=== PATIENT | female | born 1955 | race African-American/Black ===

== ENCOUNTER 2016-11-20 19:22 | Emergency (ER) | payer SELFPAY ==
[2016-11-20 19:33] VITALS: BP 135/70
--- NOTE | 2016-11-20 21:10 | ER Document Report ---
HPI - HPI Pain Level: 3 Notes: Patient is a 61-year-old female presents the ED complaining of right superior tooth pain 1 day. Patient states that she has not noticed any purulent discharge. The pain does not radiate. Patient states that she feels a little more swollen on the rt side of the mouth compared to her other side. Patient states that she is still eating and drinking without any difficulties. Patient states that she does have dental insurance but is doing research on dentist to see who will be able to "put her out" for tooth extraction. Denies any drug allergies. Patient does have hypertension and takes medication for that. Denies any other significant past medical history. Patient states that she does smoke but denies any other illicit drugs. Patient requests work note for today, but wants to go back tomorrow. Denies any fever, headache, dizziness, URI, sore throat, dysphagia, chest pain, palpitations, syncope, cough, shortness breath, wheeze, abdominal pain, nausea/vomiting/diarrhea, dysuria, joint pains, or rash. Denies any recent travel, illness, sick contacts. - ROS Notes: REVIEW OF SYSTEMS: CONSTITUTIONAL : Denies fever, chills, or sweats. Denies recent illness. EENT: see hpi CARDIOVASCULAR: Denies chest pain. Denies palpitations or racing or irregular heart beat. Denies ankle edema. RESPIRATORY: Denies cough, cold, or chest congestion. Denies shortness of breath, difficulty breathing, or wheezing. GASTROINTESTINAL: Denies abdominal pain or distention. Denies nausea, vomiting , or diarrhea. Denies blood in vomitus, stools, or per rectum. Denies black, tarry stools. Denies constipation. GENITOURINARY: Denies difficulty urinating, painful urination, burning, frequency, blood in urine, or discharge. MUSCULOSKELETAL: Denies back or neck pain or stiffness. Denies joint pain or swelling. SKIN: Denies rash, lesions or sores. NEUROLOGICAL: Denies confusion or altered mental status. Denies passing out or loss of consciousness. Denies dizziness or lightheadedness. Denies headache. Denies weakness or paralysis or loss of use of either side. Denies problems with gait or speech. Denies sensory loss, numbness, or tingling. ALL OTHER SYSTEMS REVIEWED AND NEGATIVE. Dictation was performed using [employer] voice recognition software - REPRODUCTIVE Reproductive: DENIES: : Past Medical History - Social History Smoking Status: Current Every Day Smoker Family History: Reviewed & Not Pertinent Patient has suicidal ideation: No Patient has homicidal ideation: No - Past Medical History Cardiac Medical History: Reports: Hx Hypertension Renal/ Medical History: Denies: Hx Peritoneal Dialysis Past Surgical History: Reports: Hx Hysterectomy - partial - Immunizations Hx Diphtheria, Pertussis, Tetanus Vaccination: Yes Vertical Provider Document - CONSTITUTIONAL Agree With Documented VS: Yes Notes: PHYSICAL EXAMINATION: GENERAL: Well-appearing, well-nourished and in no acute distress. HEAD: Atraumatic, normocephalic. EYES: Pupils equal round and reactive to light, extraocular movements intact, sclera anicteric, conjunctiva are normal. ENT: EAC clear b/l. TM's intact b/l without erythema, fluid, or perforation. Nares patent and without discharge. oropharynx clear without exudates. No tonsilar hypertrophy or erythema. Moist mucous membranes. No sinus tenderness. No tongue protrusion. [place] midline. No uvular deviation. Mouth: poor dentition, caries throughout, missing teeth. No obvious abscess or discharge noted. No ward's. + tenderness to palp of the #2-3. NECK: Normal range of motion, supple without lymphadenopathy. No rigidity/ meningismus. LUNGS: Breath sounds clear to auscultation bilaterally and equal. No wheezes rales or rhonchi. HEART: Regular rate and rhythm without murmurs, rubs, gallops. Extremities: No cyanosis, clubbing, or edema b/l. Peripheral pulses 2+. Capillary refill less than 3 seconds. NEUROLOGICAL: Cranial nerves grossly intact. Normal speech, normal gait. Normal sensory, motor exams PSYCH: Normal mood, normal affect. SKIN: Warm, Dry, normal turgor, no rashes or lesions noted. - INFECTION CONTROL TRAVEL OUTSIDE OF THE [place]S. IN LAST 30 DAYS: No - RESPIRATORY O2 Sat by Pulse Oximetry: 95 Course - Re-evaluation Re-evalutation: 11/20/16 21:23 Patient is an afebrile, well-hydrated, 61-year-old female presents to the ED with dental pain, ? Infection versus nerve etiology. Vitals are stable. PE otherwise unremarkable. Low suspicion for any oropharyngeal/retropharyngeal abscess, Ward's, sepsis, respiratory compromise, meningitis, or other deep space infection. I will cover her with clindamycin 3 times daily 10 days. Conservative measures otherwise for symptoms as needed. Patient will schedule an appointment with dentist in the next week. Recheck with your PCM in 2-3 days. Return to ED with any worsening/concerning symptoms otherwise as reviewed discharge. Patient is in agreement. - Vital Signs Vital signs: Temp Pulse Resp BP Pulse Ox 98.5 F 97 20 135/70 H 95 11/20/16 19:31 11/20/16 19:31 11/20/16 19:31 11/20/16 19:31 11/20/16 19:31 Discharge - Discharge Clinical Impression: Toothache Instructions: Toothache ([facility]), Clindamycin ([facility]) Additional Instructions: [place] and floss twice daily Tylenol/ibuprofen as needed Salt water gargles Peroxide and mouthwash rinses Maintain adequate fluid intake Schedule an appointment with a dentist this week* Recheck with your PCM in 2-3 days for a recheck Return to the ED with any worsening symptoms and/or development of fever, headache, trouble swallowing, purulent discharge, swelling underneath tongue, chest pain, palpitations, syncope, shortness of breath, trouble breathing, abdominal pain, n/v/d, or other worsening symptoms that are concerning to you. Prescriptions: Clindamycin HCl 300 mg PO TID #30 capsule Forms: Elevated Blood Pressure, Smoking Cessation Education, Return to Work Referrals: [facility] [Provider Group] - Follow up as needed
== END 2016-11-20 21:26 | disposition home or self-care (01) ==
LOC: ER 19:22
DX: K08.9 Disorder of teeth and supporting structures, unspecified (principal); I10 Essential (primary) hypertension; F17.200 Nicotine dependence, unspecified, uncomplicated; Z90.712 Acquired absence of cervix with remaining uterus
CPT/HCPCS: 99282

== ENCOUNTER → 2017-05-13 | Emergency (ER) | payer BC | LOC: ER 16:00 | DX: J32.9 Chronic sinusitis, unspecified (principal); J40 Bronchitis, not specified as acute or chronic; I10 Essential (primary) hypertension; R05 Cough; R09.89 Other specified symptoms and signs involving the circulatory and respiratory systems; Z79.899 Other long term (current) drug therapy; R09.81 Nasal congestion | CPT/HCPCS: 99283 ==

== ENCOUNTER 2017-06-20 16:10 | Emergency (ER) | payer SELFPAY ==
[2017-06-20 16:15] VITALS: BP 159/87
[2017-06-20] MEDS ORDERED: PENICILLIN V POTASSIUM 500 MG TABLET PO ONE (17:43)
[2017-06-20] MEDS ORDERED: LIDOCAINE 2% VISCOUS SOLN 20 ML UDCUP PO ONE (17:43)
--- NOTE | 2017-06-20 17:49 | ER Document Report ---
ED Oral Problem - General Chief Complaint: Toothache Stated Complaint: FACIAL SWELLING Time Seen by Provider: 06/20/17 17:23 Mode of Arrival: Ambulatory Information source: Patient Notes: 61-year-old female presented to ED for complaint of dental pain on the right upper back jaw times a week. She states she also has some swelling to her mouth and face. TRAVEL OUTSIDE OF THE U[place]S. IN LAST 30 DAYS: No - HPI Patient complains to provider of: Swelling of face - Minimal, Swelling of jaw, Toothache Onset: Last week Onset: Gradual Quality of pain: Sharp, Throbbing Severity: Severe Pain Level: 5 Swollen jaw/face: Mild Associated symptoms: Jaw pain, Toothache Worsened by: Cold Relieved by: Nothing Similar symptoms previously: Yes Recently seen / treated by doctor/dentist: No - Related Data Allergies/Adverse Reactions: No Known Allergies Allergy (Unverified 06/20/17 16:11) Past Medical History - General Information source: Patient - Social History Smoking Status: Current Every Day Smoker Cigarette use (# per day): Yes - 10 cigarettes a day Chew tobacco use (# tins/day): No Smoking Education Provided: Yes - 4 minutes Frequency of alcohol use: None Drug Abuse: None Occupation: [employer] Lives with: Family - Adult son Family History: COPD, DM, Hypertension, Malignancy. denies: Arthritis, CAD, CVA , Hyperlipidemia, Thyroid Disfunction Patient has suicidal ideation: No Patient has homicidal ideation: No - Past Medical History Cardiac Medical History: Reports: Hx Hypertension Pulmonary Medical History: Reports: None EENT Medical History: Reports: None Neurological Medical History: Reports: None Endocrine Medical History: Reports: None Renal/ Medical History: Reports: None Malignancy Medical History: Reports: None GI Medical History: Reports: None Musculoskeltal Medical History: Reports None Skin Medical History: Reports None Psychiatric Medical History: Reports: None Traumatic Medical History: Reports: None Infectious Medical History: Reports: None Past Surgical History: Reports: Hx Hysterectomy - Immunizations Hx Diphtheria, Pertussis, Tetanus Vaccination: Yes Review of Systems - Review of Systems Notes: Constitutional: [PRESENT: as per HPI. ABSENT: chills, fever(s), headache(s), weight gain, weight loss] Eyes: [ABSENT: visual disturbances] Ears: [ABSENT: hearing changes] Mouth and throat: Dental pain swelling to the jaw and face Cardiovascular: [ABSENT: chest pain, dyspnea on exertion, edema, orthropnea, palpitations] Respiratory: [ABSENT: cough, hemoptysis] Gastrointestinal: [ABSENT: abdominal pain, constipation, diarrhea, hematemesis, hematochezia, nausea, vomiting] Genitourinary: [ABSENT: dysuria, hematuria] Musculoskeletal: [ABSENT: joint swelling] Integumentary: [ABSENT: rash, wounds] Neurological: [ABSENT: abnormal gait, abnormal speech, confusion, dizziness, focal weakness, syncope] Psychiatric: [ABSENT: anxiety, depression, homicidal ideation, suicidal ideation ] Endocrine: [ABSENT: cold intolerance, heat intolerance, menstrual abnormalities , polydipsia, polyuria] Hematologic/Lymphatic: [ABSENT: easy bleeding, easy bruising, lymphadenopathy] Physical Exam - Vital signs Vitals: Temp Pulse Resp BP Pulse Ox 97.9 F 92 16 159/87 H 93 06/20/17 16:14 06/20/17 16:14 06/20/17 16:14 06/20/17 16:14 06/20/17 16:14 - Notes Notes: PHYSICAL EXAMINATION: GENERAL: Well-appearing, well-nourished and in no acute distress. HEAD: Atraumatic, normocephalic. EYES: Pupils equal round and reactive to light, extraocular movements intact, conjunctiva are normal. ENT: Nares patent, oropharynx clear without exudates. Moist mucous membranes. Tooth #3 inflamed with redness to the gums. Minimal swelling to the face at the area of the upper jaw. NECK: Normal range of motion, supple without lymphadenopathy LUNGS: Breath sounds clear to auscultation bilaterally and equal. No wheezes rales or rhonchi. HEART: Regular rate and rhythm without murmurs ABDOMEN: Soft, nontender, nondistended abdomen. No guarding, no rebound. No masses appreciated. Female : deferred Musculoskeletal: Normal range of motion, no pitting or edema. No cyanosis. NEUROLOGICAL: Cranial nerves grossly intact. Normal speech, normal gait. Normal sensory, motor exams PSYCH: Normal mood, normal affect. SKIN: Warm, Dry, normal turgor, no rashes or lesions noted. Course - Re-evaluation Re-evalutation: 06/20/17 19:03 Patient was treated with Penicillin VK and viscous lidocaine for her dental pain and minimal swelling to her face. Patient was instructed on use of salt and soda solution to rinse her mouth frequently, Tylenol, and ibuprofen for her pain. Patient was instructed that the only real definitive care for this dental pain is to visit the dentist and get treatment for her tooth. - Vital Signs Vital signs: Temp Pulse Resp BP Pulse Ox 97.9 F 92 16 159/87 H 93 06/20/17 16:14 06/20/17 16:14 06/20/17 16:14 06/20/17 16:14 06/20/17 16:14 Discharge - Discharge Clinical Impression: Pain due to dental caries Condition: Stable Disposition: HOME, SELF-CARE Additional Instructions: TOOTHACHE: Your pain is due to dental decay. The tooth must be repaired in order for you to feel better. You will, therefore, be referred to a dentist. We do not have dentists on the staff at [facility]. Severe swelling or drainage around a tooth usually means a dental abscess. This also requires evaluation and treatment by the dentist, but antibiotics may be prescribed while awaiting dental treatment. You should be rechecked immediately if you develop major swelling of the face, increasing pain, a lump in the jaw or gums, headache, difficulty swallowing, or fever. PENICILLIN V K: You have been given a prescription for Penicillin VK. Your physician has determined that this is the best antibiotic for your condition. Pen VK can be taken with meals, however more of the antibiotic gets into the bloodstream if it's taken on an empty stomach. Penicillin usually has no side effects. However, allergy to penicillins is common. If you have had an allergic reaction to any drug of the penicillin family, you should never take any other penicillin. Notify your doctor at once if you develop hives, itching, swelling, faintness, or shortness of breath. You have been provided with some viscous lidocaine which you can apply a small amount to your sore gums every 3-4 hours for your dental pain. Can also gargle with some warm salt and soda solution before applying the viscous lidocaine. Salt and soda solution 1 quart of water 1 tablespoon of salt 1 teaspoon of baking soda Mixed 3 ingredients together and boil for 1 minute Placed in a covered quart jar Use 1/2 ounce of cold solution to gargle 3 times a day FOLLOW-UP CARE: You have been referred for follow-up care to the dentists listed below. Call the dentists office for an appointment as you were instructed or within the next two days. If you experience worsening or a significant change in your symptoms, notify the physician immediately or return to the Emergency Department at any time for re-evaluation. [facility] [address] [place], [place] mornings, by appointment [facility] [address] [place] [address] [facility] [place] [address] [facility] [address] [facility] [address] [facility] [email or web address] [facility] [address] [place] [address] Sunday- 8:00am to 5:00 pm Will see patients from other [facility]. Charges based on income and family size and accepts Medicare, Medicaid, and Insurances Will pull molars [facility] [id number] Hours of Operation 8:00 am - 4:30 pm weekdays The following dental offices accept Medicaid: [facility] Dr. Claudio Dr. Bazan Dr. Carroll Dr. Miranda Amol Bah [place], and Sonya oral surgery Dr. Roldan ([place]) Dr. Vidal ([place]eg[place]) [facility] Drs. Lynne and Edu ([place]) Dr. Cao ([place]) [facility] Dr. Leija ([place]) Drs. Brownlee and ([place]) Medicaid Care Line Prescriptions: Penicillin V Potassium [Penicillin Vk 500 mg Tablet] 500 mg PO BID #20 tablet Forms: Elevated Blood Pressure, Smoking Cessation Education, Return to School Referrals: DANIAL HALL MD [Primary Care Provider] - Follow up as needed
== END 2017-06-20 18:01 | disposition home or self-care (01) ==
LOC: ER 16:10
DX: K08.9 Disorder of teeth and supporting structures, unspecified (principal); K02.9 Dental caries, unspecified; F17.210 Nicotine dependence, cigarettes, uncomplicated
CPT/HCPCS: 99282; J3490

== ENCOUNTER 2017-10-12 19:10 | Emergency (ER) | payer SELFPAY ==
[2017-10-12 19:22] VITALS: BP 168/75
[2017-10-12] MEDS ORDERED: ACETAMINOPHEN 325 MG TABLET PO ONE (19:50)
[2017-10-12] MEDS ORDERED: PENICILLIN V POTASSIUM 500 MG TABLET PO ONE (19:50)
--- NOTE | 2017-10-12 19:54 | ER Document Report ---
HPI - HPI Pain Level: 5 Context: Patient is a 61-year-old female presents emergency room with a chief complaint of right upper toothache since last evening. Patient admits to intermittent toothaches in the past and knows that she has to have this tooth pulled but has not been compliant with following up with the dentist secondary to pain concerns and she does not like needles. Otherwise denies any fever, facial swelling, nausea or vomiting or difficulty tolerating secretions. She denies any allergies. Patient was brought to [facility] secondary to difficulty obtaining a pulse ox in triage. Patient currently satting 98 200% on room air she is in no evidence of visual respiratory distress able to speak in clear sentences and denies any shortness of breath or chest pain - REPRODUCTIVE Reproductive: DENIES: : Past Medical History - Social History Smoking Status: Former Smoker Family History: COPD, DM, Hypertension, Malignancy. denies: Arthritis, CAD, CVA , Hyperlipidemia, Thyroid Disfunction - Past Medical History Cardiac Medical History: Reports: Hx Hypertension Renal/ Medical History: Denies: Hx Peritoneal Dialysis Past Surgical History: Reports: Hx Hysterectomy - Immunizations Hx Diphtheria, Pertussis, Tetanus Vaccination: Yes Vertical Provider Document - CONSTITUTIONAL Agree With Documented VS: No - patient is not hypoxic satting 98% on RA Notes: PHYSICAL EXAM GENERAL: Alert, interacts well. HEENT: NCAT, pale conjunctiva, extraocular movements intact, pupils PERRL. Patient admits to pain of the right upper jaw tooth #2 without any evidence of purulent drainage, gingival inflammation. Airway patent. No evidence of tonsillar enlargement, peritonsillar abscess, retropharyngeal abscess. LUNGS: Clear to auscultation bilaterally, no wheezes, rales, or rhonchi. No respiratory distress. HEART: Regular rate and rhythm. No murmurs, gallops, or rubs. EXTREMITIES: Moves all 4 extremities spontaneously. No edema, radial pulses 2/ 4 bilaterally. No cyanosis. NEUROLOGICAL: Alert and oriented x4. Normal speech. PSYCH: Normal affect, normal mood. SKIN: Warm, dry, normal turgor. No rashes or lesions noted. - INFECTION CONTROL TRAVEL OUTSIDE OF THE [place].S. IN LAST 30 DAYS: No Course - Re-evaluation Re-evalutation: 10/12/17 19:56 Presentation is most consistent with likely an infected tooth. Airway is patent. Vitals within normal limits. Patient is able swallow without any difficulty. There is no significant facial swelling. Patient will be started on antibiotics and a limited number of pain medications. I've instructed to follow-up with dentistry as earliest ability for definitive management. Return precautions and follow-up recommendations have been discussed at length. - Vital Signs Vital signs: Temp Pulse Resp BP Pulse Ox 98.5 F 98 18 168/75 H 84 L 10/12/17 19:21 10/12/17 19:21 10/12/17 19:21 10/12/17 19:21 10/12/17 19:21 Discharge - Discharge Clinical Impression: Toothache Condition: Good Disposition: HOME, SELF-CARE Additional Instructions: TOOTHACHE: Your pain is due to dental decay. The tooth must be repaired in order for you to feel better. You will, therefore, be referred to a dentist. We do not have dentists on the staff at [facility]. Severe swelling or drainage around a tooth usually means a dental abscess. This also requires evaluation and treatment by the dentist, but antibiotics may be prescribed while awaiting dental treatment. You should be rechecked immediately if you develop major swelling of the face, increasing pain, a lump in the jaw or gums, headache, difficulty swallowing, or fever. PENICILLIN V K: You have been given a prescription for Penicillin VK. Your physician has determined that this is the best antibiotic for your condition. Pen VK can be taken with meals, however more of the antibiotic gets into the bloodstream if it's taken on an empty stomach. Penicillin usually has no side effects. However, allergy to penicillins is common. If you have had an allergic reaction to any drug of the penicillin family, you should never take any other penicillin. Notify your doctor at once if you develop hives, itching, swelling, faintness, or shortness of breath. FOLLOW-UP CARE: You have been referred for follow-up care to the dentists listed below. Call the dentists office for an appointment as you were instructed or within the next two days. If you experience worsening or a significant change in your symptoms, notify the physician immediately or return to the Emergency Department at any time for re-evaluation. [facility] [address] Sunday mornings, by appointment [place] [id number] [place] [address] [facility] [address] [facility] [address] [facility] [address] [facility] [email or web address] [facility] [address] [place] [address] Sunday- 8:00am to 5:00 pm Will see patients from other [facility]. Charges based on income and family size and accepts Medicare, Medicaid, and Insurances Will pull molars [facility] Student Clinics [facility] [id number] Hours of Operation 8:00 am - 4:30 pm weekdays The following dental offices accept Medicaid: [facility] Dr. Claudio Dr. Bazan Dr. Carroll Dr. Miranda Amol Bah, Greta, and Sonya oral surgery Dr. Roldan ([place]) Dr. Vidal ([place]) [facility] Drs. Velasco ([place]) Dr. Cao ([place]) [facility] Dr. Leija ([place]) Drs. Brownlee and ([place]) Medicaid Care Line Prescriptions: Lisinopril/Hydrochlorothiazide [Lisinopril-Hctz 20-25 mg Tab] 1 each PO DAILY # 10 tablet Penicillin V Potassium [Penicillin Vk 500 mg Tablet] 500 mg PO TID 7 Days #21 tablet Forms: Elevated Blood Pressure, Return to Work Referrals: DANIAL HALL MD [Primary Care Provider] - Follow up in 3-5 days
== END 2017-10-12 20:00 | disposition home or self-care (01) ==
LOC: ER 19:10
DX: K08.9 Disorder of teeth and supporting structures, unspecified (principal); I10 Essential (primary) hypertension; Z87.891 Personal history of nicotine dependence; Z90.710 Acquired absence of both cervix and uterus
CPT/HCPCS: 99282

== ENCOUNTER 2017-12-18 20:04 | Emergency (ER) | payer OTHER ==
[2017-12-18] MEDS ORDERED: IPRATROPIUM/ALBUTEROL 0.5-2.5 MG/3 ML AMPUL NEB ONE (21:38)
[2017-12-18] MEDS ORDERED: PREDNISONE 20 MG TABLET PO ONE (21:38)
--- NOTE | 2017-12-18 21:41 | ER Document Report ---
ED Medical Screen (RME) - General Chief Complaint: Sore throat, cough Stated Complaint: SHORT OF BREATH Time Seen by Provider: 12/18/17 21:34 Notes: 62-year-old female with productive cough for 1 week, congestion, fever or chills , states she gets short of breath after coughing episodes but otherwise feels okay. No chest pain, vomiting, or other symptoms reported. Past medical history of hypertension, former smoker. TRAVEL OUTSIDE OF THE [place].S. IN LAST 30 DAYS: No - Related Data Allergies/Adverse Reactions: No Known Allergies Allergy (Verified 10/12/17 19:10) Past Medical History - Past Medical History Cardiac Medical History: Reports: Hx Hypertension Renal/ Medical History: Denies: Hx Peritoneal Dialysis Past Surgical History: Reports: Hx Hysterectomy - Immunizations Hx Diphtheria, Pertussis, Tetanus Vaccination: Yes Physical Exam - Vital signs Vitals: Temp Pulse BP Pulse Ox 98.9 F 87 136/65 H 93 12/18/17 20:28 12/18/17 20:28 12/18/17 20:28 12/18/17 20:28 - Respiratory Respiratory status: No: Respiratory distress, Labored Breath sounds: Decreased air movement, Nonproductive cough. No: Wheezing Course - Re-evaluation Re-evalutation: Patient speaking in full sentences, has decreased breath sounds bilaterally, no respiratory distress, borderline hypoxia on initial oxygen saturation. She is refusing "being poked"/labs initially, starting with CXR and medications. - Vital Signs Vital signs: Temp Pulse Resp BP Pulse Ox 98.9 F 87 136/65 H 93 12/18/17 20:28 12/18/17 20:28 12/18/17 20:28 12/18/17 20:28 Doctor's Discharge - Discharge Referrals: DANIAL HALL MD [Primary Care Provider] - Follow up as needed
--- NOTE | 2017-12-18 22:10 | RADIOLOGY REPORT (SQ) ---
EXAM DESCRIPTION: CHEST 2 VIEWS COMPLETED DATE/TIME: 12/18/2017 10:01 pm REASON FOR STUDY: productive cough for 1 week COMPARISON: 06/08/2015 EXAM PARAMETERS: NUMBER OF VIEWS: two views TECHNIQUE: Digital Frontal and Lateral radiographic views of the chest acquired. RADIATION DOSE: NA LIMITATIONS: none FINDINGS: LUNGS AND PLEURA: There appear to be mild chronic interstitial changes in the lung bases. No infiltrate or effusion is seen. MEDIASTINUM AND HILAR STRUCTURES: No masses or contour abnormalities. HEART AND VASCULAR STRUCTURES: Heart normal size. No evidence for failure. BONES: No acute findings. HARDWARE: None in the chest. OTHER: No other significant finding. IMPRESSION: Mild chronic lung changes with no acute cardiopulmonary disease. TECHNICAL DOCUMENTATION: JOB ID: [id number] [employer]- All Rights Reserved Reading location - IP/workstation name: [email or web address]
[2017-12-18] MEDS ORDERED: ALBUTEROL SULFATE HFA (90 MCG/PUFF) 8 GM MDI (1 MDI/ER DISP) IH ONE (22:36)
--- NOTE | 2017-12-18 22:36 | ER Document Report ---
ED General - General Chief Complaint: Sore throat, cough Stated Complaint: SHORT OF BREATH Time Seen by Provider: 12/18/17 21:34 Notes: Patient is a pleasant 62-year-old female presents with complaint of cough and congestion. She said some wheezing. She is a former smoker and quit 3 and half months ago. Denies any fevers. No vomiting. She has had a little bit of a sore throat from coughing. No other complaints at this time. She was seen in triage by her physicians and administrative assistant front desk who ordered a DuoNeb treatment. Patient says she has feels much improved after DuoNeb treatment. TRAVEL OUTSIDE OF THE [place] IN LAST 30 DAYS: No - Related Data Allergies/Adverse Reactions: No Known Allergies Allergy (Verified 10/12/17 19:10) Past Medical History - Social History Smoking Status: Former Smoker Frequency of alcohol use: None Drug Abuse: None Family History: COPD, DM, Hypertension, Malignancy. denies: Arthritis, CAD, CVA , Hyperlipidemia, Thyroid Disfunction Patient has suicidal ideation: No Patient has homicidal ideation: No - Past Medical History Cardiac Medical History: Reports: Hx Hypertension Renal/ Medical History: Denies: Hx Peritoneal Dialysis Past Surgical History: Reports: Hx Hysterectomy - Immunizations Hx Diphtheria, Pertussis, Tetanus Vaccination: Yes Review of Systems - Review of Systems Notes: My Normal Review Basic REVIEW OF SYSTEMS: CONSTITUTIONAL : Denies fever, chills, or sweats. Denies recent illness. EENT: Sore throat. CARDIOVASCULAR: Denies chest pain. RESPIRATORY: Recurrent cough. Some wheezing. GASTROINTESTINAL: Denies abdominal pain. Denies nausea, vomiting, or diarrhea. Denies constipation. Last BM: MUSCULOSKELETAL: Denies neck or back pain or joint pain or swelling. SKIN: Denies rash or skin lesions. NEUROLOGICAL: Denies altered mental status or loss of consciousness. Denies weakness or paralysis or loss of use of either side. Denies problems with gait or speech. Denies sensory or motor loss. ALL OTHER SYSTEMS REVIEWED AND NEGATIVE. Physical Exam - Vital signs Vitals: Temp Pulse BP Pulse Ox 98.9 F 87 136/65 H 93 12/18/17 20:28 12/18/17 20:28 12/18/17 20:28 12/18/17 20:28 - Notes Notes: General Appearance: Well nourished, alert, cooperative, no acute distress, no obvious discomfort. Well appearing. Vitals: reviewed, See vital signs table. Head: no swelling or tenderness to the head Eyes: PERRL, EOMI, Conjuctiva clear Mouth: No decreasd moisture Throat: No tonsillar inflammation, No airway obstruction, No lymphadenopathy Neck: Supple, no neck tenderness, No thyromegaly Lungs: Clear lung sounds bilaterally. No wheezing. No accessory muscle use. No tachypnea. Heart: Normal rate, Regular rythm, No murmur, no rub Skin: warm, dry, appropriate color, no rash Neuro: speech clear, oriented x 3, normal affect, responds appropriately to questions. Course - Re-evaluation Re-evalutation: 12/18/17 22:51 Patient has history of findings consistent with bronchitis. Her lung soto completely cleared with one DuoNeb treatment. Will place on prednisone. She is not a diabetic. We will give an albuterol inhaler to use. Chest x-ray does not show evidence of pneumonia. She has no fever. I do not feel she needs antibiotics at this time. Strongly encouraged her to return to ER immediately if she has recurrent difficulty breathing, any wheezing not responding to inhaler, fevers, or she feels she is worsening in any way. Patient agrees with plan will be discharged home. Dictation of this chart was performed using voice recognition software; therefore, there may be some unintended grammatical errors. - Vital Signs Vital signs: Temp Pulse Resp BP Pulse Ox 98.9 F 87 136/65 H 93 12/18/17 20:28 12/18/17 20:28 12/18/17 20:28 12/18/17 20:28 Discharge - Discharge Clinical Impression: Bronchitis Condition: Good Disposition: HOME, SELF-CARE Additional Instructions: BRONCHITIS WITH BRONCHOSPASM (WHEEZING): You have bronchitis with bronchospasm (wheezing). Sometimes people develop wheezing with a chest cold. This occurs either because of an underlying tendency toward asthma or because the virus itself irritates the bronchial tubes. This irritation causes cough, shortness of breath, and wheezing. Emergency treatment of bronchospasm may include adrenaline shots or bronchodilator aerosol. You may feel lightheaded and have a rapid pulse for an hour or two. Rest and get plenty of fluids. At home, we'll treat you with a bronchodilator inhaler. Corticosteroids may be required for some patients. Until you recover, avoid chemical fumes, dusts, pollens, and exercising in very cold or dry air. If you smoke, stop now! Most cases of bronchitis get better without antibiotics. We prescribe antibiotics when we believe bacteria are damaging your airways, or if there's high risk the bronchitis will worsen into pneumonia. Increase your fluid intake. A cool mist humidifier may make your lungs more comfortable. An expectorant (cough medicine that loosens phlegm) can help. Repeated episodes of bronchitis and bronchospasm may result in lung damage -- for example, chronic bronchitis, recurrent pneumonias, or emphysema. If you develop a fever, increased wheezing, chest pain, or severe shortness of breath, you should contact the doctor immediately. INHALED BRONCHODILATORS: You have received a treatment of and/or prescription for an inhaled bronchodilator -- a medication which stimulates the airways in the lung to dilate. This improves the flow of air in asthma, bronchitis, and emphysema. These medicines have some similarity to adrenaline, and can cause similar side effects: shakiness, racing heart, and a sense of nervousness. These side effects decrease with time. Contact your doctor if these side effects are severe. Do not over-use the medicine. Too-frequent use of the inhaler may make it ineffective. Call your doctor if the inhaler is not controlling your symptoms at the prescribed doses. STEROID MEDICATION: You have been given an injection of or oral medicine of the cortisone/ steroid class. This medication is used to control inflammation or allergy. Sergio t is usually only given for a short period of time, until the acute process subsides. There are usually no side effects from short-term use of cortisone-like medications. Some persons feel an increased sense of well-being and are not sleepy at bedtime. Long-term use of cortisone medications is best avoided, unless required for a severe condition. If your condition does not remit, or relapses after the course of corticosteroid medication, you should consult your physician. FOLLOW-UP CARE: If you have been referred to a physician for follow-up care, call the physician s office for an appointment as you were instructed or within the next two days. If you experience worsening or a significant change in your symptoms, notify the physician immediately or return to the Emergency Department at any time for re-evaluation. Please use the inhaler as 2 puffs as needed not to exceed 2 puffs every 2 hours. Please follow up with a doctor for reevaluation in 2-3 days. please return to the ER if you develop fevers, worsening difficulty breathing, or wheezing not improving with the inhaler. Prescriptions: Prednisone [Deltasone 20 mg Tablet] 3 tab PO DAILY 3 Days tablet Forms: Return to Work Referrals: DANIAL HALL MD [Primary Care Provider] - 12/20/17
[2017-12-18 23:53] VITALS: BP 163/87
== END 2017-12-18 23:36 | disposition home or self-care (01) ==
LOC: ER 20:04
DX: J40 Bronchitis, not specified as acute or chronic (principal); R05 Cough; J02.9 Acute pharyngitis, unspecified; R06.2 Wheezing; I10 Essential (primary) hypertension; Z87.891 Personal history of nicotine dependence; Z82.5 Family history of asthma and other chronic lower respiratory diseases
CPT/HCPCS: 94640; 99285; 71046; J7512; J3490; J7620

== ENCOUNTER 2017-12-23 20:41 | Emergency (ER) | payer OTHER ==
[2017-12-23] MEDS ORDERED: IPRATROPIUM/ALBUTEROL 0.5-2.5 MG/3 ML AMPUL NEB ONE (21:41)
--- NOTE | 2017-12-23 21:44 | ER Document Report ---
ED Respiratory Problem - General Chief Complaint: Breathing Difficulty Stated Complaint: BREATHING PROBLEMS Time Seen by Provider: 12/23/17 21:33 Notes: Patient is a 62-year-old female comes emergency department for chief complaint of difficulty breathing. She states that she was seen 1 week ago for cough and shortness of breath, told she had bronchitis, just completed steroids yesterday , states she does not feel any better. She denies fever, she states that she becomes very easily winded. She denies chest pain, dizziness, passing out. Former smoker. No daily medications other than the recent steroid and albuterol inhaler. TRAVEL OUTSIDE OF THE [place] IN LAST 30 DAYS: No - Related Data Allergies/Adverse Reactions: No Known Allergies Allergy (Verified 10/12/17 19:10) Past Medical History - General Information source: Patient - Social History Smoking Status: Former Smoker Frequency of alcohol use: None Drug Abuse: None Lives with: Alone Family History: COPD, DM, Hypertension, Malignancy. denies: Arthritis, CAD, CVA , Hyperlipidemia, Thyroid Disfunction - Past Medical History Cardiac Medical History: Reports: Hx Hypertension Renal/ Medical History: Denies: Hx Peritoneal Dialysis Past Surgical History: Reports: Hx Hysterectomy - Immunizations Hx Diphtheria, Pertussis, Tetanus Vaccination: Yes Review of Systems - Review of Systems Constitutional: No symptoms reported EENT: No symptoms reported Cardiovascular: No symptoms reported Respiratory: See HPI Gastrointestinal: No symptoms reported Genitourinary: No symptoms reported Female Genitourinary: No symptoms reported Musculoskeletal: No symptoms reported Skin: No symptoms reported Hematologic/Lymphatic: No symptoms reported Neurological/Psychological: No symptoms reported Physical Exam - Vital signs Vitals: Temp Pulse Resp BP Pulse Ox 98.4 F 105 H 22 H 167/90 H 92 12/23/17 20:46 12/23/17 20:46 12/23/17 20:46 12/23/17 20:46 12/23/17 20:46 - Notes Notes: GENERAL: Alert, interacts well. No acute distress. HEAD: Normocephalic, atraumatic. EYES: Pupils equal, round, and reactive to light. Extraocular movements intact. ENT: Oral mucosa moist, tongue midline. Normal oropharyngeal exam NECK: Full range of motion. Supple. Trachea midline. LUNGS: Mild tachypnea with some pursed lip breathing, decreased breath sounds, occasional cough HEART: Regular rate and rhythm. No murmur ABDOMEN: Soft, non-tender. Non-distended. Bowel sounds present in all 4 quadrants. EXTREMITIES: Moves all 4 extremities spontaneously. No edema, normal radial and dorsalis pedis pulses bilaterally. No cyanosis. BACK: no cervical, thoracic, lumbar midline tenderness. No saddle anesthesia, normal distal neurovascular exam. NEUROLOGICAL: Alert and oriented x3. Normal speech. [cranial nerves II through XII grossly intact]. PSYCH: Normal affect, normal mood. SKIN: Warm, dry, normal turgor. No rashes or lesions noted. Course - Re-evaluation Re-evalutation: On my evaluation patient is mildly tachypneic with pursed lips, has decreased breath sounds, otherwise unremarkable physical exam. Borderline tachycardia, no hypoxia. Given breathing treatment, chest x-ray performed and unremarkable, patient refuses labs. On reevaluation discussed with patient. She only took prednisone for 3 days, she definitely appears to need more for her resolving bronchitis. Patient in agreement with this but insists that she needs antibiotics, states that she is certain she is getting pneumonia. She does not have spiking fever, pneumonia on x-ray, or productive cough, however because of ongoing respiratory symptoms I did agree to place patient on doxycycline. Patient declining additional workup but does agree to ambulate with pulse oxygen measurement, she actually did this very well without any difficulty, no respiratory distress, tachycardia , or hypoxia. Patient states she has close follow-up with primary care already. Discussed return precautions. Patient states understanding and agreement. - Vital Signs Vital signs: Temp Pulse Resp BP Pulse Ox 97.9 F 95 18 119/85 96 12/23/17 22:42 12/23/17 22:42 12/23/17 22:42 12/23/17 22:42 12/23/17 22:42 Discharge - Discharge Clinical Impression: Shortness of breath Condition: Stable Disposition: HOME, SELF-CARE Additional Instructions: Your chest x-ray does not show any new or concerning findings. Your evaluation is consistent with not yet resolved bronchitis at this time. This can take time to resolve. We are extending and then slowly lowering your prednisone dosing, take as prescribed. Continue albuterol at home. Rest. Follow-up with your primary care provider. Return if you worsen including spiking fever, passing out, difficulty breathing, chest pain, or any other concerning or worsening symptoms. Prescriptions: Doxycycline Hyclate 100 mg PO BID #14 capsule Lisinopril/Hydrochlorothiazide [Lisinopril-Hctz 20-25 mg Tab] 1 each PO DAILY # 30 tablet Prednisone [Deltasone 10 mg Tablet] 10 mg PO ASDIR PRN #21 tablet PRN Reason: Forms: Return to Work Referrals: DANIAL HALL MD [Primary Care Provider] - Follow up as needed
--- NOTE | 2017-12-23 22:19 | RADIOLOGY REPORT (SQ) ---
EXAM DESCRIPTION: CHEST SINGLE VIEW COMPLETED DATE/TIME: 12/23/2017 10:11 pm REASON FOR STUDY: shortness of breath COMPARISON: 12/18/2017 EXAM PARAMETERS: NUMBER OF VIEWS: One view. TECHNIQUE: Single frontal radiographic view of the chest acquired. RADIATION DOSE: NA LIMITATIONS: None. FINDINGS: LUNGS AND PLEURA: No opacities, masses or pneumothorax. No pleural effusion. MEDIASTINUM AND HILAR STRUCTURES: No masses. Contour normal. HEART AND VASCULAR STRUCTURES: Heart normal in size. Normal vasculature. BONES: No acute findings. HARDWARE: None in the chest. OTHER: No other significant finding. IMPRESSION: NO ACUTE RADIOGRAPHIC FINDING IN THE CHEST. TECHNICAL DOCUMENTATION: JOB ID: [id number] [employer]- All Rights Reserved Reading location - IP/workstation name: [email or web address]
[2017-12-23] MEDS ORDERED: PREDNISONE 20 MG TABLET PO ONE (22:33)
[2017-12-23] MEDS ORDERED: DOXYCYCLINE HYCLATE 100 MG TABLET PO ONE (22:33)
[2017-12-23 22:44] VITALS: BP 119/85
== END 2017-12-23 22:55 | disposition home or self-care (01) ==
LOC: ER 20:41
DX: R06.02 Shortness of breath (principal); R06.00 Dyspnea, unspecified; I10 Essential (primary) hypertension; Z90.710 Acquired absence of both cervix and uterus
CPT/HCPCS: 94640; 99285; 71045; J7512; J7620

== ENCOUNTER 2018-01-08 23:55 | Inpatient (IN) | payer OTHER ==
[2018-01-09] MEDS ORDERED: IPRATROPIUM/ALBUTEROL 0.5-2.5 MG/3 ML AMPUL NEB ONE ×2 (04:07→04:09)
--- NOTE | 2018-01-09 04:41 | ER Document Report ---
ED Medical Screen (RME) - General Chief Complaint: Breathing Difficulty Stated Complaint: SHORTNESS OF BREATH Time Seen by Provider: 01/09/18 04:34 Notes: 62-year-old female with a history of COPD, former smoker stopped 3 months ago, seen by me about 3 weeks ago, and refused additional workup except for chest x- ray and had refused additional treatments except for doxycycline at the time. She admits that she still has difficulty breathing, dyspnea on exertion. Denies fever, passing out. TRAVEL OUTSIDE OF THE [place] IN LAST 30 DAYS: No - Related Data Allergies/Adverse Reactions: No Known Allergies Allergy (Verified 10/12/17 19:10) Past Medical History - Social History Chew tobacco use (# tins/day): No Frequency of alcohol use: None Drug Abuse: None - Past Medical History Cardiac Medical History: Reports: Hx Hypertension Pulmonary Medical History: Reports: Hx Bronchitis Renal/ Medical History: Denies: Hx Peritoneal Dialysis Past Surgical History: Reports: Hx Hysterectomy - Immunizations Hx Diphtheria, Pertussis, Tetanus Vaccination: Yes Physical Exam - Vital signs Vitals: Temp Pulse Resp BP Pulse Ox 97.6 F 109 H 26 H 151/81 H 94 01/09/18 00:01 01/09/18 00:01 01/09/18 00:01 01/09/18 00:01 01/09/18 00:01 - Respiratory Respiratory status: Tachypnea Breath sounds: Decreased air movement, Rales - Left lower lobe. No: Wheezing Course - Re-evaluation Re-evalutation: Patient with tachypnea, states she feels better after treatment she Tho received after initiated protocol before I saw the patient. She has soft rales in the left lower lung. No overt lower extremity swelling. Concerned that patient may have either pulmonary embolism, congestive heart failure, or other underlying abnormality the patient declined workup for previously. She agrees to it today. 01/09/18 04:43 I have greeted and performed a rapid initial assessment of this patient. A comprehensive ED assessment and evaluation of the patient, analysis of test results and completion of the medical decision making process will be conducted by additional ED providers. - Vital Signs Vital signs: Temp Pulse Resp BP Pulse Ox 97.6 F 109 H 29 H 178/102 H 94 01/09/18 00:01 01/09/18 00:01 01/09/18 04:11 01/09/18 04:11 01/09/18 00:01 Doctor's Discharge - Discharge Referrals: DANIAL HALL MD [Primary Care Provider] - Follow up as needed
--- NOTE | 2018-01-09 05:15 | RADIOLOGY REPORT (SQ) ---
EXAM DESCRIPTION: XR CHEST 1 VIEW COMPLETED DATE/TME: 01/09/2018 03:57 CLINICAL HISTORY: sob COMPARISON: 12/23/2017 FINDINGS: Single frontal view of the chest. The cardiomediastinal silhouette has normal size and contour. No consolidation, pneumothorax, or pleural effusion. No displaced rib fractures identified. Upper abdominal soft tissues are unremarkable. IMPRESSION: 1. No acute pulmonary process identified.
[2018-01-09 05:39] LABS: ABSOLUTE EOSINOPHILS # (AUTO) 0.1 10^3/uL (0.0-0.6); ABSOLUTE LYMPHOCYTES (AUTO) 1.2 10^3/uL (0.5-4.7); ABSOLUTE MONOCYTES (AUTO) 0.6 10^3/uL (0.1-1.4); ABSOLUTE NEUT (AUTO) 3.5 10^3/uL (1.7-8.2); BASOPHILS % (AUTO) 0.7 % (0-2); EOSINOPHILS % (AUTO) 2.1 % (0-6); HEMOGLOBIN 13.7 g/dL (12.0-15.5); LYMPHOCYTES % (AUTO) 21.9 % (13-45); MEAN CORPUSCULAR HEMOGLOBIN 33.1 pg (27.0-33.4); MEAN CORPUSCULAR HGB CONC 33.4 g/dL (32.0-36.0); MEAN CORPUSCULAR VOLUME 99 fl (80-97); PLATELET COUNT 213 10^3/uL (150-450); RED BLOOD COUNT 4.14 10^6/uL (3.72-5.28); RED CELL DISTRIBUTION WIDTH 15.6 % (11.5-14.0); SEGMENTED NEUTROPHILS % (AUTO) 64.3 % (42-78); TOTAL CELLS COUNTED % (AUTO) 100 %; WHITE BLOOD COUNT 5.4 10^3/uL (4.0-10.5)
[2018-01-09 05:51] LABS: ALANINE AMINOTRANSFERASE 87 U/L (9-52); ALBUMIN 3.4 g/dL (3.5-5.0); ALKALINE PHOSPHATASE 70 U/L (38-126); ANION GAP 5 (5-19); ASPARTATE AMINO TRANSFERASE 49 U/L (14-36); BILIRUBIN,DIRECT 0.3 mg/dL (0.0-0.4); BILIRUBIN,TOTAL 0.9 mg/dL (0.2-1.3); BLOOD UREA NITROGEN 22 mg/dL (7-20); CALCIUM 9.4 mg/dL (8.4-10.2); CARBON DIOXIDE 33 mmol/L (22-30); CHLORIDE 103 mmol/L (98-107); GLUCOSE 83 mg/dL (75-110); POTASSIUM 4.5 mmol/L (3.6-5.0); TOTAL PROTEIN 6.5 g/dL (6.3-8.2)
[2018-01-09 06:02] LABS: NT PRO BNP 6060 pg/mL (5-900)
[2018-01-09 06:06] LABS: TROPONIN I < 0.012 ng/mL
[2018-01-09] MEDS: ALBUTEROL SULFATE 0.083% NEB 2.5 MG/3 ML AMPUL NEB SCH ×2 (06:09→07:16)
[2018-01-09] MEDS ORDERED: FUROSEMIDE INJ/PF 20 MG/2 ML SDV IV ONE (06:53)
[2018-01-09 07:07] LABS: VENOUS BLOOD BASE EXCESS 6.1 mmol/L; VENOUS BLOOD HCO3 35.7 mmol/L (20-32); VENOUS BLOOD PH 7.28 (7.30-7.42)
--- NOTE | 2018-01-09 07:32 | EKG REPORT ---
SEVERITY:- ABNORMAL ECG - SINUS RHYTHM RIGHT AXIS DEVIATION CONSIDER LEFT VENTRICULAR HYPERTROPHY BORDERLINE T ABNORMALITIES, INFERIOR LEADS : Confirmed by: Neftaly Barrett MD 09-Jan-2018 07:31:34
--- NOTE | 2018-01-09 08:46 | ER Document Report ---
ED Respiratory Problem - General Chief Complaint: Breathing Difficulty Stated Complaint: SHORTNESS OF BREATH Time Seen by Provider: 01/09/18 04:34 Notes: 62-year-old female presents to the ER complaining of shortness of breath and chest discomfort. The patient had stated she has had issues on and off since October but over the last week she has been feeling worse. Patient stated it is worse when she lays flat. She has some chest tightness. She is having trouble breathing. She denies significant calf pain or leg swelling. Denies abdominal pain. Denies fevers chills or sore throat has had a nonproductive cough. TRAVEL OUTSIDE OF THE [place] IN LAST 30 DAYS: No - Related Data Allergies/Adverse Reactions: No Known Allergies Allergy (Verified 10/12/17 19:10) Past Medical History - Social History Smoking Status: Never Smoker Chew tobacco use (# tins/day): No Frequency of alcohol use: None Drug Abuse: None Family History: COPD, DM, Hypertension, Malignancy. denies: Arthritis, CAD, CVA , Hyperlipidemia, Thyroid Disfunction Patient has suicidal ideation: No Patient has homicidal ideation: No - Past Medical History Cardiac Medical History: Reports: Hx Hypertension Pulmonary Medical History: Reports: Hx Bronchitis Renal/ Medical History: Denies: Hx Peritoneal Dialysis Past Surgical History: Reports: Hx Hysterectomy - Immunizations Hx Diphtheria, Pertussis, Tetanus Vaccination: Yes Review of Systems - Review of Systems Constitutional: Diaphoresis. denies: Chills, Fever Cardiovascular: Chest pain, Orthopnea Respiratory: Cough, Short of breath, Wheezing. denies: Hurts to breathe Gastrointestinal: denies: Nausea, Vomiting Genitourinary: denies: Dysuria Neurological/Psychological: denies: Headaches -: Yes All other systems reviewed and negative Physical Exam - Vital signs Vitals: Temp Pulse Resp BP Pulse Ox 97.6 F 109 H 26 H 151/81 H 94 01/09/18 00:01 01/09/18 00:01 01/09/18 00:01 01/09/18 00:01 01/09/18 00:01 - Notes Notes: GENERAL_APPEARANCE: well_nourished, alert, cooperative, for distress VITALS: reviewed, see vital signs table. HEAD: no_swelling\tenderness on the head. EYES: PERRL, EOMI, conjunctiva_clear. NOSE: no_nasal_discharge. MOUTH: (-)decreased moisture. THROAT: no_throat_inflammation, no_airway_obstruction. no_lymphadenopathy NECK: supple, no_neck_tenderness, (-)thyromegaly. BACK: no_back_tenderness. CHEST_WALL: no_chest_tenderness. LUNGS: Scattered_wheezing, basilar_rales, no_rhonchi, mild accessory muscle use , there air exchange bilateral. HEART: normal_rate, normal_rhythm, normal_S1, normal_S2, (-)S3, (-)S4, no_ murmur, no_rub. ABDOMEN: normal_BS, soft, no_abd_tenderness, (-)guarding, (-)rebound, no_ organomegaly, no_abd_masses. EXTREMITIES: strength 5/5 in all_extremities, good pulses in all_extremities, no_swelling\tenderness in the extremities, no_edema. SKIN: warm, dry, good_color, no_rash. MENTAL_STATUS: speech_clear, oriented_X_3, normal_affect, responds_ appropriately to questions. Course - Re-evaluation Re-evalutation: 01/09/18 08:50 8-year-old female with history of COPD presents with diffuse wheezing. She also has some rales on exam. Her BNP is elevated. I gave her a small dose of Lasix she is not on that she has no history of CHF. Patient's PCO2 is elevated but she is likely a retainer with the amount of respiratory distress she had the patient will be admitted to the hospital and observed and continue to have serial aerosol treatments and possibly an echocardiogram a workup for possible new onset CHF. Patient is okay with this plan I spoke with her prior family practice doctor Dr. Hall but she does not see him anymore and I will call the hospitalist service. - Vital Signs Vital signs: Temp Pulse Resp BP Pulse Ox 97.6 F 109 H 23 H 159/97 H 96 01/09/18 00:01 01/09/18 00:01 01/09/18 08:00 01/09/18 07:00 01/09/18 08:00 - Laboratory Result Diagrams: 01/09/18 05:20 01/09/18 05:20 Laboratory results interpreted by me: 01/09/18 01/09/18 01/09/18 05:20 05:20 05:20 MCV 99 H RDW 15.6 H VBG pH VBG pCO2 VBG HCO3 Carbon Dioxide 33 H BUN 22 H Creatinine 1.26 H Est GFR ( Amer) 52 L Est GFR (Non-Af Amer) 43 L AST 49 H ALT 87 H NT-Pro-B Natriuret Pep 6060 H Albumin 3.4 L 01/09/18 06:50 MCV RDW VBG pH 7.28 L VBG pCO2 78.0 H* VBG HCO3 35.7 H Carbon Dioxide BUN Creatinine Est GFR ( Amer) Est GFR (Non-Af Amer) AST ALT NT-Pro-B Natriuret Pep Albumin - Diagnostic Test Radiology reviewed: Image reviewed Radiology results interpreted by me: 01/09/18 08:51 Chest X-Ray 01/09/18 03:57 IMPRESSION: 1. No acute pulmonary process identified. - EKG Interpretation by Me EKG shows normal: Sinus rhythm [place]/QRS: Right axis deviation Voltage: Consistant with LVH When compared to previous EKG there are: No significant change Discharge - Discharge Clinical Impression: COPD exacerbation CHF (congestive heart failure) Qualifiers: Heart failure type: systolic Heart failure chronicity: acute Qualified Code(s) : I50.21 - Acute systolic (congestive) heart failure Disposition: ADMITTED OBSERVATION Admitting Provider: Hospitalist Unit Admitted: Telemetry Referrals: DANIAL HALL MD [Primary Care Provider] - Follow up as needed
[2018-01-09] MEDS ORDERED: ACETAMINOPHEN 325 MG TABLET PO PRN (09:58)
[2018-01-09] MEDS ORDERED: MAGNESIUM HYDROXIDE SUSP 30 ML UDCUP PO PRN (09:58)
[2018-01-09] MEDS: DOCUSATE SODIUM 100 MG CAPSULE PO SCH ×2 (11:57→17:26)
[2018-01-09] MEDS: LANSOPRAZOLE 30 MG TAB.RAP.DR PO SCH (11:59)
[2018-01-09] MEDS: IPRATROPIUM BROMIDE 0.02% NEB 0.5 MG/2.5 ML AMPUL NEB SCH ×3 (12:19→23:48)
[2018-01-09] MEDS: LEVALBUTEROL HCL NEB 1.25 MG/3 ML AMPUL NEB SCH ×3 (12:19→23:48)
[2018-01-09 12:37] LABS: APPEARANCE,URINE CLEAR; BILIRUBIN,URINE NEGATIVE (NEGATIVE); COLOR,URINE STRAW; GLUCOSE, URINE NEGATIVE (NEGATIVE); KETONES,URINE NEGATIVE (NEGATIVE); LEUKOCYTE ESTERASE,URINE NEGATIVE (NEGATIVE); NITRITE,URINE NEGATIVE (NEGATIVE); PROTEIN,URINE NEGATIVE (NEGATIVE); URINE SPECIFIC GRAVITY 1.006; UROBILINOGEN,URINE NEGATIVE mg/dL (<2.0)
[2018-01-09] MEDS: HEPARIN SOD (PORCINE) 5,000 UNIT/ML 1 ML SYRINGE SUBCUT SCH ×2 (15:21→22:25)
[2018-01-09] MEDS: METHYLPREDNISOLONE INJ 40 MG/1 ML SDV IV SCH ×2 (15:22→22:25)
--- NOTE | 2018-01-09 21:19 | PDOC H&P ---
History of Present Illness Admission Date/PCP: 01/09/18 08:52 DANIAL HALL MD Patient complains of: Dyspnea History of Present Illness: CECILE BERRIOS is a 62 year old female who presented to the emergency room with a complaint of progressively worsening dyspnea. She admits that approximately a month or so ago she began having some trouble with dyspnea and was seen in the emergency room here and treated with antibiotic which seemed to help some in her dyspnea did not really get much worse but also did not really improve very much over the course of the next few weeks. Over the last week prior to this admission she has had gradually worsening symptoms to the point where she has developed dyspnea at rest as well as dyspnea with exertion and today she states that her dyspnea is severe. She states that she is not having any wheezing but is having a severely difficult time getting air in, as it feels like her chest is already full and there is no room to get any air inside. She denies cough fever chills episodes of syncope. She has not had prior symptoms this bad but has experienced numerous previous episodes of similar though less severe symptoms. She has not identified any aggravating or ameliorating factors for her dyspnea. She does give a history that she smoked in the past but has not been a smoker for some time and she denies any use of recreational drugs or alcohol. Past Medical History Cardiac Medical History: Reports: Hypertension Pulmonary Medical History: Reports: Bronchitis, Chronic Obstructive Pulmonary Disease (COPD) EENT Medical History: Reports: None Neurological Medical History: Reports: None Renal/ Medical History: Reports: None Malignancy Medical History: Reports: None GI Medical History: Reports: None Musculoskeltal Medical History: Reports: None Skin Medical History: Reports: None Psychiatric Medical History: Reports: None Traumatic Medical History: Reports: None Hematology: Reports: None Infectious Medical History: Reports: None Past Surgical History Past Surgical History: Reports: Hysterectomy Social History Smoking Status: Former Smoker Drugs: None - Advance Directive Resuscitation Status: Full Code Family History Family History: COPD, DM, Hypertension, Malignancy. denies: Arthritis, CAD, CVA , Hyperlipidemia, Thyroid Disfunction Parental Family History Reviewed: Yes Children Family History Reviewed: No Sibling(s) Family History Reviewed.: Yes Medication/Allergy Home Medications: Lisinopril/Hydrochlorothiazide [Lisinopril-Hctz 20-25 mg Tab] 1 each PO DAILY # 30 tablet 12/23/17 Allergies/Adverse Reactions: No Known Allergies Allergy (Verified 10/12/17 19:10) Review of Systems Constitutional: PRESENT: fatigue. ABSENT: chills, fever(s) Eyes: ABSENT: visual disturbances, other - No conjunctival discharge or scleral icterus Ears: ABSENT: hearing changes, other - No vertigo or discharge from the external auditory canals Nose, Mouth, and Throat: ABSENT: headache(s), mouth pain, sore throat Cardiovascular: PRESENT: dyspnea on exertion. ABSENT: chest pain, edema, orthropnea, palpitations Respiratory: PRESENT: dyspnea. ABSENT: cough, hemoptysis Gastrointestinal: ABSENT: abdominal pain, diarrhea, dysphagia, heartburn, melena , nausea, vomiting Genitourinary: ABSENT: dysuria, hematuria Musculoskeletal: ABSENT: deformity, joint swelling Integumentary: ABSENT: diaphoresis, pruritus, rash Neurological: ABSENT: abnormal movements, abnormal speech, confusion, convulsions, memory loss, syncope, tremor(s) Psychiatric: ABSENT: anxiety, depression, hallucinations Endocrine: ABSENT: cold intolerance, heat intolerance, polydipsia, polyphagia, polyuria Hematologic/Lymphatic: ABSENT: easy bleeding, easy bruising Allergic/Immunologic: ABSENT: seasonal rhinorrhea, other - No insect sting allergies Physical Exam Vital Signs: Temp Pulse Resp BP Pulse Ox 99.1 F 99 28 H 177/86 H 92 01/09/18 19:18 01/09/18 19:18 01/09/18 19:18 01/09/18 19:18 01/09/18 19:18 Intake & Output 01/08/18 01/09/18 01/10/18 06:59 06:59 06:59 Output Total 200 Balance -200 Weight 64.098 kg General appearance: PRESENT: cooperative, mild distress, well-developed, well- nourished Head exam: PRESENT: atraumatic, normocephalic Eye exam: PRESENT: conjunctiva pink. ABSENT: nystagmus, scleral icterus Ear exam: PRESENT: normal external ear exam. ABSENT: bleeding, drainage Mouth exam: PRESENT: moist, neck supple, tongue midline Respiratory exam: PRESENT: decreased breath sounds - With poor air movement in all soto, prolonged expiratory phas, symmetrical, wheezes - Very faint end expiratory wheezes Cardiovascular exam: PRESENT: RRR. ABSENT: clicks, diastolic murmur, gallop, rubs, systolic murmur Pulses: PRESENT: normal carotid pulses, normal radial pulses GI/Abdominal exam: PRESENT: normal bowel sounds, soft. ABSENT: distended, tenderness Extremities exam: PRESENT: full ROM. ABSENT: clubbing, joint swelling, pedal edema, tenderness Musculoskeletal exam: PRESENT: full ROM, normal inspection Neurological exam: PRESENT: alert, awake, oriented to person, oriented to place , oriented to time, oriented to situation, CN II-XII grossly intact. ABSENT: motor sensory deficit Psychiatric exam: PRESENT: appropriate affect, normal mood. ABSENT: anxious, depressed Skin exam: ABSENT: jaundice, rash, urticaria Results Laboratory Results: 01/09/18 11:45 Urine Color STRAW Urine Appearance CLEAR Urine pH 5.0 Ur Specific [place] 1.006 Urine Protein NEGATIVE Urine Glucose (UA) NEGATIVE Urine Ketones NEGATIVE Urine Blood NEGATIVE Urine Nitrite NEGATIVE Ur Leukocyte Esterase NEGATIVE Urine WBC (Auto) 0 EKG Comments: Normal sinus rhythm, left ventricular hypertrophy, right axis deviation, nonspecific T-wave changes Impressions: Chest X-Ray 01/09/18 03:57 IMPRESSION: 1. No acute pulmonary process identified. Status: Image reviewed by me Assessment & Plan - Diagnosis (1) Accelerated essential hypertension Is this a current diagnosis for this admission?: Yes Plan: Treat with lisinopril as she was taking at home but add metoprolol and consider using torsemide as a diuretic to control edema of of chf and aid in control of HTN (2) COPD exacerbation Is this a current diagnosis for this admission?: Yes Plan: Treatments and aggressive pulmonary toilet as well as IV steroids and monitor her respiratory improvement very closely. (3) CHF (congestive heart failure) Qualifiers: Heart failure type: diastolic Heart failure chronicity: acute Qualified Code(s): I50.31 - Acute diastolic (congestive) heart failure Is this a current diagnosis for this admission?: Yes Plan: BNP is elevated so will evaluate with a echocardiogram during this hospitalization. No clinical signs of CHF other than dyspnea are present. - Time Time Spent: Greater than 70 Minutes Medications reviewed and adjusted accordingly: Yes Within: within 72 hours
[2018-01-09] MEDS ORDERED: LISINOPRIL 10 MG TABLET PO ONE (22:00)
[2018-01-09] MEDS ORDERED: TORSEMIDE 20 MG TABLET PO ONE (22:00)
[2018-01-09] MEDS: METOPROLOL TARTRATE 25 MG TABLET PO SCH (22:25)
[2018-01-09] MEDS ORDERED: BUDESONIDE NEB 0.5 MG/2 ML AMPUL NEB ONE (22:30)
[2018-01-10] MEDS: IPRATROPIUM BROMIDE 0.02% NEB 0.5 MG/2.5 ML AMPUL NEB SCH ×3 (09:14→23:19)
[2018-01-10] MEDS: BUDESONIDE NEB 0.5 MG/2 ML AMPUL NEB SCH ×2 (09:14→20:57)
[2018-01-10] MEDS: LEVALBUTEROL HCL NEB 1.25 MG/3 ML AMPUL NEB SCH ×3 (09:14→23:19)
[2018-01-10 09:22] LABS: HEMOGLOBIN 14.1 g/dL (12.0-15.5); MEAN CORPUSCULAR HEMOGLOBIN 32.7 pg (27.0-33.4); MEAN CORPUSCULAR HGB CONC 32.8 g/dL (32.0-36.0); MEAN CORPUSCULAR VOLUME 100 fl (80-97); PLATELET COUNT 175 10^3/uL (150-450); RED BLOOD COUNT 4.32 10^6/uL (3.72-5.28); RED CELL DISTRIBUTION WIDTH 15.4 % (11.5-14.0); WHITE BLOOD COUNT 6.1 10^3/uL (4.0-10.5)
[2018-01-10 09:30] LABS: ANION GAP 5 (5-19); BLOOD UREA NITROGEN 30 mg/dL (7-20); CALCIUM 9.5 mg/dL (8.4-10.2); CARBON DIOXIDE 36 mmol/L (22-30); CHLORIDE 99 mmol/L (98-107); CHOLESTEROL 187.06 mg/dL (0-200); DIRECT LDL 98 mg/dL (<100); GLUCOSE 142 mg/dL (75-110); SODIUM 140.1 mmol/L (137-145); TRIGLYCERIDES 59 mg/dL (<150); VLDL CHOLESTEROL 11.8 mg/dL (10-31)
[2018-01-10] MEDS: METHYLPREDNISOLONE INJ 40 MG/1 ML SDV IV SCH ×3 (09:33→22:39)
[2018-01-10] MEDS: HEPARIN SOD (PORCINE) 5,000 UNIT/ML 1 ML SYRINGE SUBCUT SCH ×3 (09:33→22:40)
[2018-01-10] MEDS: LANSOPRAZOLE 30 MG TAB.RAP.DR PO SCH (09:33)
[2018-01-10] MEDS: LISINOPRIL 10 MG TABLET PO SCH (09:39)
[2018-01-10] MEDS: TORSEMIDE 20 MG TABLET PO SCH (09:39)
[2018-01-10] MEDS: DOCUSATE SODIUM 100 MG CAPSULE PO SCH ×2 (09:40→17:05)
[2018-01-10] MEDS: METOPROLOL TARTRATE 25 MG TABLET PO SCH ×2 (09:40→22:40)
--- NOTE | 2018-01-10 19:58 | XCELERA REPORT ---
[address] [address] Transthoracic Echocardiogram Report Name: CECILE BERRIOS Age: 62 yrs Gender: Female : 1955 Patient Status: Inpatient Patient Location: [address] [place] [address] Study Date: 01/10/2018 09:50 AM Procedure: A complete two-dimensional transthoracic echocardiogram was performed (2D, M-mode, spectral and color flow Doppler). The study was technically adequate with some images being suboptimal in quality. Reason For Study: Elevated BNP, severe dyspnea Ordering Physician: LORENA BENITO Performed By: Rossy Saavedra Interpretation Summary The left ventricular ejection fraction is normal. There is mild concentric left ventricular hypertrophy. The left ventricle is grossly normal size. Doppler measurements suggest pseudonormalized left ventricular relaxation, which is associated with grade II/IV or mild to moderate diastolic dysfunction Wall motion cannot be accurately commented on, but no definite regional wall motion abnormalities noted. The right ventricle is moderately dilated. There is moderate right ventricular hypertrophy. The right ventricular systolic function is mild to moderately reduced. Best estimated RVSP is approximately 65 mm/Hg. There is servere pulmonary hypertension by echo The right atrium is moderately dilated. Borderline left atrial enlargement. There is no mitral valve stenosis. There is a trace amount of mitral regurgitation There is no aortic valve stenosis No aortic regurgitation is present. There is a mild amount of tricuspid regurgitation The aortic root is not well visualized but is probably normal size. The inferior vena cava was not well visualized Small pericardial effusion. There are no echocardiographic or Doppler indications for cardiac tamponade MMode/2D Measurements & Calculations RVDd: 4.1 cm LVIDd: 3.9 cm FS: 33.2 % Ao root diam: 2.2 cm IVSd: 1.1 cm LVIDs: 2.6 cm EDV(Teich): 64.5 ml Ao root area: 3.9 cm2 LVPWd: 1.1 cm ESV(Teich): 24.2 ml EF(Teich): 62.5 % Doppler Measurements & Calculations MV E max praveena: MV dec slope: Ao V2 max: LV V1 max P.7 cm/sec 156.1 cm/sec 6.6 mmHg MV A max praveena: 327.9 cm/sec2 Ao max PG: LV V1 max: 84.2 cm/sec MV dec time: 0.19 sec 9.7 mmHg 128.2 cm/sec MV E/A: 0.76 PA V2 max: TR max praveena: 79.5 cm/sec 352.0 cm/sec PA max P.5 mmHgTR max P.6 mmHg Left Ventricle The left ventricle is grossly normal size. There is mild concentric left ventricular hypertrophy. The left ventricular ejection fraction is normal. Doppler measurements suggest pseudonormalized left ventricular relaxation, which is associated with grade II/IV or mild to moderate diastolic dysfunction. Wall motion cannot be accurately commented on, but no definite regional wall motion abnormalities noted. Right Ventricle The right ventricle is moderately dilated. There is moderate right ventricular hypertrophy. The right ventricular systolic function is mild to moderately reduced. Atria The right atrium is moderately dilated. Borderline left atrial enlargement. Interarterial septum not well visualized and not well dopplered. Cannot comment on ASD/PFO presence. Mitral Valve The mitral valve is grossly normal. There is no mitral valve stenosis. There is a trace amount of mitral regurgitation. Aortic Valve The aortic valve is grossly normal. There is no aortic valve stenosis. No aortic regurgitation is present. Tricuspid Valve The tricuspid valve is not well visualized, but is grossly normal. There is no tricuspid stenosis. There is a mild amount of tricuspid regurgitation. There is servere pulmonary hypertension by echo. Best estimated RVSP is approximately 65 mm/Hg. Great Vessels The aortic root is not well visualized but is probably normal size. The inferior vena cava was not well visualized. Effusions Small pericardial effusion. There are no echocardiographic or Doppler indications for cardiac tamponade. : LORENA BENITO > Julieta Baker
--- NOTE | 2018-01-10 20:37 | PDOC PROGRESS REPORT ---
Subjective Progress Note for:: 01/10/18 Subjective:: CECILE BERRIOS is a 62 year old female who presented to the emergency room with a complaint of progressively worsening dyspnea. She admits that approximately a month or so ago she began having some trouble with dyspnea and was seen in the emergency room here and treated with antibiotic which seemed to help some in her dyspnea did not really get much worse but also did not really improve very much over the course of the next few weeks. Over the last week prior to this admission she has had gradually worsening symptoms to the point where she has developed dyspnea at rest as well as dyspnea with exertion and today she states that her dyspnea is severe. She states that she is not having any wheezing but is having a severely difficult time getting air in, as it feels like her chest is already full and there is no room to get any air inside. She denies cough fever chills episodes of syncope. She has not had prior symptoms this bad but has experienced numerous previous episodes of similar though less severe symptoms. She has not identified any aggravating or ameliorating factors for her dyspnea. She does give a history that she smoked in the past but has not been a smoker for some time and she denies any use of recreational drugs or alcohol. 01/10/18: Cecile states that she feels like she is breathing better today is able to tolerate some light activity without significant dyspnea. She has noticed that she is beginning to make some wheezing sounds when she breathes but states that she overall feels much improved. She has not had any significant cough, hemoptysis, chest pain, palpitations or syncope. Reason For Visit: ACUTE EXACERBATION OF CHRONIC OBSTRUCTIVE Physical Exam Vital Signs: Temp Pulse Resp BP Pulse Ox 98.6 F 79 14 116/69 78 L 01/10/18 19:11 01/10/18 19:11 01/10/18 19:11 01/10/18 19:11 01/10/18 19:11 Intake & Output 01/09/18 01/10/18 01/11/18 06:59 06:59 06:59 Intake Total 220 Output Total 1700 Balance -1480 Weight 63.2 kg General appearance: PRESENT: no acute distress, cooperative Head exam: PRESENT: atraumatic, normocephalic Eye exam: PRESENT: conjunctiva pink. ABSENT: nystagmus, scleral icterus Ear exam: PRESENT: normal external ear exam. ABSENT: drainage Mouth exam: PRESENT: neck supple, tongue midline Neck exam: PRESENT: full ROM. ABSENT: thyromegaly, tracheal deviation Respiratory exam: PRESENT: decreased breath sounds, prolonged expiratory phas, symmetrical, wheezes. ABSENT: rales, retraction, rhonchi Cardiovascular exam: PRESENT: RRR. ABSENT: clicks, diastolic murmur, gallop, rubs, systolic murmur Pulses: PRESENT: normal carotid pulses, normal radial pulses, normal dorsalis pedis pul Vascular exam: PRESENT: normal capillary refill. ABSENT: pallor GI/Abdominal exam: PRESENT: normal bowel sounds, soft. ABSENT: distended, tenderness Extremities exam: ABSENT: joint swelling, pedal edema Musculoskeletal exam: PRESENT: full ROM, normal inspection Neurological exam: PRESENT: alert, altered, oriented to person, oriented to place, oriented to time, oriented to situation, CN II-XII grossly intact. ABSENT: motor sensory deficit Psychiatric exam: PRESENT: appropriate affect, normal mood Skin exam: ABSENT: jaundice, rash, urticaria Results Laboratory Results: 01/10/18 05:10 01/10/18 05:10 01/10/18 01/10/18 01/10/18 05:10 05:10 05:10 WBC 6.1 RBC 4.32 Hgb 14.1 Hct 43.0 MCV 100 H MCH 32.7 MCHC 32.8 RDW 15.4 H Plt Count 175 Sodium 140.1 Potassium 5.0 Chloride 99 Carbon Dioxide 36 H Anion Gap 5 BUN 30 H Creatinine 1.38 H Est GFR ( Amer) 47 L Est GFR (Non-Af Amer) 39 L Glucose 142 H Calcium 9.5 Magnesium 1.8 Triglycerides 59 Cholesterol 187.06 LDL Cholesterol Direct 98 VLDL Cholesterol 11.8 HDL Cholesterol 63 TSH 0.29 L Impressions: Chest X-Ray 01/09/18 03:57 IMPRESSION: 1. No acute pulmonary process identified. Assessment & Plan - Diagnosis (1) Accelerated essential hypertension Is this a current diagnosis for this admission?: Yes Plan: Continue lisinopril, metoprolol and torsemide in control of HTN (2) COPD exacerbation Is this a current diagnosis for this admission?: Yes Plan: Continue the aggressive pulmonary toilet as well as IV steroids and monitor her respiratory improvement very closely. (3) CHF (congestive heart failure) Qualifiers: Heart failure type: diastolic Heart failure chronicity: acute Qualified Code(s): I50.31 - Acute diastolic (congestive) heart failure Is this a current diagnosis for this admission?: Yes Plan: Echocardiogram shows mild to moderate diastolic dysfunction. Is on appropriate medications for treatment of this degree of congestive heart failure. Spironolactone will be added today. - Time Time Spent with patient: 35 or more minutes Medications reviewed and adjusted accordingly: Yes Within: within 72 hours
[2018-01-10] MEDS: ALBUTEROL SULFATE 0.083% NEB 2.5 MG/3 ML AMPUL NEB PRN (20:57)
[2018-01-11] MEDS: HEPARIN SOD (PORCINE) 5,000 UNIT/ML 1 ML SYRINGE SUBCUT SCH ×3 (05:31→21:06)
[2018-01-11] MEDS: METHYLPREDNISOLONE INJ 40 MG/1 ML SDV IV SCH ×3 (05:31→21:07)
[2018-01-11] MEDS: LANSOPRAZOLE 30 MG TAB.RAP.DR PO SCH (05:39)
[2018-01-11] MEDS: IPRATROPIUM BROMIDE 0.02% NEB 0.5 MG/2.5 ML AMPUL NEB SCH ×2 (08:46→15:33)
[2018-01-11] MEDS: BUDESONIDE NEB 0.5 MG/2 ML AMPUL NEB SCH ×2 (08:46→19:31)
[2018-01-11] MEDS: LEVALBUTEROL HCL NEB 1.25 MG/3 ML AMPUL NEB SCH ×2 (08:46→15:33)
[2018-01-11] MEDS: DOCUSATE SODIUM 100 MG CAPSULE PO SCH ×3 (09:01→17:44)
[2018-01-11] MEDS: LISINOPRIL 10 MG TABLET PO SCH (09:07)
[2018-01-11] MEDS: METOPROLOL TARTRATE 25 MG TABLET PO SCH ×2 (09:08→21:06)
[2018-01-11] MEDS: TORSEMIDE 20 MG TABLET PO SCH (09:08)
[2018-01-11] MEDS ORDERED: SPIRONOLACTONE 25 MG TABLET PO SCH (10:00)
[2018-01-11] MEDS: ALBUTEROL SULFATE 0.083% NEB 2.5 MG/3 ML AMPUL NEB PRN (19:30)
[2018-01-12] MEDS: LEVALBUTEROL HCL NEB 1.25 MG/3 ML AMPUL NEB SCH ×4 (00:38→23:42)
[2018-01-12] MEDS: IPRATROPIUM BROMIDE 0.02% NEB 0.5 MG/2.5 ML AMPUL NEB SCH ×4 (00:38→23:42)
--- NOTE | 2018-01-12 00:55 | PDOC PROGRESS REPORT ---
Subjective Progress Note for:: 01/11/18 Subjective:: CECILE BERRIOS is a 62 year old female who presented to the emergency room with a complaint of progressively worsening dyspnea. She admits that approximately a month or so ago she began having some trouble with dyspnea and was seen in the emergency room here and treated with antibiotic which seemed to help some in her dyspnea did not really get much worse but also did not really improve very much over the course of the next few weeks. Over the last week prior to this admission she has had gradually worsening symptoms to the point where she has developed dyspnea at rest as well as dyspnea with exertion and today she states that her dyspnea is severe. She states that she is not having any wheezing but is having a severely difficult time getting air in, as it feels like her chest is already full and there is no room to get any air inside. She denies cough fever chills episodes of syncope. She has not had prior symptoms this bad but has experienced numerous previous episodes of similar though less severe symptoms. She has not identified any aggravating or ameliorating factors for her dyspnea. She does give a history that she smoked in the past but has not been a smoker for some time and she denies any use of recreational drugs or alcohol. 01/10/18: Cecile states that she feels like she is breathing better today is able to tolerate some light activity without significant dyspnea. She has noticed that she is beginning to make some wheezing sounds when she breathes but states that she overall feels much improved. She has not had any significant cough, hemoptysis, chest pain, palpitations or syncope. 01/11/18: Cecile is agian breathing very well. She is tolerating significant in room activity well. She speaks in full sentences and appears very comfortable. She denies pain and her wheezing is improved as is her air hunger sensation. Reason For Visit: ACUTE EXACERBATION OF CHRONIC OBSTRUCTIVE Physical Exam Vital Signs: Temp Pulse Resp BP Pulse Ox 98.5 F 82 17 95/68 L 95 01/11/18 23:28 01/11/18 23:28 01/11/18 23:28 01/11/18 23:28 01/11/18 23:28 Intake & Output 01/10/18 01/11/18 01/12/18 06:59 06:59 06:59 Intake Total 384 Output Total 1500 Balance -1116 General appearance: PRESENT: no acute distress, cooperative Head exam: PRESENT: atraumatic, normocephalic Eye exam: PRESENT: conjunctiva pink. ABSENT: scleral icterus Ear exam: PRESENT: normal external ear exam. ABSENT: drainage Mouth exam: PRESENT: neck supple, tongue midline Neck exam: ABSENT: thyromegaly, tracheal deviation Respiratory exam: PRESENT: decreased breath sounds - moving air fairly well, prolonged expiratory phas, symmetrical, unlabored - still fairly shallow breathing noted, wheezes - end expiratory. ABSENT: rales, rhonchi, stridor, tachypnea Cardiovascular exam: PRESENT: RRR. ABSENT: clicks, gallop, rubs Pulses: PRESENT: normal radial pulses, normal dorsalis pedis pul Vascular exam: PRESENT: normal capillary refill. ABSENT: pallor GI/Abdominal exam: PRESENT: normal bowel sounds, soft. ABSENT: tenderness Extremities exam: ABSENT: joint swelling, pedal edema Musculoskeletal exam: PRESENT: full ROM, normal inspection Neurological exam: PRESENT: alert, awake, oriented to person, oriented to place , oriented to time, oriented to situation, CN II-XII grossly intact. ABSENT: motor sensory deficit Psychiatric exam: PRESENT: appropriate affect, normal mood Skin exam: ABSENT: jaundice, rash, urticaria Results Impressions: Chest X-Ray 01/09/18 03:57 IMPRESSION: 1. No acute pulmonary process identified. Assessment & Plan - Diagnosis (1) Accelerated essential hypertension Is this a current diagnosis for this admission?: Yes Plan: Continue lisinopril, metoprolol and torsemide in control of HTN (2) COPD exacerbation Is this a current diagnosis for this admission?: Yes Plan: Continue the aggressive pulmonary toilet as well as IV steroids and monitor her respiratory improvement very closely. Oral steroid tomorrow if continues to improve. (3) CHF (congestive heart failure) Qualifiers: Heart failure type: diastolic Heart failure chronicity: acute Qualified Code(s): I50.31 - Acute diastolic (congestive) heart failure Is this a current diagnosis for this admission?: Yes Plan: Echocardiogram shows mild to moderate diastolic dysfunction. Is on appropriate medications for treatment of this degree of congestive heart failure. Spironolactone will be added today. - Time Time Spent with patient: 25-34 minutes Medications reviewed and adjusted accordingly: Yes Anticipated discharge: Home Within: within 72 hours
[2018-01-12] MEDS: METHYLPREDNISOLONE INJ 40 MG/1 ML SDV IV SCH ×2 (05:23→13:37)
[2018-01-12] MEDS: HEPARIN SOD (PORCINE) 5,000 UNIT/ML 1 ML SYRINGE SUBCUT SCH ×3 (05:23→22:00)
[2018-01-12] MEDS: LANSOPRAZOLE 30 MG TAB.RAP.DR PO SCH (05:24)
[2018-01-12] MEDS: BUDESONIDE NEB 0.5 MG/2 ML AMPUL NEB SCH ×2 (08:10→20:56)
[2018-01-12] MEDS: SPIRONOLACTONE 25 MG TABLET PO SCH (10:36)
[2018-01-12] MEDS: LOSARTAN POTASSIUM 50 MG TABLET PO SCH (10:36)
[2018-01-12] MEDS: DOCUSATE SODIUM 100 MG CAPSULE PO SCH ×2 (10:36→17:15)
[2018-01-12] MEDS: TORSEMIDE 20 MG TABLET PO SCH (10:37)
[2018-01-12] MEDS: METOPROLOL SUCCINATE 50 MG TAB.SR.24H PO SCH (10:37)
[2018-01-12] MEDS ORDERED: PREDNISONE 20 MG TABLET PO ONE (15:22)
--- NOTE | 2018-01-12 15:22 | PDOC PROGRESS REPORT ---
Subjective Progress Note for:: 01/12/18 Subjective:: CECILE BERRIOS is a 62 year old female who presented to the emergency room with a complaint of progressively worsening dyspnea. She admits that approximately a month or so ago she began having some trouble with dyspnea and was seen in the emergency room here and treated with antibiotic which seemed to help some in her dyspnea did not really get much worse but also did not really improve very much over the course of the next few weeks. Over the last week prior to this admission she has had gradually worsening symptoms to the point where she has developed dyspnea at rest as well as dyspnea with exertion and today she states that her dyspnea is severe. She states that she is not having any wheezing but is having a severely difficult time getting air in, as it feels like her chest is already full and there is no room to get any air inside. She denies cough fever chills episodes of syncope. She has not had prior symptoms this bad but has experienced numerous previous episodes of similar though less severe symptoms. She has not identified any aggravating or ameliorating factors for her dyspnea. She does give a history that she smoked in the past but has not been a smoker for some time and she denies any use of recreational drugs or alcohol. 01/10/18: Cecile states that she feels like she is breathing better today is able to tolerate some light activity without significant dyspnea. She has noticed that she is beginning to make some wheezing sounds when she breathes but states that she overall feels much improved. She has not had any significant cough, hemoptysis, chest pain, palpitations or syncope. 01/11/18: Cecile is again breathing very well. She is tolerating significant in room activity well. She speaks in full sentences and appears very comfortable. She denies pain and her wheezing is improved as is her air hunger sensation. 01/12/18: Cecile states she is feeling improved even more today. She is able to be up and active in her room without any dyspnea, she has not been using oxygen with a good tolerance for activity on room air. She feels that her wheezing has improved considerably and she continues to be free of cough, hemoptysis, chest pain, palpitations and syncope. I spoke with her and her sister who joined our conversation on the telephone today at length about Cecile's treatment and her discharge within the next 24-48 hours. Reason For Visit: ACUTE EXACERBATION OF COPD Physical Exam Vital Signs: Temp Pulse Resp BP Pulse Ox 98.4 F 80 20 134/78 H 100 01/12/18 11:25 01/12/18 11:25 01/12/18 11:25 01/12/18 11:25 01/12/18 11:25 Intake & Output 01/11/18 01/12/18 01/13/18 06:59 06:59 06:59 Intake Total 384 Output Total 1500 Balance -1116 Weight 64.1 kg General appearance: PRESENT: no acute distress, cooperative Head exam: PRESENT: atraumatic, normocephalic Eye exam: PRESENT: conjunctiva pink. ABSENT: conjunctival injection Ear exam: PRESENT: normal external ear exam. ABSENT: drainage Mouth exam: PRESENT: moist, neck supple Neck exam: ABSENT: thyromegaly, tracheal deviation Respiratory exam: PRESENT: prolonged expiratory phas, symmetrical, unlabored, wheezes, other - Good air movement in all soto. Minimal end expiratory wheezes are noted. Cardiovascular exam: PRESENT: RRR. ABSENT: clicks, gallop, rubs Vascular exam: PRESENT: normal capillary refill. ABSENT: pallor GI/Abdominal exam: PRESENT: normal bowel sounds, soft Extremities exam: ABSENT: joint swelling, pedal edema, tenderness Musculoskeletal exam: PRESENT: full ROM, normal inspection Neurological exam: PRESENT: alert, awake, oriented to person, oriented to place , oriented to time, oriented to situation, CN II-XII grossly intact. ABSENT: motor sensory deficit Psychiatric exam: PRESENT: appropriate affect, normal mood Skin exam: ABSENT: jaundice, rash, urticaria Results Impressions: Chest X-Ray 01/09/18 03:57 IMPRESSION: 1. No acute pulmonary process identified. Assessment & Plan - Diagnosis (1) Accelerated essential hypertension Is this a current diagnosis for this admission?: Yes Plan: Increase metoprolol XL to 100 mg p.o. daily reduce torsemide to 5 mg p.o. daily reduce Spironolactone to 12.5 mg p.o. daily and discontinue lisinopril. Continue Norvasc 10 mg p.o. daily (2) COPD exacerbation Is this a current diagnosis for this admission?: Yes Plan: Continue pulmonary toilet at a level which she may continue to use at home as and twice daily dosing of Pulmicort and 3 times per day as needed utilization of Xopenex and Atrovent. Discontinue IV steroids and start oral prednisone at 40 mg daily. Plan discharge for tomorrow if her progress continues and she remains stable. (3) CHF (congestive heart failure) Qualifiers: Heart failure type: diastolic Heart failure chronicity: acute Qualified Code(s): I50.31 - Acute diastolic (congestive) heart failure Is this a current diagnosis for this admission?: Yes Plan: Echocardiogram shows mild to moderate diastolic dysfunction. Though she does not have any clinical signs of congestive heart failure, her hypertension needs to be treated and utilizing metoprolol XL as well as Spironolactone in the treatment protocol is certainly warranted. Additionally she is taking Norvasc and torsemide which helped to control her hypertension. - Time Time Spent with patient: 35 or more minutes Medications reviewed and adjusted accordingly: Yes - While he was Anticipated discharge: Home Within: within 24 hours
[2018-01-12 17:19] LABS: HEMATOCRIT 45.1 % (36.0-47.0); HEMOGLOBIN 14.9 g/dL (12.0-15.5); MEAN CORPUSCULAR HEMOGLOBIN 32.9 pg (27.0-33.4); MEAN CORPUSCULAR VOLUME 100 fl (80-97); PLATELET COUNT 256 10^3/uL (150-450); RED BLOOD COUNT 4.53 10^6/uL (3.72-5.28); RED CELL DISTRIBUTION WIDTH 15.5 % (11.5-14.0); WHITE BLOOD COUNT 9.9 10^3/uL (4.0-10.5)
[2018-01-12 17:27] LABS: ANION GAP 6 (5-19); BLOOD UREA NITROGEN 43 mg/dL (7-20); CARBON DIOXIDE 35 mmol/L (22-30); CHLORIDE 98 mmol/L (98-107); GLUCOSE 122 mg/dL (75-110); POTASSIUM 4.1 mmol/L (3.6-5.0); SODIUM 139.1 mmol/L (137-145)
[2018-01-13] MEDS: HEPARIN SOD (PORCINE) 5,000 UNIT/ML 1 ML SYRINGE SUBCUT SCH ×2 (05:09→13:36)
[2018-01-13] MEDS: LANSOPRAZOLE 30 MG TAB.RAP.DR PO SCH (05:10)
[2018-01-13] MEDS: BUDESONIDE NEB 0.5 MG/2 ML AMPUL NEB SCH (07:57)
[2018-01-13] MEDS: IPRATROPIUM BROMIDE 0.02% NEB 0.5 MG/2.5 ML AMPUL NEB SCH ×2 (07:58→15:37)
[2018-01-13] MEDS: LEVALBUTEROL HCL NEB 1.25 MG/3 ML AMPUL NEB SCH ×2 (07:58→15:37)
[2018-01-13] MEDS ORDERED: PREDNISONE 20 MG TABLET PO SCH (08:00)
[2018-01-13] MEDS: SPIRONOLACTONE 25 MG TABLET PO SCH (10:04)
[2018-01-13] MEDS: LOSARTAN POTASSIUM 50 MG TABLET PO SCH (10:04)
[2018-01-13] MEDS: METOPROLOL SUCCINATE 50 MG TAB.SR.24H PO SCH (10:04)
[2018-01-13] MEDS: TORSEMIDE 20 MG TABLET PO SCH (10:04)
[2018-01-13] MEDS: DOCUSATE SODIUM 100 MG CAPSULE PO SCH ×2 (10:04→17:00)
[2018-01-13 11:01] LABS: MEAN CORPUSCULAR HEMOGLOBIN 32.1 pg (27.0-33.4); MEAN CORPUSCULAR HGB CONC 32.6 g/dL (32.0-36.0); MEAN CORPUSCULAR VOLUME 99 fl (80-97); PLATELET COUNT 218 10^3/uL (150-450); RED BLOOD COUNT 4.67 10^6/uL (3.72-5.28); RED CELL DISTRIBUTION WIDTH 15.8 % (11.5-14.0); WHITE BLOOD COUNT 12.2 10^3/uL (4.0-10.5)
[2018-01-13 11:20] LABS: ANION GAP 6 (5-19); BLOOD UREA NITROGEN 45 mg/dL (7-20); CALCIUM 8.9 mg/dL (8.4-10.2); CARBON DIOXIDE 32 mmol/L (22-30); CHLORIDE 100 mmol/L (98-107); GLUCOSE 135 mg/dL (75-110); POTASSIUM 3.9 mmol/L (3.6-5.0); SODIUM 137.6 mmol/L (137-145)
[2018-01-13 11:38] LABS: FREE T3 1.85 pg/mL (2.77-5.27); FREE T4 (FREE THYROXINE) 0.7 ng/dL (0.78-2.19)
--- NOTE | 2018-01-13 16:46 | PDOC DISCHARGE SUMMARY ---
General - Admit/Disc Date/PCP Admission Date/Primary Care Provider: 01/11/18 16:16 Discharge Date: 01/13/18 - Discharge Diagnosis (1) Accelerated essential hypertension Is this a current diagnosis for this admission?: Yes Summary: Her hypertension responded well to treatment with oral agents and has been reasonably well-controlled utilizing metoprolol and losartan. She will be discharged with her hospital antihypertensive regimen. (2) COPD exacerbation Is this a current diagnosis for this admission?: Yes Summary: Her COPD responded very well to aggressive pulmonary toilet and IV steroids. She is going to be discharged home with home oxygen at 2 L/min per nasal cannula while active. She does not require oxygen support when she is at rest. (3) CHF (congestive heart failure) Is this a current diagnosis for this admission?: Yes Summary: Patient is noted to have chronic diastolic congestive heart failure [place] [employer] class II on her echocardiogram and clinical evaluation. Her medications have been selected to treat her hypertension and her congestive heart failure time currently. She was not started on a statin therapy as her serum lipid panel did not indicate the need for statin at this time however one could be added later when she is seen in follow-up with her primary care provider. - Additional Information Resuscitation Status: Full Code Discharge Diet: Cardiac Discharge Activity: Activity As Tolerated, Balance Activity w/Rest, Energy Conservation, Weigh Daily Prescriptions: Ipratropium Ethel [Atrovent 0.02% Neb 0.5 mg/2.5 ml Ampul] 0.5 mg NEB TID 30 Days #90 vial.neb Levalbuterol HCl [Xopenex Neb 1.25 mg/3 ml Ampul] 1.25 mg NEB TID 30 Days #90 vial.neb Losartan Potassium 100 mg PO DAILY 30 Days #30 tablet Metoprolol Succinate 100 mg PO DAILY 30 Days #30 tab.er.24h Spironolactone [Aldactone 25 mg Tablet] 12.5 mg PO DAILY 30 Days #15 tablet Home Medications: Ipratropium Ethel [Atrovent 0.02% Neb 0.5 mg/2.5 ml Ampul] 0.5 mg NEB TID 30 Days #90 vial.neb 01/13/18 Levalbuterol HCl [Xopenex Neb 1.25 mg/3 ml Ampul] 1.25 mg NEB TID 30 Days #90 vial.neb 01/13/18 Losartan Potassium 100 mg PO DAILY 30 Days #30 tablet 01/13/18 Losartan Potassium [Cozaar 50 mg Tablet] 100 mg PO DAILY tablet 01/13/18 Metoprolol Succinate 100 mg PO DAILY 30 Days #30 tab.er.24h 01/13/18 Metoprolol Succinate [Toprol Xl 50 mg Tab.sr] 100 mg PO DAILY tab.sr.24h Spironolactone [Aldactone 25 mg Tablet] 12.5 mg PO DAILY 30 Days #15 tablet 01/22 History of Present Illness Patient complains of: Dyspnea History of Present Illness: CECILE BERRIOS is a 62 year old female who presented to the emergency room with a complaint of progressively worsening dyspnea. She admits that approximately a month or so ago she began having some trouble with dyspnea and was seen in the emergency room here and treated with antibiotic which seemed to help some in her dyspnea did not really get much worse but also did not really improve very much over the course of the next few weeks. Over the last week prior to this admission she has had gradually worsening symptoms to the point where she has developed dyspnea at rest as well as dyspnea with exertion and today she states that her dyspnea is severe. She states that she is not having any wheezing but is having a severely difficult time getting air in, as it feels like her chest is already full and there is no room to get any air inside. She denies cough fever chills episodes of syncope. She has not had prior symptoms this bad but has experienced numerous previous episodes of similar though less severe symptoms. She has not identified any aggravating or ameliorating factors for her dyspnea. She does give a history that she smoked in the past but has not been a smoker for some time and she denies any use of recreational drugs or alcohol. Hospital Course Hospital Course: Cecile was admitted and treated with the usual combination of IV Solu-Medrol and and aggressive pulmonary toilet with nebulizer therapy consisting of the budesonide twice daily levalbuterol 3 times daily and ipratropium 3 times daily. She will nebulizer therapy with albuterol was also employed on an as- needed basis. 01/10/18: Cecile states that she feels like she is breathing better today is able to tolerate some light activity without significant dyspnea. She has noticed that she is beginning to make some wheezing sounds when she breathes but states that she overall feels much improved. She has not had any significant cough, hemoptysis, chest pain, palpitations or syncope. 01/11/18: Cecile is again breathing very well. She is tolerating significant in room activity well. She speaks in full sentences and appears very comfortable. She denies pain and her wheezing is improved as is her air hunger sensation. 01/12/18: Cecile states she is feeling improved even more today. She is able to be up and active in her room without any dyspnea, she has not been using oxygen with a good tolerance for activity on room air. She feels that her wheezing has improved considerably and she continues to be free of cough, hemoptysis, chest pain, palpitations and syncope. I spoke with her and her sister who joined our conversation on the telephone today at length about Cecile's treatment and her discharge within the next 24-48 hours. 01/13/18: Cecile is again doing quite well today she has been up and reasonably active for short distances in her room. When she is walking she becomes somewhat dyspneic and a oxygen trial study was done in which she required a minimum of 2 L of oxygen per nasal cannula on either a continuous or pulse basis in order to contain an oxygen saturation of greater than 92% with normal daily activities. She will be discharged home with home O2 for use when she is being active. Her oxygen saturation is greater than 93% on room air when she is at rest. She denies nausea, vomiting, diarrhea, fever, chills or cough. She is excited about getting back home. Physical Exam Vital Signs: Temp Pulse Resp BP Pulse Ox 98.3 F 74 18 116/51 L 79 L 01/13/18 12:00 01/13/18 15:37 01/13/18 15:37 01/13/18 12:00 01/13/18 15:37 Intake & Output 01/12/18 01/13/18 01/14/18 06:59 06:59 06:59 Intake Total 384 1475 Output Total 1500 Balance -1116 1475 Weight 64.1 kg 64.1 kg General appearance: PRESENT: no acute distress, cooperative Head exam: PRESENT: atraumatic, normocephalic Eye exam: PRESENT: conjunctiva pink. ABSENT: conjunctival injection Ear exam: PRESENT: normal external ear exam. ABSENT: drainage Mouth exam: PRESENT: moist, neck supple Neck exam: ABSENT: thyromegaly, tracheal deviation Respiratory exam: PRESENT: prolonged expiratory phas - Minimally prolonged, symmetrical, unlabored, wheezes - Minimal end expiratory wheezing, other - Good air movement in all soto.. ABSENT: crackles, rales, rhonchi Cardiovascular exam: PRESENT: RRR. ABSENT: clicks, gallop, rubs Vascular exam: PRESENT: normal capillary refill. ABSENT: pallor GI/Abdominal exam: PRESENT: normal bowel sounds, soft - [id number] Extremities exam: ABSENT: joint swelling, pedal edema Musculoskeletal exam: PRESENT: full ROM, normal inspection Neurological exam: PRESENT: alert, awake, oriented to person, oriented to place , oriented to time, oriented to situation, CN II-XII grossly intact. ABSENT: motor sensory deficit Psychiatric exam: PRESENT: appropriate affect, normal mood Skin exam: ABSENT: jaundice, rash, urticaria Results Laboratory Results: 01/13/18 10:49 01/13/18 10:49 01/12/18 01/12/18 01/13/18 17:00 17:00 10:49 WBC 9.9 12.2 H RBC 4.53 4.67 Hgb 14.9 15.0 Hct 45.1 46.0 MCV 100 H 99 H MCH 32.9 32.1 MCHC 33.0 32.6 RDW 15.5 H 15.8 H Plt Count 256 218 Sodium 139.1 Potassium 4.1 Chloride 98 Carbon Dioxide 35 H Anion Gap 6 BUN 43 H Creatinine 1.56 H Est GFR ( Amer) 41 L Est GFR (Non-Af Amer) 34 L Glucose 122 H Calcium 9.0 Magnesium 1.9 Free T4 Free T3 pg/mL 01/13/18 01/13/18 10:49 10:49 WBC RBC Hgb Hct MCV MCH MCHC RDW Plt Count Sodium 137.6 Potassium 3.9 Chloride 100 Carbon Dioxide 32 H Anion Gap 6 BUN 45 H Creatinine 1.52 H Est GFR ( Amer) 42 L Est GFR (Non-Af Amer) 35 L Glucose 135 H Calcium 8.9 Magnesium 1.8 Free T4 0.70 L Free T3 pg/mL 1.85 L EKG Comments: Normal sinus rhythm at 89 with right axis deviation and left ventricular hypertrophy noted. Impressions: Chest X-Ray 01/09/18 03:57 IMPRESSION: 1. No acute pulmonary process identified. Qualifiers - * PATIENT BEING DISCHARGED WITH ANY OF THE FOLLOWING DIAGNOSIS: No Plan Discharge Plan: Discharge to home with home health in improved and stable condition. Time Spent: Greater than 30 Minutes
[2018-01-13 16:54] VITALS: BP 100/66
== END 2018-01-13 17:15 | disposition home health service (06) | DRG 292 ==
LOC: ER 23:55 → EH 01-09 08:52 → 4N 01-09 14:19 → OBSVTOIN 01-11 16:16
PROVIDERS: ADMIT Internal Medicine; ATTEND Internal Medicine
DX: I11.0 Hypertensive heart disease with heart failure (principal); J44.1 Chronic obstructive pulmonary disease with (acute) exacerbation; I50.33 Acute on chronic diastolic (congestive) heart failure; Z90.710 Acquired absence of both cervix and uterus; Z87.891 Personal history of nicotine dependence; Z79.899 Other long term (current) drug therapy; Z83.3 Family history of diabetes mellitus; Z82.49 Family history of ischemic heart disease and other diseases of the circulatory system; Z99.81 Dependence on supplemental oxygen
CPT/HCPCS: 36415; 71045; 80048; 80053; 80061; 81001; 82803; 83036; 83735; 83880; 84439; 84443; 84481; 84484; 85025; 85027; 85379; 93005; 93010; 93306; 94640; 96374; 99285; G0378; J1644; J1940; J2920; J3490; J7512; J7620

== ENCOUNTER 2018-01-18 18:23 | Emergency (ER) | payer OTHER ==
[2018-01-18] MEDS ORDERED: ALBUTEROL SULFATE 0.083% NEB 2.5 MG/3 ML AMPUL NEB ONE (18:40)
[2018-01-18] MEDS ORDERED: ASPIRIN 81 MG TABLET, CHEWABLE PO ONE (18:40)
[2018-01-18] MEDS ORDERED: METHYLPREDNISOLONE INJ 125 MG/2 ML SDV IV ONE (18:40)
--- NOTE | 2018-01-18 18:52 | ER Document Report ---
ED Medical Screen (RME) - General Chief Complaint: Shortness Of Breath Stated Complaint: SHORTNESS OF BREATH Time Seen by Provider: 01/18/18 18:37 Notes: 62-year-old female with history of COPD who states that she missed 2 of her breathing treatments overnight because she was out of power. Presents emergency department complaining of shortness of breath, states she was seen earlier today around 1 PM given a breathing treatment and felt slightly better but now feels worse again. No real fevers, sweats or chills, no real cough, no chest pain. Not currently taking any steroids. TRAVEL OUTSIDE OF THE [place] IN LAST 30 DAYS: No - Related Data Allergies/Adverse Reactions: No Known Allergies Allergy (Verified 01/18/18 18:24) Past Medical History - General Information source: Patient - Social History Chew tobacco use (# tins/day): No Frequency of alcohol use: None Drug Abuse: None - Past Medical History Cardiac Medical History: Reports: Hx Hypertension Pulmonary Medical History: Reports: Hx Bronchitis, Hx COPD Renal/ Medical History: Denies: Hx Peritoneal Dialysis Past Surgical History: Reports: Hx Hysterectomy - Immunizations Hx Diphtheria, Pertussis, Tetanus Vaccination: Yes History of Influenza Vaccine for 02/2017 - 07/2017 Season: Yes Influenza Administration Date for 02/2017 - 07/2017 Season: 02/04/18 Review of Systems - Review of Systems Constitutional: No symptoms reported Cardiovascular: No symptoms reported Respiratory: See HPI, Short of breath Physical Exam - Vital signs Vitals: Temp Pulse Resp BP Pulse Ox 97.5 F 79 20 126/74 H 89 L 01/18/18 18:29 01/18/18 18:29 01/18/18 18:29 01/18/18 18:29 01/18/18 18:29 Interpretation: Hypoxic - Notes Notes: General-appear short of breath, sitting up right, shoulders raised, speaking in 2-3 word sentences. Respiratory-very tight, poor air movement, cannot hear any wheezing as she is breathing poorly. Course - Vital Signs Vital signs: Temp Pulse Resp BP Pulse Ox 97.5 F 79 20 126/74 H 89 L 01/18/18 18:29 01/18/18 18:29 01/18/18 18:29 01/18/18 18:29 01/18/18 18:29
--- NOTE | 2018-01-18 19:04 | RADIOLOGY REPORT (SQ) ---
EXAM DESCRIPTION: CHEST SINGLE VIEW COMPLETED DATE/TIME: 01/18/2018 6:50 pm REASON FOR STUDY: SOB, hypoxia COMPARISON: Chest films 01/09/2018, 12/18/2017 EXAM PARAMETERS: NUMBER OF VIEWS: One view. TECHNIQUE: Single frontal radiographic view of the chest acquired. RADIATION DOSE: NA LIMITATIONS: None. FINDINGS: LUNGS AND PLEURA: Upper lobes are hyperinflated. No opacities, masses or pneumothorax. N o pleural effusion. MEDIASTINUM AND HILAR STRUCTURES: No masses. Contour normal. HEART AND VASCULAR STRUCTURES: Stable moderate cardiomegaly BONES: No acute findings. HARDWARE: None in the chest. OTHER: No other significant finding. IMPRESSION: Stable moderate cardiomegaly. Upper lobes are hyperinflated. No acute infiltrates TECHNICAL DOCUMENTATION: JOB ID: [id number] [employer]- All Rights Reserved Reading location - IP/workstation name: [email or web address]
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
[2018-01-18 19:35] LABS: ABSOLUTE EOSINOPHILS # (AUTO) 0.2 10^3/uL (0.0-0.6); ABSOLUTE LYMPHOCYTES (AUTO) 1.1 10^3/uL (0.5-4.7); BASOPHILS % (AUTO) 0.6 % (0-2); EOSINOPHILS % (AUTO) 2.2 % (0-6); HEMATOCRIT 44.2 % (36.0-47.0); HEMOGLOBIN 14.7 g/dL (12.0-15.5); LYMPHOCYTES % (AUTO) 14.7 % (13-45); MEAN CORPUSCULAR HEMOGLOBIN 33.1 pg (27.0-33.4); MEAN CORPUSCULAR HGB CONC 33.2 g/dL (32.0-36.0); MEAN CORPUSCULAR VOLUME 100 fl (80-97); MONOCYTES % (AUTO) 13.5 % (3-13); PLATELET COUNT 283 10^3/uL (150-450); RED BLOOD COUNT 4.44 10^6/uL (3.72-5.28); RED CELL DISTRIBUTION WIDTH 15.5 % (11.5-14.0); TOTAL CELLS COUNTED % (AUTO) 100 %; WHITE BLOOD COUNT 7.3 10^3/uL (4.0-10.5)
[2018-01-18 19:49] LABS: ALANINE AMINOTRANSFERASE 39 U/L (9-52); ALBUMIN 3.3 g/dL (3.5-5.0); ALKALINE PHOSPHATASE 46 U/L (38-126); ASPARTATE AMINO TRANSFERASE 31 U/L (14-36); BILIRUBIN,DIRECT 0.3 mg/dL (0.0-0.4); BILIRUBIN,TOTAL 1.2 mg/dL (0.2-1.3); BLOOD UREA NITROGEN 24 mg/dL (7-20); CALCIUM 9.2 mg/dL (8.4-10.2); GLUCOSE 87 mg/dL (75-110); TOTAL PROTEIN 6.4 g/dL (6.3-8.2)
[2018-01-18 19:54] LABS: CARBON DIOXIDE 37 mmol/L (22-30); CHLORIDE 102 mmol/L (98-107); SODIUM 140.8 mmol/L (137-145)
[2018-01-18 20:00] LABS: ANION GAP 2 (5-19)
[2018-01-18] MEDS ORDERED: IPRATROPIUM/ALBUTEROL 0.5-2.5 MG/3 ML AMPUL NEB ONE (20:57)
[2018-01-18 22:24] VITALS: BP 114/99
--- NOTE | 2018-01-18 23:52 | EKG REPORT ---
SEVERITY:- ABNORMAL ECG - SINUS RHYTHM LEFT ATRIAL ABNORMALITY CONSIDER RIGHT VENTRICULAR HYPERTROPHY : Confirmed by: Julieta Baker 18-Jan-2018 23:52:18
== END 2018-01-18 22:25 | disposition home or self-care (01) ==
LOC: ER 18:23
DX: J44.1 Chronic obstructive pulmonary disease with (acute) exacerbation (principal); R06.02 Shortness of breath; I10 Essential (primary) hypertension; R53.1 Weakness; R05 Cough; Z87.891 Personal history of nicotine dependence
CPT/HCPCS: 36415; 71045; 80053; 83880; 85025; 93005; 93010; 94640; 96374; 99285

== ENCOUNTER 2018-01-29 00:21 | Emergency (ER) | payer OTHER ==
[2018-01-29 02:55] LABS: ABSOLUTE LYMPHOCYTES (AUTO) 0.7 10^3/uL (0.5-4.7); ABSOLUTE MONOCYTES (AUTO) 0.3 10^3/uL (0.1-1.4); ABSOLUTE NEUT (AUTO) 6.8 10^3/uL (1.7-8.2); BASOPHILS % (AUTO) 0.2 % (0-2); EOSINOPHILS % (AUTO) 0.6 % (0-6); HEMATOCRIT 46.7 % (36.0-47.0); HEMOGLOBIN 15.4 g/dL (12.0-15.5); LYMPHOCYTES % (AUTO) 8.6 % (13-45); MEAN CORPUSCULAR HEMOGLOBIN 32.6 pg (27.0-33.4); MEAN CORPUSCULAR HGB CONC 33.1 g/dL (32.0-36.0); MEAN CORPUSCULAR VOLUME 99 fl (80-97); PLATELET COUNT 252 10^3/uL (150-450); RED BLOOD COUNT 4.74 10^6/uL (3.72-5.28); RED CELL DISTRIBUTION WIDTH 14.6 % (11.5-14.0); SEGMENTED NEUTROPHILS % (AUTO) 86.6 % (42-78); TOTAL CELLS COUNTED % (AUTO) 100 %; WHITE BLOOD COUNT 7.8 10^3/uL (4.0-10.5)
--- NOTE | 2018-01-29 03:06 | RADIOLOGY REPORT (SQ) ---
Chest single view on 01/29/2018 at 2:55 AM CLINICAL INDICATION: Shortness of breath, leg swelling COMPARISON: 01/18/2018 FINDINGS: Mild cardiomegaly is noted. The lungs are clear. Hilar and mediastinal contours are within normal limits. Pulmonary vascularity is within normal limits. IMPRESSION: No acute disease.
[2018-01-29 03:17] LABS: BLOOD UREA NITROGEN 23 mg/dL (7-20); CALCIUM 9.4 mg/dL (8.4-10.2); GLUCOSE 131 mg/dL (75-110); POTASSIUM 5.4 mmol/L (3.6-5.0)
[2018-01-29 03:23] LABS: CARBON DIOXIDE 37 mmol/L (22-30); CHLORIDE 100 mmol/L (98-107); SODIUM 140.6 mmol/L (137-145)
[2018-01-29 03:24] LABS: ANION GAP 4 (5-19)
[2018-01-29] MEDS ORDERED: FUROSEMIDE 40 MG TABLET PO ONE (05:03)
--- NOTE | 2018-01-29 05:09 | ER Document Report ---
ED General - General Chief Complaint: Feet Swelling Stated Complaint: SWOLLEN FEET/DIZZINESS Time Seen by Provider: 01/29/18 02:11 Notes: Patient is a 62-year-old female presents with complaint of lower extremity swelling has been ongoing for several days. She denies previous history of CHF however I do see it mentioned in her previous diagnosis. She denies any chest pain. She says she feels a little bit more short of breath than her usual baseline. She says she has 2 L of oxygen that she wears at home as needed. She denies any recent trauma to her extremities. No history of DVT T. No recent fevers or infections. TRAVEL OUTSIDE OF THE [place] IN LAST 30 DAYS: No - Related Data Allergies/Adverse Reactions: No Known Allergies Allergy (Verified 01/18/18 18:24) Past Medical History - Social History Smoking Status: Unknown if Ever Smoked Frequency of alcohol use: None Drug Abuse: None Family History: COPD, DM, Hypertension, Malignancy. denies: Arthritis, CAD, CVA , Hyperlipidemia, Thyroid Disfunction Patient has suicidal ideation: No Patient has homicidal ideation: No - Past Medical History Cardiac Medical History: Reports: Hx Hypertension Pulmonary Medical History: Reports: Hx Bronchitis, Hx COPD Renal/ Medical History: Denies: Hx Peritoneal Dialysis Past Surgical History: Reports: Hx Hysterectomy - Immunizations Hx Diphtheria, Pertussis, Tetanus Vaccination: Yes Review of Systems - Review of Systems Notes: My Normal Review Basic REVIEW OF SYSTEMS: CONSTITUTIONAL : Denies fever, chills, or sweats. Denies recent illness. EENT: Denies eye, ear, throat, or mouth pain or symptoms. Denies nasal or sinus congestion. CARDIOVASCULAR: Denies chest pain. RESPIRATORY: Denies cough, cold, or chest congestion. Some dyspnea GASTROINTESTINAL: Denies abdominal pain. Denies nausea, vomiting, or diarrhea. MUSCULOSKELETAL: Edema in bilateral lower extremities. SKIN: Denies rash or skin lesions. NEUROLOGICAL: Denies altered mental status or loss of consciousness. Denies headache. Denies weakness or paralysis or loss of use of either side. Denies problems with gait or speech. Denies sensory or motor loss. ALL OTHER SYSTEMS REVIEWED AND NEGATIVE. Physical Exam - Vital signs Vitals: Temp Pulse Resp BP Pulse Ox 98.3 F 73 22 H 167/98 H 99 01/29/18 01:04 01/29/18 01:04 01/29/18 01:04 01/29/18 01:04 01/29/18 01:04 - Notes Notes: General Appearance: Well nourished, alert, cooperative, no acute distress, no obvious discomfort. Vitals: reviewed, See vital signs table. Head: no swelling or tenderness to the head Eyes: PERRL, EOMI, Conjuctiva clear Mouth: No decreasd moisture Neck: Supple, no neck tenderness, No thyromegaly Lungs: No wheezing, No rales, No rhonci, No accessory muscle use, good air exchange bilaterally. Heart: Normal rate, Regular rythm, No murmur, no rub Abdomen: Normal BS, soft, No rigidity, No abdominal tenderness, No guarding, no rebound, no abdominal masses, no organomegaly Extremities: strength 5/5 in all extremities, good pulses in all extremities, no swelling or tenderness in the extremities, bilateral 1+ lower extremity edema. Skin: warm, dry, appropriate color, no rash Neuro: speech clear, oriented x 3, normal affect, responds appropriately to questions. Course - Re-evaluation Re-evalutation: 01/29/18 07:23 His BNP is elevated. Suspect that her edema is related to congestive heart failure. I will place her on Lasix. I will refer her to cardiology. She now mentions that she her doctor was arranging for her to see cardiology because of her similar symptoms. Currently she has no chest pain. Her troponin is negative. I feel she is safe to be discharged home. I encouraged her return to ER if she has recurrent chest pain, difficulty breathing, worsening edema, or she feels unwell. Patient agrees with plan will be discharged home. Dictation of this chart was performed using voice recognition software; therefore, there may be some unintended grammatical errors. 01/29/18 07:24 - Vital Signs Vital signs: Temp Pulse Resp BP Pulse Ox 98.2 F 73 25 H 159/89 H 100 01/29/18 05:44 01/29/18 01:04 01/29/18 05:44 01/29/18 05:44 01/29/18 05:44 - Laboratory Result Diagrams: 01/29/18 02:46 01/29/18 02:46 Laboratory results interpreted by me: 01/29/18 01/29/18 01/29/18 02:46 02:46 02:46 MCV 99 H RDW 14.6 H Seg Neutrophils % 86.6 H Lymphocytes % 8.6 L Potassium 5.4 H Carbon Dioxide 37 H Anion Gap 4 L BUN 23 H Creatinine 1.29 H Est GFR ( Amer) 51 L Est GFR (Non-Af Amer) 42 L Glucose 131 H NT-Pro-B Natriuret Pep 5070 H Discharge - Discharge Clinical Impression: Swelling of lower extremity CHF (congestive heart failure) Qualifiers: Heart failure type: unspecified Heart failure chronicity: unspecified Qualified Code(s): I50.9 - Heart failure, unspecified Condition: Good Disposition: HOME, SELF-CARE Additional Instructions: Your workup today suggests that the fluid in your legs is related to Congestive heart failure. This could be related to your long history of high blood pressure. It is important you call the welfare officer, Dr. Hennessy, to make a close follow up appointment. Please take the water pill (Lasix) as prescribed. Please follow up with your doctor later this week for reevaluation. Please buy compression stockings and wear them to help reduce edema. Please return to the ER immediately if you have chest pain, worsening difficulty breathing, increasing swelling, or feel unwell. Prescriptions: Furosemide [Lasix 40 mg Tablet] 40 mg PO QAM #14 tablet Potassium Chloride 10 meq PO ASDIR #14 capsule.er Referrals: DAVID LARA MD [ACTIVE STAFF] - Follow up in 3-5 days (Call the office this morning to make a close follow up appointment.)
[2018-01-29 05:48] VITALS: BP 159/89
== END 2018-01-29 05:48 | disposition home or self-care (01) ==
LOC: ER 00:21
DX: I11.0 Hypertensive heart disease with heart failure (principal); I50.9 Heart failure, unspecified; J44.9 Chronic obstructive pulmonary disease, unspecified; R60.0 Localized edema; R06.02 Shortness of breath
CPT/HCPCS: 36415; 71045; 80048; 83880; 84484; 85025; 99284

== ENCOUNTER 2018-09-27 12:25 | Emergency (ER) | payer OTHER ==
[2018-09-27] MEDS ORDERED: LIDOCAINE 5% (700 MG) TRANSDERMAL ADH..PATCH TP ONE (14:13)
[2018-09-27] MEDS ORDERED: ACETAMINOPHEN 325 MG TABLET PO ONE (14:13)
--- NOTE | 2018-09-27 14:15 | ER Document Report ---
ED Medical Screen (RME) - General Chief Complaint: Back Pain Stated Complaint: BACK PAIN Time Seen by Provider: 09/27/18 14:11 Primary Care Provider: LUISITO SHEPPARD PA [Primary Care Provider] - Follow up as needed TRAVEL OUTSIDE OF THE [place] IN LAST 30 DAYS: No - HPI Notes: 09/27/18 14:13 Patient is a 62-year-old female with a history of hypertension and oxygen dependent COPD who presents complaining of lower back pain over the past couple days precipitating event. Patient states the pain does not radiate. She is still able to eat and drink without difficulty. She still urinating normally and having normal bowel movements. Denies history of spinal abscess, IV drug abuse, or diabetes. Denies any URI, sore throat, chest pain, palpitations, syncope, new onset shortness of breath, abdominal pain, nausea/vomiting/diarrhea, urinary retention, dysuria, hematuria, loss of control of bowel or bladder, numbness/tingling, saddle anesthesia, muscle paralysis/weakness, or rash. Denies RAWLS, fever, neck pain, URI, CP, SOB, Abd pain, or rash. I have treated and performed a rapid initial assessment of this patient. A comprehensive ED assessment and evaluation of the patient, analysis of test results and completion of medical decision making process will be conducted by additional ED providers. PHYSICAL EXAMINATION: GENERAL: Well-appearing, well-nourished and in no acute distress. A&Ox4. Answers questions appropriately. Back: + tenderness L-spine midline and paraspinal. Pt not able to be eval'd very thoroughly as she is in a wheel chair. - Related Data Allergies/Adverse Reactions: No Known Allergies Allergy (Verified 01/18/18 18:24) Past Medical History - Past Medical History Cardiac Medical History: Reports: Hx Hypertension Pulmonary Medical History: Reports: Hx Bronchitis, Hx COPD Renal/ Medical History: Denies: Hx Peritoneal Dialysis Past Surgical History: Reports: Hx Hysterectomy - Immunizations Hx Diphtheria, Pertussis, Tetanus Vaccination: Yes History of Influenza Vaccine for 02/2017 - 07/2017 Season: Yes Influenza Administration Date for 02/2017 - 07/2017 Season: 02/04/18 Physical Exam - Vital signs Vitals: Temp Pulse Resp BP Pulse Ox 97.6 F 64 18 117/99 H 94 09/27/18 12:46 09/27/18 12:46 09/27/18 12:46 09/27/18 12:46 09/27/18 12:46 Course - Vital Signs Vital signs: Temp Pulse Resp BP Pulse Ox 97.6 F 64 18 117/99 H 94 09/27/18 12:46 09/27/18 12:46 09/27/18 12:46 09/27/18 12:46 09/27/18 12:46 Doctor's Discharge - Discharge Referrals: LUISITO SHEPPARD PA [Primary Care Provider] - Follow up as needed
--- NOTE | 2018-09-27 16:00 | RADIOLOGY REPORT (SQ) ---
EXAM DESCRIPTION: L SPINE WHOLE COMPLETED DATE/TIME: 09/27/2018 3:36 pm REASON FOR STUDY: low back pain COMPARISON: None. NUMBER OF VIEWS: Five views including obliques. TECHNIQUE: AP, lateral, oblique, and sacral radiographic images acquired of the lumbar spine. LIMITATIONS: None. FINDINGS: MINERALIZATION: Normal. SEGMENTATION: Normal. No transitional anatomy. ALIGNMENT: Slight anterolisthesis of L4 on L5. VERTEBRAE: Maintained height. No fracture or worrisome bone lesion. DISCS: Moderate severe disc space narrowing at L5-S1 with small anterior osteophytes. POSTERIOR ELEMENTS: Pedicles and facets are intact. No pars defect or posterior arch defects. HARDWARE: None in the spine. PARASPINAL SOFT TISSUES: Normal. PELVIS: Intact as visualized. No fractures or worrisome bone lesions. SI joints intact. OTHER: Mild atherosclerotic changes involving the abdominal aorta. IMPRESSION: 1. Degenerative disc disease L5-S1. Slight anterolisthesis of L4 on L5. 2. No acute osseous findings. TECHNICAL DOCUMENTATION: JOB ID: [id number] [employer]- All Rights Reserved Reading location - IP/workstation name: [email or web address]
[2018-09-27 16:02] LABS: ABSOLUTE EOSINOPHILS # (AUTO) 0.2 10^3/uL (0.0-0.6); ABSOLUTE LYMPHOCYTES (AUTO) 1.6 10^3/uL (0.5-4.7); ABSOLUTE MONOCYTES (AUTO) 0.8 10^3/uL (0.1-1.4); ABSOLUTE NEUT (AUTO) 6.4 10^3/uL (1.7-8.2); BASOPHILS % (AUTO) 0.3 % (0-2); EOSINOPHILS % (AUTO) 1.9 % (0-6); HEMATOCRIT 35.5 % (36.0-47.0); HEMOGLOBIN 11.9 g/dL (12.0-15.5); LYMPHOCYTES % (AUTO) 17.5 % (13-45); MEAN CORPUSCULAR HEMOGLOBIN 31.8 pg (27.0-33.4); MEAN CORPUSCULAR HGB CONC 33.4 g/dL (32.0-36.0); MEAN CORPUSCULAR VOLUME 95 fl (80-97); MONOCYTES % (AUTO) 8.7 % (3-13); PLATELET COUNT 243 10^3/uL (150-450); RED BLOOD COUNT 3.74 10^6/uL (3.72-5.28); RED CELL DISTRIBUTION WIDTH 12.7 % (11.5-14.0); SEGMENTED NEUTROPHILS % (AUTO) 71.6 % (42-78); TOTAL CELLS COUNTED % (AUTO) 100 %; WHITE BLOOD COUNT 8.9 10^3/uL (4.0-10.5)
[2018-09-27 16:23] LABS: ALANINE AMINOTRANSFERASE 14 U/L (9-52); ALBUMIN 4.3 g/dL (3.5-5.0); ALKALINE PHOSPHATASE 89 U/L (38-126); ANION GAP 9 (5-19); ASPARTATE AMINO TRANSFERASE 23 U/L (14-36); BILIRUBIN,DIRECT 0.2 mg/dL (0.0-0.4); BILIRUBIN,TOTAL 0.8 mg/dL (0.2-1.3); BLOOD UREA NITROGEN 28 mg/dL (7-20); CALCIUM 10.1 mg/dL (8.4-10.2); CARBON DIOXIDE 34 mmol/L (22-30); CHLORIDE 98 mmol/L (98-107); GLUCOSE 86 mg/dL (75-110); POTASSIUM 4.8 mmol/L (3.6-5.0); SODIUM 141.1 mmol/L (137-145); TOTAL PROTEIN 8.2 g/dL (6.3-8.2)
[2018-09-27 18:07] LABS: APPEARANCE,URINE SLIGHTLY-CLOUDY; BILIRUBIN,URINE NEGATIVE (NEGATIVE); COLOR,URINE YELLOW; GLUCOSE, URINE NEGATIVE (NEGATIVE); KETONES,URINE NEGATIVE (NEGATIVE); LEUKOCYTE ESTERASE,URINE NEGATIVE (NEGATIVE); NITRITE,URINE NEGATIVE (NEGATIVE); PROTEIN,URINE NEGATIVE (NEGATIVE); URINE SPECIFIC GRAVITY 1.011; UROBILINOGEN,URINE NEGATIVE mg/dL (<2.0)
--- NOTE | 2018-09-27 18:50 | ER Document Report ---
ED General - General Chief Complaint: Back Pain Stated Complaint: BACK PAIN Time Seen by Provider: 09/27/18 14:11 Primary Care Provider: LUISITO SHEPPARD PA [Primary Care Provider] - Follow up as needed TRAVEL OUTSIDE OF THE [place] IN LAST 30 DAYS: No - HPI Notes: Patient is a 62-year-old female presents to the emergency department for evaluation of lower back pain. Is been ongoing for about a week. She saw her primary care physician, who told her that "it could be her medications affecting her kidneys." She sent her here to the emergency department for evaluation. The pain does not radiate. She denies any bowel or bladder incontinence, no saddle anesthesia, no focal numbness or weakness. She had no fevers. She rates her pain a 10 out of 10. She states, however, that the lidocaine patch she was given here in the emergency department is helped her significantly. She asks for a prescription. - Related Data Allergies/Adverse Reactions: No Known Allergies Allergy (Verified 01/18/18 18:24) Past Medical History - General Information source: Patient - Social History Smoking Status: Current Every Day Smoker Family History: COPD, DM, Hypertension, Malignancy. denies: Arthritis, CAD, C VA, Hyperlipidemia, Thyroid Disfunction Patient has suicidal ideation: No Patient has homicidal ideation: No - Past Medical History Cardiac Medical History: Reports: Hx Hypertension Pulmonary Medical History: Reports: Hx Bronchitis, Hx COPD Renal/ Medical History: Denies: Hx Peritoneal Dialysis Past Surgical History: Reports: Hx Hysterectomy - Immunizations Hx Diphtheria, Pertussis, Tetanus Vaccination: Yes Review of Systems - Review of Systems Constitutional: No symptoms reported EENT: No symptoms reported Cardiovascular: No symptoms reported Respiratory: No symptoms reported Gastrointestinal: No symptoms reported Genitourinary: No symptoms reported Musculoskeletal: See HPI Skin: No symptoms reported Neurological/Psychological: No symptoms reported Physical Exam - Vital signs Vitals: Temp Pulse Resp BP Pulse Ox 97.6 F 64 18 117/99 H 94 09/27/18 12:46 09/27/18 12:46 09/27/18 12:46 09/27/18 12:46 09/27/18 12:46 - Notes Notes: Vital signs reviewed, please refer to chart. Head is normocephalic, atraumatic. Pupils equal round, reactive to light. Neck is supple without meningismus. Heart is regular rate and rhythm. Lungs are clear to auscultation bilaterally. Abdomen is soft, nontender, normoactive bowel sounds throughout. Examination of the spine yields no midline tenderness or step-off. His paraspinal musculature tenderness noted from approximately L3-L5 and into the SI joints bilaterally. Negative straight leg raise bilaterally. Sensation intact. extremities without cyanosis, clubbing. Posterior calves are nontender. Peripheral pulses are equal. Skin is warm and dry. Patient is awake, alert, neurological exam is nonfocal. Course - Re-evaluation Re-evalutation: 09/27/18 18:49 Patient presents to the emergency department for evaluation. Laboratory investigations were obtained, as well as imaging. Her creatinine is mildly elevated, but she has been that high in the past. It certainly is not my suspicion that her pain is from her kidney function. Urinalysis failed to reveal any signs of bladder infection. I will consider him with a prescription for lidocaine patches. She is to follow-up with primary care, return to the emergency department with worsening or new concerning symptoms of any sort. - Vital Signs Vital signs: Temp Pulse Resp BP Pulse Ox 97.9 F 58 L 18 122/74 99 09/27/18 18:59 09/27/18 18:59 09/27/18 18:59 09/27/18 18:59 09/27/18 18:59 - Laboratory Result Diagrams: 09/27/18 15:45 09/27/18 15:45 Laboratory results interpreted by me: 09/27/18 09/27/18 15:45 15:45 Hgb 11.9 L Hct 35.5 L Carbon Dioxide 34 H BUN 28 H Creatinine 1.53 H Est GFR ( Amer) 42 L Est GFR (Non-Af Amer) 35 L Discharge - Discharge Clinical Impression: Low back pain Qualifiers: Chronicity: acute Back pain laterality: bilateral Sciatica presence: without sciatica Qualified Code(s): M54.5 - Low back pain Condition: Stable Disposition: HOME, SELF-CARE Instructions: Low Back Pain ([facility]) Additional Instructions: Lidocaine patches as directed. Follow-up with your primary care physician this week. Return to the emergency department with worsening or new concerning symptoms. Prescriptions: Lidocaine [Lidoderm 5% (700 mg) Transdermal Patch] 1 patch TP DAILY #30 adh..patch Referrals: LUISITO SHEPPARD PA [Primary Care Provider] - Follow up as needed
[2018-09-27 19:00] VITALS: BP 122/74
== END 2018-09-27 19:00 | disposition home or self-care (01) ==
LOC: ER 12:25
DX: M54.5 Low back pain (principal); F17.200 Nicotine dependence, unspecified, uncomplicated; I10 Essential (primary) hypertension; J44.9 Chronic obstructive pulmonary disease, unspecified; Z90.710 Acquired absence of both cervix and uterus
CPT/HCPCS: 36415; 72110; 80053; 81001; 85025; 99283

== ENCOUNTER → 2018-10-04 | Outpatient (CLI) | payer OTHER, MEDICAID ==
--- NOTE | 2018-10-04 11:36 | RADIOLOGY REPORT (SQ) ---
EXAM DESCRIPTION: U/S RETROPERITON (RENAL/AORTA) COMPLETED DATE/TIME: 10/04/2018 9:55 am REASON FOR STUDY: R94.4 ABNORMAL RESULTS OF KIDNEY FUNCTION STUDIES R94.4 ABNORMAL RESULTS OF KIDNE Y FUNCTION STUDIES COMPARISON: None. TECHNIQUE: Dynamic and static grayscale images acquired of the kidneys and bladder and recorded on P ACS. Additional selected color Doppler and spectral images recorded. LIMITATIONS: None. FINDINGS: RIGHT KIDNEY: 6.9 cm. Increased cortical echogenicity. No solid or suspicious masses. Mild hydronephrosis. No calcifications. LEFT KIDNEY: 7.6 cm. Increased cortical echogenicity. No solid or suspicious masses. Mild hydr onephrosis. No calcifications. BLADDER: No masses. OTHER: No other significant finding. IMPRESSION: Chronic medical renal disease. Mild bilateral hydronephrosis. TECHNICAL DOCUMENTATION: JOB ID: [id number] [employer]- All Rights Reserved Reading location - IP/workstation name: [email or web address]
== END ==
LOC: RAD 08:45
PROVIDERS: ATTEND Physician Assistant
DX: N18.9 Chronic kidney disease, unspecified (principal); N13.30 Unspecified hydronephrosis
CPT/HCPCS: 76770

== ENCOUNTER 2019-01-19 01:38 | Emergency (ER) | payer MEDICAID, OTHER ==
[2019-01-19] MEDS ORDERED: IPRATROPIUM/ALBUTEROL 0.5-2.5 MG/3 ML AMPUL NEB ONE (02:06)
[2019-01-19 02:12] LABS: ABSOLUTE EOSINOPHILS # (AUTO) 0.1 10^3/uL (0.0-0.6); ABSOLUTE LYMPHOCYTES (AUTO) 0.7 10^3/uL (0.5-4.7); ABSOLUTE MONOCYTES (AUTO) 0.5 10^3/uL (0.1-1.4); ABSOLUTE NEUT (AUTO) 5.5 10^3/uL (1.7-8.2); BASOPHILS % (AUTO) 0.7 % (0-2); EOSINOPHILS % (AUTO) 0.9 % (0-6); HEMATOCRIT 32.1 % (36.0-47.0); HEMOGLOBIN 10.4 g/dL (12.0-15.5); LYMPHOCYTES % (AUTO) 10.7 % (13-45); MEAN CORPUSCULAR HEMOGLOBIN 31.2 pg (27.0-33.4); MEAN CORPUSCULAR HGB CONC 32.3 g/dL (32.0-36.0); MEAN CORPUSCULAR VOLUME 97 fl (80-97); MONOCYTES % (AUTO) 7.6 % (3-13); PLATELET COUNT 299 10^3/uL (150-450); RED BLOOD COUNT 3.32 10^6/uL (3.72-5.28); SEGMENTED NEUTROPHILS % (AUTO) 80.1 % (42-78); TOTAL CELLS COUNTED % (AUTO) 100 %; WHITE BLOOD COUNT 6.9 10^3/uL (4.0-10.5)
[2019-01-19] MEDS ORDERED: METHYLPREDNISOLONE INJ 125 MG/2 ML SDV IV ONE (02:27)
[2019-01-19 02:34] LABS: ALKALINE PHOSPHATASE 78 U/L (38-126); ANION GAP 9 (5-19); ASPARTATE AMINO TRANSFERASE 22 U/L (14-36); BILIRUBIN,DIRECT 0.1 mg/dL (0.0-0.4); BILIRUBIN,TOTAL 0.9 mg/dL (0.2-1.3); BLOOD UREA NITROGEN 22 mg/dL (7-20); CALCIUM 10.1 mg/dL (8.4-10.2); CARBON DIOXIDE 34 mmol/L (22-30); CHLORIDE 95 mmol/L (98-107); GLUCOSE 156 mg/dL (75-110); TOTAL PROTEIN 7.4 g/dL (6.3-8.2)
[2019-01-19 02:46] LABS: VENOUS BLOOD BASE EXCESS 9.9 mmol/L; VENOUS BLOOD HCO3 39.4 mmol/L (20-32); VENOUS BLOOD PH 7.28 (7.30-7.42)
[2019-01-19 02:52] LABS: VENOUS BLOOD PCO2 86.5 mmHg (35-63)
--- NOTE | 2019-01-19 03:16 | RADIOLOGY REPORT (SQ) ---
EXAM DESCRIPTION: XR CHEST 1 VIEW COMPLETED DATE/TME: 01/19/2019 02:03 CLINICAL HISTORY: 63 years Female, shortness of breath COMPARISON: None. NUMBER OF VIEWS/TECHNIQUE: 1/AP FINDINGS: Mild interstitial and mild bilateral lower patchy opacities. Adequate lung volume, normal cardiac silhouette, and intact bony thorax. IMPRESSION: Mild mixed interstitial and airpace opacities. Differential diagnosis includes pulmonary edema, multifocal pneumonia, and chronic interstitial lung disease.
--- NOTE | 2019-01-19 06:08 | ER Document Report ---
ED Respiratory Problem - General Chief Complaint: Shortness Of Breath Stated Complaint: DIFFICULTY BREATHING Time Seen by Provider: 01/19/19 01:53 Primary Care Provider: LUISITO SHEPPARD PA [Primary Care Provider] - Follow up as needed Mode of Arrival: Medic Information source: Patient Notes: Patient is a 63-year-old female with history of COPD and CHF presenting with chief complaint of shortness of breath. Patient reports she usually wears 2 L of home oxygen and states that she woke up this morning in a panic and felt short of breath. She states she has recently been started on Xanax for her increase in anxiety and is being referred to a psychiatrist. She states that prior to going to sleep she felt fine and did not have any increased work of breathing. Patient does report recent cough but states that this is chronic for her, denies any chest pain or recent fever. TRAVEL OUTSIDE OF THE [place] IN LAST 30 DAYS: No - Related Data Allergies/Adverse Reactions: No Known Allergies Allergy (Verified 01/18/18 18:24) Past Medical History - General Information source: Patient - Social History Smoking Status: Former Smoker Frequency of alcohol use: None Drug Abuse: None Family History: COPD, DM, Hypertension, Malignancy. denies: Arthritis, CAD, CVA, Hyperlipidemia, Thyroid Disfunction Patient has suicidal ideation: No Patient has homicidal ideation: No - Past Medical History Cardiac Medical History: Reports: Hx Hypertension Pulmonary Medical History: Reports: Hx Bronchitis, Hx COPD Renal/ Medical History: Denies: Hx Peritoneal Dialysis Past Surgical History: Reports: Hx Hysterectomy - Immunizations Hx Diphtheria, Pertussis, Tetanus Vaccination: Yes Review of Systems - Review of Systems Constitutional: No symptoms reported EENT: No symptoms reported Cardiovascular: No symptoms reported Respiratory: Short of breath Gastrointestinal: No symptoms reported Genitourinary: No symptoms reported Female Genitourinary: No symptoms reported Musculoskeletal: No symptoms reported Skin: No symptoms reported Hematologic/Lymphatic: No symptoms reported Neurological/Psychological: No symptoms reported Physical Exam - Vital signs Vitals: Temp Pulse Resp BP Pulse Ox 98.1 F 113 H 24 H 149/82 H 86 L 01/19/19 01:43 01/19/19 01:43 01/19/19 01:43 01/19/19 01:43 01/19/19 01:43 - Notes Notes: PHYSICAL EXAMINATION: GENERAL: Well-appearing, well-nourished and in no acute distress. HEAD: Atraumatic, normocephalic. EYES: Pupils equal round and reactive to light, extraocular movements intact, conjunctiva are normal. ENT: Nares patent, oropharynx clear without exudates. Moist mucous membranes. NECK: Normal range of motion, supple without lymphadenopathy LUNGS: Lung sounds clear and equal bilaterally, tachypnea noted. Mildly increased work of breathing. HEART: Regular rate and rhythm without murmurs ABDOMEN: Soft, nontender, nondistended abdomen. No guarding, no rebound. No masses appreciated. Female : deferred Musculoskeletal: Normal range of motion, no pitting or edema. No cyanosis. NEUROLOGICAL: Cranial nerves grossly intact. Normal speech, normal gait. Normal sensory, motor exams PSYCH: Normal mood, normal affect. SKIN: Warm, Dry, normal turgor, no rashes or lesions noted. Course - Re-evaluation Re-evalutation: Patient was initially hypoxic with a pulse ox of 84% however this was not a good Plath and patient was very worked up and anxious. Once patient settled into the room her oxygen saturation came up easily to 88 to 90% which is where her bas mahesh should be considering she has COPD. Patient does report significant significant recent anxiety to the point where her primary care provider has started her on Xanax. She denies any recent fevers. She does report cough with increased sputum production. Work-up today is rather unremarkable. She was given a DuoNeb due to her increased work of breathing however her lung sounds were clear. Lung sounds remain clear, she has passed resting peacefully and has no increased work of breathing on reevaluation. I do think anxiety is a likely component of this. Chest x-ray shows possible small opacity. Given patient's age and comorbidities I do think is reasonable to start her on a short course of antibiotics and steroids. Her vital signs have been stable and she will be discharged home. ED return precautions were discussed. - Vital Signs Vital signs: Temp Pulse Resp BP Pulse Ox 98.1 F 113 H 23 H 143/82 H 95 01/19/19 06:01 01/19/19 01:43 01/19/19 06:01 01/19/19 06:01 01/19/19 06:01 - Laboratory Result Diagrams: 01/19/19 01:55 01/19/19 01:55 Laboratory results interpreted by me: 01/19/19 01/19/19 01/19/19 01:55 01:55 02:42 RBC 3.32 L Hgb 10.4 L Hct 32.1 L Lymph % (Auto) 10.7 L Seg Neutrophils % 80.1 H VBG pH 7.28 L VBG pCO2 86.5 H* VBG HCO3 39.4 H Chloride 95 L Carbon Dioxide 34 H BUN 22 H Creatinine 1.42 H Est GFR ( Amer) 46 L Est GFR (MDRD) Non-Af 38 L Glucose 156 H Discharge - Discharge Clinical Impression: Shortness of breath, Cough Condition: Stable Disposition: HOME, SELF-CARE Additional Instructions: Your work-up here in the emergency department was reassuring. Your chest x-ray showed a very small area that may be an evolving pneumonia. For this reason we will start you on some antibiotics and steroids. Please follow-up with your primary care provider, call them Sunday to schedule a follow-up appointment. Please continue to use your oxygen as your primary care provider has prescribed. Return to the emergency department with any new or worsening symptoms. Prescriptions: Prednisone [Deltasone 20 mg Tablet] 3 tab PO DAILY 5 Days #15 tablet Doxycycline Hyclate 100 mg PO BID #14 capsule Referrals: LUISITO SHEPPARD PA [Primary Care Provider] - Follow up as needed
[2019-01-19 06:10] VITALS: BP 143/82
== END 2019-01-19 07:00 | disposition home or self-care (01) ==
LOC: ER 01:38
DX: R06.02 Shortness of breath (principal); R05 Cough; F41.9 Anxiety disorder, unspecified; J44.9 Chronic obstructive pulmonary disease, unspecified; I11.0 Hypertensive heart disease with heart failure; I50.9 Heart failure, unspecified; Z99.81 Dependence on supplemental oxygen; Z79.899 Other long term (current) drug therapy; Z87.891 Personal history of nicotine dependence
CPT/HCPCS: 36415; 85025; 80053; 82803; 71045; J2930; J7620; 94640; 96374; 99285

== ENCOUNTER 2019-02-12 17:15 | Inpatient (IN) | payer BC ==
[2019-02-12] MEDS ORDERED: IPRATROPIUM/ALBUTEROL 0.5-2.5 MG/3 ML AMPUL NEB ONE ×4 (17:35→18:40)
[2019-02-12] MEDS ORDERED: METHYLPREDNISOLONE INJ 125 MG/2 ML SDV IV ONE (17:37)
--- NOTE | 2019-02-12 17:42 | ER Document Report ---
ED Medical Screen (RME) - General Chief Complaint: Shortness Of Breath Stated Complaint: SHORTNESS OF BREATH Time Seen by Provider: 02/12/19 17:31 Primary Care Provider: LUISITO SHEPPARD PA [Primary Care Provider] - Follow up as needed Notes: Patient is 63-year-old female presents to the emergency department with a chief complaint of shortness of breath. Her shortness of breath started today this morning. Around 1300 give herself a breathing treatment, but continues to have shortness of breath. Patient has a past medical history of CHF, anxiety, COPD, and hypertension. She states that her oxygen saturation is usually in the upper 80s. She is oxygen dependent on 2 L nasal cannula. Patient denies any actual chest pain. Patient is a former smoker. Exam: Diminished breath sounds throughout. I have greeted and performed a rapid initial assessment of this patient. A comprehensive ED assessment and evaluation of the patient, analysis of test results and completion of medical decision making process will be conducted by an additional ED providers. TRAVEL OUTSIDE OF THE [place] IN LAST 30 DAYS: No - Related Data Allergies/Adverse Reactions: No Known Allergies Allergy (Verified 01/18/18 18:24) Past Medical History - Social History Chew tobacco use (# tins/day): No Frequency of alcohol use: None Drug Abuse: None - Past Medical History Cardiac Medical History: Reports: Hx Hypertension Pulmonary Medical History: Reports: Hx Bronchitis, Hx COPD Renal/ Medical History: Denies: Hx Peritoneal Dialysis Past Surgical History: Reports: Hx Hysterectomy - Immunizations Hx Diphtheria, Pertussis, Tetanus Vaccination: Yes Physical Exam - Vital signs Vitals: Temp Pulse Resp BP Pulse Ox 97.6 F 88 30 H 126/98 H 87 L 02/12/19 17:31 02/12/19 17:31 02/12/19 17:31 02/12/19 17:31 02/12/19 17:31 Course - Vital Signs Vital signs: Temp Pulse Resp BP Pulse Ox 97.6 F 88 30 H 126/98 H 87 L 02/12/19 17:31 02/12/19 17:31 02/12/19 17:31 02/12/19 17:31 02/12/19 17:31 Doctor's Discharge - Discharge Referrals: LUISITO SHEPPARD PA [Primary Care Provider] - Follow up as needed
[2019-02-12] MEDS: MAGNESIUM SULFATE/D5W 1 GM/100 ML RTUPB IV SCH ×2 (19:14→20:29)
[2019-02-12 19:26] LABS: ALBUMIN 3.9 g/dL (3.5-5.0); ALKALINE PHOSPHATASE 67 U/L (38-126); ANION GAP 7 (5-19); ASPARTATE AMINO TRANSFERASE 47 U/L (14-36); BILIRUBIN,DIRECT 0.2 mg/dL (0.0-0.4); BILIRUBIN,TOTAL 0.6 mg/dL (0.2-1.3); BLOOD UREA NITROGEN 35 mg/dL (7-20); CALCIUM 9.5 mg/dL (8.4-10.2); CARBON DIOXIDE 34 mmol/L (22-30); CHLORIDE 97 mmol/L (98-107); CREATINE KINASE 64 U/L (30-135); GLUCOSE 127 mg/dL (75-110); POTASSIUM 5.9 mmol/L (3.6-5.0); TOTAL PROTEIN 7.1 g/dL (6.3-8.2)
[2019-02-12 19:41] LABS: CREATINE KINASE MB 2.93 ng/mL (<4.55)
[2019-02-12 19:42] LABS: TROPONIN I < 0.012 ng/mL
[2019-02-12 20:20] LABS: ABSOLUTE EOSINOPHILS # (AUTO) 0.1 10^3/uL (0.0-0.6); ABSOLUTE LYMPHOCYTES (AUTO) 0.6 10^3/uL (0.5-4.7); ABSOLUTE MONOCYTES (AUTO) 0.4 10^3/uL (0.1-1.4); ABSOLUTE NEUT (AUTO) 4.9 10^3/uL (1.7-8.2); BASOPHILS % (AUTO) 0.3 % (0-2); EOSINOPHILS % (AUTO) 1.2 % (0-6); HEMATOCRIT 34.3 % (36.0-47.0); HEMOGLOBIN 10.9 g/dL (12.0-15.5); LYMPHOCYTES % (AUTO) 9.3 % (13-45); MEAN CORPUSCULAR HEMOGLOBIN 32.1 pg (27.0-33.4); MEAN CORPUSCULAR HGB CONC 31.9 g/dL (32.0-36.0); MONOCYTES % (AUTO) 6.1 % (3-13); PLATELET COUNT 257 10^3/uL (150-450); RED CELL DISTRIBUTION WIDTH 16.3 % (11.5-14.0); SEGMENTED NEUTROPHILS % (AUTO) 83.1 % (42-78); TOTAL CELLS COUNTED % (AUTO) 100 %; WHITE BLOOD COUNT 5.9 10^3/uL (4.0-10.5)
--- NOTE | 2019-02-12 20:20 | RADIOLOGY REPORT (SQ) ---
XR CHEST 1 VIEW CLINICAL STATEMENT: SOB COMPARISON: 01/19/2019 FINDINGS: Heart is mildly enlarged. There is no focal lung consolidation or pleural effusion. No evidence of pulmonary edema or pneumothorax. IMPRESSION: No acute cardiopulmonary disease.
[2019-02-12 20:21] LABS: VENOUS BLOOD BASE EXCESS 5.9 mmol/L; VENOUS BLOOD HCO3 38.8 mmol/L (20-32)
[2019-02-12 20:22] LABS: MEAN CORPUSCULAR VOLUME 101 fl (80-97)
[2019-02-12 20:26] LABS: VENOUS BLOOD PCO2 117.5 mmHg (35-63); VENOUS BLOOD PH 7.14 (7.30-7.42)
--- NOTE | 2019-02-12 20:39 | RADIOLOGY REPORT (SQ) ---
US CHEST EXAM DATE: 02/12/2019 5:35 PM CDT HISTORY: Shortness of breath COMPARISON: None. TECHNIQUE: Grayscale and color Doppler images of the chest were obtained. FINDINGS: No pleural effusions are identified in the left and right pleural spaces. IMPRESSION: No pleural effusions.
[2019-02-12] MEDS ORDERED: LEVOFLOXACIN 750 MG/D5W RTU 750 MG/150 ML RTUPB IV ONE (20:54)
--- NOTE | 2019-02-12 21:22 | ER Document Report ---
ED Respiratory Problem - General Chief Complaint: Shortness Of Breath Stated Complaint: SHORTNESS OF BREATH Time Seen by Provider: 02/12/19 17:31 Notes: Patient is a 63-year-old female with a history of COPD and CHF who is come in with worsening shortness of breath over the last 2 days. Patient states she was seen in the emergency department a few weeks ago and treated with antibiotics and steroids. She has not taken those in about a week now. Denies any swelling. No chest pain. TRAVEL OUTSIDE OF THE [place] IN LAST 30 DAYS: No - Related Data Allergies/Adverse Reactions: No Known Allergies Allergy (Verified 01/18/18 18:24) Past Medical History - Social History Smoking Status: Former Smoker Chew tobacco use (# tins/day): No Frequency of alcohol use: None Drug Abuse: None Family History: COPD, DM, Hypertension, Malignancy. denies: Arthritis, CAD, CVA, Hyperlipidemia, Thyroid Disfunction Patient has suicidal ideation: No Patient has homicidal ideation: No - Past Medical History Cardiac Medical History: Reports: Hx Hypertension Pulmonary Medical History: Reports: Hx Bronchitis, Hx COPD Renal/ Medical History: Denies: Hx Peritoneal Dialysis Past Surgical History: Reports: Hx Hysterectomy - Immunizations Hx Diphtheria, Pertussis, Tetanus Vaccination: Yes Review of Systems - Review of Systems Constitutional: No symptoms reported EENT: No symptoms reported Cardiovascular: No symptoms reported Respiratory: See HPI Gastrointestinal: No symptoms reported Genitourinary: No symptoms reported Female Genitourinary: No symptoms reported Musculoskeletal: No symptoms reported Skin: No symptoms reported Hematologic/Lymphatic: No symptoms reported Neurological/Psychological: No symptoms reported Physical Exam - Vital signs Vitals: Pulse BP Pulse Ox 88 126/93 H 55 L 02/12/19 17:25 02/12/19 17:25 02/12/19 17:25 Interpretation: Hypoxic, Tachypneic - General General appearance: Alert In distress: Moderate - HEENT Head: Normocephalic, Atraumatic Eyes: Normal Pupils: PERRL - Respiratory Respiratory status: Respiratory distress Chest status: Nontender Breath sounds: Decreased air movement, Wheezing Chest palpation: Normal - Cardiovascular Rhythm: Regular Heart sounds: Normal auscultation Murmur: No - Abdominal Inspection: Normal Distension: No distension Bowel sounds: Normal Tenderness: Nontender Organomegaly: No organomegaly - Back Back: Normal, Nontender - Extremities General upper extremity: Normal inspection, Nontender, Normal color, Normal ROM, Normal temperature General lower extremity: Normal inspection, Nontender, Normal color, Normal ROM, Normal temperature, Normal weight bearing. No: Luis's sign - Neurological Neuro grossly intact: Yes Cognition: Normal Orientation: AAOx4 [place] Coma Scale Eye Opening: Spontaneous [place] Coma Scale Verbal: Oriented Jaci Coma Scale Motor: Obeys Commands Owings Coma Scale Total: 15 Speech: Normal Motor strength normal: LUE, RUE, LLE, RLE Sensory: Normal - Psychological Associated symptoms: Normal affect, Normal mood - Skin Skin Temperature: Warm Skin Moisture: Dry Skin Color: Normal Course - Re-evaluation Re-evalutation: Patient is a 63-year-old female who with a history of COPD and CHF who comes in with difficulty breathing. Received multiple nebulizer treatments, Solu-Medrol, magnesium. Patient was feeling better. Wears nasal cannula at home. Was hoping to go home; however, blood gas with pH of 7.1 for an elevated PCO2. P atient encouraged to be placed on BiPAP and stay in the hospital. She is willing to do this. Lamonte initiated. Discussed with Dr. Latif who will admit the patient to the IMCU. Stable at the time of admission. Of note, repeat blood gas with decreasing CO2 now that the patient has been on BiPAP. - Vital Signs Vital signs: Temp Pulse Resp BP Pulse Ox 97.5 F 63 20 129/85 H 100 02/13/19 01:30 02/13/19 01:30 02/13/19 01:30 02/13/19 01:30 02/13/19 01:30 - Laboratory Result Diagrams: 02/12/19 20:04 02/12/19 22:17 Laboratory results interpreted by me: 02/12/19 02/12/19 02/12/19 18:46 18:46 20:04 RBC Hgb Hct MCV MCHC RDW Lymph % (Auto) Seg Neutrophils % VBG pH 7.14 L* VBG pCO2 117.5 H* VBG HCO3 38.8 H Potassium 5.9 H Chloride 97 L Carbon Dioxide 34 H BUN 35 H Creatinine 1.84 H Est GFR ( Amer) 34 L Est GFR (MDRD) Non-Af 28 L Glucose 127 H AST 47 H NT-Pro-B Natriuret Pep [id number] H 02/12/19 20:04 RBC 3.40 L Hgb 10.9 L Hct 34.3 L MCV 101 H D MCHC 31.9 L RDW 16.3 H Lymph % (Auto) 9.3 L Seg Neutrophils % 83.1 H VBG pH VBG pCO2 VBG HCO3 Potassium Chloride Carbon Dioxide BUN Creatinine Est GFR ( Amer) Est GFR (MDRD) Non-Af Glucose AST NT-Pro-B Natriuret Pep - Diagnostic Test Radiology reviewed: Reports reviewed Critical Care Note - Critical Care Note Total time excluding time spent on procedures (mins): 35 - Aspiratory distress with multiple re-evaluations and coordination of admission Discharge - Discharge Clinical Impression: COPD exacerbation, Respiratory distress, Hypoxia Condition: Stable Disposition: ADMITTED INPATIENT Admitting Provider: [facility] Admitted: MYA
[2019-02-12] MEDS ORDERED: 1/2 NORMAL SALINE 1,000 ML IV PRN (21:29)
[2019-02-12] MEDS ORDERED: ACETAMINOPHEN 325 MG TABLET PO PRN (21:29)
[2019-02-12 22:24] LABS: VENOUS BLOOD BASE EXCESS 1.1 mmol/L; VENOUS BLOOD HCO3 32.2 mmol/L (20-32)
[2019-02-12 22:29] LABS: VENOUS BLOOD PCO2 95.2 mmHg (35-63); VENOUS BLOOD PH 7.15 (7.30-7.42)
[2019-02-12 22:48] LABS: ANION GAP 5 (5-19); BLOOD UREA NITROGEN 35 mg/dL (7-20); CALCIUM 9.5 mg/dL (8.4-10.2); CARBON DIOXIDE 37 mmol/L (22-30); CHLORIDE 95 mmol/L (98-107); GLUCOSE 130 mg/dL (75-110); POTASSIUM 5.3 mmol/L (3.6-5.0)
[2019-02-12] MEDS: FAMOTIDINE INJ/PF 20 MG/2 ML SDV IV SCH (23:18)
[2019-02-12] MEDS: CEFEPIME 1 GM/D5W RTU 1 GM/50 ML RTUPB IV SCH (23:21)
[2019-02-12] MEDS: HEPARIN SOD (PORCINE) 5,000 UNIT/ML 1 ML VIAL SUBCUT SCH (23:21)
[2019-02-13] MEDS ORDERED: METHYLPREDNISOLONE INJ 125 MG/2 ML SDV IV SCH ×3 (02:00→10:15)
[2019-02-13 04:33] LABS: APPEARANCE,URINE SLIGHTLY-CLOUDY; BILIRUBIN,URINE NEGATIVE (NEGATIVE); COLOR,URINE YELLOW; GLUCOSE, URINE NEGATIVE (NEGATIVE); KETONES,URINE NEGATIVE (NEGATIVE); LEUKOCYTE ESTERASE,URINE NEGATIVE (NEGATIVE); NITRITE,URINE NEGATIVE (NEGATIVE); PROTEIN,URINE 30 mg/dL (NEGATIVE); URINE SPECIFIC GRAVITY 1.011; UROBILINOGEN,URINE NEGATIVE mg/dL (<2.0)
[2019-02-13 04:52] LABS: URINE AMPHETAMINES SCREEN NEGATIVE; URINE BARBITURATES SCREEN NEGATIVE; URINE BENZODIAZEPINES SCREEN NEGATIVE; URINE COCAINE SCREEN NEGATIVE; URINE MARIJUANA (THC) SCREEN NEGATIVE; URINE METHADONE SCREEN NEGATIVE; URINE PHENCYCLIDINE SCREEN NEGATIVE
[2019-02-13] MEDS: HEPARIN SOD (PORCINE) 5,000 UNIT/ML 1 ML VIAL SUBCUT SCH ×3 (05:09→23:00)
[2019-02-13 05:22] LABS: HEMATOCRIT 35.3 % (36.0-47.0); HEMOGLOBIN 11.3 g/dL (12.0-15.5); MEAN CORPUSCULAR HEMOGLOBIN 32.3 pg (27.0-33.4); MEAN CORPUSCULAR HGB CONC 32.1 g/dL (32.0-36.0); MEAN CORPUSCULAR VOLUME 101 fl (80-97); PLATELET COUNT 266 10^3/uL (150-450); RED BLOOD COUNT 3.51 10^6/uL (3.72-5.28); RED CELL DISTRIBUTION WIDTH 16.6 % (11.5-14.0); WHITE BLOOD COUNT 4.6 10^3/uL (4.0-10.5)
[2019-02-13 05:39] LABS: ALBUMIN 3.9 g/dL (3.5-5.0); ALKALINE PHOSPHATASE 58 U/L (38-126); ANION GAP 5 (5-19); ASPARTATE AMINO TRANSFERASE 41 U/L (14-36); BILIRUBIN,DIRECT 0.2 mg/dL (0.0-0.4); BILIRUBIN,TOTAL 0.4 mg/dL (0.2-1.3); BLOOD UREA NITROGEN 31 mg/dL (7-20); CALCIUM 9.5 mg/dL (8.4-10.2); CARBON DIOXIDE 37 mmol/L (22-30); CHLORIDE 97 mmol/L (98-107); CREATINE KINASE 50 U/L (30-135); GLUCOSE 154 mg/dL (75-110); POTASSIUM 5.9 mmol/L (3.6-5.0); TOTAL PROTEIN 7.3 g/dL (6.3-8.2)
[2019-02-13 05:50] LABS: CREATINE KINASE MB 3.58 ng/mL (<4.55); NT PRO BNP 13300 pg/mL (5-900)
[2019-02-13 05:54] LABS: TROPONIN I < 0.012 ng/mL
--- NOTE | 2019-02-13 07:31 | EKG REPORT ---
SEVERITY:- ABNORMAL ECG - SINUS RHYTHM PROBABLE RIGHT VENTRICULAR HYPERTROPHY BORDERLINE T ABNORMALITIES, INFERIOR LEADS : Confirmed by: Neftaly Barrett MD 13-Feb-2019 07:30:18
[2019-02-13] MEDS: BUDESONIDE NEB 0.5 MG/2 ML AMPUL NEB SCH ×2 (08:18→20:31)
[2019-02-13] MEDS: IPRATROPIUM/ALBUTEROL 0.5-2.5 MG/3 ML AMPUL NEB SCH ×4 (08:19→20:31)
[2019-02-13 09:19] LABS: ARTERIAL BLOOD BASE EXCESS 3.1 mmol/L; ARTERIAL BLOOD FIO2 3L; ARTERIAL BLOOD H2CO3 2.98 mmol/L (1.05-1.35); ARTERIAL BLOOD HCO3 34.4 mmol/L (20-24); ARTERIAL BLOOD O2 SATURATION 96.8 % (94-98); ARTERIAL BLOOD PO2 117.6 mmHg (80-100); ARTERIAL BLOOD TOTAL CO2 37.5 mmol/L (21-25)
[2019-02-13 09:22] LABS: ARTERIAL BLOOD PH 7.16 (7.35-7.45)
[2019-02-13] MEDS ORDERED: (PENDING PHARMACY ID) (Buspirone Hcl [Buspar 15 Mg Tablet] 7.5 MG) PO SCH (10:00)
[2019-02-13] MEDS ORDERED: METOPROLOL SUCCINATE 50 MG TAB.SR.24H PO SCH ×2 (10:00)
[2019-02-13] MEDS ORDERED: AZITHROMYCIN INJ 500 MG VIAL IV ONE (10:12)
[2019-02-13] MEDS: CETIRIZINE 10 MG TABLET PO SCH (10:12)
[2019-02-13] MEDS: FAMOTIDINE INJ/PF 20 MG/2 ML SDV IV SCH (10:13)
--- NOTE | 2019-02-13 12:09 | RADIOLOGY REPORT (SQ) ---
EXAM DESCRIPTION: CHEST SINGLE VIEW COMPLETED DATE/TIME: 02/13/2019 11:44 am REASON FOR STUDY: copd/chf COMPARISON: Chest films 02/12/2019, 01/19/2019, 01/18/2019 EXAM PARAMETERS: NUMBER OF VIEWS: One view. TECHNIQUE: Single frontal radiographic view of the chest acquired. RADIATION DOSE: NA LIMITATIONS: None. FINDINGS: LUNGS AND PLEURA: Upper lobes are hyperlucent from obstructive disease. Mild vascular crop farmers wding in the mid and lower lungs without overt pulmonary edema. No pleural effusions or pneumothorax . MEDIASTINUM AND HILAR STRUCTURES: No masses. Contour normal. HEART AND VASCULAR STRUCTURES: Mild cardiomegaly BONES: No acute findings. HARDWARE: None in the chest. OTHER: No other significant finding. IMPRESSION: Cardiomegaly and pulmonary vascular prominence. No pulmonary edema or pleural effusions TECHNICAL DOCUMENTATION: JOB ID: [id number] [employer]- All Rights Reserved Reading location - IP/workstation name: [email or web address]
[2019-02-13] MEDS: METHYLPREDNISOLONE INJ 40 MG/1 ML SDV IV SCH ×2 (13:14→22:06)
[2019-02-13 13:18] LABS: VENOUS BLOOD BASE EXCESS 7.9 mmol/L; VENOUS BLOOD PH 7.3 (7.30-7.42)
[2019-02-13 13:24] LABS: VENOUS BLOOD PCO2 75.6 mmHg (35-63)
[2019-02-13] MEDS ORDERED: CEFTRIAXONE 1 GM/D5W RTU 1 GM/50 ML RTUPB IV SCH (15:00)
[2019-02-13] MEDS ORDERED: WATER FOR INJECTION,STERILE 1,000 ML with SODIUM BICARBONATE 125 MEQ IV PRN ×2 (15:33)
--- NOTE | 2019-02-13 15:36 | PDOC H&P ---
History of Present Illness Admission Date/PCP: 02/12/19 21:53 KAMRON SINGER Patient complains of: Difficulty in breathing respiratory distressed History of Present Illness: CECILE BERRIOS is a 63 year old female Is a 63-year-old female's with a history of the COPD chronic oxygen dependence history of the congestive heart failure's with a diastolic heart failure currently see her Dr. Baker history of the chronic kidney disease recently worsening the kidney functions history of the anxiety disorders and a top of that noncompliance does not follow in office properly present in the emergency department with a respiratory distressed or not feeling well cough congestions Since pH was 7.14 and patient's PCO2 is 117 and according to the ER physicians patient was alert awake and doing good and does not require ICU when I suggest the patient's initially to send to the ICU back to want to continues on a BiPAP and put on the IMCU Patient's I noticed the patient was a couple of times in the ER with the PCO2 was 75 most likely due to the chronic respiratory failure and pH was 7.28 Patient when I saw in the IMCU patient's was a little bit more sleepy and open the eye but not answering the questions properly repeat the ABG the pH was 7.16 and PCO2 was 95 As per discussed with Dr. Moore's already consulted and suggest the patient's probably need to the intensive care unit where patient is refusing the BiPAP At this points discussed with the director call center sales and patient is transferred to the intensive care units for further care Patient with chronic diastolic congestive heart failure already discussed with the Dr. Baker he will order the echocardiogram Patients have recently worsening the kidney functions ultrasound done in the outpatient was stable currently giving some IV fluid and correct the potassiums Past Medical History Cardiac Medical History: Reports: Congestive Heart Failure, Hypertension Pulmonary Medical History: Reports: Bronchitis, Chronic Obstructive Pulmonary Disease (COPD), Respiratory Failure EENT Medical History: Reports: None Neurological Medical History: Reports: None Endocrine Medical History: Reports: None Renal/ Medical History: Reports: Chronic Kidney Disease Malignancy Medical History: Reports: None GI Medical History: Reports: None Musculoskeltal Medical History: Reports: None Skin Medical History: Reports: None Psychiatric Medical History: Reports: Depression, General Anxiety Disorder Hematology: Reports: None Denies: Sickle Cell Disease Infectious Medical History: Reports: None Past Surgical History Past Surgical History: Reports: Hysterectomy Social History Lives with: Family Smoking Status: Former Smoker Cigarettes Packs Per Day: 2 Electronic Cigarette use?: No Number of Years Smokin Last Time Smoked: 1 year ago Frequency of Alcohol Use: None Hx Recreational Drug Use: No Drugs: None Hx Prescription Drug Abuse: No - Advance Directive Resuscitation Status: Full Code Family History Family History: None, COPD, DM, Hypertension, Malignancy. denies: Arthritis, CAD, CVA, Hyperlipidemia, Thyroid Disfunction Parental Family History Reviewed: Yes Children Family History Reviewed: Yes Sibling(s) Family History Reviewed.: Yes Medication/Allergy Home Medications: Alprazolam [Xanax 0.25 mg Tablet] 0.25 mg PO Q12 02/12/19 Buspirone HCl [Buspar 15 mg Tablet] 7.5 mg PO Q12 02/12/19 Cetirizine HCl [Zyrtec 10 mg Tablet] 10 mg PO DAILY 02/12/19 Escitalopram Oxalate [Lexapro 10 mg Tablet] 10 mg PO QHS 02/12/19 Levalbuterol HCl [Levalbuterol Concentrate] 1.25 mg NEB Q8HP PRN 02/12/19 Metoprolol Succinate [Toprol XL 100 mg Tablet] 100 mg PO DAILY 02/12/19 Potassium Chloride [Klor-Con 10 Meq Capsule ER] 10 meq PO Q2D 02/12/19 Spironolactone [Aldactone 25 mg Tablet] 12.5 mg PO DAILY 02/12/19 Allergies/Adverse Reactions: No Known Allergies Allergy (Verified 01/18/18 18:24) Review of Systems ROS unobtainable: Due to mental status All systems: reviewed and no additional remarkable complaints except as stated Physical Exam Vital Signs: Temp Pulse Resp BP Pulse Ox 97.7 F 114 H 20 116/85 97 02/13/19 11:15 02/13/19 12:32 02/13/19 12:32 02/13/19 11:15 02/13/19 12:32 Intake & Output 02/12/19 02/13/19 02/14/19 06:59 06:59 06:59 Intake Total 600 Balance 600 Weight 76 kg General appearance: PRESENT: mild distress, well-developed, well-nourished Head exam: PRESENT: atraumatic, normocephalic Eye exam: PRESENT: conjunctiva pink, EOMI, PERRLA. ABSENT: scleral icterus Ear exam: PRESENT: normal external ear exam Mouth exam: PRESENT: moist, tongue midline Neck exam: PRESENT: full ROM. ABSENT: carotid bruit, JVD, lymphadenopathy, thyromegaly Respiratory exam: PRESENT: decreased breath sounds, wheezes Cardiovascular exam: PRESENT: RRR. ABSENT: diastolic murmur, rubs, systolic murmur Vascular exam: PRESENT: normal capillary refill GI/Abdominal exam: PRESENT: normal bowel sounds, soft. ABSENT: distended, guarding, mass, organolmegaly, rebound, tenderness Rectal exam: PRESENT: deferred Neurological exam: PRESENT: altered. ABSENT: motor sensory deficit Psychiatric exam: PRESENT: appropriate affect, normal mood. ABSENT: homicidal ideation, suicidal ideation Skin exam: PRESENT: dry, intact, warm. ABSENT: cyanosis, rash Results Laboratory Results: 02/13/19 04:11 02/13/19 04:11 02/12/19 02/12/19 02/12/19 18:46 18:46 20:04 WBC Cancelled RBC Cancelled Hgb Cancelled Hct Cancelled MCV Cancelled MCH Cancelled MCHC Cancelled RDW Cancelled Plt Count Cancelled Seg Neutrophils % Cancelled Carbonic Acid HCO3/H2CO3 Ratio ABG pH ABG pCO2 ABG pO2 ABG HCO3 ABG O2 Saturation ABG Base Excess VBG pH 7.14 L* VBG pCO2 117.5 H* VBG HCO3 38.8 H VBG Base Excess 5.9 FiO2 Sodium 137.5 Potassium 5.9 H Chloride 97 L Carbon Dioxide 34 H Anion Gap 7 BUN 35 H Creatinine 1.84 H Est GFR ( Amer) 34 L Glucose 127 H Lactic Acid Calcium 9.5 Magnesium Total Bilirubin 0.6 AST 47 H Alkaline Phosphatase 67 Total Protein 7.1 Albumin 3.9 Urine Color Urine Appearance Urine pH Ur Specific [place] Urine Protein Urine Glucose (UA) Urine Ketones Urine Blood Urine Nitrite Ur Leukocyte Esterase Urine WBC (Auto) Urine RBC (Auto) 02/12/19 02/12/19 02/12/19 20:04 22:17 22:17 WBC 5.9 RBC 3.40 L Hgb 10.9 L Hct 34.3 L MCV 101 H D MCH 32.1 MCHC 31.9 L RDW 16.3 H Plt Count 257 Seg Neutrophils % 83.1 H Carbonic Acid HCO3/H2CO3 Ratio ABG pH ABG pCO2 ABG pO2 ABG HCO3 ABG O2 Saturation ABG Base Excess VBG pH 7.15 L* VBG pCO2 95.2 H* VBG HCO3 32.2 H VBG Base Excess 1.1 FiO2 Sodium 137.4 Potassium 5.3 H Chloride 95 L Carbon Dioxide 37 H Anion Gap 5 BUN 35 H Creatinine 1.86 H Est GFR ( Amer) 33 L Glucose 130 H Lactic Acid Calcium 9.5 Magnesium Total Bilirubin AST Alkaline Phosphatase Total Protein Albumin Urine Color Urine Appearance Urine pH Ur Specific [place] Urine Protein Urine Glucose (UA) Urine Ketones Urine Blood Urine Nitrite Ur Leukocyte Esterase Urine WBC (Auto) Urine RBC (Auto) 02/13/19 02/13/19 02/13/19 04:11 04:11 04:15 WBC 4.6 RBC 3.51 L Hgb 11.3 L Hct 35.3 L MCV 101 H MCH 32.3 MCHC 32.1 RDW 16.6 H Plt Count 266 Seg Neutrophils % Carbonic Acid HCO3/H2CO3 Ratio ABG pH ABG pCO2 ABG pO2 ABG HCO3 ABG O2 Saturation ABG Base Excess VBG pH VBG pCO2 VBG HCO3 VBG Base Excess FiO2 Sodium 139.1 Potassium 5.9 H Chloride 97 L Carbon Dioxide 37 H Anion Gap 5 BUN 31 H Creatinine 1.75 H Est GFR ( Amer) 36 L Glucose 154 H Lactic Acid Calcium 9.5 Magnesium 2.5 H Total Bilirubin 0.4 AST 41 H Alkaline Phosphatase 58 Total Protein 7.3 Albumin 3.9 Urine Color YELLOW Urine Appearance SLIGHTLY-CLOUDY Urine pH 5.0 Ur Specific [place] 1.011 Urine Protein 30 H Urine Glucose (UA) NEGATIVE Urine Ketones NEGATIVE Urine Blood NEGATIVE Urine Nitrite NEGATIVE Ur Leukocyte Esterase NEGATIVE Urine WBC (Auto) 0 Urine RBC (Auto) 1 02/13/19 02/13/19 02/13/19 08:38 08:52 12:51 WBC RBC Hgb Hct MCV MCH MCHC RDW Plt Count Seg Neutrophils % Carbonic Acid 2.98 H HCO3/H2CO3 Ratio 11:1 ABG pH 7.16 L* ABG pCO2 99.0 H* ABG pO2 117.6 H ABG HCO3 34.4 H ABG O2 Saturation 96.8 ABG Base Excess 3.1 VBG pH 7.30 VBG pCO2 75.6 H* VBG HCO3 36.0 H VBG Base Excess 7.9 FiO2 3L Sodium Potassium Chloride Carbon Dioxide Anion Gap BUN Creatinine Est GFR ( Amer) Glucose Lactic Acid 1.0 Calcium Magnesium Total Bilirubin AST Alkaline Phosphatase Total Protein Albumin Urine Color Urine Appearance Urine pH Ur Specific [place] Urine Protein Urine Glucose (UA) Urine Ketones Urine Blood Urine Nitrite Ur Leukocyte Esterase Urine WBC (Auto) Urine RBC (Auto) 02/12/19 02/12/19 02/12/19 18:46 18:46 18:46 Creatine Kinase 64 CK-MB (CK-2) 2.93 Troponin I < 0.012 NT-Pro-B Natriuret Pep [id number] H 02/13/19 02/13/19 04:11 04:11 Creatine Kinase 50 CK-MB (CK-2) 3.58 Troponin I < 0.012 NT-Pro-B Natriuret Pep [id number] H Impressions: Chest Ultrasound 02/12/19 17:35 IMPRESSION: No pleural effusions. Chest X-Ray 02/13/19 00:00 IMPRESSION: Cardiomegaly and pulmonary vascular prominence. No pulmonary edema or pleural effusions Assessment & Plan - Time Time Spent: 50 to 70 Minutes Medications reviewed and adjusted accordingly: Yes Anticipated discharge: Other Within: Other - Inpatient Certification Based on my medical assessment, after consideration of the patient's comorbidities, presenting symptoms, or acuity I expect that the services needed warrant INPATIENT care.: Yes I certify that my determination is in accordance with my understanding of Medicare's requirements for reasonable and necessary INPATIENT services [42 CFR 412.3e].: Yes Medical Necessity: Need Close Monitoring Due to Risk of Patient Decompensation, Need For Continuous Telemetry Monitoring, Need for Nebulizer Therapy and Monitoring of Response, Need for IV Antibiotics Post Hospital Care: D/C Software Applications 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 Baker Discussed with the Dr. Moore
--- NOTE | 2019-02-13 15:37 | CRITICAL CARE ADMISSION REPORT ---
HPI Date:: 02/13/19 Time:: 10:00 Reason for ICU Reason:: Decompensated COPD. Hypercarbic respiratory failure. HPI: Patient is a 63-year-old black female with a history of Oxygen dependent COPD presented to ED with worsening shortness of breath. Time of onset is difficult to ascertain but appears to be over the last 2-4 days. She was also seen in the emergency department a few weeks ago and started on antibiotics and steroids. She has not taken those in about a week now. I was called by the patient's primary care provider who stated that her hypercarbia had not improved despite her BiPAP. He also stated that she had not been consistently keeping the BiPAP on. She is also seen by the pulmonary [facility] consultant service. Her PCO2 was above 110 with a pH that was low. I responded to the IMCU to evaluate the patient. As will be noted and her physical exam she did have a slight tremor of her arms which abated when purposeful movements were carried out. She had difficulty speaking because of the BiPAP and her altered mental state but was able to attempt to speak. Noted that her BiPAP settings were inspiratory pressure of 16 and expiratory pressure of 10 with oxygen saturations that were high and a PO2 that was high. I immediately decrease the PEEP with an improvement in her minute ventilation and tidal volume. Because of the decompensation and the concerned that she may not tolerate BiPAP she was brought to the ICU. The ICU she was placed on different BiPAP settings. They repeat venous blood gas showed an improvement in her pH and her PCO2. She was more attentive and awake and was able to give some history however she is a poor historian. Her family confirmed that there is not been any fever or chills. She did feel warm. She has had no sore throat and only a dry cough. She has not been exposed to anybody with flu-like symptoms. She has not had any recent travel outside the [place] nor has she had any long immobilization. She has no swelling of her extremities especially her lower extremities. Question that she has RV dysfunction and failure with an elevation in proBNP. She denies any nausea,vomiting or diarrhea. There is no been no aspiration events. She has no rashes or skin changes. Fevers chills or night sweats. No joint swelling no leg swelling. History obtained from:: Family, some from patient, medical team - Diagnosis/Plan (1) Acute hypercapnic respiratory failure Is this a current diagnosis for this admission?: Yes Plan: Defer to ICU plan is to change BiPAP settings to help improve ventilatory exchange. Change steroids to 40mg every 12h Screen for DVT Patient appears to have pulmonary hypertension and will change her to Norvasc for her hypertension this calcium channel caryn is also effective for reducing pulmonary pressures Keep oxygen saturation 88 to 90% Do not overcorrect pH or PCO2 Check a d-dimer (2) Acute exacerbation of chronic obstructive pulmonary disease (COPD) Is this a current diagnosis for this admission?: Yes Plan: Change to every 12 hour steroids add azithromycin and Rocephin for 48 hours total; unable to check procalcitonin (3) Acute metabolic encephalopathy Is this a current diagnosis for this admission?: Yes Plan: Repeat examination and follow-up after improvement in PCO2 Screen for other toxic metabolic encephalopathies Check ammonia level (4) Acute kidney failure Qualifiers: Acute renal failure type: unspecified Qualified Code(s): N17.9 - Acute kidney failure, unspecified Is this a current diagnosis for this admission?: Yes Plan: Provide a pH balance solution IVF Ultrasound of kidneys and renal vasculature Screen for and watch for vasculitis and/or pulmonary renal syndromes (5) CKD (chronic kidney disease) stage 2, GFR 60-89 ml/min Is this a current diagnosis for this admission?: Yes (6) Oxygen dependent Is this a current diagnosis for this admission?: Yes Plan: Will need work-up for alpha-1 antitrypsin Do not over oxygenate (7) Hyperkalemia Is this a current diagnosis for this admission?: Yes Plan: Provide IV fluids in the form of a pH balance solution. This will be sterile saline with 125 mEq of sodium bicarbonate. Repeat lab work. (8) Elevated brain natriuretic peptide (BNP) level Is this a current diagnosis for this admission?: Yes Plan: Patient's creatinine is elevated which may explain the elevation in proBNP. Will check DVT screen and d-dimer. This does not appear to be an acute pulmonary embolism event and we are unable to check a CT with contrast to rule out PE. And that this is hypercarbic in nature it is more likely related to this. She does have an elevation in her right ventricular size and we will repeat the echo to determine if this BMP is related to this and her respiratory failure. Follow's and treat supportively Past Medical History Cardiac Medical History: Reports: Hypertension Pulmonary Medical History: Reports: Bronchitis, Chronic Obstructive Pulmonary Disease (COPD), Respiratory Failure EENT Medical History: Reports: None Neurological Medical History: Reports: None Endocrine Medical History: Reports: None Renal/ Medical History: Reports: Chronic Kidney Disease Malignancy Medical History: Reports: None GI Medical History: Reports: None Musculoskeltal Medical History: Reports: None Skin Medical History: Reports: None Psychiatric Medical History: Reports: Depression, General Anxiety Disorder Hematology: Reports: None Denies: Sickle Cell Disease Infectious Medical History: Reports: None Past Surgical History Past Surgical History: Reports: Hysterectomy Social/Family History - Social History Lives with: Family Smoking Status: Former Smoker Cigarettes Packs Per Day: 2 Number of Years Smokin Last Time Smoked: 1 year ago Frequency of Alcohol Use: None Hx Recreational Drug Use: No Drugs: None Hx Prescription Drug Abuse: No - Medication/Allergies Home Medications: Alprazolam [Xanax 0.25 mg Tablet] 0.25 mg PO Q12 02/12/19 Buspirone HCl [Buspar 15 mg Tablet] 7.5 mg PO Q12 02/12/19 Cetirizine HCl [Zyrtec 10 mg Tablet] 10 mg PO DAILY 02/12/19 Escitalopram Oxalate [Lexapro 10 mg Tablet] 10 mg PO QHS 02/12/19 Levalbuterol HCl [Levalbuterol Concentrate] 1.25 mg NEB Q8HP PRN 02/12/19 Metoprolol Succinate [Toprol XL 100 mg Tablet] 100 mg PO DAILY 02/12/19 Potassium Chloride [Klor-Con 10 Meq Capsule ER] 10 meq PO Q2D 02/12/19 Spironolactone [Aldactone 25 mg Tablet] 12.5 mg PO DAILY 02/12/19 Allergies/Adverse Reactions: No Known Allergies Allergy (Verified 01/18/18 18:24) Review of Systems ROS unobtainable: Due to mental status Constitutional: PRESENT: as per HPI Eyes: PRESENT: as per HPI Nose, Mouth, and Throat: PRESENT: as per HPI Cardiovascular: PRESENT: as per HPI Respiratory: PRESENT: as per HPI Musculoskeletal: PRESENT: as per HPI Integumentary: PRESENT: as per HPI Neurological: PRESENT: as per HPI Psychiatric: PRESENT: as per HPI Endocrine: PRESENT: as per HPI Hematologic/Lymphatic: PRESENT: as per HPI Allergic/Immunologic: PRESENT: as per HPI Physical Exam Vital Signs: Temp Pulse Resp BP Pulse Ox 97.7 F 114 H 20 116/85 97 02/13/19 11:15 02/13/19 12:32 02/13/19 12:32 02/13/19 11:15 02/13/19 12:32 Intake & Output 02/12/19 02/13/19 02/14/19 06:59 06:59 06:59 Intake Total 600 Balance 600 Weight 76 kg Weight/Height Weight 76 kg Height 5 ft 3 in General appearance: PRESENT: no acute distress, cooperative Exam: Developed well-nourished 63-year-old black female no active distress on BiPAP unable to speak secondary to the BiPAP and slightly lethargic but improved during multiple repeat examinations Head exam: PRESENT: atraumatic, normocephalic Eye exam: PRESENT: conjunctiva pink, EOMI, PERRLA. ABSENT: conjunctival injection, conjunctiva pale, nystagmus, scleral icterus Ear exam: PRESENT: normal external ear exam Mouth exam: PRESENT: dry mucosa, neck supple, tongue midline Teeth exam: PRESENT: poor dentation Neck exam: PRESENT: full ROM. ABSENT: carotid bruit, JVD, meningismus, tenderness, thyromegaly, tracheal deviation Respiratory exam: PRESENT: clear to auscultation bianca, prolonged expiratory phas, unlabored. ABSENT: accessory muscle use, retraction, stridor, wheezes Cardiovascular exam: PRESENT: RRR, +S1, +S2, systolic murmur Vascular exam: PRESENT: normal capillary refill GI/Abdominal exam: PRESENT: normal bowel sounds, soft. ABSENT: ascites, distended, firm, guarding, mass, Keyes's sign, rebound, rigid, tenderness Rectal exam: PRESENT: deferred Extremities exam: ABSENT: calf tenderness, clubbing, pedal edema, +1 edema, +2 edema Musculoskeletal exam: PRESENT: full ROM, normal inspection. ABSENT: dislocation, tenderness Neurological exam: PRESENT: altered - On first examination. Subsuquent-AA&OX3., CN II-XII grossly intact. ABSENT: motor sensory deficit, aphasic Psychiatric exam: PRESENT: appropriate affect. ABSENT: agitated, anxious Skin exam: PRESENT: abrasion, dry, normal color. ABSENT: cyanosis, erythema, intact, jaundice, mottled, petechiae, urticaria, vesicles Laboratory/Radiographs Laboratory Results: 02/13/19 04:11 02/13/19 04:11 02/12/19 02/12/19 02/12/19 18:46 18:46 20:04 WBC Cancelled RBC Cancelled Hgb Cancelled Hct Cancelled MCV Cancelled MCH Cancelled MCHC Cancelled RDW Cancelled Plt Count Cancelled Seg Neutrophils % Cancelled Carbonic Acid HCO3/H2CO3 Ratio ABG pH ABG pCO2 ABG pO2 ABG HCO3 ABG O2 Saturation ABG Base Excess VBG pH 7.14 L* VBG pCO2 117.5 H* VBG HCO3 38.8 H VBG Base Excess 5.9 FiO2 Sodium 137.5 Potassium 5.9 H Chloride 97 L Carbon Dioxide 34 H Anion Gap 7 BUN 35 H Creatinine 1.84 H Est GFR ( Amer) 34 L Glucose 127 H Lactic Acid Calcium 9.5 Magnesium Total Bilirubin 0.6 AST 47 H Alkaline Phosphatase 67 Total Protein 7.1 Albumin 3.9 Urine Color Urine Appearance Urine pH Ur Specific [place] Urine Protein Urine Glucose (UA) Urine Ketones Urine Blood Urine Nitrite Ur Leukocyte Esterase Urine WBC (Auto) Urine RBC (Auto) 02/12/19 02/12/19 02/12/19 20:04 22:17 22:17 WBC 5.9 RBC 3.40 L Hgb 10.9 L Hct 34.3 L MCV 101 H D MCH 32.1 MCHC 31.9 L RDW 16.3 H Plt Count 257 Seg Neutrophils % 83.1 H Carbonic Acid HCO3/H2CO3 Ratio ABG pH ABG pCO2 ABG pO2 ABG HCO3 ABG O2 Saturation ABG Base Excess VBG pH 7.15 L* VBG pCO2 95.2 H* VBG HCO3 32.2 H VBG Base Excess 1.1 FiO2 Sodium 137.4 Potassium 5.3 H Chloride 95 L Carbon Dioxide 37 H Anion Gap 5 BUN 35 H Creatinine 1.86 H Est GFR ( Amer) 33 L Glucose 130 H Lactic Acid Calcium 9.5 Magnesium Total Bilirubin AST Alkaline Phosphatase Total Protein Albumin Urine Color Urine Appearance Urine pH Ur Specific [place] Urine Protein Urine Glucose (UA) Urine Ketones Urine Blood Urine Nitrite Ur Leukocyte Esterase Urine WBC (Auto) Urine RBC (Auto) 02/13/19 02/13/19 02/13/19 04:11 04:11 04:15 WBC 4.6 RBC 3.51 L Hgb 11.3 L Hct 35.3 L MCV 101 H MCH 32.3 MCHC 32.1 RDW 16.6 H Plt Count 266 Seg Neutrophils % Carbonic Acid HCO3/H2CO3 Ratio ABG pH ABG pCO2 ABG pO2 ABG HCO3 ABG O2 Saturation ABG Base Excess VBG pH VBG pCO2 VBG HCO3 VBG Base Excess FiO2 Sodium 139.1 Potassium 5.9 H Chloride 97 L Carbon Dioxide 37 H Anion Gap 5 BUN 31 H Creatinine 1.75 H Est GFR ( Amer) 36 L Glucose 154 H Lactic Acid Calcium 9.5 Magnesium 2.5 H Total Bilirubin 0.4 AST 41 H Alkaline Phosphatase 58 Total Protein 7.3 Albumin 3.9 Urine Color YELLOW Urine Appearance SLIGHTLY-CLOUDY Urine pH 5.0 Ur Specific [place] 1.011 Urine Protein 30 H Urine Glucose (UA) NEGATIVE Urine Ketones NEGATIVE Urine Blood NEGATIVE Urine Nitrite NEGATIVE Ur Leukocyte Esterase NEGATIVE Urine WBC (Auto) 0 Urine RBC (Auto) 1 02/13/19 02/13/19 02/13/19 08:38 08:52 12:51 WBC RBC Hgb Hct MCV MCH MCHC RDW Plt Count Seg Neutrophils % Carbonic Acid 2.98 H HCO3/H2CO3 Ratio 11:1 ABG pH 7.16 L* ABG pCO2 99.0 H* ABG pO2 117.6 H ABG HCO3 34.4 H ABG O2 Saturation 96.8 ABG Base Excess 3.1 VBG pH 7.30 VBG pCO2 75.6 H* VBG HCO3 36.0 H VBG Base Excess 7.9 FiO2 3L Sodium Potassium Chloride Carbon Dioxide Anion Gap BUN Creatinine Est GFR ( Amer) Glucose Lactic Acid 1.0 Calcium Magnesium Total Bilirubin AST Alkaline Phosphatase Total Protein Albumin Urine Color Urine Appearance Urine pH Ur Specific [place] Urine Protein Urine Glucose (UA) Urine Ketones Urine Blood Urine Nitrite Ur Leukocyte Esterase Urine WBC (Auto) Urine RBC (Auto) 02/12/19 02/12/19 02/12/19 18:46 18:46 18:46 Creatine Kinase 64 CK-MB (CK-2) 2.93 Troponin I < 0.012 NT-Pro-B Natriuret Pep [id number] H 02/13/19 02/13/19 04:11 04:11 Creatine Kinase 50 CK-MB (CK-2) 3.58 Troponin I < 0.012 NT-Pro-B Natriuret Pep [id number] H Impressions: Chest Ultrasound 02/12/19 17:35 IMPRESSION: No pleural effusions. Chest X-Ray 02/13/19 00:00 IMPRESSION: Cardiomegaly and pulmonary vascular prominence. No pulmonary edema or pleural effusions EKG: NSR, RV -Respiratory failure pattern with large S-wave in I. Minimal Q in III with T-wave inversion.No previous to compare. Echocardiogram in 2018 showed right ventricular dilatation Critical Time Critical Time (minutes): 75 -: The care of a critically ill patient is dynamic. This note represents a static moment in the admission process. orders and treatments may be given simulataneously and urgentl, and time is not collections representative of the treatment process. This patient requires Critical Care secondary to life threating organ or limb dysfunction. Without the need for Critical Care services, the patient is at risk for increasid mortality and morbidity.
[2019-02-13 16:12] LABS: ANION GAP 6 (5-19); BLOOD UREA NITROGEN 30 mg/dL (7-20); CALCIUM 9.8 mg/dL (8.4-10.2); CARBON DIOXIDE 38 mmol/L (22-30); CHLORIDE 95 mmol/L (98-107); GLUCOSE 153 mg/dL (75-110); PHOSPHORUS 3.2 mg/dL (2.5-4.5); POTASSIUM 5.7 mmol/L (3.6-5.0)
[2019-02-13] MEDS: CEFEPIME 1 GM/D5W RTU 1 GM/50 ML RTUPB IV SCH (16:26)
--- NOTE | 2019-02-13 17:43 | XCELERA REPORT ---
[address] [address] Transthoracic Echocardiogram Report Name: CECILE BERRIOS Age: 63 yrs Gender: Female : 1955 Patient Status: Inpatient Patient Location: ICU^602^A Study Date: 02/13/2019 04:12 PM Height: 63 in Weight: 167 lb BSA: 1.8 m2 Procedure: A complete two-dimensional transthoracic echocardiogram was performed (2D, M-mode, spectral and color flow Doppler). The study was technically adequate with some images being suboptimal in quality. Reason For Study: CHF Ordering Physician: JULIETA REYNOLDS Performed By: Brad Patel Interpretation Summary The left ventricular ejection fraction is within normal limits. The right ventricle is moderate to severely dilated. The right ventricular systolic function is mildly reduced. The right ventricle appears to be hypertrophied There is servere pulmonary hypertension by echo Best estimated right ventricular systolic pressure is elevated at >60mmHg. Doppler measurements suggest pseudonormalized left ventricular relaxation, which is associated with grade II/IV or mild to moderate diastolic dysfunction There is mild concentric left ventricular hypertrophy. The left ventricle is grossly normal size. Wall motion cannot be accurately commented on, but no definite regional wall motion abnormalities noted. The right atrium is moderate to severely dilated. The left atrial size is normal. There is a trace amount of mitral regurgitation There is no mitral valve stenosis. There is a moderate amount of tricuspid regurgitation There is no aortic valve stenosis No aortic regurgitation is present. There is no pericardial effusion. MMode/2D Measurements & Calculations RVDd: 4.7 cm LVIDd: 3.6 cm FS: 45.8 % Ao root diam: 2.5 cm IVSd: 1.4 cm LVIDs: 1.9 cm EDV(Teich): 53.9 ml Ao root area: 5.1 cm2 LVPWd: 1.4 cm ESV(Teich): 11.8 ml LA dimension: 3.4 cm EF(Teich): 78.1 % Doppler Measurements & Calculations MV E max praveena: MV P1/2t max praveena: Ao V2 max: LV V1 max P.5 cm/sec 80.2 cm/sec 113.4 cm/sec 4.0 mmHg MV A max praveena: MV P1/2t: 71.2 msec Ao max PG: LV V1 max: 109.1 cm/sec MVA(P1/2t): 3.1 cm2 5.1 mmHg 99.7 cm/sec MV E/A: 0.71 MV dec slope: 330.1 cm/sec2 MV dec time: 0.22 sec PA V2 max: PI end-d praveena: TR max praveena: MV P1/2t-pr_phl: 79.0 cm/sec 153.8 cm/sec 432.5 cm/sec 71.2 msec PA max P.5 mmHg TR max P.8 mmHg Left Ventricle The left ventricle is grossly normal size. There is mild concentric left ventricular hypertrophy. The left ventricular ejection fraction is within normal limits. Doppler measurements suggest pseudonormalized left ventricular relaxation, which is associated with grade II/IV or mild to moderate diastolic dysfunction. Wall motion cannot be accurately commented on, but no definite regional wall motion abnormalities noted. Right Ventricle The right ventricle is moderate to severely dilated. The right ventricle appears to be hypertrophied. The right ventricular systolic function is mildly reduced. Atria The right atrium is moderate to severely dilated. The left atrial size is normal. Interarterial septum not well visualized and not well dopplered. Cannot comment on ASD/PFO presence. Mitral Valve The mitral valve is not well visualized. There is no mitral valve stenosis. There is a trace amount of mitral regurgitation. Aortic Valve The aortic valve is not well visualized secondary to technical limitations. There is no aortic valve stenosis. No aortic regurgitation is present. Tricuspid Valve The tricuspid valve is not well visualized, but is grossly normal. There is no tricuspid stenosis. There is a moderate amount of tricuspid regurgitation. There is servere pulmonary hypertension by echo. Best estimated right ventricular systolic pressure is elevated at >60mmHg. Pulmonic Valve The pulmonic valve is not well visualized. Great Vessels The aortic root is not well visualized but is probably normal size. The inferior vena cava appeared normal and decreased < 50% with respiration (RAP 10-15 mmHg). Effusions There is no pericardial effusion. : JULIETA REYNOLDS Shyamal
--- NOTE | 2019-02-13 18:02 | PDOC PROGRESS REPORT ---
Subjective Progress Note for:: 02/13/19 Subjective:: Patient was admitted with shortness of breath. She was noted to have severe CO2 retention and was subsequently transferred to the unit. Patient was noted to have acute on chronic respiratory failure. Patient on questioning denied any chest pain. Reason For Visit: RESPIRATORY DISTRESS,COPD ACUTE,EX Physical Exam Vital Signs: Temp Pulse Resp BP Pulse Ox 97.7 F 109 H 22 H 116/85 94 02/13/19 11:15 02/13/19 16:53 02/13/19 16:53 02/13/19 11:15 02/13/19 16:53 Intake & Output 02/12/19 02/13/19 02/14/19 06:59 06:59 06:59 Intake Total 600 Output Total 250 Balance 600 -250 Weight 76 kg Exam: GENERAL: well-nourished and in no acute distress. Alert and oriented x3. Upper extremity asterixis noted suggestive of CO2 retention. HEAD: Atraumatic, normocephalic. EYES: MICHELLE, sclera anicteric, conjunctiva are normal. ENT: Moist mucous membranes. No oral ulcerations or bleeding gums noted. No obvious ear, nose or throat abnormalities noted. NECK: supple without lymphadenopathy. Trachea is central. No cervical or axillary lymphadenopathy noted. Carotids are 2+, JVD WNL LUNGS: Bibasilar coarse crackles and coarse rhonchi noted. No significant dullness noted on percussion. CHEST: Palpation of the chest wall shows no significant chest wall tenderness. HEART: Lynn SAFETY AIDE, No PSH, 1/6 BJ aortic area, 1/6 guevara systolic murmur mitral area, no rubs, no gallops. ABDOMEN: Soft, no significant tenderness appreciated, normoactive bowel sounds. No guarding, no rebound. No rigidity noted . No masses appreciated. EXTREMITIES: Pedal pulses are 1-2+, no calf tenderness noted. No clubbing or cyanosis. Trace to 1+ pedal edema noted NEUROLOGICAL: Focused neurological exam showed no significant neurologic deficit. Normal speech, no focal weakness appreciated. PSYCH: Normal mood, normal affect. Judgment and insight within normal limits. SKIN: No significant ecchymosis, skin is noted to be warm. MUSCULOSKELETAL EXAM: No significant acute joint swelling noted. Results Laboratory Results: 02/13/19 04:11 02/13/19 15:41 02/12/19 02/12/19 02/12/19 18:46 18:46 20:04 WBC Cancelled RBC Cancelled Hgb Cancelled Hct Cancelled MCV Cancelled MCH Cancelled MCHC Cancelled RDW Cancelled Plt Count Cancelled Seg Neutrophils % Cancelled Carbonic Acid HCO3/H2CO3 Ratio ABG pH ABG pCO2 ABG pO2 ABG HCO3 ABG O2 Saturation ABG Base Excess VBG pH 7.14 L* VBG pCO2 117.5 H* VBG HCO3 38.8 H VBG Base Excess 5.9 FiO2 Sodium 137.5 Potassium 5.9 H Chloride 97 L Carbon Dioxide 34 H Anion Gap 7 BUN 35 H Creatinine 1.84 H Est GFR ( Amer) 34 L Glucose 127 H Lactic Acid Calcium 9.5 Phosphorus Magnesium Total Bilirubin 0.6 AST 47 H Alkaline Phosphatase 67 Total Protein 7.1 Albumin 3.9 Urine Color Urine Appearance Urine pH Ur Specific Gable Urine Protein Urine Glucose (UA) Urine Ketones Urine Blood Urine Nitrite Ur Leukocyte Esterase Urine WBC (Auto) Urine RBC (Auto) 02/12/19 02/12/19 02/12/19 20:04 22:17 22:17 WBC 5.9 RBC 3.40 L Hgb 10.9 L Hct 34.3 L MCV 101 H D MCH 32.1 MCHC 31.9 L RDW 16.3 H Plt Count 257 Seg Neutrophils % 83.1 H Carbonic Acid HCO3/H2CO3 Ratio ABG pH ABG pCO2 ABG pO2 ABG HCO3 ABG O2 Saturation ABG Base Excess VBG pH 7.15 L* VBG pCO2 95.2 H* VBG HCO3 32.2 H VBG Base Excess 1.1 FiO2 Sodium 137.4 Potassium 5.3 H Chloride 95 L Carbon Dioxide 37 H Anion Gap 5 BUN 35 H Creatinine 1.86 H Est GFR ( Amer) 33 L Glucose 130 H Lactic Acid Calcium 9.5 Phosphorus Magnesium Total Bilirubin AST Alkaline Phosphatase Total Protein Albumin Urine Color Urine Appearance Urine pH Ur Specific Gable Urine Protein Urine Glucose (UA) Urine Ketones Urine Blood Urine Nitrite Ur Leukocyte Esterase Urine WBC (Auto) Urine RBC (Auto) 02/13/19 02/13/19 02/13/19 04:11 04:11 04:15 WBC 4.6 RBC 3.51 L Hgb 11.3 L Hct 35.3 L MCV 101 H MCH 32.3 MCHC 32.1 RDW 16.6 H Plt Count 266 Seg Neutrophils % Carbonic Acid HCO3/H2CO3 Ratio ABG pH ABG pCO2 ABG pO2 ABG HCO3 ABG O2 Saturation ABG Base Excess VBG pH VBG pCO2 VBG HCO3 VBG Base Excess FiO2 Sodium 139.1 Potassium 5.9 H Chloride 97 L Carbon Dioxide 37 H Anion Gap 5 BUN 31 H Creatinine 1.75 H Est GFR ( Amer) 36 L Glucose 154 H Lactic Acid Calcium 9.5 Phosphorus Magnesium 2.5 H Total Bilirubin 0.4 AST 41 H Alkaline Phosphatase 58 Total Protein 7.3 Albumin 3.9 Urine Color YELLOW Urine Appearance SLIGHTLY-CLOUDY Urine pH 5.0 Ur Specific G[place] 1.011 Urine Protein 30 H Urine Glucose (UA) NEGATIVE Urine Ketones NEGATIVE Urine Blood NEGATIVE Urine Nitrite NEGATIVE Ur Leukocyte Esterase NEGATIVE Urine WBC (Auto) 0 Urine RBC (Auto) 1 02/13/19 02/13/19 02/13/19 08:38 08:52 12:51 WBC RBC Hgb Hct MCV MCH MCHC RDW Plt Count Seg Neutrophils % Carbonic Acid 2.98 H HCO3/H2CO3 Ratio 11:1 ABG pH 7.16 L* ABG pCO2 99.0 H* ABG pO2 117.6 H ABG HCO3 34.4 H ABG O2 Saturation 96.8 ABG Base Excess 3.1 VBG pH 7.30 VBG pCO2 75.6 H* VBG HCO3 36.0 H VBG Base Excess 7.9 FiO2 3L Sodium Potassium Chloride Carbon Dioxide Anion Gap BUN Creatinine Est GFR ( Amer) Glucose Lactic Acid 1.0 Calcium Phosphorus Magnesium Total Bilirubin AST Alkaline Phosphatase Total Protein Albumin Urine Color Urine Appearance Urine pH Ur Specific Gable Urine Protein Urine Glucose (UA) Urine Ketones Urine Blood Urine Nitrite Ur Leukocyte Esterase Urine WBC (Auto) Urine RBC (Auto) 02/13/19 15:41 WBC RBC Hgb Hct MCV MCH MCHC RDW Plt Count Seg Neutrophils % Carbonic Acid HCO3/H2CO3 Ratio ABG pH ABG pCO2 ABG pO2 ABG HCO3 ABG O2 Saturation ABG Base Excess VBG pH VBG pCO2 VBG HCO3 VBG Base Excess FiO2 Sodium 138.7 Potassium 5.7 H Chloride 95 L Carbon Dioxide 38 H Anion Gap 6 BUN 30 H Creatinine 1.80 H Est GFR ( Amer) 35 L Glucose 153 H Lactic Acid Calcium 9.8 Phosphorus 3.2 Magnesium 2.2 Total Bilirubin AST Alkaline Phosphatase Total Protein Albumin Urine Color Urine Appearance Urine pH Ur Specific Gable Urine Protein Urine Glucose (UA) Urine Ketones Urine Blood Urine Nitrite Ur Leukocyte Esterase Urine WBC (Auto) Urine RBC (Auto) 02/12/19 02/12/19 02/12/19 18:46 18:46 18:46 Creatine Kinase 64 CK-MB (CK-2) 2.93 Troponin I < 0.012 NT-Pro-B Natriuret Pep [id number] H 02/13/19 02/13/19 04:11 04:11 Creatine Kinase 50 CK-MB (CK-2) 3.58 Troponin I < 0.012 NT-Pro-B Natriuret Pep [id number] H EKG Comments: Sinus rhythm, probable RVH, no acute ST-T wave changes are noted Impressions: Chest Ultrasound 02/12/19 17:35 IMPRESSION: No pleural effusions. Chest X-Ray 02/13/19 00:00 IMPRESSION: Cardiomegaly and pulmonary vascular prominence. No pulmonary edema or pleural effusions Assessment & Plan - Diagnosis (1) Acute and chronic respiratory failure Qualifiers: Respiratory failure complication: hypoxia and hypercapnia Qualified Code(s): J96.21 - Acute and chronic respiratory failure with hypoxia; J96.22 - Acute and chronic respiratory failure with hypercapnia Is this a current diagnosis for this admission?: Yes (2) Acute exacerbation of chronic obstructive pulmonary disease (COPD) Is this a current diagnosis for this admission?: Yes (3) COPD exacerbation Is this a current diagnosis for this admission?: Yes (4) CHF (congestive heart failure) Qualifiers: Heart failure type: right-sided Heart failure chronicity: acute on chronic Qualified Code(s): I50.813 - Acute on chronic right heart failure Is this a current diagnosis for this admission?: Yes - Notes Notes: Patient noted to be critically sick with acute on chronic respiratory failure. Patient seems to have right-sided heart failure. Patient has mild JVP elevation and mild pedal edema. Chest x-ray does not suggest significant left heart failure. Patient does have marked elevation of PCO2 and respiratory acidosis. 2D echo showed severely dilated right ventricle along with severe pulmonary hypertension. At this point recommend ruling out pulmonary embolism, aggressive treatment of COPD, continue with noninvasive ventilation. May consider tertiary care transfer if patient deteriorates. Recommend empiric chronic anticoagulation with new oral anticoagulant. Recommend low-dose diuretic therapy as tolerated by blood pressure. Aggressive pulmonary toilet and management of COPD. May consider this sildenafil therapy. Feel that patient mostly has pulmonary related problems. May consider pulmonary evaluation. - Time Time with patient: Greater than 35 minutes Medications reviewed and adjusted accordingly: Yes
--- NOTE | 2019-02-13 19:22 | RADIOLOGY REPORT (SQ) ---
EXAM DESCRIPTION: U/S RETROPERITON (RENAL/AORTA) COMPLETED DATE/TIME: 02/13/2019 7:03 pm REASON FOR STUDY: acute renal failure COMPARISON: 10/04/2018 TECHNIQUE: Dynamic and static grayscale images acquired of the kidneys and bladder and recorded on P ACS. Additional selected color Doppler and spectral images recorded. LIMITATIONS: None. FINDINGS: RIGHT KIDNEY: Normal size, 8.9 cm. Increased echogenicity. No solid or suspicious masses. No hydronephrosis. No calcifications. LEFT KIDNEY: Normal size, 9.5 cm. Increased echogenicity. No solid or suspicious masses. No hydrone phrosis. No calcifications. BLADDER: Bladder was empty and therefore not evaluated. OTHER FINDINGS: No other significant finding. IMPRESSION: There are chronic appearing changes in the kidneys with no acute finding. TECHNICAL DOCUMENTATION: JOB ID: [id number] [employer]- All Rights Reserved Reading location - IP/workstation name: [email or web address]
[2019-02-13] MEDS ORDERED: LEVOFLOXACIN 500 MG/D5W RTU 500 MG/100 ML RTUPB IV SCH (22:00)
[2019-02-13] MEDS: ALPRAZOLAM 0.5 MG TABLET SL PRN (22:06)
[2019-02-13] MEDS: ESCITALOPRAM OXALATE 10 MG TABLET PO SCH (22:06)
[2019-02-13 23:00] LABS: UR PRO/CREAT RATIO RESULT 0.5 mg/mg (0.0-0.2); URINE CREATININE 79.5 mg/dL (15-278); URINE PROTEIN 37.7 mg/dL (<12)
[2019-02-14] MEDS: IPRATROPIUM/ALBUTEROL 0.5-2.5 MG/3 ML AMPUL NEB SCH ×4 (01:56→19:51)
[2019-02-14 04:59] LABS: ALBUMIN 3.5 g/dL (3.5-5.0); ALKALINE PHOSPHATASE 53 U/L (38-126); ASPARTATE AMINO TRANSFERASE 26 U/L (14-36); BILIRUBIN,DIRECT 0.1 mg/dL (0.0-0.4); BILIRUBIN,TOTAL 0.3 mg/dL (0.2-1.3); PHOSPHORUS 3.7 mg/dL (2.5-4.5); TOTAL PROTEIN 6.3 g/dL (6.3-8.2)
[2019-02-14 05:15] LABS: APPEARANCE,URINE SLIGHTLY-CLOUDY; BILIRUBIN,URINE NEGATIVE (NEGATIVE); COLOR,URINE YELLOW; GLUCOSE, URINE NEGATIVE (NEGATIVE); KETONES,URINE NEGATIVE (NEGATIVE); LEUKOCYTE ESTERASE,URINE NEGATIVE (NEGATIVE); NITRITE,URINE NEGATIVE (NEGATIVE); PROTEIN,URINE 30 mg/dL (NEGATIVE); URINE SPECIFIC GRAVITY 1.021; UROBILINOGEN,URINE NEGATIVE mg/dL (<2.0)
[2019-02-14 05:16] LABS: FREE T4 (FREE THYROXINE) 0.86 ng/dL (0.78-2.19)
[2019-02-14 05:30] LABS: THYROID STIMULATING HORMONE 0.22 uIU/mL (0.47-4.68)
[2019-02-14 05:36] LABS: URINE CREATININE 196.8 mg/dL (15-278); URINE PROTEIN 42.3 mg/dL (<12)
[2019-02-14 05:41] LABS: HEMOGLOBIN 10.3 g/dL (12.0-15.5); MEAN CORPUSCULAR HEMOGLOBIN 31.6 pg (27.0-33.4); MEAN CORPUSCULAR HGB CONC 31.2 g/dL (32.0-36.0); MEAN CORPUSCULAR VOLUME 101 fl (80-97); PLATELET COUNT 257 10^3/uL (150-450); RED BLOOD COUNT 3.26 10^6/uL (3.72-5.28); RED CELL DISTRIBUTION WIDTH 16.5 % (11.5-14.0)
[2019-02-14 05:42] LABS: WHITE BLOOD COUNT 10.5 10^3/uL (4.0-10.5)
[2019-02-14] MEDS: HEPARIN SOD (PORCINE) 5,000 UNIT/ML 1 ML VIAL SUBCUT SCH ×3 (06:19→21:42)
[2019-02-14] MEDS: BUDESONIDE NEB 0.5 MG/2 ML AMPUL NEB SCH ×2 (07:50→19:51)
[2019-02-14] MEDS ORDERED: INFLUENZA QUAD (6MOS+) 2019-20 VAC 0.5 ML SYR IM ONE (08:00)
--- NOTE | 2019-02-14 08:33 | XCELERA REPORT ---
[address] [facility] [address] Lower Extremity Venous Evaluation Procedure: Color flow and duplex imaging bilaterally of the veins of the lower extremities as well as the Common Femoral veins. Right Sided Venous Evaluation Normal vessel filling wall to wall, compression and augmentation as well as Colour flow down to the infrageniculate veins. Left Sided Venous Evaluation Normal vessel filling wall to wall, compression and augmentation as well as Colour flow down to the infrageniculate veins. Interpretation Summary No duplex evidence of DVT or obstruction in the bilateral lower extremities. Name: CECILE BERRIOS Age: 63 yrs Gender: Female : 1955 Patient Status: [facility] Study Date: 02/13/2019 03:42 PM Reason For Study: hypoxia Ordering Physician: JENNIFER REGALADO Performed By: Brad Patel : JENNIFER REGALADO > Mukesh Regalado
[2019-02-14] MEDS ORDERED: WATER FOR INJECTION,STERILE 1,000 ML with SODIUM BICARBONATE 125 MEQ IV PRN ×2 (09:41)
[2019-02-14] MEDS: METHYLPREDNISOLONE INJ 40 MG/1 ML SDV IV SCH ×2 (10:22→21:42)
[2019-02-14] MEDS: CETIRIZINE 10 MG TABLET PO SCH (10:22)
[2019-02-14] MEDS: AMLODIPINE BESYLATE 5 MG TABLET PO SCH (10:23)
[2019-02-14 11:48] LABS: VENOUS BLOOD BASE EXCESS 9.6 mmol/L; VENOUS BLOOD HCO3 42.3 mmol/L (20-32)
[2019-02-14 11:50] LABS: VENOUS BLOOD PCO2 118.6 mmHg (35-63); VENOUS BLOOD PH 7.17 (7.30-7.42)
[2019-02-14 12:03] LABS: BLOOD UREA NITROGEN 30 mg/dL (7-20); CALCIUM 9.7 mg/dL (8.4-10.2); CHLORIDE 90 mmol/L (98-107); GLUCOSE 137 mg/dL (75-110); PHOSPHORUS 4.1 mg/dL (2.5-4.5); POTASSIUM 5.6 mmol/L (3.6-5.0)
[2019-02-14 12:14] LABS: ANION GAP 3 (5-19)
[2019-02-14 12:16] LABS: CARBON DIOXIDE 45 mmol/L (22-30)
[2019-02-14] MEDS: ALPRAZOLAM 0.5 MG TABLET SL PRN ×2 (12:42→21:42)
[2019-02-14] MEDS: AZITHROMYCIN 500 MG in DEXTROSE 5%-WATER 250 ML IV SCH (15:05)
[2019-02-14 17:26] LABS: VENOUS BLOOD BASE EXCESS 15.8 mmol/L; VENOUS BLOOD HCO3 44.8 mmol/L (20-32); VENOUS BLOOD PH 7.34 (7.30-7.42)
[2019-02-14 17:28] LABS: VENOUS BLOOD PCO2 85.1 mmHg (35-63)
--- NOTE | 2019-02-14 19:27 | PDOC PROGRESS REPORT ---
Subjective Subjective:: Patient admitted to the ICU from stepdown unit yesterday. She responded well to BiPAP therapy with a reduction in PEEP. She had a echocardiogram done which shows significant right ventricular dilatation right atrial dilatation consistent with severe pulmonary hypertension. Estimated pressures were greater than 60 mmHg. She intermittently refuses BiPAP. Today she required it because of somnolence. BiPAP last night not consistently left on. Had a lengthy discussion with specialist at [facility] regarding her pulmonary hypertension. They are in agreement that we should wait until this acute exacerbation is relieved and have her see them for subspecialty support. I am concerned that her pulmonary pressures are out of proportion to what would be expected with routine COPD and hypoxic related lung disease. Recommendations for these types of patients are for right heart cath to determine if pressures are out of proportion to their lung disease. A VQ scan may also be a viable option to look at functionality. Patient is quite anxious normally at baseline and has been anxious while here. This is not uncharacteristic for her. We are awaiting family to discuss her disease state and options. Reason For Visit: RESPIRATORY DISTRESS,COPD ACUTE,EX Physical Exam Vital Signs: Temp Pulse Resp BP Pulse Ox 97.8 F 81 17 114/63 91 L 02/14/19 12:00 02/14/19 12:00 02/14/19 12:00 02/14/19 12:00 02/14/19 12:00 Intake & Output 02/13/19 02/14/19 02/15/19 06:59 06:59 06:59 Intake Total 600 530 Output Total 500 150 Balance 600 30 -150 Weight 76 kg 63.8 kg General appearance: PRESENT: no acute distress, disheveled, obese Head exam: PRESENT: atraumatic, normocephalic Eye exam: PRESENT: conjunctiva pink, EOMI, PERRLA. ABSENT: conjunctival injection, nystagmus, scleral icterus Mouth exam: PRESENT: dry mucosa, neck supple Teeth exam: PRESENT: poor dentation Neck exam: ABSENT: carotid bruit, JVD, lymphadenopathy, meningismus, tenderness, thyromegaly Respiratory exam: PRESENT: clear to auscultation bianca, decreased breath sounds. ABSENT: accessory muscle use, unlabored Murmur grade: 3 Vascular exam: PRESENT: normal capillary refill GI/Abdominal exam: PRESENT: normal bowel sounds, soft. ABSENT: ascites, distended, firm, guarding, mass, Keyes's sign, rebound, rigid, tenderness Extremities exam: PRESENT: pedal edema. ABSENT: calf tenderness, joint swelling Musculoskeletal exam: ABSENT: deformity, dislocation, tenderness Neurological exam: PRESENT: awake, oriented to person, oriented to place, oriented to time, CN II-XII grossly intact. ABSENT: oriented to situation, motor sensory deficit, aphasic Psychiatric exam: PRESENT: unusual affect. ABSENT: agitated Skin exam: PRESENT: intact. ABSENT: dry, erythema, mottled, petechiae, urticaria, vesicles Results Laboratory Results: 02/14/19 04:24 02/14/19 11:25 02/13/19 02/13/19 02/14/19 12:51 15:41 04:00 WBC RBC Hgb Hct MCV MCH MCHC RDW Plt Count VBG pH 7.30 VBG pCO2 75.6 H* VBG HCO3 36.0 H VBG Base Excess 7.9 Sodium 138.7 Potassium 5.7 H Chloride 95 L Carbon Dioxide 38 H Anion Gap 6 BUN 30 H Creatinine 1.80 H Est GFR ( Amer) 35 L Glucose 153 H Calcium 9.8 Phosphorus 3.2 Magnesium 2.2 Total Bilirubin AST Alkaline Phosphatase Ammonia Total Protein Albumin TSH Free T4 Urine Color YELLOW Urine Appearance SLIGHTLY-CLOUDY Urine pH 5.0 Ur Specific [place] 1.021 Urine Protein 30 H Urine Glucose (UA) NEGATIVE Urine Ketones NEGATIVE Urine Blood NEGATIVE Urine Nitrite NEGATIVE Ur Leukocyte Esterase NEGATIVE Urine WBC (Auto) 2 Urine RBC (Auto) 0 02/14/19 02/14/19 02/14/19 04:24 04:24 04:24 WBC 10.5 D RBC 3.26 L Hgb 10.3 L Hct 33.0 L MCV 101 H MCH 31.6 MCHC 31.2 L RDW 16.5 H Plt Count 257 VBG pH VBG pCO2 VBG HCO3 VBG Base Excess Sodium Potassium Chloride Carbon Dioxide Anion Gap BUN Creatinine Est GFR ( Amer) Glucose Calcium Phosphorus 3.7 Magnesium 2.3 Total Bilirubin 0.3 AST 26 Alkaline Phosphatase 53 Ammonia Total Protein 6.3 Albumin 3.5 TSH 0.22 L Free T4 0.86 Urine Color Urine Appearance Urine pH Ur Specific [place] Urine Protein Urine Glucose (UA) Urine Ketones Urine Blood Urine Nitrite Ur Leukocyte Esterase Urine WBC (Auto) Urine RBC (Auto) 02/14/19 02/14/19 02/14/19 06:45 11:25 11:25 WBC RBC Hgb Hct MCV MCH MCHC RDW Plt Count VBG pH 7.17 L* VBG pCO2 118.6 H* VBG HCO3 42.3 H VBG Base Excess 9.6 Sodium 138.3 Potassium 5.6 H Chloride 90 L Carbon Dioxide 45 H* Anion Gap 3 L BUN 30 H Creatinine 1.70 H Est GFR ( Amer) 37 L Glucose 137 H Calcium 9.7 Phosphorus 4.1 Magnesium 2.2 Total Bilirubin AST Alkaline Phosphatase Ammonia 13.4 Total Protein Albumin TSH Free T4 Urine Color Urine Appearance Urine pH Ur Specific [place] Urine Protein Urine Glucose (UA) Urine Ketones Urine Blood Urine Nitrite Ur Leukocyte Esterase Urine WBC (Auto) Urine RBC (Auto) 02/12/19 02/12/19 02/12/19 18:46 18:46 18:46 Creatine Kinase 64 CK-MB (CK-2) 2.93 Troponin I < 0.012 NT-Pro-B Natriuret Pep [id number] H 02/13/19 02/13/19 04:11 04:11 Creatine Kinase 50 CK-MB (CK-2) 3.58 Troponin I < 0.012 NT-Pro-B Natriuret Pep [id number] H Impressions: Chest Ultrasound 02/12/19 17:35 IMPRESSION: No pleural effusions. Chest X-Ray 02/13/19 00:00 IMPRESSION: Cardiomegaly and pulmonary vascular prominence. No pulmonary edema or pleural effusions Renal Ultrasound 02/13/19 00:00 IMPRESSION: There are chronic appearing changes in the kidneys with no acute finding. Status: Image reviewed by hi - Echocardiogram Assessment & Plan - Diagnosis (1) Acute hypercapnic respiratory failure Is this a current diagnosis for this admission?: Yes (2) Acute exacerbation of chronic obstructive pulmonary disease (COPD) Is this a current diagnosis for this admission?: Yes (3) Acute metabolic encephalopathy Is this a current diagnosis for this admission?: Yes (4) Acute kidney failure Qualifiers: Acute renal failure type: unspecified Qualified Code(s): N17.9 - Acute kidney failure, unspecified Is this a current diagnosis for this admission?: Yes (5) CKD (chronic kidney disease) stage 2, GFR 60-89 ml/min Is this a current diagnosis for this admission?: Yes (6) Oxygen dependent Is this a current diagnosis for this admission?: Yes (7) Hyperkalemia Is this a current diagnosis for this admission?: Yes (8) Elevated brain natriuretic peptide (BNP) level Is this a current diagnosis for this admission?: Yes - Time Time Spent with patient: 35 or more minutes Total Critical Time (Minutes): 45 Smoking Cessation Education: 3 to 10 minutes Medications reviewed and adjusted accordingly: Yes Anticipated discharge: Acute Rehab Within: within 48 hours Disposition: To remain in ICU - Plan Summary Plan Summary: Patient admitted to the ICU from stepdown unit yesterday. She responded well to BiPAP therapy with a reduction in PEEP. She had a echocardiogram done which shows significant right ventricular dilatation right atrial dilatation consistent with severe pulmonary hypertension. She refused BiPAP last night. Had lengthy discussion with her about the need for appropriate therapy. Patient has severe pulmonary hypertension WHO class III. In general there are not many treatments for amelioration. She has significant emphysema and the possibility of alpha-1 antitrypsin disease needs to be considered. Although this can be considered an acute phase reactant she does not appear to be in any acute spasm. The current treatments for who grade 3: Pulmonary Hypertension are adequate oxygenation improvement in overall pulmonary function. I have sent lab work for ANCA, alpha-1 antitrypsin. Concerned that she has persistent renal failure be reflective of poor LV filling with adequate function. Await family to discuss options and plans further. Discontinued Rocephin and continue azithromycin for anti-inflammatory effect. Continue steroids and beta agonist therapy.
[2019-02-14] MEDS: ESCITALOPRAM OXALATE 10 MG TABLET PO SCH (21:42)
[2019-02-15] MEDS: IPRATROPIUM/ALBUTEROL 0.5-2.5 MG/3 ML AMPUL NEB SCH ×4 (01:53→20:03)
[2019-02-15 05:09] LABS: HEMOGLOBIN 9.9 g/dL (12.0-15.5); MEAN CORPUSCULAR HEMOGLOBIN 31.9 pg (27.0-33.4); MEAN CORPUSCULAR VOLUME 100 fl (80-97); PLATELET COUNT 242 10^3/uL (150-450); RED BLOOD COUNT 3.11 10^6/uL (3.72-5.28); RED CELL DISTRIBUTION WIDTH 16.6 % (11.5-14.0); WHITE BLOOD COUNT 9.8 10^3/uL (4.0-10.5)
[2019-02-15] MEDS: HEPARIN SOD (PORCINE) 5,000 UNIT/ML 1 ML VIAL SUBCUT SCH ×3 (05:40→21:31)
[2019-02-15] MEDS: ALPRAZOLAM 0.5 MG TABLET SL PRN ×3 (06:57→22:56)
[2019-02-15] MEDS: BUDESONIDE NEB 0.5 MG/2 ML AMPUL NEB SCH ×2 (08:05→20:03)
[2019-02-15] MEDS: CETIRIZINE 10 MG TABLET PO SCH (11:04)
[2019-02-15] MEDS: AMLODIPINE BESYLATE 5 MG TABLET PO SCH (11:04)
[2019-02-15] MEDS: METHYLPREDNISOLONE INJ 40 MG/1 ML SDV IV SCH ×2 (11:04→21:29)
[2019-02-15] MEDS: AZITHROMYCIN 500 MG in DEXTROSE 5%-WATER 250 ML IV SCH (11:04)
--- NOTE | 2019-02-15 11:51 | PDOC PROGRESS REPORT ---
Subjective Progress Note for:: 02/14/19 Subjective:: Patient was admitted with shortness of breath. She was noted to have severe CO2 retention and was subsequently transferred to the unit. Patient was noted to have acute on chronic respiratory failure. Patient on questioning denied any chest pain. Reason For Visit: RESPIRATORY DISTRESS,COPD ACUTE,EX Physical Exam Vital Signs: Temp Pulse Resp BP Pulse Ox 97.8 F 81 17 114/63 91 L 02/14/19 12:00 02/14/19 12:00 02/14/19 12:00 02/14/19 12:00 02/14/19 12:00 Intake & Output 02/13/19 02/14/19 02/15/19 06:59 06:59 06:59 Intake Total 600 530 Output Total 500 150 Balance 600 30 -150 Weight 76 kg 63.8 kg Exam: GEN: NAD, patient alert oriented x3. Appearance and grooming WNL patient wearing BiPap therapy HEENT : Eyes: MICHELLE, Ears: No significant abnormalities, Nose: No significant a bnormalities. normocephalic atraumatic. Flat midface (-), Receding chin (-) ORAL : Mallampati class IV, narrow arched palate (-) Tonsils: Not enlarged. NECK: no thyromegaly, no masses, trachea is central, JVD is mildly elevated, carotids 2+ with bruit (-) RESP: bibasal affine crackles with few wheezes or rhonchi, nonlabored, accessory muscles of respiration use (-). CV: NL S1 and S2. No significant murmurs noted, no gallop, no extra sounds, no clicks, no rub noted. GI: abd NT to palpation, no masses, bowel sounds present, no guarding or rigidity noted. EXT: no clubbing, (-) cyanosis, edema (-), perpheral pulses diminished (no) MUSC/SKEL: no acute joint swelling noted. Muscle strength is generally intact. NEURO: no significant focal neurological deficits are note, sensation grossly intact, AO x 3 PSYCH: NL mood and affect. judgment and insight noted to be intact. SKIN: (-) rash, (-)Signs of pruritus, (-) other significant abnormality Results Laboratory Results: 02/14/19 04:24 02/14/19 11:25 02/13/19 02/13/19 02/14/19 12:51 15:41 04:00 WBC RBC Hgb Hct MCV MCH MCHC RDW Plt Count VBG pH 7.30 VBG pCO2 75.6 H* VBG HCO3 36.0 H VBG Base Excess 7.9 Sodium 138.7 Potassium 5.7 H Chloride 95 L Carbon Dioxide 38 H Anion Gap 6 BUN 30 H Creatinine 1.80 H Est GFR ( Amer) 35 L Glucose 153 H Calcium 9.8 Phosphorus 3.2 Magnesium 2.2 Total Bilirubin AST Alkaline Phosphatase Ammonia Total Protein Albumin TSH Free T4 Urine Color YELLOW Urine Appearance SLIGHTLY-CLOUDY Urine pH 5.0 Ur Specific [place] 1.021 Urine Protein 30 H Urine Glucose (UA) NEGATIVE Urine Ketones NEGATIVE Urine Blood NEGATIVE Urine Nitrite NEGATIVE Ur Leukocyte Esterase NEGATIVE Urine WBC (Auto) 2 Urine RBC (Auto) 0 02/14/19 02/14/19 02/14/19 04:24 04:24 04:24 WBC 10.5 D RBC 3.26 L Hgb 10.3 L Hct 33.0 L MCV 101 H MCH 31.6 MCHC 31.2 L RDW 16.5 H Plt Count 257 VBG pH VBG pCO2 VBG HCO3 VBG Base Excess Sodium Potassium Chloride Carbon Dioxide Anion Gap BUN Creatinine Est GFR ( Amer) Glucose Calcium Phosphorus 3.7 Magnesium 2.3 Total Bilirubin 0.3 AST 26 Alkaline Phosphatase 53 Ammonia Total Protein 6.3 Albumin 3.5 TSH 0.22 L Free T4 0.86 Urine Color Urine Appearance Urine pH Ur Specific [place] Urine Protein Urine Glucose (UA) Urine Ketones Urine Blood Urine Nitrite Ur Leukocyte Esterase Urine WBC (Auto) Urine RBC (Auto) 02/14/19 02/14/19 02/14/19 06:45 11:25 11:25 WBC RBC Hgb Hct MCV MCH MCHC RDW Plt Count VBG pH 7.17 L* VBG pCO2 118.6 H* VBG HCO3 42.3 H VBG Base Excess 9.6 Sodium 138.3 Potassium 5.6 H Chloride 90 L Carbon Dioxide 45 H* Anion Gap 3 L BUN 30 H Creatinine 1.70 H Est GFR ( Amer) 37 L Glucose 137 H Calcium 9.7 Phosphorus 4.1 Magnesium 2.2 Total Bilirubin AST Alkaline Phosphatase Ammonia 13.4 Total Protein Albumin TSH Free T4 Urine Color Urine Appearance Urine pH Ur Specific [place] Urine Protein Urine Glucose (UA) Urine Ketones Urine Blood Urine Nitrite Ur Leukocyte Esterase Urine WBC (Auto) Urine RBC (Auto) 02/12/19 02/12/19 02/12/19 18:46 18:46 18:46 Creatine Kinase 64 CK-MB (CK-2) 2.93 Troponin I < 0.012 NT-Pro-B Natriuret Pep [id number] H 02/13/19 02/13/19 04:11 04:11 Creatine Kinase 50 CK-MB (CK-2) 3.58 Troponin I < 0.012 NT-Pro-B Natriuret Pep [id number] H EKG Comments: Sinus rhythm, no acute ST-T wave changes are noted. No significant arrhythmias noted Impressions: Chest Ultrasound 02/12/19 17:35 IMPRESSION: No pleural effusions. Chest X-Ray 02/13/19 00:00 IMPRESSION: Cardiomegaly and pulmonary vascular prominence. No pulmonary edema or pleural effusions Renal Ultrasound 02/13/19 00:00 IMPRESSION: There are chronic appearing changes in the kidneys with no acute finding. Assessment & Plan - Diagnosis (1) Acute and chronic respiratory failure Qualifiers: Respiratory failure complication: hypoxia and hypercapnia Qualified Code(s): J96.21 - Acute and chronic respiratory failure with hypoxia; J96.22 - Acute and chronic respiratory failure with hypercapnia Is this a current diagnosis for this admission?: Yes (2) Acute exacerbation of chronic obstructive pulmonary disease (COPD) Is this a current diagnosis for this admission?: Yes (3) COPD exacerbation Is this a current diagnosis for this admission?: Yes (4) CHF (congestive heart failure) Qualifiers: Heart failure type: right-sided Heart failure chronicity: acute on chronic Qualified Code(s): I50.813 - Acute on chronic right heart failure Is this a current diagnosis for this admission?: Yes - Notes Notes: Patients medical condition relatively unchanged. Patient has been noted to remove her BiPAP mask often. This is resulting in marked CO2 retention. Patient has severe pulmonary hypertension. RV is significantly dilated. Continue with e mpiric chronic anticoagulation for severe pulmonary hypertension. I'm told by the intensive is that his considering tertiary care transfer with which I agree. Patient will need to be followed in the pulmonary hypertension clinic. I'm told paper mill superintendent also following the case. All be out of town over the weekend but will be available for phone consultation. - Time Time with patient: Greater than 35 minutes - Case discussed with Dr Latif and condominium property manager. Overall prognosis guarded due to severe pulmonary hypertension which is affecting RV function. Medications reviewed and adjusted accordingly: Yes
[2019-02-15 13:23] LABS: VENOUS BLOOD BASE EXCESS 12.6 mmol/L; VENOUS BLOOD HCO3 42.8 mmol/L (20-32); VENOUS BLOOD PH 7.28 (7.30-7.42)
[2019-02-15 13:24] LABS: VENOUS BLOOD PCO2 93.4 mmHg (35-63)
--- NOTE | 2019-02-15 14:08 | PDOC PROGRESS REPORT ---
Subjective Progress Note for:: 02/15/19 Subjective:: 02.15.19: Patient had uneventful night and tolerated her BiPAP. She is alert and without anxiety this morning on rounds. No hemodynamic instability. She does not have any shortness of breath or chest pain. This afternoon's blood work shows a pH of 7-8 with an elevation PCO2 again. Lengthy discussion about her use of BiPAP while sleeping. She says that she gets anxious and we discussed the fact that her life is dependent on optimal care and her situation will become worse if she is not aware of her situation and compliant. 02.14.19 Patient admitted to the ICU from stepdown unit yesterday. She responded well to BiPAP therapy with a reduction in PEEP. She had a echocardiogram done which shows significant right ventricular dilatation right atrial dilatation consistent with severe pulmonary hypertension. Estimated pressures were greater than 60 mmHg. She intermittently refuses BiPAP. Today she required it because of somnolence. BiPAP last night not consistently left on. Had a lengthy discussion with specialist at [facility] regarding her pulmonary hypertension. They are in agreement that we should wait until this acute exacerbation is relieved and have her see them for subspecialty support. I am concerned that her pulmonary pressures are out of proportion to what would be expected with routine COPD and hypoxic related lung disease. Recommendations for these types of patients are for right heart cath to determine if pressures are out of proportion to their lung disease. A VQ scan may also be a viable option to look at functionality. Patient is quite anxious normally at baseline and has been anxious while here. This is not uncharacteristic for her. We are awaiting family to discuss her disease state and options. Reason For Visit: RESPIRATORY DISTRESS,COPD ACUTE,EX Physical Exam Vital Signs: Temp Pulse Resp BP Pulse Ox 97.6 F 93 20 126/86 H 92 02/15/19 12:00 02/15/19 13:42 02/15/19 13:42 02/15/19 12:00 02/15/19 13:42 Intake & Output 02/14/19 02/15/19 02/16/19 06:59 06:59 06:59 Intake Total 530 745 240 Output Total 500 1200 300 Balance 30 -455 -60 Weight 63.8 kg 77 kg Physical Exam: Tonically ill-appearing 63-year-old black female no active distress awake,alert oriented x3 General appearance: PRESENT: no acute distress, cooperative Eye exam: PRESENT: conjunctiva pink, EOMI, PERRLA. ABSENT: conjunctival injection, nystagmus, scleral icterus Mouth exam: PRESENT: dry mucosa Teeth exam: PRESENT: dental caries, poor dentation Throat exam: ABSENT: post pharyngeal erythema, tonsillar exudate Neck exam: PRESENT: full ROM. ABSENT: carotid bruit, JVD, lymphadenopathy, meni ngismus, tenderness, thyromegaly Respiratory exam: PRESENT: clear to auscultation bianca, unlabored. ABSENT: accessory muscle use, tachypnea Cardiovascular exam: PRESENT: RRR, +S1, +S2 Murmur grade: 3 Pulses: PRESENT: normal carotid pulses, +2 pedal pulses bilateral Vascular exam: PRESENT: normal capillary refill GI/Abdominal exam: PRESENT: normal bowel sounds, soft. ABSENT: ascites, diminished bowel sounds, distended, firm, guarding, mass, Keyes's sign, rebound, rigid, tenderness Extremities exam: PRESENT: pedal edema. ABSENT: joint swelling Neurological exam: PRESENT: alert, awake, oriented to person, oriented to place, oriented to time, oriented to situation, CN II-XII grossly intact. ABSENT: motor sensory deficit Psychiatric exam: PRESENT: appropriate affect. ABSENT: agitated, anxious Skin exam: PRESENT: normal color. ABSENT: cyanosis, erythema, jaundice, mottled, petechiae Additional comments: No clubbing of fingers Results Laboratory Results: 02/15/19 04:39 02/15/19 13:17 02/14/19 02/15/19 02/15/19 17:18 04:39 04:39 WBC 9.8 RBC 3.11 L Hgb 9.9 L Hct 31.0 L MCV 100 H MCH 31.9 MCHC 32.0 RDW 16.6 H Plt Count 242 VBG pH 7.34 VBG pCO2 85.1 H* VBG HCO3 44.8 H VBG Base Excess 15.8 Sodium Potassium Chloride Carbon Dioxide Anion Gap BUN Creatinine Est GFR ( Amer) Est GFR (Non-Af Amer) Glucose Calcium Phosphorus Magnesium 2.2 02/15/19 02/15/19 13:17 13:17 WBC RBC Hgb Hct MCV MCH MCHC RDW Plt Count VBG pH 7.28 L VBG pCO2 93.4 H* VBG HCO3 42.8 H VBG Base Excess 12.6 Sodium Cancelled Potassium Cancelled Chloride Cancelled Carbon Dioxide Cancelled Anion Gap Cancelled BUN Cancelled Creatinine Cancelled Est GFR ( Amer) Cancelled Est GFR (Non-Af Amer) Cancelled Glucose Cancelled Calcium Cancelled Phosphorus Cancelled Magnesium Cancelled 02/12/19 02/12/19 02/12/19 18:46 18:46 18:46 Creatine Kinase 64 CK-MB (CK-2) 2.93 Troponin I < 0.012 NT-Pro-B Natriuret Pep [id number] H 02/13/19 02/13/19 04:11 04:11 Creatine Kinase 50 CK-MB (CK-2) 3.58 Troponin I < 0.012 NT-Pro-B Natriuret Pep 52106 H Impressions: Chest Ultrasound 02/12/19 17:35 IMPRESSION: No pleural effusions. Chest X-Ray 02/13/19 00:00 IMPRESSION: Cardiomegaly and pulmonary vascular prominence. No pulmonary edema or pleural effusions Renal Ultrasound 02/13/19 00:00 IMPRESSION: There are chronic appearing changes in the kidneys with no acute finding. Assessment & Plan - Diagnosis (1) Acute hypercapnic respiratory failure Is this a current diagnosis for this admission?: Yes (2) Acute exacerbation of chronic obstructive pulmonary disease (COPD) Is this a current diagnosis for this admission?: Yes (3) Acute metabolic encephalopathy Is this a current diagnosis for this admission?: Yes (4) Acute kidney failure Qualifiers: Acute renal failure type: unspecified Qualified Code(s): N17.9 - Acute kidney failure, unspecified Is this a current diagnosis for this admission?: Yes (5) CKD (chronic kidney disease) stage 2, GFR 60-89 ml/min Is this a current diagnosis for this admission?: Yes (6) Oxygen dependent Is this a current diagnosis for this admission?: Yes (7) Hyperkalemia Is this a current diagnosis for this admission?: Yes (8) Elevated brain natriuretic peptide (BNP) level Is this a current diagnosis for this admission?: Yes - Time Time Spent with patient: 35 or more minutes Total Critical Time (Minutes): 40 Medications reviewed and adjusted accordingly: Yes - Inpatient Certification Based on my medical assessment, after consideration of the patient's comorbidities, presenting symptoms, or acuity I expect that the services needed warrant INPATIENT care.: Yes I certify that my determination is in accordance with my understanding of Medicare's requirements for reasonable and necessary INPATIENT services [42 CFR 412.3e].: Yes Medical Necessity: Need Close Monitoring Due to Risk of Patient Decompensation, Need For IV Fluids, Need for Neurological Checks - Plan Summary Plan Summary: 02.15.19: She has shown subtle but gradual improvement. She is more agreeable to BiPAP but often requires anxiolytics for this. Her first blood draw had hemolysis and we are awaiting a repeat to follow her potassium and creatinine. We will change to a sodium chloride drip to assure adequate volume. She is not a Diamox candidate at this point. Continue supportive care and BiPAP while sleeping. The patient has chronic anxiety and will try to control this. Continue to encourage compliance with therapy. Recommendations for anticoagulation for who class III are not currently recommended other than routine DVT prophylaxis. Steroids with wean over the next few days. Waiting ANCA and alpha-1 studies. Had hyperkalemia and will continue to follow and monitor. She does have acute kidney injury which we are concerned comes from poor left ventricular cardiac output. Check labs and treat supportively. 02.14.19: Patient admitted to the ICU from stepdown unit yesterday. She responded well to BiPAP therapy with a reduction in PEEP. She had a echocardiogram done which shows significant right ventricular dilatation right atrial dilatation consistent with severe pulmonary hypertension. She refused BiPAP last night. Had lengthy discussion with her about the need for appropriate therapy. Patient has severe pulmonary hypertension WHO class III. In general there are not many treatments for amelioration. She has significant emphysema and the possibility of alpha-1 antitrypsin disease needs to be considered. Although this can be considered an acute phase reactant she does not appear to be in any acute spasm. The current treatments for who grade 3: Pulmonary Hypertension are adequate oxygenation improvement in overall pulmonary function. I have sent lab work for ANCA, alpha-1 antitrypsin. Concerned that she has persistent renal failure be reflective of poor LV filling with adequate function. Await family to discuss options and plans further. Discontinued Rocephin and continue azithromycin for anti-inflammatory effect. Continue steroids and beta agonist therapy.
[2019-02-15 14:41] LABS: BLOOD UREA NITROGEN 27 mg/dL (7-20); CALCIUM 9.3 mg/dL (8.4-10.2); CHLORIDE 88 mmol/L (98-107); GLUCOSE 175 mg/dL (75-110); PHOSPHORUS 3.6 mg/dL (2.5-4.5)
[2019-02-15 14:49] LABS: ANION GAP 5 (5-19)
[2019-02-15 14:50] LABS: CARBON DIOXIDE 44 mmol/L (22-30)
[2019-02-15] MEDS ORDERED: HALOPERIDOL LACTATE INJ 5 MG/1 ML VIAL ONE (20:08)
[2019-02-15] MEDS ORDERED: AMLODIPINE BESYLATE 5 MG TABLET PO ONE (20:45)
[2019-02-15] MEDS: ESCITALOPRAM OXALATE 10 MG TABLET PO SCH (21:29)
[2019-02-15] MEDS: NORMAL SALINE 1000 ML 1,000 ML IV PRN (21:42)
[2019-02-16] MEDS: IPRATROPIUM/ALBUTEROL 0.5-2.5 MG/3 ML AMPUL NEB SCH ×4 (02:09→20:08)
[2019-02-16] MEDS: HALOPERIDOL LACTATE INJ 5 MG/1 ML VIAL IV PRN (02:18)
[2019-02-16 04:39] LABS: VENOUS BLOOD BASE EXCESS 21.2 mmol/L; VENOUS BLOOD HCO3 53.1 mmol/L (20-32); VENOUS BLOOD PH 7.28 (7.30-7.42)
[2019-02-16 04:42] LABS: VENOUS BLOOD PCO2 116.6 mmHg (35-63)
[2019-02-16 04:47] LABS: HEMATOCRIT 33.5 % (36.0-47.0); HEMOGLOBIN 10.8 g/dL (12.0-15.5); MEAN CORPUSCULAR HEMOGLOBIN 32.3 pg (27.0-33.4); MEAN CORPUSCULAR HGB CONC 32.1 g/dL (32.0-36.0); MEAN CORPUSCULAR VOLUME 101 fl (80-97); PLATELET COUNT 237 10^3/uL (150-450); RED BLOOD COUNT 3.33 10^6/uL (3.72-5.28); RED CELL DISTRIBUTION WIDTH 16.8 % (11.5-14.0); WHITE BLOOD COUNT 8.4 10^3/uL (4.0-10.5)
[2019-02-16 05:15] LABS: BLOOD UREA NITROGEN 26 mg/dL (7-20); CALCIUM 9.2 mg/dL (8.4-10.2); CHLORIDE 91 mmol/L (98-107); GLUCOSE 115 mg/dL (75-110); PHOSPHORUS 3.5 mg/dL (2.5-4.5); POTASSIUM 5.4 mmol/L (3.6-5.0)
[2019-02-16 05:27] LABS: CARBON DIOXIDE 45 mmol/L (22-30)
[2019-02-16 05:38] LABS: ANION GAP 3 (5-19)
[2019-02-16] MEDS: HEPARIN SOD (PORCINE) 5,000 UNIT/ML 1 ML VIAL SUBCUT SCH ×3 (05:51→22:43)
[2019-02-16 06:10] LABS: ABSOLUTE LYMPHOCYTES# (MANUAL) 0.2 10^3/uL (0.5-4.7); ABSOLUTE MONOCYTES # (MANUAL) 0.3 10^3/uL (0.1-1.4); BAND NEUTROPHILS % (MANUAL) 4 % (3-5); BASOPHILS % (MANUAL) 0 % (0-2); EOSINOPHILS % (MANUAL) 0 % (0-6); LYMPHOCYTES % (MANUAL) 2 % (13-45); MONOCYTES % (MANUAL) 3 % (3-13); SEGMENTED NEUTROPHILS % (MAN) 91 % (42-78); TOTAL CELLS COUNTED 100
[2019-02-16 06:11] LABS: ANISOCYTOSIS 1+; PLATELET COMMENT ADEQUATE
[2019-02-16] MEDS ORDERED: ETOMIDATE INJ/PF 20 MG/10 ML SDV IV ONE ×2 (07:44→08:01)
[2019-02-16] MEDS ORDERED: MINERAL OIL/PETROLATUM,WHITE OPH OINT 3.5 GM OU PRN (07:47)
[2019-02-16] MEDS ORDERED: ROCURONIUM BROMIDE INJ 50 MG/5 ML VIAL IV ONE (07:49)
[2019-02-16 07:56] LABS: ARTERIAL BLOOD H2CO3 3.77 mmol/L (1.05-1.35); ARTERIAL BLOOD HCO3 50.7 mmol/L (20-24); ARTERIAL BLOOD PH 7.23 (7.35-7.45); ARTERIAL BLOOD PO2 76.7 mmHg (80-100); ARTERIAL BLOOD TOTAL CO2 54.6 mmol/L (21-25)
[2019-02-16 07:57] LABS: ARTERIAL BLOOD FIO2 40%
[2019-02-16 07:58] LABS: ARTERIAL BLOOD PCO2 125.4 mmHg (35-45)
[2019-02-16] MEDS ORDERED: PROPOFOL 1,000 MG/100 ML INFUS..BTL IV ONE (08:03)
[2019-02-16] MEDS ORDERED: FENTANYL CITRATE INJ/PF 100 MCG/2 ML AMPUL ONE (08:15)
[2019-02-16] MEDS: BUDESONIDE NEB 0.5 MG/2 ML AMPUL NEB SCH ×2 (08:33→20:08)
[2019-02-16] MEDS: PROPOFOL 1,000 MG/100 ML INFUS..BTL IV PRN ×4 (08:36→19:55)
[2019-02-16] MEDS ORDERED: FENTANYL CITRATE INJ/PF 100 MCG/2 ML AMPUL IV ONE ×2 (09:00→15:45)
[2019-02-16 09:08] LABS: APPEARANCE,URINE CLEAR; BILIRUBIN,URINE NEGATIVE (NEGATIVE); COLOR,URINE YELLOW; GLUCOSE, URINE NEGATIVE (NEGATIVE); KETONES,URINE NEGATIVE (NEGATIVE); LEUKOCYTE ESTERASE,URINE NEGATIVE (NEGATIVE); NITRITE,URINE NEGATIVE (NEGATIVE); PROTEIN,URINE 30 mg/dL (NEGATIVE); URINE SPECIFIC GRAVITY 1.017; UROBILINOGEN,URINE NEGATIVE mg/dL (<2.0)
[2019-02-16] MEDS ORDERED: AMLODIPINE BESYLATE 5 MG TABLET PO SCH (10:00)
[2019-02-16 11:32] LABS: ARTERIAL BLOOD H2CO3 1.77 mmol/L (1.05-1.35); ARTERIAL BLOOD HCO3 37.3 mmol/L (20-24); ARTERIAL BLOOD O2 SATURATION 65.8 % (94-98); ARTERIAL BLOOD PCO2 58.7 mmHg (35-45); ARTERIAL BLOOD TOTAL CO2 39.1 mmol/L (21-25)
[2019-02-16 11:34] LABS: ARTERIAL BLOOD FIO2 40%; ARTERIAL BLOOD PH 7.42 (7.35-7.45); ARTERIAL BLOOD PO2 34.6 mmHg (80-100)
--- NOTE | 2019-02-16 11:43 | RADIOLOGY REPORT (SQ) ---
EXAM DESCRIPTION: CHEST SINGLE VIEW COMPLETED DATE/TIME: 02/16/2019 11:14 am REASON FOR STUDY: Post Intubation - ET Tube Placement. / Warren-Amanda COMPARISON: 02/13/2019 NUMBER OF VIEWS: One view. TECHNIQUE: Single frontal radiographic image of the chest acquired. LIMITATIONS: None. FINDINGS: LUNGS AND PLEURA: No consolidation or pneumothorax. MEDIASTINUM AND HILAR STRUCTURES: Stable heart size and mediastinal structures. HEART AND VASCULAR STRUCTURES: Stable appearance. SUPPORT DEVICES: Appropriate position of Warren-Amanda catheter, nasogastric and endotracheal tubes. BONES: No acute findings. OTHER: No other significant finding. IMPRESSION: Appropriate position of support apparatus. No pneumothorax. TECHNICAL DOCUMENTATION: JOB ID: [id number] [employer]- All Rights Reserved Reading location - IP/workstation name: [email or web address]
--- NOTE | 2019-02-16 11:43 | RADIOLOGY REPORT (SQ) ---
EXAM DESCRIPTION: KUB/ABDOMEN (SINGLE VIEW) COMPLETED DATE/TIME: 02/16/2019 11:14 am REASON FOR STUDY: NG Tube Placement COMPARISON: None. NUMBER OF VIEWS: One view. TECHNIQUE: Supine radiographic image of the abdomen acquired. LIMITATIONS: None. FINDINGS: BOWEL GAS PATTERN: Normal bowel gas pattern. No dilated loops. CALCIFICATIONS: No suspicious calcifications. SOFT TISSUES: No gross mass or suggestion of organomegaly. HARDWARE: None. BONES: No bone lesions or fracture. OTHER: Nasogastric tube tip overlying gastric antrum. IMPRESSION: Appropriate position of nasogastric tube. Reading location - IP/workstation name: [email or web address]
--- NOTE | 2019-02-16 14:01 | PDOC PROGRESS REPORT ---
Subjective Progress Note for:: 02/16/19 Subjective:: 02.16.19: Patient's condition has worsened this morning. She is confused. We do not hear much air entry on examination of her lungs. Had no fever. Oxygen saturations not been a problem. Her venous blood gas, despite being on BiPAP, have worsened. She was intubated this morning secondary to elevation in PCO2. Addition a PA catheter was placed showing elevated pulmonary artery pressures of 75-80/40. Wedge was 12-14. I had a discussion with the patient's niece who stated that the patient's sister was on sildenafil for pulmonary hypertension related to lupus. Work has been sent on this patient because her PA pressures are out of proportion to her lung disease. He has not smoked for at least 4 years. Arterial catheter was placed which showed change in systemic blood pressure contradistinction to her manual cuff pressures. She does not have significantly elevated peak pressures on her ventilator nor plateau pressures. These have improved since intubation. Physical exam reflects findings prior to intubation. 02.15.19: Patient had uneventful night and tolerated her BiPAP. She is alert and without anxiety this morning on rounds. No hemodynamic instability. She does not have any shortness of breath or chest pain. This afternoon's blood work shows a pH of 7.18 with an elevation PCO2 again. Lengthy discussion about her use of BiPAP while sleeping. She says that she gets anxious and we discussed the fact that her life is dependent on optimal care and her situation will become worse if she is not aware of her situation and compliant. 02.14.19 Patient admitted to the ICU from stepdown unit yesterday. She responded well to BiPAP therapy with a reduction in PEEP. She had a echocardiogram done which shows significant right ventricular dilatation right atrial dilatation consistent with severe pulmonary hypertension. Estimated pressures were greater than 60 mmHg. She intermittently refuses BiPAP. Today she required it because of somnolence. BiPAP last night not consistently left on. Had a lengthy discussion with specialist at [facility] regarding her pulmonary hyper tension. They are in agreement that we should wait until this acute exacerbation is relieved and have her see them for subspecialty support. I am concerned that her pulmonary pressures are out of proportion to what would be expected with routine COPD and hypoxic related lung disease. Recommendations for these types of patients are for right heart cath to determine if pressures are out of proportion to their lung disease. A VQ scan may also be a viable option to look at functionality. Patient is quite anxious normally at baseline and has been anxious while here. This is not uncharacteristic for her. We are awaiting family to discuss her disease state and options. Reason For Visit: RESPIRATORY DISTRESS,COPD ACUTE,EX Physical Exam Vital Signs: Temp Pulse Resp BP Pulse Ox 97.9 F 82 23 H 155/83 H 100 02/16/19 04:00 02/16/19 02:11 02/16/19 06:30 02/16/19 05:39 02/16/19 06:30 Intake & Output 02/15/19 02/16/19 02/17/19 06:59 06:59 06:59 Intake Total 745 540 Output Total 1200 1500 Balance -455 -960 Weight 77 kg 78.9 kg Vital Signs Temp Pulse Resp BP BP Pulse Ox 02/16/19 10:00 96.8 F L 76 18 112/64 100 02/16/19 08:35 80 20 100 02/16/19 08:00 96.5 F L 115 H 14 113/50 L 93 02/16/19 06:30 23 H 100 02/16/19 06:15 22 H 94 02/16/19 06:00 28 H 95 02/16/19 05:45 26 H 92 02/16/19 05:39 26 H 155/83 H 94 02/16/19 05:38 22 H 95 02/16/19 05:30 21 H 96 02/16/19 05:23 96 02/16/19 05:15 20 96 02/16/19 05:00 21 H 95 02/16/19 04:45 21 H 95 02/16/19 04:39 24 H 113/64 95 02/16/19 04:38 21 H 94 02/16/19 04:30 22 H 95 02/16/19 04:22 20 96 02/16/19 04:15 20 97 02/16/19 04:00 97.9 F 20 96 02/16/19 03:45 20 97 02/16/19 03:39 19 106/60 96 02/16/19 03:38 17 97 02/16/19 03:30 19 98 02/16/19 03:15 20 98 02/16/19 03:13 21 H 112/65 98 02/16/19 03:12 16 98 02/16/19 03:00 23 H 100 02/16/19 02:45 19 100 02/16/19 02:41 23 H 71/42 L 100 02/16/19 02:40 23 H 99 02/16/19 02:30 24 H 97 02/16/19 02:15 20 100 02/16/19 02:11 82 20 96 02/16/19 02:00 28 H 94 02/16/19 01:45 24 H 94 02/16/19 01:39 21 H 129/85 H 92 02/16/19 01:38 23 H 92 02/16/19 01:30 26 H 93 02/16/19 01:15 23 H 93 02/16/19 01:00 22 H 93 02/16/19 00:45 24 H 93 Nursing Documentation ICU Nursing Shift Assessment Start: 02/13/19 11:30 Freq: Q2 Status: Active Protocol: Activity Type Activity Date Activity User E-Sign Co-Sign Detail Recorded Client Recorded Date Recorded By Document 02/15/19 12:00 MMA [email or web address] 02/15/19 12:05 MMA Document 02/15/19 14:00 MMA [email or web address] 02/15/19 17:43 MMA Document 02/15/19 16:00 MMA 02/15/19 17:44 MMA Document 02/15/19 18:00 MMA ALLinONE 02/15/19 18:51 MMA Document 02/15/19 19:15 RISHABH [email or web address] 02/15/19 20:32 RISHABH Document 02/15/19 20:00 RISHABH [email or web address] 02/15/19 20:28 RISHABH Document 02/15/19 20:32 RISHABH [email or web address] 02/15/19 20:34 RISHABH Document 02/15/19 22:00 RISHABH [email or web address] 02/15/19 22:25 RISHABH Document 02/16/19 00:00 RISHABH [email or web address] 02/16/19 00:22 RISHABH Document 02/16/19 02:00 RISHABH [email or web address] 02/16/19 03:19 RISHABH Document 02/16/19 04:00 RISHABH [email or web address] 02/16/19 04:36 RISHABH Document 02/16/19 06:00 RISHABH [email or web address] 02/16/19 06:31 RISHABH 02/15/19 02/15/19 02/15/19 12:00 14:00 16:00 Isolation Level Isolation Level(s) Standard Standard Standard Neurological Assessment Neurological changes since this nurse No No No previous assessment Level of Consciousness Orientation Patient Has a Sitter No No No Jaci Coma Scale Eye Opening [place] Coma Scale Motor Jaci Coma Scale Verbal Jaci Coma Scale Total (15 points) Pupil [place] Bilateral -Pupil Reaction -Pupil Size (mm) (mm) Bilateral Lower -Motor response Bilateral Upper -Motor response Communication Tools Psychological Assessment Mood Description Calm,Relaxed Calm,Relaxed Calm,Relaxed Speech Pattern Clear, Clear Clear Appropriate Rational Thinking Intact Intact Intact Anxiety Level Suicidal Ideation Description Feelings of Hopelessness Cardiovascular Assessment Cardiovascular changes since this nurse No No No previous assessment Cardiac Rhythm Heart Tones/Sounds Capillary Refill Bilateral Dorsalis Pedis -Pulse Quality -Pulse Assessment Method Bilateral Radial -Pulse Quality -Pulse Assessment Method Does the patient have SCD's on Does the patient have TEDS on Respiratory Assessment Pulmonary changes since this nurse No No No previous assessment Respiratory pattern Respiratory Effort Respiratory Depth Chest Expansion Respiratory Symptoms Anterior Bilateral Throughout -Lung Sound Respiratory Phase -Breath Sounds Cough Frequency Cough Description Sputum Amount Sputum Production Method Respiratory Support Nasal/Full Face Mask BiPap Delivery Mode Ventilator Does patient have a trach Chest Tube Present Restraints Restraints being used None None None GI Assessment GI changes since this nurse previous No No No assessment Abdomen Description Ostomy present Drain Present Hernia Present All Quadrants -Bowel Sounds GI Symptoms Bowel Pattern Flatus Presence Urinary Assessment changes since this nurse previous No No No assessment Urinary Method Voiding Voiding Voiding Bladder Pattern Urine Appearance Clear Urine Color Yellow Urine Odor Skin Assessment Skin Color Normal Normal Normal Skin Temperature Warm Warm Warm Skin Turgor Skin Moisture Dry Dry Dry Skin Texture Smooth Smooth Smooth Perineum Description Intact Intact Intact Is the patient on a specialty bed Yes Yes Yes Is There IV Access Yes Yes Yes Central Line Present No No No 02/15/19 02/15/19 02/15/19 18:00 19:15 20:00 Isolation Level Isolation Level(s) Standard Standard Standard Neurological Assessment Neurological changes since this nurse No previous assessment Level of Consciousness Awake,Alert, Awake,Alert, Inappropriate, Confused, Confused, Agitated Agitated Orientation Confused Oriented to Person,Oriented to Place, Oriented to Time,Confused Patient Has a Sitter No No No [place] Coma Scale Eye Opening Spontaneous Spontaneous Jaci Coma Scale Motor Obeys Commands Obeys Commands [place] Coma Scale Verbal Confused Confused Jaci Coma Scale Total (15 points) 14 14 Pupil [place] PERRL PERRL Bilateral -Pupil Reaction Brisk Brisk -Pupil Size (mm) (mm) 4 4 Bilateral Lower -Motor response Lifts and holds Lifts and holds for 5 sec for 5 sec Bilateral Upper -Motor response Lifts and holds Lifts and holds for 5 sec for 5 sec Communication Tools Verbal,Facial Verbal,Facial Expression, Expression, Physical Physical Gestures Gestures Psychological Assessment Mood Description Calm,Relaxed Hostile,Anxious Hostile,Anxious Speech Pattern Clear, Inappropriate, Appropriate, Appropriate Slurred Rambling Rational Thinking Intact Disorganized, Disoriented Disoriented Anxiety Level Severe Moderate Suicidal Ideation Description None Feelings of Hopelessness No Cardiovascular Assessment Cardiovascular changes since this nurse No Yes No previous assessment Cardiac Rhythm Sinus Normal Sinus Tachycardia Rhythm (NSR) Heart Tones/Sounds S1 & S2,Regular S1 & S2,Regular Capillary Refill Less than 3 Less than 3 Seconds Seconds Bilateral Dorsalis Pedis -Pulse Quality Thready-1 Thready-1 -Pulse Assessment Method Palpation Palpation Bilateral Radial -Pulse Quality Thready-1 Thready-1 -Pulse Assessment Method Palpation Palpation Does the patient have SCD's on No: refused Does the patient have TEDS on No Respiratory Assessment Pulmonary changes since this nurse No Yes No previous assessment Respiratory pattern Tachypnea Normal Respiratory Effort Labored, Labored, Accessory Accessory Muscle Use Muscle Use Respiratory Depth Deep Deep Chest Expansion Symmetrical Symmetrical Respiratory Symptoms Unable to Lie Unable to Lie Flat,SOB with Flat,SOB with Exertion,SOB at Exertion,SOB at Rest, Rest Difficulty Coughing, Difficulty Clearing Secr. Anterior Bilateral Throughout -Lung Sound Respiratory Phase Inspiratory & Inspiratory & Expiratory Expiratory -Breath Sounds Diminished Wheezes,Fine, Diminished Cough Frequency Intermittent Cough Description Non-productive Sputum Amount None None Sputum Production Method Spontaneous Spontaneous Expectoration Expectoration Respiratory Support BiPAP Nasal/Full Face Mask Full Facial Mask BiPap Delivery Mode Spontaneous Timed/BiPAP Ventilator No No Does patient have a trach No No Chest Tube Present No No Restraints Restraints being used None None None GI Assessment GI changes since this nurse previous No No assessment Abdomen Description Soft,Non-Tender Soft,Non-Tender ,Round ,Round Ostomy present No No Drain Present No No Hernia Present No No All Quadrants -Bowel Sounds Normoactive Normoactive GI Symptoms No Symptoms No Symptoms Bowel Pattern No Bowel No Bowel Movement Movement Flatus Presence Urinary Assessment changes since this nurse previous No assessment Urinary Method Voiding Voiding Voiding Bladder Pattern Due to Void Normal Urine Appearance Clear Urine Color Straw Urine Odor Skin Assessment Skin Color Normal Ashen Ashen Skin Temperature Warm Cool Warm Skin Turgor Rapid Skin Moisture Dry Diaphoretic Moist Skin Texture Smooth Smooth Smooth Perineum Description Intact Normal,Intact Normal,Intact Is the patient on a specialty bed Yes Yes Yes Is There IV Access Yes Yes Yes Central Line Present No No No 02/15/19 02/15/19 02/16/19 20:32 22:00 00:00 Isolation Level Isolation Level(s) Standard Standard Standard Neurological Assessment Neurological changes since this nurse Yes No previous assessment Level of Consciousness Appropriate Awake, Appropriate Appropriate Orientation Oriented to Oriented to Person,Oriented Person,Oriented to Place to Place, Confused Patient Has a Sitter No No No Jaci Coma Scale Eye Opening To Voice Spontaneous To Voice Jaci Coma Scale Motor Obeys Commands Obeys Commands Obeys Commands [place] Coma Scale Verbal Oriented Oriented Oriented [place] Coma Scale Total (15 points) 14 15 14 Pupil [place] PERRL PERRL PERRL Bilateral -Pupil Reaction Brisk Brisk Brisk -Pupil Size (mm) (mm) 3 3 3 Bilateral Lower -Motor response Lifts and holds for 5 sec Bilateral Upper -Motor response Lifts and holds for 5 sec Communication Tools Verbal,Facial Expression, Physical Gestures Psychological Assessment Mood Description Appropriate Anxious, Appropriate Appropriate Speech Pattern Clear, Appropriate Clear, Appropriate Appropriate Rational Thinking Intact Intact Anxiety Level None, At Ease Mild None, At Ease Suicidal Ideation Description None None Feelings of Hopelessness No No Cardiovascular Assessment Cardiovascular changes since this nurse No No No previous assessment Cardiac Rhythm Normal Sinus Normal Sinus Normal Sinus Rhythm (NSR) Rhythm (NSR) Rhythm (NSR) Heart Tones/Sounds S1 & S2,Regular S1 & S2,Regular S1 & S2,Regular Capillary Refill Less than 3 Less than 3 Seconds Seconds Bilateral Dorsalis Pedis -Pulse Quality Thready-1 Thready-1 -Pulse Assessment Method Palpation Palpation Bilateral Radial -Pulse Quality Thready-1 Thready-1 -Pulse Assessment Method Palpation Palpation Does the patient have SCD's on Does the patient have TEDS on Respiratory Assessment Pulmonary changes since this nurse Yes Yes Yes previous assessment Respiratory pattern Normal Tachypnea Normal, Exertional SOB Respiratory Effort Normal,Non- Accessory Normal,Non- Labored Muscle Use Labored Respiratory Depth Normal Deep Normal Chest Expansion Symmetrical Symmetrical Symmetrical Respiratory Symptoms Unable to Lie Unable to Lie Unable to Lie Flat,SOB with Flat,SOB with Flat,SOB with Exertion Exertion Exertion Anterior Bilateral Throughout -Lung Sound Respiratory Phase Inspiratory & Inspiratory & Inspiratory & Expiratory Expiratory Expiratory -Breath Sounds Diminished Coarse Coarse Cough Frequency Cough Description Sputum Amount None None None Sputum Production Method Spontaneous Expectoration Respiratory Support BiPAP BiPAP Nasal/Full Face Mask Full Facial Full Facial Mask Mask BiPap Delivery Mode Spontaneous Spontaneous Timed/BiPAP Timed/BiPAP Ventilator No No No Does patient have a trach No No No Chest Tube Present No No No Restraints Restraints being used None None None GI Assessment GI changes since this nurse previous No No No assessment Abdomen Description Ostomy present Drain Present Hernia Present All Quadrants -Bowel Sounds GI Symptoms No Symptoms Bowel Pattern No Bowel No Bowel Movement Movement Flatus Presence Urinary Assessment changes since this nurse previous No No No assessment Urinary Method Voiding Voiding Voiding Bladder Pattern Due to Void Due to Void Urine Appearance Urine Color Urine Odor Skin Assessment Skin Color Normal Normal Skin Temperature Warm Cool Skin Turgor Rapid Rapid Skin Moisture Moist Dry Skin Texture Smooth Smooth Perineum Description Normal,Intact Is the patient on a specialty bed Yes Yes Is There IV Access Yes Yes Central Line Present No 02/16/19 02/16/19 02/16/19 02:00 04:00 06:00 Isolation Level Isolation Level(s) Standard Standard Standard Neurological Assessment Neurological changes since this nurse No No No previous assessment Level of Consciousness Awake,Alert, Appropriate, Confused Orientation Oriented to Person,Oriented to Place, Oriented to Time,Confused Patient Has a Sitter No No No Jaci Coma Scale Eye Opening Spontaneous Jaci Coma Scale Motor Obeys Commands Jaci Coma Scale Verbal Oriented [place] Coma Scale Total (15 points) 15 Pupil [place] PERRL Bilateral -Pupil Reaction Brisk -Pupil Size (mm) (mm) 4 Bilateral Lower -Motor response Lifts and holds for 5 sec Bilateral Upper -Motor response Lifts and holds for 5 sec Communication Tools Verbal,Facial Expression, Physical Gestures Psychological Assessment Mood Description Appropriate Appropriate Anxious, Appropriate Speech Pattern Appropriate Rational Thinking Intact Anxiety Level None, At Ease None, At Ease Mild Suicidal Ideation Description None Feelings of Hopelessness No Cardiovascular Assessment Cardiovascular changes since this nurse No No No previous assessment Cardiac Rhythm Normal Sinus Rhythm (NSR) Heart Tones/Sounds S1 & S2,Regular Capillary Refill Less than 3 Seconds Bilateral Dorsalis Pedis -Pulse Quality Thready-1 -Pulse Assessment Method Palpation Bilateral Radial -Pulse Quality Thready-1 -Pulse Assessment Method Palpation Does the patient have SCD's on Does the patient have TEDS on Respiratory Assessment Pulmonary changes since this nurse No No No previous assessment Respiratory pattern Tachypnea, Exertional SOB Respiratory Effort Accessory Muscle Use Respiratory Depth Deep Chest Expansion Symmetrical Respiratory Symptoms Unable to Lie Flat,SOB with Exertion,SOB at Rest Anterior Bilateral Throughout -Lung Sound Respiratory Phase Inspiratory & Expiratory -Breath Sounds Diminished Cough Frequency Cough Description Sputum Amount None Sputum Production Method Spontaneous Expectoration Respiratory Support BiPAP Nasal/Full Face Mask Full Facial Mask BiPap Delivery Mode Spontaneous Timed/BiPAP Ventilator No Does patient have a trach No Chest Tube Present No Restraints Restraints being used None None None GI Assessment GI changes since this nurse previous No No assessment Abdomen Description Soft,Non-Tender ,Round Ostomy present No Drain Present No Hernia Present No All Quadrants -Bowel Sounds Normoactive GI Symptoms No Symptoms Bowel Pattern No Bowel Movement Flatus Presence Present Urinary Assessment changes since this nurse previous No No assessment Urinary Method Voiding Voiding Voiding Bladder Pattern Normal Normal Urine Appearance Clear Clear Urine Color Light [place] Yellow Urine Odor Normal Normal Skin Assessment Skin Color Normal Ashen Skin Temperature Warm Warm Skin Turgor Rapid Rapid Skin Moisture Dry Dry Skin Texture Smooth Smooth Perineum Description Normal,Intact Normal,Intact Is the patient on a specialty bed Yes Yes Yes Is There IV Access Yes Yes Yes Central Line Present No No No Physical Exam: 83-year-old black female, confused, distress. General appearance: PRESENT: disheveled, mild distress, obese Eye exam: PRESENT: conjunctival injection, conjunctiva pink, PERRLA. ABSENT: nystagmus, scleral icterus Mouth exam: PRESENT: dry mucosa, neck supple Additional comments: Thyromental distance >3 cm. Mouth opening 2 fingers only. [place]: 3 Teeth exam: PRESENT: dental caries, poor dentation Additional comments: Tooth missing from upper front #1 or 2 Neck exam: PRESENT: full ROM, JVD, thyromegaly. ABSENT: carotid bruit Respiratory exam: PRESENT: decreased breath sounds - Markedly decrease breath sounds. Poor Aeration., tachypnea. ABSENT: accessory muscle use, crackles, rhonchi, wheezes Cardiovascular exam: PRESENT: +S1, +S2, tachycardia. ABSENT: clicks, diastolic murmur, rubs Murmur grade: 3 Pulses: PRESENT: normal carotid pulses, +2 pedal pulses bilateral Vascular exam: PRESENT: normal capillary refill GI/Abdominal exam: PRESENT: hypoactive bowel sounds, soft. ABSENT: ascites, diminished bowel sounds, distended, firm, guarding, mass, Keyes's sign, rebound, rigid, tenderness Gentrourinary exam: ABSENT: erythema, lesions Extremities exam: PRESENT: pedal edema. ABSENT: joint swelling Musculoskeletal exam: PRESENT: normal inspection. ABSENT: tenderness Neurological exam: PRESENT: altered, CN II-XII grossly intact. ABSENT: motor sensory deficit Psychiatric exam: PRESENT: agitated, unusual affect Focused psych exam: PRESENT: psychomotor agitation, restlessness Skin exam: PRESENT: intact. ABSENT: cyanosis, erythema, jaundice, mottled, pallor, petechiae, urticaria, vesicles Results Laboratory Results: 02/16/19 04:21 02/16/19 04:21 02/15/19 02/15/19 02/15/19 13:17 13:17 14:10 WBC RBC Hgb Hct MCV MCH MCHC RDW Plt Count Seg Neutrophils % VBG pH 7.28 L VBG pCO2 93.4 H* VBG HCO3 42.8 H VBG Base Excess 12.6 Sodium Cancelled 136.7 L Potassium Cancelled 5.0 Chloride Cancelled 88 L Carbon Dioxide Cancelled 44 H* Anion Gap Cancelled 5 BUN Cancelled 27 H Creatinine Cancelled 1.52 H Est GFR ( Amer) Cancelled 42 L Est GFR (Non-Af Amer) Cancelled Glucose Cancelled 175 H Calcium Cancelled 9.3 Phosphorus Cancelled 3.6 Magnesium Cancelled 2.1 02/16/19 02/16/19 02/16/19 04:21 04:21 04:21 WBC 8.4 RBC 3.33 L Hgb 10.8 L Hct 33.5 L MCV 101 H MCH 32.3 MCHC 32.1 RDW 16.8 H Plt Count 237 Seg Neutrophils % Not Reportable VBG pH 7.28 L VBG pCO2 116.6 H* VBG HCO3 53.1 H VBG Base Excess 21.2 Sodium 138.5 Potassium 5.4 H Chloride 91 L Carbon Dioxide 45 H* Anion Gap 3 L BUN 26 H Creatinine 1.26 H Est GFR ( Amer) 52 L Est GFR (Non-Af Amer) Glucose 115 H Calcium 9.2 Phosphorus 3.5 Magnesium 2.2 02/13/19 04:15 Clean Catch Midstream Urine Culture - Final Staph Coagulase Negative 02/12/19 02/12/19 02/12/19 18:46 18:46 18:46 Creatine Kinase 64 CK-MB (CK-2) 2.93 Troponin I < 0.012 NT-Pro-B Natriuret Pep [id number] H 02/13/19 02/13/19 04:11 04:11 Creatine Kinase 50 CK-MB (CK-2) 3.58 Troponin I < 0.012 NT-Pro-B Natriuret Pep [id number] H Impressions: Chest Ultrasound 02/12/19 17:35 IMPRESSION: No pleural effusions. Chest X-Ray 02/13/19 00:00 IMPRESSION: Cardiomegaly and pulmonary vascular prominence. No pulmonary edema or pleural effusions Renal Ultrasound 02/13/19 00:00 IMPRESSION: There are chronic appearing changes in the kidneys with no acute finding. Assessment & Plan - Diagnosis (1) Acute hypercapnic respiratory failure Is this a current diagnosis for this admission?: Yes (2) Severe pulmonary arterial systolic hypertension Is this a current diagnosis for this admission?: Yes Plan: Pa Catheter, milrinone, dvt prophylaxis (3) Acute exacerbation of chronic obstructive pulmonary disease (COPD) Is this a current diagnosis for this admission?: Yes (4) Acute metabolic encephalopathy Is this a current diagnosis for this admission?: Yes (5) Acute kidney failure Qualifiers: Acute renal failure type: unspecified Qualified Code(s): N17.9 - Acute kidney failure, unspecified Is this a current diagnosis for this admission?: Yes Plan: Improved (6) CKD (chronic kidney disease) stage 2, GFR 60-89 ml/min Is this a current diagnosis for this admission?: Yes (7) Oxygen dependent Is this a current diagnosis for this admission?: Yes (8) Hyperkalemia Is this a current diagnosis for this admission?: Yes (9) Elevated brain natriuretic peptide (BNP) level Is this a current diagnosis for this admission?: Yes - Time Time Spent with patient: 35 or more minutes Total Critical Time (Minutes): 130 Medications reviewed and adjusted accordingly: Yes Disposition: ICU. - Inpatient Certification Based on my medical assessment, after consideration of the patient's comorbidities, presenting symptoms, or acuity I expect that the services needed warrant INPATIENT care.: Yes I certify that my determination is in accordance with my understanding of Medic are's requirements for reasonable and necessary INPATIENT services [42 CFR 412.3e].: Yes Medical Necessity: Significant Comorbidiites Make Outpatient Treatment Too Risky, Need Close Monitoring Due to Risk of Patient Decompensation, Need For Continuous Telemetry Monitoring, Need for Nebulizer Therapy and Monitoring of Response, Need for Pain Control, Risk of Complication if Not Cared For in Hospital 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 Her breath sounds show poor air entry. When placed on BiPAP she had a poor minute ventilation (less than 6 with low volumes of only 250). I do lengthy discussion with the son and the family about the best course of therapy. My concern is that she has significant space ventilation and she has not improved with conservative therapy. Given the elevation in her PA pressures I am concerned that there is a another reason for her pulmonary hypertension in addition to the hypoxia from her COPD. Given the fact that she has a sister who is on sildena devonte for pulmonary hypertension this appears to be a familial genetic disorder. I have sent labs for vasculitis, lupus, as well as a phospholipid and complement studies. For today we will start milrinone to see if there is any reversibility of her pulmonary hypertension. Follow cardiac index systemic blood pressures. Wedge pressures are 12-14 indicative of no left heart etiology for her pulmonary hypertension. Given her absence of breath sounds we will continue beta agonist therapy and steroids. Have ordered CT scan of chest. Unfortunately, given her recent renal failure and low GFR, unable to do with contrast 02.15.19: She has shown subtle but gradual improvement. She is more agreeable to BiPAP but often requires anxiolytics for this. Her first blood draw had hemolysis and we are awaiting a repeat to follow her potassium and creatinine. We will change to a sodium chloride drip to assure adequate volume. She is not a Diamox candidate at this point. Continue supportive care and BiPAP while sleeping. The patient has chronic anxiety and will try to control this. Continue to encourage compliance with therapy. Recommendations for anticoagulation for who class III are not currently recommended other than routine DVT prophylaxis. Steroids with wean over the next few days. Waiting ANCA and alpha-1 studies. Had hyperkalemia and will continue to follow and monitor. She does have acute kidney injury which we are concerned comes from poor left ventricular cardiac output. Check labs and treat supportively. 02.14.19: Patient admitted to the ICU from stepdown unit yesterday. She responded well to BiPAP therapy with a reduction in PEEP. She had a echocardiogram done which shows significant right ventricular dilatation right atrial dilatation consistent with severe pulmonary hypertension. She refused BiPAP last night. Had lengthy discussion with her about the need for appropriate therapy. Patient has severe pulmonary hypertension WHO class III. In general there are not many treatments for amelioration. She has significant emphysema and the possibility of alpha-1 antitrypsin disease needs to be considered. Although this can be considered an acute phase reactant she does not appear to be in any acute spasm. The current treatments for who grade 3: Pulmonary Hypertension are adequate oxygenation improvement in overall pulmonary function. I have sent lab work for ANCA, alpha-1 antitrypsin. Concerned that she has persistent renal failure be reflective of poor LV filling with adequate function. Await family to discuss options and plans further. Discontinued Rocephin and continue azithromycin for anti-inflammatory effect. Continue steroids and beta agonist therapy.
--- NOTE | 2019-02-16 14:18 | Operative Report ---
Bedside Procedure - History of Present Illness History of Present Illness: Patient is a 63-year-old black female with a history of Oxygen dependent COPD presented to ED with worsening shortness of breath. Time of onset is difficult to ascertain but appears to be over the last 2-4 days. She was also seen in the emergency department a few weeks ago and started on antibiotics and steroids. She has not taken those in about a week now. Found to have significant pulmonary hypertension on Echocardiogram. Worsening respiratory status. Indication for Procedure: Sever pulmonary hypertension on Echo with need for PA catheter Date: 02/16/19 Surgeon: JENNIFER REGALADO - Central Line Right Internal jugular Time completed: 09:00 Consent obtained: Yes Central line pre-insertion: Sterile PPE donned, Chloraprep applied, Sterile drapes applied Central line size (Fr.): 9 Central line lumen type: Cordis/Introducer Anesthetic type: 1% Lidocaine mL's of anesthesia: 3 Ultrasound guided: Yes CM at insertion site: 15 Line secured with sutures: Yes Central line post-insertion: Blood return from lumens, Biopatch applied, Sutured, Sterile dressing applied, Position confirmed w/ CXR, Other - US confirmation. Needle seen in IJ, catheter seen in IJ Number of attempts: 1 Complications: No Notes: 02/16/19 14:05 She was prepped and draped with chlorhexidine and allowed to dry. Full sterile barrier precautions were used and full precautions were used by the this author. Using dynamic sterile ultrasound guidance percent lidocaine was instilled in the prefascial space. At this point a Quinke-Seldinger needle was placed in the right IJ in longitudinal fashion. The needle bevel was seen in intra-luminally. At this point the wire was placed in the needle was removed. Needle was removed a small incision was made in the skin to facilitate placement of the dilator catheter which were placed simultaneously. The dilator was then removed the wire in situ. Under ultrasound catheter was seen in the internal jugular lumen. This blood was aspirated from the outside port. This was then flushed with sterile saline. Catheter was sutured in place. Catheter will be reduced for placement of a PA catheter which will be dictated in a another note. Seizure excludes critical care time
--- NOTE | 2019-02-16 14:26 | Progress Note ---
Provider Note Provider Note: Bedside procedure Procedure: Emergent intubation Consent: Attained from sonAce Pre-Operative diagnosis: Acute respiratory failure with hypercarbia Post-Operative diagnsosis: Same Proceduralist: DO CASSIE Orozco [employer] Faculty: ICU nursing and respiratory staff Anesthetic: Sequence intubation with 100 mics of fentanyl 20 mg of etomidate and 100 mg of rocuronium EBL: None Complications: None. Slightly expected tracheal distance however intubated under a grade 2 view. Done under Ultrasound Guidance?:N/A Biopatch and sterile dressing? : N/A Sutured in Place?: N/A Procedure She was appropriately identified secondary ongoing critical care chart check name dinh. Case was discussed with the family who were in agreement and we proceeded. Adjunctive equipment for difficult airway was present and ready for use. Was placed on 100% oxygen. She was given 100 mcg of fentanyl as a preemptive sedated of analgesia agent. Next 20 mg of etomidate followed by 100 mg of rocuronium was given. Patient had successful absence of respirations by 60 seconds. However during the direct laryngoscopy she was not quite relaxed. Poor view was seen in the glide scope was called for. Meanwhile the patient's musculature was more relaxed and a grade 2 view was able to be seen in the trachea was intubated without difficulty. There were no gastric sounds on first insufflation bilateral breath sounds were heard with the ET tube at 24 cm at the lip. End-tidal CO2 exchange was positive chest x-ray shows ET tube in appropriate mid tracheal position. Patient tolerated procedure well there was no hemodynamic or hypoxic complications. This procedure excludes critical care time
[2019-02-16] MEDS: MILRINONE LACTATE/D5W 20 MG/100 ML RTUINJ IV PRN (14:27)
[2019-02-16] MEDS: METHYLPREDNISOLONE INJ 40 MG/1 ML SDV IV SCH ×2 (14:30→22:43)
[2019-02-16] MEDS: CETIRIZINE 10 MG TABLET PO SCH (14:30)
[2019-02-16] MEDS: FAMOTIDINE 20 MG TABLET PO SCH ×2 (14:31→22:43)
[2019-02-16] MEDS: AZITHROMYCIN 500 MG in DEXTROSE 5%-WATER 250 ML IV SCH (14:31)
[2019-02-16] MEDS: NORMAL SALINE 1000 ML 1,000 ML IV PRN (14:34)
--- NOTE | 2019-02-16 14:34 | Progress Note ---
Provider Note Provider Note: Bedside procedure Procedure: Right radial arterial catheter insertion Consent: Attained from sonAce Pre-Operative diagnosis: Acute respiratory failure with hypercarbia Post-Operative diagnsosis: Same Proceduralist: DO Ernesto [facility] Lead Assistant Manager: ICU nursing and respiratory staff Anesthetic: Sequence intubation with 100 mics of fentanyl 20 mg of etomidate and 100 mg of rocuronium EBL: None Complications: None. Slightly expected tracheal distance however intubated under a grade 2 view. Done under Ultrasound Guidance?:N/A Biopatch and sterile dressing? : N/A Sutured in Place?: N/A Procedure She was appropriately identified secondary ongoing critical care chart check name dinh. Case was discussed with the family who were in agreement and we proceeded. Adjunctive equipment for difficult airway was present and ready for use. Was placed on 100% oxygen. She was given 100 mcg of fentanyl as a preemptive sedated of analgesia agent. Next 20 mg of etomidate followed by 100 mg of rocuronium was given. Patient had successful absence of respirations by 60 seconds. However during the direct laryngoscopy she was not quite relaxed. Poor view was seen in the glide scope was called for. Meanwhile the patient's musculature was more relaxed and a grade 2 view was able to be seen in the trachea was intubated without difficulty. There were no gastric sounds on first insufflation bilateral breath sounds were heard with the ET tube at 24 cm at the lip. End-tidal CO2 exchange was positive chest x-ray shows ET tube in appropriate mid tracheal position. Patient tolerated procedure well there was no hemodynamic or hypoxic complications. This procedure excludes critical care time
--- NOTE | 2019-02-16 14:41 | Progress Note ---
Provider Note Provider Note: Bedside procedure Procedure: Placement of right heart catheter (PA-catheter) Consent: Attained from sonAce Pre-Operative diagnosis: Severe Pulmonary Hypertension Post-Operative diagnsosis: Same Proceduralist: [facility] Contact Representative: ICU nursing and respiratory staff Anesthetic: Conscious sedation EBL: 10 ml Complications: None. Done under Ultrasound Guidance?:N/A Biopatch and sterile dressing? : Yed Sutured in Place?: N/A Procedure Patient was appropriately identified secondary ongoing critical care, chart check, name bracelet. Case was discussed with the family who were in agreement and we proceeded. Adjunctive equipment was present and ready for use. The right wrist was prepped and draped with chlorhexidine and allowed to dry. Regional barrier sterile precautions were used sterile gloves and nonsterile mask were used. The radial artery was palpated and a Seldinger needle was placed. Good pulsatile blood flow was noted and the wire was placed. Despite the wire being placed we were unable to pass a catheter. A more proximal site was chosen and this was successful with a Seldinger needle. Wire was placed in the needle was removed. Next a 20-gauge short cath was placed over wire using typical Seldinger technique. After this the wire was removed and a good pulsatile blood flow was noted and was allowed to occur between 3-4 heartbeats to allow for cleansing of debris up. Catheter was then placed on a syringe sutured in place the syringe was then removed and the catheter was affixed to transducer. Reapplication chlorhexidine occurred and a sterile dressing was applied. Patient tolerated procedure well there were no complications. This procedure excludes critical care time.
[2019-02-16] MEDS: FENTANYL CITRATE/PF 600 MCG/60 ML BAG IV PRN (15:01)
[2019-02-16 15:52] LABS: ARTERIAL BLOOD BASE EXCESS 12.2 mmol/L; ARTERIAL BLOOD HCO3 38.5 mmol/L (20-24); ARTERIAL BLOOD O2 SATURATION 66.3 % (94-98); ARTERIAL BLOOD PCO2 59.9 mmHg (35-45); ARTERIAL BLOOD TOTAL CO2 40.3 mmol/L (21-25)
[2019-02-16 15:53] LABS: ARTERIAL BLOOD FIO2 40%; ARTERIAL BLOOD PH 7.43 (7.35-7.45)
[2019-02-16 15:54] LABS: ARTERIAL BLOOD PO2 34.8 mmHg (80-100)
[2019-02-16] MEDS ORDERED: VASOPRESSIN INJ 20 UNIT/1 ML VIAL ONE (18:15)
--- NOTE | 2019-02-16 18:22 | RADIOLOGY REPORT (SQ) ---
EXAM DESCRIPTION: CT CHEST WITHOUT COMPLETED DATE/TIME: 02/16/2019 5:44 pm REASON FOR STUDY: pulmonary hypertension with respiratory failure COMPARISON: None. TECHNIQUE: CT scan performed of the chest without intravenous contrast. Images reviewed with lung, soft tissue and bone windows. Reconstructed coronal and sagittal MPR images reviewed. All images st ored on PACS. All CT scanners at this facility use dose modulation, iterative reconstruction, and/or weight based d osing when appropriate to reduce radiation dose to as low as reasonably achievable (ALARA). [facility]: Dose Right [facility]: CareDose [facility]: Dose Right [facility]: Teradose 4D [facility]: [employer] RADIATION DOSE: CT Rad equipment meets quality standard of care and radiation dose reduction techniq ues were employed. CTDIvol: 7.4 mGy. DLP: 282 mGy-cm. mGy. LIMITATIONS: No technical limitations. FINDINGS: LUNGS AND PLEURA: Decreased attenuation of the upper lungs. Small right pleural effusion with mild adjacent compressive atelectasis. Mild left basilar atelectasis. HILAR AND MEDIASTINAL STRUCTURES: No identified masses or abnormal nodes. No obvious aneurysm. HEART AND VASCULAR STRUCTURES: Mild enlargement of the main pulmonary artery measuring 3.2 cm. . Sm all pericardial effusion. UPPER ABDOMEN: No significant findings. Limited exam. THYROID AND OTHER SOFT TISSUES: No masses. No adenopathy. BONES: No significant finding. HARDWARE: Endotracheal tube tip terminating 2.1 cm above the patricia. Right internal jugular pulmonar y catheter terminating within the right pulmonary artery. Subdiaphragmatic course of an enteric tube with nonvisualization of the tip. OTHER: No other significant findings. IMPRESSION: Decreased attenuation of the bilateral upper lungs possibly related to underlying emphys ayden. Small right pleural effusion. Mild bibasilar atelectasis. Mild enlargement of the main pulmonary artery, a finding compatible with provided history of pulmonar y arterial hypertension. Small pericardial effusion. TECHNICAL DOCUMENTATION: JOB ID: [id number] Quality ID # [id number]: Final reports with documentation of one or more dose reduction techniques (e.g., Au tomated exposure control, adjustment of the mA and/or kV according to patient size, use of iterative reconstruction technique) 2010 [employer]- All Rights Reserved Reading location - IP/workstation name: [email or web address]
[2019-02-16] MEDS ORDERED: DEXTROSE 5%-WATER 250 ML with VASOPRESSIN 100 UNIT IV PRN ×2 (18:27)
--- NOTE | 2019-02-16 18:35 | Operative Report ---
Bedside Procedure - History of Present Illness History of Present Illness: Patient is a 63-year-old black female with a history of Oxygen dependent COPD presented to ED with worsening shortness of breath. Time of onset is difficult to ascertain but appears to be over the last 2-4 days. She was also seen in the emergency department a few weeks ago and started on antibiotics and steroids. She has not taken those in about a week now. Found to have significant pulmonary hypertension on Echocardiogram. Worsening respiratory status. Indication for Procedure: Severe respiratory failure with ground glass appearance on CT scan Date: 02/16/19 Surgeon: JENNIFER REGALADO - Procedure: Bedside flexible bronchoscopy
--- NOTE | 2019-02-16 18:44 | Progress Note ---
Provider Note Provider Note: Bedside Procedure - History of Present Illness History of Present Illness: Patient is a 63-year-old black female with a history of Oxygen dependent COPD presented to ED with worsening shortness of breath. Time of onset is difficult to ascertain but appears to be over the last 2-4 days. She was also seen in the emergency department a few weeks ago and started on antibiotics and steroids. She has not taken those in about a week now. Found to have significant pulmonary hypertension on Echocardiogram. Worsening respiratory status. Procedure: Bedside Flexible Bronchoscopy, diagnostic Indication for Procedure: Severe respiratory failure with ground glass appearance on CT scan Postprocedure diagnosis: Same; no evidence to support diffuse alveolar hemorrhage Date: 02/16/19 Surgeon: JENNIFER REGALADO - Procedure: Bedside flexible bronchoscopy Environmental Change Analyst: bedside ICU nurses Blood loss: None Complications: None Anesthesia: Conscious sedation with Fentanyl bolus, on Propofol. Continuous hemodynamic monitoring, Previously intubated Was approved identified secured ongoing critical care, chart check, name bracelet. Timeout was called prior to the procedure. She had groundglass appearance on CT scan of the chest with significant interstitial changes. The need for bronchoscopic specimen was essential and this was to also rule out diffuse alveolar hemorrhage. The bronchoscope was entered through an already present #8 ET tube. There is some mild mucus obstruction at the end of the ET tube but not significant. Specifically there was no mucosal inflammation or bleeding. The right lobe was interrogated first. Normal anatomy was noted in the right upper lobe right middle lobe and right lower lobe segments. No significant mucus obstruction, no masses, no foreign bodies were seen. The right middle lobe was chosen a site to determine diffuse alveolar hemorrhage and obtain specimens for BAL. 3 sequential aliquots were used without any increase in red blood cell appearance. Specifically there was no blood noted. The samples, which were aspirated, were sent for studies to the lab. Next the left lung was interrogated. The lingula segment was chosen a site of access for BAL. 3 sequential aliquots were instilled without difficulty. Specifically there was no uptake in red blood cell content or discoloration. Samples were sent for studies to the lab. Of note the appearance of the specimens although not bloody appeared somewhat lipoid in content. Concern for proteinosis to be considered. She tolerated procedure well. She was placed on 100% throughout the procedure. There was no hemodynamic instability no hypoxia. There was no bleeding. This procedure excludes critical care time
[2019-02-16 19:00] LABS: ARTERIAL BLOOD BASE EXCESS 8.5 mmol/L; ARTERIAL BLOOD H2CO3 1.66 mmol/L (1.05-1.35); ARTERIAL BLOOD HCO3 34.5 mmol/L (20-24); ARTERIAL BLOOD O2 SATURATION 96.3 % (94-98); ARTERIAL BLOOD PCO2 55.1 mmHg (35-45); ARTERIAL BLOOD PH 7.41 (7.35-7.45); ARTERIAL BLOOD PO2 84.8 mmHg (80-100); ARTERIAL BLOOD TOTAL CO2 36.1 mmol/L (21-25)
[2019-02-16 19:01] LABS: ARTERIAL BLOOD FIO2 40%
[2019-02-16 19:40] LABS: ARTERIAL BLOOD BASE EXCESS 8.1 mmol/L; ARTERIAL BLOOD H2CO3 1.61 mmol/L (1.05-1.35); ARTERIAL BLOOD HCO3 33.8 mmol/L (20-24); ARTERIAL BLOOD O2 SATURATION 77.5 % (94-98); ARTERIAL BLOOD PCO2 53.4 mmHg (35-45); ARTERIAL BLOOD PH 7.42 (7.35-7.45); ARTERIAL BLOOD TOTAL CO2 35.4 mmol/L (21-25)
[2019-02-16 20:54] LABS: FLUID APPEARANCE SLIGHTLY HAZY; FLUID COLOR COLORLESS; FLUID SOURCE LUNG; FLUID TYPE BRONCHIAL LAVAGE; FLUID VISCOSITY LIQUID
[2019-02-16 21:55] LABS: FLUID APPEARANCE SLIGHTLY HAZY; FLUID COLOR COLORLESS; FLUID SOURCE LUNG; FLUID TYPE BRONCHIAL WASH; FLUID VISCOSITY LIQUID
[2019-02-16] MEDS: ESCITALOPRAM OXALATE 10 MG TABLET PO SCH (22:43)
[2019-02-16 23:50] LABS: ARTERIAL BLOOD BASE EXCESS 10.7 mmol/L; ARTERIAL BLOOD H2CO3 2.08 mmol/L (1.05-1.35); ARTERIAL BLOOD HCO3 38.2 mmol/L (20-24); ARTERIAL BLOOD PH 7.36 (7.35-7.45); ARTERIAL BLOOD PO2 42.3 mmHg (80-100); ARTERIAL BLOOD TOTAL CO2 40.4 mmol/L (21-25)
[2019-02-16 23:51] LABS: ARTERIAL BLOOD FIO2 50%
[2019-02-16 23:52] LABS: ARTERIAL BLOOD PCO2 69.1 mmHg (35-45)
[2019-02-17] MEDS: PROPOFOL 1,000 MG/100 ML INFUS..BTL IV PRN ×5 (00:11→18:57)
[2019-02-17] MEDS: IPRATROPIUM/ALBUTEROL 0.5-2.5 MG/3 ML AMPUL NEB SCH ×4 (02:20→19:26)
[2019-02-17] MEDS: MILRINONE LACTATE/D5W 20 MG/100 ML RTUINJ IV PRN ×2 (02:34→15:03)
[2019-02-17 04:07] LABS: ARTERIAL BLOOD BASE EXCESS 6.4 mmol/L; ARTERIAL BLOOD H2CO3 2.19 mmol/L (1.05-1.35); ARTERIAL BLOOD HCO3 35.6 mmol/L (20-24); ARTERIAL BLOOD PH 7.31 (7.35-7.45); ARTERIAL BLOOD PO2 45.9 mmHg (80-100); ARTERIAL BLOOD TOTAL CO2 37.9 mmol/L (21-25)
[2019-02-17 04:08] LABS: ARTERIAL BLOOD BASE EXCESS 5.7 mmol/L; ARTERIAL BLOOD FIO2 50%; ARTERIAL BLOOD H2CO3 1.82 mmol/L (1.05-1.35); ARTERIAL BLOOD HCO3 32.6 mmol/L (20-24); ARTERIAL BLOOD O2 SATURATION 93.7 % (94-98); ARTERIAL BLOOD PCO2 60.4 mmHg (35-45); ARTERIAL BLOOD PH 7.35 (7.35-7.45); ARTERIAL BLOOD PO2 73.4 mmHg (80-100); ARTERIAL BLOOD TOTAL CO2 34.5 mmol/L (21-25)
[2019-02-17 04:08] LABS: ARTERIAL BLOOD FIO2 50
[2019-02-17 04:09] LABS: ARTERIAL BLOOD PCO2 72.7 mmHg (35-45)
[2019-02-17 04:10] LABS: HEMATOCRIT 28.7 % (36.0-47.0); HEMOGLOBIN 9.3 g/dL (12.0-15.5); MEAN CORPUSCULAR HEMOGLOBIN 32.5 pg (27.0-33.4); MEAN CORPUSCULAR HGB CONC 32.3 g/dL (32.0-36.0); MEAN CORPUSCULAR VOLUME 101 fl (80-97); PLATELET COUNT 205 10^3/uL (150-450); RED BLOOD COUNT 2.85 10^6/uL (3.72-5.28); RED CELL DISTRIBUTION WIDTH 17.1 % (11.5-14.0); WHITE BLOOD COUNT 9.1 10^3/uL (4.0-10.5)
[2019-02-17 04:11] LABS: PROTHROMBIN TIME 14.2 SEC (11.4-15.4)
[2019-02-17 04:12] LABS: PARTIAL THROMBOPLASTIN TIME 26.2 SEC (23.5-35.8)
[2019-02-17 04:24] LABS: A TYPE INFLUENZA AG NEGATIVE (NEGATIVE); B INFLUENZA AG NEGATIVE (NEGATIVE)
[2019-02-17 04:30] LABS: ALBUMIN 2.9 g/dL (3.5-5.0); ALKALINE PHOSPHATASE 41 U/L (38-126); ANION GAP 8 (5-19); ASPARTATE AMINO TRANSFERASE 19 U/L (14-36); BILIRUBIN,DIRECT 0.1 mg/dL (0.0-0.4); BILIRUBIN,TOTAL 0.4 mg/dL (0.2-1.3); BLOOD UREA NITROGEN 19 mg/dL (7-20); CALCIUM 8.9 mg/dL (8.4-10.2); CARBON DIOXIDE 36 mmol/L (22-30); CHLORIDE 92 mmol/L (98-107); GLUCOSE 181 mg/dL (75-110); PHOSPHORUS 2.9 mg/dL (2.5-4.5); POTASSIUM 4.6 mmol/L (3.6-5.0); TOTAL PROTEIN 5.3 g/dL (6.3-8.2)
[2019-02-17 04:58] LABS: ABSOLUTE LYMPHOCYTES# (MANUAL) 0.7 10^3/uL (0.5-4.7); ABSOLUTE MONOCYTES # (MANUAL) 0.2 10^3/uL (0.1-1.4); BAND NEUTROPHILS % (MANUAL) 3 % (3-5); BASOPHILS % (MANUAL) 0 % (0-2); EOSINOPHILS % (MANUAL) 0 % (0-6); LYMPHOCYTES % (MANUAL) 8 % (13-45); MONOCYTES % (MANUAL) 2 % (3-13); SEGMENTED NEUTROPHILS % (MAN) 87 % (42-78); TOTAL CELLS COUNTED 100
[2019-02-17 04:59] LABS: ANISOCYTOSIS 1+
[2019-02-17 05:00] LABS: PLATELET COMMENT ADEQUATE
[2019-02-17] MEDS ORDERED: FUROSEMIDE INJ/PF 100 MG/10 ML SDV ONE (05:01)
[2019-02-17] MEDS: HEPARIN SOD (PORCINE) 5,000 UNIT/ML 1 ML VIAL SUBCUT SCH ×3 (05:06→22:29)
[2019-02-17] MEDS ORDERED: NORMAL SALINE 250 ML with FUROSEMIDE 250 MG IV PRN ×2 (05:06)
--- NOTE | 2019-02-17 06:23 | RADIOLOGY REPORT (SQ) ---
EXAM DESCRIPTION: CHEST SINGLE VIEW COMPLETED DATE/TIME: 02/17/2019 6:10 am REASON FOR STUDY: respiratory failure COMPARISON: 02/16/2019 NUMBER OF VIEWS: One view. TECHNIQUE: Single frontal radiographic image of the chest acquired. LIMITATIONS: None. FINDINGS: LUNGS AND PLEURA: There has been a slight increase in basilar airspace disease possibly ed ayden. MEDIASTINUM AND HILAR STRUCTURES: Stable heart size and mediastinal structures. HEART AND VASCULAR STRUCTURES: Stable appearance. SUPPORT DEVICES: Appropriate location without change. BONES: No acute findings. OTHER: No other significant finding. IMPRESSION: Increase in bibasilar infiltrate as described. Support lines and tubes remain in satisf actory position. TECHNICAL DOCUMENTATION: JOB ID: [id number] [employer]- All Rights Reserved Reading location - IP/workstation name: [email or web address]
[2019-02-17] MEDS: BUDESONIDE NEB 0.5 MG/2 ML AMPUL NEB SCH ×2 (07:38→19:26)
[2019-02-17 08:33] LABS: ARTERIAL BLOOD BASE EXCESS 10.5 mmol/L; ARTERIAL BLOOD H2CO3 2.04 mmol/L (1.05-1.35); ARTERIAL BLOOD HCO3 37.9 mmol/L (20-24); ARTERIAL BLOOD O2 SATURATION 71.7 % (94-98); ARTERIAL BLOOD PCO2 67.7 mmHg (35-45); ARTERIAL BLOOD PH 7.37 (7.35-7.45)
[2019-02-17 08:54] LABS: ARTERIAL BLOOD FIO2 50%; ARTERIAL BLOOD PO2 40.4 mmHg (80-100)
[2019-02-17] MEDS: METHYLPREDNISOLONE INJ 40 MG/1 ML SDV IV SCH ×2 (09:51→22:29)
[2019-02-17] MEDS: FAMOTIDINE 20 MG TABLET PO SCH ×2 (09:51→22:29)
[2019-02-17] MEDS: CETIRIZINE 10 MG TABLET PO SCH (09:51)
[2019-02-17] MEDS: SPIRONOLACTONE 25 MG TABLET PO SCH (09:53)
[2019-02-17] MEDS: AZITHROMYCIN 500 MG in DEXTROSE 5%-WATER 250 ML IV SCH (10:05)
--- NOTE | 2019-02-17 10:27 | PDOC PROGRESS REPORT ---
Subjective Progress Note for:: 02/17/19 Subjective:: Patient is intubated and sedated Reason For Visit: She is intubated for respiratory distress secondary to COPD, plumonary HTN, PNA v aspiration. In addition she is on milrinone and vasopressin. Physical Exam Vital Signs: Temp Pulse Resp BP Pulse Ox 98.4 F 105 H 14 123/56 L 100 02/16/19 17:56 02/17/19 08:00 02/17/19 07:37 02/17/19 08:00 02/17/19 08:00 Intake & Output 02/16/19 02/17/19 02/18/19 06:59 06:59 06:59 Intake Total 540 2813 Output Total 1500 1215 725 Balance -960 1598 -725 Weight 78.9 kg 80.9 kg 80.9 kg General appearance: PRESENT: no acute distress Additional Comments: Sedated Eye exam: PRESENT: PERRLA Additional comments: ETT and OG present Respiratory exam: PRESENT: crackles - Faint, unlabored Cardiovascular exam: PRESENT: RRR Murmur grade: 3 Pulses: PRESENT: normal carotid pulses, normal radial pulses Vascular exam: PRESENT: normal capillary refill GI/Abdominal exam: PRESENT: soft Rectal exam: PRESENT: deferred Gentrourinary exam: PRESENT: indwelling catheter Extremities exam: PRESENT: full ROM Neurological exam: PRESENT: altered Additional comments: Sedated Skin exam: PRESENT: warm Results Laboratory Results: 02/17/19 03:46 02/17/19 03:46 02/16/19 02/16/19 02/16/19 11:15 15:37 18:30 WBC RBC Hgb Hct MCV MCH MCHC RDW Plt Count Seg Neutrophils % Carbonic Acid 1.77 H 1.80 H HCO3/H2CO3 Ratio 21:1 21:1 ABG pH 7.42 7.43 ABG pCO2 58.7 H 59.9 H ABG pO2 34.6 L* 34.8 L* ABG HCO3 37.3 H 38.5 H ABG O2 Saturation 65.8 L 66.3 L ABG Base Excess 11.0 12.2 FiO2 40% 40% Sodium Potassium Chloride Carbon Dioxide Anion Gap BUN Creatinine Est GFR ( Amer) Glucose Lactic Acid Calcium Phosphorus Magnesium Total Bilirubin AST Alkaline Phosphatase Ammonia Total Protein Albumin Fluid Type BRONCHIAL LAVAGE Fluid Source LUNG Fluid Color COLORLESS Fluid Appearance SLIGHTLY HAZY Fluid Viscosity LIQUID Fluid WBC 23 Fluid RBC 34 02/16/19 02/16/19 02/16/19 18:30 18:46 19:28 WBC RBC Hgb Hct MCV MCH MCHC RDW Plt Count Seg Neutrophils % Carbonic Acid 1.66 H 1.61 H HCO3/H2CO3 Ratio 20:1 20:1 ABG pH 7.41 7.42 ABG pCO2 55.1 H 53.4 H ABG pO2 84.8 42.0 L ABG HCO3 34.5 H 33.8 H ABG O2 Saturation 96.3 77.5 L ABG Base Excess 8.5 8.1 FiO2 40% 49% Sodium Potassium Chloride Carbon Dioxide Anion Gap BUN Creatinine Est GFR ( Amer) Glucose Lactic Acid Calcium Phosphorus Magnesium Total Bilirubin AST Alkaline Phosphatase Ammonia Total Protein Albumin Fluid Type BRONCHIAL WASH Fluid Source LUNG Fluid Color COLORLESS Fluid Appearance SLIGHTLY HAZY Fluid Viscosity LIQUID Fluid WBC 1062 Fluid RBC 108 02/16/19 02/17/19 02/17/19 23:30 03:46 03:46 WBC RBC Hgb Hct MCV MCH MCHC RDW Plt Count Seg Neutrophils % Carbonic Acid 2.08 H 1.82 H HCO3/H2CO3 Ratio 18:1 17:1 ABG pH 7.36 7.35 ABG pCO2 69.1 H* 60.4 H ABG pO2 42.3 L 73.4 L ABG HCO3 38.2 H 32.6 H ABG O2 Saturation 74.0 L 93.7 L ABG Base Excess 10.7 5.7 FiO2 50% 50% Sodium Potassium Chloride Carbon Dioxide Anion Gap BUN Creatinine Est GFR ( Amer) Glucose Lactic Acid Calcium Phosphorus Magnesium Total Bilirubin AST Alkaline Phosphatase Ammonia < 8.7 L Total Protein Albumin Fluid Type Fluid Source Fluid Color Fluid Appearance Fluid Viscosity Fluid WBC Fluid RBC 02/17/19 02/17/19 02/17/19 03:46 03:46 03:46 WBC 9.1 RBC 2.85 L Hgb 9.3 L Hct 28.7 L MCV 101 H MCH 32.5 MCHC 32.3 RDW 17.1 H Plt Count 205 Seg Neutrophils % Not Reportable Carbonic Acid HCO3/H2CO3 Ratio ABG pH ABG pCO2 ABG pO2 ABG HCO3 ABG O2 Saturation ABG Base Excess FiO2 Sodium 136.4 L Potassium 4.6 Chloride 92 L Carbon Dioxide 36 H Anion Gap 8 BUN 19 Creatinine 1.22 Est GFR ( Amer) 54 L Glucose 181 H Lactic Acid 5.1 H Calcium 8.9 Phosphorus 2.9 Magnesium 2.2 Total Bilirubin 0.4 AST 19 Alkaline Phosphatase 41 Ammonia Total Protein 5.3 L Albumin 2.9 L Fluid Type Fluid Source Fluid Color Fluid Appearance Fluid Viscosity Fluid WBC Fluid RBC 02/17/19 02/17/19 03:52 08:10 WBC RBC Hgb Hct MCV MCH MCHC RDW Plt Count Seg Neutrophils % Carbonic Acid 2.19 H 2.04 H HCO3/H2CO3 Ratio 16:1 18:1 ABG pH 7.31 L 7.37 ABG pCO2 72.7 H* 67.7 H ABG pO2 45.9 L 40.4 L* ABG HCO3 35.6 H 37.9 H ABG O2 Saturation 76.0 L 71.7 L ABG Base Excess 6.4 10.5 FiO2 50 50% Sodium Potassium Chloride Carbon Dioxide Anion Gap BUN Creatinine Est GFR ( Amer) Glucose Lactic Acid Calcium Phosphorus Magnesium Total Bilirubin AST Alkaline Phosphatase Ammonia Total Protein Albumin Fluid Type Fluid Source Fluid Color Fluid Appearance Fluid Viscosity Fluid WBC Fluid RBC 02/12/19 02/12/19 02/12/19 18:46 18:46 18:46 Creatine Kinase 64 CK-MB (CK-2) 2.93 Troponin I < 0.012 NT-Pro-B Natriuret Pep 41006 H 02/13/19 02/13/19 04:11 04:11 Creatine Kinase 50 CK-MB (CK-2) 3.58 Troponin I < 0.012 NT-Pro-B Natriuret Pep [id number] H Impressions: Chest Ultrasound 02/12/19 17:35 IMPRESSION: No pleural effusions. Renal Ultrasound 02/13/19 00:00 IMPRESSION: There are chronic appearing changes in the kidneys with no acute finding. Chest CT 02/16/19 00:00 IMPRESSION: Decreased attenuation of the bilateral upper lungs possibly related to underlying emphysema. Small right pleural effusion. Mild bibasilar atelectasis. Mild enlargement of the main pulmonary artery, a finding compatible with provided history of pulmonary arterial hypertension. Small pericardial effusion. KUB X-Ray 02/16/19 10:19 IMPRESSION: Appropriate position of nasogastric tube. Chest X-Ray 02/17/19 06:00 IMPRESSION: Increase in bibasilar infiltrate as described. Support lines and tubes remain in satisfactory position. Assessment & Plan - Diagnosis (1) Acute and chronic respiratory failure Qualifiers: Respiratory failure complication: hypoxia and hypercapnia Qualified Code(s): J96.21 - Acute and chronic respiratory failure with hypoxia; J96.22 - Acute and chronic respiratory failure with hypercapnia Is this a current diagnosis for this admission?: Yes Plan: Increasing distress on the floor is the reason for extensive support now. At baseline she is O2 dependant indicating extensive disease. (2) Acute exacerbation of chronic obstructive pulmonary disease (COPD) Is this a current diagnosis for this admission?: Yes Plan: She is on abx, steroids and nebulizers. Will keep her on these until lungs are drying machine back tender to baseline and extubated. (3) Acute hypercapnic respiratory failure Is this a current diagnosis for this admission?: Yes Plan: She seems to have a normalized pCO2 but I suspect she is a bit of a retainer. W ill accept O2 sats 88-94% for extubation. (4) Oxygen dependent Is this a current diagnosis for this admission?: Yes Plan: Hope to get back to baseline but she may need more oxygen when extubated. (5) Severe pulmonary arterial systolic hypertension Is this a current diagnosis for this admission?: Yes Plan: Tends to go up with lowering of sedation as does systemic pressure. Will start sildenifil, wean both vaopressin then milrinone (6) Acute kidney failure Qualifiers: Acute renal failure type: unspecified Qualified Code(s): N17.9 - Acute kidney failure, unspecified Is this a current diagnosis for this admission?: Yes Plan: Patient qualified for [facility] [address] with Cr up to 1.8 from 1.1. Now back down to Cr of 1.2 GFR 54. (7) CKD (chronic kidney disease) stage 2, GFR 60-89 ml/min Is this a current diagnosis for this admission?: Yes Plan: At baseline - Time Time Spent with patient: 35 or more minutes Total Critical Time (Minutes): 45 Medications reviewed and adjusted accordingly: Yes Anticipated discharge: SNF Within: Other Disposition: Several days - Inpatient Certification Medical Necessity: Failure to Improve With Outpatient Therapy, Significant C omorbidiites Make Outpatient Treatment Too Risky, Need Close Monitoring Due to Risk of Patient Decompensation, Need For Continuous Telemetry Monitoring, Need for Nebulizer Therapy and Monitoring of Response, Need for IV Antibiotics, Risk of Complication if Not Cared For in Hospital
[2019-02-17] MEDS: SILDENAFIL CITRATE 20 MG TABLET PO SCH (11:19)
[2019-02-17 11:52] LABS: ARTERIAL BLOOD BASE EXCESS 13.1 mmol/L; ARTERIAL BLOOD H2CO3 2.16 mmol/L (1.05-1.35); ARTERIAL BLOOD HCO3 40.6 mmol/L (20-24); ARTERIAL BLOOD O2 SATURATION 75.4 % (94-98); ARTERIAL BLOOD PO2 43.2 mmHg (80-100); ARTERIAL BLOOD TOTAL CO2 42.8 mmol/L (21-25)
[2019-02-17 11:55] LABS: ARTERIAL BLOOD FIO2 50%
[2019-02-17 11:56] LABS: ARTERIAL BLOOD PCO2 71.6 mmHg (35-45); ARTERIAL BLOOD PH 7.37 (7.35-7.45)
[2019-02-17 12:34] LABS: ARTERIAL BLOOD BASE EXCESS 12.4 mmol/L; ARTERIAL BLOOD HCO3 39.4 mmol/L (20-24); ARTERIAL BLOOD O2 SATURATION 90.5 % (94-98); ARTERIAL BLOOD PCO2 66.3 mmHg (35-45); ARTERIAL BLOOD PH 7.39 (7.35-7.45); ARTERIAL BLOOD PO2 61.5 mmHg (80-100); ARTERIAL BLOOD TOTAL CO2 41.4 mmol/L (21-25)
[2019-02-17 12:35] LABS: ARTERIAL BLOOD FIO2 50%
[2019-02-17 15:36] LABS: HGB A2 1.7 % (1.8-3.2); HGB SOLUBILITY RESULT Negative (Negative)
[2019-02-17] MEDS: FENTANYL CITRATE/PF 600 MCG/60 ML BAG IV PRN (15:43)
[2019-02-17 16:52] LABS: ARTERIAL BLOOD BASE EXCESS 13.6 mmol/L; ARTERIAL BLOOD FIO2 50%; ARTERIAL BLOOD H2CO3 2.16 mmol/L (1.05-1.35); ARTERIAL BLOOD HCO3 41.3 mmol/L (20-24); ARTERIAL BLOOD O2 SATURATION 93.4 % (94-98); ARTERIAL BLOOD PH 7.38 (7.35-7.45); ARTERIAL BLOOD PO2 71.8 mmHg (80-100); ARTERIAL BLOOD TOTAL CO2 43.5 mmol/L (21-25)
[2019-02-17 16:53] LABS: ARTERIAL BLOOD PCO2 71.6 mmHg (35-45)
[2019-02-17] MEDS: DEXMEDETOMIDINE IN NS 400 MCG/100 ML RTUPB IV PRN ×2 (17:20→22:56)
[2019-02-17] MEDS: AMINO AC/PROTEIN HYDR/WHEY PRO 11 GM/45 ML PKT NG SCH (22:29)
[2019-02-17] MEDS: ESCITALOPRAM OXALATE 10 MG TABLET PO SCH (22:29)
[2019-02-17 23:40] LABS: ARTERIAL BLOOD BASE EXCESS 1.5 mmol/L; ARTERIAL BLOOD H2CO3 1.03 mmol/L (1.05-1.35); ARTERIAL BLOOD O2 SATURATION 94.7 % (94-98); ARTERIAL BLOOD PCO2 34.1 mmHg (35-45); ARTERIAL BLOOD PH 7.48 (7.35-7.45); ARTERIAL BLOOD PO2 66.9 mmHg (80-100)
[2019-02-17 23:41] LABS: ARTERIAL BLOOD FIO2 50%
[2019-02-18] MEDS: IPRATROPIUM/ALBUTEROL 0.5-2.5 MG/3 ML AMPUL NEB SCH ×4 (01:53→20:00)
[2019-02-18] MEDS: HALOPERIDOL LACTATE INJ 5 MG/1 ML VIAL IV PRN (02:27)
[2019-02-18] MEDS: DEXMEDETOMIDINE IN NS 400 MCG/100 ML RTUPB IV PRN ×6 (02:48→21:24)
[2019-02-18] MEDS: PROPOFOL 1,000 MG/100 ML INFUS..BTL IV PRN (02:48)
[2019-02-18 04:03] LABS: ARTERIAL BLOOD BASE EXCESS -0.8 mmol/L; ARTERIAL BLOOD H2CO3 0.92 mmol/L (1.05-1.35); ARTERIAL BLOOD HCO3 22.5 mmol/L (20-24); ARTERIAL BLOOD O2 SATURATION 93.4 % (94-98); ARTERIAL BLOOD PCO2 30.5 mmHg (35-45); ARTERIAL BLOOD PH 7.49 (7.35-7.45); ARTERIAL BLOOD PO2 60.9 mmHg (80-100); ARTERIAL BLOOD TOTAL CO2 23.4 mmol/L (21-25)
[2019-02-18 04:06] LABS: ARTERIAL BLOOD FIO2 40%
[2019-02-18] MEDS: HEPARIN SOD (PORCINE) 5,000 UNIT/ML 1 ML VIAL SUBCUT SCH ×3 (05:30→21:12)
[2019-02-18] MEDS: BUDESONIDE NEB 0.5 MG/2 ML AMPUL NEB SCH ×2 (07:46→20:00)
[2019-02-18 08:29] LABS: ARTERIAL BLOOD BASE EXCESS 17.2 mmol/L; ARTERIAL BLOOD H2CO3 1.68 mmol/L (1.05-1.35); ARTERIAL BLOOD HCO3 42.8 mmol/L (20-24); ARTERIAL BLOOD O2 SATURATION 91.2 % (94-98); ARTERIAL BLOOD PCO2 55.8 mmHg (35-45); ARTERIAL BLOOD PO2 56.8 mmHg (80-100); ARTERIAL BLOOD TOTAL CO2 44.5 mmol/L (21-25)
[2019-02-18 08:30] LABS: ARTERIAL BLOOD FIO2 40%
[2019-02-18] MEDS: AZITHROMYCIN 500 MG in DEXTROSE 5%-WATER 250 ML IV SCH (09:45)
[2019-02-18] MEDS: FUROSEMIDE INJ/PF 40 MG/4 ML SDV IV SCH (10:12)
[2019-02-18] MEDS: METHYLPREDNISOLONE INJ 40 MG/1 ML SDV IV SCH ×2 (10:17→21:12)
[2019-02-18] MEDS: AMINO AC/PROTEIN HYDR/WHEY PRO 11 GM/45 ML PKT NG SCH ×4 (10:23→21:12)
[2019-02-18] MEDS: FAMOTIDINE 20 MG TABLET PO SCH ×2 (10:23→21:12)
[2019-02-18] MEDS: CETIRIZINE 10 MG TABLET PO SCH (10:23)
[2019-02-18] MEDS: SPIRONOLACTONE 25 MG TABLET PO SCH (10:23)
[2019-02-18] MEDS: SILDENAFIL CITRATE 20 MG TABLET PO SCH (10:23)
[2019-02-18] MEDS: ALPRAZOLAM 0.5 MG TABLET SL PRN ×2 (10:23→21:12)
--- NOTE | 2019-02-18 11:14 | PDOC PROGRESS REPORT ---
Subjective Progress Note for:: 02/18/19 Subjective:: Sedated but arousable. Sometimes anxious Reason For Visit: RESPIRATORY DISTRESS,COPD ACUTE,EX Physical Exam Vital Signs: Temp Pulse Resp BP Pulse Ox 98.2 F 75 17 180/85 H 93 02/18/19 08:00 02/18/19 10:00 02/18/19 10:40 02/18/19 10:00 02/18/19 10:40 Intake & Output 02/17/19 02/18/19 02/19/19 06:59 06:59 06:59 Intake Total 2813 1438 130 Output Total 1215 4020 1200 Balance 8943 -6974 -5354 Weight 80.9 kg 81.5 kg 81.5 kg General appearance: PRESENT: no acute distress Head exam: PRESENT: atraumatic Additional Comments: HG and ETT present Eye exam: PRESENT: PERRLA Mouth exam: PRESENT: dry mucosa Neck exam: PRESENT: full ROM Respiratory exam: PRESENT: clear to auscultation bianca Cardiovascular exam: PRESENT: RRR Murmur grade: 3 Vascular exam: PRESENT: normal capillary refill GI/Abdominal exam: PRESENT: soft Rectal exam: PRESENT: deferred Gentrourinary exam: PRESENT: indwelling catheter Extremities exam: PRESENT: full ROM Musculoskeletal exam: PRESENT: normal inspection Neurological exam: PRESENT: altered Additional comments: Sedated Psychiatric exam: PRESENT: anxious - Occasionally Skin exam: PRESENT: normal color Results Laboratory Results: 02/17/19 03:46 02/17/19 03:46 02/17/19 02/17/19 02/17/19 11:42 12:20 16:27 Carbonic Acid 2.16 H 2.00 H 2.16 H HCO3/H2CO3 Ratio 18:1 19:1 19:1 ABG pH 7.37 7.39 7.38 ABG pCO2 71.6 H* 66.3 H 71.6 H* ABG pO2 43.2 L 61.5 L 71.8 L ABG HCO3 40.6 H 39.4 H 41.3 H ABG O2 Saturation 75.4 L 90.5 L 93.4 L ABG Base Excess 13.1 12.4 13.6 FiO2 50% 50% 50% Lactic Acid 02/17/19 02/17/19 02/18/19 16:27 23:31 03:47 Carbonic Acid 1.03 L 0.92 L HCO3/H2CO3 Ratio 24:1 24:1 ABG pH 7.48 H 7.49 H ABG pCO2 34.1 L 30.5 L ABG pO2 66.9 L 60.9 L ABG HCO3 25.0 H 22.5 ABG O2 Saturation 94.7 93.4 L ABG Base Excess 1.5 -0.8 FiO2 50% 40% Lactic Acid 2.8 H 02/18/19 08:13 Carbonic Acid 1.68 H HCO3/H2CO3 Ratio 25:1 ABG pH 7.50 H ABG pCO2 55.8 H ABG pO2 56.8 L ABG HCO3 42.8 H ABG O2 Saturation 91.2 L ABG Base Excess 17.2 FiO2 40% Lactic Acid 02/16/19 08:40 Delgado Catheter Urine Culture - Final NO GROWTH 2 DAYS 02/16/19 18:30 Bronchial Washings Gram Stain - Final 02/16/19 18:30 Bronchial Washings Bronchial Washings Culture - Final NO GROWTH 2 DAYS 02/16/19 18:30 Bronchial Washings Gram Stain - Final 02/16/19 18:30 Bronchial Washings Bronchial Washings Culture - Final NO GROWTH 2 DAYS 02/16/19 11:36 Tracheal Aspirate Gram Stain - Final 02/16/19 11:36 Tracheal Aspirate Sputum Culture - Final REDUCED NORMAL VALENTIN 02/12/19 22:17 Blood Blood Culture - Final NO GROWTH IN 5 DAYS 02/12/19 02/12/19 02/12/19 18:46 18:46 18:46 Creatine Kinase 64 CK-MB (CK-2) 2.93 Troponin I < 0.012 NT-Pro-B Natriuret Pep [id number] H 02/13/19 02/13/19 04:11 04:11 Creatine Kinase 50 CK-MB (CK-2) 3.58 Troponin I < 0.012 NT-Pro-B Natriuret Pep [id number] H Impressions: Chest Ultrasound 02/12/19 17:35 IMPRESSION: No pleural effusions. Renal Ultrasound 02/13/19 00:00 IMPRESSION: There are chronic appearing changes in the kidneys with no acute finding. Chest CT 02/16/19 00:00 IMPRESSION: Decreased attenuation of the bilateral upper lungs possibly related to underlying emphysema. Small right pleural effusion. Mild bibasilar atelectasis. Mild enlargement of the main pulmonary artery, a finding compatible with provided history of pulmonary arterial hypertension. Small pericardial effusion. KUB X-Ray 02/16/19 10:19 IMPRESSION: Appropriate position of nasogastric tube. Chest X-Ray 02/17/19 06:00 IMPRESSION: Increase in bibasilar infiltrate as described. Support lines and tubes remain in satisfactory position. Assessment & Plan - Diagnosis (1) Acute and chronic respiratory failure Qualifiers: Respiratory failure complication: hypoxia and hypercapnia Qualified Code(s): J96.21 - Acute and chronic respiratory failure with hypoxia; J96.22 - Acute and chronic respiratory failure with hypercapnia Is this a current diagnosis for this admission?: Yes Plan: Patient is relatively hypocapnic. Neverthrless is tolerateing CPAP. Hope to extubate in a day or so. (2) Acute exacerbation of chronic obstructive pulmonary disease (COPD) Is this a current diagnosis for this admission?: Yes Plan: Continue nebulizers and steroids. (3) Acute hypercapnic respiratory failure Is this a current diagnosis for this admission?: Yes Plan: Compensated pH but pCO2 still high (4) Oxygen dependent Is this a current diagnosis for this admission?: Yes Plan: Hope to keep O2 sats about 90% at extubation (5) Severe pulmonary arterial systolic hypertension Is this a current diagnosis for this admission?: Yes Plan: Off Milrinone and vasopressin ad PA pressures unchanged. (6) Acute kidney failure Qualifiers: Acute renal failure type: unspecified Qualified Code(s): N17.9 - Acute kidney failure, unspecified Is this a current diagnosis for this admission?: Yes Plan: Resolved (7) CKD (chronic kidney disease) stage 2, GFR 60-89 ml/min Is this a current diagnosis for this admission?: Yes Plan: At baseline - Time Time Spent with patient: 35 or more minutes Total Critical Time (Minutes): 35 Medications reviewed and adjusted accordingly: Yes Anticipated discharge: Home Within: within 72 hours - Inpatient Certification Medical Necessity: Failure to Improve With Outpatient Therapy, Significant Comorbidiites Make Outpatient Treatment Too Risky, Need Close Monitoring Due to Risk of Patient Decompensation, Need for Nebulizer Therapy and Monitoring of Response
[2019-02-18 11:37] LABS: DILUTE RUSSELL VIPOR VENOM 30.8 sec (0.0-47.0); PTT-LA 28.6 sec (0.0-51.9); THROMBIN TIME 21.8 sec (0.0-23.0)
[2019-02-18 11:48] LABS: ARTERIAL BLOOD BASE EXCESS 12.7 mmol/L; ARTERIAL BLOOD H2CO3 1.54 mmol/L (1.05-1.35); ARTERIAL BLOOD HCO3 37.9 mmol/L (20-24); ARTERIAL BLOOD PCO2 51.3 mmHg (35-45); ARTERIAL BLOOD PH 7.49 (7.35-7.45); ARTERIAL BLOOD PO2 56.6 mmHg (80-100); ARTERIAL BLOOD TOTAL CO2 39.4 mmol/L (21-25)
[2019-02-18 11:48] LABS: LUPUS PANEL INTERPRETATION Comment: (.)
[2019-02-18 11:55] LABS: ARTERIAL BLOOD FIO2 40%
[2019-02-18 13:37] LABS: ANTINUCLEAR ANTIBODIES Positive (Negative); SJOGREN'S ANTI-SS-B AB <0.2 AI (0.0-0.9); SJOGREN'S SS-A ANTIBODY <0.2 AI (0.0-0.9); SMITH AB ANA <0.2 AI (0.0-0.9)
[2019-02-18 13:40] LABS: DNA DOUBLE STRAND ANTIBODY ANA <1 IU/mL (0-9)
[2019-02-18 15:57] LABS: ARTERIAL BLOOD H2CO3 1.66 mmol/L (1.05-1.35); ARTERIAL BLOOD HCO3 44.5 mmol/L (20-24); ARTERIAL BLOOD O2 SATURATION 90.4 % (94-98); ARTERIAL BLOOD PCO2 55.2 mmHg (35-45); ARTERIAL BLOOD PH 7.52 (7.35-7.45); ARTERIAL BLOOD PO2 53.9 mmHg (80-100); ARTERIAL BLOOD TOTAL CO2 46.2 mmol/L (21-25)
[2019-02-18 15:58] LABS: ARTERIAL BLOOD FIO2 40%
[2019-02-18 16:36] LABS: ANTIMYELOPEROXIDASE (MPO) AB <9.0 U/mL (0.0-9.0); CYTOPLASMIC (C-ANCA) <1:20 titer (Neg:<1:20)
[2019-02-18] MEDS: FENTANYL CITRATE INJ/PF 100 MCG/2 ML AMPUL IV PRN ×2 (17:13→22:51)
[2019-02-18 18:44] LABS: ATYPICAL PANCA <1:20 titer (Neg:<1:20)
[2019-02-18] MEDS: ESCITALOPRAM OXALATE 10 MG TABLET PO SCH (21:12)
--- NOTE | 2019-02-18 21:59 | PDOC PROGRESS REPORT ---
Subjective Progress Note for:: 02/17/19 Subjective:: Patient was admitted with shortness of breath. She was noted to have severe CO2 retention and was subsequently transferred to the unit. Patient was noted to have acute on chronic respiratory failure. Patient on questioning denied any chest pain.Events of the weekends were reviewed. Patient ended up needing a [place] PA catheter, milrinone and vasopressin infusion. She also got intubated for respiratory failure. Patient was noted to have relatively stable vital signs. Lab work were reviewed. CT scan performed reviewed. Chest x-ray reviewed. Reason For Visit: RESPIRATORY DISTRESS,COPD ACUTE,EX Physical Exam Vital Signs: Temp Pulse Resp BP Pulse Ox 98.4 F 105 H 14 119/56 L 94 02/16/19 17:56 02/17/19 21:00 02/17/19 23:10 02/17/19 21:00 02/17/19 23:10 Intake & Output 02/16/19 02/17/19 02/18/19 06:59 06:59 06:59 Intake Total 540 2813 1054 Output Total 1500 1215 2900 Balance -960 1598 -1846 Weight 78.9 kg 80.9 kg 80.9 kg Exam: GEN: Patient intubated but seems comfortable. HEENT : Eyes: MICHELLE, Ears: No significant abnormalities, Nose: No significant abnormalities. normocephalic atraumatic. Flat midface (-), Receding chin (-) ORAL : Mallampati class IV, narrow arched palate (-) Tonsils: Not enlarged. NECK: no thyromegaly, no masses, trachea is central, JVD is borderline elevated, carotids 2+ with bruit (-) RESP: lungs with bilateral rales, wheezes or rhonchi, nonlabored, accessory muscles of respiration use (-). CV: NL S1 and S2. No significant murmurs noted, no gallop, no extra sounds, no clicks, no rub noted. GI: abd NT to palpation, no masses, bowel sounds present, no guarding or rigidity noted. EXT: no clubbing, (-) cyanosis, edema (1+), perpheral pulses diminished (no) MUSC/SKEL: no acute joint swelling noted. Muscle strength is generally intact. NEURO: no significant focal neurological deficits are note, sensation grossly intact, AO x 3 PSYCH: NL mood and affect. judgment and insight noted to be intact. SKIN: (-) rash, (-)Signs of pruritus, (-) other significant abnormality Results Laboratory Results: 02/17/19 03:46 02/17/19 03:46 02/16/19 02/17/19 02/17/19 23:30 03:46 03:46 WBC RBC Hgb Hct MCV MCH MCHC RDW Plt Count Seg Neutrophils % Carbonic Acid 2.08 H 1.82 H HCO3/H2CO3 Ratio 18:1 17:1 ABG pH 7.36 7.35 ABG pCO2 69.1 H* 60.4 H ABG pO2 42.3 L 73.4 L ABG HCO3 38.2 H 32.6 H ABG O2 Saturation 74.0 L 93.7 L ABG Base Excess 10.7 5.7 FiO2 50% 50% Sodium Potassium Chloride Carbon Dioxide Anion Gap BUN Creatinine Est GFR ( Amer) Glucose Lactic Acid Calcium Phosphorus Magnesium Total Bilirubin AST Alkaline Phosphatase Ammonia < 8.7 L Total Protein Albumin 02/17/19 02/17/19 02/17/19 03:46 03:46 03:46 WBC 9.1 RBC 2.85 L Hgb 9.3 L Hct 28.7 L MCV 101 H MCH 32.5 MCHC 32.3 RDW 17.1 H Plt Count 205 Seg Neutrophils % Not Reportable Carbonic Acid HCO3/H2CO3 Ratio ABG pH ABG pCO2 ABG pO2 ABG HCO3 ABG O2 Saturation ABG Base Excess FiO2 Sodium 136.4 L Potassium 4.6 Chloride 92 L Carbon Dioxide 36 H Anion Gap 8 BUN 19 Creatinine 1.22 Est GFR ( Amer) 54 L Glucose 181 H Lactic Acid 5.1 H Calcium 8.9 Phosphorus 2.9 Magnesium 2.2 Total Bilirubin 0.4 AST 19 Alkaline Phosphatase 41 Ammonia Total Protein 5.3 L Albumin 2.9 L 02/17/19 02/17/19 02/17/19 03:52 08:10 11:42 WBC RBC Hgb Hct MCV MCH MCHC RDW Plt Count Seg Neutrophils % Carbonic Acid 2.19 H 2.04 H 2.16 H HCO3/H2CO3 Ratio 16:1 18:1 18:1 ABG pH 7.31 L 7.37 7.37 ABG pCO2 72.7 H* 67.7 H 71.6 H* ABG pO2 45.9 L 40.4 L* 43.2 L ABG HCO3 35.6 H 37.9 H 40.6 H ABG O2 Saturation 76.0 L 71.7 L 75.4 L ABG Base Excess 6.4 10.5 13.1 FiO2 50 50% 50% Sodium Potassium Chloride Carbon Dioxide Anion Gap BUN Creatinine Est GFR ( Amer) Glucose Lactic Acid Calcium Phosphorus Magnesium Total Bilirubin AST Alkaline Phosphatase Ammonia Total Protein Albumin 02/17/19 02/17/19 02/17/19 12:20 16:27 16:27 WBC RBC Hgb Hct MCV MCH MCHC RDW Plt Count Seg Neutrophils % Carbonic Acid 2.00 H 2.16 H HCO3/H2CO3 Ratio 19:1 19:1 ABG pH 7.39 7.38 ABG pCO2 66.3 H 71.6 H* ABG pO2 61.5 L 71.8 L ABG HCO3 39.4 H 41.3 H ABG O2 Saturation 90.5 L 93.4 L ABG Base Excess 12.4 13.6 FiO2 50% 50% Sodium Potassium Chloride Carbon Dioxide Anion Gap BUN Creatinine Est GFR ( Amer) Glucose Lactic Acid 2.8 H Calcium Phosphorus Magnesium Total Bilirubin AST Alkaline Phosphatase Ammonia Total Protein Albumin 02/12/19 22:17 Blood Blood Culture - Final NO GROWTH IN 5 DAYS 02/12/19 02/12/19 02/12/19 18:46 18:46 18:46 Creatine Kinase 64 CK-MB (CK-2) 2.93 Troponin I < 0.012 NT-Pro-B Natriuret Pep [id number] H 02/13/19 02/13/19 04:11 04:11 Creatine Kinase 50 CK-MB (CK-2) 3.58 Troponin I < 0.012 NT-Pro-B Natriuret Pep [id number] H EKG Comments: Telemetry shows sinus rhythm. No sustained tachycardia or bradycardia noted. Impressions: Chest Ultrasound 02/12/19 17:35 IMPRESSION: No pleural effusions. Renal Ultrasound 02/13/19 00:00 IMPRESSION: There are chronic appearing changes in the kidneys with no acute finding. Chest CT 02/16/19 00:00 IMPRESSION: Decreased attenuation of the bilateral upper lungs possibly related to underlying emphysema. Small right pleural effusion. Mild bibasilar atelectasis. Mild enlargement of the main pulmonary artery, a finding compatible with provided history of pulmonary arterial hypertension. Small pericardial effusion. KUB X-Ray 02/16/19 10:19 IMPRESSION: Appropriate position of nasogastric tube. Chest X-Ray 02/17/19 06:00 IMPRESSION: Increase in bibasilar infiltrate as described. Support lines and tubes remain in satisfactory position. Assessment & Plan - Diagnosis (1) Acute and chronic respiratory failure Qualifiers: Respiratory failure complication: hypoxia and hypercapnia Qualified Code(s): J96.21 - Acute and chronic respiratory failure with hypoxia; J96.22 - Acute and chronic respiratory failure with hypercapnia Is this a current diagnosis for this admission?: Yes (2) Acute exacerbation of chronic obstructive pulmonary disease (COPD) Is this a current diagnosis for this admission?: Yes (3) COPD exacerbation Is this a current diagnosis for this admission?: Yes (4) CHF (congestive heart failure) Qualifiers: Heart failure type: right-sided Heart failure chronicity: acute on chronic Qualified Code(s): I50.813 - Acute on chronic right heart failure Is this a current diagnosis for this admission?: Yes - Notes Notes: Patient remains critically ill. Currently on vasopressin and milrinone trip. Also intubated. Maintaining oxygenation. Continue with supportive care. Overall prognosis remains guarded notice significant comorbid problems. Will continue to follow. - Time Time with patient: Greater than 35 minutes Medications reviewed and adjusted accordingly: Yes
[2019-02-19] MEDS: DEXMEDETOMIDINE IN NS 400 MCG/100 ML RTUPB IV PRN ×4 (01:55→12:42)
[2019-02-19] MEDS: IPRATROPIUM/ALBUTEROL 0.5-2.5 MG/3 ML AMPUL NEB SCH ×4 (02:14→20:46)
[2019-02-19 05:44] LABS: HEMATOCRIT 32.9 % (36.0-47.0); HEMOGLOBIN 10.6 g/dL (12.0-15.5); MEAN CORPUSCULAR HEMOGLOBIN 31.4 pg (27.0-33.4); MEAN CORPUSCULAR HGB CONC 32.2 g/dL (32.0-36.0); MEAN CORPUSCULAR VOLUME 98 fl (80-97); PLATELET COUNT 184 10^3/uL (150-450); RED BLOOD COUNT 3.38 10^6/uL (3.72-5.28); WHITE BLOOD COUNT 12.9 10^3/uL (4.0-10.5)
[2019-02-19 05:46] LABS: ARTERIAL BLOOD H2CO3 1.02 mmol/L (1.05-1.35); ARTERIAL BLOOD HCO3 25.2 mmol/L (20-24); ARTERIAL BLOOD O2 SATURATION 94.1 % (94-98); ARTERIAL BLOOD PCO2 33.8 mmHg (35-45); ARTERIAL BLOOD PH 7.49 (7.35-7.45); ARTERIAL BLOOD PO2 63.9 mmHg (80-100); ARTERIAL BLOOD TOTAL CO2 26.3 mmol/L (21-25)
[2019-02-19 05:51] LABS: ARTERIAL BLOOD FIO2 40%
[2019-02-19 05:58] LABS: BLOOD UREA NITROGEN 37 mg/dL (7-20); CALCIUM 9.3 mg/dL (8.4-10.2); CHLORIDE 92 mmol/L (98-107); GLUCOSE 110 mg/dL (75-110); POTASSIUM 4.5 mmol/L (3.6-5.0); TRIGLYCERIDES 77 mg/dL (<150)
[2019-02-19 06:00] LABS: ABSOLUTE LYMPHOCYTES# (MANUAL) 0.9 10^3/uL (0.5-4.7); ABSOLUTE MONOCYTES # (MANUAL) 1.2 10^3/uL (0.1-1.4); ANISOCYTOSIS 1+; BAND NEUTROPHILS % (MANUAL) 3 % (3-5); BASOPHILS % (MANUAL) 0 % (0-2); EOSINOPHILS % (MANUAL) 0 % (0-6); LYMPHOCYTES % (MANUAL) 7 % (13-45); MONOCYTES % (MANUAL) 9 % (3-13); PLATELET COMMENT ADEQUATE; POLYCHROMASIA SLIGHT; SEGMENTED NEUTROPHILS % (MAN) 81 % (42-78); TOTAL CELLS COUNTED 100
[2019-02-19 06:02] LABS: ANION GAP 5 (5-19)
[2019-02-19 06:09] LABS: CARBON DIOXIDE 40 mmol/L (22-30)
[2019-02-19] MEDS: HEPARIN SOD (PORCINE) 5,000 UNIT/ML 1 ML VIAL SUBCUT SCH ×3 (06:18→21:20)
[2019-02-19] MEDS: BUDESONIDE NEB 0.5 MG/2 ML AMPUL NEB SCH ×2 (07:37→20:46)
[2019-02-19] MEDS: SPIRONOLACTONE 25 MG TABLET PO SCH (10:04)
[2019-02-19] MEDS: SILDENAFIL CITRATE 20 MG TABLET PO SCH (10:04)
[2019-02-19] MEDS: CETIRIZINE 10 MG TABLET PO SCH (10:04)
[2019-02-19] MEDS: FAMOTIDINE 20 MG TABLET PO SCH ×2 (10:04→21:19)
[2019-02-19] MEDS: FUROSEMIDE INJ/PF 40 MG/4 ML SDV IV SCH (10:05)
[2019-02-19] MEDS: AZITHROMYCIN 500 MG in DEXTROSE 5%-WATER 250 ML IV SCH (10:05)
[2019-02-19] MEDS: METHYLPREDNISOLONE INJ 40 MG/1 ML SDV IV SCH ×2 (10:05→21:20)
[2019-02-19] MEDS: AMINO AC/PROTEIN HYDR/WHEY PRO 11 GM/45 ML PKT NG SCH ×4 (11:22→22:00)
--- NOTE | 2019-02-19 14:18 | PDOC PROGRESS REPORT ---
Subjective Progress Note for:: 02/19/19 Subjective:: Pt is somewhat delerious because of intubation and sedation. Reason For Visit: RESPIRATORY DISTRESS,COPD ACUTE,EX Physical Exam Vital Signs: Temp Pulse Resp BP Pulse Ox 99.7 F 89 19 96/45 L 92 02/18/19 16:00 02/19/19 10:00 02/19/19 10:35 02/19/19 10:00 02/19/19 10:35 Intake & Output 02/18/19 02/19/19 02/20/19 06:59 06:59 06:59 Intake Total 1438 1285 100 Output Total 4020 5100 1700 Balance -0916 -1443 -6211 Weight 81.5 kg 79.6 kg Physical Exam: Drowsy General appearance: PRESENT: no acute distress, cooperative Additional Comments: Extubated this AM Eye exam: PRESENT: PERRLA Ear exam: PRESENT: normal external ear exam Mouth exam: PRESENT: moist Neck exam: PRESENT: full ROM Respiratory exam: PRESENT: clear to auscultation bianca, decreased breath sounds, unlabored Cardiovascular exam: PRESENT: RRR Murmur grade: 3 Vascular exam: PRESENT: normal capillary refill GI/Abdominal exam: PRESENT: soft Rectal exam: PRESENT: deferred Gentrourinary exam: PRESENT: indwelling catheter Extremities exam: PRESENT: full ROM Musculoskeletal exam: PRESENT: full ROM Neurological exam: PRESENT: alert, altered, awake Skin exam: PRESENT: normal color Results Laboratory Results: 02/19/19 05:28 02/19/19 05:28 02/18/19 02/19/19 02/19/19 15:40 05:28 05:28 WBC RBC Hgb Hct MCV MCH MCHC RDW Plt Count Seg Neutrophils % Carbonic Acid 1.66 H 1.02 L HCO3/H2CO3 Ratio 26:1 24:1 ABG pH 7.52 H 7.49 H ABG pCO2 55.2 H 33.8 L ABG pO2 53.9 L 63.9 L ABG HCO3 44.5 H 25.2 H ABG O2 Saturation 90.4 L 94.1 ABG Base Excess 19.0 2.0 FiO2 40% 40% Sodium 136.9 L Potassium 4.5 Chloride 92 L Carbon Dioxide 40 H* Anion Gap 5 BUN 37 H Creatinine 1.65 H Est GFR ( Amer) 38 L Glucose 110 Calcium 9.3 Triglycerides 77 02/19/19 05:28 WBC 12.9 H RBC 3.38 L Hgb 10.6 L Hct 32.9 L MCV 98 H MCH 31.4 MCHC 32.2 RDW 17.0 H Plt Count 184 Seg Neutrophils % Not Reportable Carbonic Acid HCO3/H2CO3 Ratio ABG pH ABG pCO2 ABG pO2 ABG HCO3 ABG O2 Saturation ABG Base Excess FiO2 Sodium Potassium Chloride Carbon Dioxide Anion Gap BUN Creatinine Est GFR ( Amer) Glucose Calcium Triglycerides 02/16/19 18:30 Bronchial Washings AFB Smear Concentration - Final 02/16/19 18:30 Bronchial Washings Acid Fast Bacilli Smear - Final 02/16/19 18:30 Bronchial Washings AFB Smear Concentration - Final 02/16/19 18:30 Bronchial Washings Acid Fast Bacilli Smear - Final 02/13/19 13:17 Blood Blood Culture - Final NO GROWTH IN 5 DAYS 02/16/19 08:40 Delgado Catheter Urine Culture - Final NO GROWTH 2 DAYS 02/16/19 18:30 Bronchial Washings Gram Stain - Final 02/16/19 18:30 Bronchial Washings Bronchial Washings Culture - Final NO GROWTH 2 DAYS 02/12/19 02/12/19 02/12/19 18:46 18:46 18:46 Creatine Kinase 64 CK-MB (CK-2) 2.93 Troponin I < 0.012 NT-Pro-B Natriuret Pep 87114 H 02/13/19 02/13/19 04:11 04:11 Creatine Kinase 50 CK-MB (CK-2) 3.58 Troponin I < 0.012 NT-Pro-B Natriuret Pep 93425 H Impressions: Chest Ultrasound 02/12/19 17:35 IMPRESSION: No pleural effusions. Renal Ultrasound 02/13/19 00:00 IMPRESSION: There are chronic appearing changes in the kidneys with no acute finding. Chest CT 02/16/19 00:00 IMPRESSION: Decreased attenuation of the bilateral upper lungs possibly related to underlying emphysema. Small right pleural effusion. Mild bibasilar atelectasis. Mild enlargement of the main pulmonary artery, a finding compatible with provided history of pulmonary arterial hypertension. Small pericardial effusion. KUB X-Ray 02/16/19 10:19 IMPRESSION: Appropriate position of nasogastric tube. Chest X-Ray 02/17/19 06:00 IMPRESSION: Increase in bibasilar infiltrate as described. Support lines and tubes remain in satisfactory position. Assessment & Plan - Diagnosis (1) Acute and chronic respiratory failure Qualifiers: Respiratory failure complication: hypoxia and hypercapnia Qualified Code(s): J96.21 - Acute and chronic respiratory failure with hypoxia; J96.22 - Acute and chronic respiratory failure with hypercapnia Is this a current diagnosis for this admission?: Yes Plan: The acute phase is resolved for now with extubation. We hope she will stay extubated. Chronically, she has copd and pulm HTN. (2) Acute exacerbation of chronic obstructive pulmonary disease (COPD) Is this a current diagnosis for this admission?: Yes Plan: Acutely this has resolved (3) Acute hypercapnic respiratory failure Is this a current diagnosis for this admission?: Yes Plan: Resolved for now (4) Oxygen dependent Is this a current diagnosis for this admission?: Yes Plan: She was extubated to bipap. Is doing and will wean as tolerated. (5) Severe pulmonary arterial systolic hypertension Is this a current diagnosis for this admission?: Yes Plan: She is relatively dehydrated to keep lungs dry. She may need more fluid in time. (6) Acute kidney failure Qualifiers: Acute renal failure type: unspecified Qualified Code(s): N17.9 - Acute kidney failure, unspecified Is this a current diagnosis for this admission?: Yes Plan: Resolved (7) CKD (chronic kidney disease) stage 2, GFR 60-89 ml/min Is this a current diagnosis for this admission?: Yes Plan: Slightly higher than baseline. - Time Time Spent with patient: 35 or more minutes Total Critical Time (Minutes): 45 Medications reviewed and adjusted accordingly: Yes Anticipated discharge: Home with Homehealth Within: within 72 hours - Inpatient Certification Medical Necessity: Failure to Improve With Outpatient Therapy, Significant Comorbidiites Make Outpatient Treatment Too Risky, Need Close Monitoring Due to Risk of Patient Decompensation, Need for Nebulizer Therapy and Monitoring of Re sponse
[2019-02-19] MEDS: ALPRAZOLAM 0.5 MG TABLET SL PRN (16:57)
[2019-02-19] MEDS: ESCITALOPRAM OXALATE 10 MG TABLET PO SCH (21:19)
--- NOTE | 2019-02-19 22:55 | EKG REPORT ---
SEVERITY:- ABNORMAL ECG - SINUS RHYTHM NONSPECIFIC T ABNORMALITIES, INFERIOR LEADS : Confirmed by: Julieta Baker 19-Feb-2019 22:55:16
[2019-02-20] MEDS: ALPRAZOLAM 0.5 MG TABLET SL PRN ×2 (01:04→13:25)
[2019-02-20] MEDS: IPRATROPIUM/ALBUTEROL 0.5-2.5 MG/3 ML AMPUL NEB SCH ×4 (02:31→20:23)
[2019-02-20 05:05] LABS: ARTERIAL BLOOD FIO2 21%; ARTERIAL BLOOD H2CO3 1.88 mmol/L (1.05-1.35); ARTERIAL BLOOD HCO3 35.1 mmol/L (20-24); ARTERIAL BLOOD O2 SATURATION 98.5 % (94-98); ARTERIAL BLOOD PCO2 62.3 mmHg (35-45); ARTERIAL BLOOD PH 7.37 (7.35-7.45); ARTERIAL BLOOD PO2 131.2 mmHg (80-100)
[2019-02-20 05:12] LABS: HEMATOCRIT 32.8 % (36.0-47.0); HEMOGLOBIN 10.5 g/dL (12.0-15.5); MEAN CORPUSCULAR HEMOGLOBIN 31.5 pg (27.0-33.4); MEAN CORPUSCULAR VOLUME 99 fl (80-97); PLATELET COUNT 166 10^3/uL (150-450); RED BLOOD COUNT 3.33 10^6/uL (3.72-5.28); RED CELL DISTRIBUTION WIDTH 16.5 % (11.5-14.0); WHITE BLOOD COUNT 15.8 10^3/uL (4.0-10.5)
[2019-02-20 05:31] LABS: BLOOD UREA NITROGEN 35 mg/dL (7-20); CALCIUM 9.4 mg/dL (8.4-10.2); CHLORIDE 93 mmol/L (98-107); GLUCOSE 76 mg/dL (75-110); POTASSIUM 4.5 mmol/L (3.6-5.0)
[2019-02-20 05:32] LABS: ABSOLUTE LYMPHOCYTES# (MANUAL) 0.6 10^3/uL (0.5-4.7); ABSOLUTE MONOCYTES # (MANUAL) 1.3 10^3/uL (0.1-1.4); BASOPHILS % (MANUAL) 0 % (0-2); EOSINOPHILS % (MANUAL) 0 % (0-6); LYMPHOCYTES % (MANUAL) 3 % (13-45); MONOCYTES % (MANUAL) 8 % (3-13); SEGMENTED NEUTROPHILS % (MAN) 88 % (42-78); TOTAL CELLS COUNTED 100
[2019-02-20 05:33] LABS: ANISOCYTOSIS 1+; HYPOCHROMASIA 1+; PLATELET COMMENT ADEQUATE
[2019-02-20] MEDS: HEPARIN SOD (PORCINE) 5,000 UNIT/ML 1 ML VIAL SUBCUT SCH ×3 (05:33→21:25)
[2019-02-20 05:42] LABS: ANION GAP 7 (5-19); CARBON DIOXIDE 37 mmol/L (22-30)
[2019-02-20] MEDS ORDERED: ALPRAZOLAM 0.5 MG TABLET PO ONE (06:00)
--- NOTE | 2019-02-20 08:14 | PDOC PROGRESS REPORT ---
Subjective Progress Note for:: 02/20/19 Subjective:: Feels weak. Better oriented. Reason For Visit: RESPIRATORY DISTRESS,COPD ACUTE,EX Physical Exam Vital Signs: Temp Pulse Resp BP Pulse Ox 99.7 F 102 H 19 122/56 L 96 02/18/19 16:00 02/20/19 02:36 02/20/19 06:15 02/19/19 20:50 02/20/19 06:15 Intake & Output 02/19/19 02/20/19 02/21/19 06:59 06:59 06:59 Intake Total 1285 496 Output Total 5100 8720 Balance -5638 -6095 Weight 79.6 kg 75 kg General appearance: PRESENT: no acute distress, cooperative, thin Eye exam: PRESENT: EOMI, PERRLA Ear exam: PRESENT: normal external ear exam Mouth exam: PRESENT: dry mucosa Respiratory exam: PRESENT: clear to auscultation bianca, decreased breath sounds Cardiovascular exam: PRESENT: tachycardia Murmur grade: 3 Vascular exam: PRESENT: normal capillary refill GI/Abdominal exam: PRESENT: soft Rectal exam: PRESENT: deferred Extremities exam: PRESENT: full ROM, pedal edema Additional comments: Weak Musculoskeletal exam: PRESENT: full ROM, normal inspection Neurological exam: PRESENT: alert, altered, oriented to person, oriented to place Psychiatric exam: PRESENT: anxious Skin exam: PRESENT: dry Results Laboratory Results: 02/20/19 04:49 02/20/19 04:49 02/20/19 02/20/19 02/20/19 04:49 04:49 04:49 WBC 15.8 H RBC 3.33 L Hgb 10.5 L Hct 32.8 L MCV 99 H MCH 31.5 MCHC 32.0 RDW 16.5 H Plt Count 166 Seg Neutrophils % Not Reportable Carbonic Acid 1.88 H HCO3/H2CO3 Ratio 18:1 ABG pH 7.37 ABG pCO2 62.3 H ABG pO2 131.2 H ABG HCO3 35.1 H ABG O2 Saturation 98.5 H ABG Base Excess 8.0 FiO2 21% Sodium 136.8 L Potassium 4.5 Chloride 93 L Carbon Dioxide 37 H Anion Gap 7 BUN 35 H Creatinine 1.48 H Est GFR ( Amer) 43 L Glucose 76 Calcium 9.4 02/16/19 18:30 Bronchial Washings Fungal Smear - Final 02/16/19 18:30 Bronchial Washings Fungal Smear - Final 02/16/19 18:30 Bronchial Washings Fungal Smear - Final 02/16/19 18:30 Bronchial Washings Fungal Smear - Final 02/16/19 18:30 Bronchial Washings AFB Smear Concentration - Final 02/16/19 18:30 Bronchial Washings Acid Fast Bacilli Smear - Final 02/16/19 18:30 Bronchial Washings AFB Smear Concentration - Final 02/16/19 18:30 Bronchial Washings Acid Fast Bacilli Smear - Final 02/12/19 02/12/19 02/12/19 18:46 18:46 18:46 Creatine Kinase 64 CK-MB (CK-2) 2.93 Troponin I < 0.012 NT-Pro-B Natriuret Pep 29693 H 02/13/19 02/13/19 04:11 04:11 Creatine Kinase 50 CK-MB (CK-2) 3.58 Troponin I < 0.012 NT-Pro-B Natriuret Pep 52651 H Impressions: Chest Ultrasound 02/12/19 17:35 IMPRESSION: No pleural effusions. Renal Ultrasound 02/13/19 00:00 IMPRESSION: There are chronic appearing changes in the kidneys with no acute finding. Chest CT 02/16/19 00:00 IMPRESSION: Decreased attenuation of the bilateral upper lungs possibly related to underlying emphysema. Small right pleural effusion. Mild bibasilar atelectasis. Mild enlargement of the main pulmonary artery, a finding compatible with provid ed history of pulmonary arterial hypertension. Small pericardial effusion. KUB X-Ray 02/16/19 10:19 IMPRESSION: Appropriate position of nasogastric tube. Chest X-Ray 02/17/19 06:00 IMPRESSION: Increase in bibasilar infiltrate as described. Support lines and tubes remain in satisfactory position. Assessment & Plan - Diagnosis (1) Acute and chronic respiratory failure Qualifiers: Respiratory failure complication: hypoxia and hypercapnia Qualified Code(s): J96.21 - Acute and chronic respiratory failure with hypoxia; J96.22 - Acute and chronic respiratory failure with hypercapnia Is this a current diagnosis for this admission?: Yes Plan: Acutely she has stayed extubated. She occasionally has panic attacks and her BP and probably her PA pressurs rise. Already on ativan PO 0.5 mg. Will add seraquel. (2) Acute exacerbation of chronic obstructive pulmonary disease (COPD) Is this a current diagnosis for this admission?: Yes Plan: Resolved (3) Acute hypercapnic respiratory failure Is this a current diagnosis for this admission?: Yes Plan: Compensated (4) Oxygen dependent Is this a current diagnosis for this admission?: Yes Plan: She is still requiring bipap. Will try her off bipap again today. Would like to get back to nasal cannulla. (5) Severe pulmonary arterial systolic hypertension Is this a current diagnosis for this admission?: Yes Plan: At baseline. With panic attacks it tends to rise. (6) Acute kidney failure Qualifiers: Acute renal failure type: unspecified Qualified Code(s): N17.9 - Acute kid bill failure, unspecified Is this a current diagnosis for this admission?: Yes Plan: Resolved at baseline (7) CKD (chronic kidney disease) stage 2, GFR 60-89 ml/min Is this a current diagnosis for this admission?: Yes Plan: GFR 49 (8) Physical deconditioning Is this a current diagnosis for this admission?: Yes Plan: PT ordered, expect rehab. - Time Time Spent with patient: 35 or more minutes Total Critical Time (Minutes): 35 Medications reviewed and adjusted accordingly: Yes Anticipated discharge: SNF Within: Other - Inpatient Certification Medical Necessity: Significant Comorbidiites Make Outpatient Treatment Too Risky , Need Close Monitoring Due to Risk of Patient Decompensation, Need For Continuous Telemetry Monitoring
[2019-02-20] MEDS: BUDESONIDE NEB 0.5 MG/2 ML AMPUL NEB SCH ×2 (08:29→20:23)
[2019-02-20] MEDS: SPIRONOLACTONE 25 MG TABLET PO SCH (09:58)
[2019-02-20] MEDS: CETIRIZINE 10 MG TABLET PO SCH (09:58)
[2019-02-20] MEDS: FAMOTIDINE 20 MG TABLET PO SCH ×2 (09:58→21:25)
[2019-02-20] MEDS: AMINO AC/PROTEIN HYDR/WHEY PRO 11 GM/45 ML PKT NG SCH (09:59)
[2019-02-20] MEDS: METHYLPREDNISOLONE INJ 40 MG/1 ML SDV IV SCH (09:59)
[2019-02-20] MEDS: SILDENAFIL CITRATE 20 MG TABLET PO SCH (10:40)
[2019-02-20] MEDS: ESCITALOPRAM OXALATE 10 MG TABLET PO SCH (21:25)
[2019-02-21] MEDS: IPRATROPIUM/ALBUTEROL 0.5-2.5 MG/3 ML AMPUL NEB SCH ×4 (02:35→20:54)
[2019-02-21] MEDS: HEPARIN SOD (PORCINE) 5,000 UNIT/ML 1 ML VIAL SUBCUT SCH ×3 (06:45→22:02)
[2019-02-21] MEDS: BUDESONIDE NEB 0.5 MG/2 ML AMPUL NEB SCH ×2 (09:03→20:54)
--- NOTE | 2019-02-21 10:08 | PDOC PROGRESS REPORT ---
Subjective Progress Note for:: 02/21/19 Subjective:: Patient today seems more oriented. Too weak to get OOB. Breathing easier. Reason For Visit: RESPIRATORY DISTRESS,COPD ACUTE,EX Physical Exam Vital Signs: Temp Pulse Resp BP Pulse Ox 98.2 F 118 H 22 H 131/74 H 90 L 02/21/19 07:43 02/21/19 09:00 02/21/19 09:00 02/21/19 07:43 02/21/19 09:00 Intake & Output 02/20/19 02/21/19 02/22/19 06:59 06:59 06:59 Intake Total 496 1010 Output Total 3800 1155 40 Balance -3304 -145 -40 Weight 75 kg 74.3 kg General appearance: PRESENT: no acute distress, cooperative Head exam: PRESENT: atraumatic Eye exam: PRESENT: conjunctiva pink, EOMI, PERRLA. ABSENT: scleral icterus Ear exam: PRESENT: normal external ear exam Mouth exam: PRESENT: dry mucosa, tongue midline Neck exam: PRESENT: full ROM. ABSENT: carotid bruit, JVD, lymphadenopathy, thyromegaly Respiratory exam: PRESENT: clear to auscultation bianca, unlabored Additional comments: Off bipap x24 hours. Cardiovascular exam: PRESENT: tachycardia Murmur grade: 3 Pulses: PRESENT: normal dorsalis pedis pul, +2 pedal pulses bilateral Vascular exam: PRESENT: normal capillary refill GI/Abdominal exam: PRESENT: soft Rectal exam: PRESENT: deferred Additional comments: Delgado removed this AM Extremities exam: PRESENT: full ROM Musculoskeletal exam: PRESENT: full ROM, normal inspection Additional comments: Very weak Neurological exam: PRESENT: alert, awake Results Laboratory Results: 02/20/19 04:49 02/20/19 04:49 02/12/19 02/12/19 02/12/19 18:46 18:46 18:46 Creatine Kinase 64 CK-MB (CK-2) 2.93 Troponin I < 0.012 NT-Pro-B Natriuret Pep 49760 H 02/13/19 02/13/19 04:11 04:11 Creatine Kinase 50 CK-MB (CK-2) 3.58 Troponin I < 0.012 NT-Pro-B Natriuret Pep 97087 H Impressions: Chest Ultrasound 02/12/19 17:35 IMPRESSION: No pleural effusions. Renal Ultrasound 02/13/19 00:00 IMPRESSION: There are chronic appearing changes in the kidneys with no acute finding. Chest CT 02/16/19 00:00 IMPRESSION: Decreased attenuation of the bilateral upper lungs possibly related to underlying emphysema. Small right pleural effusion. Mild bibasilar atelectasis. Mild enlargement of the main pulmonary artery, a finding compatible with provided history of pulmonary arterial hypertension. Small pericardial effusion. KUB X-Ray 02/16/19 10:19 IMPRESSION: Appropriate position of nasogastric tube. Chest X-Ray 02/17/19 06:00 IMPRESSION: Increase in bibasilar infiltrate as described. Support lines and tubes remain in satisfactory position. Assessment & Plan - Diagnosis (1) Acute and chronic respiratory failure Qualifiers: Respiratory failure complication: hypoxia and hypercapnia Qualified Code(s): J96.21 - Acute and chronic respiratory failure with hypoxia; J96.22 - Acute and chronic respiratory failure with hypercapnia Is this a current diagnosis for this admission?: Yes Plan: The acute phase is resolved. Getting back to baseline. (2) Acute exacerbation of chronic obstructive pulmonary disease (COPD) Is this a current diagnosis for this admission?: Yes Plan: Acute phase resolved now on PO prednisone. (3) Acute hypercapnic respiratory failure Is this a current diagnosis for this admission?: Yes Plan: Resolved (4) Oxygen dependent Is this a current diagnosis for this admission?: Yes Plan: On nasal cannula since yesterday. (5) Severe pulmonary arterial systolic hypertension Is this a current diagnosis for this admission?: Yes (6) Acute kidney failure Qualifiers: Acute renal failure type: unspecified Qualified Code(s): N17.9 - Acute kidney failure, unspecified Is this a current diagnosis for this admission?: Yes Plan: Resolved back to baseline (7) CKD (chronic kidney disease) stage 2, GFR 60-89 ml/min Is this a current diagnosis for this admission?: Yes Plan: Cr. 1.4but GRF 43. (8) Physical deconditioning Is this a current diagnosis for this admission?: Yes Plan: Her main problem now. She is too weak to go home needs rehab. However with no insurance at the moment this will not be possible. 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 She is down graded to the telemetry floor for her tachycardia which can get severe with activity due to deconditioning. - Time Time Spent with patient: 25-34 minutes Medications reviewed and adjusted accordingly: Yes Anticipated discharge: SNF Within: Other - Awaiting insurance coverage. - Inpatient Certification Medical Necessity: Significant Comorbidiites Make Outpatient Treatment Too Risky, Need For Continuous Telemetry Monitoring, Need for Nebulizer Therapy and Monitoring of Response
[2019-02-21] MEDS: PREDNISONE 20 MG TABLET PO SCH (10:34)
[2019-02-21] MEDS: SILDENAFIL CITRATE 20 MG TABLET PO SCH (10:34)
[2019-02-21] MEDS: FAMOTIDINE 20 MG TABLET PO SCH ×2 (10:35→22:02)
[2019-02-21] MEDS: SPIRONOLACTONE 25 MG TABLET PO SCH (10:35)
[2019-02-21] MEDS: CETIRIZINE 10 MG TABLET PO SCH (10:35)
[2019-02-21] MEDS: METHYLPREDNISOLONE INJ 40 MG/1 ML SDV IV SCH (10:39)
[2019-02-21] MEDS: ALPRAZOLAM 0.5 MG TABLET PO PRN (14:24)
[2019-02-21 15:53] LABS: ANION GAP 5 (5-19); BLOOD UREA NITROGEN 39 mg/dL (7-20); CALCIUM 9.9 mg/dL (8.4-10.2); CHLORIDE 95 mmol/L (98-107); GLUCOSE 109 mg/dL (75-110); POTASSIUM 4.5 mmol/L (3.6-5.0)
[2019-02-21 16:07] LABS: CARBON DIOXIDE 40 mmol/L (22-30)
[2019-02-21] MEDS: ALPRAZOLAM 0.25 MG TABLET PO SCH (22:02)
[2019-02-21] MEDS: ESCITALOPRAM OXALATE 10 MG TABLET PO SCH (22:02)
[2019-02-22] MEDS: IPRATROPIUM/ALBUTEROL 0.5-2.5 MG/3 ML AMPUL NEB SCH ×4 (02:17→20:01)
[2019-02-22] MEDS: HEPARIN SOD (PORCINE) 5,000 UNIT/ML 1 ML VIAL SUBCUT SCH ×3 (05:46→22:13)
[2019-02-22 05:50] LABS: HEMATOCRIT 32.4 % (36.0-47.0); HEMOGLOBIN 10.1 g/dL (12.0-15.5); MEAN CORPUSCULAR HEMOGLOBIN 31.5 pg (27.0-33.4); MEAN CORPUSCULAR HGB CONC 31.2 g/dL (32.0-36.0); MEAN CORPUSCULAR VOLUME 101 fl (80-97); PLATELET COUNT 135 10^3/uL (150-450); RED BLOOD COUNT 3.21 10^6/uL (3.72-5.28); RED CELL DISTRIBUTION WIDTH 16.5 % (11.5-14.0); WHITE BLOOD COUNT 15.4 10^3/uL (4.0-10.5)
[2019-02-22 07:11] LABS: ABSOLUTE LYMPHOCYTES# (MANUAL) 2.3 10^3/uL (0.5-4.7); ABSOLUTE MONOCYTES # (MANUAL) 0.6 10^3/uL (0.1-1.4); ANISOCYTOSIS 1+; BAND NEUTROPHILS % (MANUAL) 2 % (3-5); BASOPHILS % (MANUAL) 0 % (0-2); EOSINOPHILS % (MANUAL) 1 % (0-6); LYMPHOCYTES % (MANUAL) 12 % (13-45); MONOCYTES % (MANUAL) 4 % (3-13); SEGMENTED NEUTROPHILS % (MAN) 78 % (42-78); TOTAL CELLS COUNTED 100
[2019-02-22 07:12] LABS: PLATELET COMMENT DECREASED
[2019-02-22] MEDS: BUDESONIDE NEB 0.5 MG/2 ML AMPUL NEB SCH ×2 (08:04→20:01)
--- NOTE | 2019-02-22 11:15 | Progress Note ---
Provider Note Provider Note: Patient seen and examined this in the ICU Discussed with the erp manager Waiting for the telemetry bed
[2019-02-22] MEDS: PREDNISONE 20 MG TABLET PO SCH (11:30)
[2019-02-22] MEDS: METHYLPREDNISOLONE INJ 40 MG/1 ML SDV IV SCH (11:30)
[2019-02-22] MEDS: SPIRONOLACTONE 25 MG TABLET PO SCH (11:31)
[2019-02-22] MEDS: SILDENAFIL CITRATE 20 MG TABLET PO SCH (11:32)
[2019-02-22] MEDS: FAMOTIDINE 20 MG TABLET PO SCH ×2 (11:32→22:12)
[2019-02-22] MEDS: ALPRAZOLAM 0.25 MG TABLET PO SCH ×2 (11:32→22:12)
[2019-02-22] MEDS: CETIRIZINE 10 MG TABLET PO SCH (11:32)
--- NOTE | 2019-02-22 11:41 | PDOC PROGRESS REPORT ---
Subjective Progress Note for:: 02/22/19 Subjective:: Resting comfortably Reason For Visit: RESPIRATORY DISTRESS,COPD ACUTE,EX Physical Exam Vital Signs: Temp Pulse Resp BP Pulse Ox 98.0 F 91 18 131/70 H 99 02/22/19 08:11 02/22/19 08:11 02/22/19 08:35 02/22/19 08:11 02/22/19 08:35 Intake & Output 02/21/19 02/22/19 02/23/19 06:59 06:59 06:59 Intake Total 1010 222 240 Output Total 1155 830 Balance -145 -608 240 Weight 74.3 kg 75.3 kg General appearance: PRESENT: no acute distress, cooperative Head exam: PRESENT: atraumatic, normocephalic Eye exam: PRESENT: conjunctiva pink, EOMI, PERRLA. ABSENT: scleral icterus Ear exam: PRESENT: normal external ear exam Mouth exam: PRESENT: moist, tongue midline Neck exam: PRESENT: full ROM. ABSENT: carotid bruit, JVD, lymphadenopathy, thyromegaly Respiratory exam: PRESENT: clear to auscultation bianca, decreased breath sounds, unlabored Cardiovascular exam: PRESENT: tachycardia Murmur grade: 3 Pulses: PRESENT: normal dorsalis pedis pul, +2 pedal pulses bilateral Vascular exam: PRESENT: normal capillary refill GI/Abdominal exam: PRESENT: normal bowel sounds, soft. ABSENT: distended, guarding, mass, organolmegaly, rebound, tenderness Rectal exam: PRESENT: deferred Extremities exam: PRESENT: pedal edema Musculoskeletal exam: PRESENT: full ROM Additional comments: Very weak Neurological exam: PRESENT: alert, awake, oriented to person, oriented to place, oriented to time, oriented to situation Psychiatric exam: PRESENT: anxious Skin exam: PRESENT: dry, normal color Results Laboratory Results: 02/22/19 04:49 02/21/19 15:18 02/21/19 02/22/19 15:18 04:49 WBC 15.4 H RBC 3.21 L Hgb 10.1 L Hct 32.4 L MCV 101 H MCH 31.5 MCHC 31.2 L RDW 16.5 H Plt Count 135 L Seg Neutrophils % Not Reportable Sodium 140.4 Potassium 4.5 Chloride 95 L Carbon Dioxide 40 H* Anion Gap 5 BUN 39 H Creatinine 1.32 H Est GFR ( Amer) 50 L Glucose 109 Calcium 9.9 02/12/19 02/12/19 02/12/19 18:46 18:46 18:46 Creatine Kinase 64 CK-MB (CK-2) 2.93 Troponin I < 0.012 NT-Pro-B Natriuret Pep [id number] H 02/13/19 02/13/19 04:11 04:11 Creatine Kinase 50 CK-MB (CK-2) 3.58 Troponin I < 0.012 NT-Pro-B Natriuret Pep 09498 H Impressions: Chest Ultrasound 02/12/19 17:35 IMPRESSION: No pleural effusions. Renal Ultrasound 02/13/19 00:00 IMPRESSION: There are chronic appearing changes in the kidneys with no acute finding. Chest CT 02/16/19 00:00 IMPRESSION: Decreased attenuation of the bilateral upper lungs possibly related to underlying emphysema. Small right pleural effusion. Mild bibasilar atelectasis. Mild enlargement of the main pulmonary artery, a finding compatible with p rovided history of pulmonary arterial hypertension. Small pericardial effusion. KUB X-Ray 02/16/19 10:19 IMPRESSION: Appropriate position of nasogastric tube. Chest X-Ray 02/17/19 06:00 IMPRESSION: Increase in bibasilar infiltrate as described. Support lines and tubes remain in satisfactory position. Assessment & Plan - Diagnosis (1) Acute hypercapnic respiratory failure Is this a current diagnosis for this admission?: Yes Plan: Bicarb is up to 40 C/W hypercapnia. Tends to waiver (2) Oxygen dependent Is this a current diagnosis for this admission?: Yes Plan: On nasal cannula as at baseline. (3) Severe pulmonary arterial systolic hypertension Is this a current diagnosis for this admission?: Yes Plan: Stable (4) CKD (chronic kidney disease) stage 2, GFR 60-89 ml/min Is this a current diagnosis for this admission?: Yes Plan: Back at baseline (5) Physical deconditioning Is this a current diagnosis for this admission?: Yes Plan: Too weak to even get out of bed. Needs rehab. HR as expected also increases with activity - Time Time Spent with patient: 15-24 minutes Medications reviewed and adjusted accordingly: Yes Anticipated discharge: SNF Within: within 72 hours - Inpatient Certification Based on my medical assessment, after consideration of the patient's comorbidities, presenting symptoms, or acuity I expect that the services needed warrant INPATIENT care.: Yes I certify that my determination is in accordance with my understanding of Medicare's requirements for reasonable and necessary INPATIENT services [42 CFR 412.3e].: Yes Medical Necessity: Failure to Improve With Outpatient Therapy, Significant Comorbidiites Make Outpatient Treatment Too Risky, Need Close Monitoring Due to Risk of Patient Decompensation
--- NOTE | 2019-02-22 13:38 | PDOC CONSULTATION ---
Consultation Consult Date: 02/22/19 Attending physician:: LETICIA SANCHEZ Provider Consulted: RALPH BERRIOS Consult reason:: Medical Management/Rehab History of Present Illness Admission Date/PCP: 02/12/19 21:53 KAMRON SINGER Patient complains of: None at this time History of Present Illness: CECILE BERRIOS is a 63 year old female Past Medical History Cardiac Medical History: Reports: Congestive Heart Failure, Hypertension Pulmonary Medical History: Reports: Bronchitis, Chronic Obstructive Pulmonary Disease (COPD), Respiratory Failure EENT Medical History: Reports: None Neurological Medical History: Reports: None Endocrine Medical History: Reports: None Renal/ Medical History: Reports: Chronic Kidney Disease Malignancy Medical History: Reports: None GI Medical History: Reports: None Musculoskeltal Medical History: Reports: None Skin Medical History: Reports: None Psychiatric Medical History: Reports: Depression, General Anxiety Disorder Hematology: Reports: None Denies: Sickle Cell Disease Infectious Medical History: Reports: None Past Surgical History Past Surgical History: Reports: Hysterectomy Social History Information Source: Patient Lives with: Family Smoking Status: Former Smoker Cigarettes Packs Per Day: 2 Electronic Cigarette use?: No Number of Years Smokin Last Time Smoked: 1 year ago Frequency of Alcohol Use: None Hx Recreational Drug Use: No Drugs: None Hx Prescription Drug Abuse: No - Advance Directive Resuscitation Status: Full Code Family History Family History: None, COPD, DM, Hypertension, Malignancy. denies: Arthritis, CAD, CVA, Hyperlipidemia, Thyroid Disfunction Parental Family History Reviewed: Yes Children Family History Reviewed: Yes Sibling(s) Family History Reviewed.: Yes Medication/Allergy Home Medications: Alprazolam [Xanax 0.25 mg Tablet] 0.25 mg PO Q12 02/12/19 Buspirone HCl [Buspar 15 mg Tablet] 7.5 mg PO Q12 02/12/19 Cetirizine HCl [Zyrtec 10 mg Tablet] 10 mg PO DAILY 02/12/19 Escitalopram Oxalate [Lexapro 10 mg Tablet] 10 mg PO QHS 02/12/19 Levalbuterol HCl [Levalbuterol Concentrate] 1.25 mg NEB Q8HP PRN 02/12/19 Metoprolol Succinate [Toprol XL 100 mg Tablet] 100 mg PO DAILY 02/12/19 Potassium Chloride [Klor-Con 10 Meq Capsule ER] 10 meq PO Q2D 02/12/19 Spironolactone [Aldactone 25 mg Tablet] 12.5 mg PO DAILY 02/12/19 Allergies/Adverse Reactions: No Known Allergies Allergy (Verified 01/18/18 18:24) Review of Systems Constitutional: PRESENT: weakness. ABSENT: chills, fever(s), headache(s), weight gain, weight loss Eyes: ABSENT: visual disturbances Ears: ABSENT: hearing changes Cardiovascular: ABSENT: chest pain, dyspnea on exertion, edema, orthropnea, palpitations Respiratory: ABSENT: cough, hemoptysis Gastrointestinal: ABSENT: abdominal pain, constipation, diarrhea, hematemesis, hematochezia, nausea, vomiting Genitourinary: ABSENT: dysuria, hematuria Musculoskeletal: ABSENT: joint swelling Integumentary: ABSENT: rash, wounds Neurological: ABSENT: abnormal gait, abnormal speech, confusion, dizziness, focal weakness, syncope Psychiatric: ABSENT: anxiety, depression, homidical ideation, suicidal ideation Endocrine: ABSENT: cold intolerance, heat intolerance, polydipsia, polyuria Hematologic/Lymphatic: ABSENT: easy bleeding, easy bruising Physical Exam Vital Signs: Temp Pulse Resp BP Pulse Ox 98.2 F 99 20 128/62 H 100 02/22/19 12:00 02/22/19 12:00 02/22/19 12:00 02/22/19 12:00 02/22/19 12:00 Intake & Output 02/21/19 02/22/19 02/23/19 06:59 06:59 06:59 Intake Total 1010 222 240 Output Total 1155 830 0 Balance -145 -608 240 Weight 74.3 kg 75.3 kg General appearance: PRESENT: no acute distress, well-developed, well-nourished Neck exam: ABSENT: carotid bruit, JVD, lymphadenopathy, thyromegaly Respiratory exam: PRESENT: clear to auscultation bianca, decreased breath sounds, symmetrical, unlabored. ABSENT: rales, rhonchi, wheezes Cardiovascular exam: PRESENT: RRR. ABSENT: diastolic murmur, rubs, systolic murmur Pulses: PRESENT: +1 pedal pulses bilateral Vascular exam: PRESENT: normal capillary refill GI/Abdominal exam: PRESENT: normal bowel sounds, soft. ABSENT: distended, guarding, mass, organolmegaly, rebound, tenderness Extremities exam: PRESENT: full ROM. ABSENT: calf tenderness, clubbing, pedal edema Neurological exam: PRESENT: alert, awake, oriented to person, oriented to place, oriented to time, oriented to situation, CN II-XII grossly intact. ABSENT: motor sensory deficit Psychiatric exam: PRESENT: appropriate affect, normal mood. ABSENT: homicidal ideation, suicidal ideation Skin exam: PRESENT: dry, intact, warm. ABSENT: cyanosis, rash Results Laboratory Results: 02/22/19 04:49 02/21/19 15:18 02/21/19 02/22/19 15:18 04:49 WBC 15.4 H RBC 3.21 L Hgb 10.1 L Hct 32.4 L MCV 101 H MCH 31.5 MCHC 31.2 L RDW 16.5 H Plt Count 135 L Seg Neutrophils % Not Reportable Sodium 140.4 Potassium 4.5 Chloride 95 L Carbon Dioxide 40 H* Anion Gap 5 BUN 39 H Creatinine 1.32 H Est GFR ( Amer) 50 L Glucose 109 Calcium 9.9 02/12/19 02/12/19 02/12/19 18:46 18:46 18:46 Creatine Kinase 64 CK-MB (CK-2) 2.93 Troponin I < 0.012 NT-Pro-B Natriuret Pep 25622 H 02/13/19 02/13/19 04:11 04:11 Creatine Kinase 50 CK-MB (CK-2) 3.58 Troponin I < 0.012 NT-Pro-B Natriuret Pep 76118 H Impressions: Chest Ultrasound 02/12/19 17:35 IMPRESSION: No pleural effusions. Renal Ultrasound 02/13/19 00:00 IMPRESSION: There are chronic appearing changes in the kidneys with no acute finding. Chest CT 02/16/19 00:00 IMPRESSION: Decreased attenuation of the bilateral upper lungs possibly related to underlying emphysema. Small right pleural effusion. Mild bibasilar atelectasis. Mild enlargement of the main pulmonary artery, a finding compatible with provided history of pulmonary arterial hypertension. Small pericardial effusion. KUB X-Ray 02/16/19 10:19 IMPRESSION: Appropriate position of nasogastric tube. Chest X-Ray 02/17/19 06:00 IMPRESSION: Increase in bibasilar infiltrate as described. Support lines and tubes remain in satisfactory position. Assessment and Plan - Diagnosis (1) Acute hypercapnic respiratory failure Is this a current diagnosis for this admission?: Yes Plan: 2018-improved. Patient on 2 L nasal cannula at this time. Sats are in the mid 90s. Patient did have high pulmonary artery pressures 90s over 60s and has been placed on Viagra. Bicarb tends to wax and wane 40 this morning. Most likely will require BiPAP overnight (2) Oxygen dependent Is this a current diagnosis for this admission?: Yes Plan: 2018-continue supplemental oxygen as needed (3) Severe pulmonary arterial systolic hypertension Is this a current diagnosis for this admission?: Yes Plan: 02/22/2019-patient remains on Viagra 25 mg daily. Can max out at 50 mg daily. We will continue to follow (4) CKD (chronic kidney disease) stage 2, GFR 60-89 ml/min Is this a current diagnosis for this admission?: Yes Plan: 02/22/2019-stable continue to follow with daily BMP (5) Physical deconditioning Is this a current diagnosis for this admission?: Yes Plan: 02/22/2019-physical and Occupational Therapy. We will have nurses work with patient for conditioning as well. - Time Time Spent with patient: 35 or more minutes - Inpatient Certification Based on my medical assessment, after consideration of the patient's comorbidities, presenting symptoms, or acuity I expect that the services needed warrant INPATIENT care.: Yes I certify that my determination is in accordance with my understanding of Medicare's requirements for reasonable and necessary INPATIENT services [42 CFR 412.3e].: Yes Medical Necessity: Significant Comorbidiites Make Outpatient Treatment Too Risky, Need Close Monitoring Due to Risk of Patient Decompensation
[2019-02-22] MEDS: ALPRAZOLAM 0.5 MG TABLET PO PRN (18:31)
[2019-02-22] MEDS: ESCITALOPRAM OXALATE 10 MG TABLET PO SCH (22:12)
[2019-02-23] MEDS: IPRATROPIUM/ALBUTEROL 0.5-2.5 MG/3 ML AMPUL NEB SCH ×4 (02:05→20:10)
[2019-02-23] MEDS: HEPARIN SOD (PORCINE) 5,000 UNIT/ML 1 ML VIAL SUBCUT SCH ×3 (05:16→22:17)
[2019-02-23 07:46] LABS: HEMATOCRIT 33.3 % (36.0-47.0); HEMOGLOBIN 10.6 g/dL (12.0-15.5); MEAN CORPUSCULAR HEMOGLOBIN 31.9 pg (27.0-33.4); MEAN CORPUSCULAR HGB CONC 31.7 g/dL (32.0-36.0); MEAN CORPUSCULAR VOLUME 101 fl (80-97); RED BLOOD COUNT 3.31 10^6/uL (3.72-5.28); RED CELL DISTRIBUTION WIDTH 16.1 % (11.5-14.0)
[2019-02-23 08:01] LABS: BLOOD UREA NITROGEN 28 mg/dL (7-20); CALCIUM 9.5 mg/dL (8.4-10.2); CHLORIDE 98 mmol/L (98-107); GLUCOSE 77 mg/dL (75-110); POTASSIUM 4.9 mmol/L (3.6-5.0)
[2019-02-23 08:07] LABS: PLATELET COUNT 91 10^3/uL (150-450)
[2019-02-23 08:12] LABS: ANION GAP 4 (5-19); CARBON DIOXIDE 39 mmol/L (22-30)
--- NOTE | 2019-02-23 08:31 | PDOC PROGRESS REPORT ---
Subjective Progress Note for:: 02/23/19 Subjective:: 02/23/2019-no complaints this a.m. No events overnight. Reason For Visit: RESPIRATORY DISTRESS,COPD ACUTE,EX Physical Exam Vital Signs: Temp Pulse Resp BP Pulse Ox 98.0 F 89 24 H 146/77 H 93 02/23/19 03:22 02/23/19 03:22 02/23/19 04:36 02/23/19 03:22 02/23/19 04:36 Intake & Output 02/22/19 02/23/19 02/24/19 06:59 06:59 06:59 Intake Total 222 240 Output Total 830 0 Balance -608 240 Weight 75.3 kg 74.6 kg General appearance: PRESENT: no acute distress Neck exam: ABSENT: carotid bruit, JVD, lymphadenopathy, thyromegaly Respiratory exam: PRESENT: decreased breath sounds, symmetrical, unlabored, other - On BiPAP Cardiovascular exam: PRESENT: RRR. ABSENT: diastolic murmur, rubs, systolic murmur Pulses: PRESENT: normal dorsalis pedis pul Vascular exam: PRESENT: normal capillary refill GI/Abdominal exam: PRESENT: normal bowel sounds, soft. ABSENT: distended, guarding, mass, organolmegaly, rebound, tenderness Extremities exam: PRESENT: full ROM. ABSENT: calf tenderness, clubbing, pedal edema Neurological exam: PRESENT: alert, awake, oriented to person, oriented to place, oriented to time, oriented to situation, CN II-XII grossly intact. ABSENT: motor sensory deficit Psychiatric exam: PRESENT: appropriate affect, normal mood. ABSENT: homicidal ideation, suicidal ideation Skin exam: PRESENT: dry, intact, warm. ABSENT: cyanosis, rash Adult Front & Back Image: 1 - [place] site Results Laboratory Results: 02/23/19 06:33 02/23/19 06:33 02/23/19 02/23/19 06:33 06:33 WBC 15.0 H RBC 3.31 L Hgb 10.6 L Hct 33.3 L MCV 101 H MCH 31.9 MCHC 31.7 L RDW 16.1 H Plt Count 91 L Sodium 141.1 Potassium 4.9 Chloride 98 Carbon Dioxide 39 H Anion Gap 4 L BUN 28 H Creatinine 0.92 Est GFR ( Amer) > 60 Glucose 77 Calcium 9.5 02/12/19 02/12/19 02/12/19 18:46 18:46 18:46 Creatine Kinase 64 CK-MB (CK-2) 2.93 Troponin I < 0.012 NT-Pro-B Natriuret Pep [id number] H 02/13/19 02/13/19 04:11 04:11 Creatine Kinase 50 CK-MB (CK-2) 3.58 Troponin I < 0.012 NT-Pro-B Natriuret Pep 31104 H Impressions: Chest Ultrasound 02/12/19 17:35 IMPRESSION: No pleural effusions. Renal Ultrasound 02/13/19 00:00 IMPRESSION: There are chronic appearing changes in the kidneys with no acute finding. Chest CT 02/16/19 00:00 IMPRESSION: Decreased attenuation of the bilateral upper lungs possibly related to underlying emphysema. Small right pleural effusion. Mild bibasilar atelectasis. Mild enlargement of the main pulmonary artery, a finding compatible with prov ided history of pulmonary arterial hypertension. Small pericardial effusion. KUB X-Ray 02/16/19 10:19 IMPRESSION: Appropriate position of nasogastric tube. Chest X-Ray 02/17/19 06:00 IMPRESSION: Increase in bibasilar infiltrate as described. Support lines and tubes remain in satisfactory position. Assessment and Plan - Diagnosis (1) Acute hypercapnic respiratory failure Is this a current diagnosis for this admission?: Yes Plan: 2018-improved. Patient on 2 L nasal cannula at this time. Sats are in the mid 90s. Patient did have high pulmonary artery pressures 90s over 60s and has been placed on Viagra. Bicarb tends to wax and wane 40 this morning. Most likely will require BiPAP overnight 02/23/2019-patient placed on BiPAP overnight. Sats are maintaining well. Patient continues on Viagra. Will follow (2) Oxygen dependent Is this a current diagnosis for this admission?: Yes Plan: 2018-continue supplemental oxygen as needed 02/23/2019-continue submental oxygen (3) Severe pulmonary arterial systolic hypertension Is this a current diagnosis for this admission?: Yes Plan: 02/22/2019-patient remains on Viagra 25 mg daily. Can max out at 50 mg daily. We will continue to follow 02/23/2019-continue Viagra (4) CKD (chronic kidney disease) stage 2, GFR 60-89 ml/min Is this a current diagnosis for this admission?: Yes Plan: 02/22/2019-stable continue to follow with daily BMP 02/23/2019-stable continue to follow (5) Physical deconditioning Is this a current diagnosis for this admission?: Yes Plan: 02/22/2019-physical and Occupational Therapy. We will have nurses work with patient for conditioning as well. 02/23/2019-continue physical and occupational therapy. - Time Time Spent with patient: 15-24 minutes - Inpatient Certification Based on my medical assessment, after consideration of the patient's comorbidities, presenting symptoms, or acuity I expect that the services needed warrant INPATIENT care.: Yes I certify that my determination is in accordance with my understanding of Medicare's requirements for reasonable and necessary INPATIENT services [42 CFR 412.3e].: Yes Medical Necessity: Significant Comorbidiites Make Outpatient Treatment Too Risky - Rehab, Need Close Monitoring Due to Risk of Patient Decompensation
[2019-02-23] MEDS: BUDESONIDE NEB 0.5 MG/2 ML AMPUL NEB SCH ×2 (08:55→20:10)
[2019-02-23] MEDS: PREDNISONE 20 MG TABLET PO SCH (10:39)
[2019-02-23] MEDS: METHYLPREDNISOLONE INJ 40 MG/1 ML SDV IV SCH (10:39)
[2019-02-23] MEDS: ALPRAZOLAM 0.25 MG TABLET PO SCH ×2 (10:40→22:19)
[2019-02-23] MEDS: SPIRONOLACTONE 25 MG TABLET PO SCH (10:40)
[2019-02-23] MEDS: FAMOTIDINE 20 MG TABLET PO SCH ×2 (10:40→22:20)
[2019-02-23] MEDS: CETIRIZINE 10 MG TABLET PO SCH (10:43)
--- NOTE | 2019-02-23 10:43 | PDOC PROGRESS REPORT ---
Subjective Progress Note for:: 02/18/19 Subjective:: Patient was admitted with shortness of breath. She was noted to have severe CO2 retention and was subsequently transferred to the unit. Patient was noted to have acute on chronic respiratory failure. Patient on questioning denied any chest pain.Events of the weekends were reviewed. Patient ended up needing a [place] PA catheter, milrinone and vasopressin infusion. She also got intubated for respiratory failure. Patient was noted to have relatively stable vital signs. Lab work were reviewed. CT scan performed reviewed. Chest x-ray reviewed. 02/18/19 Patient remains intubated, low-grade sedation with Dexmedidine infusion. Currently of milrinone and with vasopressin drip and maintaining vitals well. Reason For Visit: RESPIRATORY DISTRESS,COPD ACUTE,EX Physical Exam Vital Signs: Temp Pulse Resp BP Pulse Ox 99.7 F 80 14 113/92 H 92 02/18/19 16:00 02/18/19 20:00 02/18/19 20:00 02/18/19 18:00 02/18/19 20:00 Intake & Output 02/17/19 02/18/19 02/19/19 06:59 06:59 06:59 Intake Total 2813 1438 915 Output Total 1215 4020 3600 Balance 5728 -2048 -0945 Weight 80.9 kg 81.5 kg 81.5 kg Exam: Patient remains intubated. She is relatively stable otherwise. No other significant change. Agree with exam with the video manager. Discussed with video manager. Results Laboratory Results: 02/17/19 03:46 02/17/19 03:46 02/17/19 02/18/19 02/18/19 23:31 03:47 08:13 Carbonic Acid 1.03 L 0.92 L 1.68 H HCO3/H2CO3 Ratio 24:1 24:1 25:1 ABG pH 7.48 H 7.49 H 7.50 H ABG pCO2 34.1 L 30.5 L 55.8 H ABG pO2 66.9 L 60.9 L 56.8 L ABG HCO3 25.0 H 22.5 42.8 H ABG O2 Saturation 94.7 93.4 L 91.2 L ABG Base Excess 1.5 -0.8 17.2 FiO2 50% 40% 40% 02/18/19 02/18/19 11:37 15:40 Carbonic Acid 1.54 H 1.66 H HCO3/H2CO3 Ratio 24:1 26:1 ABG pH 7.49 H 7.52 H ABG pCO2 51.3 H 55.2 H ABG pO2 56.6 L 53.9 L ABG HCO3 37.9 H 44.5 H ABG O2 Saturation 91.0 L 90.4 L ABG Base Excess 12.7 19.0 FiO2 40% 40% 02/13/19 13:17 Blood Blood Culture - Final NO GROWTH IN 5 DAYS 02/16/19 08:40 [place] Catheter Urine Culture - Final NO GROWTH 2 DAYS 02/16/19 18:30 Bronchial Washings Gram Stain - Final 02/16/19 18:30 Bronchial Washings Bronchial Washings Culture - Final NO GROWTH 2 DAYS 02/16/19 18:30 Bronchial Washings Gram Stain - Final 02/16/19 18:30 Bronchial Washings Bronchial Washings Culture - Final NO GROWTH 2 DAYS 02/16/19 11:36 Tracheal Aspirate Gram Stain - Final 02/16/19 11:36 Tracheal Aspirate Sputum Culture - Final REDUCED NORMAL VALENTIN 02/12/19 22:17 Blood Blood Culture - Final NO GROWTH IN 5 DAYS 02/12/19 02/12/19 02/12/19 18:46 18:46 18:46 Creatine Kinase 64 CK-MB (CK-2) 2.93 Troponin I < 0.012 NT-Pro-B Natriuret Pep [id number] H 02/13/19 02/13/19 04:11 04:11 Creatine Kinase 50 CK-MB (CK-2) 3.58 Troponin I < 0.012 NT-Pro-B Natriuret Pep 63173 H Impressions: Chest Ultrasound 02/12/19 17:35 IMPRESSION: No pleural effusions. Renal Ultrasound 02/13/19 00:00 IMPRESSION: There are chronic appearing changes in the kidneys with no acute finding. Chest CT 02/16/19 00:00 IMPRESSION: Decreased attenuation of the bilateral upper lungs possibly related to underlying emphysema. Small right pleural effusion. Mild bibasilar atelectasis. Mild enlargement of the main pulmonary artery, a finding compatible with provid ed history of pulmonary arterial hypertension. Small pericardial effusion. KUB X-Ray 02/16/19 10:19 IMPRESSION: Appropriate position of nasogastric tube. Chest X-Ray 02/17/19 06:00 IMPRESSION: Increase in bibasilar infiltrate as described. Support lines and tubes remain in satisfactory position. Assessment & Plan - Diagnosis (1) Acute and chronic respiratory failure Qualifiers: Respiratory failure complication: hypoxia and hypercapnia Qualified Code(s): J96.21 - Acute and chronic respiratory failure with hypoxia; J96.22 - Acute and chronic respiratory failure with hypercapnia Is this a current diagnosis for this admission?: Yes (2) Acute exacerbation of chronic obstructive pulmonary disease (COPD) Is this a current diagnosis for this admission?: Yes (3) COPD exacerbation Is this a current diagnosis for this admission?: Yes (4) CHF (congestive heart failure) Qualifiers: Heart failure type: right-sided Heart failure chronicity: acute on chronic Qualified Code(s): I50.813 - Acute on chronic right heart failure Is this a current diagnosis for this admission?: Yes - Notes Notes: Patient remains intubated. She is relatively stable otherwise. No other significant change. Agree with exam with the video manager. Discussed with in tensivist. - Time Time with patient: 15-25 minutes Medications reviewed and adjusted accordingly: Yes
[2019-02-23] MEDS: SILDENAFIL CITRATE 20 MG TABLET PO SCH (10:44)
[2019-02-23] MEDS: ESCITALOPRAM OXALATE 10 MG TABLET PO SCH (22:20)
[2019-02-24] MEDS: IPRATROPIUM/ALBUTEROL 0.5-2.5 MG/3 ML AMPUL NEB SCH ×4 (02:23→21:00)
[2019-02-24] MEDS: HEPARIN SOD (PORCINE) 5,000 UNIT/ML 1 ML VIAL SUBCUT SCH ×3 (05:11→21:22)
[2019-02-24 06:51] LABS: BLOOD UREA NITROGEN 25 mg/dL (7-20); CALCIUM 9.8 mg/dL (8.4-10.2); CHLORIDE 96 mmol/L (98-107); GLUCOSE 71 mg/dL (75-110); POTASSIUM 4.3 mmol/L (3.6-5.0)
[2019-02-24 07:22] LABS: ANION GAP 3 (5-19); CARBON DIOXIDE 41 mmol/L (22-30)
--- NOTE | 2019-02-24 08:02 | PDOC PROGRESS REPORT ---
Subjective Progress Note for:: 02/24/19 Subjective:: 02/23/2019-no complaints this a.m. No events overnight. 02/24/2019-no complaints. No events overnight. Reason For Visit: RESPIRATORY DISTRESS,COPD ACUTE,EX Physical Exam Vital Signs: Temp Pulse Resp BP Pulse Ox 98.0 F 110 H 18 134/68 H 96 02/24/19 00:00 02/24/19 02:25 02/24/19 02:25 02/24/19 00:00 02/24/19 02:25 Intake & Output 02/23/19 02/24/19 02/25/19 06:59 06:59 06:59 Intake Total 240 1040 Output Total 0 1500 Balance 240 -460 Weight 74.6 kg 76.9 kg General appearance: PRESENT: no acute distress, well-developed, well-nourished Neck exam: ABSENT: carotid bruit, JVD, lymphadenopathy, thyromegaly Respiratory exam: PRESENT: clear to auscultation bianca, decreased breath sounds, symmetrical, unlabored. ABSENT: rales, rhonchi, wheezes Cardiovascular exam: PRESENT: RRR. ABSENT: diastolic murmur, rubs, systolic murmur Pulses: PRESENT: +1 pedal pulses bilateral Vascular exam: PRESENT: normal capillary refill GI/Abdominal exam: PRESENT: normal bowel sounds, soft. ABSENT: distended, guarding, mass, organolmegaly, rebound, tenderness Extremities exam: PRESENT: full ROM. ABSENT: calf tenderness, clubbing, pedal edema Neurological exam: PRESENT: alert, awake, oriented to person, oriented to place, oriented to time, oriented to situation, CN II-XII grossly intact. ABSENT: motor sensory deficit Psychiatric exam: PRESENT: appropriate affect, normal mood. ABSENT: homicidal ideation, suicidal ideation Skin exam: PRESENT: dry, intact, warm. ABSENT: cyanosis, rash Results Laboratory Results: 02/24/19 06:16 02/24/19 06:16 02/23/19 02/23/19 02/24/19 06:33 06:33 06:16 WBC 15.0 H Cancelled RBC 3.31 L Cancelled Hgb 10.6 L Cancelled Hct 33.3 L Cancelled MCV 101 H Cancelled MCH 31.9 Cancelled MCHC 31.7 L Cancelled RDW 16.1 H Cancelled Plt Count 91 L Cancelled Sodium 141.1 Potassium 4.9 Chloride 98 Carbon Dioxide 39 H Anion Gap 4 L BUN 28 H Creatinine 0.92 Est GFR ( Amer) > 60 Glucose 77 Calcium 9.5 02/24/19 06:16 WBC RBC Hgb Hct MCV MCH MCHC RDW Plt Count Sodium 139.6 Potassium 4.3 Chloride 96 L Carbon Dioxide 41 H* Anion Gap 3 L BUN 25 H Creatinine 0.87 Est GFR ( Amer) > 60 Glucose 71 L Calcium 9.8 02/12/19 02/12/19 02/12/19 18:46 18:46 18:46 Creatine Kinase 64 CK-MB (CK-2) 2.93 Troponin I < 0.012 NT-Pro-B Natriuret Pep 40067 H 02/13/19 02/13/19 04:11 04:11 Creatine Kinase 50 CK-MB (CK-2) 3.58 Troponin I < 0.012 NT-Pro-B Natriuret Pep 63955 H Impressions: Chest Ultrasound 02/12/19 17:35 IMPRESSION: No pleural effusions. Renal Ultrasound 02/13/19 00:00 IMPRESSION: There are chronic appearing changes in the kidneys with no acute finding. Chest CT 02/16/19 00:00 IMPRESSION: Decreased attenuation of the bilateral upper lungs possibly related to underlying emphysema. Small right pleural effusion. Mild bibasilar atelectasis. Mild enlargement of the main pulmonary artery, a finding compatible with provided history of pulmonary arterial hypertension. Small pericardial effusion. KUB X-Ray 02/16/19 10:19 IMPRESSION: Appropriate position of nasogastric tube. Chest X-Ray 02/17/19 06:00 IMPRESSION: Increase in bibasilar infiltrate as described. Support lines and tubes remain in satisfactory position. Assessment and Plan - Diagnosis (1) Acute hypercapnic respiratory failure Is this a current diagnosis for this admission?: Yes Plan: 2018-improved. Patient on 2 L nasal cannula at this time. Sats are in the mid 90s. Patient did have high pulmonary artery pressures 90s over 60s and has been placed on Viagra. Bicarb tends to wax and wane 40 this morning. Most likely will require BiPAP overnight 02/23/2019-patient placed on BiPAP overnight. Sats are maintaining well. Patient continues on Viagra. Will follow 02/24/2019-continues BiPAP at night. Maintaining sats at this time on 2 L nasal cannula. (2) Oxygen dependent Is this a current diagnosis for this admission?: Yes Plan: 2018-continue supplemental oxygen as needed 02/23/2019-continue submental oxygen 02/24/2019-supplemental oxygen continues (3) Severe pulmonary arterial systolic hypertension Is this a current diagnosis for this admission?: Yes Plan: 02/22/2019-patient remains on Viagra 20 mg daily. Can max out at 50 mg daily. We will continue to follow 02/23/2019-continue Viagra 02/24/2019-continue Viagra (4) CKD (chronic kidney disease) stage 2, GFR 60-89 ml/min Is this a current diagnosis for this admission?: Yes Plan: 02/22/2019-stable continue to follow with daily BMP 02/23/2019-stable continue to follow 02/24/2019-stable (5) Physical deconditioning Is this a current diagnosis for this admission?: Yes Plan: 02/22/2019-physical and Occupational Therapy. We will have nurses work with patient for conditioning as well. 02/23/2019-continue physical and occupational therapy. 02/24/2019-continue physical and occupational therapy - Time Time Spent with patient: 15-24 minutes - Inpatient Certification Based on my medical assessment, after consideration of the patient's comorbidities, presenting symptoms, or acuity I expect that the services needed warrant INPATIENT care.: Yes I certify that my determination is in accordance with my understanding of Medicare's requirements for reasonable and necessary INPATIENT services [42 CFR 412.3e].: Yes Medical Necessity: Significant Comorbidiites Make Outpatient Treatment Too Risky - Rehab, Need Close Monitoring Due to Risk of Patient Decompensation
[2019-02-24] MEDS: BUDESONIDE NEB 0.5 MG/2 ML AMPUL NEB SCH ×2 (08:30→21:00)
[2019-02-24] MEDS: CETIRIZINE 10 MG TABLET PO SCH (09:25)
[2019-02-24] MEDS: SPIRONOLACTONE 25 MG TABLET PO SCH (09:25)
[2019-02-24] MEDS: ALPRAZOLAM 0.25 MG TABLET PO SCH ×2 (09:25→21:25)
[2019-02-24] MEDS: PREDNISONE 20 MG TABLET PO SCH (09:27)
[2019-02-24] MEDS: FAMOTIDINE 20 MG TABLET PO SCH ×2 (09:27→21:25)
[2019-02-24] MEDS: SILDENAFIL CITRATE 20 MG TABLET PO SCH (09:27)
[2019-02-24 10:28] LABS: HEMATOCRIT 28.7 % (36.0-47.0); HEMOGLOBIN 9.2 g/dL (12.0-15.5); MEAN CORPUSCULAR HGB CONC 32.2 g/dL (32.0-36.0); MEAN CORPUSCULAR VOLUME 99 fl (80-97); PLATELET COUNT 146 10^3/uL (150-450); RED BLOOD COUNT 2.89 10^6/uL (3.72-5.28); RED CELL DISTRIBUTION WIDTH 15.7 % (11.5-14.0)
[2019-02-24] MEDS: ALPRAZOLAM 0.5 MG TABLET PO PRN (17:05)
[2019-02-24] MEDS: ESCITALOPRAM OXALATE 10 MG TABLET PO SCH (21:25)
[2019-02-25] MEDS: IPRATROPIUM/ALBUTEROL 0.5-2.5 MG/3 ML AMPUL NEB SCH ×4 (02:32→21:07)
[2019-02-25] MEDS: HEPARIN SOD (PORCINE) 5,000 UNIT/ML 1 ML VIAL SUBCUT SCH ×3 (05:14→22:35)
[2019-02-25 06:45] LABS: BLOOD UREA NITROGEN 24 mg/dL (7-20); CALCIUM 9.8 mg/dL (8.4-10.2); CHLORIDE 94 mmol/L (98-107); POTASSIUM 4.1 mmol/L (3.6-5.0)
[2019-02-25 07:14] LABS: ANION GAP 0 (5-19); CARBON DIOXIDE 45 mmol/L (22-30); GLUCOSE 60 mg/dL (75-110)
[2019-02-25 07:18] LABS: COMPLEMENT C2 1.2 mg/dL (1.6-4.0)
[2019-02-25] MEDS: BUDESONIDE NEB 0.5 MG/2 ML AMPUL NEB SCH ×2 (08:11→21:07)
[2019-02-25] MEDS: SPIRONOLACTONE 25 MG TABLET PO SCH (09:17)
[2019-02-25] MEDS: PREDNISONE 20 MG TABLET PO SCH (09:17)
[2019-02-25] MEDS: CETIRIZINE 10 MG TABLET PO SCH (09:17)
[2019-02-25] MEDS: FAMOTIDINE 20 MG TABLET PO SCH ×2 (09:18→22:26)
[2019-02-25] MEDS: SILDENAFIL CITRATE 20 MG TABLET PO SCH (09:19)
[2019-02-25] MEDS: ALPRAZOLAM 0.25 MG TABLET PO SCH ×2 (09:19→22:26)
[2019-02-25] MEDS: ALPRAZOLAM 0.5 MG TABLET PO PRN ×2 (14:50→20:37)
--- NOTE | 2019-02-25 17:09 | PDOC PROGRESS REPORT ---
Subjective Progress Note for:: 02/25/19 Subjective:: No adverse events overnight. She gets very tachycardic with the slightest exertion. It takes her heart rate several minutes to recover. Her heart rate seems to run between 101-110 whenever she is completely at rest. Reason For Visit: RESPIRATORY DISTRESS,COPD ACUTE,EX Physical Exam Vital Signs: Temp Pulse Resp BP Pulse Ox 97.7 F 109 H 16 129/69 H 94 02/25/19 07:46 02/25/19 14:28 02/25/19 14:28 02/25/19 07:46 02/25/19 14:28 Intake & Output 02/24/19 02/25/19 02/26/19 06:59 06:59 06:59 Intake Total 1040 717 Output Total 1500 Balance -460 717 Weight 76.9 kg 75.3 kg 75.3 kg General appearance: PRESENT: cooperative, disheveled, mild distress, obese Respiratory exam: PRESENT: accessory muscle use, decreased breath sounds, symmetrical, tachypnea. ABSENT: chest wall tenderness, crackles, prolonged expiratory phas, rhonchi, unlabored, wheezes Cardiovascular exam: PRESENT: tachycardia Pulses: PRESENT: normal carotid pulses Vascular exam: PRESENT: normal capillary refill GI/Abdominal exam: PRESENT: normal bowel sounds, soft. ABSENT: distended, guarding, rebound, tenderness Extremities exam: ABSENT: clubbing, pedal edema Musculoskeletal exam: PRESENT: normal inspection. ABSENT: deformity Neurological exam: PRESENT: alert, awake, oriented to person, oriented to place, oriented to situation Psychiatric exam: PRESENT: appropriate affect, normal mood Skin exam: PRESENT: dry, warm Results Laboratory Results: 02/24/19 10:15 02/25/19 05:41 02/25/19 05:41 Sodium 139.4 Potassium 4.1 Chloride 94 L Carbon Dioxide 45 H* Anion Gap 0 L BUN 24 H Creatinine 0.91 Est GFR ( Amer) > 60 Glucose 60 L Calcium 9.8 02/12/19 02/12/19 02/12/19 18:46 18:46 18:46 Creatine Kinase 64 CK-MB (CK-2) 2.93 Troponin I < 0.012 NT-Pro-B Natriuret Pep [id number] H 02/13/19 02/13/19 04:11 04:11 Creatine Kinase 50 CK-MB (CK-2) 3.58 Troponin I < 0.012 NT-Pro-B Natriuret Pep [id number] H Impressions: Chest Ultrasound 02/12/19 17:35 IMPRESSION: No pleural effusions. Renal Ultrasound 02/13/19 00:00 IMPRESSION: There are chronic appearing changes in the kidneys with no acute finding. Chest CT 02/16/19 00:00 IMPRESSION: Decreased attenuation of the bilateral upper lungs possibly related to underlying emphysema. Small right pleural effusion. Mild bibasilar atelectasis. Mild enlargement of the main pulmonary artery, a finding compatible with provided history of pulmonary arterial hypertension. Small pericardial effusion. KUB X-Ray 02/16/19 10:19 IMPRESSION: Appropriate position of nasogastric tube. Chest X-Ray 02/17/19 06:00 IMPRESSION: Increase in bibasilar infiltrate as described. Support lines and tubes remain in satisfactory position. Assessment and Plan - Diagnosis (1) Hypoxia Is this a current diagnosis for this admission?: Yes Plan: Continue oxygen supplementation to maintain SPO2 greater than 90% (2) COPD exacerbation Is this a current diagnosis for this admission?: Yes Plan: She continues prednisone and DuoNeb treatments (3) Physical deconditioning Is this a current diagnosis for this admission?: Yes Plan: This is her chief problem at this point her limiting factor. She initially went to go home with home health but I talked with her today and she acknowledges that she is not doing very well with therapy. She is agreed to go to a long term facility. (4) Severe pulmonary arterial systolic hypertension Is this a current diagnosis for this admission?: Yes Plan: Continue Revatio and supplemental O2 - Time Time Spent with patient: 15-24 minutes
[2019-02-25] MEDS: ACETAMINOPHEN 325 MG TABLET PO PRN (18:58)
[2019-02-25] MEDS: ESCITALOPRAM OXALATE 10 MG TABLET PO SCH (22:25)
[2019-02-26] MEDS: IPRATROPIUM/ALBUTEROL 0.5-2.5 MG/3 ML AMPUL NEB SCH ×4 (01:59→20:33)
[2019-02-26] MEDS: HEPARIN SOD (PORCINE) 5,000 UNIT/ML 1 ML VIAL SUBCUT SCH ×2 (05:44→13:03)
[2019-02-26] MEDS: BUDESONIDE NEB 0.5 MG/2 ML AMPUL NEB SCH ×2 (08:16→20:33)
[2019-02-26] MEDS: PREDNISONE 20 MG TABLET PO SCH (09:04)
[2019-02-26] MEDS: ALPRAZOLAM 0.25 MG TABLET PO SCH (09:04)
[2019-02-26] MEDS: SILDENAFIL CITRATE 20 MG TABLET PO SCH (09:05)
[2019-02-26] MEDS: FAMOTIDINE 20 MG TABLET PO SCH (09:05)
[2019-02-26] MEDS: CETIRIZINE 10 MG TABLET PO SCH (09:05)
[2019-02-26] MEDS: SPIRONOLACTONE 25 MG TABLET PO SCH (09:05)
[2019-02-26] MEDS: ACETAMINOPHEN 325 MG TABLET PO PRN (13:51)
--- NOTE | 2019-02-26 17:42 | PDOC PROGRESS REPORT ---
Subjective Progress Note for:: 02/26/19 Subjective:: No adverse events overnight. No new complaints. She still gets short of breath with exertion. She does not even really look very comfortable when she is at rest, but her saturations are good on the nasal cannula. Reason For Visit: RESPIRATORY DISTRESS,COPD ACUTE,EX Physical Exam Vital Signs: Temp Pulse Resp BP Pulse Ox 97.9 F 92 18 125/53 L 95 02/26/19 12:00 02/26/19 14:09 02/26/19 14:09 02/26/19 12:00 02/26/19 14:09 Intake & Output 02/25/19 02/26/19 02/27/19 06:59 06:59 06:59 Intake Total 717 610 Balance 717 610 Weight 75.3 kg 74.7 kg General appearance: PRESENT: cooperative, disheveled, mild distress, obese Respiratory exam: PRESENT: accessory muscle use, decreased breath sounds, symmetrical, tachypnea. ABSENT: chest wall tenderness, crackles, prolonged expiratory phas, rhonchi, unlabored, wheezes Cardiovascular exam: PRESENT: tachycardia Pulses: PRESENT: normal carotid pulses Vascular exam: PRESENT: normal capillary refill GI/Abdominal exam: PRESENT: normal bowel sounds, soft. ABSENT: distended, guarding, rebound, tenderness Extremities exam: ABSENT: clubbing, pedal edema Musculoskeletal exam: PRESENT: normal inspection. ABSENT: deformity Neurological exam: PRESENT: alert, awake, oriented to person, oriented to place, oriented to situation Psychiatric exam: PRESENT: appropriate affect, normal mood Skin exam: PRESENT: dry, warm Results Laboratory Results: 02/24/19 10:15 02/25/19 05:41 02/16/19 18:30 Bronchial Washings Legionella Culture - Final 02/16/19 18:30 Bronchial Washings Legionella Culture - Final 02/16/19 18:30 Bronchial Washings Legionella Culture - Final 02/16/19 18:30 Bronchial Washings Legionella Culture - Final 02/12/19 02/12/19 02/12/19 18:46 18:46 18:46 Creatine Kinase 64 CK-MB (CK-2) 2.93 Troponin I < 0.012 NT-Pro-B Natriuret Pep 61114 H 02/13/19 02/13/19 04:11 04:11 Creatine Kinase 50 CK-MB (CK-2) 3.58 Troponin I < 0.012 NT-Pro-B Natriuret Pep [id number] H Impressions: Chest Ultrasound 02/12/19 17:35 IMPRESSION: No pleural effusions. Renal Ultrasound 02/13/19 00:00 IMPRESSION: There are chronic appearing changes in the kidneys with no acute finding. Chest CT 02/16/19 00:00 IMPRESSION: Decreased attenuation of the bilateral upper lungs possibly related to underlying emphysema. Small right pleural effusion. Mild bibasilar atelectasis. Mild enlargement of the main pulmonary artery, a finding compatible with provided history of pulmonary arterial hypertension. Small pericardial effusion. KUB X-Ray 02/16/19 10:19 IMPRESSION: Appropriate position of nasogastric tube. Chest X-Ray 02/17/19 06:00 IMPRESSION: Increase in bibasilar infiltrate as described. Support lines and tubes remain in satisfactory position. Assessment and Plan - Diagnosis (1) Hypoxia Is this a current diagnosis for this admission?: Yes Plan: Continue oxygen supplementation to maintain SPO2 greater than 90% (2) COPD exacerbation Is this a current diagnosis for this admission?: Yes Plan: She continues prednisone and DuoNeb treatments (3) Physical deconditioning Is this a current diagnosis for this admission?: Yes Plan: This is her chief problem at this point her limiting factor. She initially went to go home with home health but I talked with her and she acknowledges that she is not doing very well with therapy. She is agreed to go to a assisted facility. (4) Severe pulmonary arterial systolic hypertension Is this a current diagnosis for this admission?: Yes Plan: Continue Revatio and supplemental O2 - Time Time Spent with patient: 15-24 minutes
[2019-02-26] MEDS: ALPRAZOLAM 0.5 MG TABLET PO PRN (20:06)
[2019-02-27] MEDS: HEPARIN SOD (PORCINE) 5,000 UNIT/ML 1 ML VIAL SUBCUT SCH ×4 (00:05→21:32)
[2019-02-27] MEDS: ACETAMINOPHEN 325 MG TABLET PO PRN (00:10)
[2019-02-27] MEDS: ALPRAZOLAM 0.25 MG TABLET PO SCH ×3 (00:12→21:32)
[2019-02-27] MEDS: ESCITALOPRAM OXALATE 10 MG TABLET PO SCH ×2 (00:14→21:32)
[2019-02-27] MEDS: FAMOTIDINE 20 MG TABLET PO SCH ×3 (00:14→21:32)
[2019-02-27] MEDS: IPRATROPIUM/ALBUTEROL 0.5-2.5 MG/3 ML AMPUL NEB SCH ×4 (02:01→21:25)
[2019-02-27] MEDS: BUDESONIDE NEB 0.5 MG/2 ML AMPUL NEB SCH ×2 (08:27→21:25)
[2019-02-27] MEDS: SPIRONOLACTONE 25 MG TABLET PO SCH (09:18)
[2019-02-27] MEDS: PREDNISONE 20 MG TABLET PO SCH (09:18)
[2019-02-27] MEDS: CETIRIZINE 10 MG TABLET PO SCH (09:19)
[2019-02-27] MEDS: SILDENAFIL CITRATE 20 MG TABLET PO SCH (09:19)
[2019-02-27] MEDS: ALPRAZOLAM 0.5 MG TABLET PO PRN (13:45)
--- NOTE | 2019-02-27 18:15 | PDOC PROGRESS REPORT ---
Subjective Progress Note for:: 02/27/19 Subjective:: No adverse events overnight. No new complaints. She still gets short of breath with exertion. She does not even really look very comfortable when she is at rest, but her saturations are good on the nasal cannula. When she exerts herself her respiratory rate picks up and she gets tachycardic. Reason For Visit: RESPIRATORY DISTRESS,COPD ACUTE,EX Physical Exam Vital Signs: Temp Pulse Resp BP Pulse Ox 98.5 F 105 H 18 129/62 H 95 02/27/19 15:59 02/27/19 15:59 02/27/19 15:59 02/27/19 15:59 02/27/19 15:59 Intake & Output 02/26/19 02/27/19 02/28/19 06:59 06:59 06:59 Intake Total 610 260 300 Balance 610 260 300 Weight 74.7 kg 74.9 kg General appearance: PRESENT: cooperative, disheveled, mild distress, obese Respiratory exam: PRESENT: accessory muscle use, decreased breath sounds, symmetrical, tachypnea. ABSENT: chest wall tenderness, crackles, prolonged expiratory phas, rhonchi, unlabored, wheezes Cardiovascular exam: PRESENT: tachycardia Pulses: PRESENT: normal carotid pulses Vascular exam: PRESENT: normal capillary refill GI/Abdominal exam: PRESENT: normal bowel sounds, soft. ABSENT: distended, guarding, rebound, tenderness Extremities exam: ABSENT: clubbing, pedal edema Musculoskeletal exam: PRESENT: normal inspection. ABSENT: deformity Neurological exam: PRESENT: alert, awake, oriented to person, oriented to place, oriented to situation Psychiatric exam: PRESENT: appropriate affect, normal mood Skin exam: PRESENT: dry, warm Results Laboratory Results: 02/24/19 10:15 02/25/19 05:41 02/12/19 02/12/19 02/12/19 18:46 18:46 18:46 Creatine Kinase 64 CK-MB (CK-2) 2.93 Troponin I < 0.012 NT-Pro-B Natriuret Pep [id number] H 02/13/19 02/13/19 04:11 04:11 Creatine Kinase 50 CK-MB (CK-2) 3.58 Troponin I < 0.012 NT-Pro-B Natriuret Pep [id number] H Impressions: Chest Ultrasound 02/12/19 17:35 IMPRESSION: No pleural effusions. Renal Ultrasound 02/13/19 00:00 IMPRESSION: There are chronic appearing changes in the kidneys with no acute finding. Chest CT 02/16/19 00:00 IMPRESSION: Decreased attenuation of the bilateral upper lungs possibly related to underlying emphysema. Small right pleural effusion. Mild bibasilar atelectasis. Mild enlargement of the main pulmonary artery, a finding compatible with provided history of pulmonary arterial hypertension. Small pericardial effusion. KUB X-Ray 02/16/19 10:19 IMPRESSION: Appropriate position of nasogastric tube. Chest X-Ray 02/17/19 06:00 IMPRESSION: Increase in bibasilar infiltrate as described. Support lines and tubes remain in satisfactory position. Assessment and Plan - Diagnosis (1) Hypoxia Is this a current diagnosis for this admission?: Yes Plan: Continue oxygen supplementation to maintain SPO2 greater than 90% (2) COPD exacerbation Is this a current diagnosis for this admission?: Yes Plan: She continues prednisone and DuoNeb treatments. We will plan to discontinue the prednisone after its been on for about 5 days. (3) Physical deconditioning Is this a current diagnosis for this admission?: Yes Plan: This is her chief problem at this point her limiting factor. She initially went to go home with home health but I talked with her and she acknowledges that she is not doing very well with therapy. She is agreed to go to a custodial facility. Referrals are being sent. (4) Severe pulmonary arterial systolic hypertension Is this a current diagnosis for this admission?: Yes Plan: Continue Revatio and supplemental O2 - Time Time Spent with patient: 15-24 minutes
[2019-02-28] MEDS: ALPRAZOLAM 0.5 MG TABLET PO PRN (01:42)
[2019-02-28] MEDS: IPRATROPIUM/ALBUTEROL 0.5-2.5 MG/3 ML AMPUL NEB SCH ×4 (01:59→20:54)
[2019-02-28] MEDS: HEPARIN SOD (PORCINE) 5,000 UNIT/ML 1 ML VIAL SUBCUT SCH ×3 (06:27→21:48)
[2019-02-28] MEDS: ACETAMINOPHEN 325 MG TABLET PO PRN ×2 (06:38→13:59)
[2019-02-28] MEDS: BUDESONIDE NEB 0.5 MG/2 ML AMPUL NEB SCH ×2 (08:22→20:54)
[2019-02-28] MEDS: CETIRIZINE 10 MG TABLET PO SCH (09:10)
[2019-02-28] MEDS: SPIRONOLACTONE 25 MG TABLET PO SCH (09:10)
[2019-02-28] MEDS: ALPRAZOLAM 0.25 MG TABLET PO SCH (09:10)
[2019-02-28] MEDS: PREDNISONE 20 MG TABLET PO SCH (09:10)
[2019-02-28] MEDS: SILDENAFIL CITRATE 20 MG TABLET PO SCH (09:11)
[2019-02-28] MEDS: FAMOTIDINE 20 MG TABLET PO SCH ×2 (09:11→21:48)
--- NOTE | 2019-02-28 16:55 | PDOC PROGRESS REPORT ---
Subjective Progress Note for:: 02/28/19 Subjective:: No adverse events overnight. No new complaints. Her breathing has been what is likely her new baseline. Reason For Visit: RESPIRATORY DISTRESS,COPD ACUTE,EX Physical Exam Vital Signs: Temp Pulse Resp BP Pulse Ox 97.3 F 105 H 20 115/74 99 02/28/19 07:33 02/28/19 14:30 02/28/19 14:30 02/28/19 07:33 02/28/19 14:30 Intake & Output 02/27/19 02/28/19 03/01/19 06:59 06:59 06:59 Intake Total 260 635 240 Balance 260 635 240 Weight 74.9 kg 74.6 kg General appearance: PRESENT: cooperative, disheveled, mild distress, obese Respiratory exam: PRESENT: accessory muscle use, decreased breath sounds, symmetrical, tachypnea. ABSENT: chest wall tenderness, crackles, prolonged expiratory phas, rhonchi, unlabored, wheezes Cardiovascular exam: PRESENT: tachycardia Pulses: PRESENT: normal carotid pulses Vascular exam: PRESENT: normal capillary refill GI/Abdominal exam: PRESENT: normal bowel sounds, soft. ABSENT: distended, guarding, rebound, tenderness Extremities exam: ABSENT: clubbing, pedal edema Musculoskeletal exam: PRESENT: normal inspection. ABSENT: deformity Neurological exam: PRESENT: alert, awake, oriented to person, oriented to place, oriented to situation Psychiatric exam: PRESENT: appropriate affect, normal mood Skin exam: PRESENT: dry, warm Results Laboratory Results: 02/24/19 10:15 02/25/19 05:41 02/12/19 02/12/19 02/12/19 18:46 18:46 18:46 Creatine Kinase 64 CK-MB (CK-2) 2.93 Troponin I < 0.012 NT-Pro-B Natriuret Pep [id number] H 02/13/19 02/13/19 04:11 04:11 Creatine Kinase 50 CK-MB (CK-2) 3.58 Troponin I < 0.012 NT-Pro-B Natriuret Pep [id number] H Impressions: Chest Ultrasound 02/12/19 17:35 IMPRESSION: No pleural effusions. Renal Ultrasound 02/13/19 00:00 IMPRESSION: There are chronic appearing changes in the kidneys with no acute finding. Chest CT 02/16/19 00:00 IMPRESSION: Decreased attenuation of the bilateral upper lungs possibly related to underlying emphysema. Small right pleural effusion. Mild bibasilar atelectasis. Mild enlargement of the main pulmonary artery, a finding compatible with provided history of pulmonary arterial hypertension. Small pericardial effusion. KUB X-Ray 02/16/19 10:19 IMPRESSION: Appropriate position of nasogastric tube. Chest X-Ray 02/17/19 06:00 IMPRESSION: Increase in bibasilar infiltrate as described. Support lines and tubes remain in satisfactory position. Assessment and Plan - Diagnosis (1) Hypoxia Is this a current diagnosis for this admission?: Yes Plan: Continue oxygen supplementation to maintain SPO2 greater than 90% (2) COPD exacerbation Is this a current diagnosis for this admission?: Yes Plan: Resolved, prednisone discontinued. (3) Physical deconditioning Is this a current diagnosis for this admission?: Yes Plan: This is her chief problem at this point her limiting factor. She initially went to go home with home health but I talked with her and she acknowledges that she is not doing very well with therapy. She is agreed to go to a longterm facility. Referrals are being sent. We are awaiting word from [place]. (4) Severe pulmonary arterial systolic hypertension Is this a current diagnosis for this admission?: Yes Plan: Continue Revatio and supplemental O2 - Time Time Spent with patient: 15-24 minutes
[2019-02-28] MEDS: ESCITALOPRAM OXALATE 10 MG TABLET PO SCH (21:48)
[2019-02-28] MEDS ORDERED: ALPRAZOLAM 0.25 MG TABLET PO ONE (22:00)
[2019-03-01] MEDS: IPRATROPIUM/ALBUTEROL 0.5-2.5 MG/3 ML AMPUL NEB SCH ×4 (02:14→19:53)
[2019-03-01] MEDS: HEPARIN SOD (PORCINE) 5,000 UNIT/ML 1 ML VIAL SUBCUT SCH ×3 (05:32→21:12)
[2019-03-01] MEDS: ACETAMINOPHEN 325 MG TABLET PO PRN ×2 (05:44→23:05)
[2019-03-01] MEDS: BUDESONIDE NEB 0.5 MG/2 ML AMPUL NEB SCH ×2 (08:31→19:53)
[2019-03-01] MEDS ORDERED: ALPRAZOLAM 0.5 MG TABLET PO PRN (09:17)
[2019-03-01] MEDS: SILDENAFIL CITRATE 20 MG TABLET PO SCH (09:56)
[2019-03-01] MEDS: SPIRONOLACTONE 25 MG TABLET PO SCH (09:56)
[2019-03-01] MEDS: FAMOTIDINE 20 MG TABLET PO SCH ×2 (09:57→21:16)
[2019-03-01] MEDS: CETIRIZINE 10 MG TABLET PO SCH (09:57)
[2019-03-01] MEDS: ALPRAZOLAM 0.25 MG TABLET PO SCH ×2 (09:57→21:15)
--- NOTE | 2019-03-01 16:31 | PDOC PROGRESS REPORT ---
Subjective Progress Note for:: 03/01/19 Subjective:: No adverse events overnight. No new complaints. Her breathing has been what is likely her new baseline. Even when she is laying in bed at rest she does not look completely comfortable from a breathing standpoint. Reason For Visit: RESPIRATORY DISTRESS,COPD ACUTE,EX Physical Exam Vital Signs: Temp Pulse Resp BP Pulse Ox 98.1 F 102 H 20 121/57 L 96 03/01/19 10:53 03/01/19 13:37 03/01/19 13:37 03/01/19 10:53 03/01/19 13:37 Intake & Output 02/28/19 03/01/19 03/02/19 06:59 06:59 06:59 Intake Total 635 480 480 Balance 635 480 480 Weight 74.6 kg 74.6 kg General appearance: PRESENT: cooperative, disheveled, mild distress, obese Respiratory exam: PRESENT: accessory muscle use, decreased breath sounds, symmetrical, tachypnea. ABSENT: chest wall tenderness, crackles, prolonged exp iratory phas, rhonchi, unlabored, wheezes Cardiovascular exam: PRESENT: tachycardia Pulses: PRESENT: normal carotid pulses Vascular exam: PRESENT: normal capillary refill GI/Abdominal exam: PRESENT: normal bowel sounds, soft. ABSENT: distended, guarding, rebound, tenderness Extremities exam: ABSENT: clubbing, pedal edema Musculoskeletal exam: PRESENT: normal inspection. ABSENT: deformity Neurological exam: PRESENT: alert, awake, oriented to person, oriented to place, oriented to situation Psychiatric exam: PRESENT: appropriate affect, normal mood Skin exam: PRESENT: dry, warm Results Laboratory Results: 02/24/19 10:15 02/25/19 05:41 02/12/19 02/12/19 02/12/19 18:46 18:46 18:46 Creatine Kinase 64 CK-MB (CK-2) 2.93 Troponin I < 0.012 NT-Pro-B Natriuret Pep [id number] H 02/13/19 02/13/19 04:11 04:11 Creatine Kinase 50 CK-MB (CK-2) 3.58 Troponin I < 0.012 NT-Pro-B Natriuret Pep [id number] H Impressions: Chest Ultrasound 02/12/19 17:35 IMPRESSION: No pleural effusions. Renal Ultrasound 02/13/19 00:00 IMPRESSION: There are chronic appearing changes in the kidneys with no acute finding. Chest CT 02/16/19 00:00 IMPRESSION: Decreased attenuation of the bilateral upper lungs possibly related to underlying emphysema. Small right pleural effusion. Mild bibasilar atelectasis. Mild enlargement of the main pulmonary artery, a finding compatible with provided history of pulmonary arterial hypertension. Small pericardial effusion. KUB X-Ray 02/16/19 10:19 IMPRESSION: Appropriate position of nasogastric tube. Chest X-Ray 02/17/19 06:00 IMPRESSION: Increase in bibasilar infiltrate as described. Support lines and tubes remain in satisfactory position. Assessment and Plan - Diagnosis (1) Hypoxia Is this a current diagnosis for this admission?: Yes Plan: Continue oxygen supplementation to maintain SPO2 greater than 90% (2) COPD exacerbation Is this a current diagnosis for this admission?: Yes Plan: Resolved, prednisone discontinued. (3) Physical deconditioning Is this a current diagnosis for this admission?: Yes Plan: This is her chief problem at this point her limiting factor. She initially went to go home with home health but I talked with her and she acknowledges that she is not doing very well with therapy. She is agreed [facility] to a [facility]. Referrals are being sent. We are awaiting word from [place]. (4) Severe pulmonary arterial systolic hypertension Is this a current diagnosis for this admission?: Yes Plan: Continue Revatio and supplemental O2 - Time Time Spent with patient: 15-24 minutes
[2019-03-01] MEDS: ESCITALOPRAM OXALATE 10 MG TABLET PO SCH (21:16)
[2019-03-02] MEDS: IPRATROPIUM/ALBUTEROL 0.5-2.5 MG/3 ML AMPUL NEB SCH ×4 (02:02→20:16)
[2019-03-02] MEDS: HEPARIN SOD (PORCINE) 5,000 UNIT/ML 1 ML VIAL SUBCUT SCH ×3 (05:26→21:00)
[2019-03-02] MEDS: ACETAMINOPHEN 325 MG TABLET PO PRN (07:01)
[2019-03-02] MEDS: BUDESONIDE NEB 0.5 MG/2 ML AMPUL NEB SCH ×2 (08:24→20:16)
[2019-03-02] MEDS: SPIRONOLACTONE 25 MG TABLET PO SCH (09:57)
[2019-03-02] MEDS: ALPRAZOLAM 0.25 MG TABLET PO SCH ×2 (09:57→21:01)
[2019-03-02] MEDS: CETIRIZINE 10 MG TABLET PO SCH (09:57)
[2019-03-02] MEDS: FAMOTIDINE 20 MG TABLET PO SCH ×2 (09:57→21:01)
[2019-03-02] MEDS: SILDENAFIL CITRATE 20 MG TABLET PO SCH (09:58)
--- NOTE | 2019-03-02 15:51 | PDOC PROGRESS REPORT ---
Subjective Progress Note for:: 03/02/19 Subjective:: No adverse events overnight. No new complaints. Her breathing has been what is likely her new baseline. She says she is actually feeling a little bit better today. Reason For Visit: RESPIRATORY DISTRESS,COPD ACUTE,EX Physical Exam Vital Signs: Temp Pulse Resp BP Pulse Ox 98.0 F 109 H 25 H 105/66 95 03/02/19 08:05 03/02/19 14:11 03/02/19 14:11 03/02/19 13:54 03/02/19 14:11 Intake & Output 03/01/19 03/02/19 03/03/19 06:59 06:59 06:59 Intake Total 480 720 Balance 480 720 Weight 75.1 kg General appearance: PRESENT: cooperative, disheveled, mild distress, obese Respiratory exam: PRESENT: accessory muscle use, decreased breath sounds, symmetrical, tachypnea. ABSENT: chest wall tenderness, crackles, prolonged expiratory phas, rhonchi, unlabored, wheezes Cardiovascular exam: PRESENT: tachycardia Pulses: PRESENT: normal carotid pulses Vascular exam: PRESENT: normal capillary refill GI/Abdominal exam: PRESENT: normal bowel sounds, soft. ABSENT: distended, guarding, rebound, tenderness Extremities exam: ABSENT: clubbing, pedal edema Musculoskeletal exam: PRESENT: normal inspection. ABSENT: deformity Neurological exam: PRESENT: alert, awake, oriented to person, oriented to place, oriented to situation Psychiatric exam: PRESENT: appropriate affect, normal mood Skin exam: PRESENT: dry, warm Results Laboratory Results: 02/24/19 10:15 02/25/19 05:41 02/12/19 02/12/19 02/12/19 18:46 18:46 18:46 Creatine Kinase 64 CK-MB (CK-2) 2.93 Troponin I < 0.012 NT-Pro-B Natriuret Pep [id number] H 02/13/19 02/13/19 04:11 04:11 Creatine Kinase 50 CK-MB (CK-2) 3.58 Troponin I < 0.012 NT-Pro-B Natriuret Pep [id number] H Impressions: Chest Ultrasound 02/12/19 17:35 IMPRESSION: No pleural effusions. Renal Ultrasound 02/13/19 00:00 IMPRESSION: There are chronic appearing changes in the kidneys with no acute finding. Chest CT 02/16/19 00:00 IMPRESSION: Decreased attenuation of the bilateral upper lungs possibly related to underlying emphysema. Small right pleural effusion. Mild bibasilar atelectasis. Mild enlargement of the main pulmonary artery, a finding compatible with pro vided history of pulmonary arterial hypertension. Small pericardial effusion. KUB X-Ray 02/16/19 10:19 IMPRESSION: Appropriate position of nasogastric tube. Chest X-Ray 02/17/19 06:00 IMPRESSION: Increase in bibasilar infiltrate as described. Support lines and tubes remain in satisfactory position. Assessment and Plan - Diagnosis (1) Hypoxia Is this a current diagnosis for this admission?: Yes Plan: Continue oxygen supplementation to maintain SPO2 greater than 90% (2) COPD exacerbation Is this a current diagnosis for this admission?: Yes Plan: Resolved, prednisone discontinued. (3) Physical deconditioning Is this a current diagnosis for this admission?: Yes Plan: This is her chief problem at this point her limiting factor. She initially went to go home with home health but I talked with her and she acknowledges that she is not doing very well with therapy. She is agreed to go to a retirement facility. Referrals are being sent. We are awaiting word from [place]. (4) Severe pulmonary arterial systolic hypertension Is this a current diagnosis for this admission?: Yes Plan: Continue Revatio and supplemental O2 - Time Time Spent with patient: 15-24 minutes
[2019-03-02] MEDS: ESCITALOPRAM OXALATE 10 MG TABLET PO SCH (21:01)
[2019-03-03] MEDS: IPRATROPIUM/ALBUTEROL 0.5-2.5 MG/3 ML AMPUL NEB SCH ×4 (02:05→19:28)
[2019-03-03] MEDS: HEPARIN SOD (PORCINE) 5,000 UNIT/ML 1 ML VIAL SUBCUT SCH ×3 (05:12→22:08)
[2019-03-03] MEDS: BUDESONIDE NEB 0.5 MG/2 ML AMPUL NEB SCH ×2 (07:59→19:28)
[2019-03-03] MEDS: FAMOTIDINE 20 MG TABLET PO SCH ×2 (10:20→22:09)
[2019-03-03] MEDS: ALPRAZOLAM 0.25 MG TABLET PO SCH ×2 (10:20→22:09)
[2019-03-03] MEDS: SPIRONOLACTONE 25 MG TABLET PO SCH (10:20)
[2019-03-03] MEDS: SILDENAFIL CITRATE 20 MG TABLET PO SCH (10:20)
[2019-03-03] MEDS: CETIRIZINE 10 MG TABLET PO SCH (10:24)
--- NOTE | 2019-03-03 17:11 | PDOC PROGRESS REPORT ---
Subjective Progress Note for:: 03/03/19 Subjective:: No adverse events overnight. No new complaints. Her breathing has been what is likely her new baseline. She says she is actually feeling a little bit better and has not required BiPAP at bedtime. Reason For Visit: RESPIRATORY DISTRESS,COPD ACUTE,EX Physical Exam Vital Signs: Temp Pulse Resp BP Pulse Ox 98.1 F 109 H 20 138/74 H 92 03/03/19 12:12 03/03/19 14:24 03/03/19 14:24 03/03/19 12:12 03/03/19 15:48 Intake & Output 03/02/19 03/03/19 03/04/19 06:59 06:59 06:59 Intake Total 720 637 320 Output Total 1000 Balance 720 637 -680 Weight 75.1 kg 74.5 kg General appearance: PRESENT: cooperative, disheveled, mild distress, obese Respiratory exam: PRESENT: accessory muscle use, decreased breath sounds, symmetrical, tachypnea. ABSENT: chest wall tenderness, crackles, prolonged expiratory phas, rhonchi, unlabored, wheezes Cardiovascular exam: PRESENT: tachycardia Pulses: PRESENT: normal carotid pulses Vascular exam: PRESENT: normal capillary refill GI/Abdominal exam: PRESENT: normal bowel sounds, soft. ABSENT: distended, guarding, rebound, tenderness Extremities exam: ABSENT: clubbing, pedal edema Musculoskeletal exam: PRESENT: normal inspection. ABSENT: deformity Neurological exam: PRESENT: alert, awake, oriented to person, oriented to place, oriented to situation Psychiatric exam: PRESENT: appropriate affect, normal mood Skin exam: PRESENT: dry, warm Results Laboratory Results: 02/24/19 10:15 02/25/19 05:41 02/12/19 02/12/19 02/12/19 18:46 18:46 18:46 Creatine Kinase 64 CK-MB (CK-2) 2.93 Troponin I < 0.012 NT-Pro-B Natriuret Pep [id number] H 02/13/19 02/13/19 04:11 04:11 Creatine Kinase 50 CK-MB (CK-2) 3.58 Troponin I < 0.012 NT-Pro-B Natriuret Pep 21443 H Impressions: Chest Ultrasound 02/12/19 17:35 IMPRESSION: No pleural effusions. Renal Ultrasound 02/13/19 00:00 IMPRESSION: There are chronic appearing changes in the kidneys with no acute finding. Chest CT 02/16/19 00:00 IMPRESSION: Decreased attenuation of the bilateral upper lungs possibly related to underlying emphysema. Small right pleural effusion. Mild bibasilar atelectasis. Mild enlargement of the main pulmonary artery, a finding compatible with provided history of pulmonary arterial hypertension. Small pericardial effusion. KUB X-Ray 02/16/19 10:19 IMPRESSION: Appropriate position of nasogastric tube. Chest X-Ray 02/17/19 06:00 IMPRESSION: Increase in bibasilar infiltrate as described. Support lines and tubes remain in satisfactory position. Assessment and Plan - Diagnosis (1) Hypoxia Is this a current diagnosis for this admission?: Yes Plan: Continue oxygen supplementation to maintain SPO2 greater than 90% (2) COPD exacerbation Is this a current diagnosis for this admission?: Yes Plan: Resolved, prednisone discontinued. (3) Physical deconditioning Is this a current diagnosis for this admission?: Yes Plan: This is her chief problem at this point her limiting factor. She initially went to go home with home health but I talked with her and she acknowledges that she is not doing very well with therapy. She is [facility] a [facility] facility. [facility]. (4) Severe pulmonary arterial systolic hypertension Is this a current diagnosis for this admission?: Yes Plan: Continue Revatio and supplemental O2 - Time Time Spent with patient: 15-24 minutes
[2019-03-03] MEDS: ESCITALOPRAM OXALATE 10 MG TABLET PO SCH (22:09)
[2019-03-04] MEDS: IPRATROPIUM/ALBUTEROL 0.5-2.5 MG/3 ML AMPUL NEB SCH ×4 (02:09→19:58)
[2019-03-04] MEDS: HEPARIN SOD (PORCINE) 5,000 UNIT/ML 1 ML VIAL SUBCUT SCH ×3 (06:21→21:34)
[2019-03-04] MEDS: BUDESONIDE NEB 0.5 MG/2 ML AMPUL NEB SCH ×2 (07:57→19:58)
[2019-03-04] MEDS: SPIRONOLACTONE 25 MG TABLET PO SCH (09:46)
[2019-03-04] MEDS: SILDENAFIL CITRATE 20 MG TABLET PO SCH (09:46)
[2019-03-04] MEDS: ALPRAZOLAM 0.25 MG TABLET PO SCH ×2 (09:46→21:36)
[2019-03-04] MEDS: FAMOTIDINE 20 MG TABLET PO SCH ×2 (09:46→21:36)
[2019-03-04] MEDS: CETIRIZINE 10 MG TABLET PO SCH (09:47)
--- NOTE | 2019-03-04 10:37 | PDOC PROGRESS REPORT ---
Subjective Progress Note for:: 03/04/19 Subjective:: 03/04/2019. No acute events overnight. Patient comfortably sitting in bed, using this, in no apparent distress, cooperative with physical examination, denies any fever, chills, nausea, vomiting, diarrhea, constipation or any urinary symptoms. Patient is pending transfer to SNF. Reason For Visit: RESPIRATORY DISTRESS,COPD ACUTE,EX Physical Exam Vital Signs: Temp Pulse Resp BP Pulse Ox 98.1 F 104 H 26 H 137/81 H 99 03/04/19 07:51 03/04/19 08:00 03/04/19 08:00 03/04/19 07:51 03/04/19 08:00 Intake & Output 03/03/19 03/04/19 03/05/19 06:59 06:59 06:59 Intake Total 637 320 Output Total 1000 Balance 637 -680 Weight 74.5 kg 74.5 kg General appearance: PRESENT: no acute distress, well-developed, well-nourished Head exam: PRESENT: atraumatic, normocephalic Respiratory exam: PRESENT: clear to auscultation bianca. ABSENT: rales, rhonchi, wheezes Cardiovascular exam: PRESENT: RRR. ABSENT: diastolic murmur, rubs, systolic murmur GI/Abdominal exam: PRESENT: normal bowel sounds, soft. ABSENT: distended, guarding, mass, organolmegaly, rebound, tenderness Extremities exam: PRESENT: full ROM. ABSENT: calf tenderness, clubbing, pedal edema Neurological exam: PRESENT: alert, awake, oriented to person, oriented to place, oriented to time, oriented to situation, CN II-XII grossly intact. ABSENT: motor sensory deficit Results Laboratory Results: 02/24/19 10:15 02/25/19 05:41 02/12/19 02/12/19 02/12/19 18:46 18:46 18:46 Creatine Kinase 64 CK-MB (CK-2) 2.93 Troponin I < 0.012 NT-Pro-B Natriuret Pep [id number] H 02/13/19 02/13/19 04:11 04:11 Creatine Kinase 50 CK-MB (CK-2) 3.58 Troponin I < 0.012 NT-Pro-B Natriuret Pep 27994 H Impressions: Chest Ultrasound 02/12/19 17:35 IMPRESSION: No pleural effusions. Renal Ultrasound 02/13/19 00:00 IMPRESSION: There are chronic appearing changes in the kidneys with no acute finding. Chest CT 02/16/19 00:00 IMPRESSION: Decreased attenuation of the bilateral upper lungs possibly related to underlying emphysema. Small right pleural effusion. Mild bibasilar atelectasis. Mild enlargement of the main pulmonary artery, a finding compatible with provided history of pulmonary arterial hypertension. Small pericardial effusion. KUB X-Ray 02/16/19 10:19 IMPRESSION: Appropriate position of nasogastric tube. Chest X-Ray 02/17/19 06:00 IMPRESSION: Increase in bibasilar infiltrate as described. Support lines and tubes remain in satisfactory position. Assessment and Plan - Diagnosis (1) Acute hypercapnic respiratory failure Is this a current diagnosis for this admission?: Yes Plan: Improving. SPO2 99%, FiO2 36%, OFR 4 L/min, RR 1826. Continue DuoNeb's every 6 hours. Sildenafil 20 mg daily, Pulmicort every 12 hours. Pending transfer to SNF. (2) COPD exacerbation Is this a current diagnosis for this admission?: Yes Plan: No wheezing on chest examination. Resolved, prednisone discontinued. Continue DuoNeb's every 6 hours, Pulmicort every 12 hours. (3) Physical deconditioning Is this a current diagnosis for this admission?: Yes Plan: Pending transfer to SNF pending insurance authorization Continue patient PT OT. (4) Severe pulmonary arterial systolic hypertension Is this a current diagnosis for this admission?: Yes Plan: Continue Revatio and supplemental O2
[2019-03-04] MEDS: ACETAMINOPHEN 325 MG TABLET PO PRN (13:51)
[2019-03-04] MEDS: ESCITALOPRAM OXALATE 10 MG TABLET PO SCH (21:36)
[2019-03-05] MEDS: IPRATROPIUM/ALBUTEROL 0.5-2.5 MG/3 ML AMPUL NEB SCH ×4 (02:13→20:11)
[2019-03-05] MEDS: HEPARIN SOD (PORCINE) 5,000 UNIT/ML 1 ML VIAL SUBCUT SCH ×2 (06:30→14:52)
[2019-03-05] MEDS: BUDESONIDE NEB 0.5 MG/2 ML AMPUL NEB SCH ×2 (08:03→20:11)
[2019-03-05 08:19] LABS: ALBUMIN 3.5 g/dL (3.5-5.0); ALKALINE PHOSPHATASE 57 U/L (38-126); ASPARTATE AMINO TRANSFERASE 31 U/L (14-36); BILIRUBIN,DIRECT 0.2 mg/dL (0.0-0.4); BILIRUBIN,TOTAL 0.7 mg/dL (0.2-1.3); BLOOD UREA NITROGEN 18 mg/dL (7-20); CALCIUM 9.5 mg/dL (8.4-10.2); CHLORIDE 96 mmol/L (98-107); GLUCOSE 91 mg/dL (75-110); POTASSIUM 4.5 mmol/L (3.6-5.0); TOTAL PROTEIN 6.1 g/dL (6.3-8.2)
[2019-03-05 08:20] LABS: ABSOLUTE EOSINOPHILS # (AUTO) 0.1 10^3/uL (0.0-0.6); ABSOLUTE LYMPHOCYTES (AUTO) 0.4 10^3/uL (0.5-4.7); ABSOLUTE MONOCYTES (AUTO) 0.5 10^3/uL (0.1-1.4); ABSOLUTE NEUT (AUTO) 5.2 10^3/uL (1.7-8.2); BASOPHILS % (AUTO) 0.5 % (0-2); EOSINOPHILS % (AUTO) 1.3 % (0-6); HEMATOCRIT 26.9 % (36.0-47.0); HEMOGLOBIN 8.7 g/dL (12.0-15.5); LYMPHOCYTES % (AUTO) 6.8 % (13-45); MEAN CORPUSCULAR HEMOGLOBIN 32.4 pg (27.0-33.4); MEAN CORPUSCULAR HGB CONC 32.4 g/dL (32.0-36.0); MEAN CORPUSCULAR VOLUME 100 fl (80-97); MONOCYTES % (AUTO) 8.5 % (3-13); PLATELET COUNT 137 10^3/uL (150-450); RED BLOOD COUNT 2.69 10^6/uL (3.72-5.28); RED CELL DISTRIBUTION WIDTH 15.7 % (11.5-14.0); SEGMENTED NEUTROPHILS % (AUTO) 82.9 % (42-78); TOTAL CELLS COUNTED % (AUTO) 100 %; WHITE BLOOD COUNT 6.3 10^3/uL (4.0-10.5)
[2019-03-05 08:29] LABS: ANION GAP 5 (5-19)
[2019-03-05 08:30] LABS: CARBON DIOXIDE 41 mmol/L (22-30)
--- NOTE | 2019-03-05 08:46 | PDOC TRANSFER SUMMARY ---
General Admission Date/PCP: 02/12/19 21:53 KAMRON SINGER Resuscitation Status: Full Code - Transfer Diagnosis (1) Acute hypercapnic respiratory failure Is this a current diagnosis for this admission?: Yes (2) COPD exacerbation Is this a current diagnosis for this admission?: Yes (3) Physical deconditioning Is this a current diagnosis for this admission?: Yes (4) Severe pulmonary arterial systolic hypertension Is this a current diagnosis for this admission?: Yes - Transfer Medications Home Medications: Alprazolam [Xanax 0.25 mg Tablet] 0.25 mg PO Q12 02/12/19 Buspirone HCl [Buspar 15 mg Tablet] 7.5 mg PO Q12 02/12/19 Cetirizine HCl [Zyrtec 10 mg Tablet] 10 mg PO DAILY 02/12/19 Escitalopram Oxalate [Lexapro 10 mg Tablet] 10 mg PO QHS 02/12/19 Levalbuterol HCl [Levalbuterol Concentrate] 1.25 mg NEB Q8HP PRN 02/12/19 Metoprolol Succinate [Toprol XL 100 mg Tablet] 100 mg PO DAILY 02/12/19 Potassium Chloride [Klor-Con 10 Meq Capsule ER] 10 meq PO Q2D 02/12/19 Spironolactone [Aldactone 25 mg Tablet] 12.5 mg PO DAILY 02/12/19 Transfer Medications: Current Medications Acetaminophen (Tylenol 325 Mg Tablet) 650 mg PO Q4HP PRN PRN Reason: PAIN Stop: 03/27/19 18:08 Last Admin: 03/04/19 13:51 Dose: 650 mg Documented by: Albuterol/Ipratropium (Duoneb 3 Ml Ampul) 3 ml NEB RTQ6 KENNY Stop: 03/15/19 19:59 Last Admin: 03/05/19 08:03 Dose: 3 ml Documented by: Alprazolam (Xanax 0.25 Mg Tablet) 0.25 mg PO Q12 KENNY Stop: 03/08/19 09:59 Last Admin: 03/04/19 21:36 Dose: 0.25 mg Documented by: Alprazolam (Xanax 0.5 Mg Tablet) 0.5 mg PO Q8HP PRN PRN Reason: ANXIETY Stop: 03/08/19 09:16 Budesonide (Pulmicort Neb 0.5 Mg/2 Ml Ampul) 0.5 mg NEB RTQ12 [facility] Stop: 03/15/19 07:59 Last Admin: 03/05/19 08:03 Dose: 0.5 mg Documented by: Cetirizine HCl (Zyrtec 10 Mg Tablet) 10 mg PO DAILY KENNY Stop: 03/15/19 09:59 Last Admin: 03/04/19 09:47 Dose: 10 mg Documented by: Escitalopram Oxalate (Lexapro 10 Mg Tablet) 10 mg PO QHS KENNY Stop: 03/15/19 21:59 Last Admin: 03/04/19 21:36 Dose: 10 mg Documented by: Famotidine (Pepcid 20 Mg Tablet) 20 mg PO Q12 KENNY Stop: 03/18/19 09:59 Last Admin: 03/04/19 21:36 Dose: 20 mg Documented by: Heparin Sodium (Porcine) (Heparin Inj 5,000 Units/Ml 1 Ml Vial) 5,000 unit SUBCUT Q8 KENNY Stop: 03/14/19 21:59 Last Admin: 03/05/19 06:30 Dose: Not Given Documented by: Metoprolol Succinate (Toprol Xl 50 Mg Tab.Sr) 50 mg PO DAILY [facility] Stop: 04/04/19 09:59 Multi-Ingredient Cream (Lacri-Lube S.O.P. Ointment 3.5 Gm) 1 applic OU Q6HP PRN PRN Reason: DRY EYE(S) Stop: 03/18/19 07:46 Last Admin: 02/18/19 17:46 Dose: 1 applic Documented by: Sildenafil Citrate (Revatio 20 Mg Tablet) 20 mg PO DAILY [facility] Stop: 03/19/19 11:59 Last Admin: 03/04/19 09:46 Dose: 20 mg Documented by: Spironolactone (Aldactone 25 Mg Tablet) 12.5 mg PO DAILY [facility] Stop: 03/19/19 09:59 Last Admin: 03/04/19 09:46 Dose: 12.5 mg Documented by: - Allergies Allergies/Adverse Reactions: No Known Allergies Allergy (Verified 01/18/18 18:24) - Diet/Activity Discharge Diet: Cardiac Hospital Course Hospital Course: 63-year-old female past medical history of CHF, GARY, hypertension, pulmonary hypertension, CKD, who was admitted on 618 was admitted on 02/13/2019 acute hypoxic and hypercapnic respiratory failure, COPD exacerbation, CHF exacer bation, acute renal failure. Patient was initially admitted to IMCU and subsequently transferred to ICU where he reports she was intubated. While in ICU cardiology was consulted and recommendation was aggressive primary toileting COPD management and starting patient on sildenafil for severe pulmonary hypertension. She also had her immunologic tests done including rheumatoid factor, REYNALDO, c-ANCA, p-ANCA, myeloperoxidase, SSA/Ro, SSB/LA, SHE[employer]OCK T[employer]ER HELPER antibody, double-stranded DNA antibody, and complement levels. All test negative except for positive antinuclear antibody and low C2 and C3 levels. As per admitting physicians note case was discussed with Dr. Moore manual training teacher but unfortunately he was not consulted. Patient had improvement of her symptoms and downgraded on 02/22/2019 to telemetry. Still dependent on supplemental oxygen with profound physical deconditioning due to the fact patient was deemed appropriate for transfer to the temporal rehab for her physical deconditioning. (1) Acute hypercapnic respiratory failure Improving, still having significant hypercarbia. Patient likely a chronic CO2 retainer due to underlying GARY/obesity hypoventilation syndrome. SPO2 99%, FiO2 36%, OFR 4 L/min, RR 1826. Continue DuoNeb's every 6 hours, Pulmicort every 12 hours. Patient has a home CPAP which she can use nocturnally. She also needs to follow-up with pulmonology/passenger rate clerk for management and work-up for her underlying severe hypercarbic respiratory failure/GARY/obesity hypoventilation syndrome and positive test result for antinuclear antibodies. (2) COPD exacerbation No wheezing on chest examination. Resolved, prednisone discontinued. Continue DuoNeb's every 6 hours, Pulmicort every 12 hours. (3) Physical deconditioning Mostly due to severe underlying multiple comorbidities and recent acute illness. See PT OT while inpatient, active rehab recommended. Continue patient PT OT. (4) Severe pulmonary arterial systolic hypertension Continue Revatio and supplemental O2. Please follow-up with manual training teacher as outpatient. Physical Exam Vital Signs: Temp Pulse Resp BP Pulse Ox 97.6 F 112 H 20 114/56 L 97 03/05/19 00:00 03/05/19 08:03 03/05/19 08:03 03/05/19 00:00 03/05/19 08:03 Intake & Output 1003/05/19 03/06/19 06:59 06:59 06:59 Intake Total 320 932 Output Total 1000 Balance -680 932 Weight 74.5 kg 76.4 kg General appearance: PRESENT: mild distress Head exam: PRESENT: atraumatic, normocephalic Respiratory exam: PRESENT: clear to auscultation bianca, decreased breath sounds. ABSENT: rales, rhonchi, wheezes GI/Abdominal exam: PRESENT: normal bowel sounds, soft. ABSENT: distended, guarding, mass, organolmegaly, rebound, tenderness Neurological exam: PRESENT: alert, awake, oriented to person, oriented to place, oriented to time, oriented to situation, CN II-XII grossly intact. ABSENT: motor sensory deficit Results Laboratory Results: 03/05/19 06:45 03/05/19 06:45 03/05/19 03/05/19 06:45 06:45 WBC 6.3 RBC 2.69 L Hgb 8.7 L Hct 26.9 L MCV 100 H MCH 32.4 MCHC 32.4 RDW 15.7 H Plt Count 137 L Seg Neutrophils % 82.9 H Sodium 141.9 Potassium 4.5 Chloride 96 L Carbon Dioxide 41 H* Anion Gap 5 BUN 18 Creatinine 0.77 Est GFR ( Amer) > 60 Glucose 91 Calcium 9.5 Magnesium 2.0 Total Bilirubin 0.7 AST 31 Alkaline Phosphatase 57 Total Protein 6.1 L Albumin 3.5 02/12/19 02/12/19 02/12/19 18:46 18:46 18:46 Creatine Kinase 64 CK-MB (CK-2) 2.93 Troponin I < 0.012 NT-Pro-B Natriuret Pep 44878 H 02/13/19 02/13/19 04:11 04:11 Creatine Kinase 50 CK-MB (CK-2) 3.58 Troponin I < 0.012 NT-Pro-B Natriuret Pep 29522 H Impressions: Chest Ultrasound 02/12/19 17:35 IMPRESSION: No pleural effusions. Renal Ultrasound 02/13/19 00:00 IMPRESSION: There are chronic appearing changes in the kidneys with no acute finding. Chest CT 02/16/19 00:00 IMPRESSION: Decreased attenuation of the bilateral upper lungs possibly related to underlying emphysema. Small right pleural effusion. Mild bibasilar atelectasis. Mild enlargement of the main pulmonary artery, a finding compatible with provided history of pulmonary arterial hypertension. Small pericardial effusion. KUB X-Ray 02/16/19 10:19 IMPRESSION: Appropriate position of nasogastric tube. Chest X-Ray 02/17/19 06:00 IMPRESSION: Increase in bibasilar infiltrate as described. Support lines and tubes remain in satisfactory position.
[2019-03-05] MEDS ORDERED: METOPROLOL SUCCINATE 50 MG TAB.SR.24H PO SCH (10:00)
[2019-03-05] MEDS: CETIRIZINE 10 MG TABLET PO SCH (12:06)
[2019-03-05] MEDS: ALPRAZOLAM 0.25 MG TABLET PO SCH (12:06)
[2019-03-05] MEDS: FAMOTIDINE 20 MG TABLET PO SCH (12:06)
[2019-03-05] MEDS: SPIRONOLACTONE 25 MG TABLET PO SCH (12:07)
[2019-03-05] MEDS: SILDENAFIL CITRATE 20 MG TABLET PO SCH (12:08)
[2019-03-05 16:16] VITALS: BP 110/61
[2019-03-05] MEDS ORDERED: INFLUENZA QUAD (6MOS+) 2019-20 VAC 0.5 ML SYR IM ONE (17:51)
[2019-03-06] MEDS ORDERED: FUROSEMIDE 20 MG TABLET PO SCH (10:00)
== END 2019-03-05 20:11 | DRG 208 ==
LOC: ER 17:15 → EH 21:53 → 3N 02-13 01:12 → ICU 02-13 11:14 → 4S 02-22 15:42
PROVIDERS: ADMIT Internal Medicine Critical Care Medicine; ATTEND Internal Medicine Critical Care Medicine
PROC: 5A09357 Assistance with Respiratory Ventilation, Less than 24 Consecutive Hours, Continuous Positive Airway Pressure (ICD-10-PCS; 2019-02-12)
PROC: 5A1945Z Respiratory Ventilation, 24-96 Consecutive Hours (ICD-10-PCS; principal; 2019-02-16)
PROC: 0BH17EZ Insertion of Endotracheal Airway into Trachea, Via Natural or Artificial Opening (ICD-10-PCS; 2019-02-16)
PROC: 0B9D7ZX Drainage of Right Middle Lung Lobe, Via Natural or Artificial Opening, Diagnostic (ICD-10-PCS; 2019-02-16)
PROC: 03HY32Z Insertion of Monitoring Device into Upper Artery, Percutaneous Approach (ICD-10-PCS; 2019-02-16)
PROC: 3E02340 Introduction of Influenza Vaccine into Muscle, Percutaneous Approach (ICD-10-PCS; 2019-03-05)
DX: J96.22 Acute and chronic respiratory failure with hypercapnia (principal); G93.41 Metabolic encephalopathy; J44.1 Chronic obstructive pulmonary disease with (acute) exacerbation; N17.9 Acute kidney failure, unspecified; I13.0 Hypertensive heart and chronic kidney disease with heart failure and stage 1 through stage 4 chronic kidney disease, or unspecified chronic kidney disease; I50.32 Chronic diastolic (congestive) heart failure; I27.23 Pulmonary hypertension due to lung diseases and hypoxia; I50.813 Acute on chronic right heart failure; Z99.81 Dependence on supplemental oxygen; J96.21 Acute and chronic respiratory failure with hypoxia; G47.33 Obstructive sleep apnea (adult) (pediatric); E66.9 Obesity, unspecified; F32.9 Major depressive disorder, single episode, unspecified; F41.1 Generalized anxiety disorder; N18.2 Chronic kidney disease, stage 2 (mild); E87.5 Hyperkalemia; Z23 Encounter for immunization; Z87.891 Personal history of nicotine dependence; Z83.6 Family history of other diseases of the respiratory system; Z82.49 Family history of ischemic heart disease and other diseases of the circulatory system; Z91.19 Patient's noncompliance with other medical treatment and regimen
CPT/HCPCS: 36415; 36600; 71045; 71250; 74018; 76604; 76770; 80048; 80053; 80076; 80307; 81001; 81332; 82140; 82550; 82553; 82570; 82803; 82962; 83020; 83036; 83516; 83520; 83605; 83735; 83880; 84100; 84133; 84156; 84300; 84439; 84443; 84478; 84484; 85025; 85027; 85379; 85597; 85598; 85610; 85613; 85652; 85730; 85732; 86038; 86141; 86146; 86147; 86148; 86160; 86162; 86225; 86235; 86256; 86331; 86430; 86602; 86606; 86671; 86849; 87015; 87040; 87070; 87086; 87101; 87116; 87205; 87206; 87486; 87804; 89050; 90686; 93005; 93010; 93306; 93970; 94002; 94003; 94150; 94640; 94660; 96365; 96366; 96372; 99291; A4649; B4155; C1887; C1894; J0456; J0692; J0696; J1630; J1644; J1940; J1956; J2260; J2704; J2920; J2930; J3010; J3475; J3490; J7030; J7050; J7060; J7512; J7620; S0028

== ENCOUNTER 2019-03-09 18:13 | Inpatient (IN) | payer BC ==
[2019-03-09] MEDS ORDERED: PROPOFOL 1,000 MG/100 ML INFUS..BTL IV PRN (18:48)
[2019-03-09] MEDS ORDERED: IPRATROPIUM/ALBUTEROL 0.5-2.5 MG/3 ML AMPUL NEB ONE (18:59)
[2019-03-09] MEDS ORDERED: CEFEPIME 2 GM/D5W RTU 2 GM/50 ML RTUPB IV ONE (19:00)
[2019-03-09] MEDS ORDERED: METHYLPREDNISOLONE INJ 125 MG/2 ML SDV IV ONE (19:16)
--- NOTE | 2019-03-09 19:30 | ER Document Report ---
ED Respiratory Problem - General Stated Complaint: ANXIETY Time Seen by Provider: 03/09/19 18:32 Notes: Patient is a 63-year-old female with a history of COPD who presents the emergency department with shortness of breath. Patient stated that she was short of breath when I initially assessed her. Patient is a resident at [place] and according to her son who is at bedside, the patient was not quite acting herself yesterday. Today the skilled nursing sent her in for an evaluation of anxiety. When I entered the room, the patient appeared as though she was having respiratory distress. She was in the psychiatric area of the emergency department and was immediately brought over to the main side of the emergency department. At that time, the patient was becoming lethargic and when she was connected to the monitor, I noticed her heart rate in the 40s. She was i mmediately bagged by the Ambu bag and her heart rate went up. Patient was recently discharged from the hospital. She was intubated at that time. She was also on BiPAP. TRAVEL OUTSIDE OF THE [place] IN LAST 30 DAYS: No - Related Data Allergies/Adverse Reactions: No Known Allergies Allergy (Verified 01/18/18 18:24) Past Medical History - General Information source: Patient, Relative - Social History Smoking Status: Unknown if Ever Smoked Family History: None, COPD, DM, Hypertension, Malignancy. denies: Arthritis, CAD, CVA, Hyperlipidemia, Thyroid Disfunction - Past Medical History Cardiac Medical History: Reports: Hx Congestive Heart Failure, Hx Hypertension Pulmonary Medical History: Reports: Hx Bronchitis, Hx COPD, Hx Respiratory Failure Renal/ Medical History: Denies: Hx Peritoneal Dialysis Psychiatric Medical History: Reports: Hx Depression Past Surgical History: Reports: Hx Hysterectomy - Immunizations Hx Diphtheria, Pertussis, Tetanus Vaccination: Yes Review of Systems - Review of Systems -: Yes ROS unobtainable due to patient's medical condition Physical Exam - Vital signs Vitals: Resp Pulse Ox 28 H 71 L 03/09/19 18:43 03/09/19 18:43 - Notes Notes: PHYSICAL EXAMINATION: GENERAL: Appears in acute distress. HEAD: Normocephalic, atraumatic. EYES: PERRL, conjunctiva normal, all extraocular movements intact, sclera nonicteric ENT: Dry mucous membranes. NECK: Supple, no noticeable swelling, redness, rash. Normal range of motion. LUNGS: Diminished breath sounds throughout. Clear respiratory distress. CARDIOVASCULAR: S1-S2, regular rate, regular rhythm. Radial pulses 2+, normal. ABDOMEN: Normoactive bowel sounds. Soft, nontender, no guarding, no rebound tenderness, and no masses palpated. EXTREMITIES: Normal strength and range of motion, no pitting or edema. No cyanosis. NEUROLOGICAL: Moves all extremities upon command. Strength 5/5 in all extremities. PSYCH: Normal mood, normal affect. SKIN: Warm, dry. No rash, lesions, ulcerations noted. Normal skin turgor. Course - Re-evaluation Re-evalutation: 03/09/19 18:45 My initial assessment of the patient was in the mental health portion of the emergency department. Patient was sitting up in clear respiratory distress. I asked her if she was him having a hard time breathing and she shook her head yes. She was making multiple attempts to get up, but the nurse, myself, and the patient's son had convinced her to get back in bed. We lifted her and placed her back in the bed. I subsequently spoke with the charge nurse and the patient was immediately brought over to the main side of the emergency department. When I then again assessed her, the patient was connected to the monitor and the patient's respiratory rate had decreased and her mental status had also decreased. I saw her heart rate dropped to the 40s and oxygen saturation in the 60s to 70s. I called for an Ambu bag. The patient was then given respirations via bag valve mask. Both Dr. Garrison and Dr. Kerr came to bedside. Dr. Kerr intubated the patient. Respiratory was at bedside and the patient was placed on the ventilator. Her oxygen saturation was better. Orders were placed in the chart by myself. I consulted with Dr. Garrison in regards to the patient's ventilator settings. 03/09/19 20:16 Patient's ABG shows hypercapnic she is hypercapnic. I suspect that her CO2 must have been higher before she was intubated. Chemistries show an acute kidney injury. Her potassium is 5.7 and she received DuoNeb treatments which will hopefully bring this down. Urinalysis is unremarkable. Awaiting CBC results, chest x-ray, CT of the head. 03/09/19 20:24 Patient is biting the tube and she needs to go to CT. She will receive 10 mg of vecuronium IV at this time. 03/09/19 21:28 CBC shows that the patient is anemic with a hemoglobin of 8.5 and hematocrit of 26.8. She does not meet transfusion threshold. White blood cell count is within normal range. She does have a left shift with her neutrophils although the patient does not have a leukocytosis, she does have a left shift. CT of the head is negative. Chest x-ray shows pneumonia. I spoke with the ICU in tensivist and the patient will be admitted to the ICU. - Vital Signs Vital signs: Temp Pulse Resp BP Pulse Ox 16 113/68 100 03/09/19 22:21 03/09/19 22:21 03/10/19 00:13 - Laboratory Result Diagrams: 03/09/19 20:00 03/09/19 18:56 Laboratory results interpreted by me: 03/09/19 03/09/19 03/09/19 18:56 18:56 19:13 RBC Hgb Hct MCV MCH MCHC RDW Seg Neuts % (Manual) Lymphocytes % (Manual) Carbonic Acid ABG pCO2 ABG pO2 ABG HCO3 ABG Total CO2 ABG O2 Saturation Sodium 147.7 H Potassium 5.7 H Carbon Dioxide 31 H BUN 42 H Creatinine 1.59 H Est GFR ( Amer) 40 L Est GFR (MDRD) Non-Af 33 L Glucose 113 H AST 67 H CK-MB (CK-2) 5.90 H NT-Pro-B Natriuret Pep [id number] H Urine Protein 100 H 03/09/19 03/09/19 19:57 20:00 RBC 2.53 L Hgb 8.5 L Hct 26.8 L MCV 106 H D MCH 33.5 H MCHC 31.6 L RDW 17.0 H Seg Neuts % (Manual) 85 H Lymphocytes % (Manual) 6 L Carbonic Acid 1.94 H ABG pCO2 64.3 H ABG pO2 58.1 L ABG HCO3 37.0 H ABG Total CO2 39.0 H ABG O2 Saturation 88.7 L Sodium Potassium Carbon Dioxide BUN Creatinine Est GFR ( Amer) Est GFR (MDRD) Non-Af Glucose AST CK-MB (CK-2) NT-Pro-B Natriuret Pep Urine Protein Critical Care Note - Critical Care Note Comments: Critical care time spent obtaining history from patient or surrogate, discussions with consultants, development of treatment plan with patient or surrogate, evaluation of patient's response to treatment, examination of patient, ordering and performing treatments and interventions, ordering and review of laboratory studies, re-evaluation of patient's condition, ordering and review of radiographic studies and review of old charts Discharge - Discharge Clinical Impression: COPD exacerbation, Acute metabolic encephalopathy, Respiratory distress CHF (congestive heart failure) Qualifiers: Heart failure type: unspecified Heart failure chronicity: unspecified Qualified Code(s): I50.9 - Heart failure, unspecified Pneumonia Qualifiers: Pneumonia type: due to unspecified organism Laterality: unspecified laterality Lung location: unspecified part of lung Qualified Code(s): J18.9 - Pneumonia, unspecified organism Condition: Critical Disposition: ADMITTED INPATIENT Admitting Provider: Dr. Gross Unit Admitted: ICU
[2019-03-09] MEDS ORDERED: FENTANYL CITRATE INJ/PF 100 MCG/2 ML AMPUL ONE (19:36)
[2019-03-09] MEDS ORDERED: FENTANYL CITRATE INJ/PF 100 MCG/2 ML AMPUL IV ONE (19:40)
[2019-03-09 19:41] LABS: ALBUMIN 4.1 g/dL (3.5-5.0); ALKALINE PHOSPHATASE 67 U/L (38-126); ANION GAP 17 (5-19); ASPARTATE AMINO TRANSFERASE 67 U/L (14-36); BILIRUBIN,DIRECT 0.4 mg/dL (0.0-0.4); BILIRUBIN,TOTAL 0.8 mg/dL (0.2-1.3); BLOOD UREA NITROGEN 42 mg/dL (7-20); CALCIUM 9.9 mg/dL (8.4-10.2); CARBON DIOXIDE 31 mmol/L (22-30); CHLORIDE 100 mmol/L (98-107); CREATINE KINASE 52 U/L (30-135); GLUCOSE 113 mg/dL (75-110); POTASSIUM 5.7 mmol/L (3.6-5.0); TOTAL PROTEIN 6.9 g/dL (6.3-8.2)
[2019-03-09] MEDS ORDERED: ETOMIDATE INJ/PF 20 MG/10 ML SDV IV ONE (19:44)
[2019-03-09] MEDS ORDERED: ROCURONIUM BROMIDE INJ 50 MG/5 ML VIAL IV ONE (19:45)
[2019-03-09] MEDS ORDERED: MIDAZOLAM 2 MG/2 ML INJ IV ONE (19:53)
[2019-03-09 20:00] LABS: APPEARANCE,URINE CLOUDY; BILIRUBIN,URINE NEGATIVE (NEGATIVE); COLOR,URINE YELLOW; GLUCOSE, URINE NEGATIVE (NEGATIVE); KETONES,URINE NEGATIVE (NEGATIVE); PROTEIN,URINE 100 mg/dL (NEGATIVE); URINE SPECIFIC GRAVITY 1.017; UROBILINOGEN,URINE NEGATIVE mg/dL (<2.0)
[2019-03-09 20:06] LABS: URINE AMPHETAMINES SCREEN NEGATIVE; URINE BARBITURATES SCREEN NEGATIVE; URINE BENZODIAZEPINES SCREEN UNCONFIRMED POSITIVE; URINE COCAINE SCREEN NEGATIVE; URINE MARIJUANA (THC) SCREEN NEGATIVE; URINE METHADONE SCREEN NEGATIVE; URINE PHENCYCLIDINE SCREEN NEGATIVE
[2019-03-09 20:07] LABS: ARTERIAL BLOOD BASE EXCESS 10.3 mmol/L; ARTERIAL BLOOD H2CO3 1.94 mmol/L (1.05-1.35); ARTERIAL BLOOD O2 SATURATION 88.7 % (94-98); ARTERIAL BLOOD PCO2 64.3 mmHg (35-45); ARTERIAL BLOOD PH 7.38 (7.35-7.45); ARTERIAL BLOOD PO2 58.1 mmHg (80-100)
[2019-03-09 20:08] LABS: ARTERIAL BLOOD FIO2 40%
[2019-03-09 20:10] LABS: NT PRO BNP 17500 pg/mL (<125); TROPONIN I < 0.012 ng/mL
[2019-03-09 20:21] LABS: HEMATOCRIT 26.8 % (36.0-47.0); HEMOGLOBIN 8.5 g/dL (12.0-15.5); MEAN CORPUSCULAR HEMOGLOBIN 33.5 pg (27.0-33.4); MEAN CORPUSCULAR HGB CONC 31.6 g/dL (32.0-36.0); PLATELET COUNT 184 10^3/uL (150-450); RED BLOOD COUNT 2.53 10^6/uL (3.72-5.28); WHITE BLOOD COUNT 8.2 10^3/uL (4.0-10.5)
[2019-03-09] MEDS ORDERED: VECURONIUM BROMIDE INJ 10 MG VIAL IV ONE ×2 (20:23→20:24)
[2019-03-09 20:24] LABS: MEAN CORPUSCULAR VOLUME 106 fl (80-97)
--- NOTE | 2019-03-09 20:31 | RADIOLOGY REPORT (SQ) ---
EXAM DESCRIPTION: XR CHEST 1 VIEW COMPLETED DATE/TME: 03/09/2019 18:56 CLINICAL HISTORY: difficulty breathing COMPARISON: February 17, 2019 FINDINGS: Cardiac silhouette is within normal limits. There is an endotracheal tube with the tip ending approximately 4 cm above the level of the patricia. There is a NG tube which courses subdiaphragmatically. EKG leads project over the chest. There is no confluent airspace disease. There is no acute osseous process visualized. Tubular opacities at the right lower lung could be secondary to bronchial wall thickening of unknown age. IMPRESSION: Tubular opacities at the right lower lung could be secondary to bronchial wall thickening of unknown age.
[2019-03-09 21:00] LABS: ABSOLUTE LYMPHOCYTES# (MANUAL) 0.5 10^3/uL (0.5-4.7); ABSOLUTE MONOCYTES # (MANUAL) 0.4 10^3/uL (0.1-1.4); ANISOCYTOSIS 1+; BAND NEUTROPHILS % (MANUAL) 4 % (3-5); BASOPHILS % (MANUAL) 0 % (0-2); EOSINOPHILS % (MANUAL) 0 % (0-6); LYMPHOCYTES % (MANUAL) 6 % (13-45); MONOCYTES % (MANUAL) 5 % (3-13); NUCLEATED RED BLOOD CELLS 2 /100 WBC (0); POLYCHROMASIA 1+; SEGMENTED NEUTROPHILS % (MAN) 85 % (42-78); TOTAL CELLS COUNTED 100
[2019-03-09 21:01] LABS: PLATELET COMMENT ADEQUATE
--- NOTE | 2019-03-09 21:20 | RADIOLOGY REPORT (SQ) ---
EXAM DESCRIPTION: CT HEAD WITHOUT IV CONTRAST COMPLETED DATE/TME: 03/09/2019 19:17 CLINICAL HISTORY: AMS COMPARISON: None Available. TECHNIQUE: Contiguous axial images of the brain were obtained without the administration of intravenous contrast.This exam was performed according to our departmental dose-optimization program, which includes automated exposure control, adjustment of the mA and/or kV according to patient size and/or use of iterative reconstruction technique. FINDINGS: There is no acute intracranial hemorrhage or mass effect. Areas of low attenuation in the periventricular and subcortical white matter are nonspecific but suggestive of small vessel disease. Ventricular system is within normal limits. There is adequate biswas-white matter differentiation. There is no skull fracture. The visualized paranasal sinuses and mastoid air cells are within normal limits. IMPRESSION: No acute intracranial abnormalities.
[2019-03-09] MEDS ORDERED: VANCOMYCIN HCL INJ 1000 MG VIAL IV ONE (21:28)
--- NOTE | 2019-03-09 21:36 | EKG REPORT ---
SEVERITY:- ABNORMAL ECG - SINUS RHYTHM LEFT ATRIAL ABNORMALITY RIGHT AXIS DEVIATION BORDERLINE T ABNORMALITIES, INFERIOR LEADS : Confirmed by: Neftaly Barrett MD 09-Mar-2019 21:36:05
[2019-03-09] MEDS ORDERED: DEXTROSE 50%-WATER 25 GM/50 ML DISP.SYRIN IV PRN ×2 (23:04)
[2019-03-09] MEDS ORDERED: ONDANSETRON HCL INJ/PF 4 MG/2 ML SDV IV PRN (23:04)
[2019-03-09] MEDS ORDERED: DEXTROSE 40% GEL 15 GM TUBE PO PRN ×2 (23:04)
[2019-03-09] MEDS ORDERED: LEVALBUTEROL HCL NEB 0.63 MG/3 ML AMPUL NEB ONE (23:04)
[2019-03-09] MEDS ORDERED: GLUCAGON,HUMAN RECOMB 1 MG INJ SUBCUT PRN (23:04)
[2019-03-09] MEDS ORDERED: LABETALOL HCL INJ 20 MG/4 ML DISP.SYRIN IV PRN (23:12)
[2019-03-09] MEDS ORDERED: HYDRALAZINE HCL INJ/PF 20 MG/1 ML SDV IV PRN (23:12)
[2019-03-09] MEDS ORDERED: ACETAMINOPHEN 650 MG SUPP.RECT PR PRN (23:12)
[2019-03-09] MEDS ORDERED: VANCOMYCIN HCL INJ 1000 MG VIAL IV SCH (23:15)
[2019-03-09] MEDS: IPRATROPIUM BROMIDE 0.02% NEB 0.5 MG/2.5 ML AMPUL NEB SCH (23:28)
[2019-03-09] MEDS: LEVALBUTEROL HCL NEB 1.25 MG/3 ML AMPUL NEB SCH (23:29)
[2019-03-09] MEDS: MIDAZOLAM HCL 50 MG/100 ML RTUINJ IV PRN (23:38)
--- NOTE | 2019-03-10 00:55 | PDOC H&P ---
History of Present Illness Admission Date/PCP: 03/09/19 22:26 MAN ESPINOZA MD Patient complains of: Dyspnea History of Present Illness: CECILE VICK is a 63 year old female who presented to the emergency room with a 1 day history of dyspnea. Her increased dyspnea began yesterday and gradually worsened to become severe today. She admitted her dyspnea was worsened by activity or exertion and had been accompanied by orthopnea. She denied other associated or accompanying signs and symptoms. She acknowledged numerous prior similar episodes and was recently hospitalized for dyspnea. She had not identified any additional aggravating or ameliorating factors for her dyspnea. In the emergency room she was found to be severely dyspneic and was treated aggressively with BiPAP and then subsequently she required endotracheal intubation to obtain adequate oxygenation and to relieve her extreme work of breathing. She was subsequently admitted to the ICU for further evaluation and treatment. Past Medical History Cardiac Medical History: Reports: Congestive Heart Failure, Hypertension Denies: Atrial Fibrillation, Coronary Artery Disease, DVT, Myocardial Infarction, Pulmonary Embolism Pulmonary Medical History: Reports: Bronchitis, Chronic Obstructive Pulmonary Disease (COPD), Respiratory Failure, Other EENT Medical History: Denies: Cataracts, Ears Neurological Medical History: Denies: Hemorrhagic CVA, Ischemic CVA, Seizures Endocrine Medical History: Denies: Diabetes Mellitus Type 1, Diabetes Mellitus Type 2, Hyperthyroidism, Hypothyroidism, Obesity Renal/ Medical History: Denies: Chronic Kidney Disease, Nephrolithiasis Malignancy Medical History: Reports: None GI Medical History: Denies: Cirrhosis, Crohn's Disease, Hepatitis, Ulcerative Colitis Musculoskeltal Medical History: Denies: Arthritis, Fibromyalgia, Gout Skin Medical History: Denies: Eczema, Psoriasis Psychiatric Medical History: Reports: Depression Denies: Alcohol Dependency, Substance Abuse, Tobacco Dependency Traumatic Medical History: Reports: None Hematology: Denies: Anemia, Sickle Cell Disease, Bleeding Tendencies Infectious Medical History: Reports: None Past Surgical History Past Surgical History: Reports: Hysterectomy Social History Information Source: [facility] Records Lives with: Alf - Premier Smoking Status: Former Smoker Electronic Cigarette use?: No Frequency of Alcohol Use: None Hx Recreational Drug Use: No Drugs: None Hx Prescription Drug Abuse: No - Advance Directive Resuscitation Status: Full Code Surrogate healthcare decision maker:: Ritesh Vick Family History Family History: COPD, DM, Hypertension, Malignancy. denies: Arthritis, CAD, CVA, Hyperlipidemia, Thyroid Disfunction Parental Family History Reviewed: Yes Children Family History Reviewed: No Sibling(s) Family History Reviewed.: Yes Medication/Allergy Home Medications: Alprazolam [Xanax 0.25 mg Tablet] 0.25 mg PO Q12 02/12/19 Buspirone HCl [Buspar 15 mg Tablet] 7.5 mg PO Q12 02/12/19 Cetirizine HCl [Zyrtec 10 mg Tablet] 10 mg PO DAILY 02/12/19 Escitalopram Oxalate [Lexapro 10 mg Tablet] 10 mg PO QHS 02/12/19 Levalbuterol HCl [Levalbuterol Concentrate] 1.25 mg NEB Q8HP PRN 02/12/19 Metoprolol Succinate [Toprol XL 100 mg Tablet] 100 mg PO DAILY 02/12/19 Potassium Chloride [Klor-Con 10 Meq Capsule ER] 10 meq PO Q2D 02/12/19 Spironolactone [Aldactone 25 mg Tablet] 12.5 mg PO DAILY 02/12/19 Alprazolam [Xanax 0.5 mg Tablet] 0.5 mg PO Q8HP PRN 2 Days #6 tablet 03/05/19 Sildenafil Citrate [Revatio 20 mg Tablet] 20 mg PO DAILY tablet 03/05/19 Allergies/Adverse Reactions: No Known Allergies Allergy (Verified 01/18/18 18:24) Review of Systems ROS unobtainable: Due to endotracheal tube Physical Exam Vital Signs: Temp Pulse Resp BP Pulse Ox 16 113/68 100 03/09/19 22:21 03/09/19 22:21 03/09/19 19:28 Intake & Output 03/07/19 03/08/19 03/09/19 23:59 23:59 22:59 Intake Total 70 Balance 70 Weight 76.4 kg General appearance: PRESENT: no acute distress, well-developed, other - Patient is endotracheally intubated and on a ventilator at the time of my evaluation Eye exam: PRESENT: conjunctiva pink. ABSENT: conjunctival injection, scleral icterus Ear exam: PRESENT: normal external ear exam. ABSENT: bleeding, drainage Mouth exam: PRESENT: dry mucosa, neck supple Neck exam: PRESENT: JVD. ABSENT: thyromegaly, tracheal deviation Respiratory exam: PRESENT: prolonged expiratory phas - Minimally prolonged expiratory phase, rales - Fine bibasilar rales, symmetrical, other - Endotracheally intubated and ventilated at the time of my evaluation. ABSENT: wheezes Pulses: PRESENT: normal carotid pulses, normal radial pulses Vascular exam: PRESENT: normal capillary refill. ABSENT: pallor GI/Abdominal exam: PRESENT: normal bowel sounds, soft Rectal exam: PRESENT: deferred Extremities exam: PRESENT: pedal edema, +2 edema - 2+ bilateral pretibial pitting edema Musculoskeletal exam: ABSENT: deformity, dislocation Neurological exam: PRESENT: altered - Sedated for intubation, other - Endotracheally intubated and on a ventilator at the time of my evaluation Psychiatric exam: PRESENT: other - Endotracheally intubated and mechanically ventilated at the time of my evaluation Skin exam: PRESENT: dry, intact, warm. ABSENT: jaundice, rash, urticaria Results Laboratory Results: 03/09/19 20:00 03/09/19 18:56 03/09/19 03/09/19 03/09/19 18:56 18:56 19:13 WBC Cancelled RBC Cancelled Hgb Cancelled Hct Cancelled MCV Cancelled MCH Cancelled MCHC Cancelled RDW Cancelled Plt Count Cancelled Seg Neutrophils % Cancelled Carbonic Acid HCO3/H2CO3 Ratio ABG pH ABG pCO2 ABG pO2 ABG HCO3 ABG O2 Saturation ABG Base Excess FiO2 Sodium 147.7 H Potassium 5.7 H Chloride 100 Carbon Dioxide 31 H Anion Gap 17 BUN 42 H Creatinine 1.59 H Est GFR ( Amer) 40 L Glucose 113 H Calcium 9.9 Total Bilirubin 0.8 AST 67 H Alkaline Phosphatase 67 Total Protein 6.9 Albumin 4.1 Urine Color YELLOW Urine Appearance CLOUDY Urine pH 5.0 Ur Specific [place] 1.017 Urine Protein 100 H Urine Glucose (UA) NEGATIVE Urine Ketones NEGATIVE Urine Blood NEGATIVE 03/09/19 03/09/19 19:57 20:00 WBC 8.2 RBC 2.53 L Hgb 8.5 L Hct 26.8 L MCV 106 H D MCH 33.5 H MCHC 31.6 L RDW 17.0 H Plt Count 184 Seg Neutrophils % Not Reportable Carbonic Acid 1.94 H HCO3/H2CO3 Ratio 19:1 ABG pH 7.38 ABG pCO2 64.3 H ABG pO2 58.1 L ABG HCO3 37.0 H ABG O2 Saturation 88.7 L ABG Base Excess 10.3 FiO2 40% Sodium Potassium Chloride Carbon Dioxide Anion Gap BUN Creatinine Est GFR ( Amer) Glucose Calcium Total Bilirubin AST Alkaline Phosphatase Total Protein Albumin Urine Color Urine Appearance Urine pH Ur Specific [place] Urine Protein Urine Glucose (UA) Urine Ketones Urine Blood 03/09/19 03/09/19 18:56 18:56 Creatine Kinase 52 CK-MB (CK-2) 5.90 H Troponin I < 0.012 NT-Pro-B Natriuret Pep 52468 H Impressions: Chest X-Ray 03/09/19 18:56 IMPRESSION: Tubular opacities at the right lower lung could be secondary to bronchial wall thickening of unknown age. Head CT 03/09/19 19:17 IMPRESSION: No acute intracranial abnormalities. Assessment and Plan - Diagnosis (1) Acute on chronic congestive heart failure Qualifiers: Heart failure type: right-sided Qualified Code(s): I50.813 - Acute on chronic right heart failure Is this a current diagnosis for this admission?: Yes (2) Acute respiratory failure with hypoxia and hypercapnia Is this a current diagnosis for this admission?: Yes (3) COPD (chronic obstructive pulmonary disease) Qualifiers: COPD type: unspecified COPD Qualified Code(s): J44.9 - Chronic obstructive pulmonary disease, unspecified Is this a current diagnosis for this admission?: Yes (4) Chronic kidney disease, stage 3 (moderate) Is this a current diagnosis for this admission?: Yes (5) Elevated brain natriuretic peptide (BNP) level Is this a current diagnosis for this admission?: Yes - Plan Summary Summary: Patient is admitted to the ICU and will be continued on endotracheal intubation with mechanical ventilation. I have adjusted her respiratory settings to increase her inspiratory volume to 550 mL, increase her respiratory rate 18, increase her PEEP to 8 and I have decreased her FiO2 which I will continue to w char throughout the evening to maintain an O2 sat of 90 to 94%. She will be continued on medazepam IV as an infusion for comfort while being intubated and mechanically ventilated. She may also be treated with propofol as required for the same medication. Her heart failure will be treated with Bumex 1 mg IV every 6 hours initially and further treatment will be administered as determined by the radiographer mammographer when they take over care of the morning. A CBC, comprehensive metabolic profile, magnesium level and ABG are ordered for the morning. A chest x-ray is also ordered for the morning. The patient was started on antibiotic therapy for a healthcare acquired pneumonia in the emergency room. This was continued after admission pending blood culture results. - Time Time Spent with patient: 25-34 minutes Medications reviewed and adjusted accordingly: No - Unable to take oral medicines due to endotracheal intubation - Inpatient Certification Based on my medical assessment, after consideration of the patient's comorbidities, presenting symptoms, or acuity I expect that the services needed warrant INPATIENT care.: Yes I certify that my determination is in accordance with my understanding of Medicare's requirements for reasonable and necessary INPATIENT services [42 CFR 412.3e].: Yes Medical Necessity: Significant Comorbidiites Make Outpatient Treatment Too Risky, Need Close Monitoring Due to Risk of Patient Decompensation, Need For IV Fluids, Need For Continuous Telemetry Monitoring, Risk of Complication if Not Cared For in Hospital, Risk of Diagnosis Which Will Require Inpatient Eval/Care/Monitoring
[2019-03-10 01:22] LABS: ARTERIAL BLOOD BASE EXCESS 8.5 mmol/L; ARTERIAL BLOOD H2CO3 0.94 mmol/L (1.05-1.35); ARTERIAL BLOOD HCO3 30.3 mmol/L (20-24); ARTERIAL BLOOD O2 SATURATION 91.9 % (94-98); ARTERIAL BLOOD PCO2 31.1 mmHg (35-45); ARTERIAL BLOOD PO2 50.9 mmHg (80-100); ARTERIAL BLOOD TOTAL CO2 31.2 mmol/L (21-25)
[2019-03-10 01:24] LABS: ARTERIAL BLOOD FIO2 25%; ARTERIAL BLOOD PH 7.61 (7.35-7.45)
[2019-03-10] MEDS: PROPOFOL 1,000 MG/100 ML INFUS..BTL IV PRN ×3 (01:57→22:29)
[2019-03-10 02:01] LABS: CREATINE KINASE MB 3.46 ng/mL (<4.55)
[2019-03-10 02:12] LABS: TROPONIN I < 0.012 ng/mL
[2019-03-10] MEDS: BUMETANIDE INJ/PF 1 MG/4 ML SDV IV SCH ×4 (02:25→20:01)
[2019-03-10] MEDS: HEPARIN SOD (PORCINE) 5,000 UNIT/ML 1 ML VIAL SUBCUT SCH ×3 (05:27→21:19)
[2019-03-10] MEDS ORDERED: CEFEPIME 2 GM/D5W RTU 2 GM/50 ML RTUPB IV ONE (05:39)
[2019-03-10] MEDS: CEFEPIME 2 GM/D5W RTU 2 GM/50 ML RTUPB IV SCH ×2 (06:05→18:00)
[2019-03-10] MEDS: RINGERS SOLUTION,LACTATED 1,000 ML IV PRN ×2 (06:06→16:22)
[2019-03-10 06:40] LABS: ARTERIAL BLOOD BASE EXCESS 15.4 mmol/L; ARTERIAL BLOOD H2CO3 1.24 mmol/L (1.05-1.35); ARTERIAL BLOOD HCO3 38.6 mmol/L (20-24); ARTERIAL BLOOD O2 SATURATION 89.6 % (94-98); ARTERIAL BLOOD PCO2 41.2 mmHg (35-45); ARTERIAL BLOOD PH 7.59 (7.35-7.45); ARTERIAL BLOOD PO2 48.3 mmHg (80-100); ARTERIAL BLOOD TOTAL CO2 39.8 mmol/L (21-25)
[2019-03-10 06:41] LABS: ARTERIAL BLOOD FIO2 25%
[2019-03-10] MEDS ORDERED: ACETAMINOPHEN 650 MG SUPP.RECT PR PRN (07:35)
[2019-03-10 07:52] LABS: HEMOGLOBIN 9.1 g/dL (12.0-15.5); MEAN CORPUSCULAR HEMOGLOBIN 32.7 pg (27.0-33.4); MEAN CORPUSCULAR HGB CONC 31.5 g/dL (32.0-36.0); MEAN CORPUSCULAR VOLUME 104 fl (80-97); PLATELET COUNT 251 10^3/uL (150-450); RED BLOOD COUNT 2.79 10^6/uL (3.72-5.28); RED CELL DISTRIBUTION WIDTH 16.8 % (11.5-14.0); WHITE BLOOD COUNT 9.2 10^3/uL (4.0-10.5)
[2019-03-10] MEDS ORDERED: ONDANSETRON HCL INJ/PF 4 MG/2 ML SDV IV PRN (08:00)
[2019-03-10 08:12] LABS: ALBUMIN 4.1 g/dL (3.5-5.0); ALKALINE PHOSPHATASE 83 U/L (38-126); ASPARTATE AMINO TRANSFERASE 44 U/L (14-36); BILIRUBIN,DIRECT 0.3 mg/dL (0.0-0.4); BILIRUBIN,TOTAL 1.2 mg/dL (0.2-1.3); BLOOD UREA NITROGEN 38 mg/dL (7-20); CALCIUM 10.3 mg/dL (8.4-10.2); CHLORIDE 93 mmol/L (98-107); CREATINE KINASE 33 U/L (30-135); GLUCOSE 117 mg/dL (75-110); TOTAL PROTEIN 6.9 g/dL (6.3-8.2)
[2019-03-10] MEDS: BUDESONIDE NEB 0.5 MG/2 ML AMPUL NEB SCH ×2 (08:14→20:31)
[2019-03-10] MEDS: LEVALBUTEROL HCL NEB 1.25 MG/3 ML AMPUL NEB SCH ×2 (08:14→16:19)
[2019-03-10] MEDS: IPRATROPIUM BROMIDE 0.02% NEB 0.5 MG/2.5 ML AMPUL NEB SCH ×2 (08:14→16:19)
[2019-03-10 08:20] LABS: ANION GAP 11 (5-19); CARBON DIOXIDE 38 mmol/L (22-30)
[2019-03-10 08:30] LABS: CREATINE KINASE MB 2.5 ng/mL (<4.55); TROPONIN I 0.013 ng/mL
[2019-03-10 08:32] LABS: POTASSIUM 4.2 mmol/L (3.6-5.0)
--- NOTE | 2019-03-10 08:46 | PDOC PROGRESS REPORT ---
Subjective Subjective:: Sedated Reason For Visit: ACUTE RESPIRATORY FAILURE WITH HYPOXIA AND Physical Exam Vital Signs: Temp Pulse Resp BP Pulse Ox 99.5 F 92 12 126/64 H 99 03/10/19 08:00 03/10/19 08:16 03/10/19 08:16 03/10/19 08:00 03/10/19 08:16 Intake & Output 03/09/19 03/10/19 03/11/19 06:59 06:59 06:59 Intake Total 237 Output Total 1060 350 Balance -823 -350 Weight 77.4 kg General appearance: PRESENT: no acute distress Additional Comments: Sedated on ventilator Eye exam: PRESENT: PERRLA Additional comments: Eyes slightly disconjugate. Ear exam: PRESENT: normal external ear exam Mouth exam: PRESENT: moist, tongue midline Additional comments: NG and ETT present Additional comments: No obvious JVD. Respiratory exam: PRESENT: decreased breath sounds Additional comments: Coarse Cardiovascular exam: PRESENT: RRR. ABSENT: diastolic murmur, rubs, systolic murmur Pulses: PRESENT: normal dorsalis pedis pul, +2 pedal pulses bilateral GI/Abdominal exam: PRESENT: normal bowel sounds, soft. ABSENT: distended, guarding, mass, organolmegaly, rebound, tenderness Rectal exam: PRESENT: deferred Extremities exam: PRESENT: full ROM Musculoskeletal exam: PRESENT: normal inspection Additional comments: Sedated Results Laboratory Results: 03/10/19 07:30 03/10/19 07:30 03/09/19 03/09/19 03/09/19 18:56 18:56 19:13 WBC Cancelled RBC Cancelled Hgb Cancelled Hct Cancelled MCV Cancelled MCH Cancelled MCHC Cancelled RDW Cancelled Plt Count Cancelled Seg Neutrophils % Cancelled Carbonic Acid HCO3/H2CO3 Ratio ABG pH ABG pCO2 ABG pO2 ABG HCO3 ABG O2 Saturation ABG Base Excess FiO2 Sodium 147.7 H Potassium 5.7 H Chloride 100 Carbon Dioxide 31 H Anion Gap 17 BUN 42 H Creatinine 1.59 H Est GFR ( Amer) 40 L Glucose 113 H Calcium 9.9 Magnesium Total Bilirubin 0.8 AST 67 H Alkaline Phosphatase 67 Total Protein 6.9 Albumin 4.1 Urine Color YELLOW Urine Appearance CLOUDY Urine pH 5.0 Ur Specific [place] 1.017 Urine Protein 100 H Urine Glucose (UA) NEGATIVE Urine Ketones NEGATIVE Urine Blood NEGATIVE 11/03/19 11/03/19 11/04/19 19:57 20:00 01:05 WBC 8.2 RBC 2.53 L Hgb 8.5 L Hct 26.8 L MCV 106 H D MCH 33.5 H MCHC 31.6 L RDW 17.0 H Plt Count 184 Seg Neutrophils % Not Reportable Carbonic Acid 1.94 H 0.94 L HCO3/H2CO3 Ratio 19:1 32:1 ABG pH 7.38 7.61 H* ABG pCO2 64.3 H 31.1 L ABG pO2 58.1 L 50.9 L ABG HCO3 37.0 H 30.3 H ABG O2 Saturation 88.7 L 91.9 L ABG Base Excess 10.3 8.5 FiO2 40% 25% Sodium Potassium Chloride Carbon Dioxide Anion Gap BUN Creatinine Est GFR ( Amer) Glucose Calcium Magnesium Total Bilirubin AST Alkaline Phosphatase Total Protein Albumin Urine Color Urine Appearance Urine pH Ur Specific [place] Urine Protein Urine Glucose (UA) Urine Ketones Urine Blood 03/10/19 03/10/19 03/10/19 06:20 07:30 07:30 WBC 9.2 RBC 2.79 L Hgb 9.1 L Hct 29.0 L MCV 104 H MCH 32.7 MCHC 31.5 L RDW 16.8 H Plt Count 251 Seg Neutrophils % Carbonic Acid 1.24 HCO3/H2CO3 Ratio 31:1 ABG pH 7.59 H ABG pCO2 41.2 ABG pO2 48.3 L ABG HCO3 38.6 H ABG O2 Saturation 89.6 L ABG Base Excess 15.4 FiO2 25% Sodium 141.6 Potassium 4.2 D Chloride 93 L Carbon Dioxide 38 H Anion Gap 11 BUN 38 H Creatinine 1.67 H Est GFR ( Amer) 38 L Glucose 117 H Calcium 10.3 H Magnesium 1.7 Total Bilirubin 1.2 AST 44 H Alkaline Phosphatase 83 Total Protein 6.9 Albumin 4.1 Urine Color Urine Appearance Urine pH Ur Specific [place] Urine Protein Urine Glucose (UA) Urine Ketones Urine Blood 03/09/19 03/09/19 03/10/19 18:56 18:56 01:08 Creatine Kinase 52 34 CK-MB (CK-2) 5.90 H Troponin I < 0.012 NT-Pro-B Natriuret Pep 69701 H 1103/10/19 03/10/19 01:08 07:30 07:30 Creatine Kinase 33 CK-MB (CK-2) 3.46 2.50 Troponin I < 0.012 0.013 NT-Pro-B Natriuret Pep Impressions: Head CT 03/09/19 19:17 IMPRESSION: No acute intracranial abnormalities. Assessment & Plan - Diagnosis (1) Acute on chronic congestive heart failure Qualifiers: Heart failure type: right-sided Qualified Code(s): I50.813 - Acute on chronic right heart failure Is this a current diagnosis for this admission?: Yes Plan: She has severe pulmonary artery hypertension and her CXR can look deceptively clear despite being in chronic failure. Continue bumex and add sildenifil. (2) Acute respiratory failure with hypoxia and hypercapnia Is this a current diagnosis for this admission?: Yes Plan: For now she will need ventilator support. Hope to start weaning tomorrow. (3) COPD (chronic obstructive pulmonary disease) Qualifiers: COPD type: unspecified COPD Qualified Code(s): J44.9 - Chronic obstructive pulmonary disease, unspecified Is this a current diagnosis for this admission?: Yes Plan: No wheezing but is likely playing a role. (4) Chronic kidney disease, stage 3 (moderate) Is this a current diagnosis for this admission?: Yes Plan: Cr 1.67 and GFR 31. May worsen - Time Time Spent with patient: 35 or more minutes Total Critical Time (Minutes): 35 Level of Care: ICU Medications reviewed and adjusted accordingly: Yes Anticipated discharge: SNF Within: Other - Inpatient Certification Based on my medical assessment, after consideration of the patient's comorbidities, presenting symptoms, or acuity I expect that the services needed warrant INPATIENT care.: Yes I certify that my determination is in accordance with my understanding of Medicare's requirements for reasonable and necessary INPATIENT services [42 CFR 412.3e].: Yes Medical Necessity: Failure to Improve With Outpatient Therapy, Significant Comorbidiites Make Outpatient Treatment Too Risky, Need Close Monitoring Due to Risk of Patient Decompensation, Need For Continuous Telemetry Monitoring, Need for Nebulizer Therapy and Monitoring of Response, Risk of Complication if Not Cared For in Hospital
[2019-03-10] MEDS ORDERED: PANTOPRAZOLE SODIUM 40 MG VIAL IV SCH (10:00)
[2019-03-10] MEDS ORDERED: VANCOMYCIN HCL 1,000 MG in DEXTROSE 5%-WATER 250 ML IV SCH (10:00)
[2019-03-10] MEDS: PANTOPRAZOLE SODIUM 40 MG VIAL IV SCH (10:32)
--- NOTE | 2019-03-10 10:57 | RADIOLOGY REPORT (SQ) ---
EXAM DESCRIPTION: CHEST SINGLE VIEW COMPLETED DATE/TIME: 03/10/2019 6:54 am REASON FOR STUDY: Endotracheally intubated COMPARISON: 03/09/2019 NUMBER OF VIEWS: One view. TECHNIQUE: Single frontal radiographic image of the chest acquired. LIMITATIONS: None. FINDINGS: LUNGS AND PLEURA: Stable appearance. MEDIASTINUM AND HILAR STRUCTURES: Stable heart size and mediastinal structures. HEART AND VASCULAR STRUCTURES: Stable appearance. SUPPORT DEVICES: Appropriate location without change. BONES: No acute findings. OTHER: No other significant finding. IMPRESSION: STABLE APPEARANCE OF THE CHEST. SUPPORT DEVICES UNCHANGED. TECHNICAL DOCUMENTATION: JOB ID: [id number] [employer]- All Rights Reserved Reading location - IP/workstation name: [email or web address]
[2019-03-10 14:58] LABS: CREATINE KINASE MB 1.43 ng/mL (<4.55); TROPONIN I 0.017 ng/mL
[2019-03-10] MEDS: MIDAZOLAM HCL 50 MG/100 ML RTUINJ IV PRN (15:33)
[2019-03-10 17:58] LABS: A TYPE INFLUENZA AG NEGATIVE (NEGATIVE); B INFLUENZA AG NEGATIVE (NEGATIVE)
[2019-03-11] MEDS: IPRATROPIUM BROMIDE 0.02% NEB 0.5 MG/2.5 ML AMPUL NEB SCH ×3 (00:40→16:27)
[2019-03-11] MEDS: LEVALBUTEROL HCL NEB 1.25 MG/3 ML AMPUL NEB SCH ×3 (00:40→16:27)
[2019-03-11] MEDS: RINGERS SOLUTION,LACTATED 1,000 ML IV PRN ×2 (01:50→13:35)
[2019-03-11] MEDS: BUMETANIDE INJ/PF 1 MG/4 ML SDV IV SCH (02:12)
[2019-03-11 04:31] LABS: HEMATOCRIT 29.1 % (36.0-47.0); HEMOGLOBIN 9.4 g/dL (12.0-15.5); MEAN CORPUSCULAR HEMOGLOBIN 32.1 pg (27.0-33.4); MEAN CORPUSCULAR HGB CONC 32.2 g/dL (32.0-36.0); PLATELET COUNT 268 10^3/uL (150-450); RED BLOOD COUNT 2.92 10^6/uL (3.72-5.28); RED CELL DISTRIBUTION WIDTH 17.7 % (11.5-14.0); WHITE BLOOD COUNT 11.8 10^3/uL (4.0-10.5)
[2019-03-11 04:32] LABS: MEAN CORPUSCULAR VOLUME 99 fl (80-97)
[2019-03-11 05:33] LABS: ALKALINE PHOSPHATASE 71 U/L (38-126); ASPARTATE AMINO TRANSFERASE 36 U/L (14-36); BILIRUBIN,DIRECT 0.3 mg/dL (0.0-0.4); BILIRUBIN,TOTAL 1.1 mg/dL (0.2-1.3); BLOOD UREA NITROGEN 34 mg/dL (7-20); CALCIUM 10.2 mg/dL (8.4-10.2); CHLORIDE 90 mmol/L (98-107); GLUCOSE 94 mg/dL (75-110); POTASSIUM 4.1 mmol/L (3.6-5.0)
[2019-03-11] MEDS: CEFEPIME 2 GM/D5W RTU 2 GM/50 ML RTUPB IV SCH (05:42)
[2019-03-11] MEDS: HEPARIN SOD (PORCINE) 5,000 UNIT/ML 1 ML VIAL SUBCUT SCH ×3 (05:43→21:07)
[2019-03-11 06:00] LABS: ANION GAP 9 (5-19)
[2019-03-11 06:02] LABS: CARBON DIOXIDE 42 mmol/L (22-30)
[2019-03-11] MEDS: PROPOFOL 1,000 MG/100 ML INFUS..BTL IV PRN ×3 (06:14→19:20)
--- NOTE | 2019-03-11 08:27 | PDOC PROGRESS REPORT ---
Subjective Progress Note for:: 03/11/19 Subjective:: Sedated. Reason For Visit: ACUTE RESPIRATORY FAILURE WITH HYPOXIA AND Physical Exam Vital Signs: Temp Pulse Resp BP Pulse Ox 98.4 F 90 12 98/64 L 97 03/11/19 06:00 03/11/19 07:35 03/11/19 06:00 03/11/19 05:12 03/11/19 03:33 Intake & Output 03/10/19 03/11/19 03/12/19 06:59 06:59 06:59 Intake Total 287 2672 29 Output Total 1060 5010 Balance -783 -2617 29 Weight 77.4 kg 73.9 kg General appearance: PRESENT: no acute distress Head exam: PRESENT: atraumatic, normocephalic Eye exam: PRESENT: PERRLA Ear exam: PRESENT: normal external ear exam Mouth exam: PRESENT: moist, tongue midline Neck exam: PRESENT: full ROM. ABSENT: carotid bruit, JVD, lymphadenopathy, thyromegaly Additional comments: No JVD. Respiratory exam: PRESENT: clear to auscultation bianca, decreased breath sounds, unlabored Cardiovascular exam: PRESENT: RRR. ABSENT: diastolic murmur, rubs, systolic murmur Vascular exam: PRESENT: normal capillary refill GI/Abdominal exam: PRESENT: normal bowel sounds, soft. ABSENT: distended, guarding, mass, organolmegaly, rebound, tenderness Rectal exam: PRESENT: deferred Gentrourinary exam: PRESENT: indwelling catheter Extremities exam: PRESENT: full ROM Musculoskeletal exam: PRESENT: normal inspection Additional comments: Sedated with diprivan on ventilator. Skin exam: PRESENT: dry, intact, warm. ABSENT: cyanosis, rash Results Laboratory Results: 03/11/19 03:50 03/11/19 03:50 03/10/19 03/10/19 03/11/19 07:30 07:30 03:50 WBC 11.8 H RBC 2.92 L Hgb 9.4 L Hct 29.1 L MCV 99 H D MCH 32.1 MCHC 32.2 RDW 17.7 H Plt Count 268 Sodium 141.6 Potassium 4.2 D Chloride 93 L Carbon Dioxide 38 H Anion Gap 11 BUN 38 H Creatinine 1.67 H Est GFR ( Amer) 38 L Glucose 117 H Calcium 10.3 H Magnesium 1.7 Total Bilirubin 1.2 AST 44 H Alkaline Phosphatase 83 Total Protein 6.9 Albumin 4.1 Triglycerides 149 03/11/19 03:50 WBC RBC Hgb Hct MCV MCH MCHC RDW Plt Count Sodium 141.3 Potassium 4.1 Chloride 90 L Carbon Dioxide 42 H* Anion Gap 9 BUN 34 H Creatinine 2.16 H Est GFR ( Amer) 28 L Glucose 94 Calcium 10.2 Magnesium 1.6 Total Bilirubin 1.1 AST 36 Alkaline Phosphatase 71 Total Protein 7.0 Albumin 4.0 Triglycerides 03/09/19 03/09/19 03/10/19 18:56 18:56 01:08 Creatine Kinase 52 34 CK-MB (CK-2) 5.90 H Troponin I < 0.012 NT-Pro-B Natriuret Pep 94772 H 03/10/19 03/10/19 03/10/19 01:08 07:30 07:30 Creatine Kinase 33 CK-MB (CK-2) 3.46 2.50 Troponin I < 0.012 0.013 NT-Pro-B Natriuret Pep 03/10/19 03/10/19 14:13 14:13 Creatine Kinase 39 CK-MB (CK-2) 1.43 Troponin I 0.017 NT-Pro-B Natriuret Pep Impressions: Head CT 03/09/19 19:17 IMPRESSION: No acute intracranial abnormalities. Chest X-Ray 03/10/19 01:00 IMPRESSION: STABLE APPEARANCE OF THE CHEST. SUPPORT DEVICES UNCHANGED. Assessment & Plan - Diagnosis (1) Acute on chronic congestive heart failure Qualifiers: Heart failure type: right-sided Qualified Code(s): I50.813 - Acute on chronic right heart failure Is this a current diagnosis for this admission?: Yes Plan: No clinical evidence, no JVD. However it is mostly R sided with high PA pressures. (2) Acute respiratory failure with hypoxia and hypercapnia Is this a current diagnosis for this admission?: Yes Plan: She is 100% saturated on 30% FIO2. Start weaning process. (3) COPD (chronic obstructive pulmonary disease) Qualifiers: COPD type: unspecified COPD Qualified Code(s): J44.9 - Chronic obstructive pulmonary disease, unspecified Is this a current diagnosis for this admission?: Yes Plan: No wheezing. Not active. (4) Chronic kidney disease, stage 3 (moderate) Is this a current diagnosis for this admission?: Yes Plan: Cr up to 2.16. Back off on diuretics. - Time Time Spent with patient: 35 or more minutes Total Critical Time (Minutes): 35 Level of Care: ICU Medications reviewed and adjusted accordingly: Yes Anticipated discharge: SNF Within: Other - Inpatient Certification Based on my medical assessment, after consideration of the patient's comorbidities, presenting symptoms, or acuity I expect that the services needed warrant INPATIENT care.: Yes I certify that my determination is in accordance with my understanding of Medicare's requirements for reasonable and necessary INPATIENT services [42 CFR 412.3e].: Yes Medical Necessity: Failure to Improve With Outpatient Therapy, Significant Comorbidiites Make Outpatient Treatment Too Risky, Need Close Monitoring Due to Risk of Patient Decompensation, Need For Continuous Telemetry Monitoring, Need for Nebulizer Therapy and Monitoring of Response, Risk of Complication if Not Cared For in Hospital
[2019-03-11] MEDS: BUDESONIDE NEB 0.5 MG/2 ML AMPUL NEB SCH ×2 (08:52→20:14)
[2019-03-11] MEDS: FUROSEMIDE INJ/PF 20 MG/2 ML SDV IV SCH (09:18)
[2019-03-11] MEDS: PANTOPRAZOLE SODIUM 40 MG VIAL IV SCH (09:18)
[2019-03-11] MEDS ORDERED: VANCOMYCIN HCL 750 MG in DEXTROSE 5%-WATER 250 ML IV SCH (10:00)
[2019-03-12] MEDS: PROPOFOL 1,000 MG/100 ML INFUS..BTL IV PRN ×5 (00:14→22:54)
[2019-03-12] MEDS: LEVALBUTEROL HCL NEB 1.25 MG/3 ML AMPUL NEB SCH ×3 (00:16→16:06)
[2019-03-12] MEDS: IPRATROPIUM BROMIDE 0.02% NEB 0.5 MG/2.5 ML AMPUL NEB SCH ×3 (00:16→16:06)
[2019-03-12] MEDS: RINGERS SOLUTION,LACTATED 1,000 ML IV PRN ×2 (03:29→16:22)
[2019-03-12 04:08] LABS: HEMOGLOBIN 9.1 g/dL (12.0-15.5); MEAN CORPUSCULAR HEMOGLOBIN 32.3 pg (27.0-33.4); MEAN CORPUSCULAR HGB CONC 32.6 g/dL (32.0-36.0); MEAN CORPUSCULAR VOLUME 99 fl (80-97); PLATELET COUNT 255 10^3/uL (150-450); RED BLOOD COUNT 2.82 10^6/uL (3.72-5.28); RED CELL DISTRIBUTION WIDTH 17.9 % (11.5-14.0); WHITE BLOOD COUNT 14.5 10^3/uL (4.0-10.5)
[2019-03-12 04:25] LABS: ALBUMIN 3.4 g/dL (3.5-5.0); ALKALINE PHOSPHATASE 68 U/L (38-126); ANION GAP 9 (5-19); ASPARTATE AMINO TRANSFERASE 31 U/L (14-36); BILIRUBIN,DIRECT 0.5 mg/dL (0.0-0.4); BILIRUBIN,TOTAL 1.2 mg/dL (0.2-1.3); BLOOD UREA NITROGEN 31 mg/dL (7-20); CALCIUM 9.7 mg/dL (8.4-10.2); CARBON DIOXIDE 35 mmol/L (22-30); CHLORIDE 98 mmol/L (98-107); GLUCOSE 95 mg/dL (75-110); POTASSIUM 3.8 mmol/L (3.6-5.0); TRIGLYCERIDES 100 mg/dL (<150)
[2019-03-12] MEDS: HEPARIN SOD (PORCINE) 5,000 UNIT/ML 1 ML VIAL SUBCUT SCH ×3 (05:13→22:55)
[2019-03-12] MEDS: BUDESONIDE NEB 0.5 MG/2 ML AMPUL NEB SCH ×2 (07:34→19:44)
--- NOTE | 2019-03-12 07:48 | PDOC PROGRESS REPORT ---
Subjective Progress Note for:: 03/12/19 Subjective:: Sedated, somewhat arousable. Reason For Visit: ACUTE RESPIRATORY FAILURE WITH HYPOXIA AND hyercarbia. PA hypertension. Physical Exam Vital Signs: Temp Pulse Resp BP Pulse Ox 98.6 F 86 12 110/65 96 03/12/19 06:00 03/12/19 00:15 03/12/19 06:04 03/12/19 06:04 03/12/19 06:04 Intake & Output 03/11/19 03/12/19 03/13/19 06:59 06:59 06:59 Intake Total 2722 3349 Output Total 5016 0170 Balance -1017 -0214 Weight 73.9 kg 71.3 kg General appearance: PRESENT: no acute distress Head exam: PRESENT: atraumatic Additional Comments: Sedated on diprivan Eye exam: PRESENT: PERRLA Ear exam: PRESENT: normal external ear exam Mouth exam: PRESENT: moist, tongue midline Additional comments: ETT present Additional comments: No JVD Respiratory exam: PRESENT: clear to auscultation bianca, decreased breath sounds, u nlabored Cardiovascular exam: PRESENT: RRR. ABSENT: diastolic murmur, rubs, systolic murmur Vascular exam: PRESENT: normal capillary refill GI/Abdominal exam: PRESENT: normal bowel sounds, soft. ABSENT: distended, guarding, mass, organolmegaly, rebound, tenderness Rectal exam: PRESENT: deferred Extremities exam: PRESENT: full ROM Musculoskeletal exam: PRESENT: normal inspection Neurological exam: PRESENT: altered Additional comments: Altered with sedation. Skin exam: PRESENT: normal color Results Laboratory Results: 03/12/19 03:40 03/12/19 03:40 03/12/19 03/12/19 03:40 03:40 WBC 14.5 H RBC 2.82 L Hgb 9.1 L Hct 28.0 L MCV 99 H MCH 32.3 MCHC 32.6 RDW 17.9 H Plt Count 255 Sodium 142.0 Potassium 3.8 Chloride 98 Carbon Dioxide 35 H Anion Gap 9 BUN 31 H Creatinine 1.86 H Est GFR ( Amer) 33 L Glucose 95 Calcium 9.7 Magnesium 1.8 Total Bilirubin 1.2 AST 31 Alkaline Phosphatase 68 Total Protein 6.0 L Albumin 3.4 L Triglycerides 100 03/10/19 16:45 Sputum Gram Stain - Final 03/10/19 16:45 Sputum Sputum Culture - Final NO GROWTH 2 DAYS 03/09/19 03/09/19 03/10/19 18:56 18:56 01:08 Creatine Kinase 52 34 CK-MB (CK-2) 5.90 H Troponin I < 0.012 NT-Pro-B Natriuret Pep 40854 H 03/10/19 03/10/19 03/10/19 01:08 07:30 07:30 Creatine Kinase 33 CK-MB (CK-2) 3.46 2.50 Troponin I < 0.012 0.013 NT-Pro-B Natriuret Pep 03/10/19 03/10/19 14:13 14:13 Creatine Kinase 39 CK-MB (CK-2) 1.43 Troponin I 0.017 NT-Pro-B Natriuret Pep Impressions: Head CT 03/09/19 19:17 IMPRESSION: No acute intracranial abnormalities. Chest X-Ray 03/10/19 01:00 IMPRESSION: STABLE APPEARANCE OF THE CHEST. SUPPORT DEVICES UNCHANGED. Assessment & Plan - Diagnosis (1) Acute on chronic congestive heart failure Qualifiers: Heart failure type: right-sided Qualified Code(s): I50.813 - Acute on chronic right heart failure Is this a current diagnosis for this admission?: Yes Plan: Currently not active (2) Acute respiratory failure with hypoxia and hypercapnia Is this a current diagnosis for this admission?: Yes Plan: Still vent dependant. Attempts to wean yesterday failed within just a few minutes. Will try again today. May need to change to Precedex. (3) COPD (chronic obstructive pulmonary disease) Qualifiers: COPD type: unspecified COPD Qualified Code(s): J44.9 - Chronic obstructive pulmonary disease, unspecified Is this a current diagnosis for this admission?: Yes Plan: Although she has known lung disease, this does not seem to be an active issue. Resiratory muscle weakness and high PA pressures is liely driving this. Continue lasix at lower dose. (4) Chronic kidney disease, stage 3 (moderate) Is this a current diagnosis for this admission?: Yes Plan: GFR and CR slightly improved today. - Time Time Spent with patient: 35 or more minutes Total Critical Time (Minutes): 35 Level of Care: ICU Medications reviewed and adjusted accordingly: Yes Anticipated discharge: SNF Within: Other - Inpatient Certification Based on my medical assessment, after consideration of the patient's com orbidities, presenting symptoms, or acuity I expect that the services needed warrant INPATIENT care.: Yes I certify that my determination is in accordance with my understanding of Medicare's requirements for reasonable and necessary INPATIENT services [42 CFR 412.3e].: Yes Medical Necessity: Failure to Improve With Outpatient Therapy, Significant Comorbidiites Make Outpatient Treatment Too Risky, Need Close Monitoring Due to Risk of Patient Decompensation, Need For IV Fluids, Need For Continuous Telemetry Monitoring, Need for Nebulizer Therapy and Monitoring of Response, Risk of Complication if Not Cared For in Hospital, Risk of Diagnosis Which Will Require Inpatient Eval/Care/Monitoring
[2019-03-12] MEDS ORDERED: DEXMEDETOMIDINE IN 0.9 % NACL 400 MCG/100 ML RTUPB IV ONE (08:26)
[2019-03-12] MEDS: DEXMEDETOMIDINE IN NS 400 MCG/100 ML RTUPB IV PRN ×5 (08:35→23:28)
[2019-03-12] MEDS: PANTOPRAZOLE SODIUM 40 MG VIAL IV SCH (09:29)
[2019-03-12] MEDS: FUROSEMIDE INJ/PF 20 MG/2 ML SDV IV SCH (09:30)
[2019-03-12] MEDS: LORAZEPAM 0.5 MG TABLET PO PRN (17:04)
[2019-03-13] MEDS: LEVALBUTEROL HCL NEB 1.25 MG/3 ML AMPUL NEB SCH ×4 (00:08→23:57)
[2019-03-13] MEDS: IPRATROPIUM BROMIDE 0.02% NEB 0.5 MG/2.5 ML AMPUL NEB SCH ×4 (00:08→23:57)
[2019-03-13] MEDS: DEXMEDETOMIDINE IN NS 400 MCG/100 ML RTUPB IV PRN ×6 (03:16→22:13)
[2019-03-13 04:30] LABS: ANION GAP 9 (5-19); BLOOD UREA NITROGEN 21 mg/dL (7-20); CALCIUM 9.4 mg/dL (8.4-10.2); CARBON DIOXIDE 31 mmol/L (22-30); CHLORIDE 104 mmol/L (98-107); GLUCOSE 116 mg/dL (75-110); POTASSIUM 3.6 mmol/L (3.6-5.0)
[2019-03-13] MEDS: PROPOFOL 1,000 MG/100 ML INFUS..BTL IV PRN ×4 (04:50→21:31)
[2019-03-13] MEDS: RINGERS SOLUTION,LACTATED 1,000 ML IV PRN ×2 (06:50→17:51)
[2019-03-13] MEDS: HEPARIN SOD (PORCINE) 5,000 UNIT/ML 1 ML VIAL SUBCUT SCH ×3 (06:52→21:32)
[2019-03-13] MEDS: BUDESONIDE NEB 0.5 MG/2 ML AMPUL NEB SCH ×2 (07:41→19:42)
[2019-03-13] MEDS: LORAZEPAM 0.5 MG TABLET PO PRN ×3 (08:06→19:51)
[2019-03-13] MEDS ORDERED: BISACODYL 10 MG SUPP.RECT PR ONE (09:07)
[2019-03-13] MEDS: FUROSEMIDE INJ/PF 20 MG/2 ML SDV IV SCH (10:28)
--- NOTE | 2019-03-13 12:11 | RADIOLOGY REPORT (SQ) ---
EXAM DESCRIPTION: KUB/ABDOMEN (SINGLE VIEW) COMPLETED DATE/TIME: 03/13/2019 10:57 am REASON FOR STUDY: Ileus vs. gastric outlet obstruction COMPARISON: 02/16/2019 NUMBER OF VIEWS: One view. TECHNIQUE: Supine radiographic image of the abdomen acquired. LIMITATIONS: None. FINDINGS: BOWEL GAS PATTERN: Normal bowel gas pattern. No dilated loops. CALCIFICATIONS: No suspicious calcifications. SOFT TISSUES: No gross mass or suggestion of organomegaly. HARDWARE: None in the abdomen. BONES: No acute fracture. No worrisome bone lesions. OTHER: Nasogastric tube tip overlying stomach. Delgado catheter. IMPRESSION: NO RADIOGRAPHIC EVIDENCE FOR ACUTE ABDOMINAL DISEASE. TECHNICAL DOCUMENTATION: JOB ID: [id number] [employer]- All Rights Reserved Reading location - IP/workstation name: [email or web address]
[2019-03-14] MEDS: LORAZEPAM 0.5 MG TABLET PO PRN ×3 (01:53→12:09)
[2019-03-14] MEDS: PROPOFOL 1,000 MG/100 ML INFUS..BTL IV PRN ×4 (03:38→22:47)
[2019-03-14] MEDS: DEXMEDETOMIDINE IN NS 400 MCG/100 ML RTUPB IV PRN ×5 (03:39→20:20)
[2019-03-14 04:50] LABS: ANION GAP 6 (5-19); BLOOD UREA NITROGEN 17 mg/dL (7-20); CARBON DIOXIDE 31 mmol/L (22-30); CHLORIDE 102 mmol/L (98-107); GLUCOSE 94 mg/dL (75-110); POTASSIUM 3.9 mmol/L (3.6-5.0)
[2019-03-14] MEDS: HEPARIN SOD (PORCINE) 5,000 UNIT/ML 1 ML VIAL SUBCUT SCH ×3 (05:16→21:32)
[2019-03-14] MEDS: RINGERS SOLUTION,LACTATED 1,000 ML IV PRN ×2 (06:36→19:06)
[2019-03-14] MEDS: LEVALBUTEROL HCL NEB 1.25 MG/3 ML AMPUL NEB SCH ×3 (08:28→23:58)
[2019-03-14] MEDS: IPRATROPIUM BROMIDE 0.02% NEB 0.5 MG/2.5 ML AMPUL NEB SCH ×3 (08:28→23:58)
[2019-03-14] MEDS: BUDESONIDE NEB 0.5 MG/2 ML AMPUL NEB SCH ×2 (08:28→20:12)
--- NOTE | 2019-03-14 09:15 | PDOC PROGRESS REPORT ---
Subjective Progress Note for:: 03/14/19 Subjective:: More awake but still sedated. Anxious. Reason For Visit: ACUTE RESPIRATORY FAILURE WITH HYPOXIA AND Physical Exam Vital Signs: Temp Pulse Resp BP Pulse Ox 98.8 F 66 30 H 102/66 100 03/14/19 08:00 03/14/19 08:43 03/14/19 08:28 03/14/19 08:00 03/14/19 08:28 Intake & Output 03/13/19 03/14/19 03/15/19 06:59 06:59 06:59 Intake Total 2916 2669 76 Output Total 3480 2810 20 Balance -564 -141 56 Weight 71.3 kg 70 kg General appearance: PRESENT: no acute distress Head exam: PRESENT: atraumatic, normocephalic Eye exam: PRESENT: conjunctiva pink, EOMI, PERRLA. ABSENT: scleral icterus Ear exam: PRESENT: normal external ear exam Mouth exam: PRESENT: moist, tongue midline Neck exam: PRESENT: full ROM. ABSENT: carotid bruit, JVD, lymphadenopathy, thyromegaly Respiratory exam: PRESENT: clear to auscultation bianca, decreased breath sounds, unlabored Cardiovascular exam: PRESENT: RRR. ABSENT: diastolic murmur, rubs, systolic murmur Vascular exam: PRESENT: normal capillary refill GI/Abdominal exam: PRESENT: normal bowel sounds, soft. ABSENT: distended, guarding, mass, organolmegaly, rebound, tenderness Rectal exam: PRESENT: deferred Gentrourinary exam: PRESENT: indwelling catheter Extremities exam: PRESENT: full ROM Musculoskeletal exam: PRESENT: normal inspection Neurological exam: PRESENT: altered Skin exam: PRESENT: dry, intact, warm. ABSENT: cyanosis, rash Results Laboratory Results: 03/12/19 03:40 03/14/19 04:06 03/14/19 04:06 Sodium 139.1 Potassium 3.9 Chloride 102 Carbon Dioxide 31 H Anion Gap 6 BUN 17 Creatinine 1.12 Est GFR ( Amer) > 60 Glucose 94 Calcium 9.0 03/09/19 03/09/19 03/10/19 18:56 18:56 01:08 Creatine Kinase 52 34 CK-MB (CK-2) 5.90 H Troponin I < 0.012 NT-Pro-B Natriuret Pep 09918 H 03/10/19 03/10/1919 01:08 07:30 07:30 Creatine Kinase 33 CK-MB (CK-2) 3.46 2.50 Troponin I < 0.012 0.013 NT-Pro-B Natriuret Pep 03/10/19 03/10/19 14:13 14:13 Creatine Kinase 39 CK-MB (CK-2) 1.43 Troponin I 0.017 NT-Pro-B Natriuret Pep Impressions: Head CT 03/09/19 19:17 IMPRESSION: No acute intracranial abnormalities. Chest X-Ray 03/10/19 01:00 IMPRESSION: STABLE APPEARANCE OF THE CHEST. SUPPORT DEVICES UNCHANGED. KUB X-Ray 03/13/19 00:00 IMPRESSION: NO RADIOGRAPHIC EVIDENCE FOR ACUTE ABDOMINAL DISEASE. Assessment & Plan - Diagnosis (1) Acute on chronic congestive heart failure Qualifiers: Heart failure type: right-sided Qualified Code(s): I50.813 - Acute on chronic right heart failure Is this a current diagnosis for this admission?: Yes Plan: Her R sided failure is being treated with lasix. This is stable but is leaving her systemic pressures a bit low. This is needed with her PA pressures as evidenced from her last admission with a PA catheter. (2) Acute respiratory failure with hypoxia and hypercapnia Is this a current diagnosis for this admission?: Yes Plan: Sever COPD (emphysems) and muscle weakness is making it difficult to extubate. On CPAP right now. (3) COPD (chronic obstructive pulmonary disease) Qualifiers: COPD type: unspecified COPD Qualified Code(s): J44.9 - Chronic obstructive pulmonary disease, unspecified Is this a current diagnosis for this admission?: Yes Plan: Same. Not wheezing. (4) Chronic kidney disease, stage 3 (moderate) Is this a current diagnosis for this admission?: Yes Plan: Improved for now with CR 1.2, GFR > 60. - Time Time Spent with patient: 35 or more minutes Total Critical Time (Minutes): 35 Level of Care: ICU Medications reviewed and adjusted accordingly: Yes Anticipated discharge: SNF Within: Other - Inpatient Certification Based on my medical assessment, after consideration of the patient's comorbidities, presenting symptoms, or acuity I expect that the services needed warrant INPATIENT care.: Yes I certify that my determination is in accordance with my understanding of Medicare's requirements for reasonable and necessary INPATIENT services [42 CFR 412.3e].: Yes Medical Necessity: Failure to Improve With Outpatient Therapy, Significant Comorbidiites Make Outpatient Treatment Too Risky, Need Close Monitoring Due to Risk of Patient Decompensation, Need For IV Fluids, Need for Nebulizer Therapy and Monitoring of Response
[2019-03-14] MEDS: FAMOTIDINE 20 MG TABLET PO SCH ×2 (09:57→17:11)
[2019-03-14] MEDS: FUROSEMIDE INJ/PF 20 MG/2 ML SDV IV SCH (09:57)
[2019-03-14] MEDS: METOCLOPRAMIDE HCL INJ/PF 10 MG/2 ML SDV IV SCH (17:11)
[2019-03-14] MEDS ORDERED: BISACODYL 10 MG SUPP.RECT PR ONE (17:30)
[2019-03-15] MEDS: DEXMEDETOMIDINE IN NS 400 MCG/100 ML RTUPB IV PRN ×6 (00:05→22:52)
[2019-03-15] MEDS: PROPOFOL 1,000 MG/100 ML INFUS..BTL IV PRN ×3 (03:49→18:31)
[2019-03-15 04:00] LABS: HEMATOCRIT 29.7 % (36.0-47.0); HEMOGLOBIN 9.6 g/dL (12.0-15.5); MEAN CORPUSCULAR HEMOGLOBIN 31.5 pg (27.0-33.4); MEAN CORPUSCULAR HGB CONC 32.3 g/dL (32.0-36.0); MEAN CORPUSCULAR VOLUME 97 fl (80-97); PLATELET COUNT 349 10^3/uL (150-450); RED BLOOD COUNT 3.05 10^6/uL (3.72-5.28); RED CELL DISTRIBUTION WIDTH 16.8 % (11.5-14.0); WHITE BLOOD COUNT 8.2 10^3/uL (4.0-10.5)
[2019-03-15 04:04] LABS: ANION GAP 8 (5-19); BLOOD UREA NITROGEN 13 mg/dL (7-20); CALCIUM 9.3 mg/dL (8.4-10.2); CARBON DIOXIDE 29 mmol/L (22-30); CHLORIDE 105 mmol/L (98-107); GLUCOSE 110 mg/dL (75-110); POTASSIUM 3.8 mmol/L (3.6-5.0); TRIGLYCERIDES 193 mg/dL (<150)
[2019-03-15 04:05] LABS: ABSOLUTE LYMPHOCYTES# (MANUAL) 0.7 10^3/uL (0.5-4.7); ABSOLUTE MONOCYTES # (MANUAL) 0.2 10^3/uL (0.1-1.4); BASOPHILS % (MANUAL) 1 % (0-2); EOSINOPHILS % (MANUAL) 6 % (0-6); LYMPHOCYTES % (MANUAL) 9 % (13-45); MONOCYTES % (MANUAL) 3 % (3-13); SEGMENTED NEUTROPHILS % (MAN) 81 % (42-78); TOTAL CELLS COUNTED 100; TOXIC GRANULATION SLIGHT
[2019-03-15 04:06] LABS: POLYCHROMASIA SLIGHT
[2019-03-15 04:07] LABS: ANISOCYTOSIS 1+; OVALOCYTES 1+; PLATELET COMMENT ADEQUATE; POIKILOCYTOSIS 1+; TEAR DROP CELLS 1+
[2019-03-15] MEDS: HEPARIN SOD (PORCINE) 5,000 UNIT/ML 1 ML VIAL SUBCUT SCH ×3 (05:37→21:00)
[2019-03-15] MEDS: METOCLOPRAMIDE HCL INJ/PF 10 MG/2 ML SDV IV SCH ×2 (05:37→17:18)
[2019-03-15] MEDS: BUDESONIDE NEB 0.5 MG/2 ML AMPUL NEB SCH ×2 (08:10→20:28)
[2019-03-15] MEDS: IPRATROPIUM BROMIDE 0.02% NEB 0.5 MG/2.5 ML AMPUL NEB SCH ×3 (08:10→23:38)
[2019-03-15] MEDS: LEVALBUTEROL HCL NEB 1.25 MG/3 ML AMPUL NEB SCH ×3 (08:10→23:38)
--- NOTE | 2019-03-15 08:26 | PDOC PROGRESS REPORT ---
Subjective Progress Note for:: 03/15/19 Subjective:: Sedated, somewhat arousable. Occassionall gets quite anxious. Reason For Visit: ACUTE RESPIRATORY FAILURE WITH HYPOXIA AND Physical Exam Vital Signs: Temp Pulse Resp BP Pulse Ox 98.6 F 59 L 10 L 137/77 H 97 03/14/19 14:00 03/15/19 00:00 03/15/19 06:00 03/15/19 05:47 03/15/19 06:00 Intake & Output 03/14/19 03/15/19 03/16/19 06:59 06:59 06:59 Intake Total 2669 2044 133 Output Total 2810 2480 35 Balance -141 -436 98 Weight 70 kg 70.4 kg General appearance: PRESENT: no acute distress Head exam: PRESENT: atraumatic, normocephalic Eye exam: PRESENT: conjunctiva pink, EOMI, PERRLA. ABSENT: scleral icterus Additional comments: Back tooth found loose and intact in mouth this AM. Ear exam: PRESENT: normal external ear exam Additional comments: ETT in place. Additional comments: No JVD Respiratory exam: PRESENT: clear to auscultation bianca, decreased breath sounds, unlabored Cardiovascular exam: PRESENT: tachycardia. ABSENT: diastolic murmur, rubs, systolic murmur Vascular exam: PRESENT: normal capillary refill GI/Abdominal exam: PRESENT: normal bowel sounds, soft. ABSENT: distended, guarding, mass, organolmegaly, rebound, tenderness Rectal exam: PRESENT: deferred Gentrourinary exam: PRESENT: indwelling catheter Extremities exam: PRESENT: full ROM Musculoskeletal exam: PRESENT: full ROM, normal inspection Additional comments: Sedated. Psychiatric exam: PRESENT: agitated Additional comments: At times Skin exam: PRESENT: dry, intact, warm. ABSENT: cyanosis, rash Results Laboratory Results: 03/15/19 03:35 03/15/19 03:35 03/15/19 03/15/19 03:35 03:35 WBC 8.2 RBC 3.05 L Hgb 9.6 L Hct 29.7 L MCV 97 MCH 31.5 MCHC 32.3 RDW 16.8 H Plt Count 349 Seg Neutrophils % Not Reportable Sodium 142.0 Potassium 3.8 Chloride 105 Carbon Dioxide 29 Anion Gap 8 BUN 13 Creatinine 1.11 Est GFR ( Amer) > 60 Glucose 110 Calcium 9.3 Triglycerides 193 H 03/09/19 20:00 Blood Blood Culture - Final NO GROWTH IN 5 DAYS 03/09/19 18:56 Blood Blood Culture - Final NO GROWTH IN 5 DAYS 03/09/19 03/09/19 03/10/19 18:56 18:56 01:08 Creatine Kinase 52 34 CK-MB (CK-2) 5.90 H Troponin I < 0.012 NT-Pro-B Natriuret Pep 29419 H 03/10/19 03/10/19 03/10/19 01:08 07:30 07:30 Creatine Kinase 33 CK-MB (CK-2) 3.46 2.50 Troponin I < 0.012 0.013 NT-Pro-B Natriuret Pep 03/10/19 03/10/19 14:13 14:13 Creatine Kinase 39 CK-MB (CK-2) 1.43 Troponin I 0.017 NT-Pro-B Natriuret Pep Impressions: Head CT 03/09/19 19:17 IMPRESSION: No acute intracranial abnormalities. Chest X-Ray 03/10/19 01:00 IMPRESSION: STABLE APPEARANCE OF THE CHEST. SUPPORT DEVICES UNCHANGED. KUB X-Ray 03/13/19 00:00 IMPRESSION: NO RADIOGRAPHIC EVIDENCE FOR ACUTE ABDOMINAL DISEASE. Assessment & Plan - Diagnosis (1) Acute on chronic congestive heart failure Qualifiers: Heart failure type: right-sided Qualified Code(s): I50.813 - Acute on chronic right heart failure Is this a current diagnosis for this admission?: Yes Plan: R sided failure seems stable at the moment. (2) Acute respiratory failure with hypoxia and hypercapnia Is this a current diagnosis for this admission?: Yes Plan: The main reason for the conitued need for ICU care. We cannot extubate. Yesterday her RSBI was 160, second time 200 and her NIF was 5. We are still exersizing her today. She was seen and evaluated by Wing Horton of [facility]. An LTAC for possible transfer. He will explore with insurance and family seems accepting at the moment. (3) COPD (chronic obstructive pulmonary disease) Qualifiers: COPD type: unspecified COPD Qualified Code(s): J44.9 - Chronic obstructive pulmonary disease, unspecified Is this a current diagnosis for this admission?: Yes Plan: Severe in nature. Although not wheezing likely playing a role in the inability to get her extubated. (4) Chronic kidney disease, stage 3 (moderate) Is this a current diagnosis for this admission?: Yes Plan: Resolved for now with a GFR > 60 and Cr 1.1. - Time Time Spent with patient: 35 or more minutes Total Critical Time (Minutes): 35 Level of Care: ICU Medications reviewed and adjusted accordingly: Yes Anticipated discharge: Tertiary Hospital Within: Other - Inpatient Certification Based on my medical assessment, after consideration of the patient's comorbidities, presenting symptoms, or acuity I expect that the services needed warrant INPATIENT care.: Yes I certify that my determination is in accordance with my understanding of Medicare's requirements for reasonable and necessary INPATIENT services [42 CFR 412.3e].: Yes Medical Necessity: Failure to Improve With Outpatient Therapy, Significant Comorbidiites Make Outpatient Treatment Too Risky, Need Close Monitoring Due to Risk of Patient Decompensation, Risk of Complication if Not Cared For in Hospital
[2019-03-15] MEDS: RINGERS SOLUTION,LACTATED 1,000 ML IV PRN ×2 (08:30→22:00)
[2019-03-15] MEDS: FUROSEMIDE INJ/PF 20 MG/2 ML SDV IV SCH (09:17)
[2019-03-15] MEDS: FAMOTIDINE 20 MG TABLET PO SCH ×2 (09:17→17:19)
[2019-03-15] MEDS: LORAZEPAM 0.5 MG TABLET PO PRN ×3 (09:53→20:57)
[2019-03-16] MEDS: LORAZEPAM 0.5 MG TABLET PO PRN ×4 (00:58→13:41)
[2019-03-16] MEDS: DEXMEDETOMIDINE IN NS 400 MCG/100 ML RTUPB IV PRN ×7 (02:42→23:41)
[2019-03-16] MEDS: PROPOFOL 1,000 MG/100 ML INFUS..BTL IV PRN ×4 (02:43→23:42)
[2019-03-16] MEDS: METOCLOPRAMIDE HCL INJ/PF 10 MG/2 ML SDV IV SCH ×2 (05:11→17:21)
[2019-03-16] MEDS: HEPARIN SOD (PORCINE) 5,000 UNIT/ML 1 ML VIAL SUBCUT SCH ×3 (05:11→22:13)
[2019-03-16 05:18] LABS: ANION GAP 8 (5-19); BLOOD UREA NITROGEN 11 mg/dL (7-20); CARBON DIOXIDE 28 mmol/L (22-30); CHLORIDE 107 mmol/L (98-107); GLUCOSE 95 mg/dL (75-110); POTASSIUM 3.8 mmol/L (3.6-5.0)
[2019-03-16] MEDS: BUDESONIDE NEB 0.5 MG/2 ML AMPUL NEB SCH ×2 (08:00→20:29)
[2019-03-16] MEDS: LEVALBUTEROL HCL NEB 1.25 MG/3 ML AMPUL NEB SCH ×2 (08:00→15:47)
[2019-03-16] MEDS: IPRATROPIUM BROMIDE 0.02% NEB 0.5 MG/2.5 ML AMPUL NEB SCH ×2 (08:00→15:47)
--- NOTE | 2019-03-16 08:20 | PDOC PROGRESS REPORT ---
Subjective Progress Note for:: 03/16/19 Subjective:: She is still sedated Reason For Visit: ACUTE RESPIRATORY FAILURE WITH HYPOXIA AND Physical Exam Vital Signs: Temp Pulse Resp BP Pulse Ox 97.7 F 64 16 119/71 98 03/16/19 05:40 03/15/19 20:25 03/16/19 06:00 03/16/19 05:30 03/16/19 06:00 Intake & Output 03/15/19 03/16/19 03/17/19 06:59 06:59 06:59 Intake Total 2044 1838 Output Total 2480 2250 Balance -436 -412 Weight 70.4 kg 72.2 kg General appearance: PRESENT: no acute distress Head exam: PRESENT: atraumatic, normocephalic Eye exam: PRESENT: conjunctiva pink, EOMI, PERRLA. ABSENT: scleral icterus Ear exam: PRESENT: normal external ear exam Mouth exam: PRESENT: moist, tongue midline, other - ETT Respiratory exam: PRESENT: clear to auscultation bianca, decreased breath sounds, tachypnea Cardiovascular exam: PRESENT: tachycardia Vascular exam: PRESENT: normal capillary refill GI/Abdominal exam: PRESENT: normal bowel sounds, soft. ABSENT: distended, guarding, mass, organolmegaly, rebound, tenderness Rectal exam: PRESENT: deferred Gentrourinary exam: PRESENT: indwelling catheter Extremities exam: PRESENT: full ROM Musculoskeletal exam: PRESENT: normal inspection Neurological exam: PRESENT: altered Psychiatric exam: PRESENT: anxious Skin exam: PRESENT: dry, intact, warm. ABSENT: cyanosis, rash Results Laboratory Results: 03/15/19 03:35 03/16/19 03:54 03/16/19 03:54 Sodium 142.7 Potassium 3.8 Chloride 107 Carbon Dioxide 28 Anion Gap 8 BUN 11 Creatinine 0.93 Est GFR ( Amer) > 60 Glucose 95 Calcium 9.0 03/09/19 03/09/19 03/10/19 18:56 18:56 01:08 Creatine Kinase 52 34 CK-MB (CK-2) 5.90 H Troponin I < 0.012 NT-Pro-B Natriuret Pep 64662 H 03/10/19 03/10/19 03/10/19 01:08 07:30 07:30 Creatine Kinase 33 CK-MB (CK-2) 3.46 2.50 Troponin I < 0.012 0.013 NT-Pro-B Natriuret Pep 03/10/19 03/10/19 14:13 14:13 Creatine Kinase 39 CK-MB (CK-2) 1.43 Troponin I 0.017 NT-Pro-B Natriuret Pep Impressions: Head CT 03/09/19 19:17 IMPRESSION: No acute intracranial abnormalities. Chest X-Ray 03/10/19 01:00 IMPRESSION: STABLE APPEARANCE OF THE CHEST. SUPPORT DEVICES UNCHANGED. KUB X-Ray 03/13/19 00:00 IMPRESSION: NO RADIOGRAPHIC EVIDENCE FOR ACUTE ABDOMINAL DISEASE. Assessment & Plan - Diagnosis (1) Acute on chronic congestive heart failure Qualifiers: Heart failure type: right-sided Qualified Code(s): I50.813 - Acute on chronic right heart failure Is this a current diagnosis for this admission?: Yes Plan: Resolved (2) Acute respiratory failure with hypoxia and hypercapnia Is this a current diagnosis for this admission?: Yes Plan: Attempts to wean have failed. Awaiting word from insurance and LTAC. Continue weaning processs. If declined by [facility] or LTAC will revisit trach and PEG. Discussed with daughter who also brought up hospice. (3) COPD (chronic obstructive pulmonary disease) Qualifiers: COPD type: unspecified COPD Qualified Code(s): J44.9 - Chronic obstructive pulmonary disease, unspecified Is this a current diagnosis for this admission?: Yes Plan: Contributing on continuance on vent (4) Chronic kidney disease, stage 3 (moderate) Is this a current diagnosis for this admission?: Yes Plan: Resolved, Cr .9 GFR > 60. - Time Time Spent with patient: 35 or more minutes Total Critical Time (Minutes): 35 Level of Care: ICU Medications reviewed and adjusted accordingly: Yes Anticipated discharge: Tertiary Hospital Within: within 72 hours - Inpatient Certification Based on my medical assessment, after consideration of the patient's comorbidities, presenting symptoms, or acuity I expect that the services needed warrant INPATIENT care.: Yes I certify that my determination is in accordance with my understanding of Medicare's requirements for reasonable and necessary INPATIENT services [42 CFR 412.3e].: Yes Medical Necessity: Failure to Improve With Outpatient Therapy, Significant Comorbidiites Make Outpatient Treatment Too Risky, Need Close Monitoring Due to Risk of Patient Decompensation, Risk of Complication if Not Cared For in Hospital
[2019-03-16] MEDS: FUROSEMIDE INJ/PF 20 MG/2 ML SDV IV SCH (10:20)
[2019-03-16] MEDS: FAMOTIDINE 20 MG TABLET PO SCH ×2 (10:21→17:21)
[2019-03-16] MEDS: RINGERS SOLUTION,LACTATED 1,000 ML IV PRN (18:28)
[2019-03-17] MEDS: IPRATROPIUM BROMIDE 0.02% NEB 0.5 MG/2.5 ML AMPUL NEB SCH ×3 (00:12→16:14)
[2019-03-17] MEDS: LEVALBUTEROL HCL NEB 1.25 MG/3 ML AMPUL NEB SCH ×3 (00:12→16:14)
[2019-03-17] MEDS: DEXMEDETOMIDINE IN NS 400 MCG/100 ML RTUPB IV PRN ×6 (04:13→23:52)
[2019-03-17] MEDS: PROPOFOL 1,000 MG/100 ML INFUS..BTL IV PRN ×4 (04:14→20:45)
[2019-03-17] MEDS: RINGERS SOLUTION,LACTATED 1,000 ML IV PRN (04:14)
[2019-03-17 04:51] LABS: BLOOD UREA NITROGEN 10 mg/dL (7-20); CALCIUM 8.9 mg/dL (8.4-10.2); CHLORIDE 104 mmol/L (98-107); GLUCOSE 98 mg/dL (75-110); POTASSIUM 3.5 mmol/L (3.6-5.0)
[2019-03-17 04:57] LABS: CARBON DIOXIDE 33 mmol/L (22-30)
[2019-03-17 04:58] LABS: ANION GAP 4 (5-19)
[2019-03-17] MEDS: METOCLOPRAMIDE HCL INJ/PF 10 MG/2 ML SDV IV SCH ×2 (05:14→18:17)
[2019-03-17] MEDS: HEPARIN SOD (PORCINE) 5,000 UNIT/ML 1 ML VIAL SUBCUT SCH ×3 (05:14→21:32)
[2019-03-17] MEDS: BUDESONIDE NEB 0.5 MG/2 ML AMPUL NEB SCH ×2 (07:34→21:29)
[2019-03-17] MEDS: FUROSEMIDE INJ/PF 20 MG/2 ML SDV IV SCH (12:10)
[2019-03-17] MEDS: FAMOTIDINE 20 MG TABLET PO SCH ×2 (12:12→18:17)
--- NOTE | 2019-03-17 14:39 | EKG REPORT ---
SEVERITY:- BORDERLINE ECG - SINUS RHYTHM PROBABLE LEFT ATRIAL ABNORMALITY RIGHT AXIS DEVIATION BORDERLINE T ABNORMALITIES, INFERIOR LEADS : Confirmed by: Yi Grover MD 17-Mar-2019 14:39:17
[2019-03-17] MEDS ORDERED: FENTANYL CITRATE INJ/PF 100 MCG/2 ML AMPUL IV PRN (18:48)
--- NOTE | 2019-03-17 18:56 | PDOC PROGRESS REPORT ---
Subjective Progress Note for:: 03/17/19 Subjective:: Patient remains sedated on ventilator. Did not tolerate ventilator wean yesterday and had high RSBI. Repeat attempt throughout the day was unsuccessful. Only being evaluated for LTAC. Reason For Visit: ACUTE RESPIRATORY FAILURE WITH HYPOXIA AND Pulmonary Hypertension Physical Exam Vital Signs: Temp Pulse Resp BP Pulse Ox 97.9 F 82 22 H 113/64 99 03/17/19 08:00 03/17/19 08:00 03/17/19 08:00 03/17/19 08:00 03/17/19 08:00 Intake & Output 03/16/19 03/17/19 03/18/19 06:59 06:59 06:59 Intake Total 2838 3314 Output Total 2250 2140 125 Balance 588 1174 -125 Weight 72.2 kg 72.5 kg Physical Exam: Intubated, ill, non-toxic, 63 yo black female, NAD General appearance: PRESENT: no acute distress Eye exam: PRESENT: conjunctiva pink, PERRLA. ABSENT: conjunctival injection, nystagmus, scleral icterus Mouth exam: PRESENT: dry mucosa, neck supple Neck exam: PRESENT: JVD. ABSENT: carotid bruit, lymphadenopathy, thyromegaly, tracheal deviation Respiratory exam: PRESENT: clear to auscultation bianca, tachypnea. ABSENT: accessory muscle use, unlabored Additional comments: On SBT at bedside Cardiovascular exam: PRESENT: RRR, +S1, +S2. ABSENT: rubs, systolic murmur Pulses: PRESENT: +1 pedal pulses bilateral Vascular exam: ABSENT: pallor GI/Abdominal exam: PRESENT: normal bowel sounds, soft. ABSENT: ascites, distended, firm, guarding, mass, Keyes's sign, organolmegaly, rebound, rigid, tenderness Rectal exam: PRESENT: deferred Gentrourinary exam: PRESENT: indwelling catheter Extremities exam: PRESENT: pedal edema. ABSENT: joint swelling Musculoskeletal exam: PRESENT: normal inspection. ABSENT: deformity, dislocation Neurological exam: PRESENT: altered Additional comments: Sedated: GCS Skin exam: PRESENT: intact, normal color. ABSENT: erythema, jaundice, petechi ae, urticaria, vesicles Results Laboratory Results: 03/15/19 03:35 03/17/19 03:56 03/17/19 03:56 Sodium 139.6 Potassium 3.5 L Chloride 104 Carbon Dioxide 33 H Anion Gap 4 L BUN 10 Creatinine 0.98 Est GFR ( Amer) > 60 Glucose 98 Calcium 8.9 03/09/19 03/09/19 03/10/19 18:56 18:56 01:08 Creatine Kinase 52 34 CK-MB (CK-2) 5.90 H Troponin I < 0.012 NT-Pro-B Natriuret Pep 50619 H 03/10/19 03/10/19 03/10/19 01:08 07:30 07:30 Creatine Kinase 33 CK-MB (CK-2) 3.46 2.50 Troponin I < 0.012 0.013 NT-Pro-B Natriuret Pep 03/10/19 03/10/19 14:13 14:13 Creatine Kinase 39 CK-MB (CK-2) 1.43 Troponin I 0.017 NT-Pro-B Natriuret Pep Impressions: Head CT 03/09/19 19:17 IMPRESSION: No acute intracranial abnormalities. Chest X-Ray 03/10/19 01:00 IMPRESSION: STABLE APPEARANCE OF THE CHEST. SUPPORT DEVICES UNCHANGED. KUB X-Ray 03/13/19 00:00 IMPRESSION: NO RADIOGRAPHIC EVIDENCE FOR ACUTE ABDOMINAL DISEASE. Status: Image reviewed by me - Agree. Clear lung soto. CT from 02/2019 reviewed. Significant upper lobe predominate emphysema Assessment & Plan - Diagnosis (1) Acute on chronic respiratory failure with hypoxia and hypercapnia Is this a current diagnosis for this admission?: Yes (2) Moderate to severe pulmonary hypertension Is this a current diagnosis for this admission?: Yes Plan: WHO class III (3) Emphysema of lung Qualifiers: Emphysema type: centrilobular Qualified Code(s): J43.2 - Centrilobular emphysema Is this a current diagnosis for this admission?: Yes (4) Anxiety and depression Is this a current diagnosis for this admission?: Yes - Time Time Spent with patient: 35 or more minutes Total Critical Time (Minutes): 50 Level of Care: ICU Medications reviewed and adjusted accordingly: Yes Anticipated discharge: Acute Rehab Within: within 24 hours - Inpatient Certification Based on my medical assessment, after consideration of the patient's comorbidities, presenting symptoms, or acuity I expect that the services needed warrant INPATIENT care.: Yes I certify that my determination is in accordance with my understanding of Medicare's requirements for reasonable and necessary INPATIENT services [42 CFR 412.3e].: Yes Medical Necessity: Significant Comorbidiites Make Outpatient Treatment Too Risky, Need For Continuous Telemetry Monitoring, Need for Neurological Checks, Risk of Complication if Not Cared For in Hospital, Risk of Diagnosis Which Will Require Inpatient Eval/Care/Monitoring - Plan Summary Plan Summary: 03.17.19: Patient has significant pulmonary hypertension that was not ameliorated by the use of milrinone. She had been placed on sildenafil but had a 20 mg daily dose. It is unlikely that this had any attributable treatment effect. Reevaluated the CAT scan done from February. There is significant central lobar emphysema predominantly upper lobe. This is likely congruent with her long- standing smoking history. There is a family history of pulmonary hypertension and there is a question of lupus. Patient's autoimmune work-up is negative. Given her extensive emphysema history I have restarted steroids and will follow her course accordingly. In addition to the above her A1AT is negative Continue supportive care. She is being considered for LTAC. As far as her sedation will start to wean propofol and use Seroquel for vent agitation as well as her depression and anxiety. She also has chronic pain and lying in bed is causing significant discomfort and she endorses this at bedside. The care of the patient is a dynamic an ongoing process throughout the ICU. Events of the day are captured in a one-time note format in an attempt to describe the last 24 hours. Orders done or given are not always reflected by the timing of the placement in the chart. This patient requires critical care secondary to: Acute respiratory failure, pulmonary hypertension and the use of mechanical ventilation. Medical power of case mgr is her son. He was updated at bedside. Have discontinued IV fluids.
[2019-03-17] MEDS ORDERED: METHYLPREDNISOLONE INJ 125 MG/2 ML SDV IV ONE (19:00)
[2019-03-17] MEDS: QUETIAPINE FUMARATE 25 MG TABLET PO SCH (21:32)
[2019-03-18] MEDS: LEVALBUTEROL HCL NEB 1.25 MG/3 ML AMPUL NEB SCH ×3 (00:03→17:07)
[2019-03-18] MEDS: IPRATROPIUM BROMIDE 0.02% NEB 0.5 MG/2.5 ML AMPUL NEB SCH ×3 (00:03→17:08)
[2019-03-18] MEDS: PROPOFOL 1,000 MG/100 ML INFUS..BTL IV PRN ×5 (02:26→23:50)
[2019-03-18] MEDS: DEXMEDETOMIDINE IN NS 400 MCG/100 ML RTUPB IV PRN ×5 (03:52→23:26)
[2019-03-18 04:56] LABS: HEMATOCRIT 30.3 % (36.0-47.0); HEMOGLOBIN 10.1 g/dL (12.0-15.5); MEAN CORPUSCULAR HGB CONC 33.2 g/dL (32.0-36.0); MEAN CORPUSCULAR VOLUME 96 fl (80-97); PLATELET COUNT 459 10^3/uL (150-450); RED BLOOD COUNT 3.15 10^6/uL (3.72-5.28); RED CELL DISTRIBUTION WIDTH 16.6 % (11.5-14.0); WHITE BLOOD COUNT 9.2 10^3/uL (4.0-10.5)
[2019-03-18 05:11] LABS: ALKALINE PHOSPHATASE 74 U/L (38-126); ANION GAP 7 (5-19); ASPARTATE AMINO TRANSFERASE 39 U/L (14-36); BILIRUBIN,DIRECT 0.2 mg/dL (0.0-0.4); BILIRUBIN,TOTAL 0.3 mg/dL (0.2-1.3); BLOOD UREA NITROGEN 12 mg/dL (7-20); CALCIUM 9.4 mg/dL (8.4-10.2); CARBON DIOXIDE 29 mmol/L (22-30); CHLORIDE 107 mmol/L (98-107); GLUCOSE 160 mg/dL (75-110); PHOSPHORUS 4.4 mg/dL (2.5-4.5); POTASSIUM 4.8 mmol/L (3.6-5.0); TOTAL PROTEIN 6.2 g/dL (6.3-8.2); TRIGLYCERIDES 113 mg/dL (<150)
[2019-03-18] MEDS: HEPARIN SOD (PORCINE) 5,000 UNIT/ML 1 ML VIAL SUBCUT SCH ×3 (05:33→22:00)
[2019-03-18] MEDS: METHYLPREDNISOLONE INJ 40 MG/1 ML SDV IV SCH ×2 (05:33→17:35)
[2019-03-18 05:34] LABS: ABSOLUTE LYMPHOCYTES# (MANUAL) 0.9 10^3/uL (0.5-4.7); ABSOLUTE MONOCYTES # (MANUAL) 0.2 10^3/uL (0.1-1.4); BAND NEUTROPHILS % (MANUAL) 4 % (3-5); BASOPHILS % (MANUAL) 0 % (0-2); EOSINOPHILS % (MANUAL) 0 % (0-6); LYMPHOCYTES % (MANUAL) 10 % (13-45); MONOCYTES % (MANUAL) 2 % (3-13); SEGMENTED NEUTROPHILS % (MAN) 84 % (42-78); TOTAL CELLS COUNTED 100
[2019-03-18 05:36] LABS: ANISOCYTOSIS 1+; OVALOCYTES 1+; POIKILOCYTOSIS 1+; TEAR DROP CELLS SLIGHT; TOXIC GRANULATION SLIGHT
[2019-03-18 05:37] LABS: PLATELET COMMENT ADEQUATE
[2019-03-18 05:57] LABS: ARTERIAL BLOOD BASE EXCESS 6.4 mmol/L; ARTERIAL BLOOD H2CO3 1.58 mmol/L (1.05-1.35); ARTERIAL BLOOD HCO3 32.2 mmol/L (20-24); ARTERIAL BLOOD O2 SATURATION 94.4 % (94-98); ARTERIAL BLOOD PCO2 52.6 mmHg (35-45); ARTERIAL BLOOD PH 7.41 (7.35-7.45); ARTERIAL BLOOD PO2 72.4 mmHg (80-100); ARTERIAL BLOOD TOTAL CO2 33.8 mmol/L (21-25)
[2019-03-18 05:58] LABS: ARTERIAL BLOOD FIO2 40%
[2019-03-18] MEDS: BUDESONIDE NEB 0.5 MG/2 ML AMPUL NEB SCH ×2 (08:18→20:47)
[2019-03-18] MEDS: FAMOTIDINE 20 MG TABLET PO SCH ×2 (10:29→17:35)
[2019-03-18] MEDS: FUROSEMIDE INJ/PF 20 MG/2 ML SDV IV SCH (10:29)
[2019-03-18] MEDS: QUETIAPINE FUMARATE 25 MG TABLET PO SCH (10:30)
[2019-03-18 10:32] LABS: ARTERIAL BLOOD H2CO3 1.23 mmol/L (1.05-1.35); ARTERIAL BLOOD O2 SATURATION 94.9 % (94-98); ARTERIAL BLOOD PCO2 40.8 mmHg (35-45); ARTERIAL BLOOD PH 7.47 (7.35-7.45); ARTERIAL BLOOD PO2 69.4 mmHg (80-100); ARTERIAL BLOOD TOTAL CO2 30.3 mmol/L (21-25)
[2019-03-18] MEDS ORDERED: DIGOXIN 0.125 MG TABLET PO ONE (12:46)
[2019-03-18] MEDS ORDERED: DIGOXIN 0.125 MG TABLET PO SCH (13:00)
[2019-03-18] MEDS ORDERED: SILDENAFIL CITRATE 20 MG TABLET PO SCH (14:00)
--- NOTE | 2019-03-18 15:40 | PDOC PROGRESS REPORT ---
Subjective Progress Note for:: 03/18/19 Subjective:: 03.18.19: Patient had uneventful evening. Started on Seroquel for vent agitation and anxiety. I/O shows an negative balance and her IV fluids were discontinued on rounds yesterday. She was started on steroids. It appears that as her steroids are being weaned she has a recrudescence of exacerbation of COPD. She had also been on once daily Sildenafil. 03.17.19: Patient remains sedated on ventilator. Did not tolerate ventilator wean yesterday and had high RSBI. Repeat attempt throughout the day was unsuccessful. Only being evaluated for LTAC. Reason For Visit: ACUTE RESPIRATORY FAILURE WITH HYPOXIA AND Physical Exam Vital Signs: Temp Pulse Resp BP Pulse Ox 97.5 F 73 12 127/71 H 94 03/17/19 22:00 03/18/19 00:03 03/18/19 00:03 03/17/19 22:30 03/18/19 00:03 Intake & Output 03/16/19 03/17/19 03/18/19 06:59 06:59 06:59 Intake Total 2838 3314 898 Output Total 2250 2140 1925 Balance 588 1174 -1027 Weight 72.2 kg 72.5 kg 72.5 kg Physical Exam: Intubated, chronically and critically ill-appearing 63-year-old black female no active disease she awakens to voice and follows commands. General appearance: PRESENT: no acute distress, well-developed Eye exam: PRESENT: conjunctiva pink, PERRLA. ABSENT: conjunctival injection, nystagmus, scleral icterus Mouth exam: PRESENT: dry mucosa, neck supple Neck exam: ABSENT: carotid bruit, JVD, lymphadenopathy, thyromegaly, tracheal deviation Respiratory exam: PRESENT: unlabored. ABSENT: accessory muscle use, clear to auscultation bianca, crackles, rhonchi, tachypnea, wheezes Cardiovascular exam: PRESENT: RRR, +S1, +S2. ABSENT: systolic murmur, tachyc ardia Pulses: PRESENT: normal dorsalis pedis pul, +2 pedal pulses bilateral GI/Abdominal exam: PRESENT: normal bowel sounds, soft. ABSENT: ascites, d iminished bowel sounds, distended, firm, guarding, hyperactive bowel sounds, mass, Keyes's sign, organolmegaly, rebound, rigid, tenderness Rectal exam: PRESENT: deferred Gentrourinary exam: PRESENT: indwelling catheter Extremities exam: PRESENT: pedal edema. ABSENT: joint swelling Musculoskeletal exam: ABSENT: deformity, dislocation Neurological exam: PRESENT: altered - Sedated on ventilator. GCS:3-2t (tries to speak)-6. ABSENT: motor sensory deficit Additional comments: Responsive to voice. Psychiatric exam: ABSENT: agitated, anxious Skin exam: PRESENT: dry, intact, normal color. ABSENT: erythema, mottled, petechiae, urticaria, vesicles Results Laboratory Results: 03/15/19 03:35 03/17/19 03:56 03/17/19 03:56 Sodium 139.6 Potassium 3.5 L Chloride 104 Carbon Dioxide 33 H Anion Gap 4 L BUN 10 Creatinine 0.98 Est GFR ( Amer) > 60 Glucose 98 Calcium 8.9 03/09/19 03/09/19 03/10/19 18:56 18:56 01:08 Creatine Kinase 52 34 CK-MB (CK-2) 5.90 H Troponin I < 0.012 NT-Pro-B Natriuret Pep 18899 H 03/10/19 03/10/19 03/10/19 01:08 07:30 07:30 Creatine Kinase 33 CK-MB (CK-2) 3.46 2.50 Troponin I < 0.012 0.013 NT-Pro-B Natriuret Pep 03/10/19 03/10/19 14:13 14:13 Creatine Kinase 39 CK-MB (CK-2) 1.43 Troponin I 0.017 NT-Pro-B Natriuret Pep Labs- All tests 24 hr 03/17/19 03/17/19 03/17/19 12:34 18:15 23:18 WBC RBC Hgb Hct MCV MCH MCHC RDW Plt Count Lymph % (Auto) [place] % (Auto) Eos % (Auto) Baso % (Auto) Absolute Neuts (auto) Absolute Lymphs (auto) Absolute Monos (auto) Absolute Eos (auto) Absolute Basos (auto) Total Counted Seg Neutrophils % Seg Neuts % (Manual) Band Neutrophils % Lymphocytes % (Manual) Monocytes % (Manual) Eosinophils % (Manual) Basophils % (Manual) Abs Neuts (Manual) Abs Lymphs (Manual) Abs Monocytes (Manual) Absolute Eos (Manual) Abs Basophils (Manual) Toxic Granulation Platelet Comment Poikilocytosis Anisocytosis Tear Drop Cells Ovalocytes Carbonic Acid HCO3/H2CO3 Ratio ABG pH ABG pCO2 ABG pO2 ABG HCO3 ABG Total CO2 ABG O2 Saturation ABG Base Excess FiO2 Sodium Potassium Chloride Carbon Dioxide Anion Gap BUN Creatinine Est GFR ( Amer) Est GFR (MDRD) Non-Af Glucose POC Glucose 102 104 123 H Calcium Phosphorus Magnesium Total Bilirubin Direct Bilirubin Neonat Total Bilirubin Neonat Direct Bilirubin Neonat Indirect Bili AST ALT Alkaline Phosphatase Ammonia Total Protein Albumin Triglycerides 03/18/19 03/18/19 03/18/19 04:08 04:08 04:08 WBC 9.2 RBC 3.15 L Hgb 10.1 L Hct 30.3 L MCV 96 MCH 32.0 MCHC 33.2 RDW 16.6 H Plt Count 459 H Lymph % (Auto) Not Reportable [place] % (Auto) Not Reportable Eos % (Auto) Not Reportable Baso % (Auto) Not Reportable Absolute Neuts (auto) Not Reportable Absolute Lymphs (auto) Not Reportable Absolute Monos (auto) Not Reportable Absolute Eos (auto) Not Reportable Absolute Basos (auto) Not Reportable Total Counted 100 Seg Neutrophils % Not Reportable Seg Neuts % (Manual) 84 H Band Neutrophils % 4 Lymphocytes % (Manual) 10 L Monocytes % (Manual) 2 L Eosinophils % (Manual) 0 Basophils % (Manual) 0 Abs Neuts (Manual) 8.1 Abs Lymphs (Manual) 0.9 Abs Monocytes (Manual) 0.2 Absolute Eos (Manual) 0.0 Abs Basophils (Manual) 0.0 Toxic Granulation SLIGHT Platelet Comment ADEQUATE Poikilocytosis 1+ Anisocytosis 1+ Tear Drop Cells SLIGHT Ovalocytes 1+ Carbonic Acid HCO3/H2CO3 Ratio ABG pH ABG pCO2 ABG pO2 ABG HCO3 ABG Total CO2 ABG O2 Saturation ABG Base Excess FiO2 Sodium 142.8 Potassium 4.8 Chloride 107 Carbon Dioxide 29 Anion Gap 7 BUN 12 Creatinine 0.89 Est GFR ( Amer) > 60 Est GFR (MDRD) Non-Af > 60 Glucose 160 H POC Glucose Calcium 9.4 Phosphorus 4.4 Magnesium 2.0 Total Bilirubin 0.3 Direct Bilirubin 0.2 Neonat Total Bilirubin Not Reportable Neonat Direct Bilirubin Not Reportable Neonat Indirect Bili Not Reportable AST 39 H ALT 37 Alkaline Phosphatase 74 Ammonia 17.0 Total Protein 6.2 L Albumin 3.0 L Triglycerides 113 03/18/19 05:46 WBC RBC Hgb Hct MCV MCH MCHC RDW Plt Count Lymph % (Auto) [place] % (Auto) Eos % (Auto) Baso % (Auto) Absolute Neuts (auto) Absolute Lymphs (auto) Absolute Monos (auto) Absolute Eos (auto) Absolute Basos (auto) Total Counted Seg Neutrophils % Seg Neuts % (Manual) Band Neutrophils % Lymphocytes % (Manual) Monocytes % (Manual) Eosinophils % (Manual) Basophils % (Manual) Abs Neuts (Manual) Abs Lymphs (Manual) Abs Monocytes (Manual) Absolute Eos (Manual) Abs Basophils (Manual) Toxic Granulation Platelet Comment Poikilocytosis Anisocytosis Tear Drop Cells Ovalocytes Carbonic Acid 1.58 H HCO3/H2CO3 Ratio 20:1 ABG pH 7.41 ABG pCO2 52.6 H ABG pO2 72.4 L ABG HCO3 32.2 H ABG Total CO2 33.8 H ABG O2 Saturation 94.4 ABG Base Excess 6.4 FiO2 40% Sodium Potassium Chloride Carbon Dioxide Anion Gap BUN Creatinine Est GFR ( Amer) Est GFR (MDRD) Non-Af Glucose POC Glucose Calcium Phosphorus Magnesium Total Bilirubin Direct Bilirubin Neonat Total Bilirubin Neonat Direct Bilirubin Neonat Indirect Bili AST ALT Alkaline Phosphatase Ammonia Total Protein Albumin Triglycerides Impressions: Head CT 03/09/19 19:17 IMPRESSION: No acute intracranial abnormalities. Chest X-Ray 03/10/19 01:00 IMPRESSION: STABLE APPEARANCE OF THE CHEST. SUPPORT DEVICES UNCHANGED. KUB X-Ray 03/13/19 00:00 IMPRESSION: NO RADIOGRAPHIC EVIDENCE FOR ACUTE ABDOMINAL DISEASE. Status: Image reviewed by me Assessment & Plan - Diagnosis (1) Acute on chronic respiratory failure with hypoxia and hypercapnia Is this a current diagnosis for this admission?: Yes (2) Moderate to severe pulmonary hypertension Is this a current diagnosis for this admission?: Yes (3) Emphysema of lung Qualifiers: Emphysema type: centrilobular Qualified Code(s): J43.2 - Centrilobular emphysema Is this a current diagnosis for this admission?: Yes (4) Anxiety and depression Is this a current diagnosis for this admission?: Yes - Time Time Spent with patient: 35 or more minutes Total Critical Time (Minutes): 68 Level of Care: ICU Medications reviewed and adjusted accordingly: Yes Anticipated discharge: Acute Rehab, Other - LTAC - Inpatient Certification Based on my medical assessment, after consideration of the patient's comorbidities, presenting symptoms, or acuity I expect that the services needed warrant INPATIENT care.: Yes I certify that my determination is in accordance with my understanding of Medicare's requirements for reasonable and necessary INPATIENT services [42 CFR 412.3e].: Yes Medical Necessity: Significant Comorbidiites Make Outpatient Treatment Too Risky, Need Close Monitoring Due to Risk of Patient Decompensation, Need for Nebulizer Therapy and Monitoring of Response, Risk of Complication if Not Cared For in Hospital, Risk of Diagnosis Which Will Require Inpatient Eval/Care/Monitoring - Plan Summary Plan Summary: 03.18.19: Patient is slowly improving. Long-term prognosis is still tenuous. We will at tempt to begin weaning process again today with improvement in her anxiety and sedation. Maintain a negative fluid balance at this point with judicious monitoring to prevent underfilling of the left ventricle. We may be forced to at least apply some phosphodiesterase inhibition to achieve this. At this point her emphysema is pretty significant and end-stage with oxygen dependency chronically. She now has who class III pulmonary hypertension. Treatment for this entity is only supportive and focuses on improvement in pulmonary function. There is a family history of pulmonary hypertension and her sister is on sildenafil. As noted below no evidence to support an autoimmune phenomena for this patient. He currently is being considered for LTAC, however, the LTAC, given her insurance implications, would require tracheostomy prior to transfer. I had a lengthy discussion with the pulmonary hypertension specialist at [facility] who also is a lung transplant specialist. His name is Dr.Jordan Centeno and his cell phone number is [phone]. We did discuss some options given this patient's condition. She initially had minimal response to milrinone on her last admission. I did discuss with her son that there appears to have been some improvement when she was placed on sildenafil however he could not qualify or quantify how much. Given the fact that class III pulmonary hypertension is as noted above related most often to lung disease I queried the specialist regarding the reintroduction of sildenafil and possibly digoxin to offload the right ventricle. He felt that both were an excellent idea and would have recommended this as well. Consideration for He also would like her to be considered for transplant. Attempt to wean today and will meet with the family to discuss our plans. I sincerest concern is that we offer the optimal care. She is currently not a candidate for acute transplant nor ECMO. Plan is to break from the ventilator if possible and have her follow-up as an outpatient with Dr. Centeno at [facility]. Had extensive meeting with extended family today and discussed plan of care and her options. 03.17.19: Patient has significant pulmonary hypertension that was not ameliorated by the use of milrinone. She had been placed on sildenafil but had a 20 mg daily dose. It is unlikely that this had any attributable treatment effect. Reevaluated the CAT scan done from February. There is significant central lobar emphysema predominantly upper lobe. This is likely congruent with her long- standing smoking history. There is a family history of pulmonary hypertension and there is a question of lupus. Patient's autoimmune work-up is negative. Given her extensive emphysema history I have restarted steroids and will follow her course accordingly. In addition to the above her A1AT is negative Continue supportive care. She is being considered for LTAC. As far as her sedation will start to wean propofol and use Seroquel for vent agitation as well as her depression and anxiety. She also has chronic pain and lying in bed is causing significant discomfort and she endorses this at bedside. 03.18.19: The care of the patient is a dynamic an ongoing process throughout the ICU. Events of the day are captured in a one-time note format in an attempt to describe the last 24 hours. Orders done or given are not always reflected by the timing of the placement in the chart. This patient requires critical care secondary to: Acute respiratory failure, pulmonary hypertension and the use of mechanical ventilation. Medical power of drill press operator helper is her son. Will update.
[2019-03-18] MEDS: SILDENAFIL CITRATE 20 MG TABLET PO SCH (17:34)
[2019-03-18] MEDS: DIGOXIN 0.125 MG TABLET PO SCH (17:35)
[2019-03-19] MEDS: LEVALBUTEROL HCL NEB 1.25 MG/3 ML AMPUL NEB SCH ×3 (00:22→16:02)
[2019-03-19] MEDS: IPRATROPIUM BROMIDE 0.02% NEB 0.5 MG/2.5 ML AMPUL NEB SCH ×3 (00:22→16:02)
[2019-03-19] MEDS: DEXMEDETOMIDINE IN NS 400 MCG/100 ML RTUPB IV PRN ×4 (03:16→15:32)
[2019-03-19 04:21] LABS: ANION GAP 6 (5-19)
[2019-03-19 04:22] LABS: HEMATOCRIT 27.9 % (36.0-47.0); HEMOGLOBIN 9.3 g/dL (12.0-15.5); MEAN CORPUSCULAR HGB CONC 33.4 g/dL (32.0-36.0); MEAN CORPUSCULAR VOLUME 96 fl (80-97); PLATELET COUNT 475 10^3/uL (150-450); RED BLOOD COUNT 2.92 10^6/uL (3.72-5.28); RED CELL DISTRIBUTION WIDTH 16.4 % (11.5-14.0); WHITE BLOOD COUNT 10.9 10^3/uL (4.0-10.5)
[2019-03-19] MEDS: HEPARIN SOD (PORCINE) 5,000 UNIT/ML 1 ML VIAL SUBCUT SCH ×3 (05:30→21:04)
[2019-03-19] MEDS: METHYLPREDNISOLONE INJ 40 MG/1 ML SDV IV SCH ×3 (05:30→23:09)
[2019-03-19 07:14] LABS: BLOOD UREA NITROGEN 15 mg/dL (7-20); CALCIUM 9.4 mg/dL (8.4-10.2); CARBON DIOXIDE 31 mmol/L (22-30); CHLORIDE 104 mmol/L (98-107); GLUCOSE 133 mg/dL (75-110); PHOSPHORUS 3.3 mg/dL (2.5-4.5); POTASSIUM 4.2 mmol/L (3.6-5.0)
[2019-03-19] MEDS: PROPOFOL 1,000 MG/100 ML INFUS..BTL IV PRN (07:48)
[2019-03-19] MEDS: BUDESONIDE NEB 0.5 MG/2 ML AMPUL NEB SCH ×2 (07:51→19:55)
[2019-03-19 07:56] LABS: ARTERIAL BLOOD BASE EXCESS 6.5 mmol/L; ARTERIAL BLOOD H2CO3 1.54 mmol/L (1.05-1.35); ARTERIAL BLOOD O2 SATURATION 95.9 % (94-98); ARTERIAL BLOOD PCO2 51.3 mmHg (35-45); ARTERIAL BLOOD PH 7.41 (7.35-7.45); ARTERIAL BLOOD PO2 81.1 mmHg (80-100); ARTERIAL BLOOD TOTAL CO2 33.6 mmol/L (21-25)
[2019-03-19 08:00] LABS: ARTERIAL BLOOD FIO2 40%
[2019-03-19 08:10] LABS: ABSOLUTE LYMPHOCYTES# (MANUAL) 0.8 10^3/uL (0.5-4.7); ANISOCYTOSIS 1+; BAND NEUTROPHILS % (MANUAL) 2 % (3-5); BASOPHILS % (MANUAL) 0 % (0-2); EOSINOPHILS % (MANUAL) 0 % (0-6); LYMPHOCYTES % (MANUAL) 7 % (13-45); MONOCYTES % (MANUAL) 9 % (3-13); OVALOCYTES SLIGHT; POIKILOCYTOSIS SLIGHT; POLYCHROMASIA SLIGHT; SEGMENTED NEUTROPHILS % (MAN) 82 % (42-78); TEAR DROP CELLS SLIGHT; TOTAL CELLS COUNTED 100; TOXIC GRANULATION 1+; TOXIC VACUOLATION PRESENT
--- NOTE | 2019-03-19 08:10 | RADIOLOGY REPORT (SQ) ---
EXAM DESCRIPTION: CHEST SINGLE VIEW COMPLETED DATE/TIME: 03/19/2019 7:37 am REASON FOR STUDY: emphysema COMPARISON: 03/10/2019 NUMBER OF VIEWS: One view. TECHNIQUE: Single frontal radiographic image of the chest acquired. LIMITATIONS: None. FINDINGS: LUNGS AND PLEURA: Stable appearance. MEDIASTINUM AND HILAR STRUCTURES: Stable heart size and mediastinal structures. HEART AND VASCULAR STRUCTURES: Stable appearance. SUPPORT DEVICES: Appropriate location without change. BONES: No acute findings. OTHER: No other significant finding. IMPRESSION: STABLE APPEARANCE OF THE CHEST. SUPPORT DEVICES UNCHANGED. TECHNICAL DOCUMENTATION: JOB ID: [id number] Employee [employer]it [employer]- All Rights Reserved Reading location - IP/workstation name: [email or web address]
[2019-03-19 08:11] LABS: PLATELET COMMENT INCREASED
[2019-03-19] MEDS: FENTANYL CITRATE INJ/PF 100 MCG/2 ML AMPUL IV PRN ×2 (09:18→15:23)
[2019-03-19] MEDS: FUROSEMIDE INJ/PF 20 MG/2 ML SDV IV SCH (10:11)
[2019-03-19] MEDS: SILDENAFIL CITRATE 20 MG TABLET PO SCH ×3 (10:12→17:07)
[2019-03-19] MEDS: FAMOTIDINE 20 MG TABLET PO SCH (10:13)
[2019-03-19] MEDS: DIGOXIN 0.125 MG TABLET PO SCH (10:14)
[2019-03-19] MEDS: ALPRAZOLAM 0.5 MG TABLET PO PRN ×2 (11:08→17:07)
[2019-03-19 16:34] LABS: ARTERIAL BLOOD BASE EXCESS 8.8 mmol/L; ARTERIAL BLOOD FIO2 35%; ARTERIAL BLOOD H2CO3 1.49 mmol/L (1.05-1.35); ARTERIAL BLOOD HCO3 33.9 mmol/L (20-24); ARTERIAL BLOOD O2 SATURATION 92.1 % (94-98); ARTERIAL BLOOD PCO2 49.6 mmHg (35-45); ARTERIAL BLOOD PH 7.45 (7.35-7.45); ARTERIAL BLOOD PO2 60.9 mmHg (80-100); ARTERIAL BLOOD TOTAL CO2 35.5 mmol/L (21-25)
--- NOTE | 2019-03-19 17:58 | PDOC PROGRESS REPORT ---
Subjective Progress Note for:: 03/19/19 Subjective:: 03.19.19: Patient has had an uneventful past 12 hours. He is breathing more comfortably and appears to be tolerating the initiation of sildenafil and digoxin. There has been no hypoxic events and no worsening of her respiratory failure. As noted yesterday a lengthy family meeting was carried out to discuss goals and plans of care. The patient's son feels that she would be reluctant to have a tracheostomy and he has been concerned about her quality. This is juxtaposed to her sisters and other family members opinion that she would want a tracheostomy. Patient met suitability for SBT and sustained adequate ventilation and oxygenation culminating in the ability to liberate from the ventilator this afternoon. He has been resting comfortably but failed her swallowing evaluation. He was extubated to high flow. 03.18.19: Patient had uneventful evening. Started on Seroquel for vent agitation and anxiety. I/O shows an negative balance and her IV fluids were discontinued on rounds yesterday. She was started on steroids. It appears that as her steroids are being weaned she has a recrudescence of exacerbation of COPD. She had also been on once daily Sildenafil. 03.17.19: Patient remains sedated on ventilator. Did not tolerate ventilator wean yesterday and had high RSBI. Repeat attempt throughout the day was unsuccessful. Only being evaluated for LTAC. Reason For Visit: ACUTE RESPIRATORY FAILURE WITH HYPOXIA AND Physical Exam Vital Signs: Temp Pulse Resp BP Pulse Ox 98.2 F 70 12 103/58 L 97 03/18/19 16:00 03/19/19 00:23 03/19/19 03:00 03/19/19 02:31 03/19/19 03:15 Intake & Output 03/18/19 03/19/19 03/20/19 06:59 06:59 06:59 Intake Total 1235 1966 Output Total 2405 750 Balance -1170 1216 Weight 73.5 kg Physical Exam: Evaluated prior to extubation and after extubation. On both examinations no acute distress awake alert and oriented. Able to verbalize after extubation stridor. General appearance: PRESENT: no acute distress, cooperative, well-developed, well-nourished. ABSENT: mild distress, severe distress Eye exam: PRESENT: conjunctiva pink, EOMI, PERRLA. ABSENT: conjunctival injection, nystagmus, scleral icterus Mouth exam: PRESENT: moist, neck supple, tongue midline Neck exam: PRESENT: full ROM. ABSENT: carotid bruit, JVD, lymphadenopathy, tenderness, thyromegaly, tracheal deviation, tracheostomy Respiratory exam: PRESENT: clear to auscultation bianca, unlabored. ABSENT: accessory muscle use, crackles, rales, rhonchi, stridor, tachypnea, wheezes Cardiovascular exam: PRESENT: RRR, +S1, +S2. ABSENT: systolic murmur Pulses: PRESENT: +2 pedal pulses bilateral Vascular exam: PRESENT: normal capillary refill. ABSENT: pallor GI/Abdominal exam: PRESENT: normal bowel sounds, soft. ABSENT: ascites, diminished bowel sounds, distended, firm, guarding, mass, Keyes's sign, organolmegaly, rebound, rigid, tenderness Rectal exam: PRESENT: deferred Gentrourinary exam: PRESENT: indwelling catheter Extremities exam: PRESENT: pedal edema. ABSENT: joint swelling Musculoskeletal exam: PRESENT: normal inspection. ABSENT: deformity, dislocation Neurological exam: PRESENT: alert, awake, oriented to person, oriented to place, oriented to situation, CN II-XII grossly intact. ABSENT: motor sensory deficit Psychiatric exam: PRESENT: appropriate affect. ABSENT: agitated, anxious Focused psych exam: ABSENT: psychomotor agitation, restlessness Skin exam: PRESENT: intact. ABSENT: cyanosis, erythema, jaundice, mottled, pallor, petechiae, urticaria, vesicles Results Laboratory Results: 03/19/19 03:45 03/18/19 03/19/19 10:20 03:45 Carbonic Acid 1.23 HCO3/H2CO3 Ratio 23:1 ABG pH 7.47 H ABG pCO2 40.8 ABG pO2 69.4 L ABG HCO3 29.0 H ABG O2 Saturation 94.9 ABG Base Excess 5.0 FiO2 55% Sodium 140.7 Potassium 4.2 Chloride 104 Carbon Dioxide 31 H Anion Gap 6 BUN 15 Creatinine 0.90 Est GFR ( Amer) > 60 Glucose 133 H Calcium 9.4 Phosphorus 3.3 Magnesium 2.1 03/09/19 03/09/19 03/10/19 18:56 18:56 01:08 Creatine Kinase 52 34 CK-MB (CK-2) 5.90 H Troponin I < 0.012 NT-Pro-B Natriuret Pep 30138 H 11/04/19 11/04/19 11/04/19 01:08 07:30 07:30 Creatine Kinase 33 CK-MB (CK-2) 3.46 2.50 Troponin I < 0.012 0.013 NT-Pro-B Natriuret Pep 03/10/19 03/10/19 14:13 14:13 Creatine Kinase 39 CK-MB (CK-2) 1.43 Troponin I 0.017 NT-Pro-B Natriuret Pep Impressions: Head CT 03/09/19 19:17 IMPRESSION: No acute intracranial abnormalities. KUB X-Ray 03/13/19 00:00 IMPRESSION: NO RADIOGRAPHIC EVIDENCE FOR ACUTE ABDOMINAL DISEASE. Status: Image reviewed by me Assessment & Plan - Diagnosis (1) Acute on chronic respiratory failure with hypoxia and hypercapnia Is this a current diagnosis for this admission?: Yes (2) Moderate to severe pulmonary hypertension Is this a current diagnosis for this admission?: Yes (3) Emphysema of lung Qualifiers: Emphysema type: centrilobular Qualified Code(s): J43.2 - Centrilobular emphysema Is this a current diagnosis for this admission?: Yes (4) Anxiety and depression Is this a current diagnosis for this admission?: Yes - Time Time Spent with patient: 35 or more minutes Total Critical Time (Minutes): 60 Level of Care: ICU Medications reviewed and adjusted accordingly: Yes Anticipated discharge: Acute Rehab Within: within 48 hours - Inpatient Certification Based on my medical assessment, after consideration of the patient's comorbidities, presenting symptoms, or acuity I expect that the services needed warrant INPATIENT care.: Yes I certify that my determination is in accordance with my understanding of Medicare's requirements for reasonable and necessary INPATIENT services [42 CFR 412.3e].: Yes Medical Necessity: Significant Comorbidiites Make Outpatient Treatment Too Risky, Need Close Monitoring Due to Risk of Patient Decompensation, Need For IV Fluids, Need For Continuous Telemetry Monitoring, Risk of Complication if Not Cared For in Hospital, Risk of Diagnosis Which Will Require Inpatient Eval/Care/Monitoring - Plan Summary Plan Summary: 03.19.19: Family meeting to discuss plan of care, tracheostomy and patient's wishes was done. The overall theme was patient life quality. Patient has tolerated weaning and liberation from the ventilator. From a respiratory standpoint we will continue the sildenafil and the digoxin. In the next 24 hours we will increase dosing of sildenafil for titration effect. Check digoxin level in 5 days as well. Maintain normal potassium. Patient obviously has pulmonary and critical care deconditioning and will have physical therapy start working with her. Has significant anxiety and will reintroduce her Xanax. We have not used Seroquel secondary to the EKG effects and I am concerned with this while the patient is on digoxin. Extubated to high flow and will transition to BiPAP settings at night. Physical therapy has been ordered for tomorrow As noted below plans have been started for the patient to be evaluated, once discharged at the [place] [facility]. They have recommended prostacyclin therapy at some point however will need to have her follow-up with them prior to starting this. She also may be a candidate for endothelial receptor therapy however will need to measure the effect of the Seroquel. She also is a potential candidate for transplant. We will start to wean her steroids. Patient had significant renal failure on her last admission but now her creatinine is below 1 which is a beneficial finding. I took the opportunity to try to speak to the patient about long-term goals and transplant. She is somewhat excited about the possibility of further care and feels less nihilistic about her prognosis. Assured her of continued supportive care. Have adjusted her beta agonist therapy as well. Multidisciplinary rounds were carried out at bedside. ABCDEF Guidelines addressed for patient care. Orders done or given are not always reflected by the timing of the placement in the chart. This patient requires critical care secondary to: Acute respiratory failure, pul monary hypertension and the use of mechanical ventilation. Medical power of environmental attorney is her son. Son was updated. 03.18.19: Patient is slowly improving. Long-term prognosis is still tenuous. We will attempt to begin weaning process again today with improvement in her anxiety and sedation. Maintain a negative fluid balance at this point with judicious monitoring to pr event underfilling of the left ventricle. We may be forced to at least apply some phosphodiesterase inhibition to achieve this. At this point her emphysema is pretty significant and end-stage with oxygen dependency chronically. She now has who class III pulmonary hypertension. Treatment for this entity is only supportive and focuses on improvement in pulmonary function. There is a family history of pulmonary hypertension and her sister is on sildenafil. As noted below no evidence to support an autoimmune phenomena for this patient. He currently is being considered for LTAC, however, the LTAC, given her insurance implications, would require tracheostomy prior to transfer. I had a lengthy discussion with the pulmonary hypertension specialist at [facility] who also is a lung transplant specialist. His name is Dr.Jordan Centeno and his cell phone number is [phone]. We did discuss some options given this patient's condition. She initially had minimal response to milrinone on her last admission. I did discuss with her son that there appears to have been some improvement when she was placed on sildenafil however he could not qualify or quantify how much. Given the fact t hat class III pulmonary hypertension is as noted above related most often to lung disease I queried the specialist regarding the reintroduction of sildenafil and possibly digoxin to offload the right ventricle. He felt that both were an excellent idea and would have recommended this as well. Consideration for He also would like her to be considered for transplant. Attempt to wean today and will meet with the family to discuss our plans. I sincerest concern is that we offer the optimal care. She is currently not a candidate for acute transplant nor ECMO. Plan is to liberate from the ventil ator if possible and have her follow-up as an outpatient with Dr. Centeno at [facility]. Had extensive meeting with extended family today and discussed plan of care and her options. 03.17.19: Patient has significant pulmonary hypertension that was not ameliorated by the use of milrinone. She had been placed on sildenafil but had a 20 mg daily dose. It is unlikely that this had any attributable treatment effect. Reevaluated the CAT scan done from February. There is significant central lobar emphysema predominantly upper lobe. This is likely congruent with her long- standing smoking history. There is a family history of pulmonary hypertension and there is a question of lupus. Patient's autoimmune work-up is negative. Given her extensive emphysema history I have restarted steroids and will follow her course accordingly. In addition to the above her A1AT is negative Continue supportive care. She is being considered for LTAC. As far as her sedation will start to wean propofol and use Seroquel for vent agitation as well as her depression and anxiety. She also has chronic pain and lying in bed is causing significant discomfort and she endorses this at bedside. 19: The care of the patient is a dynamic an ongoing process throughout the ICU. Events of the day are captured in a one-time note format in an attempt to describe the last 24 hours.
[2019-03-19 18:46] LABS: ARTERIAL BLOOD BASE EXCESS 8.2 mmol/L; ARTERIAL BLOOD H2CO3 1.75 mmol/L (1.05-1.35); ARTERIAL BLOOD HCO3 34.5 mmol/L (20-24); ARTERIAL BLOOD O2 SATURATION 96.6 % (94-98); ARTERIAL BLOOD PCO2 58.1 mmHg (35-45); ARTERIAL BLOOD PH 7.39 (7.35-7.45); ARTERIAL BLOOD PO2 89.7 mmHg (80-100); ARTERIAL BLOOD TOTAL CO2 36.2 mmol/L (21-25)
[2019-03-19 18:55] LABS: ARTERIAL BLOOD FIO2 15L
[2019-03-19] MEDS: IPRATROPIUM/ALBUTEROL 0.5-2.5 MG/3 ML AMPUL NEB SCH (19:55)
[2019-03-19] MEDS ORDERED: DEXMEDETOMIDINE IN 0.9 % NACL 400 MCG/100 ML RTUPB IV ONE ×2 (19:58→23:55)
[2019-03-20] MEDS: IPRATROPIUM/ALBUTEROL 0.5-2.5 MG/3 ML AMPUL NEB SCH ×4 (00:05→11:56)
[2019-03-20 04:41] LABS: HEMATOCRIT 30.3 % (36.0-47.0); HEMOGLOBIN 10.1 g/dL (12.0-15.5); MEAN CORPUSCULAR HEMOGLOBIN 31.8 pg (27.0-33.4); MEAN CORPUSCULAR HGB CONC 33.3 g/dL (32.0-36.0); MEAN CORPUSCULAR VOLUME 96 fl (80-97); PLATELET COUNT 431 10^3/uL (150-450); RED BLOOD COUNT 3.17 10^6/uL (3.72-5.28); RED CELL DISTRIBUTION WIDTH 16.3 % (11.5-14.0); WHITE BLOOD COUNT 10.9 10^3/uL (4.0-10.5)
[2019-03-20 04:52] LABS: PHOSPHORUS 3.9 mg/dL (2.5-4.5)
[2019-03-20 05:13] LABS: ABSOLUTE LYMPHOCYTES# (MANUAL) 1.2 10^3/uL (0.5-4.7); ABSOLUTE MONOCYTES # (MANUAL) 0.9 10^3/uL (0.1-1.4); BAND NEUTROPHILS % (MANUAL) 2 % (3-5); BASOPHILS % (MANUAL) 0 % (0-2); EOSINOPHILS % (MANUAL) 0 % (0-6); LYMPHOCYTES % (MANUAL) 11 % (13-45); MONOCYTES % (MANUAL) 8 % (3-13); SEGMENTED NEUTROPHILS % (MAN) 79 % (42-78); TOTAL CELLS COUNTED 100
[2019-03-20] MEDS: METHYLPREDNISOLONE INJ 40 MG/1 ML SDV IV SCH ×2 (05:13→17:40)
[2019-03-20] MEDS: HEPARIN SOD (PORCINE) 5,000 UNIT/ML 1 ML VIAL SUBCUT SCH ×3 (05:14→21:54)
[2019-03-20 05:15] LABS: ANISOCYTOSIS SLIGHT; OVALOCYTES SLIGHT; POIKILOCYTOSIS SLIGHT; SCHISTOCYTES SLIGHT; TOXIC GRANULATION SLIGHT; TOXIC VACUOLATION PRESENT
[2019-03-20 05:16] LABS: PLATELET COMMENT ADEQUATE
[2019-03-20] MEDS: BUDESONIDE NEB 0.5 MG/2 ML AMPUL NEB SCH (08:03)
[2019-03-20] MEDS: SILDENAFIL CITRATE 20 MG TABLET PO SCH ×2 (10:53→17:41)
[2019-03-20] MEDS: DIGOXIN 0.125 MG TABLET PO SCH (10:53)
[2019-03-20] MEDS: FUROSEMIDE INJ/PF 20 MG/2 ML SDV IV SCH (10:54)
[2019-03-20 12:19] LABS: ARTERIAL BLOOD BASE EXCESS 7.6 mmol/L; ARTERIAL BLOOD HCO3 35.4 mmol/L (20-24); ARTERIAL BLOOD O2 SATURATION 93.8 % (94-98); ARTERIAL BLOOD PCO2 66.5 mmHg (35-45); ARTERIAL BLOOD PH 7.34 (7.35-7.45); ARTERIAL BLOOD PO2 74.9 mmHg (80-100); ARTERIAL BLOOD TOTAL CO2 37.4 mmol/L (21-25)
[2019-03-20] MEDS ORDERED: SILDENAFIL CITRATE 20 MG TABLET PO SCH (14:00)
[2019-03-20] MEDS: FLUTICASONE/UMECLIDIN/VILANTER 100-62.5-25 MCG/DOSE IH SCH (14:50)
[2019-03-20] MEDS: ALBUTEROL SULFATE 0.042% NEB (1.25 MG/3 ML) AMPUL NEB SCH ×2 (16:09→20:50)
--- NOTE | 2019-03-20 17:48 | PDOC PROGRESS REPORT ---
Subjective Progress Note for:: 03/20/19 Subjective:: 03.20.19: Patient extubated successfully 03.19.19: Patient has had an uneventful past 12 hours. He is breathing more comfortably and appears to be tolerating the initiation of sildenafil and digoxin. There has been no hypoxic events and no worsening of her respiratory failure. As noted yesterday a lengthy family meeting was carried out to discuss goals and plans of care. The patient's son feels that she would be reluctant to have a tracheostomy and he has been concerned about her quality. This is juxtaposed to her sisters and other family members opinion that she would want a tracheostomy. Patient met suitability for SBT and sustained adequate ventilation and oxygenation culminating in the ability to liberate from the ventilator this afternoon. He has been resting comfortably but failed her swallowing evaluation. He was extubated to high flow. 03.18.19: Patient had uneventful evening. Started on Seroquel for vent agitation and anxiety. I/O shows an negative balance and her IV fluids were discontinued on rounds yesterday. She was started on steroids. It appears that as her steroids are being weaned she has a recrudescence of exacerbation of COPD. She had also been on once daily Sildenafil. 03.17.19: Patient remains sedated on ventilator. Did not tolerate ventilator wean yesterday and had high RSBI. Repeat attempt throughout the day was unsuccessful. Only being evaluated for LTAC. Reason For Visit: ACUTE RESPIRATORY FAILURE WITH HYPOXIA AND Physical Exam Vital Signs: Temp Pulse Resp BP Pulse Ox 99.7 F 81 8 L 158/78 H 97 03/19/19 16:00 03/20/19 04:13 03/20/19 06:32 03/20/19 06:32 03/20/19 06:32 Intake & Output 03/19/19 03/20/19 03/21/19 06:59 06:59 06:59 Intake Total 2056 375 Output Total 930 1445 Balance 1126 -1070 Weight 74.1 kg 73.3 kg Results Laboratory Results: 03/20/19 03:56 03/19/19 03:45 03/19/19 03/19/19 03/19/19 03:45 03:45 07:40 WBC 10.9 H RBC 2.92 L Hgb 9.3 L Hct 27.9 L MCV 96 MCH 32.0 MCHC 33.4 RDW 16.4 H Plt Count 475 H Seg Neutrophils % Not Reportable Carbonic Acid 1.54 H HCO3/H2CO3 Ratio 20:1 ABG pH 7.41 ABG pCO2 51.3 H ABG pO2 81.1 ABG HCO3 32.0 H ABG O2 Saturation 95.9 ABG Base Excess 6.5 FiO2 40% Sodium 140.7 Potassium 4.2 Chloride 104 Carbon Dioxide 31 H Anion Gap 6 BUN 15 Creatinine 0.90 Est GFR ( Amer) > 60 Glucose 133 H Calcium 9.4 Phosphorus 3.3 Magnesium 2.1 03/19/19 03/19/19 03/20/19 13:05 18:30 03:56 WBC 10.9 H RBC 3.17 L Hgb 10.1 L Hct 30.3 L MCV 96 MCH 31.8 MCHC 33.3 RDW 16.3 H Plt Count 431 Seg Neutrophils % Not Reportable Carbonic Acid 1.49 H 1.75 H HCO3/H2CO3 Ratio 22:1 19:1 ABG pH 7.45 7.39 ABG pCO2 49.6 H 58.1 H ABG pO2 60.9 L 89.7 ABG HCO3 33.9 H 34.5 H ABG O2 Saturation 92.1 L 96.6 ABG Base Excess 8.8 8.2 FiO2 35% 15L Sodium Potassium Chloride Carbon Dioxide Anion Gap BUN Creatinine Est GFR ( Amer) Glucose Calcium Phosphorus Magnesium 03/20/19 03:56 WBC RBC Hgb Hct MCV MCH MCHC RDW Plt Count Seg Neutrophils % Carbonic Acid HCO3/H2CO3 Ratio ABG pH ABG pCO2 ABG pO2 ABG HCO3 ABG O2 Saturation ABG Base Excess FiO2 Sodium Potassium Chloride Carbon Dioxide Anion Gap BUN Creatinine Est GFR ( Amer) Glucose Calcium Phosphorus 3.9 Magnesium 2.1 03/09/19 03/09/19 03/10/19 18:56 18:56 01:08 Creatine Kinase 52 34 CK-MB (CK-2) 5.90 H Troponin I < 0.012 NT-Pro-B Natriuret Pep 86329 H 03/10/19 03/10/19 03/10/19 01:08 07:30 07:30 Creatine Kinase 33 CK-MB (CK-2) 3.46 2.50 Troponin I < 0.012 0.013 NT-Pro-B Natriuret Pep 03/10/19 03/10/19 14:13 14:13 Creatine Kinase 39 CK-MB (CK-2) 1.43 Troponin I 0.017 NT-Pro-B Natriuret Pep Impressions: Head CT 03/09/19 19:17 IMPRESSION: No acute intracranial abnormalities. KUB X-Ray 03/13/19 00:00 IMPRESSION: NO RADIOGRAPHIC EVIDENCE FOR ACUTE ABDOMINAL DISEASE. Chest X-Ray 03/19/19 06:00 IMPRESSION: STABLE APPEARANCE OF THE CHEST. SUPPORT DEVICES UNCHANGED. Status: Image reviewed by me Assessment & Plan - Diagnosis (1) Acute on chronic respiratory failure with hypoxia and hypercapnia Is this a current diagnosis for this admission?: Yes (2) Moderate to severe pulmonary hypertension Is this a current diagnosis for this admission?: Yes (3) Emphysema of lung Qualifiers: Emphysema type: centrilobular Qualified Code(s): J43.2 - Centrilobular emphysema Is this a current diagnosis for this admission?: Yes (4) Anxiety and depression Is this a current diagnosis for this admission?: Yes - Time Time Spent with patient: 25-34 minutes Total Critical Time (Minutes): 30 - End-of-life and plan discussion Level of Care: ICU Medications reviewed and adjusted accordingly: Yes Anticipated discharge: Acute Rehab Within: within 48 hours - Inpatient Certification Based on my medical assessment, after consideration of the patient's comorbidi ties, presenting symptoms, or acuity I expect that the services needed warrant INPATIENT care.: Yes I certify that my determination is in accordance with my understanding of Nickolas daynamanuel's requirements for reasonable and necessary INPATIENT services [42 CFR 412.3e].: Yes Medical Necessity: Need Close Monitoring Due to Risk of Patient Decompensation, Need For Continuous Telemetry Monitoring, Need for Neurological Checks, Risk of Complication if Not Cared For in Hospital, Risk of Diagnosis Which Will Require Inpatient Eval/Care/Monitoring - Plan Summary Plan Summary: 03.20.19: Patient seen and evaluated by KAMRON Sánchez. I reviewed case and care and agree with plans and findings. Met with patient personally and discussed end-of-life issues. She does state that she would want to be re-intubated if needed. As far as tracheostomy, she is unsure. Discussed the pulmonary hypertension and the willingness of [facility] to consider her for transplant. However, her psychologic profile would need to be evaluated. 03.19.19: Family meeting to discuss plan of care, tracheostomy and patient's wishes was done. The overall theme was patient life quality. Patient has tolerated weaning and liberation from the ventilator. From a respiratory standpoint we will continue the sildenafil and the digoxin. In the next 24 hours we will increase dosing of sildenafil for titration effect. Check digoxin level in 5 days as well. Maintain normal potassium. Patient obviously has pulmonary and critical care deconditioning and will have physical therapy start working with her. Has significant anxiety and will reintroduce her Xanax. We have not used Seroquel secondary to the EKG effects and I am concerned with this while the patient is on digoxin. Extubated to high flow and will transition to BiPAP settings at night. Physical therapy has been ordered for tomorrow As noted below plans have been started for the patient to be evaluated, once discharged at the [place] [facility]. They have recommended prostacyclin therapy at some point however will need to have her follow-up with them prior to starting this. She also may be a candidate for endothelial receptor therapy however will need to measure the effect of the Seroquel. She also is a potential candidate for transplant. We will start to wean her steroids. Patient had significant renal failure on her last admission but now her creatinine is below 1 which is a beneficial finding. I took the opportunity to try to speak to the patient about long-term goals and transplant. She is somewhat excited about the possibility of further care and feels less nihilistic about her prognosis. Assured her of continued supportive care. Have adjusted her beta agonist therapy as well. Multidisciplinary rounds were carried out at bedside. ABCDEF Guidelines addressed for patient care. Orders done or given are not always reflected by the timing of the placement in the chart. This patient requires critical care secondary to: Acute respiratory failure, pulmonary hypertension and the use of mechanical ventilation. Medical power of assistant attorney general is her son. Son was updated. 03.18.19: Patient is slowly improving. Long-term prognosis is still tenuous. We will attempt to begin weaning process again today with improvement in her anxiety and sedation. Maintain a negative fluid balance at this point with judicious monitoring to prevent underfilling of the left ventricle. We may be forced to at least apply some phosphodiesterase inhibition to achieve this. At this point her emphysema is pretty significant and end-stage with oxygen dependency chronically. She now has who class III pulmonary hypertension. Treatment for this entity is only supportive and focuses on improvement in pulmonary function. There is a family history of pulmonary hypertension and her sister is on sildenafil. As noted below no evidence to support an autoimmune phenomena for this patient. He currently is being considered for LTAC, however, the LTAC, given her insurance implications, would require tracheostomy prior to transfer. I had a lengthy discussion with the pulmonary hypertension specialist at [facility] who also is a lung transplant specialist. His name is Dr.Jordan Chapis blanc and his cell phone number is [phone]. We did discuss some options given this patient's condition. She initially had minimal response to milrinone on her last admission. I did discuss with her son that there appears to have been some improvement when she was placed on sildenafil however he could not qualify or quantify how much. Given the fact that class III pulmonary hypertension is as noted above related most often to lung disease I queried the specialist regarding the reintroduction of sildenafil and possibly digoxin to offload the right ventricle. He felt that both were an excellent idea and would have recommended this as well. Consideration for He also would like her to be considered for transplant. Attempt to wean today and will meet with the family to discuss our plans. I sincerest concern is that we offer the optimal care. She is currently not a candidate for acute transplant nor ECMO. Plan is to liberate from the ventilator if possible and have her follow-up as an outpatient with Dr. Centeno at [facility]. Had extensive meeting with extended family today and discussed plan of care and her options. 03.17.19: Patient has significant pulmonary hypertension that was not ameliorated by the use of milrinone. She had been placed on sildenafil but had a 20 mg daily dose. It is unlikely that this had any attributable treatment effect. Reevaluated the CAT scan done from February. There is significant central lobar emphysema predominantly upper lobe. This is likely congruent with her long- standing smoking history. There is a family history of pulmonary hypertension and there is a question of lupus. Patient's autoimmune work-up is negative. Given her extensive emphysema history I have restarted steroids and will follow her course accordingly. In addition to the above her A1AT is negative Continue supportive care. She is being considered for LTAC. As far as her sedation will start to wean propofol and use Seroquel for vent agitation as well as her depression and anxiety. She also has chronic pain and lying in bed is causing significant discomfort and she endorses this at bedside. 11.13.19: The care of the patient is a dynamic an ongoing process throughout the ICU. Events of the day are captured in a one-time note format in an attempt to describe the last 24 hours.
[2019-03-20] MEDS: ALPRAZOLAM 0.5 MG TABLET PO PRN (22:02)
[2019-03-20] MEDS ORDERED: LORAZEPAM INJ 2 MG/1 ML VIAL IV ONE (23:10)
[2019-03-21 05:05] LABS: HEMATOCRIT 32.2 % (36.0-47.0); HEMOGLOBIN 10.1 g/dL (12.0-15.5); MEAN CORPUSCULAR HEMOGLOBIN 30.4 pg (27.0-33.4); MEAN CORPUSCULAR HGB CONC 31.5 g/dL (32.0-36.0); MEAN CORPUSCULAR VOLUME 97 fl (80-97); PLATELET COUNT 474 10^3/uL (150-450); RED BLOOD COUNT 3.33 10^6/uL (3.72-5.28); RED CELL DISTRIBUTION WIDTH 16.2 % (11.5-14.0); WHITE BLOOD COUNT 13.2 10^3/uL (4.0-10.5)
[2019-03-21 05:06] LABS: BLOOD UREA NITROGEN 21 mg/dL (7-20); CALCIUM 10.1 mg/dL (8.4-10.2); GLUCOSE 92 mg/dL (75-110); PHOSPHORUS 2.7 mg/dL (2.5-4.5); POTASSIUM 3.4 mmol/L (3.6-5.0)
[2019-03-21 05:11] LABS: CHLORIDE 101 mmol/L (98-107)
[2019-03-21 05:18] LABS: ABSOLUTE LYMPHOCYTES# (MANUAL) 1.3 10^3/uL (0.5-4.7); ABSOLUTE MONOCYTES # (MANUAL) 1.2 10^3/uL (0.1-1.4); BAND NEUTROPHILS % (MANUAL) 5 % (3-5); BASOPHILS % (MANUAL) 0 % (0-2); EOSINOPHILS % (MANUAL) 0 % (0-6); LYMPHOCYTES % (MANUAL) 10 % (13-45); MONOCYTES % (MANUAL) 9 % (3-13); SEGMENTED NEUTROPHILS % (MAN) 76 % (42-78); TOTAL CELLS COUNTED 100
[2019-03-21 05:20] LABS: ANISOCYTOSIS 1+; OVALOCYTES SLIGHT; PLATELET COMMENT ADEQUATE; POIKILOCYTOSIS SLIGHT; SCHISTOCYTES SLIGHT; TOXIC GRANULATION SLIGHT; TOXIC VACUOLATION PRESENT
[2019-03-21 05:41] LABS: CARBON DIOXIDE 40 mmol/L (22-30)
[2019-03-21 05:42] LABS: ANION GAP 3 (5-19)
[2019-03-21] MEDS: HEPARIN SOD (PORCINE) 5,000 UNIT/ML 1 ML VIAL SUBCUT SCH ×3 (06:35→22:31)
[2019-03-21] MEDS: METHYLPREDNISOLONE INJ 40 MG/1 ML SDV IV SCH ×2 (06:35→18:21)
[2019-03-21] MEDS: ALBUTEROL SULFATE 0.042% NEB (1.25 MG/3 ML) AMPUL NEB SCH ×4 (08:25→19:50)
[2019-03-21] MEDS: SILDENAFIL CITRATE 20 MG TABLET PO SCH ×4 (09:17→22:31)
[2019-03-21] MEDS: FUROSEMIDE INJ/PF 20 MG/2 ML SDV IV SCH (09:17)
[2019-03-21] MEDS: DIGOXIN 0.125 MG TABLET PO SCH (09:17)
[2019-03-21] MEDS ORDERED: POTASSIUM CHLORIDE 10 MEQ CAPSULE.ER PO ONE (10:16)
[2019-03-21] MEDS: FLUTICASONE/UMECLIDIN/VILANTER 100-62.5-25 MCG/DOSE IH SCH (12:18)
--- NOTE | 2019-03-21 21:10 | PDOC CRITICAL CARE PROG REPORT ---
General Date:: 03/21/19 ICU Day:: 12 Ventilator Day:: 0 Hospital Day:: 12 Events in the past 12 to 24 Hours:: Patient has been weaning on high flow oxygen. The intent is to wean pressure and then the FiO2. Currently she is down to 25 L and 40 to 45% FiO2. Evening she was slightly confused and BiPAP was started. So then a fill is only at 10 mg 3 times daily Review of systems relevant to events:: No further urinary retention see above Reason for ICU Addmission:: Acute on chronic respiratory failure with advanced emphysema and pulmonary hypertension - Medications: Medications reviewed and adjusted accordingly: Yes Vasopressors:: None. On Sildenafil Sedation:: None Physical Exam Vital Signs: Temp Pulse Resp BP Pulse Ox 98.9 F 95 18 181/83 H 99 03/21/19 19:28 03/21/19 19:50 03/21/19 19:50 03/21/19 18:00 03/21/19 19:50 Intake & Output 03/20/19 03/21/19 03/22/19 06:59 06:59 06:59 Intake Total 375 650 Output Total 1445 1293 0 Balance -1070 -1293 650 Weight 73.3 kg 72 kg Weight/Height Weight 72 kg Height 5 ft 3 in Exam: Nontoxic ill chronically ill-appearing no acute distress awake alert oriented x3 Head exam: PRESENT: atraumatic, normocephalic Eye exam: PRESENT: conjunctiva pink, EOMI, PERRLA. ABSENT: nystagmus, scleral icterus Mouth exam: PRESENT: moist, neck supple Neck exam: ABSENT: carotid bruit, JVD, lymphadenopathy, thyromegaly Respiratory exam: PRESENT: clear to auscultation bianca, unlabored. ABSENT: accessory muscle use, retraction, tachypnea, wheezes Cardiovascular exam: PRESENT: RRR, +S1, +S2 Pulses: PRESENT: +1 pedal pulses bilateral GI/Abdominal exam: PRESENT: normal bowel sounds, soft. ABSENT: ascites, dimini shed bowel sounds, distended, guarding, mass, organolmegaly, rebound, tenderness Rectal exam: PRESENT: deferred Gentrourinary exam: ABSENT: indwelling catheter Extremities exam: PRESENT: pedal edema. ABSENT: tenderness Musculoskeletal exam: PRESENT: normal inspection. ABSENT: deformity, dislocatio n Neurological exam: PRESENT: alert, awake, oriented to person, oriented to place, oriented to time, oriented to situation, CN II-XII grossly intact. ABSENT: motor sensory deficit Skin exam: PRESENT: intact, normal color, warm. ABSENT: abrasion, cyanosis, dry, erythema, jaundice, mottled, pallor, petechiae, rash, skin tears, urticaria, vesicles, other Tubes/Lines: ABSENT: Endotracheal Tube, Chest Tube, Central Line, Arterial Catheter, Dialysis catheter, Peg Tube, Nasogastic Tube, Other Laboratory/Radiographs Laboratory Results: 03/21/19 03:43 03/21/19 03:43 03/21/19 03/21/19 03:43 03:43 WBC 13.2 H RBC 3.33 L Hgb 10.1 L Hct 32.2 L MCV 97 MCH 30.4 MCHC 31.5 L RDW 16.2 H Plt Count 474 H Seg Neutrophils % Not Reportable Sodium 144.3 Potassium 3.4 L Chloride 101 Carbon Dioxide 40 H* Anion Gap 3 L BUN 21 H Creatinine 1.01 Est GFR ( Amer) > 60 Glucose 92 Calcium 10.1 Phosphorus 2.7 Magnesium 2.1 03/09/19 03/09/19 03/10/19 18:56 18:56 01:08 Creatine Kinase 52 34 CK-MB (CK-2) 5.90 H Troponin I < 0.012 NT-Pro-B Natriuret Pep 13438 H 03/10/19 03/10/19 03/10/19 01:08 07:30 07:30 Creatine Kinase 33 CK-MB (CK-2) 3.46 2.50 Troponin I < 0.012 0.013 NT-Pro-B Natriuret Pep 03/10/19 03/10/19 14:13 14:13 Creatine Kinase 39 CK-MB (CK-2) 1.43 Troponin I 0.017 NT-Pro-B Natriuret Pep Impressions: Head CT 03/09/19 19:17 IMPRESSION: No acute intracranial abnormalities. KUB X-Ray 03/13/19 00:00 IMPRESSION: NO RADIOGRAPHIC EVIDENCE FOR ACUTE ABDOMINAL DISEASE. Chest X-Ray 03/19/19 06:00 IMPRESSION: STABLE APPEARANCE OF THE CHEST. SUPPORT DEVICES UNCHANGED. All labs, radiographs, diagnostic studies and EKGs were personally reviewed: Yes In addition, reports of radiographic and diagnostic studies were read: Yes Assessment and Plan - Diagnosis (1) Acute on chronic respiratory failure with hypoxia and hypercapnia Is this a current diagnosis for this admission?: Yes (2) Moderate to severe pulmonary hypertension Is this a current diagnosis for this admission?: Yes (3) Emphysema of lung Qualifiers: Emphysema type: centrilobular Qualified Code(s): J43.2 - Centrilobular emphysema Is this a current diagnosis for this admission?: Yes (4) Urinary retention Is this a current diagnosis for this admission?: Yes (5) Anxiety and depression Is this a current diagnosis for this admission?: Yes (6) Chronic pain disorder Is this a current diagnosis for this admission?: Yes (7) Anxiety and depression Is this a current diagnosis for this admission?: Yes Plan Summary: 03.21.19: Patient is currently undergoing a sildenafil titration trial. We are also weaning her FiO2. Appears to tire later in the evening and we have instituted BiPAP to prevent hypercarbia. Continue to follow her hemodynamics with the titration. I have increased the sildenafil to 20 mg 3 times daily. We are slowly weaning steroids. This attempt to improve her situation is to palliate her emphysema and resulting pulmonary hypertension. We have discussed this case with the [facility] service who also happens to be the transplant service. They are in agreement with the digoxin and sildenafil together. Continue to control pain and anxiety. Continue current treatment of emphysema. I have asked for digoxin level on Sunday which would give us approximately 4-5 half-lives. Will increase if the levels are low. Currently her FiO2 is at 45% her pressures are of down on the high flow 25 down from 45. Attempt is to try to wean her off high flow completely so that she can be discharged from the ICU on nasal cannula Multidisciplinary rounds were carried out at bedside. ABCDEF Guidelines addressed for patient care. Orders done or given are not always reflected by the timing of the placement in the chart. This patient requires critical care secondary to: Acute respiratory failure, pulmonary hypertension and the use of High Flow Oxygen Delivery device. Medical power of civil litigation attorney is her son. Son has been updated 03.20.19 Discussion this morning and again this afternoon had with patient regarding code status. She is currently interested in remaining full code but is reluctant to undergo tracheostomy if needed. Neuro: Continue Xanax for chronic anxiety. No other neuralgic issues. Pulm: Remains on Sildenafil for pulmonary hypertension. LABA/LAMA/ICS started and Duonebs changed to Albuterol only q4h. Remains on Solu-Medrol 30mg q12 and will be weaned to 20mg tomorrow. She remains on high flow nasal cannula. FiO2: 48%, Flow: 40lpm. Her SpO2 remains in the high 90s to 100%. Plan is to wean flow and then FiO2 as tolerated to maintain SpO2 90-95%. C/V: Mildly hypertensive and tachycardic which is likely her baseline. Continue Hydralazine PRN. Digoxin for right sided cardiac output given Pulm HTN. Will check Digoxin level on 03/24. Renal/: Renal panel within normal limits. Normal Urine output. Delgado discontinued. GI: Swallowing better today and has had diet advanced to mechanical soft. No bowel movement documented. ID: No signs of infection. Afebrile, normal WBC. Historic Blood and sputum cultures were negative. 03.19.19: Family meeting to discuss plan of care, tracheostomy and patient's wishes was done. The overall theme was patient life quality. Patient has tolerated weaning and liberation from the ventilator. From a respiratory standpoint we will continue the sildenafil and the digoxin. In the next 24 hours we will increase dosing of sildenafil for titration effect. Check digoxin level in 5 days as well. Maintain normal potassium. Patient obviously has pulmonary and critical care deconditioning and will have physical therapy start working with her. Has significant anxiety and will reintroduce her Xanax. We have not used Seroquel secondary to the EKG effects and I am concerned with this while the patient is on digoxin. Extubated to high flow and will transition to BiPAP settings at night. Physical therapy has been ordered for tomorrow As noted below plans have been started for the patient to be evaluated, once discharged at the [facility] program. They have recommended prostacyclin therapy at some point however will need to have her follow-up with them prior to starting this. She also may be a candidate for endothelial receptor therapy however will need to measure the effect of the Seroquel. She also is a potential candidate for transplant. We will start to wean her steroids. Patient had significant renal failure on her last admission but now her creatinine is below 1 which is a beneficial finding. I took the opportunity to try to speak to the patient about long-term goals and transplant. She is somewhat excited about the possibility of further care and feels less nihilistic about her prognosis. Assured her of continued supportive care. Have adjusted her beta agonist therapy as well. 03.18.19: Patient is slowly improving. Long-term prognosis is still tenuous. We will attempt to begin weaning process again today with improvement in her anxiety and sedation. Maintain a negative fluid balance at this point with judicious monitoring to prevent underfilling of the left ventricle. We may be forced to at least apply some phosphodiesterase inhibition to achieve this. At this point her emphysema is pretty significant and end-stage with oxygen dependency chronically. She now has who class III pulmonary hypertension. Treatment for this entity is only supportive and focuses on improvement in pulmonary function. There is a family history of pulmonary hypertension and her sister is on sildenafil. As noted below no evidence to support an autoimmune phenomena for this patient. He currently is being considered for LTAC, however, the LTAC, given her insu mariola implications, would require tracheostomy prior to transfer. I had a lengthy discussion with the pulmonary hypertension specialist at [facility] who also is a lung transplant specialist. His name is Dr.Jordan Centeno and his cell phone number is [phone]. We did discuss some options given this patient's condition. She initially had minimal response to milrinone on her last admission. I did discuss with her son that there appears to have been some improvement when she was placed on sildenafil however he could not qualify or quantify how much. Given the fact that class III pulmonary hypertension is as noted above related most often to lung disease I queried the specialist regarding the reintroduction of sildenafil and possibly digoxin to offload the right ventricle. He felt that both were an excellent idea and would have recommended this as well. Consideration for He a lso would like her to be considered for transplant. Attempt to wean today and will meet with the family to discuss our plans. I sincerest concern is that we offer the optimal care. She is currently not a candidate for acute transplant nor ECMO. Plan is to liberate from the ventilator if possible and have her follow-up as an outpatient with Dr. Centeno at [facility]. Had extensive meeting with extended family today and discussed plan of care and her options. 03.17.19: Patient has significant pulmonary hypertension that was not ameliorated by the use of milrinone. She had been placed on sildenafil but had a 20 mg daily dose. It is unlikely that this had any attributable treatment effect. Reevaluated the CAT scan done from February. There is significant central lobar emphysema predominantly upper lobe. This is likely congruent with her long- standing smoking history. There is a family history of pulmonary hypertension and there is a question of lupus. Patient's autoimmune work-up is negative. Given her extensive emphysema history I have restarted steroids and will follow her course accordingly. In addition to the above her A1AT is negative Continue supportive care. She is being considered for LTAC. As far as her sedation will start to wean propofol and use Seroquel for vent agitation as well as her depression and anxiety. She also has chronic pain and lying in bed is causing significant discomfort and she endorses this at bedside. 11.13.19: The care of the patient is a dynamic an ongoing process throughout the ICU. Events of the day are captured in a one-time note format in an attempt to describe the last 24 hours. Critical Time Critical Time (minutes): 38 Level of Care: ICU Anticipated discharge: Acute Rehab Within: within 48 hours -: 1. The care of a critical patient is a dynamic process. This note is a repr esentative synopsis but static in nature. The timeframe for treatments given in order is not necessary the actual time these treatments may have been done. 2. This patient requires critical care secondary to ongoing requirements for therapy not offered or safe outside the critical care environment. Transfer to a lower level of care with altered life or limb morbidity and mortality. 3. Multidisciplinary rounds completed. 4. ABCDE bundle addressed. 5. LAURYN is son
[2019-03-21] MEDS: ALPRAZOLAM 0.5 MG TABLET PO PRN (22:31)
[2019-03-22 05:51] LABS: HEMATOCRIT 31.7 % (36.0-47.0); HEMOGLOBIN 10.1 g/dL (12.0-15.5); MEAN CORPUSCULAR HEMOGLOBIN 30.7 pg (27.0-33.4); MEAN CORPUSCULAR HGB CONC 31.7 g/dL (32.0-36.0); MEAN CORPUSCULAR VOLUME 97 fl (80-97); PLATELET COUNT 532 10^3/uL (150-450); RED BLOOD COUNT 3.28 10^6/uL (3.72-5.28); RED CELL DISTRIBUTION WIDTH 15.8 % (11.5-14.0); WHITE BLOOD COUNT 18.4 10^3/uL (4.0-10.5)
[2019-03-22] MEDS: METHYLPREDNISOLONE INJ 40 MG/1 ML SDV IV SCH ×2 (06:04→19:19)
[2019-03-22] MEDS: HEPARIN SOD (PORCINE) 5,000 UNIT/ML 1 ML VIAL SUBCUT SCH ×3 (06:04→22:05)
[2019-03-22 06:08] LABS: ANION GAP 6 (5-19); BLOOD UREA NITROGEN 18 mg/dL (7-20); CALCIUM 10.5 mg/dL (8.4-10.2); CARBON DIOXIDE 36 mmol/L (22-30); CHLORIDE 103 mmol/L (98-107); GLUCOSE 104 mg/dL (75-110); PHOSPHORUS 2.7 mg/dL (2.5-4.5)
[2019-03-22 06:27] LABS: ABSOLUTE MONOCYTES # (MANUAL) 2.2 10^3/uL (0.1-1.4); ANISOCYTOSIS 1+; BASOPHILS % (MANUAL) 0 % (0-2); EOSINOPHILS % (MANUAL) 0 % (0-6); LYMPHOCYTES % (MANUAL) 11 % (13-45); METAMYELOCYTES % (MANUAL) 1 % (0-1); MONOCYTES % (MANUAL) 12 % (3-13); PLATELET COMMENT INCREASED; SEGMENTED NEUTROPHILS % (MAN) 76 % (42-78); TOTAL CELLS COUNTED 100
--- NOTE | 2019-03-22 08:26 | RADIOLOGY REPORT (SQ) ---
EXAM DESCRIPTION: CHEST SINGLE VIEW COMPLETED DATE/TIME: 03/22/2019 6:02 am REASON FOR STUDY: respiratory failure COMPARISON: Chest film 03/19/2019, 03/10/2019, 03/09/2019 CT chest 02/16/2019 EXAM PARAMETERS: NUMBER OF VIEWS: One view. TECHNIQUE: Single frontal radiographic view of the chest acquired. RADIATION DOSE: NA LIMITATIONS: None. FINDINGS: LUNGS AND PLEURA: Upper lobes are hyperlucent from obstructive disease. Mid and lower juancho gs are free of focal infiltrates. No gross pulmonary edema. No pleural effusion or pneumothorax. MEDIASTINUM AND HILAR STRUCTURES: No masses. Contour normal. HEART AND VASCULAR STRUCTURES: Stable mild cardiomegaly BONES: No acute findings. HARDWARE: No endotracheal or nasogastric tube OTHER: No other significant finding. IMPRESSION: No acute infiltrates. Lucent upper lobes from obstructive disease. Stable mild cardiom egaly TECHNICAL DOCUMENTATION: JOB ID: [id number] [employer]- All Rights Reserved Reading location - IP/workstation name: [email or web address]
[2019-03-22] MEDS: ALBUTEROL SULFATE 0.042% NEB (1.25 MG/3 ML) AMPUL NEB SCH ×4 (08:36→20:21)
[2019-03-22] MEDS: SILDENAFIL CITRATE 20 MG TABLET PO SCH ×3 (08:51→19:19)
[2019-03-22] MEDS: FLUTICASONE/UMECLIDIN/VILANTER 100-62.5-25 MCG/DOSE IH SCH (09:12)
[2019-03-22] MEDS: FUROSEMIDE INJ/PF 20 MG/2 ML SDV IV SCH (09:12)
[2019-03-22] MEDS: DIGOXIN 0.125 MG TABLET PO SCH (09:12)
[2019-03-22] MEDS: ALPRAZOLAM 0.5 MG TABLET PO PRN ×3 (09:13→19:19)
[2019-03-23] MEDS: HEPARIN SOD (PORCINE) 5,000 UNIT/ML 1 ML VIAL SUBCUT SCH ×3 (07:45→22:47)
[2019-03-23] MEDS: METHYLPREDNISOLONE INJ 40 MG/1 ML SDV IV SCH ×2 (07:46→17:58)
[2019-03-23] MEDS: ALBUTEROL SULFATE 0.042% NEB (1.25 MG/3 ML) AMPUL NEB SCH ×4 (08:33→20:29)
[2019-03-23] MEDS: ALPRAZOLAM 0.5 MG TABLET PO PRN ×2 (09:45→22:47)
[2019-03-23] MEDS: DIGOXIN 0.125 MG TABLET PO SCH (09:45)
[2019-03-23] MEDS: SILDENAFIL CITRATE 20 MG TABLET PO SCH ×3 (09:45→18:00)
[2019-03-23] MEDS: FUROSEMIDE INJ/PF 20 MG/2 ML SDV IV SCH (09:45)
[2019-03-23] MEDS: FLUTICASONE/UMECLIDIN/VILANTER 100-62.5-25 MCG/DOSE IH SCH (09:46)
--- NOTE | 2019-03-23 11:02 | PDOC CRITICAL CARE PROG REPORT ---
General Date:: 03/22/19 ICU Day:: 13 Hospital Day:: 13 Events in the past 12 to 24 Hours:: Continued stability of bipap at night high flow during the day. Occassional con fusion. Review of systems relevant to events:: No dyspnea, abd pain constipation. Reason for ICU Addmission:: Acute on chronic respiratory failure with advanced emphysema and pulmonary hypertension - Medications: Medications reviewed and adjusted accordingly: Yes Vasopressors:: No Sedation:: No Physical Exam Vital Signs: Temp Pulse Resp BP Pulse Ox 98.0 F 96 21 H 133/73 H 99 03/23/19 08:00 03/23/19 08:33 03/23/19 10:00 03/23/19 09:40 03/23/19 10:00 Intake & Output 03/22/19 03/23/19 03/24/19 06:59 06:59 06:59 Intake Total 650 1800 Output Total 300 300 0 Balance 350 1500 0 Weight 71 kg 74.8 kg Weight/Height Weight 74.8 kg Height 5 ft 3 in General appearance: PRESENT: no acute distress, well-developed, well-nourished Exam: Confused at times Eye exam: PRESENT: conjunctiva pink, EOMI, PERRLA. ABSENT: scleral icterus Ear exam: PRESENT: normal external ear exam Mouth exam: PRESENT: moist, tongue midline Respiratory exam: PRESENT: clear to auscultation bianca, decreased breath sounds, unlabored Cardiovascular exam: PRESENT: tachycardia Vascular exam: PRESENT: normal capillary refill GI/Abdominal exam: PRESENT: normal bowel sounds, soft. ABSENT: distended, guarding, mass, organolmegaly, rebound, tenderness Rectal exam: PRESENT: deferred Gentrourinary exam: PRESENT: indwelling catheter Extremities exam: PRESENT: full ROM Musculoskeletal exam: PRESENT: full ROM, normal inspection Neurological exam: PRESENT: alert, altered, awake, oriented to person, oriented to place, CN II-XII grossly intact Psychiatric exam: PRESENT: anxious Focused psych exam: PRESENT: delusional Skin exam: PRESENT: dry, intact, warm. ABSENT: cyanosis, rash Laboratory/Radiographs Laboratory Results: 03/22/19 05:35 03/22/19 05:35 03/09/19 03/09/19 03/10/19 18:56 18:56 01:08 Creatine Kinase 52 34 CK-MB (CK-2) 5.90 H Troponin I < 0.012 NT-Pro-B Natriuret Pep 01699 H 03/10/19 03/10/19 03/10/19 01:08 07:30 07:30 Creatine Kinase 33 CK-MB (CK-2) 3.46 2.50 Troponin I < 0.012 0.013 NT-Pro-B Natriuret Pep 03/10/19 03/10/19 14:13 14:13 Creatine Kinase 39 CK-MB (CK-2) 1.43 Troponin I 0.017 NT-Pro-B Natriuret Pep Impressions: Head CT 03/09/19 19:17 IMPRESSION: No acute intracranial abnormalities. KUB X-Ray 03/13/19 00:00 IMPRESSION: NO RADIOGRAPHIC EVIDENCE FOR ACUTE ABDOMINAL DISEASE. Chest X-Ray 03/22/19 06:00 IMPRESSION: No acute infiltrates. Lucent upper lobes from obstructive disease. Stable mild cardiomegaly All labs, radiographs, diagnostic studies and EKGs were personally reviewed: Yes In addition, reports of radiographic and diagnostic studies were read: Yes Assessment and Plan - Diagnosis (1) Acute on chronic congestive heart failure Qualifiers: Heart failure type: right-sided Qualified Code(s): I50.813 - Acute on chronic right heart failure Is this a current diagnosis for this admission?: Yes Plan: She has a chronic element of R heart failure with periodic exacerbations based on lung disease. (2) Acute respiratory failure with hypoxia and hypercapnia Is this a current diagnosis for this admission?: Yes Plan: She seems to have stablized on bipap and high flow. Too weak to get OOB. Continue PT. Not a candidate for acute rehab with confusion. I dont see her doing 3 hours fo rehab/day. Therefore, right jefe, SNF rehab is our option. (3) COPD (chronic obstructive pulmonary disease) Qualifiers: COPD type: unspecified COPD Qualified Code(s): J44.9 - Chronic obstructive pulmonary disease, unspecified Is this a current diagnosis for this admission?: Yes Plan: Stable, no wheezing. (4) Chronic kidney disease, stage 3 (moderate) Is this a current diagnosis for this admission?: Yes Plan: Resolved. GFR > 60. (5) Severe pulmonary arterial systolic hypertension Is this a current diagnosis for this admission?: Yes Plan: Se certainly qualifies for delirium at this point. Her medical condition has stabilized. She has slept well last 2 nights. However she is immoblie, in the same bed in a room without windows and limited access to family or familiar voices. The best treatment is to avoid benzodiazepines and get her re-oriented. Plan Summary: f she remains stable try to transfer from the ICU within the next 24 hours. Critical Time Critical Time (minutes): 35 Level of Care: ICU Anticipated discharge: SNF Within: Other -: 1. The care of a critical patient is a dynamic process. This note is a direct customer service representative synopsis but static in nature. The timeframe for treatments given in order is not necessary the actual time these treatments may have been done. 2. This patient requires critical care secondary to ongoing requirements for therapy not offered or safe outside the critical care environment. Transfer to a lower level of care with altered life or limb morbidity and mortality. 3. Multidisciplinary rounds completed. 4. ABCDE bundle addressed.
--- NOTE | 2019-03-23 11:08 | PDOC CRITICAL CARE PROG REPORT ---
General Date:: 03/23/19 ICU Day:: 14 Hospital Day:: 14 Events in the past 12 to 24 Hours:: No real change. Still delusional. Review of systems relevant to events:: No SOB. No CP. Weak Reason for ICU Addmission:: Acute on chronic respiratory failure with advanced emphysema and pulmonary hypertension - Medications: Medications reviewed and adjusted accordingly: Yes Vasopressors:: None Sedation:: None Physical Exam Vital Signs: Temp Pulse Resp BP Pulse Ox 98.0 F 96 21 H 133/73 H 99 03/23/19 08:00 03/23/19 08:33 03/23/19 10:00 03/23/19 09:40 03/23/19 10:00 Intake & Output 03/22/19 03/23/19 03/24/19 06:59 06:59 06:59 Intake Total 650 1800 Output Total 300 300 0 Balance 350 1500 0 Weight 71 kg 74.8 kg Weight/Height Weight 74.8 kg Height 5 ft 3 in General appearance: PRESENT: no acute distress, cooperative Exam: Occassionally confused Head exam: PRESENT: atraumatic, normocephalic Eye exam: PRESENT: conjunctiva pink, EOMI, PERRLA. ABSENT: scleral icterus Ear exam: PRESENT: normal external ear exam Mouth exam: PRESENT: moist, tongue midline Respiratory exam: PRESENT: clear to auscultation bianca, decreased breath sounds. ABSENT: rales, rhonchi, wheezes Cardiovascular exam: PRESENT: tachycardia Pulses: PRESENT: normal dorsalis pedis pul Vascular exam: PRESENT: normal capillary refill GI/Abdominal exam: PRESENT: normal bowel sounds, soft. ABSENT: distended, guarding, mass, organolmegaly, rebound, tenderness Rectal exam: PRESENT: deferred Gentrourinary exam: PRESENT: indwelling catheter Extremities exam: PRESENT: full ROM. ABSENT: calf tenderness, clubbing, pedal edema Musculoskeletal exam: PRESENT: full ROM, normal inspection Neurological exam: PRESENT: alert, altered, awake, oriented to person, oriented to place Psychiatric exam: PRESENT: anxious Skin exam: PRESENT: abrasion Laboratory/Radiographs Laboratory Results: 03/22/19 05:35 03/22/19 05:35 03/09/19 03/09/19 03/10/19 18:56 18:56 01:08 Creatine Kinase 52 34 CK-MB (CK-2) 5.90 H Troponin I < 0.012 NT-Pro-B Natriuret Pep 66875 H 03/10/19 03/10/19 03/10/19 01:08 07:30 07:30 Creatine Kinase 33 CK-MB (CK-2) 3.46 2.50 Troponin I < 0.012 0.013 NT-Pro-B Natriuret Pep 03/10/19 03/10/19 14:13 14:13 Creatine Kinase 39 CK-MB (CK-2) 1.43 Troponin I 0.017 NT-Pro-B Natriuret Pep Impressions: Head CT 03/09/19 19:17 IMPRESSION: No acute intracranial abnormalities. KUB X-Ray 03/13/19 00:00 IMPRESSION: NO RADIOGRAPHIC EVIDENCE FOR ACUTE ABDOMINAL DISEASE. Chest X-Ray 03/22/19 06:00 IMPRESSION: No acute infiltrates. Lucent upper lobes from obstructive disease. Stable mild cardiomegaly All labs, radiographs, diagnostic studies and EKGs were personally reviewed: Yes In addition, reports of radiographic and diagnostic studies were read: Yes Assessment and Plan - Diagnosis (1) Acute on chronic congestive heart failure Qualifiers: Heart failure type: right-sided Qualified Code(s): I50.813 - Acute on chronic right heart failure Is this a current diagnosis for this admission?: Yes Plan: No change. Stable but chronic (2) Acute respiratory failure with hypoxia and hypercapnia Is this a current diagnosis for this admission?: Yes Plan: Stable on bipap at night and high flow 40% during the day. (3) COPD (chronic obstructive pulmonary disease) Qualifiers: COPD type: unspecified COPD Qualified Code(s): J44.9 - Chronic obstructive pulmonary disease, unspecified Is this a current diagnosis for this admission?: Yes Plan: No wheezing. Stable (4) Chronic kidney disease, stage 3 (moderate) Is this a current diagnosis for this admission?: Yes Plan: Resolved (5) Severe pulmonary arterial systolic hypertension Is this a current diagnosis for this admission?: Yes Plan: Continue treatment Plan Summary: With no change and relative stability will try to find a bed on the [facility] to better mobilize and reorient her. Critical Time Critical Time (minutes): 30 Level of Care: IMCU Anticipated discharge: Other - No specific date. -: 1. The care of a critical patient is a dynamic process. This note is a business representative synopsis but static in nature. The timeframe for treatments given in order is not necessary the actual time these treatments may have been done. 2. This patient requires critical care secondary to ongoing requirements for therapy not offered or safe outside the critical care environment. Transfer to a lower level of care with altered life or limb morbidity and mortality. 3. Multidisciplinary rounds completed. 4. ABCDE bundle addressed.
[2019-03-23] MEDS: DOCUSATE SODIUM 100 MG CAPSULE PO SCH (22:47)
[2019-03-24] MEDS: METHYLPREDNISOLONE INJ 40 MG/1 ML SDV IV SCH ×2 (06:38→17:20)
[2019-03-24] MEDS: HEPARIN SOD (PORCINE) 5,000 UNIT/ML 1 ML VIAL SUBCUT SCH ×3 (06:38→21:28)
[2019-03-24] MEDS: ALBUTEROL SULFATE 0.042% NEB (1.25 MG/3 ML) AMPUL NEB SCH ×4 (08:25→21:47)
[2019-03-24] MEDS: SILDENAFIL CITRATE 20 MG TABLET PO SCH ×3 (08:25→17:20)
[2019-03-24] MEDS: DOCUSATE SODIUM 100 MG CAPSULE PO SCH ×2 (10:03→21:28)
[2019-03-24] MEDS: DIGOXIN 0.25 MG TABLET PO SCH (10:03)
[2019-03-24] MEDS: FUROSEMIDE INJ/PF 20 MG/2 ML SDV IV SCH (10:04)
[2019-03-24] MEDS: FLUTICASONE/UMECLIDIN/VILANTER 100-62.5-25 MCG/DOSE IH SCH (10:07)
[2019-03-24 10:23] LABS: MEAN CORPUSCULAR HEMOGLOBIN 30.7 pg (27.0-33.4); MEAN CORPUSCULAR HGB CONC 31.3 g/dL (32.0-36.0); MEAN CORPUSCULAR VOLUME 98 fl (80-97); PLATELET COUNT 407 10^3/uL (150-450); RED BLOOD COUNT 3.27 10^6/uL (3.72-5.28); RED CELL DISTRIBUTION WIDTH 15.8 % (11.5-14.0); WHITE BLOOD COUNT 15.5 10^3/uL (4.0-10.5)
[2019-03-24 10:43] LABS: ALKALINE PHOSPHATASE 72 U/L (38-126); ASPARTATE AMINO TRANSFERASE 29 U/L (14-36); BILIRUBIN,DIRECT 0.1 mg/dL (0.0-0.4); BILIRUBIN,TOTAL 0.4 mg/dL (0.2-1.3); BLOOD UREA NITROGEN 26 mg/dL (7-20); CALCIUM 10.4 mg/dL (8.4-10.2); CHLORIDE 99 mmol/L (98-107); GLUCOSE 144 mg/dL (75-110); PHOSPHORUS 2.6 mg/dL (2.5-4.5); POTASSIUM 3.4 mmol/L (3.6-5.0); TOTAL PROTEIN 7.7 g/dL (6.3-8.2)
[2019-03-24 10:48] LABS: ABSOLUTE LYMPHOCYTES# (MANUAL) 0.6 10^3/uL (0.5-4.7); ABSOLUTE MONOCYTES # (MANUAL) 0.6 10^3/uL (0.1-1.4); BASOPHILS % (MANUAL) 0 % (0-2); EOSINOPHILS % (MANUAL) 0 % (0-6); LYMPHOCYTES % (MANUAL) 4 % (13-45); MONOCYTES % (MANUAL) 4 % (3-13); SEGMENTED NEUTROPHILS % (MAN) 92 % (42-78); TOTAL CELLS COUNTED 100
[2019-03-24 10:50] LABS: ANISOCYTOSIS SLIGHT; PLATELET COMMENT ADEQUATE
[2019-03-24 11:24] LABS: ANION GAP 4 (5-19)
[2019-03-24 11:25] LABS: CARBON DIOXIDE 40 mmol/L (22-30)
[2019-03-24] MEDS ORDERED: POTASSIUM CHLORIDE 10 MEQ CAPSULE.ER PO ONE (13:16)
--- NOTE | 2019-03-24 15:41 | PDOC CRITICAL CARE PROG REPORT ---
General Date:: 03/24/19 ICU Day:: 15 Ventilator Day:: 0 Hospital Day:: 15 Events in the past 12 to 24 Hours:: The patient is being transitioned to nasal cannula oxygen weaned from high flow. She tolerated her BiPAP last night. With the introduction of a higher dose of sildenafil she appears to be improving. No hemodynamic instability has occurred Reason for ICU Addmission:: Acute on chronic respiratory failure with advanced emphysema and pulmonary hypertension - Medications: Medications reviewed and adjusted accordingly: Yes Vasopressors:: None Sedation:: None Physical Exam Vital Signs: Temp Pulse Resp BP Pulse Ox 97.9 F 95 20 140/68 H 99 03/24/19 07:37 03/24/19 07:37 03/24/19 07:37 03/24/19 07:37 03/24/19 07:37 Intake & Output 03/23/19 03/24/19 03/25/19 06:59 06:59 06:59 Intake Total 1800 490 Output Total 300 500 Balance 1500 -10 Weight 74.8 kg 70 kg Weight/Height Weight 70 kg Height 5 ft 3 in General appearance: PRESENT: no acute distress, cooperative, well-developed, well-nourished Exam: Nontoxic ill appearing 63-year-old black female no acute distress Eye exam: PRESENT: conjunctiva pink, EOMI, PERRLA. ABSENT: conjunctival injection, nystagmus, scleral icterus Mouth exam: PRESENT: dry mucosa, neck supple Neck exam: ABSENT: carotid bruit, JVD, lymphadenopathy, thyromegaly, tracheal deviation Respiratory exam: PRESENT: clear to auscultation bianca, unlabored. ABSENT: accessory muscle use, tachypnea, wheezes Cardiovascular exam: PRESENT: RRR, +S1, +S2. ABSENT: systolic murmur, tachycardia Pulses: PRESENT: +2 pedal pulses bilateral GI/Abdominal exam: PRESENT: normal bowel sounds, soft. ABSENT: ascites, distended, firm, guarding, mass, organolmegaly, rebound, rigid, tenderness Rectal exam: PRESENT: deferred Gentrourinary exam: ABSENT: indwelling catheter Extremities exam: PRESENT: pedal edema Musculoskeletal exam: PRESENT: normal inspection. ABSENT: deformity, dislocation Neurological exam: PRESENT: alert, awake, oriented to person, oriented to place, oriented to time, oriented to situation, CN II-XII grossly intact. ABSENT: motor sensory deficit Psychiatric exam: PRESENT: appropriate affect Focused psych exam: ABSENT: psychomotor agitation, restlessness Skin exam: PRESENT: intact, normal color. ABSENT: cyanosis, erythema, mottled, pallor, petechiae, urticaria Tubes/Lines: ABSENT: Endotracheal Tube, Chest Tube, Central Line, Arterial Catheter, Dialysis catheter, Peg Tube, Nasogastic Tube, Other Laboratory/Radiographs Laboratory Results: 03/22/19 05:35 03/22/19 05:35 03/09/19 03/09/19 03/10/19 18:56 18:56 01:08 Creatine Kinase 52 34 CK-MB (CK-2) 5.90 H Troponin I < 0.012 NT-Pro-B Natriuret Pep [id number] H 03/10/19 03/10/19 03/10/19 01:08 07:30 07:30 Creatine Kinase 33 CK-MB (CK-2) 3.46 2.50 Troponin I < 0.012 0.013 NT-Pro-B Natriuret Pep 03/10/19 03/10/19 14:13 14:13 Creatine Kinase 39 CK-MB (CK-2) 1.43 Troponin I 0.017 NT-Pro-B Natriuret Pep Impressions: Head CT 03/09/19 19:17 IMPRESSION: No acute intracranial abnormalities. KUB X-Ray 03/13/19 00:00 IMPRESSION: NO RADIOGRAPHIC EVIDENCE FOR ACUTE ABDOMINAL DISEASE. Chest X-Ray 03/22/19 06:00 IMPRESSION: No acute infiltrates. Lucent upper lobes from obstructive disease. Stable mild cardiomegaly All labs, radiographs, diagnostic studies and EKGs were personally reviewed: Yes In addition, reports of radiographic and diagnostic studies were read: Yes Assessment and Plan - Diagnosis (1) Acute on chronic respiratory failure with hypoxia and hypercapnia Is this a current diagnosis for this admission?: Yes Plan: Much improved. (2) Moderate to severe pulmonary hypertension Is this a current diagnosis for this admission?: Yes Plan: Acute on chronic. Subjective improvement in symptoms. 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 See below (4) Urinary retention Is this a current diagnosis for this admission?: Yes Plan: Resolved (5) Anxiety and depression Is this a current diagnosis for this admission?: Yes Plan: Improved. Present on admission (6) Chronic pain disorder Is this a current diagnosis for this admission?: Yes Plan: Improved. Present on admission (7) Anxiety and depression Is this a current diagnosis for this admission?: Yes Plan Summary: Patient's hypoxia has improved and we have transitioned her to nasal cannula oxygen. This has been weaning throughout the day and she is now on 2 to 3 L nasal cannula. This demonstrates both an objective and subjective improvement in patient's symptoms while on higher dose sildenafil. She underwent physical therapy and was able to get up and get into the chair. This represents subjective improvement. Her digoxin level was less than 0.4 and have increased her dosing. Plan is to downgrade patient to floor status. As far as her steroid dosing will continue at 20 mg twice a day and wean by 5 to 10 mg slowly. She may have a steroid responsive disease process and will need to be vigilant to follow this. Have transition to p.o. Lasix Patient will need to be maintained on BiPAP at night and appropriate adjudication of her blood gas including PCO2 will need to be evaluated while on sildenafil. Would suggest pulmonary consult while patient on the floor. Will discuss with her physician team when transfer completed. Patient admitted under hospitalists service after discontinuing care provided by Dr. Latif. Critical Time Critical Time (minutes): 40 Level of Care: ICU Anticipated discharge: Home with Homehealth Within: within 48 hours -: 1. The care of a critical patient is a dynamic process. This note is a bank representative synopsis but static in nature. The timeframe for treatments given in order is not necessary the actual time these treatments may have been done. 2. This patient requires critical care secondary to ongoing requirements for therapy not offered or safe outside the critical care environment. Transfer to a lower level of care with altered life or limb morbidity and mortality. 3. Multidisciplinary rounds completed. 4. ABCDE bundle addressed with multidisciplinary rounds. 5. MPOA: Son
[2019-03-24] MEDS: ALPRAZOLAM 0.5 MG TABLET PO PRN (20:03)
[2019-03-24 23:13] LABS: ANION GAP 6 (5-19); BLOOD UREA NITROGEN 27 mg/dL (7-20); CALCIUM 10.3 mg/dL (8.4-10.2); CARBON DIOXIDE 39 mmol/L (22-30); CHLORIDE 98 mmol/L (98-107); GLUCOSE 196 mg/dL (75-110); POTASSIUM 4.2 mmol/L (3.6-5.0)
[2019-03-25 05:49] LABS: HEMATOCRIT 32.9 % (36.0-47.0); HEMOGLOBIN 10.6 g/dL (12.0-15.5); MEAN CORPUSCULAR HEMOGLOBIN 31.3 pg (27.0-33.4); MEAN CORPUSCULAR HGB CONC 32.2 g/dL (32.0-36.0); MEAN CORPUSCULAR VOLUME 97 fl (80-97); PLATELET COUNT 336 10^3/uL (150-450); RED BLOOD COUNT 3.39 10^6/uL (3.72-5.28); RED CELL DISTRIBUTION WIDTH 15.8 % (11.5-14.0); WHITE BLOOD COUNT 14.6 10^3/uL (4.0-10.5)
[2019-03-25 06:08] LABS: ABSOLUTE MONOCYTES # (MANUAL) 0.9 10^3/uL (0.1-1.4); BAND NEUTROPHILS % (MANUAL) 3 % (3-5); BASOPHILS % (MANUAL) 0 % (0-2); EOSINOPHILS % (MANUAL) 0 % (0-6); LYMPHOCYTES % (MANUAL) 7 % (13-45); MONOCYTES % (MANUAL) 6 % (3-13); SEGMENTED NEUTROPHILS % (MAN) 84 % (42-78); TOTAL CELLS COUNTED 100
[2019-03-25 06:09] LABS: ANISOCYTOSIS 1+; PLATELET COMMENT ADEQUATE; POLYCHROMASIA 1+
[2019-03-25 06:11] LABS: ANION GAP 5 (5-19); BLOOD UREA NITROGEN 27 mg/dL (7-20); CALCIUM 9.9 mg/dL (8.4-10.2); CARBON DIOXIDE 39 mmol/L (22-30); CHLORIDE 98 mmol/L (98-107); GLUCOSE 131 mg/dL (75-110); PHOSPHORUS 3.1 mg/dL (2.5-4.5)
[2019-03-25] MEDS: METHYLPREDNISOLONE INJ 40 MG/1 ML SDV IV SCH (06:15)
[2019-03-25] MEDS: HEPARIN SOD (PORCINE) 5,000 UNIT/ML 1 ML VIAL SUBCUT SCH ×3 (06:15→22:26)
[2019-03-25] MEDS: ALBUTEROL SULFATE 0.042% NEB (1.25 MG/3 ML) AMPUL NEB SCH ×4 (07:42→21:25)
[2019-03-25] MEDS: MAGNESIUM SULFATE/D5W 1 GM/100 ML RTUPB IV SCH ×3 (09:29→12:28)
[2019-03-25] MEDS: FLUTICASONE/UMECLIDIN/VILANTER 100-62.5-25 MCG/DOSE IH SCH (09:29)
[2019-03-25] MEDS: FUROSEMIDE 20 MG TABLET PO SCH (09:30)
[2019-03-25] MEDS: DOCUSATE SODIUM 100 MG CAPSULE PO SCH ×2 (09:30→22:26)
[2019-03-25] MEDS: SILDENAFIL CITRATE 20 MG TABLET PO SCH ×3 (09:31→18:05)
[2019-03-25] MEDS: DIGOXIN 0.25 MG TABLET PO SCH (09:31)
[2019-03-25] MEDS: BUSPIRONE HCL 10 MG TABLET PO SCH ×2 (10:58→22:26)
[2019-03-25] MEDS: ESCITALOPRAM OXALATE 10 MG TABLET PO SCH (10:58)
[2019-03-25] MEDS: PREDNISONE 10 MG TABLET PO SCH ×2 (10:58→18:04)
--- NOTE | 2019-03-25 12:15 | PDOC CRITICAL CARE PROG REPORT ---
General Date:: 03/25/19 ICU Day:: 17 Ventilator Day:: 0 Hospital Day:: 17 Events in the past 12 to 24 Hours:: 03.25.19: Patient has had no dyspnea nor chest pain with the increase in sildenafil. Hemodynamics have not been labile and subjectively she feels better. She was not out of bed today nor has physical therapy been by for any objective measurements. 03.24.19: The patient is being transitioned to nasal cannula oxygen weaned from high flow. She tolerated her BiPAP last night. With the introduction of a higher dose of sildenafil she appears to be improving. No hemodynamic instabi lity has occurred Review of systems relevant to events:: She denies fever, chills, no dysuria, no abdominal pain, she has no invasive catheters or Delgado catheters in. Reason for ICU Addmission:: Acute on chronic respiratory failure with advanced e mphysema and pulmonary hypertension - Medications: Medications reviewed and adjusted accordingly: Yes Vasopressors:: None Sedation:: None Physical Exam Vital Signs: Temp Pulse Resp BP Pulse Ox 97.9 F 97 24 H 128/56 H 94 03/25/19 08:00 03/25/19 10:00 03/25/19 10:00 03/25/19 09:42 03/25/19 10:00 Intake & Output 03/24/19 03/25/19 03/26/19 06:59 06:59 06:59 Intake Total 490 100 100 Output Total 500 1330 125 Balance -10 -1230 -25 Weight 70 kg 70.5 kg Weight/Height Weight 70.5 kg Height 5 ft 3 in General appearance: PRESENT: no acute distress, cooperative, well-developed, well-nourished Exam: Pleasant nontoxic 63-year-old black female no acute distress. Afebrile Head exam: PRESENT: atraumatic, normocephalic Eye exam: PRESENT: conjunctiva pink, EOMI, PERRLA. ABSENT: conjunctival injection, nystagmus, scleral icterus Mouth exam: PRESENT: neck supple Neck exam: ABSENT: carotid bruit, JVD, lymphadenopathy, thyromegaly Respiratory exam: PRESENT: clear to auscultation bianca, unlabored. ABSENT: accessory muscle use, crackles, rhonchi, tachypnea, wheezes Cardiovascular exam: PRESENT: RRR, +S1, +S2, tachycardia Pulses: PRESENT: +2 pedal pulses bilateral Vascular exam: PRESENT: normal capillary refill. ABSENT: pallor GI/Abdominal exam: PRESENT: normal bowel sounds, soft. ABSENT: ascites, distended, guarding, mass, organolmegaly, rebound, rigid, tenderness Rectal exam: PRESENT: deferred Extremities exam: ABSENT: pedal edema Musculoskeletal exam: PRESENT: normal inspection. ABSENT: deformity, dislocation Neurological exam: PRESENT: alert, awake, oriented to person, oriented to place, oriented to time, oriented to situation, CN II-XII grossly intact. ABSENT: motor sensory deficit Psychiatric exam: PRESENT: appropriate affect Focused psych exam: ABSENT: psychomotor agitation, restlessness Skin exam: PRESENT: intact, normal color. ABSENT: abrasion, cyanosis, erythema, mottled, pallor, petechiae, urticaria, vesicles Tubes/Lines: ABSENT: Endotracheal Tube, Chest Tube, Central Line, Arterial Catheter, Dialysis catheter, Peg Tube, Nasogastic Tube, Other Laboratory/Radiographs Laboratory Results: 03/25/19 04:34 03/25/19 04:34 03/24/19 03/24/19 03/25/19 21:25 22:41 04:34 WBC 14.6 H RBC 3.39 L Hgb 10.6 L Hct 32.9 L MCV 97 MCH 31.3 MCHC 32.2 RDW 15.8 H Plt Count 336 Seg Neutrophils % Not Reportable Sodium Cancelled 143.0 Potassium Cancelled 4.2 Chloride Cancelled 98 Carbon Dioxide Cancelled 39 H Anion Gap Cancelled 6 BUN Cancelled 27 H Creatinine Cancelled 1.13 Est GFR ( Amer) Cancelled 59 L Est GFR (Non-Af Amer) Cancelled Glucose Cancelled 196 H Calcium Cancelled 10.3 H Phosphorus Magnesium 03/25/19 04:34 WBC RBC Hgb Hct MCV MCH MCHC RDW Plt Count Seg Neutrophils % Sodium 141.9 Potassium 4.0 Chloride 98 Carbon Dioxide 39 H Anion Gap 5 BUN 27 H Creatinine 0.94 Est GFR ( Amer) > 60 Est GFR (Non-Af Amer) Glucose 131 H Calcium 9.9 Phosphorus 3.1 Magnesium 1.6 03/09/19 03/09/19 03/10/19 18:56 18:56 01:08 Creatine Kinase 52 34 CK-MB (CK-2) 5.90 H Troponin I < 0.012 NT-Pro-B Natriuret Pep [id number] H 03/10/19 03/10/19 03/10/19 01:08 07:30 07:30 Creatine Kinase 33 CK-MB (CK-2) 3.46 2.50 Troponin I < 0.012 0.013 NT-Pro-B Natriuret Pep 03/10/19 03/10/19 14:13 14:13 Creatine Kinase 39 CK-MB (CK-2) 1.43 Troponin I 0.017 NT-Pro-B Natriuret Pep Impressions: Head CT 03/09/19 19:17 IMPRESSION: No acute intracranial abnormalities. KUB X-Ray 03/13/19 00:00 IMPRESSION: NO RADIOGRAPHIC EVIDENCE FOR ACUTE ABDOMINAL DISEASE. Chest X-Ray 03/22/19 06:00 IMPRESSION: No acute infiltrates. Lucent upper lobes from obstructive disease. Stable mild cardiomegaly All labs, radiographs, diagnostic studies and EKGs were personally reviewed: Yes In addition, reports of radiographic and diagnostic studies were read: Yes Assessment and Plan - Diagnosis (1) Acute on chronic respiratory failure with hypoxia and hypercapnia Is this a current diagnosis for this admission?: Yes Plan: Much improved. (2) Moderate to severe pulmonary hypertension Is this a current diagnosis for this admission?: Yes Plan: Acute on chronic. Continued subjective improvement in symptoms. Pulmonary hypertension secondary to WHO class III, tobacco related emphysema. Will have PT/OT work with patient for walk test and objective measurement (3) Emphysema of lung Qualifiers: Emphysema type: centrilobular Qualified Code(s): J43.2 - Centrilobular emphysema Is this a current diagnosis for this admission?: Yes Plan: Continue supportive care. See below (4) Urinary retention Is this a current diagnosis for this admission?: Yes Plan: Resolved (5) Anxiety and depression Is this a current diagnosis for this admission?: Yes Plan: Improved. Present on admission. Restarted on medications (6) Chronic pain disorder Is this a current diagnosis for this admission?: Yes Plan: Improved. Present on admission. Improved. No need for narcotics (7) Anxiety and depression Is this a current diagnosis for this admission?: Yes Plan Summary: 03.25.19: Patient continues to convalesce in the ICU. She has been in downgrade status however there are no other beds to facilitate transfer. We are working with physical therapy to provide objective evidence including 6-minute walk test to determine how well she is doing on the increase in sildenafil. Patient's white blood cell count has been elevated presumably related to steroids. We should expect a reduction, which is happening, after 4 days. She is asymptomatic afebrile has no evidence of infection. Unfortunately we do not have procalcitonin is here as a screening tool. Have reduced her dose and started her on oral prednisone. Her digoxin was increased yesterday and will follow levels in 2 to 3 days. To new to monitor electrolytes. We will continue supportive care. Patient will need BiPAP continually at night. She is also on home oxygen. Of interest her need for higher flow oxygen has improved with the increase in sildenafil. 03.24.19: Patient's hypoxia has improved and we have transitioned her to nasal cannula oxygen. This has been weaning throughout the day and she is now on 2 to 3 L nasal cannula. This demonstrates both an objective and subjective improvement in patient's symptoms while on higher dose sildenafil. She underwent physical therapy and was able to get up and get into the chair. This represents subjective improvement. Her digoxin level was less than 0.4 and have increased her dosing. Plan is to downgrade patient to floor status. As far as her steroid dosing will continue at 20 mg twice a day and wean by 5 to 10 mg slowly. She may have a steroid responsive disease process and will need to be vigilant to follow this. Have transition to p.o. Lasix Patient will need to be maintained on BiPAP at night and appropriate adjudication of her blood gas including PCO2 will need to be evaluated while on sildenafil. Would suggest pulmonary consult while patient on the floor. Will discuss with her physician team when transfer completed. Patient admitted under hospitalists service after discontinuing care provided by Dr. Latif. Critical Time Critical Time (minutes): 0 - [id number] Level of Care: IMCU Anticipated discharge: Acute Rehab Within: within 48 hours -: 1. The care of a critical patient is a dynamic process. This note is a sales representative facility services synopsis but static in nature. The timeframe for treatments given in order is not necessary the actual time these treatments may have been done. 2. This patient requires critical care secondary to ongoing requirements for therapy not offered or safe outside the critical care environment. Transfer to a lower level of care with altered life or limb morbidity and mortality. 3. Multidisciplinary rounds completed. 4. ABCDE bundle addressed. 5. MPOA: Son. Will update when he arrives.
[2019-03-25] MEDS: ALPRAZOLAM 0.5 MG TABLET PO PRN (19:38)
[2019-03-26] MEDS: ALPRAZOLAM 0.5 MG TABLET PO PRN (00:58)
[2019-03-26 04:48] LABS: HEMATOCRIT 27.2 % (36.0-47.0); HEMOGLOBIN 8.8 g/dL (12.0-15.5); MEAN CORPUSCULAR HEMOGLOBIN 31.7 pg (27.0-33.4); MEAN CORPUSCULAR HGB CONC 32.5 g/dL (32.0-36.0); MEAN CORPUSCULAR VOLUME 98 fl (80-97); PLATELET COUNT 344 10^3/uL (150-450); RED BLOOD COUNT 2.78 10^6/uL (3.72-5.28); RED CELL DISTRIBUTION WIDTH 15.7 % (11.5-14.0); WHITE BLOOD COUNT 16.5 10^3/uL (4.0-10.5)
[2019-03-26 05:08] LABS: BLOOD UREA NITROGEN 21 mg/dL (7-20); CALCIUM 9.6 mg/dL (8.4-10.2); CHLORIDE 97 mmol/L (98-107); GLUCOSE 121 mg/dL (75-110); PHOSPHORUS 3.2 mg/dL (2.5-4.5); POTASSIUM 3.7 mmol/L (3.6-5.0)
[2019-03-26 05:14] LABS: ANION GAP 3 (5-19); CARBON DIOXIDE 39 mmol/L (22-30)
[2019-03-26 05:20] LABS: ABSOLUTE LYMPHOCYTES# (MANUAL) 1.3 10^3/uL (0.5-4.7); BAND NEUTROPHILS % (MANUAL) 1 % (3-5); BASOPHILS % (MANUAL) 0 % (0-2); EOSINOPHILS % (MANUAL) 1 % (0-6); LYMPHOCYTES % (MANUAL) 8 % (13-45); MONOCYTES % (MANUAL) 6 % (3-13); SEGMENTED NEUTROPHILS % (MAN) 84 % (42-78); TOTAL CELLS COUNTED 100
[2019-03-26 05:22] LABS: ANISOCYTOSIS SLIGHT; OVALOCYTES SLIGHT; PLATELET COMMENT ADEQUATE; POIKILOCYTOSIS SLIGHT; SCHISTOCYTES SLIGHT; TOXIC GRANULATION SLIGHT; TOXIC VACUOLATION PRESENT
[2019-03-26] MEDS: HEPARIN SOD (PORCINE) 5,000 UNIT/ML 1 ML VIAL SUBCUT SCH ×3 (06:42→21:45)
[2019-03-26] MEDS: ALBUTEROL SULFATE 0.042% NEB (1.25 MG/3 ML) AMPUL NEB SCH ×4 (08:29→20:05)
[2019-03-26] MEDS: ESCITALOPRAM OXALATE 10 MG TABLET PO SCH (11:44)
[2019-03-26] MEDS: FUROSEMIDE 20 MG TABLET PO SCH (11:44)
[2019-03-26] MEDS: DOCUSATE SODIUM 100 MG CAPSULE PO SCH ×2 (11:44→21:45)
[2019-03-26] MEDS: PREDNISONE 10 MG TABLET PO SCH ×2 (11:45→17:06)
[2019-03-26] MEDS: DIGOXIN 0.25 MG TABLET PO SCH (11:45)
--- NOTE | 2019-03-26 12:22 | PDOC CRITICAL CARE PROG REPORT ---
General Date:: 03/26/19 ICU Day:: 18 Ventilator Day:: 0 Hospital Day:: 18 Events in the past 12 to 24 Hours:: Noted elevated WBC. Asymptomatic. Reduced steroids and now on PO. Afebrile. Review of systems relevant to events:: Essentially, no complaints. Specifically she denies fever, chills, cough, abdominal pain, joint pain. She has no dysuria, no hematuria, no rashes She has no nausea vomiting or diarrhea. She denies any dyspnea and has had no cough or productive sputum. Reason for ICU Addmission:: Acute on chronic respiratory failure with advanced emphysema and pulmonary hypertension - Medications: Medications reviewed and adjusted accordingly: Yes Vasopressors:: None Sedation:: None Physical Exam Vital Signs: Temp Pulse Resp BP Pulse Ox 97.7 F 111 H 23 H 149/81 H 100 03/26/19 07:38 03/26/19 07:38 03/26/19 07:38 03/26/19 07:38 03/26/19 07:38 Intake & Output 03/25/19 03/26/19 03/27/19 06:59 06:59 06:59 Intake Total 100 600 Output Total 1330 126 Balance -1230 474 Weight 70.5 kg 69.5 kg Weight/Height Weight 69.5 kg Height 5 ft 3 in General appearance: PRESENT: no acute distress, cooperative, well-developed, well-nourished Exam: Pleasant nontoxic [id number] 63-year-old female no active distress she is awake alert and oriented x3 Eye exam: PRESENT: conjunctiva pink, EOMI, PERRLA. ABSENT: conjunctival injection, nystagmus, scleral icterus Mouth exam: PRESENT: moist, neck supple. ABSENT: dry mucosa Teeth exam: PRESENT: dental caries Throat exam: ABSENT: post pharyngeal erythema, tonsillar erythema, tonsillar exudate, tonsillogmegaly Neck exam: ABSENT: carotid bruit, JVD, lymphadenopathy, meningismus, tenderness, thyromegaly Respiratory exam: PRESENT: clear to auscultation bianca, unlabored. ABSENT: accessory muscle use, crackles, rhonchi, tachypnea, wheezes Cardiovascular exam: PRESENT: RRR, +S1, +S2. ABSENT: tachycardia Pulses: PRESENT: +1 pedal pulses bilateral GI/Abdominal exam: PRESENT: normal bowel sounds, soft. ABSENT: ascites, distended, guarding, mass, Keyes's sign, organolmegaly, rebound, rigid, tenderness Rectal exam: PRESENT: deferred Extremities exam: PRESENT: full ROM. ABSENT: calf tenderness, clubbing, pedal edema Musculoskeletal exam: PRESENT: normal inspection. ABSENT: deformity, dislocation, tenderness Neurological exam: PRESENT: alert, awake, oriented to person, oriented to place, oriented to time, oriented to situation, CN II-XII grossly intact, normal gait, other - Walked with PT and walker assistance. Distance 60 feet on 2 L. ABSENT: altered, ataxia, motor sensory deficit Psychiatric exam: PRESENT: appropriate affect Skin exam: PRESENT: dry, intact, normal color, warm. ABSENT: cyanosis, pallor, rash, urticaria, vesicles Tubes/Lines: ABSENT: Endotracheal Tube, Chest Tube, Central Line, Arterial Catheter, Dialysis catheter - No fish, Peg Tube, Nasogastic Tube, Other Laboratory/Radiographs Laboratory Results: 03/26/19 03:51 03/26/19 03:51 03/26/19 03/26/19 03:51 03:51 WBC 16.5 H RBC 2.78 L Hgb 8.8 L Hct 27.2 L MCV 98 H MCH 31.7 MCHC 32.5 RDW 15.7 H Plt Count 344 Seg Neutrophils % Not Reportable Sodium 139.4 Potassium 3.7 Chloride 97 L Carbon Dioxide 39 H Anion Gap 3 L BUN 21 H Creatinine 0.77 Est GFR ( Amer) > 60 Glucose 121 H Calcium 9.6 Phosphorus 3.2 Magnesium 2.3 03/09/19 03/09/19 03/10/19 18:56 18:56 01:08 Creatine Kinase 52 34 CK-MB (CK-2) 5.90 H Troponin I < 0.012 NT-Pro-B Natriuret Pep 66816 H 03/10/19 03/10/19 03/10/19 01:08 07:30 07:30 Creatine Kinase 33 CK-MB (CK-2) 3.46 2.50 Troponin I < 0.012 0.013 NT-Pro-B Natriuret Pep 03/10/19 03/10/19 14:13 14:13 Creatine Kinase 39 CK-MB (CK-2) 1.43 Troponin I 0.017 NT-Pro-B Natriuret Pep Impressions: Head CT 03/09/19 19:17 IMPRESSION: No acute intracranial abnormalities. KUB X-Ray 03/13/19 00:00 IMPRESSION: NO RADIOGRAPHIC EVIDENCE FOR ACUTE ABDOMINAL DISEASE. Chest X-Ray 03/22/19 06:00 IMPRESSION: No acute infiltrates. Lucent upper lobes from obstructive disease. Stable mild cardiomegaly All labs, radiographs, diagnostic studies and EKGs were personally reviewed: Yes In addition, reports of radiographic and diagnostic studies were read: Yes Assessment and Plan - Diagnosis (1) Acute on chronic respiratory failure with hypoxia and hypercapnia Is this a current diagnosis for this admission?: Yes Plan: Much improved. (2) Neutrophilic leukocytosis Is this a current diagnosis for this admission?: Yes Plan: Check ESR/CRP. Unable to obtain procalcitonin (3) Moderate to severe pulmonary hypertension Is this a current diagnosis for this admission?: Yes Plan: Acute on chronic. Continued subjective improvement in symptoms. Pulmonary hypertension secondary to WHO class III, tobacco related emphysema. Patient was able to walk more than 60 feet without the need for increased oxygen therapy today. (4) Emphysema of lung Qualifiers: Emphysema type: centrilobular Qualified Code(s): J43.2 - Centrilobular emphysema Is this a current diagnosis for this admission?: Yes Plan: On Trelegy. Plan for pulmonary rehab and follow [facility]. See below (5) Urinary retention Is this a current diagnosis for this admission?: Yes Plan: Resolved. Will check urine specimen as source for elevation in WBC (6) Anxiety and depression Is this a current diagnosis for this admission?: Yes Plan: Improved. Present on admission. Restarted on medications, no complications. (7) Chronic pain disorder Is this a current diagnosis for this admission?: Yes Plan: Improved. Present on admission. No need for narcotics--follow while in PT (8) Anxiety and depression Is this a current diagnosis for this admission?: Yes Plan Summary: 03.26.19: Patient has been maintained in ICU but is in downgraded status secondary to no bed capacity. She is continuing to improve slowly but surely with the current dosing of sildenafil. We will check a digoxin level in the morning to assure normal levels. Continue at current sildenafil dose for the time being. What is most concerning is the leukocytosis. There is no etiologic source for this however we are under an investigative process to determine whether this is related to something simple such as steroids or an occult infection. She did have urinary retention requiring placement of a Fish to but this was removed without sequelae. There is no pulmonary source for the infection based on clinical examination. To that end, because she has been on steroids, will screen vis--vis blood cultures, urine studies, and attempt to obtain sputum. Have also ordered a chest x-ray. Ultrasounds of her legs would be the next step if no other source is found. We will be vigilant to watch for fever. Currently on no antibiotics. 19: Patient continues to convalesce in the ICU. She has been in downgrade status however there are no other beds to facilitate transfer. We are working with physical therapy to provide objective evidence including 6-minute walk test to determine how well she is doing on the increase in sildenafil. Patient's white blood cell count has been elevated presumably related to steroids. We should expect a reduction, which is happening, after 4 days. She is asymptomatic afebrile has no evidence of infection. Unfortunately we do not have procalcitonin is here as a screening tool. Have reduced her dose and started her on oral prednisone. Her digoxin was increased yesterday and will follow levels in 2 to 3 days. To new to monitor electrolytes. We will continue supportive care. Patient will need BiPAP continually at night. She is also on home oxygen. Of interest her need for higher flow oxygen has improved with the increase in sildenafil. 19: Patient's hypoxia has improved and we have transitioned her to nasal cannula oxygen. This has been weaning throughout the day and she is now on 2 to 3 L nasal cannula. This demonstrates both an objective and subjective improvement in patient's symptoms while on higher dose sildenafil. She underwent physical therapy and was able to get up and get into the chair. This represents subjective improvement. Her digoxin level was less than 0.4 and have increased her dosing. Plan is to downgrade patient to floor status. As far as her steroid dosing will continue at 20 mg twice a day and wean by 5 to 10 mg slowly. She may have a steroid responsive disease process and will need to be vigilant to follow this. Have transition to p.o. Lasix Patient will need to be maintained on BiPAP at night and appropriate adjudication of her blood gas including PCO2 will need to be evaluated while on sildenafil. Would suggest pulmonary consult while patient on the floor. Will discuss with her physician team when transfer completed. Patient admitted under hospitalists service after discontinuing care provided by Dr. Latif. Critical Time Critical Time (minutes): 0 - [id number] Level of Care: MEDICAL Anticipated discharge: Acute Rehab Within: within 48 hours -: 1. The care of a critical patient is a dynamic process. This note is a quality audit representative synopsis but static in nature. The timeframe for treatments given in order is not necessary the actual time these treatments may have been done. 2. This patient requires critical care secondary to ongoing requirements for therapy not offered or safe outside the critical care environment. Transfer to a lower level of care with altered life or limb morbidity and mortality. 3. Multidisciplinary rounds completed. 4. ABCDE bundle addressed. 5. MPOA: Darian Rodriguez
[2019-03-26] MEDS: SILDENAFIL CITRATE 20 MG TABLET PO SCH ×3 (13:16→17:06)
[2019-03-26] MEDS: BUSPIRONE HCL 10 MG TABLET PO SCH ×2 (13:16→21:45)
[2019-03-26] MEDS: FLUTICASONE/UMECLIDIN/VILANTER 100-62.5-25 MCG/DOSE IH SCH (13:17)
--- NOTE | 2019-03-26 13:19 | RADIOLOGY REPORT (SQ) ---
EXAM DESCRIPTION: CHEST SINGLE VIEW COMPLETED DATE/TIME: 03/26/2019 12:49 pm REASON FOR STUDY: Pneumonia COMPARISON: AP view of the chest from 03/22/2019 EXAM PARAMETERS: NUMBER OF VIEWS: One view. TECHNIQUE: Single frontal radiographic view of the chest acquired. RADIATION DOSE: NA LIMITATIONS: None. FINDINGS: LUNGS AND PLEURA: Upper lobe predominant emphysema and lower lobe predominant interstitial prominence. There is no acute consolidation, sizeable pleural effusion or pneumothorax. MEDIASTINUM AND HILAR STRUCTURES: Stable mediastinal and hilar contours. HEART AND VASCULAR STRUCTURES: Stable cardiomegaly. BONES: No acute findings. HARDWARE: None in the chest. OTHER: No other findings. IMPRESSION: No acute cardiopulmonary process. TECHNICAL DOCUMENTATION: JOB ID: [id number] [employer]- All Rights Reserved Reading location - IP/workstation name: [email or web address]
--- NOTE | 2019-03-26 19:07 | Progress Note ---
Provider Note Provider Note: Patient seen and evaluated by me. Patient currently feels comfortable. Denies any shortness of breath or chest pain but states that when she was ambulating earlier she felt short of breath. Denies any dizziness. Patient aware that she will sleep with BiPAP machine. BiPAP nightly Family discussion to follow tomorrow Continue nebs and slow steroid taper for treatment of COPD exacerbation. Continue vasodilators for treatment of pulmonary hypertension. We will transfer the patient for pulmonary rehab and she will need to follow-up with [facility] on discharge
[2019-03-26] MEDS ORDERED: ALPRAZOLAM 0.25 MG TABLET PO ONE (23:30)
[2019-03-27] MEDS: HEPARIN SOD (PORCINE) 5,000 UNIT/ML 1 ML VIAL SUBCUT SCH ×3 (05:13→21:20)
[2019-03-27 06:03] LABS: MEAN CORPUSCULAR HEMOGLOBIN 31.4 pg (27.0-33.4); MEAN CORPUSCULAR HGB CONC 32.2 g/dL (32.0-36.0); MEAN CORPUSCULAR VOLUME 98 fl (80-97); PLATELET COUNT 348 10^3/uL (150-450); RED BLOOD COUNT 2.88 10^6/uL (3.72-5.28); RED CELL DISTRIBUTION WIDTH 16.1 % (11.5-14.0); WHITE BLOOD COUNT 16.7 10^3/uL (4.0-10.5)
[2019-03-27 06:25] LABS: BLOOD UREA NITROGEN 17 mg/dL (7-20); CALCIUM 10.1 mg/dL (8.4-10.2); CHLORIDE 96 mmol/L (98-107); DIGOXIN 0.46 ng/mL (0.8-2.0); GLUCOSE 72 mg/dL (75-110); PHOSPHORUS 2.3 mg/dL (2.5-4.5); POTASSIUM 3.8 mmol/L (3.6-5.0)
[2019-03-27 06:29] LABS: ABSOLUTE LYMPHOCYTES# (MANUAL) 1.3 10^3/uL (0.5-4.7); ABSOLUTE MONOCYTES # (MANUAL) 1.7 10^3/uL (0.1-1.4); BASOPHILS % (MANUAL) 1 % (0-2); EOSINOPHILS % (MANUAL) 2 % (0-6); LYMPHOCYTES % (MANUAL) 8 % (13-45); MONOCYTES % (MANUAL) 10 % (3-13); SEGMENTED NEUTROPHILS % (MAN) 79 % (42-78); TOTAL CELLS COUNTED 100
[2019-03-27 06:30] LABS: ANISOCYTOSIS 1+; PLATELET COMMENT ADEQUATE; POIKILOCYTOSIS 3+; STOMATOCYTES 3+
[2019-03-27 06:36] LABS: ANION GAP 5 (5-19); CARBON DIOXIDE 39 mmol/L (22-30)
[2019-03-27] MEDS: ALBUTEROL SULFATE 0.042% NEB (1.25 MG/3 ML) AMPUL NEB SCH ×2 (08:44→12:23)
[2019-03-27] MEDS: PHOSPHORUS #1 250 MG TABLET PO SCH ×2 (09:24→17:01)
[2019-03-27] MEDS: DIGOXIN 0.25 MG TABLET PO SCH (09:25)
[2019-03-27] MEDS: BUSPIRONE HCL 10 MG TABLET PO SCH ×2 (09:25→21:19)
[2019-03-27] MEDS: PREDNISONE 10 MG TABLET PO SCH (09:25)
[2019-03-27] MEDS: ALPRAZOLAM 0.25 MG TABLET PO SCH ×2 (09:25→23:38)
[2019-03-27] MEDS: DOCUSATE SODIUM 100 MG CAPSULE PO SCH ×2 (09:25→21:19)
[2019-03-27] MEDS: ESCITALOPRAM OXALATE 10 MG TABLET PO SCH (09:25)
[2019-03-27] MEDS: FUROSEMIDE 20 MG TABLET PO SCH (09:25)
[2019-03-27] MEDS: FLUTICASONE/UMECLIDIN/VILANTER 100-62.5-25 MCG/DOSE IH SCH (09:26)
[2019-03-27] MEDS: SILDENAFIL CITRATE 20 MG TABLET PO SCH ×3 (09:26→17:02)
--- NOTE | 2019-03-27 11:10 | EKG REPORT ---
SEVERITY:- ABNORMAL ECG - SINUS TACHYCARDIA PROBABLE LEFT ATRIAL ABNORMALITY RIGHT AXIS DEVIATION BORDERLINE T WAVE ABNORMALITIES LATERAL LEADS. : Confirmed by: Neftaly Barrett MD 27-Mar-2019 11:09:45
--- NOTE | 2019-03-27 12:06 | RADIOLOGY REPORT (SQ) ---
EXAM DESCRIPTION: VENOUS BILATERAL LOWER COMPLETED DATE/TIME: 03/27/2019 11:34 am REASON FOR STUDY: swelling, PE? COMPARISON: None. TECHNIQUE: Dynamic and static biswas scale and color images acquired of both lower extremity venous sy stems. Selected spectral images acquired with additional compression and augmentation maneuvers. Imag es stored on PACS. LIMITATIONS: None. FINDINGS: RIGHT LEG COMMON FEMORAL AND FEMORAL: Normal phasicity, compression and augmentation. No visualized echogenic m aterial on biswas scale. No defects on color images. POPLITEAL: Normal compression and augmentation. No visualized echogenic material on biswas scale. No de fects on color images. CALF VESSELS: Normal compression and augmentation. No visualized echogenic material on biswas scale. No defects on color image. GSV AND SSV: Normal compression. No visualized echogenic material on biswas scale. No defects on color images. ANY DEEP VENOUS INSUFFICIENCY: Not evaluated. ANY EVIDENCE OF POPLITEAL CYST: No. OTHER: No other significant finding. LEFT LEG COMMON FEMORAL AND FEMORAL: Normal phasicity, compression and augmentation. No visualized echogenic m aterial on biswas scale. No defects on color images. POPLITEAL: Normal compression and augmentation. No visualized echogenic material on biswas scale. No de fects on color images. CALF VESSELS: Normal compression and augmentation. No visualized echogenic material on biswas scale. No defects on color images. GSV AND SSV: Normal compression. No visualized echogenic material on biswas scale. No defects on color images. ANY DEEP VENOUS INSUFFICIENCY: Not evaluated. ANY EVIDENCE POPLITEAL CYST: No. OTHER: No other significant finding. IMPRESSION: NO EVIDENCE DVT OR SVT IN EITHER LEG. TECHNICAL DOCUMENTATION: JOB ID: [id number] [email or web address]- All Rights Reserved Reading location - IP/workstation name: [email or web address]-
--- NOTE | 2019-03-27 15:05 | PDOC PROGRESS REPORT ---
Subjective Subjective:: Patient had some increased anxiety yesterday 9. Received a dose of Xanax. Patient states that she has been Xanax 0.25 mg twice a day to help with anxiety but has been getting in the hospital. Patient otherwise states her breathing is a little bit better from yesterday. Denies any chest pain. Still gets dyspneic when trying to ambulate. Reason For Visit: ACUTE RESPIRATORY FAILURE WITH HYPOXIA AND Physical Exam Vital Signs: Temp Pulse Resp BP Pulse Ox 98.5 F 115 H 18 152/61 H 95 03/27/19 07:30 03/27/19 14:00 03/27/19 12:23 03/27/19 07:30 03/27/19 08:44 Intake & Output 03/26/19 03/27/19 03/28/19 06:59 06:59 06:59 Intake Total 600 120 Output Total 126 700 Balance 474 -700 120 Weight 69.5 kg 72.5 kg General appearance: PRESENT: no acute distress, cooperative Neck exam: PRESENT: JVD Respiratory exam: PRESENT: clear to auscultation bianca, symmetrical, unlabored. ABSENT: crackles, tachypnea, wheezes Cardiovascular exam: PRESENT: +S1, +S2, tachycardia. ABSENT: irregular rhythm GI/Abdominal exam: PRESENT: normal bowel sounds, soft. ABSENT: firm, rebound, rigid, tenderness Neurological exam: PRESENT: alert, awake, oriented to person, oriented to place, oriented to time Results Laboratory Results: 03/27/19 05:01 03/27/19 05:01 03/27/19 03/27/19 05:01 05:01 WBC 16.7 H RBC 2.88 L Hgb 9.0 L Hct 28.0 L MCV 98 H MCH 31.4 MCHC 32.2 RDW 16.1 H Plt Count 348 Seg Neutrophils % Not Reportable Sodium 139.5 Potassium 3.8 Chloride 96 L Carbon Dioxide 39 H Anion Gap 5 BUN 17 Creatinine 0.76 Est GFR ( Amer) > 60 Glucose 72 L Calcium 10.1 Phosphorus 2.3 L Magnesium 2.0 03/09/19 03/09/19 03/10/19 18:56 18:56 01:08 Creatine Kinase 52 34 CK-MB (CK-2) 5.90 H Troponin I < 0.012 NT-Pro-B Natriuret Pep 66115 H 03/10/19 03/10/19 03/10/19 01:08 07:30 07:30 Creatine Kinase 33 CK-MB (CK-2) 3.46 2.50 Troponin I < 0.012 0.013 NT-Pro-B Natriuret Pep 03/10/19 03/10/19 14:13 14:13 Creatine Kinase 39 CK-MB (CK-2) 1.43 Troponin I 0.017 NT-Pro-B Natriuret Pep Impressions: Head CT 03/09/19 19:17 IMPRESSION: No acute intracranial abnormalities. KUB X-Ray 03/13/19 00:00 IMPRESSION: NO RADIOGRAPHIC EVIDENCE FOR ACUTE ABDOMINAL DISEASE. Chest X-Ray 03/26/19 00:00 IMPRESSION: No acute cardiopulmonary process. Venous Doppler Study 03/27/19 00:00 IMPRESSION: NO EVIDENCE DVT OR SVT IN EITHER LEG. Assessment and Plan - Diagnosis (1) Acute on chronic respiratory failure with hypoxia and hypercapnia Is this a current diagnosis for this admission?: Yes Plan: Improved. Continue supplemental oxygen via nasal cannula and BiPAP at nighttime (2) Moderate to severe pulmonary hypertension Is this a current diagnosis for this admission?: Yes Plan: Continue with sildenafil 20 mg 3 times daily and digoxin 0.25 mg daily. Digoxin level drawn this morning was 0.46. I will repeat digoxin level at 8 PM today which will be 11 hours from the prior dose to get the more accurate sense of the therapeutic level of his current dosage. Monitor potassium and magnesium levels. Continue with Lasix 20 mg daily We will plan for follow-up outpatient appointment with Dr. Tony Centeno at [facility] pulmonary hypertension clinic Patient would also need pulmonary rehabilitation (3) Emphysema of lung Qualifiers: Emphysema type: centrilobular Qualified Code(s): J43.2 - Centrilobular emphysema Is this a current diagnosis for this admission?: Yes Plan: Currently started on trelegy during this admission. Plan for pulmonary rehabilitation Change albuterol to Xopenex given significant sinus tachycardia still Prednisone taper slowly. Will decrease to 5 mg twice daily today. (4) Neutrophilic leukocytosis Is this a current diagnosis for this admission?: Yes Plan: Chest x-ray was repeated showing no acute pulmonary disease. Urinalysis shows no evidence of infection. Blood cultures negative so far. Lower extremity Dopplers were negative for blood clots. His leukocytosis is still persistent at the same level but may be secondary to prednisone and/or stress response from recent illness. (5) Anxiety and depression Is this a current diagnosis for this admission?: Yes Plan: Continue with buspirone Restarted home dose of Xanax 0.25 mg twice daily. I have increased escitalopram to 15 mg daily to help with anxiety (6) Sinus tachycardia Is this a current diagnosis for this admission?: Yes Plan: I have personally reviewed today's EKG image. Not really sure as to the cause of this. However this could be multifactorial secondary to anxiety, decond itioning, and current hypoxic critical illness. No evidence of infection thus far. We will continue to monitor. Will titrate digoxin if possible. If continues to persist, we will check d-dimer and CTA if needed. - Plan Summary Summary: Patient is admitted to the ICU and will be continued on endotracheal intubation with mechanical ventilation. I have adjusted her respiratory settings to increase her inspiratory volume to 550 mL, increase her respiratory rate 18, increase her PEEP to 8 and I have decreased her FiO2 which I will continue to wean throughout the evening to maintain an O2 sat of 90 to 94%. She will be continued on medazepam IV as an infusion for comfort while being intubated and mechanically ventilated. She may also be treated with propofol as required for the same medication. Her heart failure will be treated with Bumex 1 mg IV every 6 hours initially and further treatment will be administered as determined by the staking engineer when they take over care of the morning. A CBC, comprehensive metabolic profile, magnesium level and ABG are ordered for the morning. A chest x-ray is also ordered for the morning. The patient was started on antibiotic therapy for a healthcare acquired pneumonia in the emergency room. This was continued after admission pending blood culture results. - Time Time Spent with patient: 25-34 minutes - Inpatient Certification Based on my medical assessment, after consideration of the patient's comorbidities, presenting symptoms, or acuity I expect that the services needed warrant INPATIENT care.: Yes Medical Necessity: Significant Comorbidiites Make Outpatient Treatment Too Risky, Need For Continuous Telemetry Monitoring, Risk of Complication if Not Cared For in Hospital
[2019-03-27] MEDS ORDERED: METOPROLOL TARTRATE PF/INJ 5 MG/5 ML SDV IV PRN (15:27)
[2019-03-27] MEDS: LEVALBUTEROL HCL NEB 0.63 MG/3 ML AMPUL NEB SCH (20:22)
[2019-03-27] MEDS: PREDNISONE 5 MG TABLET PO SCH (21:19)
[2019-03-27] MEDS ORDERED: PREDNISONE 10 MG TABLET PO SCH (22:00)
[2019-03-28] MEDS: HEPARIN SOD (PORCINE) 5,000 UNIT/ML 1 ML VIAL SUBCUT SCH ×3 (05:28→21:34)
[2019-03-28 06:02] LABS: HEMATOCRIT 26.7 % (36.0-47.0); HEMOGLOBIN 8.7 g/dL (12.0-15.5); MEAN CORPUSCULAR HEMOGLOBIN 31.8 pg (27.0-33.4); MEAN CORPUSCULAR HGB CONC 32.6 g/dL (32.0-36.0); MEAN CORPUSCULAR VOLUME 98 fl (80-97); PLATELET COUNT 306 10^3/uL (150-450); RED BLOOD COUNT 2.74 10^6/uL (3.72-5.28); RED CELL DISTRIBUTION WIDTH 16.3 % (11.5-14.0); WHITE BLOOD COUNT 13.2 10^3/uL (4.0-10.5)
[2019-03-28 06:19] LABS: ANION GAP 5 (5-19); BLOOD UREA NITROGEN 17 mg/dL (7-20); CALCIUM 10.1 mg/dL (8.4-10.2); CHLORIDE 99 mmol/L (98-107); GLUCOSE 93 mg/dL (75-110); POTASSIUM 3.8 mmol/L (3.6-5.0)
[2019-03-28 06:26] LABS: CARBON DIOXIDE 40 mmol/L (22-30)
[2019-03-28 06:32] LABS: ABSOLUTE LYMPHOCYTES# (MANUAL) 2.1 10^3/uL (0.5-4.7); ABSOLUTE MONOCYTES # (MANUAL) 1.1 10^3/uL (0.1-1.4); BAND NEUTROPHILS % (MANUAL) 1 % (3-5); BASOPHILS % (MANUAL) 0 % (0-2); EOSINOPHILS % (MANUAL) 0 % (0-6); LYMPHOCYTES % (MANUAL) 16 % (13-45); MONOCYTES % (MANUAL) 8 % (3-13); NUCLEATED RED BLOOD CELLS 1 /100 WBC (0); SEGMENTED NEUTROPHILS % (MAN) 75 % (42-78); TOTAL CELLS COUNTED 100
[2019-03-28 06:33] LABS: ANISOCYTOSIS 1+; OVALOCYTES SLIGHT; PLATELET COMMENT ADEQUATE; POIKILOCYTOSIS SLIGHT; SCHISTOCYTES SLIGHT; TOXIC GRANULATION SLIGHT
[2019-03-28] MEDS: LEVALBUTEROL HCL NEB 0.63 MG/3 ML AMPUL NEB SCH ×3 (08:33→20:30)
[2019-03-28] MEDS: DIGOXIN 0.25 MG TABLET PO SCH (10:38)
[2019-03-28] MEDS: DOCUSATE SODIUM 100 MG CAPSULE PO SCH ×2 (10:38→21:34)
[2019-03-28] MEDS: ALPRAZOLAM 0.25 MG TABLET PO SCH (10:38)
[2019-03-28] MEDS: PREDNISONE 5 MG TABLET PO SCH ×2 (10:39→21:35)
[2019-03-28] MEDS: FUROSEMIDE 20 MG TABLET PO SCH (10:39)
[2019-03-28] MEDS: BUSPIRONE HCL 10 MG TABLET PO SCH ×2 (10:39→21:34)
[2019-03-28] MEDS: ESCITALOPRAM OXALATE 10 MG TABLET PO SCH (10:40)
[2019-03-28] MEDS: SILDENAFIL CITRATE 20 MG TABLET PO SCH ×3 (10:41→17:40)
[2019-03-28] MEDS: FLUTICASONE/UMECLIDIN/VILANTER 100-62.5-25 MCG/DOSE IH SCH (10:42)
--- NOTE | 2019-03-28 12:30 | PDOC PROGRESS REPORT ---
Subjective Progress Note for:: 03/28/19 Subjective:: Patient slept well last night with the BiPAP. Today she complains of some shortness of breath still. Otherwise denies any chest pain. No anxiety attacks last night. Reason For Visit: ACUTE RESPIRATORY FAILURE WITH HYPOXIA AND Physical Exam Vital Signs: Temp Pulse Resp BP Pulse Ox 98.0 F 112 H 20 150/123 H 92 03/28/19 03:09 03/28/19 08:33 03/28/19 08:33 03/28/19 03:12 03/28/19 08:33 Intake & Output 03/27/19 03/28/19 03/29/19 06:59 06:59 06:59 Intake Total 655 Output Total 700 400 Balance -700 255 Weight 72.5 kg 73.1 kg General appearance: PRESENT: no acute distress, cooperative Head exam: PRESENT: normocephalic Neck exam: ABSENT: JVD Respiratory exam: PRESENT: clear to auscultation bianca, symmetrical, unlabored, other - Still seems to get a little bit winded when talking. ABSENT: tachypnea, wheezes Cardiovascular exam: PRESENT: +S1, +S2, tachycardia. ABSENT: irregular rhythm, systolic murmur GI/Abdominal exam: PRESENT: normal bowel sounds, soft. ABSENT: rigid, tenderness Neurological exam: PRESENT: alert, awake, oriented to person, oriented to place, oriented to time Results Laboratory Results: 03/28/19 05:42 03/28/19 05:42 03/28/19 03/28/19 05:42 05:42 WBC 13.2 H RBC 2.74 L Hgb 8.7 L Hct 26.7 L MCV 98 H MCH 31.8 MCHC 32.6 RDW 16.3 H Plt Count 306 Seg Neutrophils % Not Reportable Sodium 143.8 Potassium 3.8 Chloride 99 Carbon Dioxide 40 H* Anion Gap 5 BUN 17 Creatinine 0.83 Est GFR ( Amer) > 60 Glucose 93 Calcium 10.1 Magnesium 1.9 03/09/19 03/09/19 03/10/19 18:56 18:56 01:08 Creatine Kinase 52 34 CK-MB (CK-2) 5.90 H Troponin I < 0.012 NT-Pro-B Natriuret Pep 63725 H 03/10/19 03/10/19 03/10/19 01:08 07:30 07:30 Creatine Kinase 33 CK-MB (CK-2) 3.46 2.50 Troponin I < 0.012 0.013 NT-Pro-B Natriuret Pep 03/10/19 03/10/19 14:13 14:13 Creatine Kinase 39 CK-MB (CK-2) 1.43 Troponin I 0.017 NT-Pro-B Natriuret Pep Impressions: Head CT 03/09/19 19:17 IMPRESSION: No acute intracranial abnormalities. KUB X-Ray 03/13/19 00:00 IMPRESSION: NO RADIOGRAPHIC EVIDENCE FOR ACUTE ABDOMINAL DISEASE. Chest X-Ray 03/26/19 00:00 IMPRESSION: No acute cardiopulmonary process. Venous Doppler Study 03/27/19 00:00 IMPRESSION: NO EVIDENCE DVT OR SVT IN EITHER LEG. Assessment and Plan - Diagnosis (1) Acute on chronic respiratory failure with hypoxia and hypercapnia Is this a current diagnosis for this admission?: Yes Plan: Improved. Continue supplemental oxygen via nasal cannula and BiPAP at nighttime (2) Moderate to severe pulmonary hypertension Is this a current diagnosis for this admission?: Yes Plan: Continue with sildenafil 20 mg 3 times daily and digoxin 0.25 mg daily. Monitor digoxin level Monitor potassium and magnesium levels. Continue with Lasix 20 mg daily We will plan for follow-up outpatient appointment with Dr. Tony Centeno at [facility] pulmonary hypertension clinic Patient would also need pulmonary rehabilitation (3) Emphysema of lung Qualifiers: Emphysema type: centrilobular Qualified Code(s): J43.2 - Centrilobular emphysema Is this a current diagnosis for this admission?: Yes Plan: Currently started on trelegy during this admission. Plan for pulmonary rehabilitation Change albuterol to Xopenex given significant sinus tachycardia still Prednisone taper slowly. 5 mg twice daily today. We will decrease in 2 days. (4) Neutrophilic leukocytosis Is this a current diagnosis for this admission?: Yes Plan: Chest x-ray was repeated showing no acute pulmonary disease. Urinalysis shows no evidence of infection. Blood cultures negative so far. Lower extremity Dopplers were negative for blood clots. His leukocytosis is still persistent at the same level but may be secondary to prednisone and/or stress response from recent illness. (5) Anxiety and depression Is this a current diagnosis for this admission?: Yes Plan: Continue with buspirone Restarted home dose of Xanax 0.25 mg twice daily. Continue increased dose of escitalopram 15 mg daily to help with anxiety (6) Sinus tachycardia Is this a current diagnosis for this admission?: Yes Plan: Not really sure as to the cause of this but I do suspect that this may be due to right ventricular dysfunction from pulmonary hypertension with contributory eff ects from anxiety, deconditioning. No evidence of infection thus far. Digoxin should help with tachycardia associated with RV dysfunction from pulmonary hypertension. I will give patient a gentle rapid oral load today with an extra dose of 0.5 mg in 6 hours to see if any improvement and then will continue with the maintenance of 0.25 mg daily. I will also start patient on Coreg which should also help improve her systemic hypertension as well. Check d-dimer as well (7) Hypertension Is this a current diagnosis for this admission?: Yes Plan: He was started on Coreg which will also help with tachycardia. Monitor response. - Plan Summary Summary: Patient will need 30 days or less of inpatient rehab with physical therapy upon discharge. - Time Time Spent with patient: 15-24 minutes
[2019-03-28] MEDS ORDERED: ESCITALOPRAM OXALATE 10 MG TABLET PO ONE (15:30)
[2019-03-28] MEDS: CARVEDILOL 6.25 MG TABLET PO SCH ×2 (15:38→21:35)
[2019-03-28] MEDS ORDERED: DIGOXIN 0.25 MG TABLET PO ONE (16:00)
[2019-03-28] MEDS ORDERED: ALPRAZOLAM 0.5 MG TABLET PO ONE (18:52)
[2019-03-29 02:13] LABS: HEMATOCRIT 27.2 % (36.0-47.0); HEMOGLOBIN 8.8 g/dL (12.0-15.5); MEAN CORPUSCULAR HEMOGLOBIN 31.5 pg (27.0-33.4); MEAN CORPUSCULAR HGB CONC 32.4 g/dL (32.0-36.0); MEAN CORPUSCULAR VOLUME 97 fl (80-97); PLATELET COUNT 292 10^3/uL (150-450); RED CELL DISTRIBUTION WIDTH 16.4 % (11.5-14.0); WHITE BLOOD COUNT 12.5 10^3/uL (4.0-10.5)
[2019-03-29 02:33] LABS: BLOOD UREA NITROGEN 16 mg/dL (7-20); CALCIUM 9.8 mg/dL (8.4-10.2); GLUCOSE 101 mg/dL (75-110); POTASSIUM 3.8 mmol/L (3.6-5.0)
[2019-03-29 03:01] LABS: CHLORIDE 97 mmol/L (98-107)
[2019-03-29 03:11] LABS: CARBON DIOXIDE 43 mmol/L (22-30)
[2019-03-29 03:12] LABS: ANION GAP 0 (5-19)
[2019-03-29] MEDS: ALPRAZOLAM 0.25 MG TABLET PO SCH ×3 (05:29→22:13)
[2019-03-29] MEDS: HEPARIN SOD (PORCINE) 5,000 UNIT/ML 1 ML VIAL SUBCUT SCH ×3 (05:41→22:13)
[2019-03-29] MEDS: LEVALBUTEROL HCL NEB 0.63 MG/3 ML AMPUL NEB SCH ×3 (08:14→20:03)
[2019-03-29 08:53] LABS: VENOUS BLOOD BASE EXCESS 13.7 mmol/L; VENOUS BLOOD HCO3 42.2 mmol/L (20-32); VENOUS BLOOD PH 7.37 (7.30-7.42)
[2019-03-29 08:55] LABS: VENOUS BLOOD PCO2 74.3 mmHg (35-63)
--- NOTE | 2019-03-29 10:24 | PDOC PROGRESS REPORT ---
Subjective Subjective:: Patient feels well today. Still states that she gets very winded whenever she gets up to walk to the bathroom. Required a dose of Xanax yesterday for anxiety. Denies any chest pain. Denies ever noticing any fever or chills yesterday or today. When asked about the elevated temperatures documented yesterday around 3 AM, patient states that she never felt febrile at that time and that every time her temperature has been measured she has asked what it was and the temperature readings have never been high. She was surprised to hear documentation of temperatures of 102F around 3 AM yesterday. She believes it was an error in documentation which I believe as well as I was never informed of such temperatures and all subsequent temperatures and all prior temperatures have all been completely normal. Reason For Visit: ACUTE RESPIRATORY FAILURE WITH HYPOXIA AND Physical Exam Vital Signs: Temp Pulse Resp BP Pulse Ox 98.0 F 113 H 18 147/68 H 93 03/29/19 08:03 03/29/19 08:14 03/29/19 08:14 03/29/19 08:03 03/29/19 08:14 Intake & Output 03/28/19 03/29/19 03/30/19 06:59 06:59 06:59 Intake Total 655 600 Output Total 400 Balance 255 600 Weight 73.1 kg 73.3 kg General appearance: PRESENT: no acute distress, cooperative Neck exam: ABSENT: JVD Respiratory exam: PRESENT: clear to auscultation bianca, symmetrical, unlabored. ABSENT: crackles, rhonchi, tachypnea, wheezes Cardiovascular exam: PRESENT: +S1, +S2, tachycardia. ABSENT: irregular rhythm, systolic murmur GI/Abdominal exam: PRESENT: normal bowel sounds, soft. ABSENT: rebound, rigid, tenderness Neurological exam: PRESENT: alert, awake Psychiatric exam: ABSENT: agitated Results Laboratory Results: 03/29/19 02:02 03/29/19 02:02 03/29/19 03/29/19 03/29/19 02:02 02:02 08:32 WBC 12.5 H RBC 2.80 L Hgb 8.8 L Hct 27.2 L MCV 97 MCH 31.5 MCHC 32.4 RDW 16.4 H Plt Count 292 VBG pH 7.37 VBG pCO2 74.3 H* VBG HCO3 42.2 H VBG Base Excess 13.7 Sodium 139.8 Potassium 3.8 Chloride 97 L Carbon Dioxide 43 H* Anion Gap 0 L BUN 16 Creatinine 0.76 Est GFR ( Amer) > 60 Glucose 101 Calcium 9.8 Magnesium 1.8 03/26/19 12:30 Sputum Gram Stain - Final 03/26/19 12:30 Sputum Sputum Culture - Final NORMAL VALENTIN 03/09/19 03/09/19 03/10/19 18:56 18:56 01:08 Creatine Kinase 52 34 CK-MB (CK-2) 5.90 H Troponin I < 0.012 NT-Pro-B Natriuret Pep 69913 H 03/10/19 03/10/19 03/10/19 01:08 07:30 07:30 Creatine Kinase 33 CK-MB (CK-2) 3.46 2.50 Troponin I < 0.012 0.013 NT-Pro-B Natriuret Pep 03/10/19 03/10/19 14:13 14:13 Creatine Kinase 39 CK-MB (CK-2) 1.43 Troponin I 0.017 NT-Pro-B Natriuret Pep Impressions: Head CT 03/09/19 19:17 IMPRESSION: No acute intracranial abnormalities. KUB X-Ray 03/13/19 00:00 IMPRESSION: NO RADIOGRAPHIC EVIDENCE FOR ACUTE ABDOMINAL DISEASE. Chest X-Ray 03/26/19 00:00 IMPRESSION: No acute cardiopulmonary process. Venous Doppler Study 03/27/19 00:00 IMPRESSION: NO EVIDENCE DVT OR SVT IN EITHER LEG. Assessment and Plan - Diagnosis (1) Acute on chronic respiratory failure with hypoxia and hypercapnia Is this a current diagnosis for this admission?: Yes Plan: Improved. Continue supplemental oxygen via nasal cannula and BiPAP at nighttime I am increasing BiPAP settings today as VBG shows increasing PCO2 though compensated. Increasing IPAP from 12-15 and EPAP from 6-7 Patient will need trilogy upon discharge. Patient has chronic hypercarbic respiratory failure secondary to severe COPD, requiring multiple hospitalizations with intubation. Standard BiPAP therapy at home has proven ineffective to maintain acceptable PCO2 levels. Patient requires NIV with AVAPS-AE to optimize pressures for home use to help prevent further admissions, and maintain PCO2 within acceptable range. (2) Moderate to severe pulmonary hypertension Is this a current diagnosis for this admission?: Yes Plan: Continue with sildenafil 20 mg 3 times daily and digoxin 0.25 mg daily. After digoxin load yesterday, digoxin level is therapeutic this morning. Continue to monitor magnesium and potassium levels. Continue with Lasix 20 mg daily We will plan for follow-up outpatient appointment with Dr. Tony Centeno at [facility] pulmonary hypertension clinic Patient would also need pulmonary rehabilitation Given patient's persistent hypoxia with persistent sinus tachycardia and elevated d-dimer, I will order a VQ scan for evaluation of PE or CTEPH. Chest x-ray is clear. (3) Emphysema of lung Qualifiers: Emphysema type: centrilobular Qualified Code(s): J43.2 - Centrilobular emphysema Is this a current diagnosis for this admission?: Yes Plan: Currently started on trelegy during this admission. Plan for pulmonary rehabilitation Continue Xopenex Prednisone taper slowly. 5 mg twice daily today. We will decrease tomorrow. (4) Neutrophilic leukocytosis Is this a current diagnosis for this admission?: Yes Plan: Chest x-ray was repeated showing no acute pulmonary disease. Urinalysis shows no evidence of infection. Blood cultures negative so far. Lower extremity Dopplers were negative for blood clots. His leukocytosis is still persistent at the same level but may be secondary to prednisone and/or stress response from recent illness. (5) Anxiety and depression Is this a current diagnosis for this admission?: Yes Plan: Continue with buspirone and home dose of Xanax 0.25 mg twice daily. Continue increased dose of escitalopram 15 mg daily to help with anxiety (6) Sinus tachycardia Is this a current diagnosis for this admission?: Yes Plan: Not really sure as to the cause of this but I do suspect that this may be due to right ventricular dysfunction from pulmonary hypertension with contributory effects from anxiety, deconditioning. No evidence of infection thus far. Improved with digoxin load yesterday and starting on Coreg primarily started for systemic hypertension. VQ scan today to rule out pulmonary embolism and evaluation for CTEPH (7) Hypertension Is this a current diagnosis for this admission?: Yes Plan: Started Coreg this admission. Monitor response. - Plan Summary Summary: Patient will need 30 days or less of inpatient rehab with physical therapy upon discharge. Discussed plan with patient and his son who was at bedside. - Time Time Spent with patient: 15-24 minutes
[2019-03-29] MEDS: FUROSEMIDE 20 MG TABLET PO SCH (10:25)
[2019-03-29] MEDS: SILDENAFIL CITRATE 20 MG TABLET PO SCH ×3 (10:25→17:25)
[2019-03-29] MEDS: CARVEDILOL 6.25 MG TABLET PO SCH ×2 (10:25→22:12)
[2019-03-29] MEDS: PREDNISONE 5 MG TABLET PO SCH ×2 (10:26→22:13)
[2019-03-29] MEDS: BUSPIRONE HCL 10 MG TABLET PO SCH ×2 (10:26→22:12)
[2019-03-29] MEDS: DOCUSATE SODIUM 100 MG CAPSULE PO SCH ×2 (10:26→22:12)
[2019-03-29] MEDS: DIGOXIN 0.25 MG TABLET PO SCH (10:27)
[2019-03-29] MEDS: ESCITALOPRAM OXALATE 10 MG TABLET PO SCH (10:27)
[2019-03-29] MEDS: FLUTICASONE/UMECLIDIN/VILANTER 100-62.5-25 MCG/DOSE IH SCH (10:28)
[2019-03-29] MEDS ORDERED: LORAZEPAM INJ 2 MG/1 ML VIAL IV PRN (12:28)
[2019-03-30] MEDS: HEPARIN SOD (PORCINE) 5,000 UNIT/ML 1 ML VIAL SUBCUT SCH ×3 (06:24→22:17)
[2019-03-30 08:18] LABS: VENOUS BLOOD BASE EXCESS 15.8 mmol/L; VENOUS BLOOD HCO3 42.8 mmol/L (20-32); VENOUS BLOOD PH 7.41 (7.30-7.42)
[2019-03-30 08:20] LABS: VENOUS BLOOD PCO2 68.4 mmHg (35-63)
[2019-03-30] MEDS: LEVALBUTEROL HCL NEB 0.63 MG/3 ML AMPUL NEB SCH ×3 (08:31→20:23)
[2019-03-30] MEDS: SILDENAFIL CITRATE 20 MG TABLET PO SCH ×3 (08:58→17:40)
[2019-03-30] MEDS: DOCUSATE SODIUM 100 MG CAPSULE PO SCH ×2 (09:00→22:18)
[2019-03-30] MEDS: ESCITALOPRAM OXALATE 10 MG TABLET PO SCH (09:00)
[2019-03-30] MEDS: PREDNISONE 5 MG TABLET PO SCH ×2 (09:00→22:18)
[2019-03-30] MEDS: ALPRAZOLAM 0.25 MG TABLET PO SCH ×2 (09:00→22:18)
[2019-03-30] MEDS: DIGOXIN 0.25 MG TABLET PO SCH (09:00)
[2019-03-30] MEDS: FUROSEMIDE 20 MG TABLET PO SCH (09:00)
[2019-03-30] MEDS: FLUTICASONE/UMECLIDIN/VILANTER 100-62.5-25 MCG/DOSE IH SCH (09:00)
[2019-03-30] MEDS: CARVEDILOL 6.25 MG TABLET PO SCH ×2 (09:00→22:18)
[2019-03-30] MEDS: BUSPIRONE HCL 10 MG TABLET PO SCH ×2 (09:00→22:18)
--- NOTE | 2019-03-30 11:29 | PDOC PROGRESS REPORT ---
Subjective Progress Note for:: 03/30/19 Reason For Visit: ACUTE RESPIRATORY FAILURE WITH HYPOXIA AND Physical Exam Vital Signs: Temp Pulse Resp BP Pulse Ox 97.8 F 88 16 127/55 H 97 03/30/19 07:33 03/30/19 08:31 03/30/19 08:31 03/30/19 07:33 03/30/19 08:31 Intake & Output 03/29/19 03/30/19 03/31/19 06:59 06:59 06:59 Intake Total 600 240 Output Total 400 Balance 600 -160 Weight 73.3 kg 70.6 kg General appearance: PRESENT: no acute distress, cooperative Neck exam: ABSENT: JVD Respiratory exam: PRESENT: clear to auscultation bianca, tachypnea, unlabored. ABSENT: wheezes Cardiovascular exam: PRESENT: RRR, +S1, +S2. ABSENT: tachycardia GI/Abdominal exam: PRESENT: normal bowel sounds, soft. ABSENT: rigid, tenderness Neurological exam: PRESENT: alert, awake, oriented to person, oriented to place, oriented to time Psychiatric exam: PRESENT: anxious Results Laboratory Results: 03/29/19 02:02 03/29/19 02:02 03/30/19 08:10 VBG pH 7.41 VBG pCO2 68.4 H* VBG HCO3 42.8 H VBG Base Excess 15.8 03/09/19 03/09/19 03/10/19 18:56 18:56 01:08 Creatine Kinase 52 34 CK-MB (CK-2) 5.90 H Troponin I < 0.012 NT-Pro-B Natriuret Pep 64081 H 03/10/19 03/10/19 03/10/19 01:08 07:30 07:30 Creatine Kinase 33 CK-MB (CK-2) 3.46 2.50 Troponin I < 0.012 0.013 NT-Pro-B Natriuret Pep 03/10/19 03/10/19 14:13 14:13 Creatine Kinase 39 CK-MB (CK-2) 1.43 Troponin I 0.017 NT-Pro-B Natriuret Pep Impressions: Head CT 03/09/19 19:17 IMPRESSION: No acute intracranial abnormalities. KUB X-Ray 03/13/19 00:00 IMPRESSION: NO RADIOGRAPHIC EVIDENCE FOR ACUTE ABDOMINAL DISEASE. Chest X-Ray 03/26/19 00:00 IMPRESSION: No acute cardiopulmonary process. Venous Doppler Study 03/27/19 00:00 IMPRESSION: NO EVIDENCE DVT OR SVT IN EITHER LEG. Assessment and Plan - Diagnosis (1) Acute on chronic respiratory failure with hypoxia and hypercapnia Is this a current diagnosis for this admission?: Yes Plan: Improved. Continue supplemental oxygen via nasal cannula and BiPAP at nighttime Blood gas better today after increasing IPAP from 12-15 and EPAP from 6-7 Patient will need trilogy upon discharge. Patient has chronic hypercarbic respiratory failure secondary to severe COPD, requiring multiple hospitalizations with intubation. Standard BiPAP therapy at home has proven ineffective to maintain acceptable PCO2 levels. Patient requires NIV with AVAPS-AE to optimize pressures for home use to help prevent further admissions, and maintain PCO2 within acceptable range. (2) Moderate to severe pulmonary hypertension Is this a current diagnosis for this admission?: Yes Plan: Continue with sildenafil 20 mg 3 times daily and digoxin 0.25 mg daily. Continue to monitor magnesium and potassium levels. Continue with Lasix 20 mg daily We will plan for follow-up outpatient appointment with Dr. Tony Centeno at [facility] pulmonary hypertension clinic Patient would also need pulmonary rehabilitation Given patient's persistent hypoxia with persistent sinus tachycardia and elevate d d-dimer, I will order a VQ scan for evaluation of PE or CTEPH. Chest x-ray is clear. Patient refused VQ scan yesterday because she got anxious when taken downstairs. After offered to give him med ication to help with the anxiety, she had insisted yesterday that she will reattempt today. Today patient is agreeable to do the VQ with treatment of anxiety before the scan. (3) Emphysema of lung Qualifiers: Emphysema type: centrilobular Qualified Code(s): J43.2 - Centrilobular emphysema Is this a current diagnosis for this admission?: Yes Plan: Currently started on trelegy during this admission. Plan for pulmonary rehabilitation Continue Xopenex Prednisone taper slowly. Decrease to 2.5 mg every 12 hours today. (4) Neutrophilic leukocytosis Is this a current diagnosis for this admission?: Yes Plan: Chest x-ray was repeated showing no acute pulmonary disease. Urinalysis shows no evidence of infection. Blood cultures negative so far. Lower extremity Dopplers were negative for blood clots. His leukocytosis is still persistent at the same level but may be secondary to prednisone and/or stress response from recent illness. (5) Anxiety and depression Is this a current diagnosis for this admission?: Yes Plan: Continue with buspirone and home dose of Xanax 0.25 mg twice daily. Continue increased dose of escitalopram 15 mg daily to help with anxiety (6) Sinus tachycardia Is this a current diagnosis for this admission?: Yes Plan: Not really sure as to the cause of this but I do suspect that this may be due to right ventricular dysfunction from pulmonary hypertension with contributory effects from anxiety, deconditioning. No evidence of infection thus far. Improved with digoxin load yesterday and starting on Coreg primarily started for systemic hypertension. VQ scan today to rule out acute pulmonary embolism and evaluation for CTEPH (7) Hypertension Is this a current diagnosis for this admission?: Yes Plan: Started Coreg this admission. Monitor response. - Plan Summary Summary: Patient will need 30 days or less of inpatient rehab with physical therapy upon discharge. Discussed plan with patient and his son who was at bedside. - Time Time Spent with patient: Less than 15 minutes
[2019-03-30] MEDS ORDERED: LORAZEPAM 0.5 MG TABLET PO ONE (21:00)
[2019-03-30] MEDS ORDERED: ALPRAZOLAM 0.25 MG TABLET PO ONE (21:15)
--- NOTE | 2019-03-30 21:34 | RADIOLOGY REPORT (SQ) ---
EXAM DESCRIPTION: NM LUNG VENTILATION PERFUSION COMPLETED DATE/TME: 03/29/2019 00:00 CLINICAL HISTORY: 63 years, Female, persistent hypoxia. pulm htn, COMPARISON: None. RADIONUCLIDE AND DOSE: 32.4 mCi of technetium 99m DTPA and 2.63 mCi of technetium 99m MAA were administered ADDITIONAL DRUGS AND DOSES: TECHNIQUE: RADIATION DOSE: LIMITATIONS: None. FINDINGS: There are multiple small somewhat matching ventilation and perfusion defects throughout the lungs bilaterally, probably due to the patient's emphysema. There are no segmental perfusion defects. IMPRESSION: Low to intermediate probability of pulmonary embolus. copyright 2010 [employer]- All Rights Reserved
[2019-03-31] MEDS: HEPARIN SOD (PORCINE) 5,000 UNIT/ML 1 ML VIAL SUBCUT SCH ×3 (05:58→21:28)
[2019-03-31] MEDS: LEVALBUTEROL HCL NEB 0.63 MG/3 ML AMPUL NEB SCH ×3 (08:51→20:39)
[2019-03-31] MEDS: CARVEDILOL 6.25 MG TABLET PO SCH ×2 (09:04→21:27)
[2019-03-31] MEDS: SILDENAFIL CITRATE 20 MG TABLET PO SCH ×3 (09:04→16:27)
[2019-03-31] MEDS: DOCUSATE SODIUM 100 MG CAPSULE PO SCH ×2 (09:04→21:26)
[2019-03-31] MEDS: ESCITALOPRAM OXALATE 10 MG TABLET PO SCH (09:05)
[2019-03-31] MEDS: BUSPIRONE HCL 10 MG TABLET PO SCH ×2 (09:05→21:27)
[2019-03-31] MEDS: ALPRAZOLAM 0.25 MG TABLET PO SCH (09:05)
[2019-03-31] MEDS: FLUTICASONE/UMECLIDIN/VILANTER 100-62.5-25 MCG/DOSE IH SCH (09:05)
[2019-03-31] MEDS: FUROSEMIDE 20 MG TABLET PO SCH (09:05)
[2019-03-31] MEDS: DIGOXIN 0.25 MG TABLET PO SCH (09:05)
[2019-03-31] MEDS: PREDNISONE 5 MG TABLET PO SCH ×2 (09:05→21:27)
--- NOTE | 2019-03-31 12:08 | PDOC PROGRESS REPORT ---
Subjective Progress Note for:: 03/31/19 Subjective:: Patient states that her breathing is better today. Was able to tolerate some work with physical therapy today. After the patient about progressively trying to increase the amount of steps she can do. She would need aggressive physical therapy and she understands this. Denies chest pain. Reason For Visit: ACUTE RESPIRATORY FAILURE WITH HYPOXIA AND Physical Exam Vital Signs: Temp Pulse Resp BP Pulse Ox 97.8 F 102 H 18 152/75 H 97 03/31/19 06:53 03/31/19 08:51 03/31/19 08:51 03/31/19 06:53 03/31/19 08:51 Intake & Output 03/30/19 03/31/19 04/01/19 06:59 06:59 06:59 Intake Total 240 120 Output Total 400 300 Balance -160 -180 Weight 70.6 kg 71.4 kg General appearance: PRESENT: no acute distress, cooperative Head exam: PRESENT: normocephalic Neck exam: ABSENT: JVD Respiratory exam: PRESENT: clear to auscultation bianca, symmetrical, tachypnea - Is tachypneic when talking, unlabored. ABSENT: rhonchi, wheezes Cardiovascular exam: PRESENT: +S1, +S2. ABSENT: systolic murmur, tachycardia GI/Abdominal exam: PRESENT: normal bowel sounds, soft. ABSENT: rebound, rigid, tenderness Neurological exam: PRESENT: alert, awake, oriented to person, oriented to place, oriented to time Psychiatric exam: PRESENT: anxious Results Laboratory Results: 03/29/19 02:02 03/29/19 02:02 03/26/19 09:50 Blood Blood Culture - Final NO GROWTH IN 5 DAYS 03/26/19 08:41 Blood Blood Culture - Final NO GROWTH IN 5 DAYS 03/09/19 03/09/19 03/10/19 18:56 18:56 01:08 Creatine Kinase 52 34 CK-MB (CK-2) 5.90 H Troponin I < 0.012 NT-Pro-B Natriuret Pep 00097 H 03/10/19 03/10/19 03/10/19 01:08 07:30 07:30 Creatine Kinase 33 CK-MB (CK-2) 3.46 2.50 Troponin I < 0.012 0.013 NT-Pro-B Natriuret Pep 03/10/19 03/10/19 14:13 14:13 Creatine Kinase 39 CK-MB (CK-2) 1.43 Troponin I 0.017 NT-Pro-B Natriuret Pep Impressions: Head CT 03/09/19 19:17 IMPRESSION: No acute intracranial abnormalities. KUB X-Ray 03/13/19 00:00 IMPRESSION: NO RADIOGRAPHIC EVIDENCE FOR ACUTE ABDOMINAL DISEASE. Chest X-Ray 03/26/19 00:00 IMPRESSION: No acute cardiopulmonary process. Venous Doppler Study 03/27/19 00:00 IMPRESSION: NO EVIDENCE DVT OR SVT IN EITHER LEG. Lung Scan-VQ NM 03/29/19 00:00 IMPRESSION: Low to intermediate probability of pulmonary embolus. copyright 2010 [employer]- All Rights Reserved Assessment and Plan - Diagnosis (1) Acute on chronic respiratory failure with hypoxia and hypercapnia Is this a current diagnosis for this admission?: Yes Plan: Improved. Secondary to pulmonary hypertension and COPD. Continue supplemental oxygen via nasal cannula and nocturnal BiPAP 18/11. Patient has been set up for trilogy ventilator to be used at nighttime upon discharge to SNF. (2) Moderate to severe pulmonary hypertension Is this a current diagnosis for this admission?: Yes Plan: RHC done in ICU on last visit 02/17/2019 showed severe pulmonary arterial hypertension with normal wedge pressure. I have reviewed VQ scan from yesterday showing low to intermediate probability of PE. Along with negative lower extremity Dopplers, I believe there is low likelihood of CTEPH/acute PE. Continue with sildenafil 20 mg 3 times daily and digoxin 0.25 mg daily. Monitor magnesium, potassium and digoxin levels weekly. Continue with Lasix 20 mg daily Follow-up outpatient appointment with Dr. Tony Centeno at [facility] pulmonary hypertension clinic. Patient has been set up for pulmonary rehabilitation following rehab at SNF. (3) Emphysema of lung Qualifiers: Emphysema type: centrilobular Qualified Code(s): J43.2 - Centrilobular emphysema Is this a current diagnosis for this admission?: Yes Plan: Started on trelegy during this admission. Plan for pulmonary rehabilitation. Trilogy at nighttime. Continue Xopenex Prednisone taper slowly. Now down to 2.5 mg every 12 hours today and tomorrow then discontinue. (4) Anxiety and depression Is this a current diagnosis for this admission?: Yes Plan: Continue with buspirone and home dose of Xanax 0.25 mg twice daily. Continue increased dose of escitalopram 15 mg daily to help with anxiety (5) Sinus tachycardia Is this a current diagnosis for this admission?: Yes Plan: Due to RV dysfunction from pulmonary hypertension with contributory effects from anxiety, deconditioning. Currently improving No evidence of infection thus far and VQ scan with negative venous Doppler suggesting low likelihood acute pulmonary embolism or CTEPH (6) Hypertension Is this a current diagnosis for this admission?: Yes Plan: Started Coreg this admission which has also helped with tachycardia. - Time Time Spent with patient: 15-24 minutes
[2019-04-01] MEDS: ALPRAZOLAM 0.25 MG TABLET PO SCH ×3 (00:02→22:58)
[2019-04-01] MEDS: HEPARIN SOD (PORCINE) 5,000 UNIT/ML 1 ML VIAL SUBCUT SCH ×3 (06:03→21:37)
[2019-04-01] MEDS: LEVALBUTEROL HCL NEB 0.63 MG/3 ML AMPUL NEB SCH ×3 (08:09→20:10)
[2019-04-01] MEDS: DIGOXIN 0.25 MG TABLET PO SCH (09:09)
[2019-04-01] MEDS: DOCUSATE SODIUM 100 MG CAPSULE PO SCH ×2 (09:09→21:35)
[2019-04-01] MEDS: BUSPIRONE HCL 10 MG TABLET PO SCH ×2 (09:09→21:36)
[2019-04-01] MEDS: SILDENAFIL CITRATE 20 MG TABLET PO SCH ×3 (09:09→19:09)
[2019-04-01] MEDS: PREDNISONE 5 MG TABLET PO SCH ×2 (09:09→21:35)
[2019-04-01] MEDS: CARVEDILOL 6.25 MG TABLET PO SCH ×2 (09:10→21:36)
[2019-04-01] MEDS: ESCITALOPRAM OXALATE 10 MG TABLET PO SCH (09:10)
[2019-04-01] MEDS: FUROSEMIDE 20 MG TABLET PO SCH (09:10)
[2019-04-01] MEDS: FLUTICASONE/UMECLIDIN/VILANTER 100-62.5-25 MCG/DOSE IH SCH (09:11)
--- NOTE | 2019-04-01 15:55 | PDOC PROGRESS REPORT ---
Subjective Progress Note for:: 04/01/19 Subjective:: Breathing appears to be at baseline. She has no new complaints. Reason For Visit: ACUTE RESPIRATORY FAILURE WITH HYPOXIA AND Physical Exam Vital Signs: Temp Pulse Resp BP Pulse Ox 98.1 F 86 18 134/60 H 94 04/01/19 11:02 04/01/19 14:00 04/01/19 13:59 04/01/19 11:02 04/01/19 11:02 Intake & Output 03/31/19 04/01/19 04/02/19 06:59 06:59 06:59 Intake Total 120 480 100 Output Total 300 2 Balance -180 478 100 Weight 71.4 kg 72.3 kg General appearance: PRESENT: no acute distress, cooperative, well-developed Head exam: PRESENT: atraumatic, normocephalic Respiratory exam: PRESENT: decreased breath sounds - Breath sounds are very distant, symmetrical, unlabored. ABSENT: tachypnea, wheezes Cardiovascular exam: PRESENT: RRR, +S1, +S2 GI/Abdominal exam: PRESENT: normal bowel sounds, soft. ABSENT: distended, tenderness Rectal exam: PRESENT: deferred Extremities exam: ABSENT: pedal edema Musculoskeletal exam: PRESENT: ambulatory, normal inspection Neurological exam: PRESENT: alert, awake, oriented to person, oriented to place, oriented to time, oriented to situation, CN II-XII grossly intact. ABSENT: motor sensory deficit Psychiatric exam: PRESENT: flat affect. ABSENT: agitated, anxious Results Laboratory Results: 03/29/19 02:02 03/29/19 02:02 03/09/19 03/09/19 03/10/19 18:56 18:56 01:08 Creatine Kinase 52 34 CK-MB (CK-2) 5.90 H Troponin I < 0.012 NT-Pro-B Natriuret Pep 37299 H 03/10/19 03/10/19 03/10/19 01:08 07:30 07:30 Creatine Kinase 33 CK-MB (CK-2) 3.46 2.50 Troponin I < 0.012 0.013 NT-Pro-B Natriuret Pep 03/10/19 03/10/19 14:13 14:13 Creatine Kinase 39 CK-MB (CK-2) 1.43 Troponin I 0.017 NT-Pro-B Natriuret Pep Impressions: Head CT 03/09/19 19:17 IMPRESSION: No acute intracranial abnormalities. KUB X-Ray 03/13/19 00:00 IMPRESSION: NO RADIOGRAPHIC EVIDENCE FOR ACUTE ABDOMINAL DISEASE. Chest X-Ray 03/26/19 00:00 IMPRESSION: No acute cardiopulmonary process. Venous Doppler Study 03/27/19 00:00 IMPRESSION: NO EVIDENCE DVT OR SVT IN EITHER LEG. Lung Scan-VQ NM 03/29/19 00:00 IMPRESSION: Low to intermediate probability of pulmonary embolus. copyright 2010 [employer]- All Rights Reserved Assessment and Plan - Diagnosis (1) Acute on chronic respiratory failure with hypoxia and hypercapnia Is this a current diagnosis for this admission?: Yes Plan: 04/01/2019-she is on BiPAP at night at 15/7 with oxygen bleed in. She is on oxygen 2 L/min during the day. Her trilogy ventilator has arrived. The patient will be transferring to [facility] tomorrow. She will be on her trilogy for 8 hours at night with a 2 L oxygen bleed in. She is on continuous oxygen 2 L/min during the day. We will continue inhaler therapy. (2) Moderate to severe pulmonary hypertension Is this a current diagnosis for this admission?: Yes Plan: 04/01/2019-the patient is currently on sildenafil 20 mg 3 times a day and digoxin 250 mcg daily. We are monitoring her electrolytes. She is also on furosemide 20 mg daily. Because of the severity of her pulmonary hypertension she has been set up with an outpatient appointment with Dr. Tony Centeno at [facility] pulmonary hypertension clinic. She will [facility]. (3) Emphysema of lung Qualifiers: Emphysema type: centrilobular Qualified Code(s): J43.2 - Centrilobular emphysema Is this a current diagnosis for this admission?: Yes Plan: 04/01/2019-she continues on BiPAP. She developed pulmonary hypertension at the nursing home facility. Continue Xopenex with prednisone taper. (4) Anxiety and depression Is this a current diagnosis for this admission?: Yes Plan: 04/01/2019-continue BuSpar and Xanax. Escitalopram is now 15 mg a day. (5) Sinus tachycardia Is this a current diagnosis for this admission?: Yes Plan: 04/01/2019-suspected to be due to right ventricular dysfunction as result of her severe pulmonary hypertension. Anxiety also contributing. She is on carvedilol which will help with hypertension and tachycardia. V/Q scan was low probability. (6) Hypertension Qualifiers: Hypertension type: essential hypertension Qualified Code(s): I10 - Essential (primary) hypertension Is this a current diagnosis for this admission?: Yes Plan: 04/01/2019-as noted above she is on carvedilol as well as furosemide. Continue to monitor blood pressure. - Time Time Spent with patient: 15-24 minutes Medications reviewed and adjusted accordingly: Yes Anticipated discharge: SNF Within: within 24 hours
[2019-04-02] MEDS: HEPARIN SOD (PORCINE) 5,000 UNIT/ML 1 ML VIAL SUBCUT SCH (06:24)
[2019-04-02] MEDS: LEVALBUTEROL HCL NEB 0.63 MG/3 ML AMPUL NEB SCH (08:14)
[2019-04-02] MEDS: SILDENAFIL CITRATE 20 MG TABLET PO SCH (08:42)
[2019-04-02 09:58] VITALS: BP 137/80
[2019-04-02] MEDS: PREDNISONE 5 MG TABLET PO SCH (10:01)
[2019-04-02] MEDS: FUROSEMIDE 20 MG TABLET PO SCH (10:01)
[2019-04-02] MEDS: DIGOXIN 0.25 MG TABLET PO SCH (10:02)
[2019-04-02] MEDS: ESCITALOPRAM OXALATE 10 MG TABLET PO SCH (10:02)
[2019-04-02] MEDS: DOCUSATE SODIUM 100 MG CAPSULE PO SCH (10:03)
[2019-04-02] MEDS: CARVEDILOL 6.25 MG TABLET PO SCH (10:03)
[2019-04-02] MEDS: BUSPIRONE HCL 10 MG TABLET PO SCH (10:03)
[2019-04-02] MEDS: FLUTICASONE/UMECLIDIN/VILANTER 100-62.5-25 MCG/DOSE IH SCH (10:04)
--- NOTE | 2019-04-02 10:35 | PDOC TRANSFER SUMMARY ---
Impression - Admit/DC Date/PCP Admission Date/Primary Care Provider: 03/09/19 22:26 MAN ESPINOZA MD Discharge Date: 04/02/19 - Discharge Diagnosis (1) Acute on chronic respiratory failure with hypoxia and hypercapnia Is this a current diagnosis for this admission?: Yes (2) Moderate to severe pulmonary hypertension Is this a current diagnosis for this admission?: Yes (3) Emphysema of lung Is this a current diagnosis for this admission?: Yes (4) Anxiety and depression Is this a current diagnosis for this admission?: Yes (5) Sinus tachycardia Is this a current diagnosis for this admission?: Yes (6) Hypertension Is this a current diagnosis for this admission?: Yes - Assessment Summary: The patient was admitted to the intensive care unit for acute on chronic respiratory failure requiring intubation and mechanical ventilation. She was subsequently decannulated and is currently stable on IMCU. It was discovered that she has severe pulmonary hypertension. She has been doing well on BiPAP at night and continuous oxygen during the day. She is transferring to senior care facility ([facility]). This will be for rehab and strengthening as we ll as pulmonary rehab. In addition she has an appointment at [facility] pulmonary hypertension clinic post discharge. She is stable on her current medication regimen. - Additional Information Resuscitation Status: Full Code Discharge Diet: Cardiac Discharge Activity: Activity As Tolerated Referrals: MAN ESPINOZA MD [Primary Care Provider] - Follow up as needed ORALIA NOEL MD [ACTIVE STAFF] - 04/07/19 1:30 pm DANIAL HALL MD [ACTIVE STAFF] - 04/08/19 11:00 am Home Medications: Alprazolam [Xanax 0.25 mg Tablet] 0.25 mg PO Q12 02/12/19 Cetirizine HCl [Zyrtec 10 mg Tablet] 10 mg PO DAILY 02/12/19 Buspirone HCl [Buspar 10 mg Tablet] 5 mg PO Q12 tablet 04/02/19 Carvedilol [Coreg 6.25 mg Tablet] 6.25 mg PO Q12 tablet 04/02/19 Digoxin [Lanoxin 0.25 mg Tablet] 0.25 mg PO DAILY tablet 04/02/19 Docusate Sodium [Colace 100 mg Capsule] 100 mg PO Q12 capsule 04/02/19 Escitalopram Oxalate [Lexapro 10 mg Tablet] 15 mg PO DAILY tablet 04/02/19 Fluticasone/Umeclidin/Vilanter [Trelegy 100-62.5-25 Mcg Ellipta 14 Dose/Dpi] 1 inh IH DAILY inhaler 04/02/19 Furosemide [Lasix 20 mg Tablet] 20 mg PO DAILY tablet 04/02/19 Levalbuterol HCl [Xopenex Neb 0.63 mg/3 ml Ampul] 0.63 mg NEB [id number] vial.neb 04/02/19 Prednisone [Deltasone 5 mg Tablet] 2.5 mg PO Q12 tablet 04/02/19 Sildenafil Citrate [Revatio 20 mg Tablet] 20 mg PO MEALS tablet 04/02/19 History of Present Illiness History of Present Illness: CECILE BERRIOS is a 63 year old female with a complex past medical history. She had experienced several similar episodes of difficulty breathing in the past. Evaluation the emergency department revealed patient was hypercapnic. She was started on BiPAP but soon progressed to intubation with mechanical ventilation. She was admitted to the intensive care unit. Hospital Course Hospital Course: The patient had a complex hospital course. She was initially admitted to the intensive care unit. She required intubation and mechanical ventilation. Slowly she was weaned and successfully extubated. During her ongoing evaluation in the intensive care unit she was found to have moderate to severe pulmonary hypertension. She was continued on sildenafil but digoxin and carvedilol were added. She was found to be in atrial fibrillation. When her breathing improved enough she was transferred to the [facility]. On the IMCU she has been stabilized with BiPAP approximately 8 hours at night with 2 L oxygen bleed in. She remains on 2 L per nasal cannula continuous during the day. She is still quite debilitated and has very limited exercise capacity. Her blood pressure is reasonably controlled. She has an occasional pulse rate greater than 100 but less than 110. She may require increased dosing of her carvedilol. She is transferring to a senior care facility for pulmonary rehab and strengthening. She does have a follow-up appointment with her multiple providers as well as Dr. Centeno at the [facility] pulmonary hypertension clinic. Physical Exam Vital Signs: Temp Pulse Resp BP Pulse Ox 98.3 F 98 19 137/80 H 92 04/02/19 08:07 04/02/19 08:14 04/02/19 08:14 04/02/19 08:07 04/02/19 08:14 Intake & Output 04/01/19 04/02/19 04/03/19 06:59 06:59 06:59 Intake Total 480 400 Output Total 2 Balance 478 400 Weight 72.3 kg 70.1 kg General appearance: PRESENT: no acute distress, cooperative, well-developed Head exam: PRESENT: atraumatic, normocephalic Eye exam: PRESENT: conjunctiva pale. ABSENT: scleral icterus Ear exam: PRESENT: normal external ear exam. ABSENT: bleeding, drainage Mouth exam: PRESENT: moist, tongue midline Respiratory exam: PRESENT: clear to auscultation bianca, symmetrical, unlabored, other - Distant breath sounds. ABSENT: tachypnea, wheezes Cardiovascular exam: PRESENT: RRR, +S1, +S2 GI/Abdominal exam: PRESENT: normal bowel sounds, soft. ABSENT: distended, tenderness Rectal exam: PRESENT: deferred Musculoskeletal exam: PRESENT: ambulatory, normal inspection Neurological exam: PRESENT: alert, awake, oriented to person, oriented to place, oriented to time, oriented to situation, CN II-XII grossly intact Psychiatric exam: PRESENT: appropriate affect. ABSENT: agitated, anxious Focused psych exam: ABSENT: delusional, restlessness Skin exam: PRESENT: dry, normal color, warm. ABSENT: rash Results Laboratory Results: WBC 12.5 10^3/uL (4.0-10.5) H 03/29/19 02:02 RBC 2.80 10^6/uL (3.72-5.28) L 03/29/19 02:02 Hgb 8.8 g/dL (12.0-15.5) L 03/29/19 02:02 Hct 27.2 % (36.0-47.0) L 03/29/19 02:02 MCV 97 fl (80-97) 03/29/19 02:02 MCH 31.5 pg (27.0-33.4) 03/29/19 02:02 MCHC 32.4 g/dL (32.0-36.0) 03/29/19 02:02 RDW 16.4 % (11.5-14.0) H 03/29/19 02:02 Plt Count 292 10^3/uL (150-450) 03/29/19 02:02 Lymph % (Auto) Not Reportable 03/28/19 05:42 [place] % (Auto) Not Reportable 03/28/19 05:42 Eos % (Auto) Not Reportable 03/28/19 05:42 Baso % (Auto) Not Reportable 03/28/19 05:42 Absolute Neuts (auto) Not Reportable 03/28/19 05:42 Absolute Lymphs (auto) Not Reportable 03/28/19 05:42 Absolute Monos (auto) Not Reportable 03/28/19 05:42 Absolute Eos (auto) Not Reportable 03/28/19 05:42 Absolute Basos (auto) Not Reportable 03/28/19 05:42 Total Counted 100 03/28/19 05:42 Seg Neutrophils % Not Reportable 03/28/19 05:42 Seg Neuts % (Manual) 75 % (42-78) 03/28/19 05:42 Band Neutrophils % 1 % (3-5) L 03/28/19 05:42 Lymphocytes % (Manual) 16 % (13-45) 03/28/19 05:42 Monocytes % (Manual) 8 % (3-13) 03/28/19 05:42 Eosinophils % (Manual) 0 % (0-6) 03/28/19 05:42 Basophils % (Manual) 0 % (0-2) 03/28/19 05:42 Metamyelocytes % 1 % (0-1) 03/22/19 05:35 Abs Neuts (Manual) 10.0 10^3/uL (1.7-8.2) H 03/28/19 05:42 Abs Lymphs (Manual) 2.1 10^3/uL (0.5-4.7) 03/28/19 05:42 Abs Monocytes (Manual) 1.1 10^3/uL (0.1-1.4) 03/28/19 05:42 Absolute Eos (Manual) 0.0 10^3/uL (0.0-0.6) 03/28/19 05:42 Abs Basophils (Manual) 0.0 10^3/uL (0.0-0.2) 03/28/19 05:42 Nucleated RBCs 1 /100 WBC (0) 03/28/19 05:42 Toxic Granulation SLIGHT 03/28/19 05:42 Toxic Vacuolation PRESENT 03/26/19 03:51 Platelet Estimate Cancelled 03/09/19 18:56 Platelet Comment ADEQUATE 03/28/19 05:42 Polychromasia 1+ 03/25/19 04:34 Poikilocytosis SLIGHT 03/28/19 05:42 Anisocytosis 1+ 03/28/19 05:42 Macrocytosis SLIGHT 03/24/19 10:16 Tear Drop Cells SLIGHT 03/19/19 03:45 Ovalocytes SLIGHT 03/28/19 05:42 Stomatocytes 3+ 03/27/19 05:01 Schistocytes SLIGHT 03/28/19 05:42 ESR 58 mm/hr (0-30) H 03/26/19 08:41 D-Dimer 1.03 ug/mL (0.00-0.50) H 03/28/19 14:43 Carbonic Acid 2.00 mmol/L (1.05-1.35) H 03/20/19 11:54 HCO3/H2CO3 Ratio 17:1 03/20/19 11:54 ABG pH 7.34 (7.35-7.45) L 03/20/19 11:54 ABG pCO2 66.5 mmHg (35-45) H 03/20/19 11:54 ABG pO2 74.9 mmHg (80-100) L 03/20/19 11:54 ABG HCO3 35.4 mmol/L (20-24) H 03/20/19 11:54 ABG Total CO2 37.4 mmol/L (21-25) H 03/20/19 11:54 ABG O2 Saturation 93.8 % (94-98) L 03/20/19 11:54 ABG Base Excess 7.6 mmol/L 03/20/19 11:54 VBG pH 7.41 (7.30-7.42) 03/30/19 08:10 VBG pCO2 68.4 mmHg (35-63) H* 03/30/19 08:10 VBG HCO3 42.8 mmol/L (20-32) H 03/30/19 08:10 VBG Base Excess 15.8 mmol/L 03/30/19 08:10 FiO2 48% 03/20/19 11:54 Sodium 139.8 mmol/L (137-145) 03/29/19 02:02 Potassium 3.8 mmol/L (3.6-5.0) 03/29/19 02:02 Chloride 97 mmol/L (98-107) L 03/29/19 02:02 Carbon Dioxide 43 mmol/L (22-30) H* 03/29/19 02:02 Anion Gap 0 (5-19) L 03/29/19 02:02 BUN 16 mg/dL (7-20) 03/29/19 02:02 Creatinine 0.76 mg/dL (0.52-1.25) 03/29/19 02:02 Est GFR ( Amer) > 60 (>60) 03/29/19 02:02 Est GFR (Non-Af Amer) Cancelled 03/24/19 21:25 Est GFR (MDRD) Non-Af > 60 (>60) 03/29/19 02:02 Glucose 101 mg/dL (75-110) 03/29/19 02:02 POC Glucose 103 mg/dL (70-110) 03/19/19 16:53 Calcium 9.8 mg/dL (8.4-10.2) 03/29/19 02:02 Phosphorus 2.3 mg/dL (2.5-4.5) L 03/27/19 05:01 Magnesium 1.8 mg/dL (1.6-2.3) 03/29/19 02:02 Total Bilirubin 0.4 mg/dL (0.2-1.3) 03/24/19 10:16 Direct Bilirubin 0.1 mg/dL (0.0-0.4) 03/24/19 10:16 Neonat Total Bilirubin Not Reportable 03/24/19 10:16 Neonat Direct Bilirubin Not Reportable 03/24/19 10:16 Neonat Indirect Bili Not Reportable 03/24/19 10:16 AST 29 U/L (14-36) 03/24/19 10:16 ALT 23 U/L (<35) 03/24/19 10:16 Alkaline Phosphatase 72 U/L (38-126) 03/24/19 10:16 Ammonia 17.0 umol/L (9-33) 03/18/19 04:08 Creatine Kinase 39 U/L (30-135) 03/10/19 14:13 CK-MB (CK-2) 1.43 ng/mL (<4.55) 03/10/19 14:13 Troponin I 0.017 ng/mL 03/10/19 14:13 C-Reactive Protein < 5.0 mg/L (<10.0) 03/26/19 03:51 NT-Pro-B Natriuret Pep 91055 pg/mL (<125) H 03/09/19 18:56 Total Protein 7.7 g/dL (6.3-8.2) 03/24/19 10:16 Albumin 4.0 g/dL (3.5-5.0) 03/24/19 10:16 Triglycerides 113 mg/dL (<150) 03/18/19 04:08 EGFR Cancelled 03/24/19 21:25 Urine Color YELLOW 03/09/19 19:13 Urine Appearance CLOUDY 03/09/19 19:13 Urine pH 5.0 (5.0-9.0) 03/09/19 19:13 Ur Specific [place] 1.017 03/09/19 19:13 Urine Protein 100 mg/dL (NEGATIVE) H 03/09/19 19:13 Urine Glucose (UA) NEGATIVE mg/dL (NEGATIVE) 03/09/19 19:13 Urine Ketones NEGATIVE mg/dL (NEGATIVE) 03/09/19 19:13 Urine Blood NEGATIVE (NEGATIVE) 03/09/19 19:13 Urine Nitrite (Reflex) NEGATIVE (NEGATIVE) 03/09/19 19:13 Urine Bilirubin NEGATIVE (NEGATIVE) 03/09/19 19:13 Urine Urobilinogen NEGATIVE mg/dL (<2.0) 03/09/19 19:13 Leukocyte Esterase Rfl NEGATIVE (NEGATIVE) 03/09/19 19:13 Urine Bacteria (Auto) 3+ /HPF 03/09/19 19:13 Urine WBC (Reflex) 3 /HPF 03/09/19 19:13 Squamous Epi Cells Auto FEW /HPF 03/09/19 19:13 Urine Ascorbic Acid NEGATIVE (NEGATIVE) 03/09/19 19:13 Digoxin 1.37 ng/mL (0.8-2.0) 03/29/19 02:02 Urine Opiates Screen NEGATIVE 03/09/19 19:13 Urine Methadone Screen NEGATIVE 03/09/19 19:13 Ur Barbiturates Screen NEGATIVE 03/09/19 19:13 Ur Phencyclidine Scrn NEGATIVE 03/09/19 19:13 Ur Amphetamines Screen NEGATIVE 03/09/19 19:13 U Benzodiazepines Scrn UNCONFIRMED POSITIVE 03/09/19 19:13 Urine Cocaine Screen NEGATIVE 03/09/19 19:13 U Marijuana (THC) Screen NEGATIVE 03/09/19 19:13 Influenza A (Rapid) NEGATIVE (NEGATIVE) 03/10/19 17:20 Influenza Type A Ab Cancelled 03/10/19 17:20 Influenza B (Rapid) NEGATIVE (NEGATIVE) 03/10/19 17:20 Influenza Type B Ab Cancelled 03/10/19 17:20 Slides for Path Review Cancelled 03/09/19 18:56 03/09/19 03/10/19 03/10/19 18:56 01:08 07:30 CK-MB (CK-2) 5.90 H 3.46 2.50 Troponin I < 0.012 < 0.012 0.013 NT-Pro-B Natriuret Pep 20213 H 03/10/19 14:13 CK-MB (CK-2) 1.43 Troponin I 0.017 NT-Pro-B Natriuret Pep Impressions: Chest X-Ray 03/09/19 18:56 IMPRESSION: Tubular opacities at the right lower lung could be secondary to bronchial wall thickening of unknown age. Head CT 03/09/19 19:17 IMPRESSION: No acute intracranial abnormalities. Chest X-Ray 03/10/19 01:00 IMPRESSION: STABLE APPEARANCE OF THE CHEST. SUPPORT DEVICES UNCHANGED. KUB X-Ray 03/13/19 00:00 IMPRESSION: NO RADIOGRAPHIC EVIDENCE FOR ACUTE ABDOMINAL DISEASE. Chest X-Ray 03/19/19 06:00 IMPRESSION: STABLE APPEARANCE OF THE CHEST. SUPPORT DEVICES UNCHANGED. Chest X-Ray 03/22/19 06:00 IMPRESSION: No acute infiltrates. Lucent upper lobes from obstructive disease. Stable mild cardiomegaly Chest X-Ray 03/26/19 00:00 IMPRESSION: No acute cardiopulmonary process. Venous Doppler Study 03/27/19 00:00 IMPRESSION: NO EVIDENCE DVT OR SVT IN EITHER LEG. Lung Scan-VQ NM 03/29/19 00:00 IMPRESSION: Low to intermediate probability of pulmonary embolus. copyright 2011 [employer]- All Rights Reserved Plan Health Concerns: Pulmonary hypertension Plan of Treatment: Transfer to [facility] for physical therapy and pulmonary rehab. Follow-up at the [facility] pulmonary hypertension clinic. Goals: Increased function and exercise capacity. Time Spent: Greater than 30 Minutes Stroke Is this a Stroke Patient?: No Acute Heart Failure - Is this a Heart Failure Patient?: No
[2019-04-02] MEDS: ALPRAZOLAM 0.25 MG TABLET PO SCH (12:38)
== END 2019-04-02 13:20 | disposition short-term general hospital (02) | DRG 207 ==
LOC: ER 18:13 → EH 22:26 → ICU 03-10 00:04 → 3W 03-26 18:02
PROVIDERS: ADMIT Internal Medicine; ATTEND Internal Medicine
PROC: 5A1955Z Respiratory Ventilation, Greater than 96 Consecutive Hours (ICD-10-PCS; principal; 2019-03-09)
PROC: 0BH17EZ Insertion of Endotracheal Airway into Trachea, Via Natural or Artificial Opening (ICD-10-PCS; 2019-03-09)
PROC: 5A09557 Assistance with Respiratory Ventilation, Greater than 96 Consecutive Hours, Continuous Positive Airway Pressure (ICD-10-PCS; 2019-03-19)
DX: J96.21 Acute and chronic respiratory failure with hypoxia (principal); G93.41 Metabolic encephalopathy; I13.0 Hypertensive heart and chronic kidney disease with heart failure and stage 1 through stage 4 chronic kidney disease, or unspecified chronic kidney disease; N17.9 Acute kidney failure, unspecified; J96.22 Acute and chronic respiratory failure with hypercapnia; F41.9 Anxiety disorder, unspecified; F32.9 Major depressive disorder, single episode, unspecified; R00.0 Tachycardia, unspecified; I50.813 Acute on chronic right heart failure; N18.3 Chronic kidney disease, stage 3 (moderate); J43.2 Centrilobular emphysema; I27.23 Pulmonary hypertension due to lung diseases and hypoxia; R33.9 Retention of urine, unspecified; G89.29 Other chronic pain; Z78.1 Physical restraint status; Z79.899 Other long term (current) drug therapy; Z87.891 Personal history of nicotine dependence
CPT/HCPCS: 36415; 51702; 70450; 71045; 74018; 78582; 80048; 80053; 80162; 80307; 81001; 82140; 82550; 82553; 82803; 82962; 83735; 83880; 84100; 84478; 84484; 85025; 85027; 85379; 85652; 86140; 87040; 87070; 87205; 87804; 93005; 93010; 93970; 94002; 94003; 94150; 94640; 94660; 94799; 96365; 96367; 96375; 99233; 99291; A9540; A9567; C1887; C9113; J0360; J0692; J1644; J1940; J2060; J2250; J2704; J2765; J2920; J2930; J3010; J3370; J3475; J3490; J7060; J7120; J7512; J7614; J7620; Q9969

== ENCOUNTER 2019-05-05 09:56 | Inpatient (IN) | payer BC ==
[2019-05-05 10:43] LABS: ABSOLUTE EOSINOPHILS # (AUTO) 0.2 10^3/uL (0.0-0.6); ABSOLUTE LYMPHOCYTES (AUTO) 0.6 10^3/uL (0.5-4.7); BASOPHILS % (AUTO) 0.4 % (0-2); EOSINOPHILS % (AUTO) 1.6 % (0-6); HEMATOCRIT 31.8 % (36.0-47.0); HEMOGLOBIN 10.7 g/dL (12.0-15.5); LYMPHOCYTES % (AUTO) 5.8 % (13-45); MEAN CORPUSCULAR HEMOGLOBIN 32.1 pg (27.0-33.4); MEAN CORPUSCULAR HGB CONC 33.5 g/dL (32.0-36.0); MEAN CORPUSCULAR VOLUME 96 fl (80-97); MONOCYTES % (AUTO) 9.2 % (3-13); PLATELET COUNT 344 10^3/uL (150-450); RED BLOOD COUNT 3.32 10^6/uL (3.72-5.28); RED CELL DISTRIBUTION WIDTH 13.8 % (11.5-14.0); TOTAL CELLS COUNTED % (AUTO) 100 %; WHITE BLOOD COUNT 10.8 10^3/uL (4.0-10.5)
[2019-05-05 11:00] LABS: ALBUMIN 3.5 g/dL (3.5-5.0); ALKALINE PHOSPHATASE 82 U/L (38-126); ASPARTATE AMINO TRANSFERASE 20 U/L (14-36); BILIRUBIN,DIRECT 0.2 mg/dL (0.0-0.4); BILIRUBIN,TOTAL 0.5 mg/dL (0.2-1.3); BLOOD UREA NITROGEN 15 mg/dL (7-20); CALCIUM 9.6 mg/dL (8.4-10.2); CHLORIDE 95 mmol/L (98-107); GLUCOSE 119 mg/dL (75-110); POTASSIUM 3.9 mmol/L (3.6-5.0)
[2019-05-05 11:06] LABS: ANION GAP 7 (5-19)
[2019-05-05 11:08] LABS: CARBON DIOXIDE 40 mmol/L (22-30)
--- NOTE | 2019-05-05 11:26 | RADIOLOGY REPORT (SQ) ---
EXAM DESCRIPTION: CHEST SINGLE VIEW COMPLETED DATE/TIME: 05/05/2019 11:01 am REASON FOR STUDY: dyspnea COMPARISON: 03/26/2019. EXAM PARAMETERS: NUMBER OF VIEWS: One view. TECHNIQUE: Single frontal radiographic view of the chest acquired. RADIATION DOSE: NA LIMITATIONS: None. FINDINGS: LUNGS AND PLEURA: No opacities, masses or pneumothorax. No pleural effusion. MEDIASTINUM AND HILAR STRUCTURES: No masses. Contour normal. HEART AND VASCULAR STRUCTURES: Heart upper limits of normal in size. Normal vasculature. BONES: No acute findings. HARDWARE: None in the chest. OTHER: No other significant finding. IMPRESSION: NO ACUTE RADIOGRAPHIC FINDING IN THE CHEST. TECHNICAL DOCUMENTATION: JOB ID: [id number]- All Rights Reserved Reading location - IP/workstation name: [email or web address]
--- NOTE | 2019-05-05 12:33 | ER Document Report ---
ED General - General Chief Complaint: Shortness Of Breath Stated Complaint: WEAKNESS Time Seen by Provider: 05/05/19 11:59 Primary Care Provider: MAN ESPINOZA MD [Primary Care Provider] - Follow up as needed TRAVEL OUTSIDE OF THE [place] IN LAST 30 DAYS: No - HPI Notes: Patient presents with 7 days progressive shortness of breath and absence of any cough congestion fevers or chest pain. She states that she has a history of COPD is on 2 L 27/11 has not smoked in many years. She states that she has not taken her Viagra in the last 7 days as well due to cost. She had a follow-up appoint with Dr. Latif today she was found to have oxygen saturation in the 50s was provided oxygen and sent to the emergency department for evaluation. - Related Data Allergies/Adverse Reactions: No Known Allergies Allergy (Verified 01/18/18 18:24) Past Medical History - Social History Smoking Status: Former Smoker Family History: COPD, DM, Hypertension, Malignancy. denies: Arthritis, CAD, CVA, Hyperlipidemia, Thyroid Disfunction Patient has suicidal ideation: No Patient has homicidal ideation: No - Past Medical History Cardiac Medical History: Reports: Hx Congestive Heart Failure, Hx Hypertension Denies: Hx Atrial Fibrillation, Hx Coronary Artery Disease, Hx DVT, Hx Heart Attack, Hx Pulmonary Embolism Pulmonary Medical History: Reports: Hx Bronchitis, Hx COPD, Hx Respiratory Failure Neurological Medical History: Denies: Hx Seizures Endocrine Medical History: Denies: Hx Diabetes Mellitus Type 1, Hx Diabetes Mellitus Type 2, Hx Hyperthyroidism, Hx Hypothyroidism Renal/ Medical History: Denies: Hx Peritoneal Dialysis GI Medical History: Denies: Hx Cirrhosis, Hx Crohn's Disease, Hx Hepatitis, Hx Ulcerative Colitis Musculoskeletal Medical History: Denies Hx Arthritis, Denies Hx Fibromyalgia, Denies Hx Gout Skin Medical History: Denies Hx Eczema, Denies Hx Psoriasis Psychiatric Medical History: Reports: Hx Depression Infectious Medical History: Denies: Hx Hepatitis Past Surgical History: Reports: Hx Hysterectomy - Immunizations Hx Diphtheria, Pertussis, Tetanus Vaccination: Yes Review of Systems - Review of Systems Constitutional: No symptoms reported EENT: No symptoms reported Cardiovascular: No symptoms reported Respiratory: See HPI Gastrointestinal: No symptoms reported Genitourinary: No symptoms reported Female Genitourinary: No symptoms reported Musculoskeletal: No symptoms reported Skin: No symptoms reported Hematologic/Lymphatic: No symptoms reported Neurological/Psychological: No symptoms reported Physical Exam - Vital signs Vitals: Temp Pulse Resp BP Pulse Ox 97.6 F 89 32 H 122/69 100 05/05/19 10:15 05/05/19 10:15 05/05/19 10:15 05/05/19 10:15 05/05/19 10:15 - General General appearance: Appears well, Alert - HEENT Head: Normocephalic, Atraumatic - Respiratory Respiratory status: No respiratory distress Chest status: Nontender Breath sounds: Decreased air movement Chest palpation: Normal - Cardiovascular Rhythm: Regular Heart sounds: Normal auscultation Murmur: No - Abdominal Inspection: Normal Distension: No distension Bowel sounds: Normal Tenderness: Nontender - Back Back: Normal - Neurological Neuro grossly intact: Yes Cognition: Normal Orientation: AAOx4 - Psychological Associated symptoms: Normal affect Course - Re-evaluation Re-evalutation: 05/05/19 13:39 Admit for COPD exacerbation - Vital Signs Vital signs: Temp Pulse Resp BP Pulse Ox 97.6 F 89 26 H 123/72 95 05/05/19 10:15 05/05/19 10:15 05/05/19 13:01 05/05/19 13:01 05/05/19 13:01 - Laboratory Result Diagrams: 05/05/19 10:13 05/05/19 10:13 Laboratory results interpreted by me: 05/05/19 05/05/19 10:13 10:13 WBC 10.8 H RBC 3.32 L Hgb 10.7 L Hct 31.8 L Lymph % (Auto) 5.8 L Absolute Neuts (auto) 9.0 H Seg Neutrophils % 83.0 H Chloride 95 L Carbon Dioxide 40 H* Est GFR (MDRD) Non-Af 54 L Glucose 119 H - EKG Interpretation by Me Additional EKG results interpreted by me: 05/05/19 12:33 Time 10:26 AM Rate of 89, sinus rhythm, normal axis and intervals, nonspecific ST-T wave abnormalities Discharge - Discharge Clinical Impression: COPD exacerbation Condition: Fair Disposition: ADMITTED INPATIENT Admitting Provider: Sneha Unit Admitted: Telemetry
[2019-05-05] MEDS ORDERED: ALBUTEROL SULFATE 0.083% NEB 2.5 MG/3 ML AMPUL NEB ONE (12:36)
[2019-05-05] MEDS ORDERED: IPRATROPIUM BROMIDE 0.02% NEB 0.5 MG/2.5 ML AMPUL NEB ONE (12:36)
[2019-05-05] MEDS ORDERED: PREDNISONE 20 MG TABLET PO ONE (12:37)
[2019-05-05] MEDS ORDERED: DOXYCYCLINE HYCLATE INJ 100 MG VIAL IV ONE (12:37)
--- NOTE | 2019-05-05 13:16 | EKG REPORT ---
SEVERITY:- BORDERLINE ECG - SINUS RHYTHM RIGHT AXIS DEVIATION BORDERLINE T ABNORMALITIES, INFERIOR LEADS : Confirmed by: Neftaly Barrett MD 05-May-2019 13:15:41
[2019-05-05] MEDS ORDERED: DOXYCYCLINE HYCLATE INJ 100 MG VIAL IV PRN (23:00)
[2019-05-05] MEDS ORDERED: METHYLPREDNISOLONE INJ 125 MG/2 ML SDV IV ONE (23:15)
[2019-05-05] MEDS ORDERED: DOXYCYCLINE HYCLATE 100 MG in DEXTROSE 5%-WATER 250 ML IV ONE (23:30)
[2019-05-06] MEDS ORDERED: DOXYCYCLINE HYCLATE INJ 100 MG VIAL ONE (00:48)
[2019-05-06] MEDS: METHYLPREDNISOLONE INJ 125 MG/2 ML SDV IV SCH ×3 (06:10→21:34)
[2019-05-06] MEDS ORDERED: DOXYCYCLINE HYCLATE 100 MG in DEXTROSE 5%-WATER 250 ML IV SCH (10:00)
--- NOTE | 2019-05-06 16:02 | PDOC H&P ---
History of Present Illness Admission Date/PCP: 05/05/19 14:26 DANIAL HALL MD History of Present Illness: CECILE BERRIOS is a 63 year old female patient of Dr Hall who presented to the [facility] via EMS following visit to Dr. Hall's office for persistently low oxygen saturation. Patient narrated to me that she accidentally dislodged her oxygen connection from her portable concentrator while taking a shower. She complete her bath with significant shortness of breath but her son was able to reconnect her supply line to the concentrator. she subsequently developed anxiety due to getting into her vehicle en route to Dr. Hall's office. Her oxygen saturation was significantly low that necessitate activation of EMS. She denied any chest pain or palpitation. No fever, chills, chest, sinus, or nasal congestion, or coughing. Her initial evaluation was significant for slight leukocytosis with left shift, elevated serum CO2 level, and her chest X ray did not suggest any acute event. She was admitted as a case of COPD exacerbation. Her morbidities are as listed below. Past Medical History Cardiac Medical History: Reports: Congestive Heart Failure, Hypertension Denies: Atrial Fibrillation, Coronary Artery Disease, DVT, Myocardial Infarction, Pulmonary Embolism Pulmonary Medical History: Reports: Bronchitis, Chronic Obstructive Pulmonary Disease (COPD), Respiratory Failure Neurological Medical History: Denies: Seizures Endocrine Medical History: Denies: Diabetes Mellitus Type 1, Diabetes Mellitus Type 2, Hyperthyroidism, Hypothyroidism GI Medical History: Denies: Cirrhosis, Crohn's Disease, Hepatitis, Ulcerative Colitis Musculoskeltal Medical History: Denies: Arthritis, Fibromyalgia, Gout Skin Medical History: Denies: Eczema, Psoriasis Psychiatric Medical History: Reports: Depression Hematology: Denies: Anemia, Sickle Cell Disease, Bleeding Tendencies Past Surgical History Past Surgical History: Reports: Hysterectomy Social History Smoking Status: Former Smoker Frequency of Alcohol Use: None Hx Recreational Drug Use: No Drugs: None Hx Prescription Drug Abuse: No - Advance Directive Resuscitation Status: Full Code Family History Family History: COPD, DM, Hypertension, Malignancy. denies: Arthritis, CAD, CVA, Hyperlipidemia, Thyroid Disfunction Parental Family History Reviewed: Yes Children Family History Reviewed: Yes Sibling(s) Family History Reviewed.: Yes Medication/Allergy Home Medications: Alprazolam [Xanax 0.25 mg Tablet] 0.5 mg PO Q12 02/12/19 Buspirone HCl [Buspar 10 mg Tablet] 5 mg PO Q12 tablet 04/02/19 Carvedilol [Coreg 6.25 mg Tablet] 6.25 mg PO Q12 tablet 04/02/19 Digoxin [Lanoxin 0.25 mg Tablet] 0.25 mg PO DAILY tablet 04/02/19 Docusate Sodium [Colace 100 mg Capsule] 100 mg PO Q12 capsule 04/02/19 Fluticasone/Umeclidin/Vilanter [Trelegy 100-62.5-25 Mcg Ellipta 14 Dose/Dpi] 1 inh IH DAILY inhaler 04/02/19 Furosemide [Lasix 20 mg Tablet] 20 mg PO DAILY tablet 04/02/19 Prednisone [Deltasone 5 mg Tablet] 2.5 mg PO Q12 tablet 04/02/19 Sildenafil Citrate [Revatio 20 mg Tablet] 20 mg PO MEALS tablet 04/02/19 Escitalopram Oxalate [Lexapro 10 mg Tablet] 5 mg PO DAILY 05/05/19 Allergies/Adverse Reactions: No Known Allergies Allergy (Verified 01/18/18 18:24) Review of Systems Constitutional: ABSENT: chills, fever(s), headache(s), weight gain, weight loss Eyes: ABSENT: visual disturbances Ears: ABSENT: hearing changes Nose, Mouth, and Throat: ABSENT: headache(s), mouth pain, sore throat, vertigo Cardiovascular: PRESENT: dyspnea on exertion Respiratory: PRESENT: dyspnea Gastrointestinal: ABSENT: abdominal pain, constipation, diarrhea, hematemesis, hematochezia, nausea, vomiting Genitourinary: ABSENT: dysuria, hematuria Musculoskeletal: ABSENT: joint swelling Integumentary: ABSENT: rash, wounds Neurological: ABSENT: abnormal gait, abnormal speech, confusion, dizziness, focal weakness, syncope Psychiatric: ABSENT: anxiety, depression, homidical ideation, suicidal ideation Endocrine: ABSENT: cold intolerance, heat intolerance, polydipsia, polyuria Hematologic/Lymphatic: ABSENT: easy bleeding, easy bruising, lymphadenopathy Allergic/Immunologic: PRESENT: seasonal rhinorrhea Physical Exam Vital Signs: Temp Pulse Resp BP Pulse Ox 97.6 F 89 22 H 127/65 H 100 05/05/19 10:15 05/05/19 10:15 05/05/19 19:01 05/05/19 19:01 05/05/19 19:01 Intake & Output 05/04/19 05/05/19 05/06/19 06:59 06:59 06:59 Weight 66.2 kg General appearance: PRESENT: mild distress - with supplemental oxygen in use. Head exam: PRESENT: atraumatic, normocephalic Eye exam: PRESENT: conjunctiva pink, EOMI, PERRLA. ABSENT: scleral icterus Ear exam: PRESENT: normal external ear exam Mouth exam: PRESENT: moist Respiratory exam: PRESENT: decreased breath sounds - at lung bases, rhonchi - minimal end expiratory phase Cardiovascular exam: PRESENT: RRR. ABSENT: diastolic murmur, rubs, systolic murmur Vascular exam: ABSENT: pallor GI/Abdominal exam: PRESENT: normal bowel sounds, soft. ABSENT: distended, guarding, mass, organolmegaly, rebound, tenderness Rectal exam: PRESENT: deferred Extremities exam: ABSENT: pedal edema Musculoskeletal exam: PRESENT: deformity - related to multiple joints arthritis Neurological exam: PRESENT: alert, awake, oriented to person, oriented to place, oriented to time, oriented to situation, CN II-XII grossly intact. ABSENT: motor sensory deficit Psychiatric exam: PRESENT: appropriate affect, normal mood. ABSENT: homicidal ideation, suicidal ideation Skin exam: PRESENT: dry, warm Results Laboratory Results: 05/05/19 10:13 05/05/19 10:13 05/05/19 05/05/19 10:13 10:13 WBC 10.8 H RBC 3.32 L Hgb 10.7 L Hct 31.8 L MCV 96 MCH 32.1 MCHC 33.5 RDW 13.8 Plt Count 344 Seg Neutrophils % 83.0 H Sodium 142.3 Potassium 3.9 Chloride 95 L Carbon Dioxide 40 H* Anion Gap 7 BUN 15 Creatinine 1.04 Est GFR ( Amer) > 60 Glucose 119 H Calcium 9.6 Total Bilirubin 0.5 AST 20 Alkaline Phosphatase 82 Total Protein 7.0 Albumin 3.5 05/05/19 12:40 Troponin I < 0.012 Impressions: Chest X-Ray 05/05/19 10:23 IMPRESSION: NO ACUTE RADIOGRAPHIC FINDING IN THE CHEST. Assessment & Plan - Diagnosis (1) COPD exacerbation Is this a current diagnosis for this admission?: Yes Plan: See covering attending physician orders for details about care plan. (2) Hypertension Qualifiers: Hypertension type: essential hypertension Qualified Code(s): I10 - Essential (primary) hypertension Is this a current diagnosis for this admission?: Yes Plan: See covering attending physician orders for details about care plan. (3) Heart failure with preserved ejection fraction, NYHA class II Is this a current diagnosis for this admission?: Yes Plan: See covering attending physician orders for details about care plan. (4) Severe pulmonary arterial systolic hypertension Is this a current diagnosis for this admission?: Yes Plan: See covering attending physician orders for details about care plan. - Time Time Spent: 50 to 70 Minutes Medications reviewed and adjusted accordingly: Yes Anticipated discharge: Home with Homehealth Within: Other - Inpatient Certification Based on my medical assessment, after consideration of the patient's comorbidities, presenting symptoms, or acuity I expect that the services needed warrant INPATIENT care.: Yes I certify that my determination is in accordance with my understanding of Medicare's requirements for reasonable and necessary INPATIENT services [42 CFR 412.3e].: Yes Medical Necessity: Significant Comorbidiites Make Outpatient Treatment Too Risky, Need Close Monitoring Due to Risk of Patient Decompensation, Need For IV Fluids, Need For Continuous Telemetry Monitoring, Need for Nebulizer Therapy and Monitoring of Response, Need for IV Antibiotics, Risk of Complication if Not Cared For in Hospital, Risk of Diagnosis Which Will Require Inpatient Eval/Care/Monitoring Post Hospital Care: D/C Vision Mixer Documentation - Plan Summary Plan Summary: See covering attending physician orders for details about care plan.
--- NOTE | 2019-05-06 16:27 | PDOC PROGRESS REPORT ---
Subjective Progress Note for:: 05/06/19 Subjective:: Patient reported feeling much better on the direct oxygen supplementation therapy compared to her portable concentrator. No fever or chills. No chest pain. No nausea, vomiting or abdominal pain. Reason For Visit: COPD EXACERBATION Physical Exam Vital Signs: Temp Pulse Resp BP Pulse Ox 97.9 F 86 21 H 134/70 H 94 05/06/19 11:55 05/06/19 11:55 05/06/19 11:55 05/06/19 11:55 05/06/19 11:55 Intake & Output 05/05/19 05/06/19 05/07/19 06:59 06:59 06:59 Intake Total 360 Balance 360 Weight 66.9 kg General appearance: PRESENT: mild distress - on supplemental oxygen via nasal cannula at 3L/min. Head exam: PRESENT: atraumatic, normocephalic Eye exam: PRESENT: conjunctiva pink. ABSENT: scleral icterus Ear exam: PRESENT: normal external ear exam Mouth exam: PRESENT: moist Respiratory exam: PRESENT: decreased breath sounds, rhonchi - at end expiratory phase Cardiovascular exam: PRESENT: RRR, +S1, +S2. ABSENT: diastolic murmur, rubs, systolic murmur Vascular exam: PRESENT: pallor Extremities exam: ABSENT: pedal edema Neurological exam: PRESENT: alert, awake, oriented to person, oriented to place, oriented to time, oriented to situation, CN II-XII grossly intact. ABSENT: mot or sensory deficit Psychiatric exam: PRESENT: appropriate affect, normal mood. ABSENT: homicidal ideation, suicidal ideation Skin exam: PRESENT: dry, warm Results Laboratory Results: 05/05/19 10:13 05/05/19 10:13 05/05/19 12:40 Troponin I < 0.012 Impressions: Chest X-Ray 05/05/19 10:23 IMPRESSION: NO ACUTE RADIOGRAPHIC FINDING IN THE CHEST. Assessment & Plan - Diagnosis (1) COPD exacerbation Is this a current diagnosis for this admission?: Yes (2) Hypertension Qualifiers: Hypertension type: essential hypertension Qualified Code(s): I10 - Essential (primary) hypertension Is this a current diagnosis for this admission?: Yes (3) Heart failure with preserved ejection fraction, NYHA class II Is this a current diagnosis for this admission?: Yes (4) Severe pulmonary arterial systolic hypertension Is this a current diagnosis for this admission?: Yes - Time Time Spent with patient: 35 or more minutes Level of Care: TELE Medications reviewed and adjusted accordingly: Yes Anticipated discharge: Home with Homehealth Within: Other - Inpatient Certification Based on my medical assessment, after consideration of the patient's marjorie rbidities, presenting symptoms, or acuity I expect that the services needed warrant INPATIENT care.: Yes I certify that my determination is in accordance with my understanding of Medicare's requirements for reasonable and necessary INPATIENT services [42 CFR 412.3e].: Yes Medical Necessity: Significant Comorbidiites Make Outpatient Treatment Too Risky, Need Close Monitoring Due to Risk of Patient Decompensation, Need For IV Fluids, Need For Continuous Telemetry Monitoring, Need for Nebulizer Therapy and Monitoring of Response, Need for IV Antibiotics, Risk of Complication if Not Cared For in Hospital, Risk of Diagnosis Which Will Require Inpatient Eval/Care/Monitoring Post Hospital Care: D/C Mediation Commissioner Documentation - Plan Summary Plan Summary: D/C IV Doxycycline. Decrease IV Solu Medrol to 80 mg q8 hours. Maintain on all other preadmission medication management.
[2019-05-06] MEDS: DIGOXIN 0.25 MG TABLET PO SCH (18:35)
[2019-05-06] MEDS: SILDENAFIL CITRATE 20 MG TABLET PO SCH (18:36)
[2019-05-06] MEDS: DOCUSATE SODIUM 100 MG CAPSULE PO SCH (21:31)
[2019-05-06] MEDS: BUSPIRONE HCL 10 MG TABLET PO SCH (21:31)
[2019-05-06] MEDS: CARVEDILOL 6.25 MG TABLET PO SCH (21:32)
[2019-05-06] MEDS: ALPRAZOLAM 0.25 MG TABLET PO SCH (22:39)
[2019-05-06] MEDS: IPRATROPIUM/ALBUTEROL 0.5-2.5 MG/3 ML AMPUL NEB PRN (23:36)
[2019-05-07] MEDS: METHYLPREDNISOLONE INJ 125 MG/2 ML SDV IV SCH ×3 (05:47→21:45)
[2019-05-07] MEDS: IPRATROPIUM/ALBUTEROL 0.5-2.5 MG/3 ML AMPUL NEB PRN (06:08)
[2019-05-07] MEDS: SILDENAFIL CITRATE 20 MG TABLET PO SCH ×3 (07:49→17:16)
[2019-05-07] MEDS: DIGOXIN 0.25 MG TABLET PO SCH (09:30)
[2019-05-07] MEDS: FUROSEMIDE 20 MG TABLET PO SCH (09:30)
[2019-05-07] MEDS: ESCITALOPRAM OXALATE 10 MG TABLET PO SCH (09:30)
[2019-05-07] MEDS: ALPRAZOLAM 0.25 MG TABLET PO SCH ×3 (09:30→21:45)
[2019-05-07] MEDS: DOCUSATE SODIUM 100 MG CAPSULE PO SCH ×2 (09:31→21:43)
[2019-05-07] MEDS: BUSPIRONE HCL 10 MG TABLET PO SCH ×2 (09:31→21:43)
[2019-05-07] MEDS: CARVEDILOL 6.25 MG TABLET PO SCH ×2 (09:31→21:43)
--- NOTE | 2019-05-07 17:46 | PDOC PROGRESS REPORT ---
Subjective Progress Note for:: 05/07/19 Subjective:: Nursing staff reported significant oxygen desaturation and tachycardia with exertion. Patient remain on supplemental oxygen via nasal cannula. No fever or chills. No chest pain. No nausea, vomiting or abdominal pain. Reason For Visit: COPD EXACERBATION WITH HYPOXEMIA,HTN,PEFHF,PULMONA Physical Exam Vital Signs: Temp Pulse Resp BP Pulse Ox 98.7 F 90 22 H 120/78 98 05/07/19 16:00 05/07/19 16:00 05/07/19 16:00 05/07/19 16:00 05/07/19 16:00 Intake & Output 05/06/19 05/07/19 05/08/19 06:59 06:59 06:59 Intake Total 360 120 Balance 360 120 Weight 66.9 kg 69.9 kg Physical Exam: General appearance: PRESENT: mild distress - on supplemental oxygen via nasal cannula at 3L/min. Head exam: PRESENT: atraumatic, normocephalic Eye exam: PRESENT: conjunctiva pink. ABSENT: pallor, scleral icterus Ear exam: PRESENT: normal external ear exam Mouth exam: PRESENT: moist Respiratory exam: PRESENT: decreased breath sounds, minimal - end expiratory phase rhonchi Cardiovascular exam: PRESENT: RRR, +S1, +S2. ABSENT: diastolic murmur, rubs, systolic murmur Extremities exam: ABSENT: pedal edema Neurological exam: PRESENT: alert, awake, oriented to person, oriented to place, oriented to time, oriented to situation, CN II-XII grossly intact. ABSENT: motor sensory deficit Psychiatric exam: PRESENT: appropriate affect, normal mood. ABSENT: homicidal ideation, suicidal ideation Skin exam: PRESENT: dry, warm Results Laboratory Results: 05/05/19 10:13 05/05/19 10:13 05/05/19 12:40 Troponin I < 0.012 Impressions: Chest X-Ray 05/05/19 10:23 IMPRESSION: NO ACUTE RADIOGRAPHIC FINDING IN THE CHEST. Assessment & Plan - Diagnosis (1) COPD exacerbation Is this a current diagnosis for this admission?: Yes (2) Hypertension Qualifiers: Hypertension type: essential hypertension Qualified Code(s): I10 - Essential (primary) hypertension Is this a current diagnosis for this admission?: Yes (3) Heart failure with preserved ejection fraction, NYHA class II Is this a current diagnosis for this admission?: Yes (4) Severe pulmonary arterial systolic hypertension Is this a current diagnosis for this admission?: Yes - Time Time Spent with patient: 25-34 minutes Level of Care: TELE Medications reviewed and adjusted accordingly: Yes Anticipated discharge: Home with Homehealth Within: Other - Inpatient Certification Based on my medical assessment, after consideration of the patient's comorbidities, presenting symptoms, or acuity I expect that the services needed warrant INPATIENT care.: Yes I certify that my determination is in accordance with my understanding of Medicare's requirements for reasonable and necessary INPATIENT services [42 CFR 412.3e].: Yes Medical Necessity: Significant Comorbidiites Make Outpatient Treatment Too Risky, Need Close Monitoring Due to Risk of Patient Decompensation, Need For IV Fluids, Need For Continuous Telemetry Monitoring, Need for Nebulizer Therapy and Monitoring of Response, Risk of Complication if Not Cared For in Hospital, Risk of Diagnosis Which Will Require Inpatient Eval/Care/Monitoring Post Hospital Care: D/C Title Curator Documentation - Plan Summary Plan Summary: Decrease IV Solu Medrol to 40 mg q 8 hours. Patient will benefit from high flow portable concentrator or home oxygen tank supply for supplementation instead of her current limited flow portable oxygen concentrator. Continue on all other current medication management.
[2019-05-08] MEDS: METHYLPREDNISOLONE INJ 125 MG/2 ML SDV IV SCH (05:20)
[2019-05-08] MEDS: SILDENAFIL CITRATE 20 MG TABLET PO SCH ×3 (08:38→17:12)
[2019-05-08] MEDS: DIGOXIN 0.25 MG TABLET PO SCH (09:23)
[2019-05-08] MEDS: CARVEDILOL 6.25 MG TABLET PO SCH ×2 (09:23→21:14)
[2019-05-08] MEDS: ESCITALOPRAM OXALATE 10 MG TABLET PO SCH (09:23)
[2019-05-08] MEDS: ALPRAZOLAM 0.25 MG TABLET PO SCH ×2 (09:23→21:14)
[2019-05-08] MEDS: BUSPIRONE HCL 10 MG TABLET PO SCH ×2 (09:24→21:13)
[2019-05-08] MEDS: DOCUSATE SODIUM 100 MG CAPSULE PO SCH ×2 (09:24→21:13)
[2019-05-08] MEDS: FUROSEMIDE 20 MG TABLET PO SCH (09:24)
--- NOTE | 2019-05-08 09:30 | PDOC PROGRESS REPORT ---
Subjective Progress Note for:: 05/08/19 Subjective:: Patient is currently doing fair according to the nursing staff patient is resting with no issues required 2 to 3 L nasal cannula oxygen's but patients move around patient's desat and tachycardic Patient have a significant COPD reviewed the patient's last several months report from the ICU report and hospital admissions report pretty much same issues Patient's denied any chest pain no short of breath while laying down Adding to the patient's to use the 2 L nasal cannulae at home Reason For Visit: COPD EXACERBATION WITH HYPOXEMIA,HTN,PEFHF,PULMONA Physical Exam Vital Signs: Temp Pulse Resp BP Pulse Ox 97.4 F 62 17 146/78 H 98 05/08/19 07:25 05/08/19 09:16 05/08/19 09:16 05/08/19 07:25 05/08/19 09:16 Intake & Output 05/07/19 05/08/19 05/09/19 06:59 06:59 06:59 Intake Total 360 820 Balance 360 820 Weight 69.9 kg 70 kg General appearance: PRESENT: no acute distress, well-developed, well-nourished Head exam: PRESENT: atraumatic, normocephalic Eye exam: PRESENT: conjunctiva pink, EOMI, PERRLA. ABSENT: scleral icterus Ear exam: PRESENT: normal external ear exam Mouth exam: PRESENT: moist, tongue midline Neck exam: PRESENT: full ROM. ABSENT: carotid bruit, JVD, lymphadenopathy, thyromegaly Respiratory exam: PRESENT: clear to auscultation bianca Cardiovascular exam: PRESENT: RRR. ABSENT: diastolic murmur, rubs, systolic murmur Pulses: PRESENT: normal dorsalis pedis pul, +2 pedal pulses bilateral Vascular exam: PRESENT: normal capillary refill GI/Abdominal exam: PRESENT: normal bowel sounds, soft. ABSENT: distended, guarding, mass, organolmegaly, rebound, tenderness Rectal exam: PRESENT: deferred Neurological exam: PRESENT: alert, awake, oriented to person, oriented to place, oriented to time, oriented to situation, CN II-XII grossly intact. ABSENT: motor sensory deficit Psychiatric exam: PRESENT: appropriate affect, normal mood. ABSENT: homicidal ideation, suicidal ideation Skin exam: PRESENT: dry, intact, warm. ABSENT: cyanosis, rash Results Laboratory Results: 05/05/19 10:13 05/05/19 10:13 05/05/19 12:40 Troponin I < 0.012 Impressions: Chest X-Ray 05/05/19 10:23 IMPRESSION: NO ACUTE RADIOGRAPHIC FINDING IN THE CHEST. Assessment & Plan - Diagnosis (1) COPD exacerbation Is this a current diagnosis for this admission?: Yes Plan: Continue some nebulizer treatments will reduce the IV steroid (2) Anxiety and depression Is this a current diagnosis for this admission?: Yes Plan: Continues to current medications (3) CHF (congestive heart failure) Qualifiers: Heart failure type: unspecified Heart failure chronicity: unspecified Qualified Code(s): I50.9 - Heart failure, unspecified Is this a current diagnosis for this admission?: Yes Plan: Patient is to follow Dr. Grover as outpatient recently all work-up done with a severe pulmonary hypertension's (4) Hypoxia Is this a current diagnosis for this admission?: Yes Plan: We consult the Dr. Moore's for further evaluate with the recurrent admissions (5) Moderate to severe pulmonary hypertension Is this a current diagnosis for this admission?: Yes Plan: Continues to [employer] patients may be get a benefit to refer to the [place] [facility] hypertension's clinic - Time Time Spent with patient: 15-24 minutes Level of Care: TELE Medications reviewed and adjusted accordingly: Yes Anticipated discharge: Home with Homehealth Within: Other - Plan Summary Plan Summary: Continues to current medications We will get the ABG Consult the pulmonary
[2019-05-08] MEDS: METHYLPREDNISOLONE INJ 40 MG/1 ML SDV IV SCH ×2 (14:25→21:15)
--- NOTE | 2019-05-08 14:45 | PDOC CONSULTATION ---
Consultation Consult Date: 05/08/19 Attending physician:: DANIAL HALL Provider Consulted: ORALIA NOEL Consult reason:: Exacerbation of COPD History of Present Illness Admission Date/PCP: 05/05/19 14:26 MAN ESPINOZA MD History of Present Illness: CECILE BERRIOS is a 63 year old female genitalia to the ED with increasing shortness of breath was found to be hypoxic and was subsequently intubated she has had a diagnosis of COPD for the last 2 years And wears oxygen 2 L at home she denies a productive cough hemoptysis or PPD was negative dates unknown she denies a history of chronic lung disease as a child or adolescent. She admits to exposure large amounts of passive smoke as a child as well as an adult she herself smoked 1-1/2 packs a day for approximately 40 years. 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 she has no pets no recent travel she denies angina-like chest pain sleeps on 3-4 pillows no PND no nocturnal cough no edema she admits to snoring and restless sleep she denies nocturia unrestful sleep or excessive daytime somnolence Past Medical History Cardiac Medical History: Reports: Congestive Heart Failure, Hypertension Denies: Atrial Fibrillation, Coronary Artery Disease, DVT, Myocardial Infarction, Pulmonary Embolism Pulmonary Medical History: Reports: Bronchitis, Chronic Obstructive Pulmonary Disease (COPD), Respiratory Failure Neurological Medical History: Denies: Seizures Endocrine Medical History: Denies: Diabetes Mellitus Type 1, Diabetes Mellitus Type 2, Hyperthyroidism, Hypothyroidism GI Medical History: Denies: Cirrhosis, Crohn's Disease, Hepatitis, Ulcerative Colitis Musculoskeltal Medical History: Denies: Arthritis, Fibromyalgia, Gout Skin Medical History: Denies: Eczema, Psoriasis Psychiatric Medical History: Reports: Depression Traumatic Medical History: Reports: Traumatic Brain Injury Hematology: Denies: Anemia, Sickle Cell Disease, Bleeding Tendencies Infectious Medical History: Denies: Clostridium Difficile Past Surgical History Past Surgical History: Reports: Hysterectomy Social History Information Source: Patient, [facility] Records Smoking Status: Former Smoker Cigarettes Packs Per Day: 1.5 Number of Years Smokin Passive smoke exposure as: Both Frequency of Alcohol Use: None Hx Recreational Drug Use: No Drugs: None Hx Prescription Drug Abuse: No Do you have pets?: No Have you had any respiratory illnesses as a child?: No Have you been exposed to any sick contacts recently?: No Have you had any recent respiratory illnesses?: No Have you travelled outside of [place] in the past 12 months?: No - Advance Directive Resuscitation Status: Full Code Family History Family History: COPD, DM, Hypertension, Malignancy. denies: Arthritis, CAD, CVA, Hyperlipidemia, Thyroid Disfunction Parental Family History Reviewed: Yes Children Family History Reviewed: Yes Sibling(s) Family History Reviewed.: Yes Medication/Allergy Home Medications: Alprazolam [Xanax 0.25 mg Tablet] 0.5 mg PO Q12 02/12/19 Buspirone HCl [Buspar 10 mg Tablet] 5 mg PO Q12 tablet 04/02/19 Carvedilol [Coreg 6.25 mg Tablet] 6.25 mg PO Q12 tablet 04/02/19 Digoxin [Lanoxin 0.25 mg Tablet] 0.25 mg PO DAILY tablet 04/02/19 Docusate Sodium [Colace 100 mg Capsule] 100 mg PO Q12 capsule 04/02/19 Fluticasone/Umeclidin/Vilanter [Trelegy 100-62.5-25 Mcg Ellipta 14 Dose/Dpi] 1 inh IH DAILY inhaler 04/02/19 Furosemide [Lasix 20 mg Tablet] 20 mg PO DAILY tablet 04/02/19 Prednisone [Deltasone 5 mg Tablet] 2.5 mg PO Q12 tablet 04/02/19 Sildenafil Citrate [Revatio 20 mg Tablet] 20 mg PO MEALS tablet 04/02/19 Escitalopram Oxalate [Lexapro 10 mg Tablet] 5 mg PO DAILY 05/05/19 Allergies/Adverse Reactions: No Known Allergies Allergy (Verified 01/18/18 18:24) Review of Systems All systems: reviewed and no additional remarkable complaints except as stated Physical Exam Vital Signs: Temp Pulse Resp BP Pulse Ox 97.4 F 62 17 146/78 H 98 05/08/19 07:25 05/08/19 09:16 05/08/19 09:16 05/08/19 07:25 05/08/19 09:16 Intake & Output 05/07/19 05/08/19 05/09/19 06:59 06:59 06:59 Intake Total 360 820 Balance 360 820 Weight 69.9 kg 70 kg General appearance: PRESENT: no acute distress, cooperative, disheveled, well- developed, well-nourished Head exam: PRESENT: atraumatic, normocephalic Eye exam: PRESENT: conjunctiva pale, EOMI. ABSENT: nystagmus, periorbital swelling, scleral icterus Mouth exam: PRESENT: dry mucosa, neck supple, tongue midline Neck exam: ABSENT: carotid bruit, full ROM, JVD, lymphadenopathy, meningismus, tenderness, thyromegaly, tracheal deviation, tracheostomy, other Respiratory exam: PRESENT: decreased breath sounds, prolonged expiratory phas, rhonchi, symmetrical, unlabored, wheezes. ABSENT: retraction, stridor, tachypnea Cardiovascular exam: PRESENT: RRR, +S1, +S2. ABSENT: tachycardia Pulses: PRESENT: normal radial pulses GI/Abdominal exam: PRESENT: soft. ABSENT: distended, guarding, mass, rebound, tenderness Extremities exam: PRESENT: full ROM. ABSENT: calf tenderness, clubbing, joint swelling, tenderness Musculoskeletal exam: PRESENT: full ROM. ABSENT: deformity, dislocation Neurological exam: PRESENT: alert, awake Psychiatric exam: PRESENT: appropriate affect Skin exam: PRESENT: dry, warm Results Laboratory Results: 05/05/19 10:13 05/05/19 10:13 05/05/19 12:40 Troponin I < 0.012 Impressions: Chest X-Ray 05/05/19 10:23 IMPRESSION: NO ACUTE RADIOGRAPHIC FINDING IN THE CHEST. Assessment & Plan - Diagnosis (1) COPD exacerbation Is this a current diagnosis for this admission?: Yes Plan: Consider addition of inhaled corticosteroid Pulmicort "0.5 hand-held nebulizer (2) Acute on chronic respiratory failure with hypoxia and hypercapnia Is this a current diagnosis for this admission?: Yes Plan: Prior supplemental oxygen at home serum bicarb of 47 I suggest a metabolic compensation for chronic respiratory acidosis (3) Moderate to severe pulmonary hypertension Is this a current diagnosis for this admission?: Yes Plan: Patient is currently taking Revatio; consider a right heart cath after patient has been discharged - Time Time Spent: 50 to 70 Minutes
[2019-05-08] MEDS: IPRATROPIUM/ALBUTEROL 0.5-2.5 MG/3 ML AMPUL NEB PRN (23:17)
[2019-05-09] MEDS: METHYLPREDNISOLONE INJ 40 MG/1 ML SDV IV SCH (05:26)
[2019-05-09 05:41] LABS: HEMATOCRIT 33.1 % (36.0-47.0); MEAN CORPUSCULAR HEMOGLOBIN 32.1 pg (27.0-33.4); MEAN CORPUSCULAR HGB CONC 33.2 g/dL (32.0-36.0); MEAN CORPUSCULAR VOLUME 97 fl (80-97); PLATELET COUNT 323 10^3/uL (150-450); RED BLOOD COUNT 3.43 10^6/uL (3.72-5.28); RED CELL DISTRIBUTION WIDTH 14.2 % (11.5-14.0); WHITE BLOOD COUNT 10.5 10^3/uL (4.0-10.5)
[2019-05-09] MEDS: IPRATROPIUM/ALBUTEROL 0.5-2.5 MG/3 ML AMPUL NEB PRN ×3 (05:49→19:57)
[2019-05-09 05:53] LABS: BLOOD UREA NITROGEN 26 mg/dL (7-20); CALCIUM 9.3 mg/dL (8.4-10.2); CHLORIDE 93 mmol/L (98-107); GLUCOSE 123 mg/dL (75-110); POTASSIUM 4.4 mmol/L (3.6-5.0)
[2019-05-09 06:05] LABS: ANION GAP 5 (5-19)
[2019-05-09 06:06] LABS: CARBON DIOXIDE 42 mmol/L (22-30)
[2019-05-09 06:09] LABS: ABSOLUTE LYMPHOCYTES# (MANUAL) 1.1 10^3/uL (0.5-4.7); ABSOLUTE MONOCYTES # (MANUAL) 0.1 10^3/uL (0.1-1.4); BAND NEUTROPHILS % (MANUAL) 1 % (3-5); BASOPHILS % (MANUAL) 0 % (0-2); EOSINOPHILS % (MANUAL) 0 % (0-6); LYMPHOCYTES % (MANUAL) 10 % (13-45); MONOCYTES % (MANUAL) 1 % (3-13); SEGMENTED NEUTROPHILS % (MAN) 88 % (42-78); TOTAL CELLS COUNTED 100
[2019-05-09 06:11] LABS: ANISOCYTOSIS 1+; OVALOCYTES SLIGHT; PLATELET CLUMPS PRESENT; PLATELET COMMENT ADEQUATE; POIKILOCYTOSIS SLIGHT
[2019-05-09] MEDS: SILDENAFIL CITRATE 20 MG TABLET PO SCH ×3 (07:22→17:09)
[2019-05-09] MEDS: BUDESONIDE NEB 0.5 MG/2 ML AMPUL NEB SCH ×2 (08:33→19:57)
[2019-05-09] MEDS: ALPRAZOLAM 0.25 MG TABLET PO SCH ×2 (09:03→21:37)
[2019-05-09] MEDS: ESCITALOPRAM OXALATE 10 MG TABLET PO SCH (09:03)
[2019-05-09] MEDS: FUROSEMIDE 20 MG TABLET PO SCH (09:03)
[2019-05-09] MEDS: BUSPIRONE HCL 10 MG TABLET PO SCH ×2 (09:03→21:38)
[2019-05-09] MEDS: CARVEDILOL 6.25 MG TABLET PO SCH ×2 (09:03→21:38)
[2019-05-09] MEDS: DIGOXIN 0.25 MG TABLET PO SCH (09:03)
[2019-05-09] MEDS: DOCUSATE SODIUM 100 MG CAPSULE PO SCH ×2 (09:07→21:38)
--- NOTE | 2019-05-09 10:58 | PDOC PROGRESS REPORT ---
Subjective Progress Note for:: 05/09/19 Subjective:: Patient is feeling much better Seen by Dr. Moore and suggest to put the Pulmicort Patient still desaturating when patients move around but other than that when patients lay down patients feel fine Patient is expressed to go home Reason For Visit: ACUTE COPD EXACERBATION Physical Exam Vital Signs: Temp Pulse Resp BP Pulse Ox 97.1 F 85 16 130/71 H 93 05/09/19 00:00 05/09/19 08:33 05/09/19 08:33 05/09/19 07:20 05/09/19 08:33 Pulse Oximeter Continuous Start: 05/09/19 03:29 Freq: RTQ4 Status: Active Protocol: Document 05/09/19 08:33 [facility] (Rec: 05/09/19 08:41 [facility] [id number]) Pulse Oximetry Assessment Oxygen Saturation (92-100) 93 Oxygen Flow Rate (L/min) 2 Oxygen Delivery Method Nasal Cannula Equipment Usage Equipment in Use Continuous SpO2 Machine # 3 Intake & Output 05/08/19 05/09/19 05/10/19 06:59 06:59 06:59 Intake Total 820 804 Balance 820 804 Weight 70 kg 70.4 kg General appearance: PRESENT: no acute distress, well-developed, well-nourished Head exam: PRESENT: atraumatic, normocephalic Eye exam: PRESENT: conjunctiva pink, EOMI, PERRLA. ABSENT: scleral icterus Ear exam: PRESENT: normal external ear exam Mouth exam: PRESENT: moist, tongue midline Neck exam: PRESENT: full ROM. ABSENT: carotid bruit, JVD, lymphadenopathy, thyromegaly Respiratory exam: PRESENT: clear to auscultation bianca Cardiovascular exam: PRESENT: RRR. ABSENT: diastolic murmur, rubs, systolic murmur Pulses: PRESENT: normal dorsalis pedis pul, +2 pedal pulses bilateral Vascular exam: PRESENT: normal capillary refill GI/Abdominal exam: PRESENT: normal bowel sounds, soft. ABSENT: distended, guarding, mass, organolmegaly, rebound, tenderness Rectal exam: PRESENT: deferred Musculoskeletal exam: PRESENT: ambulatory Neurological exam: PRESENT: alert, awake, oriented to person, oriented to place, oriented to time, oriented to situation, CN II-XII grossly intact. ABSENT: motor sensory deficit Psychiatric exam: PRESENT: appropriate affect, normal mood. ABSENT: homicidal ideation, suicidal ideation Skin exam: PRESENT: dry, intact, warm. ABSENT: cyanosis, rash Results Laboratory Results: 05/09/19 03:57 05/09/19 03:57 05/09/19 05/09/19 03:57 03:57 WBC 10.5 RBC 3.43 L Hgb 11.0 L Hct 33.1 L MCV 97 MCH 32.1 MCHC 33.2 RDW 14.2 H Plt Count 323 Seg Neutrophils % Not Reportable Sodium 140.2 Potassium 4.4 Chloride 93 L Carbon Dioxide 42 H* Anion Gap 5 BUN 26 H Creatinine 0.98 Est GFR ( Amer) > 60 Glucose 123 H Calcium 9.3 05/05/19 12:40 Troponin I < 0.012 Impressions: Chest X-Ray 05/05/19 10:23 IMPRESSION: NO ACUTE RADIOGRAPHIC FINDING IN THE CHEST. Assessment & Plan - Diagnosis (1) COPD exacerbation Is this a current diagnosis for this admission?: Yes Plan: Reduce the IV steroids (2) Anxiety and depression Is this a current diagnosis for this admission?: Yes Plan: Continues to current medications (3) CHF (congestive heart failure) Qualifiers: Heart failure type: unspecified Heart failure chronicity: unspecified Qualified Code(s): I50.9 - Heart failure, unspecified Is this a current diagnosis for this admission?: Yes Plan: Patient is to follow Dr. Grover as outpatient recently all work-up done with a severe pulmonary hypertension's (4) Hypoxia Is this a current diagnosis for this admission?: Yes Plan: Patient with chronic respiratory failure adjust the oxygen's follow-up with the pulmonary (5) Moderate to severe pulmonary hypertension Is this a current diagnosis for this admission?: Yes (6) Chronic respiratory failure Qualifiers: Respiratory failure complication: hypoxia Qualified Code(s): J96.11 - Chronic respiratory failure with hypoxia Is this a current diagnosis for this admission?: Yes Plan: Follow-up with the pulmonary - Time Time Spent with patient: 15-24 minutes Level of Care: TELE Medications reviewed and adjusted accordingly: Yes Anticipated discharge: Home with Homehealth Within: Other - Plan Summary Plan Summary: DC the IV Solu-Medrol's Adjust the oxygen
[2019-05-09] MEDS ORDERED: METHYLPREDNISOLONE INJ 40 MG/1 ML SDV IV SCH (14:00)
[2019-05-09] MEDS: PREDNISONE 20 MG TABLET PO SCH (17:09)
[2019-05-10] MEDS: IPRATROPIUM/ALBUTEROL 0.5-2.5 MG/3 ML AMPUL NEB PRN ×3 (02:06→19:20)
[2019-05-10] MEDS: BUDESONIDE NEB 0.5 MG/2 ML AMPUL NEB SCH ×2 (08:21→19:20)
[2019-05-10] MEDS: ALPRAZOLAM 0.25 MG TABLET PO SCH ×2 (09:15→21:35)
[2019-05-10] MEDS: DOCUSATE SODIUM 100 MG CAPSULE PO SCH ×2 (09:15→21:35)
[2019-05-10] MEDS: BUSPIRONE HCL 10 MG TABLET PO SCH ×2 (09:16→21:35)
[2019-05-10] MEDS: CARVEDILOL 6.25 MG TABLET PO SCH ×2 (09:16→21:35)
[2019-05-10] MEDS: ESCITALOPRAM OXALATE 10 MG TABLET PO SCH (09:17)
[2019-05-10] MEDS: FUROSEMIDE 20 MG TABLET PO SCH (09:18)
[2019-05-10] MEDS: PREDNISONE 20 MG TABLET PO SCH ×2 (09:19→19:14)
[2019-05-10] MEDS: SILDENAFIL CITRATE 20 MG TABLET PO SCH ×3 (09:27→19:14)
[2019-05-10] MEDS: DIGOXIN 0.25 MG TABLET PO SCH (09:32)
--- NOTE | 2019-05-10 11:42 | PDOC PROGRESS REPORT ---
Subjective Progress Note for:: 05/10/19 Subjective:: Patient is feeling much better Seen by Dr. Moore and suggest to put the Pulmicort Patient still desaturating when patients move around but other than that when patients lay down patients feel fine Patient is expressed to go home Reason For Visit: ACUTE COPD EXACERBATION Physical Exam Vital Signs: Temp Pulse Resp BP Pulse Ox 99.3 F 84 16 133/51 H 96 05/10/19 07:54 05/10/19 08:21 05/10/19 08:21 05/10/19 07:54 05/10/19 08:21 Pulse Oximeter Continuous Start: 05/09/19 03:29 Freq: RTQ4 Status: Active Protocol: Document 05/10/19 08:00 [facility] (Rec: 05/10/19 09:57 [facility] [id number]) Pulse Oximetry Assessment Equipment Usage Equipment Discontinued Continuous SpO2 Machine # 3 Additional RT Notes Other No order for this equipment. Intake & Output 05/09/19 05/10/19 05/11/19 06:59 06:59 06:59 Intake Total 804 700 Balance 804 700 Weight 70.4 kg 69.8 kg General appearance: PRESENT: no acute distress, well-developed, well-nourished Head exam: PRESENT: atraumatic, normocephalic Eye exam: PRESENT: conjunctiva pink, EOMI, PERRLA. ABSENT: scleral icterus Ear exam: PRESENT: normal external ear exam Mouth exam: PRESENT: moist, tongue midline Neck exam: PRESENT: full ROM. ABSENT: carotid bruit, JVD, lymphadenopathy, thyromegaly Cardiovascular exam: PRESENT: RRR. ABSENT: diastolic murmur, rubs, systolic murmur Pulses: PRESENT: normal dorsalis pedis pul, +2 pedal pulses bilateral Vascular exam: PRESENT: normal capillary refill GI/Abdominal exam: PRESENT: normal bowel sounds, soft. ABSENT: distended, guarding, mass, organolmegaly, rebound, tenderness Rectal exam: PRESENT: deferred Neurological exam: PRESENT: alert, awake, oriented to person, oriented to place, oriented to time, oriented to situation, CN II-XII grossly intact. ABSENT: mot or sensory deficit Psychiatric exam: PRESENT: appropriate affect, normal mood. ABSENT: homicidal ideation, suicidal ideation Skin exam: PRESENT: dry, intact, warm. ABSENT: cyanosis, rash Results Laboratory Results: 05/09/19 03:57 05/09/19 03:57 05/05/19 12:40 Troponin I < 0.012 Impressions: Chest X-Ray 05/05/19 10:23 IMPRESSION: NO ACUTE RADIOGRAPHIC FINDING IN THE CHEST. Assessment & Plan - Diagnosis (1) COPD exacerbation Is this a current diagnosis for this admission?: Yes (2) Anxiety and depression Is this a current diagnosis for this admission?: Yes (3) CHF (congestive heart failure) Qualifiers: Heart failure type: unspecified Heart failure chronicity: unspecified Qualified Code(s): I50.9 - Heart failure, unspecified Is this a current diagnosis for this admission?: Yes (4) Hypoxia Is this a current diagnosis for this admission?: Yes (5) Moderate to severe pulmonary hypertension Is this a current diagnosis for this admission?: Yes (6) Chronic respiratory failure Qualifiers: Respiratory failure complication: hypoxia Qualified Code(s): J96.11 - Chronic respiratory failure with hypoxia Is this a current diagnosis for this admission?: Yes - Time Time Spent with patient: 15-24 minutes Level of Care: IMCU Medications reviewed and adjusted accordingly: Yes Anticipated discharge: Home with Homehealth Within: Other - Plan Summary Plan Summary: Continues to current medications
[2019-05-10] MEDS ORDERED: BUSPIRONE HCL 10 MG TABLET PO ONE (14:15)
[2019-05-11 06:06] LABS: HEMATOCRIT 30.6 % (36.0-47.0); MEAN CORPUSCULAR HEMOGLOBIN 31.4 pg (27.0-33.4); MEAN CORPUSCULAR HGB CONC 32.8 g/dL (32.0-36.0); MEAN CORPUSCULAR VOLUME 96 fl (80-97); PLATELET COUNT 342 10^3/uL (150-450); RED CELL DISTRIBUTION WIDTH 14.1 % (11.5-14.0)
[2019-05-11 06:24] LABS: BLOOD UREA NITROGEN 22 mg/dL (7-20); CALCIUM 9.4 mg/dL (8.4-10.2); GLUCOSE 126 mg/dL (75-110); POTASSIUM 4.6 mmol/L (3.6-5.0)
[2019-05-11 06:48] LABS: ABSOLUTE LYMPHOCYTES# (MANUAL) 1.1 10^3/uL (0.5-4.7); ABSOLUTE MONOCYTES # (MANUAL) 0.8 10^3/uL (0.1-1.4); ANISOCYTOSIS SLIGHT; BAND NEUTROPHILS % (MANUAL) 1 % (3-5); BASOPHILS % (MANUAL) 0 % (0-2); EOSINOPHILS % (MANUAL) 1 % (0-6); LYMPHOCYTES % (MANUAL) 9 % (13-45); MONOCYTES % (MANUAL) 7 % (3-13); PLATELET COMMENT ADEQUATE; SEGMENTED NEUTROPHILS % (MAN) 82 % (42-78); TOTAL CELLS COUNTED 100
[2019-05-11 06:58] LABS: CHLORIDE 92 mmol/L (98-107)
[2019-05-11 07:25] LABS: ANION GAP 6 (5-19)
[2019-05-11 07:27] LABS: CARBON DIOXIDE 40 mmol/L (22-30)
[2019-05-11] MEDS: BUDESONIDE NEB 0.5 MG/2 ML AMPUL NEB SCH ×2 (08:03→19:16)
[2019-05-11] MEDS: IPRATROPIUM/ALBUTEROL 0.5-2.5 MG/3 ML AMPUL NEB PRN (08:03)
[2019-05-11] MEDS: ALPRAZOLAM 0.25 MG TABLET PO SCH ×2 (09:55→21:42)
[2019-05-11] MEDS: ESCITALOPRAM OXALATE 10 MG TABLET PO SCH (09:56)
[2019-05-11] MEDS: SILDENAFIL CITRATE 20 MG TABLET PO SCH ×3 (10:00→18:50)
[2019-05-11] MEDS: CARVEDILOL 6.25 MG TABLET PO SCH ×2 (10:02→21:42)
[2019-05-11] MEDS: FUROSEMIDE 20 MG TABLET PO SCH (10:02)
[2019-05-11] MEDS: BUSPIRONE HCL 10 MG TABLET PO SCH ×3 (10:03→21:42)
[2019-05-11] MEDS: DOCUSATE SODIUM 100 MG CAPSULE PO SCH ×2 (10:03→21:42)
[2019-05-11] MEDS: PREDNISONE 20 MG TABLET PO SCH (10:04)
[2019-05-11] MEDS: DIGOXIN 0.25 MG TABLET PO SCH (10:04)
--- NOTE | 2019-05-11 10:55 | PDOC PROGRESS REPORT ---
Subjective Progress Note for:: 05/11/19 Subjective:: Patient is currently doing fair Patient normally supposed to use the trilogy machine at night but patient is not using according to the discussed with the patient's son Patient's denied any chest pain no short of breath The biggest issue in the challenge with the patient's when she moved patient's O2 sat is dropped Patient seen by Dr. Moore Discussed with the patient's son about compliance of the patient's medications Patient is unable to afford the Viagra which and with the big issues with the patient's compliance for the pulmonary hypertension's Reason For Visit: ACUTE COPD EXACERBATION Physical Exam Vital Signs: Temp Pulse Resp BP Pulse Ox 98.2 F 91 14 148/69 H 94 05/11/19 07:45 05/11/19 08:03 05/11/19 08:03 05/11/19 07:45 05/11/19 08:03 Pulse Oximeter Continuous Start: 05/09/19 03:29 Freq: RTQ4 Status: Complete Protocol: Document 05/10/19 08:00 [facility] (Rec: 05/10/19 09:57 [facility] [id number]) Pulse Oximetry Assessment Equipment Usage Equipment Discontinued Continuous SpO2 Machine # 3 Additional RT Notes Other No order for this equipment. Intake & Output 05/10/19 05/11/19 05/12/19 06:59 06:59 06:59 Intake Total 700 964 Output Total 200 Balance 700 764 Weight 69.8 kg 69.5 kg General appearance: PRESENT: no acute distress, well-developed, well-nourished Head exam: PRESENT: atraumatic, normocephalic Eye exam: PRESENT: conjunctiva pink, EOMI, PERRLA. ABSENT: scleral icterus Ear exam: PRESENT: normal external ear exam Mouth exam: PRESENT: moist, tongue midline Neck exam: PRESENT: full ROM. ABSENT: carotid bruit, JVD, lymphadenopathy, thyromegaly Respiratory exam: PRESENT: clear to auscultation bianca Cardiovascular exam: PRESENT: RRR. ABSENT: diastolic murmur, rubs, systolic murmur Pulses: PRESENT: normal dorsalis pedis pul, +2 pedal pulses bilateral Vascular exam: PRESENT: normal capillary refill GI/Abdominal exam: PRESENT: normal bowel sounds, soft. ABSENT: distended, guarding, mass, organolmegaly, rebound, tenderness Rectal exam: PRESENT: deferred Neurological exam: PRESENT: alert, awake, oriented to person, oriented to place, oriented to time, oriented to situation, CN II-XII grossly intact. ABSENT: motor sensory deficit Psychiatric exam: PRESENT: appropriate affect, normal mood. ABSENT: homicidal ideation, suicidal ideation Skin exam: PRESENT: dry, intact, warm. ABSENT: cyanosis, rash Results Laboratory Results: 05/11/19 05:23 05/11/19 05:23 05/11/19 05/11/19 05:23 05:23 WBC 12.0 H RBC 3.20 L Hgb 10.0 L Hct 30.6 L MCV 96 MCH 31.4 MCHC 32.8 RDW 14.1 H Plt Count 342 Seg Neutrophils % Not Reportable Sodium 137.5 Potassium 4.6 Chloride 92 L Carbon Dioxide 40 H* Anion Gap 6 BUN 22 H Creatinine 0.92 Est GFR ( Amer) > 60 Glucose 126 H Calcium 9.4 05/05/19 13:43 Blood Blood Culture - Final NO GROWTH IN 5 DAYS 05/05/19 12:55 Blood Blood Culture - Final NO GROWTH IN 5 DAYS 05/05/19 12:40 Troponin I < 0.012 Impressions: Chest X-Ray 05/05/19 10:23 IMPRESSION: NO ACUTE RADIOGRAPHIC FINDING IN THE CHEST. Assessment & Plan - Diagnosis (1) COPD exacerbation Is this a current diagnosis for this admission?: Yes (2) Anxiety and depression Is this a current diagnosis for this admission?: Yes (3) CHF (congestive heart failure) Qualifiers: Heart failure type: unspecified Heart failure chronicity: unspecified Qualified Code(s): I50.9 - Heart failure, unspecified Is this a current diagnosis for this admission?: Yes (4) Hypoxia Is this a current diagnosis for this admission?: Yes (5) Moderate to severe pulmonary hypertension Is this a current diagnosis for this admission?: Yes (6) Chronic respiratory failure Qualifiers: Respiratory failure complication: hypoxia Qualified Code(s): J96.11 - Chronic respiratory failure with hypoxia Is this a current diagnosis for this admission?: Yes - Time Time Spent with patient: 15-24 minutes Level of Care: TELE Medications reviewed and adjusted accordingly: Yes Anticipated discharge: Home with Homehealth Within: Other - Plan Summary Plan Summary: We will get the ABG Before the discharge we will see what the patient's normal pH and CO2 level Encourage the patient's to use a trilogy machine at night We will discuss with the Dr. Moore Patients might get a benefit as outpatients to see the pH clinic in [place] We will try to get the generic Viagra
[2019-05-11 11:05] LABS: ARTERIAL BLOOD FIO2 2L; ARTERIAL BLOOD H2CO3 2.05 mmol/L (1.05-1.35); ARTERIAL BLOOD HCO3 43.5 mmol/L (20-24); ARTERIAL BLOOD PH 7.42 (7.35-7.45); ARTERIAL BLOOD TOTAL CO2 45.6 mmol/L (21-25)
[2019-05-12] MEDS: BUSPIRONE HCL 10 MG TABLET PO SCH ×3 (06:15→21:41)
[2019-05-12 06:22] LABS: BLOOD UREA NITROGEN 22 mg/dL (7-20); CALCIUM 9.2 mg/dL (8.4-10.2); CHLORIDE 92 mmol/L (98-107); GLUCOSE 74 mg/dL (75-110); POTASSIUM 3.8 mmol/L (3.6-5.0)
[2019-05-12 06:43] LABS: ANION GAP 3 (5-19)
[2019-05-12 06:44] LABS: CARBON DIOXIDE 43 mmol/L (22-30)
[2019-05-12] MEDS: IPRATROPIUM/ALBUTEROL 0.5-2.5 MG/3 ML AMPUL NEB PRN ×2 (07:50→19:25)
[2019-05-12] MEDS: BUDESONIDE NEB 0.5 MG/2 ML AMPUL NEB SCH ×2 (07:50→19:25)
--- NOTE | 2019-05-12 08:45 | PDOC PROGRESS REPORT ---
Subjective Progress Note for:: 05/12/19 Subjective:: Patient is currently doing fair Patient using the trilogy machine at night Patient denied any chest pain no short of breath Patient is in a lot of anxiety issues Other than that patient still unable to walk yesterday will get the Walk today and see how much oxygen's patient's needed Reason For Visit: ACUTE COPD EXACERBATION Physical Exam Vital Signs: Temp Pulse Resp BP Pulse Ox 97.3 F 86 20 132/61 H 94 05/12/19 00:39 05/12/19 07:50 05/12/19 07:50 05/12/19 00:39 05/12/19 07:50 Pulse Oximeter Continuous Start: 05/09/19 03:29 Freq: RTQ4 Status: Complete Protocol: Document 05/10/19 08:00 [facility] (Rec: 05/10/19 09:57 [facility] [id number]) Pulse Oximetry Assessment Equipment Usage Equipment Discontinued Continuous SpO2 Machine # 3 Additional RT Notes Other No order for this equipment. Intake & Output 05/11/19 05/12/19 05/13/19 06:59 06:59 06:59 Intake Total 964 480 Output Total 200 Balance 764 480 Weight 69.5 kg 69.3 kg General appearance: PRESENT: no acute distress, well-developed, well-nourished Head exam: PRESENT: atraumatic, normocephalic Eye exam: PRESENT: conjunctiva pink, EOMI, PERRLA. ABSENT: scleral icterus Ear exam: PRESENT: normal external ear exam Mouth exam: PRESENT: moist, tongue midline Neck exam: PRESENT: full ROM. ABSENT: carotid bruit, JVD, lymphadenopathy, thyromegaly Respiratory exam: PRESENT: clear to auscultation bianca Cardiovascular exam: PRESENT: RRR. ABSENT: diastolic murmur, rubs, systolic murmur Pulses: PRESENT: normal dorsalis pedis pul, +2 pedal pulses bilateral Vascular exam: PRESENT: normal capillary refill GI/Abdominal exam: PRESENT: normal bowel sounds, soft. ABSENT: distended, guarding, mass, organolmegaly, rebound, tenderness Rectal exam: PRESENT: deferred Neurological exam: PRESENT: alert, awake, oriented to person, oriented to place, oriented to time, oriented to situation, CN II-XII grossly intact. ABSENT: motor sensory deficit Psychiatric exam: PRESENT: appropriate affect, normal mood. ABSENT: homicidal ideation, suicidal ideation Skin exam: PRESENT: dry, intact, warm. ABSENT: cyanosis, rash Results Laboratory Results: 05/11/19 05:23 05/12/19 05:19 05/11/19 05/12/19 10:47 05:19 Carbonic Acid 2.05 H HCO3/H2CO3 Ratio 21:1 ABG pH 7.42 ABG pCO2 68.0 H ABG pO2 47.0 L ABG HCO3 43.5 H ABG O2 Saturation 82.0 L ABG Base Excess 16.0 FiO2 2L Sodium 138.4 Potassium 3.8 Chloride 92 L Carbon Dioxide 43 H* Anion Gap 3 L BUN 22 H Creatinine 0.86 Est GFR ( Amer) > 60 Glucose 74 L Calcium 9.2 05/05/19 12:40 Troponin I < 0.012 Impressions: Chest X-Ray 05/05/19 10:23 IMPRESSION: NO ACUTE RADIOGRAPHIC FINDING IN THE CHEST. Assessment & Plan - Diagnosis (1) COPD exacerbation Is this a current diagnosis for this admission?: Yes (2) Anxiety and depression Is this a current diagnosis for this admission?: Yes (3) CHF (congestive heart failure) Qualifiers: Heart failure type: unspecified Heart failure chronicity: unspecified Qualified Code(s): I50.9 - Heart failure, unspecified Is this a current diagnosis for this admission?: Yes (4) Hypoxia Is this a current diagnosis for this admission?: Yes (5) Moderate to severe pulmonary hypertension Is this a current diagnosis for this admission?: Yes (6) Chronic respiratory failure Qualifiers: Respiratory failure complication: hypoxia Qualified Code(s): J96.11 - Chronic respiratory failure with hypoxia Is this a current diagnosis for this admission?: Yes - Time Time Spent with patient: 15-24 minutes Level of Care: TELE Medications reviewed and adjusted accordingly: Yes Anticipated discharge: Home with Homehealth Within: Other - Plan Summary Plan Summary: We will repeat the ABG patient to use the trilogy machine at night Discussed with the Dr. Moore about the adjustment of the machine Consult the cardiology with ongoing problem with the heart failure with the pulmonary hypertension's needs to do any further evaluation or not Patient seen by Dr. Monique the past 3 extensive discussed with the patient and the son regarding the patient's current conditions is a really challenge for the patient's further discharging because patient and her resting condition is fine but when patients try to move around always desaturated and also top of that patient have a anxiety issue
[2019-05-12] MEDS ORDERED: PREDNISONE 20 MG TABLET PO SCH (10:00)
[2019-05-12] MEDS: ALPRAZOLAM 0.25 MG TABLET PO SCH (10:47)
[2019-05-12] MEDS: SILDENAFIL CITRATE 20 MG TABLET PO SCH ×3 (10:47→18:31)
[2019-05-12] MEDS: DIGOXIN 0.25 MG TABLET PO SCH (10:47)
[2019-05-12] MEDS: FUROSEMIDE 20 MG TABLET PO SCH (10:48)
[2019-05-12] MEDS: CARVEDILOL 6.25 MG TABLET PO SCH ×2 (10:48→21:42)
[2019-05-12] MEDS: ESCITALOPRAM OXALATE 10 MG TABLET PO SCH (10:48)
[2019-05-12] MEDS: DOCUSATE SODIUM 100 MG CAPSULE PO SCH ×2 (10:56→21:42)
[2019-05-12 11:35] LABS: ARTERIAL BLOOD BASE EXCESS 15.6 mmol/L; ARTERIAL BLOOD H2CO3 2.06 mmol/L (1.05-1.35); ARTERIAL BLOOD HCO3 42.7 mmol/L (20-24); ARTERIAL BLOOD O2 SATURATION 78.5 % (94-98); ARTERIAL BLOOD PCO2 68.5 mmHg (35-45); ARTERIAL BLOOD PH 7.41 (7.35-7.45); ARTERIAL BLOOD PO2 44.1 mmHg (80-100); ARTERIAL BLOOD TOTAL CO2 44.8 mmol/L (21-25)
[2019-05-12 11:36] LABS: ARTERIAL BLOOD FIO2 2L
[2019-05-12] MEDS: ALPRAZOLAM 0.5 MG TABLET PO SCH (21:42)
[2019-05-13] MEDS: BUSPIRONE HCL 10 MG TABLET PO SCH ×3 (05:59→21:32)
[2019-05-13] MEDS: SILDENAFIL CITRATE 20 MG TABLET PO SCH ×3 (07:38→18:32)
[2019-05-13] MEDS: BUDESONIDE NEB 0.5 MG/2 ML AMPUL NEB SCH ×2 (07:47→19:59)
--- NOTE | 2019-05-13 08:38 | PDOC PROGRESS REPORT ---
Subjective Progress Note for:: 05/13/19 Subjective:: Patient is currently doing same Patient is will figure out that the unable to use the trilogy machine and patients does not know actually how to use it Even the yesterday according to nursing staff patient's O2 was run out patient O2 sat was drop to 50 Patient's other than that denied any chest pain no short of breath Cussed with the cardiology urology regarding this ongoing problem see whether needs to do something for pulmonary hypertension suggest order the another echo and here to evaluate the patient's We will discussed with the Dr. Moore's Reason For Visit: ACUTE COPD EXACERBATION Physical Exam Vital Signs: Temp Pulse Resp BP Pulse Ox 98.1 F 81 18 147/67 H 98 05/13/19 04:31 05/13/19 07:51 05/13/19 07:51 05/13/19 04:31 05/13/19 07:51 Pulse Oximeter Continuous Start: 05/09/19 03:29 Freq: RTQ4 Status: Complete Protocol: Document 05/10/19 08:00 [facility] (Rec: 05/10/19 09:57 [facility] [id number]) Pulse Oximetry Assessment Equipment Usage Equipment Discontinued Continuous SpO2 Machine # 3 Additional RT Notes Other No order for this equipment. Intake & Output 05/12/19 05/13/19 05/14/19 06:59 06:59 06:59 Intake Total 480 113 Balance 480 113 Weight 69.3 kg 70.7 kg General appearance: PRESENT: no acute distress, well-developed, well-nourished Head exam: PRESENT: atraumatic, normocephalic Eye exam: PRESENT: conjunctiva pink, EOMI, PERRLA. ABSENT: scleral icterus Ear exam: PRESENT: normal external ear exam Mouth exam: PRESENT: moist, tongue midline Neck exam: PRESENT: full ROM. ABSENT: carotid bruit, JVD, lymphadenopathy, thyromegaly Respiratory exam: PRESENT: clear to auscultation bianca Cardiovascular exam: PRESENT: RRR. ABSENT: diastolic murmur, rubs, systolic murmur Pulses: PRESENT: normal dorsalis pedis pul, +2 pedal pulses bilateral Vascular exam: PRESENT: normal capillary refill GI/Abdominal exam: PRESENT: normal bowel sounds, soft. ABSENT: distended, guarding, mass, organolmegaly, rebound, tenderness Rectal exam: PRESENT: deferred Neurological exam: PRESENT: alert, awake, oriented to person, oriented to place, oriented to time, oriented to situation, CN II-XII grossly intact. ABSENT: m otor sensory deficit Psychiatric exam: PRESENT: appropriate affect, normal mood. ABSENT: homicidal ideation, suicidal ideation Skin exam: PRESENT: dry, intact, warm. ABSENT: cyanosis, rash Results Laboratory Results: 05/11/19 05:23 05/12/19 05:19 05/12/19 05/12/19 09:58 11:24 Carbonic Acid Cancelled 2.06 H HCO3/H2CO3 Ratio Cancelled 20:1 ABG pH Cancelled 7.41 ABG pCO2 Cancelled 68.5 H ABG pO2 Cancelled 44.1 L ABG HCO3 Cancelled 42.7 H ABG O2 Saturation Cancelled 78.5 L ABG Base Excess Cancelled 15.6 FiO2 Cancelled 2L 05/05/19 12:40 Troponin I < 0.012 Impressions: Chest X-Ray 05/05/19 10:23 IMPRESSION: NO ACUTE RADIOGRAPHIC FINDING IN THE CHEST. Assessment & Plan - Diagnosis (1) COPD exacerbation Is this a current diagnosis for this admission?: Yes (2) Anxiety and depression Is this a current diagnosis for this admission?: Yes (3) CHF (congestive heart failure) Qualifiers: Heart failure type: unspecified Heart failure chronicity: unspecified Qualified Code(s): I50.9 - Heart failure, unspecified Is this a current diagnosis for this admission?: Yes (4) Hypoxia Is this a current diagnosis for this admission?: Yes (5) Moderate to severe pulmonary hypertension Is this a current diagnosis for this admission?: Yes (6) Chronic respiratory failure Qualifiers: Respiratory failure complication: hypoxia Qualified Code(s): J96.11 - Chronic respiratory failure with hypoxia Is this a current diagnosis for this admission?: Yes - Time Time Spent with patient: 15-24 minutes Level of Care: TELE Medications reviewed and adjusted accordingly: Yes Anticipated discharge: Other Within: Other - Plan Summary Plan Summary: Again is very difficult and challenging to discharge this patient due to the patient's severe COPD And pulmonary hypertension's he went without O2 patient O2 sat dropped in the resting conditions Walking is very challenging this patient Will give a respiratory to teach the patient how to use her trilogy machine We will asked Dr. Moore's to further opinion We will get the echocardiograms consult to Dr. Willams for further evaluations
[2019-05-13] MEDS: DOCUSATE SODIUM 100 MG CAPSULE PO SCH ×2 (10:00→21:33)
[2019-05-13] MEDS: ESCITALOPRAM OXALATE 10 MG TABLET PO SCH (10:04)
[2019-05-13] MEDS: ALPRAZOLAM 0.5 MG TABLET PO SCH ×2 (10:04→21:32)
[2019-05-13] MEDS: DIGOXIN 0.25 MG TABLET PO SCH (10:05)
[2019-05-13] MEDS: CARVEDILOL 6.25 MG TABLET PO SCH ×2 (10:05→21:32)
[2019-05-13] MEDS: FUROSEMIDE 20 MG TABLET PO SCH (10:05)
[2019-05-13] MEDS: IPRATROPIUM/ALBUTEROL 0.5-2.5 MG/3 ML AMPUL NEB PRN ×2 (16:50→23:43)
--- NOTE | 2019-05-13 18:00 | PDOC CONSULTATION ---
Consultation Consult Date: 05/13/19 Provider Consulted: GILSON SOLIS Consult reason:: Pulmonary hypertension History of Present Illness Admission Date/PCP: 05/08/19 08:00 MAN ESPINOZA MD Patient complains of: Dyspnea History of Present Illness: CECILE BERRIOS is a 63 year old female 1. COPD 2. CHF 3. Systemic hypertension 4. Nicotine dependence in remission Patient with severe PAH by previous Echo. No chest pain now. Dyspnea is improved. Past Medical History Cardiac Medical History: Reports: Congestive Heart Failure, Hypertension Denies: Atrial Fibrillation, Coronary Artery Disease, DVT, Myocardial Infarction, Pulmonary Embolism Pulmonary Medical History: Reports: Bronchitis, Chronic Obstructive Pulmonary Disease (COPD), Respiratory Failure Neurological Medical History: Denies: Seizures Endocrine Medical History: Denies: Diabetes Mellitus Type 1, Diabetes Mellitus Type 2, Hyperthyroidism, Hypothyroidism GI Medical History: Denies: Cirrhosis, Crohn's Disease, Hepatitis, Ulcerative Colitis Musculoskeltal Medical History: Denies: Arthritis, Fibromyalgia, Gout Skin Medical History: Denies: Eczema, Psoriasis Psychiatric Medical History: Reports: Depression Traumatic Medical History: Reports: Traumatic Brain Injury Hematology: Denies: Anemia, Sickle Cell Disease, Bleeding Tendencies Infectious Medical History: Denies: Clostridium Difficile Past Surgical History Past Surgical History: Reports: Hysterectomy Social History Smoking Status: Former Smoker Cigarettes Packs Per Day: 1.5 Number of Years Smokin Frequency of Alcohol Use: None Hx Recreational Drug Use: No Drugs: None Hx Prescription Drug Abuse: No - Advance Directive Resuscitation Status: Full Code Family History Family History: COPD, DM, Hypertension, Malignancy. denies: Arthritis, CAD, CVA, Hyperlipidemia, Thyroid Disfunction Parental Family History Reviewed: No Children Family History Reviewed: NA Sibling(s) Family History Reviewed.: NA Medication/Allergy Home Medications: Alprazolam [Xanax 0.25 mg Tablet] 0.5 mg PO Q12 02/12/19 Buspirone HCl [Buspar 10 mg Tablet] 5 mg PO Q12 tablet 04/02/19 Carvedilol [Coreg 6.25 mg Tablet] 6.25 mg PO Q12 tablet 04/02/19 Digoxin [Lanoxin 0.25 mg Tablet] 0.25 mg PO DAILY tablet 04/02/19 Docusate Sodium [Colace 100 mg Capsule] 100 mg PO Q12 capsule 04/02/19 Fluticasone/Umeclidin/Vilanter [Trelegy 100-62.5-25 Mcg Ellipta 14 Dose/Dpi] 1 inh IH DAILY inhaler 04/02/19 Furosemide [Lasix 20 mg Tablet] 20 mg PO DAILY tablet 04/02/19 Prednisone [Deltasone 5 mg Tablet] 2.5 mg PO Q12 tablet 04/02/19 Sildenafil Citrate [Revatio 20 mg Tablet] 20 mg PO MEALS tablet 04/02/19 Escitalopram Oxalate [Lexapro 10 mg Tablet] 5 mg PO DAILY 05/05/19 Allergies/Adverse Reactions: No Known Allergies Allergy (Verified 01/18/18 18:24) Review of Systems Cardiovascular: PRESENT: as per HPI Respiratory: PRESENT: dyspnea Physical Exam Vital Signs: Temp Pulse Resp BP Pulse Ox 97.4 F 83 18 114/53 L 96 05/13/19 16:00 05/13/19 16:00 05/13/19 16:00 05/13/19 16:00 05/13/19 16:00 Pulse Oximeter Continuous Start: 05/09/19 03:29 Freq: RTQ4 Status: Complete Protocol: Document 05/10/19 08:00 [facility] (Rec: 05/10/19 09:57 [facility] [id number]) Pulse Oximetry Assessment Equipment Usage Equipment Discontinued Continuous SpO2 Machine # 3 Additional RT Notes Other No order for this equipment. Intake & Output 05/12/19 05/13/19 05/14/19 06:59 06:59 06:59 Intake Total 480 113 684 Balance 480 113 684 Weight 69.3 kg 70.7 kg General appearance: PRESENT: cooperative, thin Head exam: PRESENT: atraumatic, normocephalic Eye exam: PRESENT: EOMI Respiratory exam: PRESENT: crackles, decreased breath sounds, prolonged expiratory phas, symmetrical, unlabored Cardiovascular exam: PRESENT: RRR, +S1, +S2 Pulses: PRESENT: normal radial pulses GI/Abdominal exam: PRESENT: soft Rectal exam: PRESENT: deferred Musculoskeletal exam: PRESENT: normal inspection Neurological exam: PRESENT: alert, awake, oriented to person, oriented to place, oriented to time, oriented to situation, CN II-XII grossly intact Results Laboratory Results: 05/11/19 05:23 05/12/19 05:19 05/05/19 12:40 Troponin I < 0.012 EKG Comments: [facility] Impressions: Chest X-Ray 05/05/19 10:23 IMPRESSION: NO ACUTE RADIOGRAPHIC FINDING IN THE CHEST. Assessment & Plan - Diagnosis (1) Moderate to severe pulmonary hypertension Is this a current diagnosis for this admission?: Yes Plan: Likely secondary to COPD Agree with Revatio May need Right heart cath to evaluate further( can be arranged as out patient) Appears euvolemic now Nevertheless will repeat Echo (2) COPD exacerbation Is this a current diagnosis for this admission?: Yes Plan: Much better Supplemental oxygen Nebs Pulm input
[2019-05-14] MEDS: IPRATROPIUM/ALBUTEROL 0.5-2.5 MG/3 ML AMPUL NEB PRN ×4 (05:07→23:50)
[2019-05-14 05:34] LABS: ARTERIAL BLOOD BASE EXCESS 16.3 mmol/L; ARTERIAL BLOOD HCO3 43.5 mmol/L (20-24); ARTERIAL BLOOD O2 SATURATION 96.6 % (94-98); ARTERIAL BLOOD PH 7.41 (7.35-7.45); ARTERIAL BLOOD PO2 89.6 mmHg (80-100); ARTERIAL BLOOD TOTAL CO2 45.7 mmol/L (21-25)
[2019-05-14 05:35] LABS: ARTERIAL BLOOD FIO2 32%
[2019-05-14 05:36] LABS: ARTERIAL BLOOD PCO2 69.9 mmHg (35-45)
[2019-05-14] MEDS: BUSPIRONE HCL 10 MG TABLET PO SCH ×3 (06:36→23:00)
[2019-05-14] MEDS: SILDENAFIL CITRATE 20 MG TABLET PO SCH ×3 (08:10→16:43)
[2019-05-14] MEDS: BUDESONIDE NEB 0.5 MG/2 ML AMPUL NEB SCH ×2 (08:23→19:22)
[2019-05-14] MEDS: DOCUSATE SODIUM 100 MG CAPSULE PO SCH ×2 (09:38→23:01)
[2019-05-14] MEDS: DIGOXIN 0.25 MG TABLET PO SCH (10:32)
[2019-05-14] MEDS: CARVEDILOL 6.25 MG TABLET PO SCH ×2 (10:32→23:00)
[2019-05-14] MEDS: FUROSEMIDE 20 MG TABLET PO SCH (10:33)
[2019-05-14] MEDS: ESCITALOPRAM OXALATE 10 MG TABLET PO SCH (10:33)
[2019-05-14] MEDS: ALPRAZOLAM 0.5 MG TABLET PO SCH ×2 (10:34→23:01)
--- NOTE | 2019-05-14 10:37 | PDOC PROGRESS REPORT ---
Subjective Progress Note for:: 05/14/19 Subjective:: Patient is currently doing fair Seen by Dr. Moore and just the trilogy machine Patient seen by the cardiology suggest the continues to current medications wait for the echo No chest pain no short of breath Reason For Visit: ACUTE COPD EXACERBATION Physical Exam Vital Signs: Temp Pulse Resp BP Pulse Ox 98.1 F 78 16 126/58 H 97 05/14/19 07:28 05/14/19 08:26 05/14/19 08:26 05/14/19 07:28 05/14/19 08:26 Pulse Oximeter Continuous Start: 05/09/19 03:29 Freq: RTQ4 Status: Complete Protocol: Document 05/10/19 08:00 [facility] (Rec: 05/10/19 09:57 [facility] [id number]) Pulse Oximetry Assessment Equipment Usage Equipment Discontinued Continuous SpO2 Machine # 3 Additional RT Notes Other No order for this equipment. Intake & Output 05/13/19 05/14/19 05/15/19 06:59 06:59 06:59 Intake Total 113 1234 480 Balance 113 1234 480 Weight 70.7 kg 70.2 kg General appearance: PRESENT: no acute distress, well-developed, well-nourished Head exam: PRESENT: atraumatic, normocephalic Eye exam: PRESENT: conjunctiva pink, EOMI, PERRLA. ABSENT: scleral icterus Ear exam: PRESENT: normal external ear exam Mouth exam: PRESENT: moist, tongue midline Neck exam: PRESENT: full ROM. ABSENT: carotid bruit, JVD, lymphadenopathy, thyromegaly Respiratory exam: PRESENT: clear to auscultation bianca Cardiovascular exam: PRESENT: RRR. ABSENT: diastolic murmur, rubs, systolic murmur Pulses: PRESENT: normal dorsalis pedis pul, +2 pedal pulses bilateral Vascular exam: PRESENT: normal capillary refill GI/Abdominal exam: PRESENT: normal bowel sounds, soft. ABSENT: distended, guarding, mass, organolmegaly, rebound, tenderness Rectal exam: PRESENT: deferred Neurological exam: PRESENT: alert, awake, oriented to person, oriented to place, oriented to time, oriented to situation, CN II-XII grossly intact. ABSENT: motor sensory deficit Psychiatric exam: PRESENT: appropriate affect, normal mood. ABSENT: homicidal ideation, suicidal ideation Skin exam: PRESENT: dry, intact, warm. ABSENT: cyanosis, rash Results Laboratory Results: 05/11/19 05:23 05/12/19 05:19 05/14/19 05:20 Carbonic Acid 2.10 H HCO3/H2CO3 Ratio 20:1 ABG pH 7.41 ABG pCO2 69.9 H* ABG pO2 89.6 ABG HCO3 43.5 H ABG O2 Saturation 96.6 ABG Base Excess 16.3 FiO2 32% 05/05/19 12:40 Troponin I < 0.012 Impressions: Chest X-Ray 05/05/19 10:23 IMPRESSION: NO ACUTE RADIOGRAPHIC FINDING IN THE CHEST. Assessment & Plan - Diagnosis (1) COPD exacerbation Is this a current diagnosis for this admission?: Yes (2) Anxiety and depression Is this a current diagnosis for this admission?: Yes (3) CHF (congestive heart failure) Qualifiers: Heart failure type: unspecified Heart failure chronicity: unspecified Qualified Code(s): I50.9 - Heart failure, unspecified Is this a current diagnosis for this admission?: Yes (4) Hypoxia Is this a current diagnosis for this admission?: Yes (5) Moderate to severe pulmonary hypertension Is this a current diagnosis for this admission?: Yes (6) Chronic respiratory failure Qualifiers: Respiratory failure complication: hypoxia Qualified Code(s): J96.11 - C hronic respiratory failure with hypoxia Is this a current diagnosis for this admission?: Yes - Time Time Spent with patient: 15-24 minutes Level of Care: TELE Medications reviewed and adjusted accordingly: Yes Anticipated discharge: Home with Homehealth Within: Other - Plan Summary Plan Summary: Continues to current medications I think patient Needs to use a wheelchair when the long distance because of the COPD with a chronic respiratory failure I do not think so patients can walk far that much
--- NOTE | 2019-05-14 13:11 | PDOC PROGRESS REPORT ---
Subjective Progress Note for:: 05/14/19 Subjective:: Patient seen and examined. Doing much better. Not short of breath this morning. Ambulating in room. Reason For Visit: ACUTE COPD EXACERBATION Physical Exam Vital Signs: Temp Pulse Resp BP Pulse Ox 98.2 F 74 16 116/47 L 98 05/14/19 11:49 05/14/19 11:49 05/14/19 11:49 05/14/19 11:49 05/14/19 11:49 Pulse Oximeter Continuous Start: 05/09/19 03:29 Freq: RTQ4 Status: Complete Protocol: Document 05/10/19 08:00 [facility] (Rec: 05/10/19 09:57 [facility] [id number]) Pulse Oximetry Assessment Equipment Usage Equipment Discontinued Continuous SpO2 Machine # 3 Additional RT Notes Other No order for this equipment. Intake & Output 05/13/19 05/14/19 05/15/19 06:59 06:59 06:59 Intake Total 113 1234 880 Balance 113 1234 880 Weight 70.7 kg 70.2 kg General appearance: PRESENT: no acute distress, thin Head exam: PRESENT: atraumatic Eye exam: PRESENT: conjunctiva pink, EOMI Mouth exam: PRESENT: moist Respiratory exam: PRESENT: decreased breath sounds, prolonged expiratory phas, symmetrical, unlabored Cardiovascular exam: PRESENT: RRR, +S1, +S2 Pulses: PRESENT: normal radial pulses GI/Abdominal exam: PRESENT: soft Rectal exam: PRESENT: deferred Musculoskeletal exam: PRESENT: normal inspection Neurological exam: PRESENT: alert, awake, oriented to person, oriented to place, oriented to time, oriented to situation Psychiatric exam: PRESENT: appropriate affect Skin exam: PRESENT: dry, intact, normal color Results Laboratory Results: 05/11/19 05:23 05/12/19 05:19 05/14/19 05:20 Carbonic Acid 2.10 H HCO3/H2CO3 Ratio 20:1 ABG pH 7.41 ABG pCO2 69.9 H* ABG pO2 89.6 ABG HCO3 43.5 H ABG O2 Saturation 96.6 ABG Base Excess 16.3 FiO2 32% 05/05/19 12:40 Troponin I < 0.012 Impressions: Chest X-Ray 05/05/19 10:23 IMPRESSION: NO ACUTE RADIOGRAPHIC FINDING IN THE CHEST. Assessment & Plan - Diagnosis (1) Moderate to severe pulmonary hypertension Is this a current diagnosis for this admission?: Yes Plan: This will be a reflection of COPD and longstanding lung disease. Agree with continued use of Revatio Patient will need outpatient right heart catheterization to further evaluate th erapeutic options. This can be arranged for later. (2) COPD exacerbation Is this a current diagnosis for this admission?: Yes Plan: Presently she is doing much better from a COPD standpoint. Continue present therapy.
[2019-05-15] MEDS: IPRATROPIUM/ALBUTEROL 0.5-2.5 MG/3 ML AMPUL NEB PRN (04:45)
[2019-05-15] MEDS: BUSPIRONE HCL 10 MG TABLET PO SCH ×3 (06:00→21:23)
[2019-05-15] MEDS: BUDESONIDE NEB 0.5 MG/2 ML AMPUL NEB SCH ×2 (07:05→21:20)
[2019-05-15] MEDS: SILDENAFIL CITRATE 20 MG TABLET PO SCH ×3 (08:17→17:22)
[2019-05-15] MEDS: ALPRAZOLAM 0.5 MG TABLET PO SCH ×2 (09:12→21:24)
[2019-05-15] MEDS: ESCITALOPRAM OXALATE 10 MG TABLET PO SCH (09:12)
[2019-05-15] MEDS: CARVEDILOL 6.25 MG TABLET PO SCH ×2 (09:13→21:24)
[2019-05-15] MEDS: FUROSEMIDE 20 MG TABLET PO SCH (09:14)
[2019-05-15] MEDS: DIGOXIN 0.25 MG TABLET PO SCH (09:15)
[2019-05-15] MEDS: DOCUSATE SODIUM 100 MG CAPSULE PO SCH ×2 (09:21→21:21)
--- NOTE | 2019-05-15 09:34 | PDOC PROGRESS REPORT ---
Subjective Progress Note for:: 05/15/19 Subjective:: Patient is currently doing well As per the trilogy machine we will the date the patient did not use any machine at home Discussed with the patient and encouraged to use the machine every day and also discussed with the patient family Because of noncompliance not using the machine for the chronic respiratory failure is a part of the recurrent admissions Reason For Visit: ACUTE COPD EXACERBATION Physical Exam Vital Signs: Temp Pulse Resp BP Pulse Ox 98.4 F 74 18 121/52 L 95 05/15/19 07:48 05/15/19 08:00 05/15/19 08:00 05/15/19 07:48 05/15/19 08:00 Pulse Oximeter Continuous Start: 05/09/19 03:29 Freq: RTQ4 Status: Complete Protocol: Document 05/10/19 08:00 [facility] (Rec: 05/10/19 09:57 [facility] [id number]) Pulse Oximetry Assessment Equipment Usage Equipment Discontinued Continuous SpO2 Machine # 3 Additional RT Notes Other No order for this equipment. Intake & Output 05/14/19 05/15/19 05/16/19 06:59 06:59 06:59 Intake Total 1234 1470 Balance 1234 1470 Weight 70.2 kg 70.5 kg General appearance: PRESENT: no acute distress Head exam: PRESENT: atraumatic, normocephalic Eye exam: PRESENT: conjunctiva pink, EOMI, PERRLA. ABSENT: scleral icterus Ear exam: PRESENT: normal external ear exam Mouth exam: PRESENT: moist, tongue midline Neck exam: PRESENT: full ROM. ABSENT: carotid bruit, JVD, lymphadenopathy, thyromegaly Respiratory exam: PRESENT: clear to auscultation bianca Cardiovascular exam: PRESENT: RRR. ABSENT: diastolic murmur, rubs, systolic murmur Pulses: PRESENT: normal dorsalis pedis pul, +2 pedal pulses bilateral Vascular exam: PRESENT: normal capillary refill GI/Abdominal exam: PRESENT: normal bowel sounds, soft. ABSENT: distended, guarding, mass, organolmegaly, rebound, tenderness Rectal exam: PRESENT: deferred Neurological exam: PRESENT: alert, awake, oriented to person, oriented to place, oriented to time, oriented to situation, CN II-XII grossly intact. ABSENT: motor sensory deficit Psychiatric exam: PRESENT: appropriate affect, normal mood. ABSENT: homicidal ideation, suicidal ideation Skin exam: PRESENT: dry, intact, warm. ABSENT: cyanosis, rash Results Laboratory Results: 05/11/19 05:23 05/12/19 05:19 05/05/19 12:40 Troponin I < 0.012 Impressions: Chest X-Ray 05/05/19 10:23 IMPRESSION: NO ACUTE RADIOGRAPHIC FINDING IN THE CHEST. Assessment & Plan - Diagnosis (1) COPD exacerbation Is this a current diagnosis for this admission?: Yes (2) Anxiety and depression Is this a current diagnosis for this admission?: Yes (3) CHF (congestive heart failure) Qualifiers: Heart failure type: unspecified Heart failure chronicity: unspecified Qualified Code(s): I50.9 - Heart failure, unspecified Is this a current diagnosis for this admission?: Yes (4) Hypoxia Is this a current diagnosis for this admission?: Yes (5) Moderate to severe pulmonary hypertension Is this a current diagnosis for this admission?: Yes (6) Chronic respiratory failure Qualifiers: Respiratory failure complication: hypoxia Qualified Code(s): J96.11 - Chronic respiratory failure with hypoxia Is this a current diagnosis for this admission?: Yes - Time Time Spent with patient: 15-24 minutes Level of Care: TELE Medications reviewed and adjusted accordingly: Yes Anticipated discharge: Home with Homehealth Within: Other - Plan Summary Plan Summary: Continues to current medications
--- NOTE | 2019-05-15 09:50 | XCELERA REPORT ---
[address] [address] Transthoracic Echocardiogram Report Name: CECILE BERRIOS Age: 63 yrs Gender: Female : 1955 Patient Status: Inpatient Patient Location: [address] [place], [place] [address] Study Date: 05/14/2019 05:36 PM Height: 63 in Weight: 155 lb BSA: 1.7 m2 Procedure: A complete two-dimensional transthoracic echocardiogram was performed (2D, M-mode, spectral and color flow Doppler). The study was technically adequate with some images being suboptimal in quality. Reason For Study: END STAGE COPD Ordering Physician: DANIAL HALL Performed By: Cheryl Ahn Interpretation Summary The left ventricular ejection fraction is normal. Doppler measurements suggest pseudonormalized left ventricular relaxation, which is associated with grade II/IV or mild to moderate diastolic dysfunction There is borderline concentric left ventricular hypertrophy. The left ventricle is grossly normal size. Wall motion cannot be accurately commented on, but no definite regional wall motion abnormalities noted. The right ventricle is mild to moderately dilated. The right ventricle appears to be hypertrophied The right ventricular systolic function is mild to moderately reduced. The left atrial size is normal. The right atrium is moderately dilated. There is a trace to mild amount of mitral regurgitation There is no mitral valve stenosis. No aortic regurgitation is present. There is no aortic valve stenosis There is a mild amount of tricuspid regurgitation There is moderate to severe pulmonary hypertension by echo Best estimated RVSP is approximately 60-65 mm/Hg. The inferior vena cava appeared normal and decreased > 50% with respiration (RAP 5-10 mmHg) The aortic root is not well visualized but is probably normal size. Minimal pericardial effusion. MMode/2D Measurements & Calculations RVDd: 2.4 cm LVIDd: 4.3 cm FS: 38.9 % Ao root diam: 2.5 cm IVSd: 0.97 cm LVIDs: 2.6 cm EDV(Teich): Ao root area: 84.3 ml LVPWd: 1.0 cm 4.9 cm2 ESV(Teich): LA dimension: 3.0 cm 25.6 ml EF(Teich): 69.6 % LVLd ap4: 6.7 cm SV(MOD-sp4): EDV(MOD-sp4): 47.0 ml 56.0 ml LVLs ap4: 4.7 cm ESV(MOD-sp4): 9.0 ml EF(MOD-sp4): 83.9 % Doppler Measurements & Calculations MV E max praveena: MV P1/2t max praveena: Ao V2 max: LV V1 max P.8 cm/sec 137.1 cm/sec 164.2 cm/sec 6.9 mmHg MV A max praveena: MV P1/2t: 51.6 msec Ao max PG: LV V1 max: 109.1 cm/sec 10.8 mmHg 131.1 cm/sec MVA(P1/2t): 4.3 cm2 MV E/A: 0.88 MV dec slope: 778.9 cm/sec2 MV dec time: 0.17 sec PA V2 max: TR max praveena: MV P1/2t-pr_phl: 124.9 cm/sec 376.0 cm/sec 51.6 msec PA max P.2 mmHgTR max P.5 mmHg Left Ventricle The left ventricle is grossly normal size. There is borderline concentric left ventricular hypertrophy. The left ventricular ejection fraction is normal. Doppler measurements suggest pseudonormalized left ventricular relaxation, which is associated with grade II/IV or mild to moderate diastolic dysfunction. Wall motion cannot be accurately commented on, but no definite regional wall motion abnormalities noted. Right Ventricle The right ventricle is mild to moderately dilated. The right ventricle appears to be hypertrophied. The right ventricular systolic function is mild to moderately reduced. Atria The right atrium is moderately dilated. The left atrial size is normal. The interatrial septum is intact with no evidence for an atrial septal defect. Mitral Valve The mitral valve is grossly normal. There is no mitral valve stenosis. There is a trace to mild amount of mitral regurgitation. Aortic Valve The aortic valve is grossly normal. There is no aortic valve stenosis. No aortic regurgitation is present. Tricuspid Valve The tricuspid valve is not well visualized, but is grossly normal. There is no tricuspid stenosis. There is a mild amount of tricuspid regurgitation. There is moderate to severe pulmonary hypertension by echo. Best estimated RVSP is approximately 60-65 mm/Hg. Pulmonic Valve The pulmonic valve is not well visualized. Great Vessels The aortic root is not well visualized but is probably normal size. The inferior vena cava appeared normal and decreased > 50% with respiration (RAP 5-10 mmHg). Effusions Minimal pericardial effusion. : DANIAL HALL Shyamal
[2019-05-15 13:46] LABS: ARTERIAL BLOOD BASE EXCESS 15.9 mmol/L; ARTERIAL BLOOD H2CO3 2.29 mmol/L (1.05-1.35); ARTERIAL BLOOD HCO3 43.9 mmol/L (20-24); ARTERIAL BLOOD O2 SATURATION 94.9 % (94-98); ARTERIAL BLOOD PH 7.38 (7.35-7.45); ARTERIAL BLOOD PO2 79.4 mmHg (80-100); ARTERIAL BLOOD TOTAL CO2 46.3 mmol/L (21-25)
[2019-05-15 13:49] LABS: ARTERIAL BLOOD FIO2 32%
[2019-05-16] MEDS: BUSPIRONE HCL 10 MG TABLET PO SCH ×3 (08:03→21:29)
[2019-05-16] MEDS: SILDENAFIL CITRATE 20 MG TABLET PO SCH ×3 (08:04→17:15)
[2019-05-16] MEDS: BUDESONIDE NEB 0.5 MG/2 ML AMPUL NEB SCH ×2 (08:31→20:30)
[2019-05-16] MEDS: ESCITALOPRAM OXALATE 10 MG TABLET PO SCH (11:32)
[2019-05-16] MEDS: ALPRAZOLAM 0.5 MG TABLET PO SCH ×2 (11:33→21:28)
[2019-05-16] MEDS: DIGOXIN 0.25 MG TABLET PO SCH (11:33)
[2019-05-16] MEDS: CARVEDILOL 6.25 MG TABLET PO SCH ×2 (11:33→21:28)
[2019-05-16] MEDS: FUROSEMIDE 20 MG TABLET PO SCH (11:33)
[2019-05-16] MEDS: DOCUSATE SODIUM 100 MG CAPSULE PO SCH ×2 (11:55→21:30)
--- NOTE | 2019-05-16 13:09 | PDOC PROGRESS REPORT ---
Subjective Progress Note for:: 05/16/19 Subjective:: Patient is currently doing fair Start using the trilogy machines and the last night the patient O2 sat was low when the machine and as per discussed with the respiratory most likely patient does not have any oxygen flow Patient's otherwise no other issues He lives a very big challenge of this patient's to discharging in very frequently back in the hospital due to the noncompliance with the machine and I think patients needs to be a more educated about the machines and oxygen supplements before the patient's discharge home Reason For Visit: ACUTE COPD EXACERBATION Physical Exam Vital Signs: Temp Pulse Resp BP Pulse Ox 98.1 F 85 18 102/46 L 94 05/16/19 08:24 05/16/19 08:31 05/16/19 08:31 05/16/19 08:24 05/16/19 08:31 Pulse Oximeter Continuous Start: 05/09/19 03:29 Freq: RTQ4 Status: Complete Protocol: Document 05/10/19 08:00 [facility] (Rec: 05/10/19 09:57 [facility] [id number]) Pulse Oximetry Assessment Equipment Usage Equipment Discontinued Continuous SpO2 Machine # 3 Additional RT Notes Other No order for this equipment. Intake & Output 05/15/19 05/16/19 05/17/19 06:59 06:59 06:59 Intake Total 1470 1050 Balance 1470 1050 Weight 70.5 kg 70.6 kg General appearance: PRESENT: no acute distress, well-developed, well-nourished Head exam: PRESENT: atraumatic, normocephalic Eye exam: PRESENT: conjunctiva pink, EOMI, PERRLA. ABSENT: scleral icterus Ear exam: PRESENT: normal external ear exam Mouth exam: PRESENT: moist, tongue midline Neck exam: PRESENT: full ROM. ABSENT: carotid bruit, JVD, lymphadenopathy, thyromegaly Respiratory exam: PRESENT: clear to auscultation bianca Cardiovascular exam: PRESENT: RRR. ABSENT: diastolic murmur, rubs, systolic murmur Vascular exam: PRESENT: normal capillary refill GI/Abdominal exam: PRESENT: normal bowel sounds, soft. ABSENT: distended, guarding, mass, organolmegaly, rebound, tenderness Rectal exam: PRESENT: deferred Neurological exam: PRESENT: alert, awake, oriented to person, oriented to place, oriented to time, oriented to situation, CN II-XII grossly intact. ABSENT: motor sensory deficit Psychiatric exam: PRESENT: appropriate affect, normal mood. ABSENT: homicidal ideation, suicidal ideation Skin exam: PRESENT: dry, intact, warm. ABSENT: cyanosis, rash Results Laboratory Results: 05/11/19 05:23 05/12/19 05:19 05/15/19 09:20 Carbonic Acid 2.29 H HCO3/H2CO3 Ratio 19:1 ABG pH 7.38 ABG pCO2 76.0 H* ABG pO2 79.4 L ABG HCO3 43.9 H ABG O2 Saturation 94.9 ABG Base Excess 15.9 FiO2 32% 05/05/19 12:40 Troponin I < 0.012 Impressions: Chest X-Ray 05/05/19 10:23 IMPRESSION: NO ACUTE RADIOGRAPHIC FINDING IN THE CHEST. Assessment & Plan - Diagnosis (1) COPD exacerbation Is this a current diagnosis for this admission?: Yes (2) Anxiety and depression Is this a current diagnosis for this admission?: Yes (3) CHF (congestive heart failure) Qualifiers: Heart failure type: unspecified Heart failure chronicity: unspecified Qualified Code(s): I50.9 - Heart failure, unspecified Is this a current diagnosis for this admission?: Yes (4) Hypoxia Is this a current diagnosis for this admission?: Yes (5) Moderate to severe pulmonary hypertension Is this a current diagnosis for this admission?: Yes (6) Chronic respiratory failure Qualifiers: Respiratory failure complication: hypoxia Qualified Code(s): J96.11 - Chronic respiratory failure with hypoxia Is this a current diagnosis for this admission?: Yes - Time Time Spent with patient: 15-24 minutes Level of Care: TELE Medications reviewed and adjusted accordingly: Yes Anticipated discharge: Home with Homehealth Within: Other - Plan Summary Plan Summary: Discussed with the respiratory today to adjust the trilogy machines with the oxygen's patient also seen by Dr. Moore's
[2019-05-17 05:57] LABS: BLOOD UREA NITROGEN 12 mg/dL (7-20); CHLORIDE 98 mmol/L (98-107); GLUCOSE 102 mg/dL (75-110); POTASSIUM 3.9 mmol/L (3.6-5.0)
[2019-05-17 06:14] LABS: ANION GAP 3 (5-19)
[2019-05-17 06:17] LABS: CARBON DIOXIDE 40 mmol/L (22-30)
[2019-05-17] MEDS: BUSPIRONE HCL 10 MG TABLET PO SCH ×3 (06:51→21:38)
[2019-05-17] MEDS: SILDENAFIL CITRATE 20 MG TABLET PO SCH ×3 (08:10→18:17)
[2019-05-17] MEDS: BUDESONIDE NEB 0.5 MG/2 ML AMPUL NEB SCH ×2 (08:14→20:04)
[2019-05-17 10:28] LABS: ARTERIAL BLOOD H2CO3 2.13 mmol/L (1.05-1.35); ARTERIAL BLOOD HCO3 42.2 mmol/L (20-24); ARTERIAL BLOOD O2 SATURATION 93.1 % (94-98); ARTERIAL BLOOD PH 7.39 (7.35-7.45); ARTERIAL BLOOD PO2 69.4 mmHg (80-100); ARTERIAL BLOOD TOTAL CO2 44.3 mmol/L (21-25)
[2019-05-17 10:29] LABS: ARTERIAL BLOOD FIO2 3L
[2019-05-17 10:34] LABS: ARTERIAL BLOOD PCO2 70.6 mmHg (35-45)
[2019-05-17] MEDS: FUROSEMIDE 20 MG TABLET PO SCH (10:43)
[2019-05-17] MEDS: DIGOXIN 0.25 MG TABLET PO SCH (10:43)
[2019-05-17] MEDS: DOCUSATE SODIUM 100 MG CAPSULE PO SCH ×2 (10:43→21:38)
[2019-05-17] MEDS: ESCITALOPRAM OXALATE 10 MG TABLET PO SCH (10:43)
[2019-05-17] MEDS: CARVEDILOL 6.25 MG TABLET PO SCH ×2 (10:44→21:38)
[2019-05-17] MEDS: ALPRAZOLAM 0.5 MG TABLET PO SCH ×2 (12:26→21:38)
--- NOTE | 2019-05-17 16:27 | PDOC PROGRESS REPORT ---
Subjective Progress Note for:: 05/17/19 Subjective:: She has permissive hypercapnia, chronic respiratory failure with hypercapnia and compensatory metabolic alkalosis, seen by the bedside, she is on noninvasive positive pressure ventilation, admitted for COPD exacerbation Reason For Visit: ACUTE COPD EXACERBATION Physical Exam Vital Signs: Temp Pulse Resp BP Pulse Ox 97.6 F 71 19 102/56 L 95 05/17/19 15:16 05/17/19 15:16 05/17/19 15:16 05/17/19 15:16 05/17/19 15:16 Pulse Oximeter Continuous Start: 05/09/19 03:29 Freq: RTQ4 Status: Complete Protocol: Document 05/10/19 08:00 [facility] (Rec: 05/10/19 09:57 [facility] [id number]) Pulse Oximetry Assessment Equipment Usage Equipment Discontinued Continuous SpO2 Machine # 3 Additional RT Notes Other No order for this equipment. Intake & Output 05/16/19 05/17/19 05/18/19 06:59 06:59 06:59 Intake Total 1050 720 Balance 1050 720 Weight 70.6 kg 70.6 kg General appearance: PRESENT: no acute distress Eye exam: PRESENT: PERRLA Respiratory exam: PRESENT: decreased breath sounds Cardiovascular exam: PRESENT: +S1, +S2 GI/Abdominal exam: PRESENT: soft Neurological exam: PRESENT: alert Results Laboratory Results: 05/11/19 05:23 05/17/19 05:18 05/17/19 05/17/19 05:18 10:10 Carbonic Acid 2.13 H HCO3/H2CO3 Ratio 19:1 ABG pH 7.39 ABG pCO2 70.6 H* ABG pO2 69.4 L ABG HCO3 42.2 H ABG O2 Saturation 93.1 L ABG Base Excess 15.0 FiO2 3L Sodium 140.8 Potassium 3.9 Chloride 98 Carbon Dioxide 40 H* Anion Gap 3 L BUN 12 Creatinine 0.97 Est GFR ( Amer) > 60 Glucose 102 Calcium 9.0 05/05/19 12:40 Troponin I < 0.012 Impressions: Chest X-Ray 05/05/19 10:23 IMPRESSION: NO ACUTE RADIOGRAPHIC FINDING IN THE CHEST. Assessment & Plan - Diagnosis (1) Chronic respiratory failure Qualifiers: Respiratory failure complication: hypoxia Qualified Code(s): J96.11 - Chronic respiratory failure with hypoxia Is this a current diagnosis for this admission?: Yes Plan: Continue present treatment (2) COPD exacerbation Is this a current diagnosis for this admission?: Yes - Time Time Spent with patient: 35 or more minutes
[2019-05-18] MEDS: BUSPIRONE HCL 10 MG TABLET PO SCH ×3 (05:25→21:43)
[2019-05-18] MEDS: BUDESONIDE NEB 0.5 MG/2 ML AMPUL NEB SCH ×2 (07:33→20:22)
[2019-05-18] MEDS: IPRATROPIUM/ALBUTEROL 0.5-2.5 MG/3 ML AMPUL NEB PRN (07:33)
[2019-05-18] MEDS: ALPRAZOLAM 0.5 MG TABLET PO SCH ×2 (09:02→21:43)
[2019-05-18] MEDS: DIGOXIN 0.25 MG TABLET PO SCH (09:02)
[2019-05-18] MEDS: ESCITALOPRAM OXALATE 10 MG TABLET PO SCH (09:02)
[2019-05-18] MEDS: DOCUSATE SODIUM 100 MG CAPSULE PO SCH ×2 (09:02→21:43)
[2019-05-18] MEDS: FUROSEMIDE 20 MG TABLET PO SCH (09:02)
[2019-05-18] MEDS: CARVEDILOL 6.25 MG TABLET PO SCH ×2 (09:02→21:42)
[2019-05-18] MEDS: SILDENAFIL CITRATE 20 MG TABLET PO SCH ×3 (09:03→17:22)
--- NOTE | 2019-05-18 15:31 | PDOC PROGRESS REPORT ---
Subjective Progress Note for:: 05/18/19 Subjective:: Patient with chronic respiratory failure, permissive hypercapnia, she continues to require noninvasive positive pressure ventilation, BiPAP seen by the bedside no new complaints Reason For Visit: ACUTE COPD EXACERBATION Physical Exam Vital Signs: Temp Pulse Resp BP Pulse Ox 97.7 F 67 20 118/71 97 05/18/19 11:12 05/18/19 14:00 05/18/19 11:12 05/18/19 11:12 05/18/19 11:12 Pulse Oximeter Continuous Start: 05/09/19 03:29 Freq: RTQ4 Status: Complete Protocol: Document 05/10/19 08:00 [facility] (Rec: 05/10/19 09:57 [facility] [id number]) Pulse Oximetry Assessment Equipment Usage Equipment Discontinued Continuous SpO2 Machine # 3 Additional RT Notes Other No order for this equipment. Intake & Output 05/17/19 05/18/19 05/19/19 06:59 06:59 06:59 Intake Total 720 1320 Output Total 720 Balance 720 600 Weight 70.6 kg 71.3 kg General appearance: PRESENT: no acute distress Eye exam: PRESENT: PERRLA Respiratory exam: PRESENT: clear to auscultation bianca Cardiovascular exam: PRESENT: +S1, +S2 Results Laboratory Results: 05/11/19 05:23 05/17/19 05:18 05/05/19 12:40 Troponin I < 0.012 Impressions: Chest X-Ray 05/05/19 10:23 IMPRESSION: NO ACUTE RADIOGRAPHIC FINDING IN THE CHEST. Assessment & Plan - Diagnosis (1) Chronic respiratory failure Qualifiers: Respiratory failure complication: hypoxia Qualified Code(s): J96.11 - Chronic respiratory failure with hypoxia Is this a current diagnosis for this admission?: Yes Plan: Continue present treatment (2) COPD exacerbation Is this a current diagnosis for this admission?: Yes - Time Time Spent with patient: 25-34 minutes
[2019-05-19] MEDS: BUSPIRONE HCL 10 MG TABLET PO SCH ×2 (05:23→13:03)
[2019-05-19] MEDS: IPRATROPIUM/ALBUTEROL 0.5-2.5 MG/3 ML AMPUL NEB PRN (08:12)
[2019-05-19] MEDS: BUDESONIDE NEB 0.5 MG/2 ML AMPUL NEB SCH (08:12)
--- NOTE | 2019-05-19 08:18 | PDOC DISCHARGE SUMMARY ---
Impression - Admit/DC Date/PCP Admission Date/Primary Care Provider: 05/08/19 08:00 MAN ESPINOZA MD Discharge Date: 05/19/19 - Discharge Diagnosis (1) COPD exacerbation Is this a current diagnosis for this admission?: Yes (2) Anxiety and depression Is this a current diagnosis for this admission?: Yes (3) CHF (congestive heart failure) Is this a current diagnosis for this admission?: Yes (4) Hypoxia Is this a current diagnosis for this admission?: Yes (5) Moderate to severe pulmonary hypertension Is this a current diagnosis for this admission?: Yes (6) Chronic respiratory failure Is this a current diagnosis for this admission?: Yes - Additional Information Resuscitation Status: Full Code Discharge Diet: Regular Discharge Activity: Activity As Tolerated Referrals: DANIAL HALL MD [ACTIVE STAFF] - 05/19/19 11:00 am Prescriptions: Buspirone HCl [Buspar 10 mg Tablet] 5 mg PO Q8 #90 tablet Budesonide [Pulmicort Neb 0.5 mg/2 ml Ampul] 0.5 mg NEB RTQ12 #60 ampul.neb Sildenafil Citrate [Revatio 20 mg Tablet] 20 mg PO MEALS #30 tablet Home Medications: Alprazolam [Xanax 0.25 mg Tablet] 0.5 mg PO Q12 02/12/19 Carvedilol [Coreg 6.25 mg Tablet] 6.25 mg PO Q12 tablet 04/02/19 Digoxin [Lanoxin 0.25 mg Tablet] 0.25 mg PO DAILY tablet 04/02/19 Docusate Sodium [Colace 100 mg Capsule] 100 mg PO Q12 capsule 04/02/19 Fluticasone/Umeclidin/Vilanter [Trelegy 100-62.5-25 Mcg Ellipta 14 Dose/Dpi] 1 inh IH DAILY inhaler 04/02/19 Furosemide [Lasix 20 mg Tablet] 20 mg PO DAILY tablet 04/02/19 Escitalopram Oxalate [Lexapro 10 mg Tablet] 5 mg PO DAILY 05/05/19 Budesonide [Pulmicort Neb 0.5 mg/2 ml Ampul] 0.5 mg NEB RTQ12 #60 ampul.neb 05/15/19 Buspirone HCl [Buspar 10 mg Tablet] 5 mg PO Q8 #90 tablet 05/15/19 Sildenafil Citrate [Revatio 20 mg Tablet] 20 mg PO MEALS #30 tablet 05/15/19 Sildenafil Citrate [Revatio 20 mg Tablet] 20 mg PO MEALS #30 tablet 05/15/19 History of Present Illiness History of Present Illness: CECILE BERRIOS is a 63 year old female This is a 63-year-old female admitting in the hospital for the acute respiratory distressed COPD acute exacerbation of chronic COPD and chronic respiratory failure and pulmonary hypertension's Hospital Course Hospital Course: This is a 63-year-old female's with a history of a chronic respiratory failure severe COPD pulmonary hypertension's multiple other comorbidities with a several hospital admission in and out for the last several months basically a came to the office with the respiratory distress sent to the EMS to the emergency department and admitting in the hospital Patient at this point put COPD treatments in the respiratory treatments and consult Dr. Moore Most pertinent trilogy machine the record review that patients never use it and there is a part of problems with the patient's chronic respiratory failure Patient's trilogy machine's was used in the hospital very extensive education was given to the patient's by respiratory therapist to how to use it patient is required of 3 to 4 L nasal cannula oxygen's Patient is still very challenge about the respiratory status and the patient when she walk around Still desat Patient's otherwise responds very well steroid was already discontinues patient was put on a nebulizer Pulmicort patient is back to the baseline's still requiring 4 L nasal cannula trilogy machines when patients lay down and patients probably use ViagraAs prescribed for pulmonary hypertension's which patient was not using in the past Patient is also given wheelchair follow long distance also need a pulmonary rehab and also continues follow-up with the pulmonary Patient's otherwise very Discussed with the patient and the son regarding the continues close follow-up Challenging patient about discharging because noncompliance issue not using the machine not using the oxygen's properly for the last 3 days with extensive education was given to the patient's about how to use it patient understand Patient significant have a anxiety problems and increase the BuSpar Physical Exam Vital Signs: Temp Pulse Resp BP Pulse Ox 98.2 F 90 20 108/61 94 05/19/19 00:30 05/19/19 07:00 05/19/19 00:30 05/19/19 00:30 05/19/19 00:30 Pulse Oximeter Continuous Start: 05/09/19 03:29 Freq: RTQ4 Status: Complete Protocol: Document 05/10/19 08:00 [facility] (Rec: 05/10/19 09:57 [facility] [id number]) Pulse Oximetry Assessment Equipment Usage Equipment Discontinued Continuous SpO2 Machine # 3 Additional RT Notes Other No order for this equipment. Intake & Output 05/18/19 05/19/19 05/20/19 06:59 06:59 06:59 Intake Total 1320 422 Output Total 720 600 Balance 600 -178 Weight 71.3 kg 70.9 kg General appearance: PRESENT: no acute distress, well-developed, well-nourished Head exam: PRESENT: atraumatic, normocephalic Eye exam: PRESENT: conjunctiva pink, EOMI, PERRLA. ABSENT: scleral icterus Ear exam: PRESENT: normal external ear exam Mouth exam: PRESENT: moist, tongue midline Neck exam: ABSENT: carotid bruit, JVD, lymphadenopathy, thyromegaly Respiratory exam: PRESENT: clear to auscultation bianca. ABSENT: rales, rhonchi, wheezes Cardiovascular exam: PRESENT: RRR. ABSENT: diastolic murmur, rubs, systolic murmur Pulses: PRESENT: normal dorsalis pedis pul Vascular exam: PRESENT: normal capillary refill GI/Abdominal exam: PRESENT: normal bowel sounds, soft. ABSENT: distended, guarding, mass, organolmegaly, rebound, tenderness Rectal exam: PRESENT: deferred Extremities exam: PRESENT: full ROM. ABSENT: calf tenderness, clubbing, pedal edema Neurological exam: PRESENT: alert, awake, oriented to person, oriented to place, oriented to time, oriented to situation, CN II-XII grossly intact. ABSENT: motor sensory deficit Psychiatric exam: PRESENT: appropriate affect, normal mood. ABSENT: homicidal ideation, suicidal ideation Skin exam: PRESENT: dry, intact, warm. ABSENT: cyanosis, rash Results Laboratory Results: WBC 12.0 10^3/uL (4.0-10.5) H 05/11/19 05:23 RBC 3.20 10^6/uL (3.72-5.28) L 05/11/19 05:23 Hgb 10.0 g/dL (12.0-15.5) L 05/11/19 05:23 Hct 30.6 % (36.0-47.0) L 05/11/19 05:23 MCV 96 fl (80-97) 05/11/19 05:23 MCH 31.4 pg (27.0-33.4) 05/11/19 05:23 MCHC 32.8 g/dL (32.0-36.0) 05/11/19 05:23 RDW 14.1 % (11.5-14.0) H 05/11/19 05:23 Plt Count 342 10^3/uL (150-450) 05/11/19 05:23 Lymph % (Auto) Not Reportable 05/11/19 05:23 Robeson % (Auto) Not Reportable 05/11/19 05:23 Eos % (Auto) Not Reportable 05/11/19 05:23 Baso % (Auto) Not Reportable 05/11/19 05:23 Absolute Neuts (auto) Not Reportable 05/11/19 05:23 Absolute Lymphs (auto) Not Reportable 05/11/19 05:23 Absolute Monos (auto) Not Reportable 05/11/19 05:23 Absolute Eos (auto) Not Reportable 05/11/19 05:23 Absolute Basos (auto) Not Reportable 05/11/19 05:23 Total Counted 100 05/11/19 05:23 Seg Neutrophils % Not Reportable 05/11/19 05:23 Seg Neuts % (Manual) 82 % (42-78) H 05/11/19 05:23 Band Neutrophils % 1 % (3-5) L 05/11/19 05:23 Lymphocytes % (Manual) 9 % (13-45) L 05/11/19 05:23 Monocytes % (Manual) 7 % (3-13) 05/11/19 05:23 Eosinophils % (Manual) 1 % (0-6) 05/11/19 05:23 Basophils % (Manual) 0 % (0-2) 05/11/19 05:23 Abs Neuts (Manual) 10.0 10^3/uL (1.7-8.2) H 05/11/19 05:23 Abs Lymphs (Manual) 1.1 10^3/uL (0.5-4.7) 05/11/19 05:23 Abs Monocytes (Manual) 0.8 10^3/uL (0.1-1.4) 05/11/19 05:23 Absolute Eos (Manual) 0.1 10^3/uL (0.0-0.6) 05/11/19 05:23 Abs Basophils (Manual) 0.0 10^3/uL (0.0-0.2) 05/11/19 05:23 Clumped Platelets PRESENT 05/09/19 03:57 Platelet Comment ADEQUATE 05/11/19 05:23 Poikilocytosis SLIGHT 05/09/19 03:57 Basophilic Stippling PRESENT 05/09/19 03:57 Anisocytosis SLIGHT 05/11/19 05:23 Macrocytosis SLIGHT 05/11/19 05:23 Ovalocytes SLIGHT 05/09/19 03:57 Carbonic Acid 2.13 mmol/L (1.05-1.35) H 05/17/19 10:10 HCO3/H2CO3 Ratio 19:1 05/17/19 10:10 ABG pH 7.39 (7.35-7.45) 05/17/19 10:10 ABG pCO2 70.6 mmHg (35-45) H* 05/17/19 10:10 ABG pO2 69.4 mmHg (80-100) L 05/17/19 10:10 ABG HCO3 42.2 mmol/L (20-24) H 05/17/19 10:10 ABG Total CO2 44.3 mmol/L (21-25) H 05/17/19 10:10 ABG O2 Saturation 93.1 % (94-98) L 05/17/19 10:10 ABG Base Excess 15.0 mmol/L 05/17/19 10:10 FiO2 3L 05/17/19 10:10 Sodium 140.8 mmol/L (137-145) 05/17/19 05:18 Potassium 3.9 mmol/L (3.6-5.0) 05/17/19 05:18 Chloride 98 mmol/L (98-107) 05/17/19 05:18 Carbon Dioxide 40 mmol/L (22-30) H* 05/17/19 05:18 Anion Gap 3 (5-19) L 05/17/19 05:18 BUN 12 mg/dL (7-20) 05/17/19 05:18 Creatinine 0.97 mg/dL (0.52-1.25) 05/17/19 05:18 Est GFR ( Amer) > 60 (>60) 05/17/19 05:18 Est GFR (MDRD) Non-Af 58 (>60) L 05/17/19 05:18 Glucose 102 mg/dL (75-110) 05/17/19 05:18 Calcium 9.0 mg/dL (8.4-10.2) 05/17/19 05:18 Total Bilirubin 0.5 mg/dL (0.2-1.3) 05/05/19 10:13 Direct Bilirubin 0.2 mg/dL (0.0-0.4) 05/05/19 10:13 Neonat Total Bilirubin Not Reportable 05/05/19 10:13 Neonat Direct Bilirubin Not Reportable 05/05/19 10:13 Neonat Indirect Bili Not Reportable 05/05/19 10:13 AST 20 U/L (14-36) 05/05/19 10:13 ALT 11 U/L (<35) 05/05/19 10:13 Alkaline Phosphatase 82 U/L (38-126) 05/05/19 10:13 Troponin I < 0.012 ng/mL 05/05/19 12:40 Total Protein 7.0 g/dL (6.3-8.2) 05/05/19 10:13 Albumin 3.5 g/dL (3.5-5.0) 05/05/19 10:13 05/05/19 12:40 Troponin I < 0.012 Impressions: Chest X-Ray 05/05/19 10:23 IMPRESSION: NO ACUTE RADIOGRAPHIC FINDING IN THE CHEST. Plan Time Spent: Greater than 30 Minutes - Follow outpatients Dr. Moore's in the pulmonary rehab Stroke Is this a Stroke Patient?: No Acute Heart Failure - Is this a Heart Failure Patient?: No
[2019-05-19] MEDS: CARVEDILOL 6.25 MG TABLET PO SCH (09:16)
[2019-05-19] MEDS: ESCITALOPRAM OXALATE 10 MG TABLET PO SCH (09:16)
[2019-05-19] MEDS: SILDENAFIL CITRATE 20 MG TABLET PO SCH ×2 (09:16→11:04)
[2019-05-19] MEDS: DIGOXIN 0.25 MG TABLET PO SCH (09:16)
[2019-05-19] MEDS: ALPRAZOLAM 0.5 MG TABLET PO SCH (09:16)
[2019-05-19] MEDS: FUROSEMIDE 20 MG TABLET PO SCH (09:16)
[2019-05-19] MEDS: DOCUSATE SODIUM 100 MG CAPSULE PO SCH (09:19)
[2019-05-19 13:12] VITALS: BP 124/59
== END 2019-05-19 13:41 | disposition home health service (06) | DRG 190 ==
LOC: ER 09:56 → EH 14:26 → INTOOBSV 14:26 → 4N 21:35 → OBSVTOIN 05-08 08:00
PROVIDERS: ADMIT Family Medicine; ATTEND Family Medicine
PROC: 5A09457 Assistance with Respiratory Ventilation, 24-96 Consecutive Hours, Continuous Positive Airway Pressure (ICD-10-PCS; principal; 2019-05-12)
DX: J44.1 Chronic obstructive pulmonary disease with (acute) exacerbation (principal); J96.21 Acute and chronic respiratory failure with hypoxia; J96.22 Acute and chronic respiratory failure with hypercapnia; I50.32 Chronic diastolic (congestive) heart failure; F41.9 Anxiety disorder, unspecified; F32.9 Major depressive disorder, single episode, unspecified; I11.0 Hypertensive heart disease with heart failure; I27.21 Secondary pulmonary arterial hypertension; Z79.899 Other long term (current) drug therapy; Z87.891 Personal history of nicotine dependence; Z87.820 Personal history of traumatic brain injury; Z82.49 Family history of ischemic heart disease and other diseases of the circulatory system; Z99.81 Dependence on supplemental oxygen; Z91.19 Patient's noncompliance with other medical treatment and regimen
CPT/HCPCS: 36415; 36600; 71045; 80048; 80053; 82803; 84484; 85025; 87040; 93005; 93010; 93306; 94640; 94660; 94762; 96365; 99285; G0378; J2920; J2930; J3490; J7060; J7512; J7620

== ENCOUNTER 2019-05-25 19:55 | Inpatient (IN) | payer BC ==
[2019-05-25] MEDS ORDERED: METHYLPREDNISOLONE INJ 125 MG/2 ML SDV IV ONE (20:45)
[2019-05-25] MEDS ORDERED: IPRATROPIUM/ALBUTEROL 0.5-2.5 MG/3 ML AMPUL NEB ONE (20:45)
--- NOTE | 2019-05-25 20:47 | ER Document Report ---
ED Respiratory Problem - General Stated Complaint: LOW OXYGEN LEVEL Time Seen by Provider: 05/25/19 20:38 Notes: Patient is a 63-year-old female that comes emergency department for chief complaint of shortness of breath, she comes by EMS from home, she states that at home her pulse oxygen saturation was reading low, at times as low as in the 60s. She states she also started feeling short of breath today. She denies cough, fever, chest pain, dizziness. She states that when she was situating her chair at home she started having discomfort in her lower back near the buttocks as well. She denies abdominal pain or urinary symptoms. She denies focal numbness or weakness. She uses 2-3L oxygen via nasal cannula at all times, has a history of COPD, CHF, hypertension. She reports compliance with all her medications. TRAVEL OUTSIDE OF THE [place] IN LAST 30 DAYS: No - Related Data Allergies/Adverse Reactions: No Known Allergies Allergy (Verified 01/18/18 18:24) Past Medical History - General Information source: Patient - Social History Smoking Status: Former Smoker Frequency of alcohol use: None Drug Abuse: None Lives with: Family Family History: COPD, DM, Hypertension, Malignancy. denies: Arthritis, CAD, CVA, Hyperlipidemia, Thyroid Disfunction - Past Medical History Cardiac Medical History: Reports: Hx Congestive Heart Failure, Hx Hypertension Denies: Hx Atrial Fibrillation, Hx Coronary Artery Disease, Hx DVT, Hx Heart Attack, Hx Pulmonary Embolism Pulmonary Medical History: Reports: Hx Bronchitis, Hx COPD, Hx Respiratory Failure Neurological Medical History: Denies: Hx Seizures Endocrine Medical History: Denies: Hx Diabetes Mellitus Type 1, Hx Diabetes Mellitus Type 2, Hx Hyperthyroidism, Hx Hypothyroidism Renal/ Medical History: Denies: Hx Peritoneal Dialysis GI Medical History: Denies: Hx Cirrhosis, Hx Crohn's Disease, Hx Hepatitis, Hx Ulcerative Colitis Musculoskeletal Medical History: Denies Hx Arthritis, Denies Hx Fibromyalgia, Denies Hx Gout Skin Medical History: Denies Hx Eczema, Denies Hx Psoriasis Psychiatric Medical History: Reports: Hx Depression Traumatic Medical History: Reports: Hx Traumatic Brain Injury Infectious Medical History: Denies: Hx C-Diff, Hx Hepatitis Past Surgical History: Reports: Hx Hysterectomy - Immunizations Hx Diphtheria, Pertussis, Tetanus Vaccination: Yes Review of Systems - Review of Systems Constitutional: See HPI EENT: No symptoms reported Cardiovascular: See HPI Respiratory: See HPI Gastrointestinal: No symptoms reported Genitourinary: No symptoms reported Female Genitourinary: No symptoms reported Musculoskeletal: No symptoms reported Skin: No symptoms reported Hematologic/Lymphatic: No symptoms reported Neurological/Psychological: No symptoms reported Physical Exam - Vital signs Vitals: Pulse Ox 87 L 05/25/19 19:58 - Notes Notes: GENERAL: Alert, interacts well. No acute distress. HEAD: Normocephalic, atraumatic. EYES: Pupils equal, round, and reactive to light. Extraocular movements intact. ENT: Oral mucosa moist, tongue midline. Oropharynx unremarkable. Airway patent. LUNGS: Decreased breath sounds bilaterally, expiratory wheezes, occasional cough. Borderline tachypnea. No severe distress. HEART: Regular rate and rhythm. No murmur ABDOMEN: Soft, non-tender. Non-distended. Bowel sounds present in all 4 quadrants. GENITOURINARY: Deferred EXTREMITIES: Moves all 4 extremities spontaneously. No edema, normal radial and dorsalis pedis pulses bilaterally. No cyanosis. BACK: no cervical, thoracic, lumbar midline tenderness. No saddle anesthesia, normal distal neurovascular exam. Moves all extremities in full range of motion. NEUROLOGICAL: Alert and oriented x3. Normal speech. Cranial nerves II through XII grossly intact. PSYCH: Normal affect, normal mood. SKIN: Warm, dry, normal turgor. No rashes or lesions noted. Course - Re-evaluation Re-evalutation: On initial evaluation patient with mild tachypnea but she is still speaking in full sentences. She has decreased breath sounds, expiratory wheezes. She is hypoxic in the upper 80s on her nasal cannula which she is on chronically. She is also hypertensive in the 170s systolic. We were getting an ABG when patient started having more tachypnea, despite DuoNeb and Solu-Medrol she started becoming more hypoxic, she was then placed on BiPAP. After this her tachypnea resolved, hypoxia resolved, she has no current complaints other than feeling restless, asking for Xanax (which she takes regularly) and was given Ativan instead. Patient has been given nitroglycerin paste and her blood pressure is improving as well. Chest x-ray does show pulmonary vascular congestion, BNP is not extremely elevated. CBC unremarkable. ABG is concerning with very low PO2 even more than her chronic respiratory failure. This was performed before she was on BiPAP. On reevaluation on BiPAP patient is still significantly improved and has improved blood pressure, no signs of respiratory distress. 05/25/19 22:[address] Hoover, on-call for Dr. Latif patient's primary provider, he accepts patient to [facility] full admission. He states the patient is to be placed under Dr. Latif's name. Patient states appreciation and agreement with plan. - Vital Signs Vital signs: Temp Pulse Resp BP Pulse Ox 97.9 F 87 25 H 133/60 H 97 05/26/19 03:53 05/26/19 03:53 05/26/19 04:08 05/26/19 03:53 05/26/19 03:53 - Laboratory Result Diagrams: 05/25/19 20:30 05/26/19 05:04 Laboratory results interpreted by me: 05/25/19 05/25/19 05/25/19 20:30 20:30 20:30 RBC 2.95 L Hgb 9.4 L Hct 28.3 L RDW 14.4 H Lymph % (Auto) 8.5 L Seg Neutrophils % 79.2 H Carbonic Acid ABG pH ABG pCO2 ABG pO2 ABG HCO3 ABG Total CO2 ABG O2 Saturation Chloride 92 L Carbon Dioxide 39 H Est GFR (MDRD) Non-Af 52 L NT-Pro-B Natriuret Pep 2630 H Urine Urobilinogen 05/25/19 05/25/19 20:55 21:45 RBC Hgb Hct RDW Lymph % (Auto) Seg Neutrophils % Carbonic Acid 1.67 H ABG pH 7.46 H ABG pCO2 55.5 H ABG pO2 34.5 L* ABG HCO3 38.9 H ABG Total CO2 40.6 H ABG O2 Saturation 68.1 L Chloride Carbon Dioxide Est GFR (MDRD) Non-Af NT-Pro-B Natriuret Pep Urine Urobilinogen 4.0 H Critical Care Note - Critical Care Note Total time excluding time spent on procedures (mins): 35 - COPD exacerbation, CHF exacerbation, hypoxia, respiratory failure Comments: Please allow 35 minutes of which required time for evaluation and management of patient with acute on chronic respiratory failure, COPD exacerbation, CHF exacerbation. Interventions including nitroglycerin, duo nebs, steroids, and BiPAP therapy. Multiple re-evaluations performed. Consultation and admission to the IMCU performed. Discharge - Discharge Clinical Impression: Pulmonary vascular congestion, Wheezing, COPD exacerbation, Shortness of breath Condition: Stable Disposition: ADMITTED INPATIENT Admitting Provider: Latif Unit Admitted: IMCU
[2019-05-25 20:55] LABS: ABSOLUTE EOSINOPHILS # (AUTO) 0.3 10^3/uL (0.0-0.6); ABSOLUTE LYMPHOCYTES (AUTO) 0.7 10^3/uL (0.5-4.7); ABSOLUTE MONOCYTES (AUTO) 0.7 10^3/uL (0.1-1.4); ABSOLUTE NEUT (AUTO) 6.8 10^3/uL (1.7-8.2); BASOPHILS % (AUTO) 0.6 % (0-2); EOSINOPHILS % (AUTO) 3.8 % (0-6); HEMATOCRIT 28.3 % (36.0-47.0); HEMOGLOBIN 9.4 g/dL (12.0-15.5); LYMPHOCYTES % (AUTO) 8.5 % (13-45); MEAN CORPUSCULAR HEMOGLOBIN 31.9 pg (27.0-33.4); MEAN CORPUSCULAR HGB CONC 33.3 g/dL (32.0-36.0); MEAN CORPUSCULAR VOLUME 96 fl (80-97); MONOCYTES % (AUTO) 7.9 % (3-13); PLATELET COUNT 334 10^3/uL (150-450); RED BLOOD COUNT 2.95 10^6/uL (3.72-5.28); RED CELL DISTRIBUTION WIDTH 14.4 % (11.5-14.0); SEGMENTED NEUTROPHILS % (AUTO) 79.2 % (42-78); TOTAL CELLS COUNTED % (AUTO) 100 %; WHITE BLOOD COUNT 8.6 10^3/uL (4.0-10.5)
[2019-05-25 21:04] LABS: ALBUMIN 3.5 g/dL (3.5-5.0); ALKALINE PHOSPHATASE 75 U/L (38-126); ASPARTATE AMINO TRANSFERASE 20 U/L (14-36); BILIRUBIN,DIRECT 0.3 mg/dL (0.0-0.4); BILIRUBIN,TOTAL 0.6 mg/dL (0.2-1.3); BLOOD UREA NITROGEN 8 mg/dL (7-20); CALCIUM 9.6 mg/dL (8.4-10.2); CHLORIDE 92 mmol/L (98-107); GLUCOSE 101 mg/dL (75-110); POTASSIUM 4.2 mmol/L (3.6-5.0); TOTAL PROTEIN 6.8 g/dL (6.3-8.2)
[2019-05-25 21:11] LABS: ANION GAP 7 (5-19)
[2019-05-25 21:12] LABS: CARBON DIOXIDE 39 mmol/L (22-30)
[2019-05-25 21:16] LABS: APPEARANCE,URINE CLEAR; BILIRUBIN,URINE NEGATIVE (NEGATIVE); COLOR,URINE YELLOW; GLUCOSE, URINE NEGATIVE (NEGATIVE); KETONES,URINE NEGATIVE (NEGATIVE); LEUKOCYTE ESTERASE,URINE NEGATIVE (NEGATIVE); NITRITE,URINE NEGATIVE (NEGATIVE); PROTEIN,URINE NEGATIVE (NEGATIVE); URINE SPECIFIC GRAVITY 1.012
[2019-05-25 21:16] LABS: NT PRO BNP 2630 pg/mL (<125)
[2019-05-25 21:17] LABS: TROPONIN I < 0.012 ng/mL
--- NOTE | 2019-05-25 21:21 | RADIOLOGY REPORT (SQ) ---
EXAM DESCRIPTION: XR CHEST 1 VIEW COMPLETED DATE/TME: 05/25/2019 20:44 CLINICAL INDICATION: 63-year-old female with shortness of breath. TECHNIQUE: Single view, AP portable chest was obtained. COMPARISON: 05/05/2019. FINDINGS: Stable enlarged cardiac and mediastinal silhouette. Heart size is mildly enlarged. Diffuse interstitial prominence raising the concern for pulmonary vascular congestion, edema. Lungs are otherwise clear without focal opacity, pneumothorax or large pleural effusions. However trace pleural effusion cannot be excluded. The visualized bones are within normal limits. IMPRESSION: Mild cardiomegaly and diffuse interstitial prominence raising the concern for pulmonary vascular congestion/edema.
[2019-05-25] MEDS ORDERED: NITROGLYCERIN 2% OINTMENT 1 GM PACKET TP ONE (21:46)
[2019-05-25 22:03] LABS: ARTERIAL BLOOD BASE EXCESS 13.4 mmol/L; ARTERIAL BLOOD FIO2 2L; ARTERIAL BLOOD H2CO3 1.67 mmol/L (1.05-1.35); ARTERIAL BLOOD HCO3 38.9 mmol/L (20-24); ARTERIAL BLOOD O2 SATURATION 68.1 % (94-98); ARTERIAL BLOOD PCO2 55.5 mmHg (35-45); ARTERIAL BLOOD PH 7.46 (7.35-7.45); ARTERIAL BLOOD TOTAL CO2 40.6 mmol/L (21-25)
[2019-05-25 22:06] LABS: ARTERIAL BLOOD PO2 34.5 mmHg (80-100)
[2019-05-25] MEDS ORDERED: LORAZEPAM INJ 2 MG/1 ML VIAL IV ONE (22:25)
--- NOTE | 2019-05-26 00:52 | EKG REPORT ---
SEVERITY:- BORDERLINE ECG - SINUS RHYTHM BORDERLINE RIGHT AXIS DEVIATION BORDERLINE T WAVE ABNORMALITIES : Confirmed by: Yi Grover MD 26-May-2019 00:52:22
[2019-05-26] MEDS ORDERED: IPRATROPIUM/ALBUTEROL 0.5-2.5 MG/3 ML AMPUL NEB PRN (02:08)
[2019-05-26] MEDS ORDERED: METHYLPREDNISOLONE INJ 125 MG/2 ML SDV IV ONE (03:15)
[2019-05-26] MEDS ORDERED: METHYLPREDNISOLONE INJ 125 MG/2 ML SDV ONE (05:51)
[2019-05-26] MEDS: BUSPIRONE HCL 10 MG TABLET PO SCH ×3 (05:52→22:09)
[2019-05-26 06:12] LABS: BLOOD UREA NITROGEN 10 mg/dL (7-20); CALCIUM 9.8 mg/dL (8.4-10.2); CHLORIDE 93 mmol/L (98-107); GLUCOSE 176 mg/dL (75-110); POTASSIUM 4.9 mmol/L (3.6-5.0)
[2019-05-26 06:18] LABS: ANION GAP 8 (5-19); CARBON DIOXIDE 39 mmol/L (22-30)
[2019-05-26] MEDS: BUDESONIDE NEB 0.5 MG/2 ML AMPUL NEB SCH ×2 (08:05→20:33)
[2019-05-26 09:42] LABS: ARTERIAL BLOOD BASE EXCESS 11.6 mmol/L; ARTERIAL BLOOD H2CO3 2.08 mmol/L (1.05-1.35); ARTERIAL BLOOD HCO3 39.3 mmol/L (20-24); ARTERIAL BLOOD O2 SATURATION 80.6 % (94-98); ARTERIAL BLOOD PH 7.37 (7.35-7.45); ARTERIAL BLOOD PO2 47.6 mmHg (80-100); ARTERIAL BLOOD TOTAL CO2 41.4 mmol/L (21-25)
[2019-05-26 09:43] LABS: ARTERIAL BLOOD FIO2 2L
[2019-05-26 09:45] LABS: ARTERIAL BLOOD PCO2 69.2 mmHg (35-45)
[2019-05-26] MEDS ORDERED: FUROSEMIDE INJ/PF 20 MG/2 ML SDV IV SCH (10:00)
[2019-05-26] MEDS ORDERED: ALPRAZOLAM 0.25 MG TABLET PO SCH (10:00)
[2019-05-26] MEDS: DIGOXIN 0.25 MG TABLET PO SCH (10:16)
[2019-05-26] MEDS: METHYLPREDNISOLONE INJ 40 MG/1 ML SDV IV SCH ×2 (10:16→22:10)
[2019-05-26] MEDS: ESCITALOPRAM OXALATE 10 MG TABLET PO SCH (10:16)
[2019-05-26] MEDS: ALPRAZOLAM 0.5 MG TABLET PO SCH ×2 (10:16→22:09)
[2019-05-26] MEDS: CARVEDILOL 6.25 MG TABLET PO SCH ×2 (10:16→22:10)
[2019-05-26] MEDS: DOCUSATE SODIUM 100 MG CAPSULE PO SCH ×2 (10:22→22:18)
[2019-05-26] MEDS: FLUTICASONE/UMECLIDIN/VILANTER 100-62.5-25 MCG/DOSE IH SCH (10:22)
--- NOTE | 2019-05-26 11:12 | PDOC H&P ---
History of Present Illness Admission Date/PCP: 05/25/19 22:47 DANIAL HALL MD Patient complains of: Shortness of the breath History of Present Illness: CECILE BERRIOS is a 63 year old female This is a 63-year-old female's with history of the chronic respiratory failure severe pulmonary hypertension's congestive heart failure COPD currently on oxygen dependent 3 to 4 L and also trilogy machine several hospital admissions since last 3 months in and out most likely due to the noncompliance recently discharged home with a trilogy machine and oxygen came to the emergency department with the oxygen level was very lowAnd patient's oxygen level goes to up to 60% and patients brought to the emergency departments will put on the BiPAP and oxygen and patient is feeling so much better Patient's claim that she does not use the trilogy much since day before but use last night so again the patient is very noncompliance with not using the machines properly even the patient have a several days in the hospital was to teach how to use it and give her several instructions myself Dr. Moore Patient's currently denied any chest pain no short of breath patient's chest x- ray suggesting pulmonary vascular congestions given some IV Lasix patient's ABG on pH is 7.37 Past Medical History Cardiac Medical History: Reports: Congestive Heart Failure, Hypertension Denies: Atrial Fibrillation, Coronary Artery Disease, DVT, Myocardial Infarction, Pulmonary Embolism Pulmonary Medical History: Reports: Bronchitis, Chronic Obstructive Pulmonary Disease (COPD), Respiratory Failure Neurological Medical History: Denies: Seizures Endocrine Medical History: Denies: Diabetes Mellitus Type 1, Diabetes Mellitus Type 2, Hyperthyroidism, Hypothyroidism GI Medical History: Denies: Cirrhosis, Crohn's Disease, Hepatitis, Ulcerative Colitis Musculoskeltal Medical History: Denies: Arthritis, Fibromyalgia, Gout Skin Medical History: Denies: Eczema, Psoriasis Psychiatric Medical History: Reports: Depression Traumatic Medical History: Reports: Traumatic Brain Injury Hematology: Denies: Anemia, Sickle Cell Disease, Bleeding Tendencies Infectious Medical History: Denies: Clostridium Difficile Past Surgical History Past Surgical History: Reports: Hysterectomy Social History Information Source: Patient Lives with: Family Smoking Status: Former Smoker Electronic Cigarette use?: No Frequency of Alcohol Use: Rare Hx Recreational Drug Use: No Drugs: None Hx Prescription Drug Abuse: No Family History Family History: COPD, DM, Hypertension, Malignancy. denies: Arthritis, CAD, CVA, Hyperlipidemia, Thyroid Disfunction Parental Family History Reviewed: Yes Children Family History Reviewed: Yes Sibling(s) Family History Reviewed.: Yes Medication/Allergy Home Medications: Carvedilol [Coreg 6.25 mg Tablet] 6.25 mg PO Q12 tablet 04/02/19 Digoxin [Lanoxin 0.25 mg Tablet] 0.25 mg PO DAILY tablet 04/02/19 Docusate Sodium [Colace 100 mg Capsule] 100 mg PO Q12 capsule 04/02/19 Fluticasone/Umeclidin/Vilanter [Trelegy 100-62.5-25 Mcg Ellipta 14 Dose/Dpi] 1 inh IH DAILY inhaler 04/02/19 Furosemide [Lasix 20 mg Tablet] 20 mg PO DAILY tablet 04/02/19 Escitalopram Oxalate [Lexapro 10 mg Tablet] 5 mg PO DAILY 05/05/19 Budesonide [Pulmicort Neb 0.5 mg/2 ml Ampul] 0.5 mg NEB RTQ12 #60 ampul.neb 05/15/19 Buspirone HCl [Buspar 10 mg Tablet] 5 mg PO Q8 #90 tablet 05/15/19 Sildenafil Citrate [Revatio 20 mg Tablet] 20 mg PO MEALS #30 tablet 05/15/19 Albuterol Sulfate [Ventolin 0.083% Neb 2.5 mg/3 ml Ampul] 1 vial NEB Q6HP PRN 05/26/19 Alprazolam [Xanax 0.5 mg Tablet] 0.5 mg PO Q12HP PRN 05/26/19 Allergies/Adverse Reactions: No Known Allergies Allergy (Verified 01/18/18 18:24) Review of Systems Constitutional: ABSENT: chills, fever(s), headache(s), weight gain, weight loss Eyes: ABSENT: visual disturbances Ears: ABSENT: hearing changes Cardiovascular: PRESENT: dyspnea on exertion. ABSENT: chest pain, edema, orthropnea, palpitations Respiratory: PRESENT: dyspnea. ABSENT: cough, hemoptysis Gastrointestinal: ABSENT: abdominal pain, constipation, diarrhea, hematemesis, hematochezia, nausea, vomiting Genitourinary: ABSENT: dysuria, hematuria Musculoskeletal: ABSENT: joint swelling Integumentary: ABSENT: rash, wounds Neurological: ABSENT: abnormal gait, abnormal speech, confusion, dizziness, focal weakness, syncope Psychiatric: ABSENT: anxiety, depression, homidical ideation, suicidal ideation Endocrine: ABSENT: cold intolerance, heat intolerance, menstrual abnormalities, polydipsia, polyuria Hematologic/Lymphatic: ABSENT: easy bleeding, easy bruising, lymphadenopathy Physical Exam Vital Signs: Temp Pulse Resp BP Pulse Ox 97.8 F 98 16 140/80 H 90 L 05/26/19 08:24 05/26/19 08:24 05/26/19 08:24 05/26/19 08:24 05/26/19 08:24 Intake & Output 05/25/19 05/26/19 05/27/19 06:59 06:59 06:59 Intake Total 444 Output Total 50 Balance 394 Weight 66.7 kg General appearance: PRESENT: no acute distress, well-developed, well-nourished Head exam: PRESENT: atraumatic, normocephalic Eye exam: PRESENT: conjunctiva pink, EOMI, PERRLA. ABSENT: scleral icterus Ear exam: PRESENT: normal external ear exam Mouth exam: PRESENT: moist, tongue midline Neck exam: PRESENT: full ROM. ABSENT: carotid bruit, JVD, lymphadenopathy, thyromegaly Respiratory exam: PRESENT: clear to auscultation bianca Cardiovascular exam: PRESENT: RRR. ABSENT: diastolic murmur, rubs, systolic murmur Pulses: PRESENT: normal dorsalis pedis pul, +2 pedal pulses bilateral Vascular exam: PRESENT: normal capillary refill GI/Abdominal exam: PRESENT: normal bowel sounds, soft. ABSENT: distended, guarding, mass, organolmegaly, rebound, tenderness Rectal exam: PRESENT: deferred Neurological exam: PRESENT: alert, awake, oriented to person, oriented to place, oriented to time, oriented to situation, CN II-XII grossly intact. ABSENT: motor sensory deficit Psychiatric exam: PRESENT: appropriate affect, normal mood. ABSENT: homicidal ideation, suicidal ideation Skin exam: PRESENT: dry, intact, warm. ABSENT: cyanosis, rash Results Laboratory Results: 05/25/19 20:30 05/26/19 05:04 05/25/19 05/25/19 05/25/19 20:30 20:30 20:55 WBC 8.6 RBC 2.95 L Hgb 9.4 L Hct 28.3 L MCV 96 MCH 31.9 MCHC 33.3 RDW 14.4 H Plt Count 334 Seg Neutrophils % 79.2 H Carbonic Acid HCO3/H2CO3 Ratio ABG pH ABG pCO2 ABG pO2 ABG HCO3 ABG O2 Saturation ABG Base Excess FiO2 Sodium 137.7 Potassium 4.2 Chloride 92 L Carbon Dioxide 39 H Anion Gap 7 BUN 8 Creatinine 1.08 Est GFR ( Amer) > 60 Glucose 101 Calcium 9.6 Total Bilirubin 0.6 AST 20 Alkaline Phosphatase 75 Total Protein 6.8 Albumin 3.5 Urine Color YELLOW Urine Appearance CLEAR Urine pH 7.0 Ur Specific Morral 1.012 Urine Protein NEGATIVE Urine Glucose (UA) NEGATIVE Urine Ketones NEGATIVE Urine Blood NEGATIVE Urine Nitrite NEGATIVE Ur Leukocyte Esterase NEGATIVE Urine WBC (Auto) 0 Urine RBC (Auto) 2 05/25/19 05/26/19 05/26/19 21:45 05:04 09:30 WBC RBC Hgb Hct MCV MCH MCHC RDW Plt Count Seg Neutrophils % Carbonic Acid 1.67 H 2.08 H HCO3/H2CO3 Ratio 23:1 18:1 ABG pH 7.46 H 7.37 ABG pCO2 55.5 H 69.2 H* ABG pO2 34.5 L* 47.6 L ABG HCO3 38.9 H 39.3 H ABG O2 Saturation 68.1 L 80.6 L ABG Base Excess 13.4 11.6 FiO2 2L 2L Sodium 140.0 Potassium 4.9 Chloride 93 L Carbon Dioxide 39 H Anion Gap 8 BUN 10 Creatinine 1.13 Est GFR ( Amer) 59 L Glucose 176 H Calcium 9.8 Total Bilirubin AST Alkaline Phosphatase Total Protein Albumin Urine Color Urine Appearance Urine pH Ur Specific Morral Urine Protein Urine Glucose (UA) Urine Ketones Urine Blood Urine Nitrite Ur Leukocyte Esterase Urine WBC (Auto) Urine RBC (Auto) 05/25/19 20:30 Troponin I < 0.012 NT-Pro-B Natriuret Pep 2630 H Impressions: Chest X-Ray 05/25/19 20:44 IMPRESSION: Mild cardiomegaly and diffuse interstitial prominence raising the concern for pulmonary vascular congestion/edema. Assessment & Plan - Diagnosis (1) Pulmonary vascular congestion Is this a current diagnosis for this admission?: Yes Plan: Most likely due to the pulmonary hypertension's we will give her IV Lasix Consult the Dr. Willams talent assistant to possible do a right-sided heart cardiac cath (2) Shortness of breath Is this a current diagnosis for this admission?: Yes Plan: Medical noncompliance blood chronic respiratory failure severe pulmonary hypertension's currently getting better (3) Acute on chronic congestive heart failure Qualifiers: Heart failure type: right-sided Qualified Code(s): I50.813 - Acute on chronic right heart failure Is this a current diagnosis for this admission?: Yes Plan: Continues the IV Lasix (4) Acute on chronic respiratory failure with hypoxia and hypercapnia Is this a current diagnosis for this admission?: Yes Plan: Continues to BiPAP (5) Anxiety and depression Is this a current diagnosis for this admission?: Yes Plan: Continues to current medications (6) Moderate to severe pulmonary hypertension Is this a current diagnosis for this admission?: Yes Plan: Continues to monitor's will possible try to get the right-sided cardiac cath (7) Noncompliance Is this a current diagnosis for this admission?: Yes - Time Time Spent: 30 to 50 Minutes Medications reviewed and adjusted accordingly: Yes Anticipated discharge: Home with Homehealth Within: Other - Inpatient Certification Based on my medical assessment, after consideration of the patient's comorbidities, presenting symptoms, or acuity I expect that the services needed warrant INPATIENT care.: Yes I certify that my determination is in accordance with my understanding of Medicare's requirements for reasonable and necessary INPATIENT services [42 CFR 412.3e].: Yes Medical Necessity: Significant Comorbidiites Make Outpatient Treatment Too Risky, Need Close Monitoring Due to Risk of Patient Decompensation, Need For Continuous Telemetry Monitoring, Need for Nebulizer Therapy and Monitoring of Response Post Hospital Care: D/C Service Officer Documentation - Plan Summary Plan Summary: Admit the patient's consult the senior production planner for possible pulmonary rehab while patient have repeated hospital admissions We will consult the cardiology and pulmonary
[2019-05-26] MEDS ORDERED: SILDENAFIL CITRATE 20 MG TABLET PO SCH (12:00)
[2019-05-26] MEDS ORDERED: METHYLPREDNISOLONE INJ 125 MG/2 ML SDV IV SCH ×2 (12:00→14:00)
[2019-05-26] MEDS: SILDENAFIL CITRATE 20 MG TABLET PO SCH ×2 (14:06→17:37)
[2019-05-26] MEDS: FUROSEMIDE INJ/PF 20 MG/2 ML SDV IV SCH (22:10)
[2019-05-27] MEDS: BUSPIRONE HCL 10 MG TABLET PO SCH ×3 (05:42→22:23)
[2019-05-27 06:28] LABS: HEMATOCRIT 27.8 % (36.0-47.0); HEMOGLOBIN 9.3 g/dL (12.0-15.5); MEAN CORPUSCULAR HEMOGLOBIN 31.4 pg (27.0-33.4); MEAN CORPUSCULAR HGB CONC 33.6 g/dL (32.0-36.0); MEAN CORPUSCULAR VOLUME 94 fl (80-97); PLATELET COUNT 351 10^3/uL (150-450); RED BLOOD COUNT 2.97 10^6/uL (3.72-5.28); RED CELL DISTRIBUTION WIDTH 14.3 % (11.5-14.0); WHITE BLOOD COUNT 10.9 10^3/uL (4.0-10.5)
[2019-05-27 06:43] LABS: BLOOD UREA NITROGEN 23 mg/dL (7-20); CALCIUM 9.6 mg/dL (8.4-10.2); CHLORIDE 91 mmol/L (98-107); GLUCOSE 119 mg/dL (75-110)
[2019-05-27 06:51] LABS: ANION GAP 9 (5-19); CARBON DIOXIDE 39 mmol/L (22-30)
[2019-05-27 06:56] LABS: POTASSIUM 4.4 mmol/L (3.6-5.0)
[2019-05-27 07:09] LABS: ABSOLUTE LYMPHOCYTES# (MANUAL) 0.7 10^3/uL (0.5-4.7); ABSOLUTE MONOCYTES # (MANUAL) 0.3 10^3/uL (0.1-1.4); BASOPHILS % (MANUAL) 0 % (0-2); EOSINOPHILS % (MANUAL) 0 % (0-6); LYMPHOCYTES % (MANUAL) 6 % (13-45); MONOCYTES % (MANUAL) 3 % (3-13); SEGMENTED NEUTROPHILS % (MAN) 91 % (42-78); TOTAL CELLS COUNTED 100
[2019-05-27 07:15] LABS: ANISOCYTOSIS SLIGHT
[2019-05-27 07:16] LABS: STOMATOCYTES SLIGHT
[2019-05-27 07:17] LABS: PLATELET COMMENT ADEQUATE; TEAR DROP CELLS SLIGHT
[2019-05-27] MEDS: BUDESONIDE NEB 0.5 MG/2 ML AMPUL NEB SCH ×2 (08:33→20:46)
[2019-05-27] MEDS: CARVEDILOL 6.25 MG TABLET PO SCH ×2 (10:08→22:23)
[2019-05-27] MEDS: DOCUSATE SODIUM 100 MG CAPSULE PO SCH ×2 (10:08→22:23)
[2019-05-27] MEDS: ESCITALOPRAM OXALATE 10 MG TABLET PO SCH (10:08)
[2019-05-27] MEDS: FUROSEMIDE INJ/PF 20 MG/2 ML SDV IV SCH (10:08)
[2019-05-27] MEDS: ENOXAPARIN SODIUM INJ 40 MG/0.4 ML DISP.SYRIN SUBCUT SCH (10:09)
[2019-05-27] MEDS: DIGOXIN 0.25 MG TABLET PO SCH (10:09)
[2019-05-27] MEDS: SILDENAFIL CITRATE 20 MG TABLET PO SCH ×3 (10:09→18:42)
[2019-05-27] MEDS: METHYLPREDNISOLONE INJ 40 MG/1 ML SDV IV SCH ×2 (10:09→22:23)
[2019-05-27] MEDS: FLUTICASONE/UMECLIDIN/VILANTER 100-62.5-25 MCG/DOSE IH SCH (10:09)
[2019-05-27] MEDS: ALPRAZOLAM 0.5 MG TABLET PO SCH ×2 (10:09→22:23)
[2019-05-27 11:40] LABS: ARTERIAL BLOOD BASE EXCESS 17.4 mmol/L; ARTERIAL BLOOD H2CO3 2.48 mmol/L (1.05-1.35); ARTERIAL BLOOD HCO3 47.2 mmol/L (20-24); ARTERIAL BLOOD O2 SATURATION 92.9 % (94-98); ARTERIAL BLOOD PH 7.38 (7.35-7.45); ARTERIAL BLOOD PO2 70.7 mmHg (80-100); ARTERIAL BLOOD TOTAL CO2 49.7 mmol/L (21-25)
[2019-05-27 11:43] LABS: ARTERIAL BLOOD FIO2 35%
[2019-05-27 11:44] LABS: ARTERIAL BLOOD PCO2 82.3 mmHg (35-45)
--- NOTE | 2019-05-27 12:57 | PDOC PROGRESS REPORT ---
Subjective Progress Note for:: 05/27/19 Subjective:: Patient is currently doing well denied any chest pain no short of breath Discussed with the cardiology Dr. Willams and suggest continues to current medications continues the low-dose Lasix but no need for any catheter right now I will schedule his outpatient Reason For Visit: RESPIRATORY FAILURE,SHORTNESS OF BREATH Physical Exam Vital Signs: Temp Pulse Resp BP Pulse Ox 97.4 F 80 21 H 126/63 H 93 05/27/19 08:21 05/27/19 08:34 05/27/19 10:32 05/27/19 08:21 05/27/19 10:32 Intake & Output 05/26/19 05/27/19 05/28/19 06:59 06:59 06:59 Intake Total 444 1230 Output Total 50 1200 Balance 394 30 Weight 66.7 kg 65.5 kg General appearance: PRESENT: no acute distress, well-developed, well-nourished Head exam: PRESENT: atraumatic, normocephalic Eye exam: PRESENT: conjunctiva pink, EOMI, PERRLA. ABSENT: scleral icterus Ear exam: PRESENT: normal external ear exam Mouth exam: PRESENT: moist, tongue midline Neck exam: PRESENT: full ROM. ABSENT: carotid bruit, JVD, lymphadenopathy, thyromegaly Respiratory exam: PRESENT: clear to auscultation bianca Cardiovascular exam: PRESENT: RRR. ABSENT: diastolic murmur, rubs, systolic murmur Pulses: PRESENT: normal dorsalis pedis pul, +2 pedal pulses bilateral Vascular exam: PRESENT: normal capillary refill GI/Abdominal exam: PRESENT: normal bowel sounds, soft. ABSENT: distended, guarding, mass, organolmegaly, rebound, tenderness Rectal exam: PRESENT: deferred Neurological exam: PRESENT: alert, awake, oriented to person, oriented to place, oriented to time, oriented to situation, CN II-XII grossly intact. ABSENT: motor sensory deficit Psychiatric exam: PRESENT: appropriate affect, normal mood. ABSENT: homicidal ideation, suicidal ideation Skin exam: PRESENT: dry, intact, warm. ABSENT: cyanosis, rash Results Laboratory Results: 05/27/19 05:03 05/27/19 05:03 05/27/19 05/27/19 05/27/19 05:03 05:03 11:24 WBC 10.9 H RBC 2.97 L Hgb 9.3 L Hct 27.8 L MCV 94 MCH 31.4 MCHC 33.6 RDW 14.3 H Plt Count 351 Seg Neutrophils % Not Reportable Carbonic Acid 2.48 H HCO3/H2CO3 Ratio 19:1 ABG pH 7.38 ABG pCO2 82.3 H* ABG pO2 70.7 L ABG HCO3 47.2 H ABG O2 Saturation 92.9 L ABG Base Excess 17.4 FiO2 35% Sodium 139.3 Potassium 4.4 Chloride 91 L Carbon Dioxide 39 H Anion Gap 9 BUN 23 H Creatinine 1.17 Est GFR ( Amer) 57 L Glucose 119 H Calcium 9.6 05/25/19 20:30 Troponin I < 0.012 NT-Pro-B Natriuret Pep 2630 H Impressions: Chest X-Ray 05/25/19 20:44 IMPRESSION: Mild cardiomegaly and diffuse interstitial prominence raising the concern for pulmonary vascular congestion/edema. Assessment & Plan - Diagnosis (1) Pulmonary vascular congestion Is this a current diagnosis for this admission?: Yes Plan: Currently all resolved (2) Shortness of breath Is this a current diagnosis for this admission?: Yes (3) Acute on chronic congestive heart failure Qualifiers: Heart failure type: right-sided Qualified Code(s): I50.813 - Acute on chronic right heart failure Is this a current diagnosis for this admission?: Yes (4) Acute on chronic respiratory failure with hypoxia and hypercapnia Is this a current diagnosis for this admission?: Yes (5) Anxiety and depression Is this a current diagnosis for this admission?: Yes (6) Moderate to severe pulmonary hypertension Is this a current diagnosis for this admission?: Yes (7) Noncompliance Is this a current diagnosis for this admission?: Yes - Time Time Spent with patient: 15-24 minutes Level of Care: IMCU Medications reviewed and adjusted accordingly: Yes Anticipated discharge: Home Within: Other - Plan Summary Plan Summary: Continues to use the BiPAP Rest the current medications I think patients get a benefit to go to the rehab facility where the pulmonary things are available's we will also traffic and transport planner
--- NOTE | 2019-05-27 15:26 | PDOC CONSULTATION ---
Consultation Consult Date: 05/27/19 Provider Consulted: GILSON SOLIS Consult reason:: Pulmonary hypertension History of Present Illness Admission Date/PCP: 05/25/19 22:47 DANIAL HALL MD Patient complains of: Dyspnea and desaturation. History of Present Illness: CECILE BERRIOS is a 63 year old female 1. COPD 2. CHF 3. Systemic hypertension 4. Nicotine dependence in remission Patient was admitted to the hospital again with complaints of dyspnea and possibly desaturating at home. Presently she does not report any dyspnea or chest pain. She does not have edema and ascites is also not reported. She is no deformity hypertension which is probably reactive to underlying COPD with mildly reduced RV function by echocardiogram. Her medical regimen consists of medications for systemic hypertension including carvedilol as well as phosphodiesterase inhibitor. She presently does not smoke cigarettes. Past Medical History Cardiac Medical History: Reports: Congestive Heart Failure, Hypertension Denies: Atrial Fibrillation, Coronary Artery Disease, DVT, Myocardial Infarction, Pulmonary Embolism Pulmonary Medical History: Reports: Bronchitis, Chronic Obstructive Pulmonary Disease (COPD), Respiratory Failure Neurological Medical History: Denies: Seizures Endocrine Medical History: Denies: Diabetes Mellitus Type 1, Diabetes Mellitus Type 2, Hyperthyroidism, Hypothyroidism GI Medical History: Denies: Cirrhosis, Crohn's Disease, Hepatitis, Ulcerative Colitis Musculoskeltal Medical History: Denies: Arthritis, Fibromyalgia, Gout Skin Medical History: Denies: Eczema, Psoriasis Psychiatric Medical History: Reports: Depression Traumatic Medical History: Reports: Traumatic Brain Injury Hematology: Denies: Anemia, Sickle Cell Disease, Bleeding Tendencies Infectious Medical History: Denies: Clostridium Difficile Past Surgical History Past Surgical History: Reports: Hysterectomy Social History Lives with: Family Smoking Status: Former Smoker Electronic Cigarette use?: No Frequency of Alcohol Use: Rare Hx Recreational Drug Use: No Drugs: None Hx Prescription Drug Abuse: No Family History Family History: COPD, DM, Hypertension, Malignancy. denies: Arthritis, CAD, CVA, Hyperlipidemia, Thyroid Disfunction Parental Family History Reviewed: No - No familial illnesses Children Family History Reviewed: NA Sibling(s) Family History Reviewed.: NA Medication/Allergy Home Medications: Carvedilol [Coreg 6.25 mg Tablet] 6.25 mg PO Q12 tablet 04/02/19 Digoxin [Lanoxin 0.25 mg Tablet] 0.25 mg PO DAILY tablet 04/02/19 Docusate Sodium [Colace 100 mg Capsule] 100 mg PO Q12 capsule 04/02/19 Fluticasone/Umeclidin/Vilanter [Trelegy 100-62.5-25 Mcg Ellipta 14 Dose/Dpi] 1 inh IH DAILY inhaler 04/02/19 Furosemide [Lasix 20 mg Tablet] 20 mg PO DAILY tablet 04/02/19 Escitalopram Oxalate [Lexapro 10 mg Tablet] 5 mg PO DAILY 05/05/19 Budesonide [Pulmicort Neb 0.5 mg/2 ml Ampul] 0.5 mg NEB RTQ12 #60 ampul.neb 05/15/19 Buspirone HCl [Buspar 10 mg Tablet] 5 mg PO Q8 #90 tablet 05/15/19 Sildenafil Citrate [Revatio 20 mg Tablet] 20 mg PO MEALS #30 tablet 05/15/19 Albuterol Sulfate [Ventolin 0.083% Neb 2.5 mg/3 ml Ampul] 1 vial NEB Q6HP PRN 05/26/19 Alprazolam [Xanax 0.5 mg Tablet] 0.5 mg PO Q12HP PRN 05/26/19 Allergies/Adverse Reactions: No Known Allergies Allergy (Verified 01/18/18 18:24) Review of Systems Respiratory: PRESENT: as per HPI, dyspnea Physical Exam Vital Signs: Temp Pulse Resp BP Pulse Ox 97.4 F 89 24 H 115/64 95 05/27/19 12:07 05/27/19 14:00 05/27/19 13:15 05/27/19 12:07 05/27/19 13:15 Intake & Output 05/26/19 05/27/19 05/28/19 06:59 06:59 06:59 Intake Total 444 1230 920 Output Total 50 1200 Balance 394 30 920 Weight 66.7 kg 65.5 kg General appearance: PRESENT: no acute distress Head exam: PRESENT: atraumatic, normocephalic Eye exam: PRESENT: EOMI Mouth exam: PRESENT: dry mucosa Respiratory exam: PRESENT: decreased breath sounds, prolonged expiratory phas, symmetrical, unlabored Cardiovascular exam: PRESENT: RRR, +S1, +S2 Pulses: PRESENT: normal radial pulses GI/Abdominal exam: PRESENT: soft Rectal exam: PRESENT: deferred Musculoskeletal exam: PRESENT: normal inspection Neurological exam: PRESENT: alert, awake, oriented to person, oriented to place, oriented to time Psychiatric exam: PRESENT: appropriate affect Skin exam: PRESENT: dry, intact, normal color Results Laboratory Results: 05/27/19 05:03 05/27/19 05:03 05/27/19 05/27/19 05/27/19 05:03 05:03 11:24 WBC 10.9 H RBC 2.97 L Hgb 9.3 L Hct 27.8 L MCV 94 MCH 31.4 MCHC 33.6 RDW 14.3 H Plt Count 351 Seg Neutrophils % Not Reportable Carbonic Acid 2.48 H HCO3/H2CO3 Ratio 19:1 ABG pH 7.38 ABG pCO2 82.3 H* ABG pO2 70.7 L ABG HCO3 47.2 H ABG O2 Saturation 92.9 L ABG Base Excess 17.4 FiO2 35% Sodium 139.3 Potassium 4.4 Chloride 91 L Carbon Dioxide 39 H Anion Gap 9 BUN 23 H Creatinine 1.17 Est GFR ( Amer) 57 L Glucose 119 H Calcium 9.6 05/25/19 20:30 Troponin I < 0.012 NT-Pro-B Natriuret Pep 2630 H EKG Comments: Sinus rhythm and right axis deviation. EKG was reviewed independently by me. Impressions: Chest X-Ray 05/25/19 20:44 IMPRESSION: Mild cardiomegaly and diffuse interstitial prominence raising the concern for pulmonary vascular congestion/edema. Status: Image reviewed by me - Pulmonary vascular congestion Assessment & Plan - Diagnosis (1) COPD exacerbation Plan: Patient is not wheezing presently. Continue bronchodilator therapy Patient has to be maintained on supplemental oxygen (2) Pulmonary vascular congestion Is this a current diagnosis for this admission?: Yes Plan: Mild pulmonary vascular congestion is appreciated on chest x-ray. Clinically exam landin patient does not seem to be that congested. Agree with using diuretic orally at low dose. Patient does not have signs of cor pulmonale and RV failure such as ascites or peripheral edema that is significant. (3) Acute hypercapnic respiratory failure Plan: Patient is not presently in respiratory failure. She is breathing well and is not quite tachypneic.
--- NOTE | 2019-05-27 17:11 | RADIOLOGY REPORT (SQ) ---
EXAM DESCRIPTION: CHEST 2 VIEWS COMPLETED DATE/TIME: 05/27/2019 4:56 pm REASON FOR STUDY: copd COMPARISON: 02/23/2020 EXAM PARAMETERS: NUMBER OF VIEWS: two views TECHNIQUE: Digital Frontal and Lateral radiographic views of the chest acquired. RADIATION DOSE: NA LIMITATIONS: none FINDINGS: LUNGS AND PLEURA: No opacities, masses or pneumothorax. No pleural effusion. MEDIASTINUM AND HILAR STRUCTURES: No masses or contour abnormalities. HEART AND VASCULAR STRUCTURES: Heart normal size. No evidence for failure. BONES: No acute findings. HARDWARE: None in the chest. OTHER: No other significant finding. IMPRESSION: NO ACUTE RADIOGRAPHIC FINDING IN THE CHEST. TECHNICAL DOCUMENTATION: JOB ID: [id number] [employer]- All Rights Reserved Reading location - IP/workstation name: [email or web address]
[2019-05-28] MEDS: BUSPIRONE HCL 10 MG TABLET PO SCH ×3 (05:39→21:04)
[2019-05-28 05:58] LABS: BLOOD UREA NITROGEN 30 mg/dL (7-20); CALCIUM 9.2 mg/dL (8.4-10.2); CHLORIDE 92 mmol/L (98-107); GLUCOSE 96 mg/dL (75-110); POTASSIUM 4.5 mmol/L (3.6-5.0)
[2019-05-28 06:09] LABS: ANION GAP 3 (5-19)
[2019-05-28 06:10] LABS: CARBON DIOXIDE 44 mmol/L (22-30)
[2019-05-28] MEDS: SILDENAFIL CITRATE 20 MG TABLET PO SCH ×3 (08:28→18:34)
[2019-05-28] MEDS: BUDESONIDE NEB 0.5 MG/2 ML AMPUL NEB SCH ×2 (08:52→20:11)
--- NOTE | 2019-05-28 09:25 | PDOC PROGRESS REPORT ---
Subjective Progress Note for:: 05/28/19 Subjective:: Patient is currently doing well Seen by Dr. Moore and according to the patient he told the patient's maybe he can provide a different mask from his office Patient's is seen by the cardiology currently all stable Chest x-ray is all clear Reason For Visit: RESPIRATORY FAILURE,SHORTNESS OF BREATH Physical Exam Vital Signs: Temp Pulse Resp BP Pulse Ox 97.9 F 79 28 H 113/60 99 05/28/19 08:11 05/28/19 08:56 05/28/19 08:56 05/28/19 08:11 05/28/19 08:56 Intake & Output 05/27/19 05/28/19 05/29/19 06:59 06:59 06:59 Intake Total 1230 1160 Output Total 1200 200 Balance 30 960 Weight 65.5 kg 63.7 kg General appearance: PRESENT: no acute distress, well-developed, well-nourished Head exam: PRESENT: atraumatic, normocephalic Eye exam: PRESENT: conjunctiva pink, EOMI, PERRLA. ABSENT: scleral icterus Ear exam: PRESENT: normal external ear exam Mouth exam: PRESENT: moist, tongue midline Neck exam: PRESENT: full ROM. ABSENT: carotid bruit, JVD, lymphadenopathy, thyromegaly Respiratory exam: PRESENT: clear to auscultation bianca Cardiovascular exam: PRESENT: RRR. ABSENT: diastolic murmur, rubs, systolic murmur Pulses: PRESENT: normal dorsalis pedis pul, +2 pedal pulses bilateral Vascular exam: PRESENT: normal capillary refill GI/Abdominal exam: PRESENT: normal bowel sounds, soft. ABSENT: distended, guarding, mass, organolmegaly, rebound, tenderness Rectal exam: PRESENT: deferred Neurological exam: PRESENT: alert, awake, oriented to person, oriented to place, oriented to time, oriented to situation, CN II-XII grossly intact. ABSENT: motor sensory deficit Psychiatric exam: PRESENT: appropriate affect, normal mood. ABSENT: homicidal ideation, suicidal ideation Skin exam: PRESENT: dry, intact, warm. ABSENT: cyanosis, rash Results Laboratory Results: 05/27/19 05:03 05/28/19 04:42 05/27/19 05/28/19 11:24 04:42 Carbonic Acid 2.48 H HCO3/H2CO3 Ratio 19:1 ABG pH 7.38 ABG pCO2 82.3 H* ABG pO2 70.7 L ABG HCO3 47.2 H ABG O2 Saturation 92.9 L ABG Base Excess 17.4 FiO2 35% Sodium 139.0 Potassium 4.5 Chloride 92 L Carbon Dioxide 44 H* Anion Gap 3 L BUN 30 H Creatinine 1.22 Est GFR ( Amer) 54 L Glucose 96 Calcium 9.2 05/25/19 20:30 Troponin I < 0.012 NT-Pro-B Natriuret Pep 2630 H Impressions: Chest X-Ray 05/27/19 00:00 IMPRESSION: NO ACUTE RADIOGRAPHIC FINDING IN THE CHEST. Assessment & Plan - Diagnosis (1) Pulmonary vascular congestion Is this a current diagnosis for this admission?: Yes Plan: Currently all resolved (2) Shortness of breath Is this a current diagnosis for this admission?: Yes (3) Acute on chronic congestive heart failure Qualifiers: Heart failure type: right-sided Qualified Code(s): I50.813 - Acute on chronic right heart failure Is this a current diagnosis for this admission?: Yes Plan: Continues to Lasix 20 mg p.o. daily (4) Acute on chronic respiratory failure with hypoxia and hypercapnia Is this a current diagnosis for this admission?: Yes Plan: Continues the BiPAP and at home with trilogy machine (5) Anxiety and depression Is this a current diagnosis for this admission?: Yes (6) Moderate to severe pulmonary hypertension Is this a current diagnosis for this admission?: Yes (7) Noncompliance Is this a current diagnosis for this admission?: Yes - Time Time Spent with patient: 15-24 minutes Level of Care: IMCU Medications reviewed and adjusted accordingly: Yes Anticipated discharge: Home Within: Other - Plan Summary Plan Summary: Continues to current medications
[2019-05-28] MEDS: ALPRAZOLAM 0.5 MG TABLET PO SCH ×2 (09:57→21:04)
[2019-05-28] MEDS: DIGOXIN 0.25 MG TABLET PO SCH (09:57)
[2019-05-28] MEDS: CARVEDILOL 6.25 MG TABLET PO SCH ×2 (09:57→21:05)
[2019-05-28] MEDS: ESCITALOPRAM OXALATE 10 MG TABLET PO SCH (09:57)
[2019-05-28] MEDS: FUROSEMIDE 20 MG TABLET PO SCH (09:57)
[2019-05-28] MEDS: METHYLPREDNISOLONE INJ 40 MG/1 ML SDV IV SCH ×2 (09:57→21:05)
[2019-05-28] MEDS: DOCUSATE SODIUM 100 MG CAPSULE PO SCH ×2 (09:58→21:04)
[2019-05-28] MEDS: ENOXAPARIN SODIUM INJ 40 MG/0.4 ML DISP.SYRIN SUBCUT SCH (09:58)
[2019-05-28 10:03] LABS: ARTERIAL BLOOD BASE EXCESS 20.9 mmol/L; ARTERIAL BLOOD H2CO3 2.47 mmol/L (1.05-1.35); ARTERIAL BLOOD HCO3 49.3 mmol/L (20-24); ARTERIAL BLOOD O2 SATURATION 91.2 % (94-98); ARTERIAL BLOOD PO2 64.4 mmHg (80-100); ARTERIAL BLOOD TOTAL CO2 51.8 mmol/L (21-25)
[2019-05-28 10:19] LABS: ARTERIAL BLOOD FIO2 35%
[2019-05-28 10:20] LABS: ARTERIAL BLOOD PCO2 81.9 mmHg (35-45)
[2019-05-28] MEDS: FLUTICASONE/UMECLIDIN/VILANTER 100-62.5-25 MCG/DOSE IH SCH (11:35)
--- NOTE | 2019-05-28 17:35 | PDOC PROGRESS REPORT ---
Subjective Progress Note for:: 05/28/19 Subjective:: Patient seen. No distress. On noninvasive positive pressure ventilation. Reason For Visit: RESPIRATORY FAILURE,SHORTNESS OF BREATH Physical Exam Vital Signs: Temp Pulse Resp BP Pulse Ox 97.9 F 72 20 113/59 L 98 05/28/19 08:11 05/28/19 16:24 05/28/19 16:24 05/28/19 16:24 05/28/19 16:24 Intake & Output 05/27/19 05/28/19 05/29/19 06:59 06:59 06:59 Intake Total 1230 1160 300 Output Total 1200 200 Balance 30 960 300 Weight 65.5 kg 63.7 kg General appearance: PRESENT: no acute distress Respiratory exam: PRESENT: unlabored, other - Noninvasive positive pressure ventilation Neurological exam: PRESENT: alert, oriented to person, oriented to place Psychiatric exam: PRESENT: appropriate affect Results Laboratory Results: 05/27/19 05:03 05/28/19 04:42 05/28/19 05/28/19 05/28/19 04:42 09:18 09:49 Carbonic Acid Cancelled 2.47 H HCO3/H2CO3 Ratio Cancelled 19:1 ABG pH Cancelled 7.40 ABG pCO2 Cancelled 81.9 H* ABG pO2 Cancelled 64.4 L ABG HCO3 Cancelled 49.3 H ABG O2 Saturation Cancelled 91.2 L ABG Base Excess Cancelled 20.9 FiO2 Cancelled 35% Sodium 139.0 Potassium 4.5 Chloride 92 L Carbon Dioxide 44 H* Anion Gap 3 L BUN 30 H Creatinine 1.22 Est GFR ( Amer) 54 L Glucose 96 Calcium 9.2 05/25/19 20:30 Troponin I < 0.012 NT-Pro-B Natriuret Pep 2630 H Impressions: Chest X-Ray 05/27/19 00:00 IMPRESSION: NO ACUTE RADIOGRAPHIC FINDING IN THE CHEST. Assessment & Plan - Diagnosis (1) COPD exacerbation Plan: Supportive care. Bronchodilator therapy (2) Pulmonary vascular congestion Is this a current diagnosis for this admission?: Yes Plan: Mild pulmonary vascular congestion Probably consider maintenance diuretic. Clinical presentation does not suggest cor pulmonale or right ventricular failure. Continue present management for pulmonary hypertension including phosphodiesterase inhibitors. Could consider outpatient right heart cath (4) Pulmonary hypertension Plan: Likely secondary to COPD and underlying lung issues Continue phosphodiesterase inhibitor Continue noninvasive positive pressure ventilation Continue bronchodilator therapy
[2019-05-29] MEDS: BUSPIRONE HCL 10 MG TABLET PO SCH (06:11)
[2019-05-29 06:18] LABS: BLOOD UREA NITROGEN 27 mg/dL (7-20); CALCIUM 9.7 mg/dL (8.4-10.2); CHLORIDE 93 mmol/L (98-107); GLUCOSE 100 mg/dL (75-110); POTASSIUM 4.6 mmol/L (3.6-5.0)
[2019-05-29 06:36] LABS: ANION GAP 6 (5-19)
[2019-05-29 06:37] LABS: CARBON DIOXIDE 41 mmol/L (22-30)
[2019-05-29] MEDS: SILDENAFIL CITRATE 20 MG TABLET PO SCH (08:05)
--- NOTE | 2019-05-29 08:20 | PDOC PROGRESS REPORT ---
Subjective Progress Note for:: 05/29/19 Subjective:: Patient is currently doing well Seen by Dr. Moore and according to the patient he told the patient's maybe he can provide a different mask from his office Patient's is seen by the cardiology currently all stable Chest x-ray is all clear Reason For Visit: RESPIRATORY FAILURE,SHORTNESS OF BREATH Physical Exam Vital Signs: Temp Pulse Resp BP Pulse Ox 97.4 F 62 18 126/63 H 98 05/29/19 07:02 05/29/19 07:02 05/29/19 07:02 05/29/19 07:02 05/29/19 07:02 Intake & Output 05/28/19 05/29/19 05/30/19 06:59 06:59 06:59 Intake Total 1160 675 Output Total 200 200 Balance 960 475 Weight 63.7 kg 66.5 kg General appearance: PRESENT: no acute distress, well-developed, well-nourished Head exam: PRESENT: atraumatic, normocephalic Eye exam: PRESENT: conjunctiva pink, EOMI, PERRLA. ABSENT: scleral icterus Ear exam: PRESENT: normal external ear exam Mouth exam: PRESENT: moist, tongue midline Neck exam: PRESENT: full ROM. ABSENT: carotid bruit, JVD, lymphadenopathy, thyromegaly Respiratory exam: PRESENT: clear to auscultation bianca Cardiovascular exam: PRESENT: RRR. ABSENT: diastolic murmur, rubs, systolic murmur Pulses: PRESENT: normal dorsalis pedis pul, +2 pedal pulses bilateral Vascular exam: PRESENT: normal capillary refill GI/Abdominal exam: PRESENT: normal bowel sounds, soft. ABSENT: distended, guarding, mass, organolmegaly, rebound, tenderness Rectal exam: PRESENT: deferred Neurological exam: PRESENT: alert, awake, oriented to person, oriented to place, oriented to time, oriented to situation, CN II-XII grossly intact. ABSENT: motor sensory deficit Psychiatric exam: PRESENT: appropriate affect, normal mood. ABSENT: homicidal ideation, suicidal ideation Skin exam: PRESENT: dry, intact, warm. ABSENT: cyanosis, rash Results Laboratory Results: 05/27/19 05:03 05/29/19 05:37 05/28/19 05/28/19 05/29/19 09:18 09:49 05:37 Carbonic Acid Cancelled 2.47 H HCO3/H2CO3 Ratio Cancelled 19:1 ABG pH Cancelled 7.40 ABG pCO2 Cancelled 81.9 H* ABG pO2 Cancelled 64.4 L ABG HCO3 Cancelled 49.3 H ABG O2 Saturation Cancelled 91.2 L ABG Base Excess Cancelled 20.9 FiO2 Cancelled 35% Sodium 139.9 Potassium 4.6 Chloride 93 L Carbon Dioxide 41 H* Anion Gap 6 BUN 27 H Creatinine 1.18 Est GFR ( Amer) 56 L Glucose 100 Calcium 9.7 05/25/19 20:30 Troponin I < 0.012 NT-Pro-B Natriuret Pep 2630 H Impressions: Chest X-Ray 05/27/19 00:00 IMPRESSION: NO ACUTE RADIOGRAPHIC FINDING IN THE CHEST. Assessment & Plan - Diagnosis (1) Pulmonary vascular congestion Is this a current diagnosis for this admission?: Yes (2) Shortness of breath Is this a current diagnosis for this admission?: Yes (3) Acute on chronic congestive heart failure Qualifiers: Heart failure type: right-sided Qualified Code(s): I50.813 - Acute on chronic right heart failure Is this a current diagnosis for this admission?: Yes (4) Acute on chronic respiratory failure with hypoxia and hypercapnia Is this a current diagnosis for this admission?: Yes (5) Anxiety and depression Is this a current diagnosis for this admission?: Yes (6) Moderate to severe pulmonary hypertension Is this a current diagnosis for this admission?: Yes (7) Noncompliance Is this a current diagnosis for this admission?: Yes - Time Time Spent with patient: 15-24 minutes Level of Care: IMCU Medications reviewed and adjusted accordingly: Yes Anticipated discharge: Home with Homehealth Within: Other - Plan Summary Plan Summary: Patient is currently doing much better I think patients probably need to use the trilogy machines and the mask is issue to which as per discussed with the pulmonary patient is currently going to take the mask which currently using a BiPAP here which works better than home mask and he will adjust the mask in his office discussed with the nursing staff and the respiratory to adjust the mask with the current home machine and I think patients can be discharged within a 24 hours
[2019-05-29] MEDS: BUDESONIDE NEB 0.5 MG/2 ML AMPUL NEB SCH (09:02)
--- NOTE | 2019-05-29 09:29 | PDOC CONSULTATION ---
Consultation Consult Date: 05/26/19 Attending physician:: DANIAL HALL Provider Consulted: ORALIA NOEL Consult reason:: Respiratory failure/pulmonary hypertension History of Present Illness Admission Date/PCP: 05/25/19 22:47 DANIAL HALL MD History of Present Illness: CECILE BERRIOS is a 63 year old female 9-year-old female with a [id number] history chronic hypoxic hypercapnic respiratory failure presents emergency room with increasing shortness of breath improved with bronchodilator therapy and CPAP she also had echocardiogram that showed pulmonary hypertension. Her size tolerance is extremely limited at this time however it has improved since initial admission. She has been exposed to large amounts of diesel feel she worked extended time [place] no pets no recent travel sleeps on one pillow no PND no nocturnal cough unaware of any snoring restless sleep nocturia X2 denies unrestful sleep but admits to excessive daytime somnolence Past Medical History Cardiac Medical History: Reports: Congestive Heart Failure, Hypertension Denies: Atrial Fibrillation, Coronary Artery Disease, DVT, Myocardial Infarction, Pulmonary Embolism Pulmonary Medical History: Reports: Bronchitis, Chronic Obstructive Pulmonary Disease (COPD), Respiratory Failure Neurological Medical History: Denies: Seizures Endocrine Medical History: Denies: Diabetes Mellitus Type 1, Diabetes Mellitus Type 2, Hyperthyroidism, Hypothyroidism GI Medical History: Denies: Cirrhosis, Crohn's Disease, Hepatitis, Ulcerative Colitis Musculoskeltal Medical History: Denies: Arthritis, Fibromyalgia, Gout Skin Medical History: Denies: Eczema, Psoriasis Psychiatric Medical History: Reports: Depression Traumatic Medical History: Reports: Traumatic Brain Injury Hematology: Denies: Anemia, Sickle Cell Disease, Bleeding Tendencies Infectious Medical History: Denies: Clostridium Difficile Past Surgical History Past Surgical History: Reports: Hysterectomy Social History Information Source: Patient, [facility] Records 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 denies: Arthritis, CAD, CVA, Hyperlipidemia, Thyroid Disfunction Parental Family History Reviewed: Yes Children Family History Reviewed: Yes Sibling(s) Family History Reviewed.: Yes Medication/Allergy Home Medications: Carvedilol [Coreg 6.25 mg Tablet] 6.25 mg PO Q12 tablet 04/02/19 Digoxin [Lanoxin 0.25 mg Tablet] 0.25 mg PO DAILY tablet 04/02/19 Docusate Sodium [Colace 100 mg Capsule] 100 mg PO Q12 capsule 04/02/19 Fluticasone/Umeclidin/Vilanter [Trelegy 100-62.5-25 Mcg Ellipta 14 Dose/Dpi] 1 inh IH DAILY inhaler 04/02/19 Furosemide [Lasix 20 mg Tablet] 20 mg PO DAILY tablet 04/02/19 Escitalopram Oxalate [Lexapro 10 mg Tablet] 5 mg PO DAILY 05/05/19 Budesonide [Pulmicort Neb 0.5 mg/2 ml Ampul] 0.5 mg NEB RTQ12 #60 ampul.neb 05/15/19 Buspirone HCl [Buspar 10 mg Tablet] 5 mg PO Q8 #90 tablet 05/15/19 Sildenafil Citrate [Revatio 20 mg Tablet] 20 mg PO MEALS #30 tablet 05/15/19 Albuterol Sulfate [Ventolin 0.083% Neb 2.5 mg/3 ml Ampul] 1 vial NEB Q6HP PRN 05/26/19 Alprazolam [Xanax 0.5 mg Tablet] 0.5 mg PO Q12HP PRN 05/26/19 Allergies/Adverse Reactions: No Known Allergies Allergy (Verified 01/18/18 18:24) Review of Systems All systems: reviewed and no additional remarkable complaints except as stated Physical Exam Vital Signs: Temp Pulse Resp BP Pulse Ox 97.8 F 98 16 140/80 H 90 L 05/26/19 08:24 05/26/19 08:24 05/26/19 08:24 05/26/19 08:24 05/26/19 08:24 Intake & Output 05/25/19 05/26/19 05/27/19 06:59 06:59 06:59 Intake Total 444 Output Total 50 Balance 394 Weight 66.7 kg General appearance: PRESENT: no acute distress, cooperative, disheveled, well- developed, well-nourished Head exam: PRESENT: atraumatic, normocephalic Eye exam: PRESENT: conjunctiva pale, EOMI. ABSENT: nystagmus, periorbital swelling, scleral icterus Mouth exam: PRESENT: moist, neck supple, tongue midline Neck exam: ABSENT: carotid bruit, full ROM, JVD, lymphadenopathy, meningismus, tenderness, thyromegaly, tracheal deviation, tracheostomy, other Respiratory exam: PRESENT: decreased breath sounds, prolonged expiratory phas, rhonchi, symmetrical, unlabored. ABSENT: retraction, stridor, tachypnea Cardiovascular exam: PRESENT: RRR, +S1, +S2. ABSENT: tachycardia Pulses: PRESENT: normal radial pulses GI/Abdominal exam: PRESENT: soft. ABSENT: guarding, mass, rebound, tenderness Extremities exam: ABSENT: calf tenderness, clubbing, full ROM, joint swelling Musculoskeletal exam: ABSENT: deformity, dislocation Neurological exam: PRESENT: alert, awake Psychiatric exam: PRESENT: appropriate affect Skin exam: PRESENT: dry, warm Results Laboratory Results: 05/25/19 20:30 05/26/19 05:04 05/25/19 05/25/19 05/25/19 20:30 20:30 20:55 WBC 8.6 RBC 2.95 L Hgb 9.4 L Hct 28.3 L MCV 96 MCH 31.9 MCHC 33.3 RDW 14.4 H Plt Count 334 Seg Neutrophils % 79.2 H Carbonic Acid HCO3/H2CO3 Ratio ABG pH ABG pCO2 ABG pO2 ABG HCO3 ABG O2 Saturation ABG Base Excess FiO2 Sodium 137.7 Potassium 4.2 Chloride 92 L Carbon Dioxide 39 H Anion Gap 7 BUN 8 Creatinine 1.08 Est GFR ( Amer) > 60 Glucose 101 Calcium 9.6 Total Bilirubin 0.6 AST 20 Alkaline Phosphatase 75 Total Protein 6.8 Albumin 3.5 Urine Color YELLOW Urine Appearance CLEAR Urine pH 7.0 Ur Specific [place] 1.012 Urine Protein NEGATIVE Urine Glucose (UA) NEGATIVE Urine Ketones NEGATIVE Urine Blood NEGATIVE Urine Nitrite NEGATIVE Ur Leukocyte Esterase NEGATIVE Urine WBC (Auto) 0 Urine RBC (Auto) 2 05/25/19 05/26/19 05/26/19 21:45 05:04 09:30 WBC RBC Hgb Hct MCV MCH MCHC RDW Plt Count Seg Neutrophils % Carbonic Acid 1.67 H 2.08 H HCO3/H2CO3 Ratio 23:1 18:1 ABG pH 7.46 H 7.37 ABG pCO2 55.5 H 69.2 H* ABG pO2 34.5 L* 47.6 L ABG HCO3 38.9 H 39.3 H ABG O2 Saturation 68.1 L 80.6 L ABG Base Excess 13.4 11.6 FiO2 2L 2L Sodium 140.0 Potassium 4.9 Chloride 93 L Carbon Dioxide 39 H Anion Gap 8 BUN 10 Creatinine 1.13 Est GFR ( Amer) 59 L Glucose 176 H Calcium 9.8 Total Bilirubin AST Alkaline Phosphatase Total Protein Albumin Urine Color Urine Appearance Urine pH Ur Specific [place] Urine Protein Urine Glucose (UA) Urine Ketones Urine Blood Urine Nitrite Ur Leukocyte Esterase Urine WBC (Auto) Urine RBC (Auto) 05/25/19 20:30 Troponin I < 0.012 NT-Pro-B Natriuret Pep 2630 H Impressions: Chest X-Ray 05/25/19 20:44 IMPRESSION: Mild cardiomegaly and diffuse interstitial prominence raising the concern for pulmonary vascular congestion/edema. Assessment & Plan - Diagnosis (1) Pulmonary hypertension Is this a current diagnosis for this admission?: Yes Plan: Schedule patient for right heart cath outpatient (2) Acute on chronic respiratory failure with hypoxia and hypercapnia Is this a current diagnosis for this admission?: Yes Plan: Labs- All tests 24 hr 05/25/19 05/26/19 05/27/19 21:45 09:30 11:24 ABG pCO2 55.5 H 69.2 H* 82.3 H* 05/28/19 09:49 ABG pCO2 81.9 H* Generic Name Dose Route Start Last Admin Trade Name Freq PRN Reason Stop Dose Admin Sildenafil Citrate 20 mg 05/06/19 17:00 05/08/19 11:37 Revatio 20 Mg Tablet PO 06/05/19 16:59 20 mg MEALS KENNY Methylprednisolone Sodium Succinate 40 mg 05/08/19 14:00 05/08/19 14:25 Solu-Medrol Inj/Pf 40 Mg/1 Ml Sdv IV 06/07/19 13:59 40 mg Q8 KENNY Albuterol/Ipratropium 3 ml 05/05/19 23:01 05/07/19 06:08 Duoneb 3 Ml Ampul NEB 06/04/19 23:00 3 ml Q4HP PRN SOB The above patient has failed BiPAP with a patent airway. This patient would benefit from noninvasive mechanical ventilation via the trilogy AVAPS/AE and faster responding AVAPS rates. The trilogy is able to provide a target tidal volume and also adjusting the EPAP pressures to maintain a patent airway as well as an oral backup rate this machine will help improve PaCO2 levels. The severity of the patient's condition will lead to future hospitalizations and readmissions as well as life-threatening situations without the use of this device day and night. Trilogy home vent needed for hypercapnic respiratory failure. [facility] or [facility] [place] to follow for trilogy set up. - Time Time Spent: 50 to 70 Minutes
[2019-05-29] MEDS: DOCUSATE SODIUM 100 MG CAPSULE PO SCH (10:21)
[2019-05-29] MEDS: METHYLPREDNISOLONE INJ 40 MG/1 ML SDV IV SCH (10:33)
[2019-05-29] MEDS: CARVEDILOL 6.25 MG TABLET PO SCH (10:34)
[2019-05-29] MEDS: DIGOXIN 0.25 MG TABLET PO SCH (10:34)
[2019-05-29] MEDS: FUROSEMIDE 20 MG TABLET PO SCH (10:35)
[2019-05-29] MEDS: ESCITALOPRAM OXALATE 10 MG TABLET PO SCH (10:35)
[2019-05-29] MEDS: FLUTICASONE/UMECLIDIN/VILANTER 100-62.5-25 MCG/DOSE IH SCH (10:36)
[2019-05-29] MEDS: ALPRAZOLAM 0.5 MG TABLET PO SCH ×2 (10:37→12:54)
[2019-05-29] MEDS: ENOXAPARIN SODIUM INJ 40 MG/0.4 ML DISP.SYRIN SUBCUT SCH (10:37)
[2019-05-29 12:25] VITALS: BP 140/80
--- NOTE | 2019-05-29 16:20 | PDOC DISCHARGE SUMMARY ---
Impression - Admit/DC Date/PCP Admission Date/Primary Care Provider: 05/25/19 22:47 DANIAL HALL MD Discharge Date: 05/29/19 - Discharge Diagnosis (1) Pulmonary vascular congestion Is this a current diagnosis for this admission?: Yes (2) Shortness of breath Is this a current diagnosis for this admission?: Yes (3) Acute on chronic congestive heart failure Is this a current diagnosis for this admission?: Yes (4) Acute on chronic respiratory failure with hypoxia and hypercapnia Is this a current diagnosis for this admission?: Yes (5) Anxiety and depression Is this a current diagnosis for this admission?: Yes (6) Moderate to severe pulmonary hypertension Is this a current diagnosis for this admission?: Yes (7) Noncompliance Is this a current diagnosis for this admission?: Yes - Additional Information Discharge Diet: Cardiac Discharge Activity: Activity As Tolerated, Balance Activity w/Rest, Weigh Daily Referrals: ORALIA MOORE MD [ACTIVE STAFF] - 06/17/19 12:30 pm GILSON SOLIS MD [ACTIVE STAFF] - 06/02/19 9:00 am (left message to call us) DANIAL HALL MD [Primary Care Provider] - 06/05/19 9:15 am Home Medications: Carvedilol [Coreg 6.25 mg Tablet] 6.25 mg PO Q12 tablet 04/02/19 Digoxin [Lanoxin 0.25 mg Tablet] 0.25 mg PO DAILY tablet 04/02/19 Docusate Sodium [Colace 100 mg Capsule] 100 mg PO Q12 capsule 04/02/19 Fluticasone/Umeclidin/Vilanter [Trelegy 100-62.5-25 Mcg Ellipta 14 Dose/Dpi] 1 inh IH DAILY inhaler 04/02/19 Furosemide [Lasix 20 mg Tablet] 20 mg PO DAILY tablet 04/02/19 Escitalopram Oxalate [Lexapro 10 mg Tablet] 5 mg PO DAILY 05/05/19 Budesonide [Pulmicort Neb 0.5 mg/2 ml Ampul] 0.5 mg NEB RTQ12 #60 ampul.neb 05/15/19 Buspirone HCl [Buspar 10 mg Tablet] 5 mg PO Q8 #90 tablet 05/15/19 Sildenafil Citrate [Revatio 20 mg Tablet] 20 mg PO MEALS #30 tablet 05/15/19 Albuterol Sulfate [Ventolin 0.083% Neb 2.5 mg/3 mL Ampul] 1 vial NEB Q6HP PRN 05/26/19 Alprazolam [Xanax 0.5 mg Tablet] 0.5 mg PO Q12HP PRN 05/26/19 History of Present Illiness History of Present Illness: CECILE BERRIOS is a 63 year old female This is a 63-year-old female's with history of the chronic respiratory failure severe pulmonary hypertension's congestive heart failure COPD currently on oxygen dependent 3 to 4 L and also trilogy machine several hospital admissions since last 3 months in and out most likely due to the noncompliance recently discharged home with a trilogy machine and oxygen came to the emergency department with the oxygen level was very lowAnd patient's oxygen level goes to up to 60% and patients brought to the emergency departments will put on the BiPAP and oxygen and patient is feeling so much better Patient's claim that she does not use the trilogy much since day before but use last night so again the patient is very noncompliance with not using the machines properly even the patient have a several days in the hospital was to teach how to use it and give her several instructions myself Dr. Moore Patient's currently denied any chest pain no short of breath patient's chest x- ray suggesting pulmonary vascular congestions given some IV Lasix patient's ABG on pH is 7.37 Hospital Course Hospital Course: Is a 63-year-old female with multiple hospital admissions due to the chronic respiratory failure noncompliance chronic heart failure severe pulmonary hypertension's COPD came to the emergency department with the same issue with the shortness of the breath O2 sat was low Since chest x-ray showed some mild pulmonary vascular congestions as usual hypoxic hypercapnic respiratory failure Patient is very noncompliance the patient's mass now we find out that does not fit according to the patient's so I do not think the patient using properly patient was stitches so many times in the past by the respiratory therapist and the nurses I think still issue with the patient in the hospital patient is giving the respiratory treatments seen by the cardiology and pulmonary Patient is back to the baseline's still significant respiratory issues patient at this point seen by Dr. Moore's for a new mask with the trilogy machine and follow-up with him Patient seen by cardiology and suggest the may be a outpatients cardiac cath but currently no need for any further treatments changes Otherwise feeling much better back to the baseline discharge home discussed with the patient's family compliance with the medications and compliance with the machine Physical Exam Vital Signs: Temp Pulse Resp BP Pulse Ox 97.4 F 64 16 140/80 H 93 05/29/19 12:22 05/29/19 12:22 05/29/19 12:22 05/29/19 12:22 05/29/19 12:22 Intake & Output 05/28/19 05/29/19 05/30/19 06:59 06:59 06:59 Intake Total 1160 675 Output Total 200 200 Balance 960 475 Weight 63.7 kg 66.5 kg General appearance: PRESENT: no acute distress, well-developed, well-nourished Head exam: PRESENT: atraumatic, normocephalic Eye exam: PRESENT: conjunctiva pink, EOMI, PERRLA. ABSENT: scleral icterus Ear exam: PRESENT: normal external ear exam Mouth exam: PRESENT: moist, tongue midline Neck exam: ABSENT: carotid bruit, JVD, lymphadenopathy, thyromegaly Respiratory exam: PRESENT: clear to auscultation bianca. ABSENT: rales, rhonchi, wheezes Cardiovascular exam: PRESENT: RRR. ABSENT: diastolic murmur, rubs, systolic murmur Pulses: PRESENT: normal dorsalis pedis pul Vascular exam: PRESENT: normal capillary refill GI/Abdominal exam: PRESENT: normal bowel sounds, soft. ABSENT: distended, guarding, mass, organolmegaly, rebound, tenderness Rectal exam: PRESENT: deferred Extremities exam: PRESENT: full ROM. ABSENT: calf tenderness, clubbing, pedal edema Neurological exam: PRESENT: alert, awake, oriented to person, oriented to place, oriented to time, oriented to situation, CN II-XII grossly intact. ABSENT: motor sensory deficit Psychiatric exam: PRESENT: appropriate affect, normal mood. ABSENT: homicidal ideation, suicidal ideation Skin exam: PRESENT: dry, intact, warm. ABSENT: cyanosis, rash Results Laboratory Results: WBC 10.9 10^3/uL (4.0-10.5) H 05/27/19 05:03 RBC 2.97 10^6/uL (3.72-5.28) L 05/27/19 05:03 Hgb 9.3 g/dL (12.0-15.5) L 05/27/19 05:03 Hct 27.8 % (36.0-47.0) L 05/27/19 05:03 MCV 94 fl (80-97) 05/27/19 05:03 MCH 31.4 pg (27.0-33.4) 05/27/19 05:03 MCHC 33.6 g/dL (32.0-36.0) 05/27/19 05:03 RDW 14.3 % (11.5-14.0) H 05/27/19 05:03 Plt Count 351 10^3/uL (150-450) 05/27/19 05:03 Lymph % (Auto) Not Reportable 05/27/19 05:03 [place] % (Auto) Not Reportable 05/27/19 05:03 Eos % (Auto) Not Reportable 05/27/19 05:03 Baso % (Auto) Not Reportable 05/27/19 05:03 Absolute Neuts (auto) Not Reportable 05/27/19 05:03 Absolute Lymphs (auto) Not Reportable 05/27/19 05:03 Absolute Monos (auto) Not Reportable 05/27/19 05:03 Absolute Eos (auto) Not Reportable 05/27/19 05:03 Absolute Basos (auto) Not Reportable 05/27/19 05:03 Total Counted 100 05/27/19 05:03 Seg Neutrophils % Not Reportable 05/27/19 05:03 Seg Neuts % (Manual) 91 % (42-78) H 05/27/19 05:03 Lymphocytes % (Manual) 6 % (13-45) L 05/27/19 05:03 Monocytes % (Manual) 3 % (3-13) 05/27/19 05:03 Eosinophils % (Manual) 0 % (0-6) 05/27/19 05:03 Basophils % (Manual) 0 % (0-2) 05/27/19 05:03 Abs Neuts (Manual) 9.9 10^3/uL (1.7-8.2) H 05/27/19 05:03 Abs Lymphs (Manual) 0.7 10^3/uL (0.5-4.7) 05/27/19 05:03 Abs Monocytes (Manual) 0.3 10^3/uL (0.1-1.4) 05/27/19 05:03 Absolute Eos (Manual) 0.0 10^3/uL (0.0-0.6) 05/27/19 05:03 Abs Basophils (Manual) 0.0 10^3/uL (0.0-0.2) 05/27/19 05:03 Platelet Comment ADEQUATE 05/27/19 05:03 Anisocytosis SLIGHT 05/27/19 05:03 Tear Drop Cells SLIGHT 05/27/19 05:03 Stomatocytes SLIGHT 05/27/19 05:03 Carbonic Acid 2.47 mmol/L (1.05-1.35) H 05/28/19 09:49 HCO3/H2CO3 Ratio 19:1 05/28/19 09:49 ABG pH 7.40 (7.35-7.45) 05/28/19 09:49 ABG pCO2 81.9 mmHg (35-45) H* 05/28/19 09:49 ABG pO2 64.4 mmHg (80-100) L 05/28/19 09:49 ABG HCO3 49.3 mmol/L (20-24) H 05/28/19 09:49 ABG Total CO2 51.8 mmol/L (21-25) H 05/28/19 09:49 ABG O2 Saturation 91.2 % (94-98) L 05/28/19 09:49 ABG Base Excess 20.9 mmol/L 05/28/19 09:49 FiO2 35% 05/28/19 09:49 Sodium 139.9 mmol/L (137-145) 05/29/19 05:37 Potassium 4.6 mmol/L (3.6-5.0) 05/29/19 05:37 Chloride 93 mmol/L (98-107) L 05/29/19 05:37 Carbon Dioxide 41 mmol/L (22-30) H* 05/29/19 05:37 Anion Gap 6 (5-19) 05/29/19 05:37 BUN 27 mg/dL (7-20) H 05/29/19 05:37 Creatinine 1.18 mg/dL (0.52-1.25) 05/29/19 05:37 Est GFR ( Amer) 56 (>60) L 05/29/19 05:37 Est GFR (MDRD) Non-Af 47 (>60) L 05/29/19 05:37 Glucose 100 mg/dL (75-110) 05/29/19 05:37 Calcium 9.7 mg/dL (8.4-10.2) 05/29/19 05:37 Total Bilirubin 0.6 mg/dL (0.2-1.3) 05/25/19 20:30 Direct Bilirubin 0.3 mg/dL (0.0-0.4) 05/25/19 20:30 Neonat Total Bilirubin Not Reportable 05/25/19 20:30 Neonat Direct Bilirubin Not Reportable 05/25/19 20:30 Neonat Indirect Bili Not Reportable 05/25/19 20:30 AST 20 U/L (14-36) 05/25/19 20:30 ALT 11 U/L (<35) 05/25/19 20:30 Alkaline Phosphatase 75 U/L (38-126) 05/25/19 20:30 Troponin I < 0.012 ng/mL 05/25/19 20:30 NT-Pro-B Natriuret Pep 2630 pg/mL (<125) H 05/25/19 20:30 Total Protein 6.8 g/dL (6.3-8.2) 05/25/19 20:30 Albumin 3.5 g/dL (3.5-5.0) 05/25/19 20:30 Urine Color YELLOW 05/25/19 20:55 Urine Appearance CLEAR 05/25/19 20:55 Urine pH 7.0 (5.0-9.0) 05/25/19 20:55 Ur Specific [place] 1.012 05/25/19 20:55 Urine Protein NEGATIVE mg/dL (NEGATIVE) 05/25/19 20:55 Urine Glucose (UA) NEGATIVE mg/dL (NEGATIVE) 05/25/19 20:55 Urine Ketones NEGATIVE mg/dL (NEGATIVE) 05/25/19 20:55 Urine Blood NEGATIVE (NEGATIVE) 05/25/19 20:55 Urine Nitrite NEGATIVE (NEGATIVE) 05/25/19 20:55 Urine Bilirubin NEGATIVE (NEGATIVE) 05/25/19 20:55 Urine Urobilinogen 4.0 mg/dL (<2.0) H 05/25/19 20:55 Ur Leukocyte Esterase NEGATIVE (NEGATIVE) 01/19/20 20:55 Urine WBC (Auto) 0 /HPF 05/25/19 20:55 Urine RBC (Auto) 2 /HPF 05/25/19 20:55 Squamous Epi Cells Auto 1 /HPF 05/25/19 20:55 Urine Ascorbic Acid NEGATIVE (NEGATIVE) 05/25/19 20:55 05/25/19 20:30 Troponin I < 0.012 NT-Pro-B Natriuret Pep 2630 H Impressions: Chest X-Ray 05/25/19 20:44 IMPRESSION: Mild cardiomegaly and diffuse interstitial prominence raising the concern for pulmonary vascular congestion/edema. Chest X-Ray 05/27/19 00:00 IMPRESSION: NO ACUTE RADIOGRAPHIC FINDING IN THE CHEST. Plan Time Spent: Greater than 30 Minutes - Follow-up with the pulmonary Follow in office 1 week Stroke Is this a Stroke Patient?: No Acute Heart Failure - Is this a Heart Failure Patient?: No
== END 2019-05-29 12:50 | disposition home health service (06) | DRG 189 ==
LOC: ER 19:55 → EH 22:47 → 3W 05-26 00:51 → 3S 05-27 16:22
PROVIDERS: ADMIT Family Medicine; ATTEND Family Medicine
DX: J96.21 Acute and chronic respiratory failure with hypoxia (principal); J44.1 Chronic obstructive pulmonary disease with (acute) exacerbation; I50.813 Acute on chronic right heart failure; J96.22 Acute and chronic respiratory failure with hypercapnia; I27.20 Pulmonary hypertension, unspecified; I11.0 Hypertensive heart disease with heart failure; F32.9 Major depressive disorder, single episode, unspecified; Z99.81 Dependence on supplemental oxygen; Z87.820 Personal history of traumatic brain injury; Z91.19 Patient's noncompliance with other medical treatment and regimen; Z87.891 Personal history of nicotine dependence; Z79.51 Long term (current) use of inhaled steroids; Z79.899 Other long term (current) drug therapy
CPT/HCPCS: 36415; 36600; 71045; 71046; 80048; 80053; 81001; 82803; 83880; 84484; 85025; 93005; 93010; 94640; 94660; 96374; 99291; J1650; J1940; J2060; J2920; J2930; J3490; J7620

== ENCOUNTER 2019-06-20 07:14 | Inpatient (IN) | payer BC ==
[2019-06-20 07:44] LABS: ABSOLUTE BASOPHILS # (AUTO) 0.1 10^3/uL (0.0-0.2); ABSOLUTE EOSINOPHILS # (AUTO) 0.2 10^3/uL (0.0-0.6); ABSOLUTE LYMPHOCYTES (AUTO) 0.6 10^3/uL (0.5-4.7); ABSOLUTE MONOCYTES (AUTO) 0.7 10^3/uL (0.1-1.4); ABSOLUTE NEUT (AUTO) 6.9 10^3/uL (1.7-8.2); BASOPHILS % (AUTO) 0.7 % (0-2); EOSINOPHILS % (AUTO) 2.4 % (0-6); HEMATOCRIT 29.3 % (36.0-47.0); HEMOGLOBIN 9.7 g/dL (12.0-15.5); LYMPHOCYTES % (AUTO) 7.6 % (13-45); MEAN CORPUSCULAR HEMOGLOBIN 30.4 pg (27.0-33.4); MEAN CORPUSCULAR HGB CONC 33.2 g/dL (32.0-36.0); MEAN CORPUSCULAR VOLUME 92 fl (80-97); MONOCYTES % (AUTO) 8.8 % (3-13); PLATELET COUNT 314 10^3/uL (150-450); RED CELL DISTRIBUTION WIDTH 14.4 % (11.5-14.0); SEGMENTED NEUTROPHILS % (AUTO) 80.5 % (42-78); TOTAL CELLS COUNTED % (AUTO) 100 %; WHITE BLOOD COUNT 8.5 10^3/uL (4.0-10.5)
[2019-06-20 08:27] LABS: ALBUMIN 3.5 g/dL (3.5-5.0); ALKALINE PHOSPHATASE 91 U/L (38-126); ASPARTATE AMINO TRANSFERASE 19 U/L (14-36); BILIRUBIN,DIRECT 0.3 mg/dL (0.0-0.4); BILIRUBIN,TOTAL 0.8 mg/dL (0.2-1.3); BLOOD UREA NITROGEN 14 mg/dL (7-20); CALCIUM 9.3 mg/dL (8.4-10.2); CHLORIDE 92 mmol/L (98-107); CREATINE KINASE 34 U/L (30-135); DIGOXIN 1.09 ng/mL (0.8-2.0); GLUCOSE 108 mg/dL (75-110); POTASSIUM 3.9 mmol/L (3.6-5.0); TOTAL PROTEIN 7.2 g/dL (6.3-8.2)
[2019-06-20 08:31] LABS: ANION GAP 9 (5-19)
[2019-06-20 08:35] LABS: CARBON DIOXIDE 40 mmol/L (22-30)
--- NOTE | 2019-06-20 08:37 | RADIOLOGY REPORT (SQ) ---
EXAM DESCRIPTION: CHEST SINGLE VIEW COMPLETED DATE/TIME: 06/20/2019 7:45 am REASON FOR STUDY: copd exacerbation COMPARISON: PA and lateral views of the chest from 05/27/2019. EXAM PARAMETERS: NUMBER OF VIEWS: One view. TECHNIQUE: An AP view of the chest was obtained. RADIATION DOSE: NA LIMITATIONS: None. FINDINGS: LUNGS AND PLEURA: Low inspiratory lung volumes with upper lobe predominant emphysema and b asilar predominant patchy opacities that could be chronic. There is no focal consolidation, sizable pleural effusion or pneumothorax. MEDIASTINUM AND HILAR STRUCTURES: No mediastinal or hilar contour abnormality. HEART AND VASCULAR STRUCTURES: The cardiac silhouette is within normal limits given the low inspirato ry lung volumes. BONES: No acute findings. HARDWARE: None in the chest. OTHER: No other finding. IMPRESSION: Low inspiratory lung volumes with upper lobe predominant emphysema and basilar predomina nt patchy opacities that could be chronic. There is no focal consolidation, sizable pleural effusion or pneumothorax. TECHNICAL DOCUMENTATION: JOB ID: [id number] 2011 [employer]- All Rights Reserved Reading location - IP/workstation name: [email or web address]
--- NOTE | 2019-06-20 09:54 | ER Document Report ---
Entered by JEFF ISAACS SCRIBE 06/20/19 0727 Acting as scribe for:SEGUN GARCIA MD ED Respiratory Problem - General Chief Complaint: Breathing Difficulty Stated Complaint: DIFFICULTY BREATHING Time Seen by Provider: 06/20/19 07:17 Primary Care Provider: DANIAL LATIF MD [Primary Care Provider] - Follow up as needed Mode of Arrival: Ambulatory Information source: Patient Notes: This 63-year-old female patient presents to the emergency department today with complaints of shortness of breath. Patient originally called EMS last night around 10 PM but refused transport at that time. When EMS arrived today the patient had a room air oxygen saturation of 89%. Patient has a trilogy machine but she states that her mask does not fit so she has not been using it. Patient denies any cough or fevers. TRAVEL OUTSIDE OF THE [place] IN LAST 30 DAYS: No - Related Data Allergies/Adverse Reactions: No Known Allergies Allergy (Verified 01/18/18 18:24) Past Medical History - General Information source: Patient - Social History Smoking Status: Smoker,Current Status Unk Cigarette use (# per day): Yes Frequency of alcohol use: None Drug Abuse: None Lives with: Family Family History: Reviewed & Not Pertinent, COPD, DM, Hypertension, Malignancy - Past Medical History Cardiac Medical History: Reports: Hx Congestive Heart Failure, Hx Hypertension Pulmonary Medical History: Reports: Hx Bronchitis, Hx COPD, Hx Respiratory Failure Psychiatric Medical History: Reports: Hx Depression Traumatic Medical History: Reports: Hx Traumatic Brain Injury Past Surgical History: Reports: Hx Hysterectomy - Immunizations Hx Diphtheria, Pertussis, Tetanus Vaccination: Yes Review of Systems - Review of Systems Constitutional: denies: Fever EENT: No symptoms reported Cardiovascular: No symptoms reported Respiratory: See HPI, Short of breath, Wheezing. denies: Cough Gastrointestinal: No symptoms reported Genitourinary: No symptoms reported Female Genitourinary: No symptoms reported Musculoskeletal: No symptoms reported Skin: No symptoms reported Hematologic/Lymphatic: No symptoms reported Neurological/Psychological: No symptoms reported -: Yes All other systems reviewed and negative Physical Exam - Vital signs Vitals: Temp Pulse Resp BP Pulse Ox 97.8 F 91 25 H 148/77 H 100 06/20/19 07:14 06/20/19 07:14 06/20/19 07:14 06/20/19 07:14 06/20/19 07:14 - Notes Notes: Physical Exam: General: Alert, appears short of breath. HEENT: Normocephalic. Atraumatic. PERRL. Extraocular movements intact. Oropharynx clear. Neck: Supple. Non-tender. Respiratory: Moderate respiratory distress. Wheezing at the bases bilaterally, very tight throughout with decreased air movement. Cardiovascular: Regular rate and rhythm. Abdominal: Normal Inspection. Non-tender. No distension. Normal Bowel Sounds. Back: No gross abnormalities. Extremities: Moves all four extremities. Upper extremities: Normal inspection. Normal ROM. Lower extremities: Normal inspection. No edema. Normal ROM. Neurological: Normal cognition. AAOx4. Normal speech. Psychological: Normal affect. Normal Mood. Skin: Warm. Dry. Normal color. Course - Re-evaluation Re-evalutation: 06/20/19 09:57 Patient reports that her breathing is much better after being on BiPAP. - Vital Signs Vital signs: Temp Pulse Resp BP Pulse Ox 97.8 F 91 25 H 148/77 H 100 06/20/19 07:14 06/20/19 07:14 06/20/19 07:14 06/20/19 07:14 06/20/19 07:14 - Laboratory Result Diagrams: 06/20/19 07:18 06/20/19 07:18 Laboratory results interpreted by me: 06/20/19 06/20/19 07:18 07:18 RBC 3.20 L Hgb 9.7 L Hct 29.3 L RDW 14.4 H Lymph % (Auto) 7.6 L Seg Neutrophils % 80.5 H Chloride 92 L Carbon Dioxide 40 H* Est GFR (MDRD) Non-Af 58 L - Diagnostic Test Radiology reviewed: Image reviewed, Reports reviewed - Low inspiratory lung volumes with upper lobe predominant emphysema and basilar predominant patchy opacities that could be chronic. No focal consolidation. - EKG Interpretation by Me EKG shows normal: Sinus rhythm, [place], Intervals, QRS Complexes, ST-T Waves Rate: Normal - 82 Rhythm: NSR, APC's [place]/QRS: Right axis deviation Voltage: Consistant with LVH P Waves: LAE When compared to previous EKG there are: No significant change - Consults Dr. Latif Time consulted: 10:00 Consulted provider: will see as inpatient - IMCU admit and consult Dr. Moore fix the trilogy mask. Critical Care Note - Critical Care Note Total time excluding time spent on procedures (mins): 35 Discharge - Discharge Clinical Impression: COPD exacerbation Condition: Stable Disposition: ADMITTED INPATIENT Admitting Provider: [facility] Unit Admitted: IMCU Referrals: DANIAL LATIF MD [Primary Care Provider] - Follow up as needed Scribe Attestation: 06/20/19 08:19 I personally performed the services described in the documentation, reviewed and edited the documentation which was dictated to the scribe in my presence, and it accurately records my words and actions. I personally performed the services described in the documentation, reviewed and edited the documentation which was dictated to the scribe in my presence, and it accurately records my words and actions.
[2019-06-20] MEDS ORDERED: ALBUTEROL SULFATE 0.083% NEB 2.5 MG/3 ML AMPUL NEB ONE (09:55)
[2019-06-20 10:23] LABS: ARTERIAL BLOOD FIO2 40%; ARTERIAL BLOOD HCO3 42.3 mmol/L (20-24); ARTERIAL BLOOD O2 SATURATION 80.8 % (94-98); ARTERIAL BLOOD PH 7.34 (7.35-7.45); ARTERIAL BLOOD PO2 49.8 mmHg (80-100); ARTERIAL BLOOD TOTAL CO2 44.8 mmol/L (21-25)
[2019-06-20 10:26] LABS: ARTERIAL BLOOD PCO2 79.9 mmHg (35-45)
[2019-06-20] MEDS ORDERED: ACETAMINOPHEN 325 MG TABLET PO PRN (11:07)
[2019-06-20] MEDS ORDERED: ALBUTEROL SULFATE 0.083% NEB 2.5 MG/3 ML AMPUL NEB PRN (11:13)
[2019-06-20] MEDS: IPRATROPIUM/ALBUTEROL 0.5-2.5 MG/3 ML AMPUL NEB SCH ×3 (12:25→19:06)
--- NOTE | 2019-06-20 13:00 | EKG REPORT ---
SEVERITY:- ABNORMAL ECG - SINUS RHYTHM ATRIAL PREMATURE COMPLEX LEFT ATRIAL ABNORMALITY RIGHT AXIS DEVIATION CONSIDER LEFT VENTRICULAR HYPERTROPHY : Confirmed by: Neftaly Barrett MD 20-Jun-2019 12:59:53
--- NOTE | 2019-06-20 13:49 | PDOC H&P ---
History of Present Illness Admission Date/PCP: 06/20/19 10:37 DANIAL HALL MD Patient complains of: Shortness of the breath History of Present Illness: CECILE BERRIOS is a 63 year old female Is a 63-year-old female's with history of the chronic respiratory failure history of 1 trilogy machines not using properly and is usable but he noncompliance and a history of severe pulmonary hypertension's diastolic congestive heart failure's anxiety disorders came to the emergency department with a complaint of increasing the shortness of the breath According to the patient's she tried to use the trilogy machine but the mask does not work very well Dr. Moore supposed to change the mask according to the patient did not happen yet and the patient did not use the machine patient's PCO2 as usual was 79 which is positive pretty much very close to the baseline Patient was put on a BiPAP is usually in the ER patients will better To admit the patient's try to utilize the trilogy machines with the fix the mask Past Medical History Cardiac Medical History: Reports: Congestive Heart Failure, Hypertension Denies: Atrial Fibrillation, Coronary Artery Disease, DVT, Myocardial Infarction, Pulmonary Embolism Pulmonary Medical History: Reports: Bronchitis, Chronic Obstructive Pulmonary Disease (COPD), Respiratory Failure Neurological Medical History: Denies: Seizures Endocrine Medical History: Denies: Diabetes Mellitus Type 1, Diabetes Mellitus Type 2, Hyperthyroidism, Hypothyroidism GI Medical History: Denies: Cirrhosis, Crohn's Disease, Hepatitis, Ulcerative Colitis Musculoskeltal Medical History: Denies: Arthritis, Fibromyalgia, Gout Skin Medical History: Denies: Eczema, Psoriasis Psychiatric Medical History: Reports: Depression, General Anxiety Disorder Traumatic Medical History: Reports: Traumatic Brain Injury Hematology: Denies: Anemia, Sickle Cell Disease, Bleeding Tendencies Infectious Medical History: Denies: Clostridium Difficile Past Surgical History Past Surgical History: Reports: Hysterectomy Social History Information Source: Patient Lives with: Family Smoking Status: Former Smoker Electronic Cigarette use?: No Frequency of Alcohol Use: Rare Hx Recreational Drug Use: No Drugs: None Hx Prescription Drug Abuse: No Family History Family History: Reviewed & Not Pertinent, COPD, DM, Hypertension, Malignancy Parental Family History Reviewed: Yes Children Family History Reviewed: Yes Sibling(s) Family History Reviewed.: Yes Medication/Allergy Home Medications: Albuterol Sulfate [Ventolin 0.083% Neb 2.5 mg/3 mL Ampul] 2.5 mg NEB RTQ6HP PRN 06/20/19 Alprazolam [Xanax 0.5 mg Tablet] 0.5 mg PO Q12HP PRN 06/20/19 Budesonide [Pulmicort Neb 0.5 mg/2 ml Ampul] 0.5 mg NEB RTQ12 06/20/19 Buspirone HCl [Buspar 10 mg Tablet] 5 mg PO Q8 06/20/19 Carvedilol [Coreg 6.25 mg Tablet] 6.25 mg PO Q12 06/20/19 Digoxin [Lanoxin 0.25 mg Tablet] 0.25 mg PO DAILY 06/20/19 Docusate Sodium [Colace 100 mg Capsule] 100 mg PO BID 06/20/19 Escitalopram Oxalate [Lexapro] 5 mg PO DAILY 06/20/19 Fluticasone/Umeclidin/Vilanter [Trelegy 100-62.5-25 Mcg Ellipta 14 Dose/Dpi] 1 puff IH DAILY 06/20/19 Furosemide [Lasix 20 mg Tablet] 20 mg PO DAILY 06/20/19 Sildenafil Citrate [Revatio 20 mg Tablet] 20 mg PO MEALS 06/20/19 Allergies/Adverse Reactions: No Known Allergies Allergy (Verified 01/18/18 18:24) Review of Systems Constitutional: ABSENT: chills, fever(s), headache(s), weight gain, weight loss Eyes: ABSENT: visual disturbances Ears: ABSENT: hearing changes Cardiovascular: PRESENT: dyspnea on exertion. ABSENT: chest pain, edema, orthropnea, palpitations Respiratory: ABSENT: cough, hemoptysis Gastrointestinal: ABSENT: abdominal pain, constipation, diarrhea, hematemesis, hematochezia, nausea, vomiting Genitourinary: ABSENT: dysuria, hematuria Musculoskeletal: ABSENT: joint swelling Integumentary: ABSENT: rash, wounds Neurological: ABSENT: abnormal gait, abnormal speech, confusion, dizziness, focal weakness, syncope Psychiatric: ABSENT: anxiety, depression, homidical ideation, suicidal ideation Endocrine: ABSENT: cold intolerance, heat intolerance, menstrual abnormalities, polydipsia, polyuria Hematologic/Lymphatic: ABSENT: easy bleeding, easy bruising, lymphadenopathy Physical Exam Vital Signs: Temp Pulse Resp BP Pulse Ox 97.8 F 91 25 H 148/77 H 100 06/20/19 07:14 06/20/19 07:14 06/20/19 07:14 06/20/19 07:14 06/20/19 07:14 Intake & Output 06/19/19 06/20/19 06/21/19 06:59 06:59 06:59 Weight 66.678 kg General appearance: PRESENT: no acute distress, well-developed, well-nourished Head exam: PRESENT: atraumatic, normocephalic Eye exam: PRESENT: conjunctiva pink, EOMI, PERRLA. ABSENT: scleral icterus Ear exam: PRESENT: normal external ear exam Mouth exam: PRESENT: moist, tongue midline Neck exam: PRESENT: full ROM. ABSENT: carotid bruit, JVD, lymphadenopathy, thyromegaly Respiratory exam: PRESENT: decreased breath sounds Cardiovascular exam: PRESENT: RRR. ABSENT: diastolic murmur, rubs, systolic murmur Pulses: PRESENT: normal dorsalis pedis pul, +2 pedal pulses bilateral Vascular exam: PRESENT: normal capillary refill GI/Abdominal exam: PRESENT: normal bowel sounds, soft. ABSENT: distended, guarding, mass, organolmegaly, rebound, tenderness Rectal exam: PRESENT: deferred Neurological exam: PRESENT: alert, awake, oriented to person, oriented to place, oriented to time, oriented to situation, CN II-XII grossly intact. ABSENT: motor sensory deficit Psychiatric exam: PRESENT: appropriate affect, normal mood. ABSENT: homicidal ideation, suicidal ideation Skin exam: PRESENT: dry, intact, warm. ABSENT: cyanosis, rash Results Laboratory Results: 06/20/19 07:18 06/20/19 07:18 06/20/19 06/20/19 06/20/19 07:18 07:18 09:37 WBC 8.5 RBC 3.20 L Hgb 9.7 L Hct 29.3 L MCV 92 MCH 30.4 MCHC 33.2 RDW 14.4 H Plt Count 314 Seg Neutrophils % 80.5 H Carbonic Acid 2.40 H HCO3/H2CO3 Ratio 17:1 ABG pH 7.34 L ABG pCO2 79.9 H* ABG pO2 49.8 L ABG HCO3 42.3 H ABG O2 Saturation 80.8 L ABG Base Excess 14.0 FiO2 40% Sodium 140.7 Potassium 3.9 Chloride 92 L Carbon Dioxide 40 H* Anion Gap 9 BUN 14 Creatinine 0.97 Est GFR ( Amer) > 60 Glucose 108 Calcium 9.3 Magnesium 2.0 Total Bilirubin 0.8 AST 19 Alkaline Phosphatase 91 Total Protein 7.2 Albumin 3.5 06/20/19 06/20/19 07:18 07:18 Creatine Kinase 34 Troponin I < 0.012 Impressions: Chest X-Ray 06/20/19 07:25 IMPRESSION: Low inspiratory lung volumes with upper lobe predominant emphysema and basilar predominant patchy opacities that could be chronic. There is no focal consolidation, sizable pleural effusion or pneumothorax. Assessment & Plan - Diagnosis (1) Acute hypercapnic respiratory failure Is this a current diagnosis for this admission?: Yes Plan: Put the patient on the BiPAP consult the pulmonary (2) CHF (congestive heart failure) Qualifiers: Heart failure type: diastolic Heart failure chronicity: chronic Qualified Code(s): I50.32 - Chronic diastolic (congestive) heart failure Is this a current diagnosis for this admission?: Yes Plan: Continues the p.o. Lasix (3) COPD (chronic obstructive pulmonary disease) Qualifiers: COPD type: unspecified COPD Is this a current diagnosis for this admission?: Yes Plan: Continues on nebulizer treatments (4) Chronic respiratory failure Qualifiers: Respiratory failure complication: hypoxia and hypercapnia Qualified Code( s): J96.11 - Chronic respiratory failure with hypoxia; J96.12 - Chronic respiratory failure with hypercapnia Is this a current diagnosis for this admission?: Yes Plan: Patient's needs to use the trilogy machines we will asked Dr. Vasquez to further evaluate probably patient issue with the mask (5) Moderate to severe pulmonary hypertension Is this a current diagnosis for this admission?: Yes Plan: Continues the Viagra (6) Noncompliance Is this a current diagnosis for this admission?: Yes - Time Time Spent: 30 to 50 Minutes Medications reviewed and adjusted accordingly: Yes Anticipated discharge: Home with Homehealth Within: Other - Inpatient Certification Based on my medical assessment, after consideration of the patient's comorbidities, presenting symptoms, or acuity I expect that the services needed warrant INPATIENT care.: Yes I certify that my determination is in accordance with my understanding of Medicare's requirements for reasonable and necessary INPATIENT services [42 CFR 412.3e].: Yes Medical Necessity: Significant Comorbidiites Make Outpatient Treatment Too Risky, Need Close Monitoring Due to Risk of Patient Decompensation, Need For Continuous Telemetry Monitoring, Need for Nebulizer Therapy and Monitoring of Response Post Hospital Care: 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
[2019-06-20] MEDS ORDERED: INFLUENZA QUAD (6MOS+) 2019-20 VAC 0.5 ML SYR IM ONE (15:09)
[2019-06-20] MEDS: BUSPIRONE HCL 10 MG TABLET PO SCH ×2 (16:00→21:22)
[2019-06-20] MEDS: DOCUSATE SODIUM 100 MG CAPSULE PO SCH (17:10)
[2019-06-20] MEDS: SILDENAFIL CITRATE 20 MG TABLET PO SCH (17:10)
[2019-06-20] MEDS: BUDESONIDE NEB 0.5 MG/2 ML AMPUL NEB SCH (19:06)
[2019-06-20] MEDS: FAMOTIDINE 20 MG TABLET PO SCH (21:21)
[2019-06-20] MEDS: CARVEDILOL 6.25 MG TABLET PO SCH (21:22)
[2019-06-20] MEDS: ALPRAZOLAM 0.5 MG TABLET PO PRN (23:29)
[2019-06-21 04:53] LABS: HEMATOCRIT 27.9 % (36.0-47.0); HEMOGLOBIN 9.4 g/dL (12.0-15.5); MEAN CORPUSCULAR HEMOGLOBIN 30.6 pg (27.0-33.4); MEAN CORPUSCULAR HGB CONC 33.7 g/dL (32.0-36.0); MEAN CORPUSCULAR VOLUME 91 fl (80-97); PLATELET COUNT 330 10^3/uL (150-450); RED BLOOD COUNT 3.08 10^6/uL (3.72-5.28); RED CELL DISTRIBUTION WIDTH 14.9 % (11.5-14.0); WHITE BLOOD COUNT 10.4 10^3/uL (4.0-10.5)
[2019-06-21 05:09] LABS: ALBUMIN 3.5 g/dL (3.5-5.0); ALKALINE PHOSPHATASE 80 U/L (38-126); ASPARTATE AMINO TRANSFERASE 16 U/L (14-36); BILIRUBIN,TOTAL 0.4 mg/dL (0.2-1.3); BLOOD UREA NITROGEN 14 mg/dL (7-20); CALCIUM 9.2 mg/dL (8.4-10.2); CHLORIDE 94 mmol/L (98-107); GLUCOSE 115 mg/dL (75-110); POTASSIUM 3.9 mmol/L (3.6-5.0); TOTAL PROTEIN 6.9 g/dL (6.3-8.2)
[2019-06-21 05:16] LABS: CARBON DIOXIDE 39 mmol/L (22-30)
[2019-06-21 05:17] LABS: ANION GAP 4 (5-19)
[2019-06-21 05:30] LABS: ABSOLUTE LYMPHOCYTES# (MANUAL) 0.6 10^3/uL (0.5-4.7); ABSOLUTE MONOCYTES # (MANUAL) 0.5 10^3/uL (0.1-1.4); BAND NEUTROPHILS % (MANUAL) 2 % (3-5); BASOPHILS % (MANUAL) 1 % (0-2); EOSINOPHILS % (MANUAL) 0 % (0-6); LYMPHOCYTES % (MANUAL) 6 % (13-45); MONOCYTES % (MANUAL) 5 % (3-13); SEGMENTED NEUTROPHILS % (MAN) 86 % (42-78); TOTAL CELLS COUNTED 100
[2019-06-21] MEDS: BUSPIRONE HCL 10 MG TABLET PO SCH ×3 (05:30→22:30)
[2019-06-21 05:31] LABS: ANISOCYTOSIS SLIGHT
[2019-06-21 05:32] LABS: PLATELET COMMENT ADEQUATE
[2019-06-21 05:49] LABS: ARTERIAL BLOOD BASE EXCESS 13.2 mmol/L; ARTERIAL BLOOD H2CO3 2.33 mmol/L (1.05-1.35); ARTERIAL BLOOD HCO3 41.4 mmol/L (20-24); ARTERIAL BLOOD O2 SATURATION 95.3 % (94-98); ARTERIAL BLOOD PH 7.35 (7.35-7.45); ARTERIAL BLOOD PO2 84.2 mmHg (80-100); ARTERIAL BLOOD TOTAL CO2 43.8 mmol/L (21-25)
[2019-06-21 05:55] LABS: ARTERIAL BLOOD FIO2 40%; ARTERIAL BLOOD PCO2 77.4 mmHg (35-45)
[2019-06-21] MEDS: IPRATROPIUM/ALBUTEROL 0.5-2.5 MG/3 ML AMPUL NEB SCH ×4 (07:58→20:25)
[2019-06-21] MEDS: BUDESONIDE NEB 0.5 MG/2 ML AMPUL NEB SCH ×2 (07:58→20:25)
[2019-06-21] MEDS: SILDENAFIL CITRATE 20 MG TABLET PO SCH ×3 (08:20→17:19)
[2019-06-21] MEDS: FLUTICASONE/UMECLIDIN/VILANTER 100-62.5-25 MCG/DOSE IH SCH (10:11)
[2019-06-21] MEDS: ENOXAPARIN SODIUM INJ 40 MG/0.4 ML DISP.SYRIN SUBCUT SCH (10:12)
[2019-06-21] MEDS: CARVEDILOL 6.25 MG TABLET PO SCH ×2 (10:12→22:30)
[2019-06-21] MEDS: FUROSEMIDE 20 MG TABLET PO SCH (10:13)
[2019-06-21] MEDS: DIGOXIN 0.25 MG TABLET PO SCH (10:13)
[2019-06-21] MEDS: DOCUSATE SODIUM 100 MG CAPSULE PO SCH ×2 (10:13→17:19)
[2019-06-21] MEDS: ESCITALOPRAM OXALATE 10 MG TABLET PO SCH (10:14)
[2019-06-21] MEDS: FAMOTIDINE 20 MG TABLET PO SCH ×2 (10:14→22:30)
--- NOTE | 2019-06-21 17:54 | PDOC PROGRESS REPORT ---
Subjective Progress Note for:: 06/21/19 Subjective:: Patient denied any chest pain. Remain on BiPAP support. No fever or chills. No nausea, vomiting, or abdominal pain. Reason For Visit: COPD EXACERBATION Physical Exam Vital Signs: Temp Pulse Resp BP Pulse Ox 98.0 F 73 16 103/50 L 94 06/21/19 15:17 06/21/19 16:12 06/21/19 16:12 06/21/19 15:17 06/21/19 16:12 Intake & Output 06/20/19 06/21/19 06/22/19 06:59 06:59 06:59 Intake Total 1040 Balance 1040 Weight 67.2 kg General appearance: PRESENT: mild distress - on BiPAP support. Head exam: PRESENT: atraumatic, normocephalic Eye exam: PRESENT: conjunctiva pink, PERRLA. ABSENT: scleral icterus Ear exam: PRESENT: normal external ear exam Mouth exam: PRESENT: moist Respiratory exam: PRESENT: clear to auscultation bianca Cardiovascular exam: PRESENT: RRR. ABSENT: diastolic murmur, rubs, systolic murmur Vascular exam: ABSENT: pallor GI/Abdominal exam: PRESENT: normal bowel sounds, soft. ABSENT: distended, guarding, mass, organolmegaly, rebound, tenderness Extremities exam: ABSENT: pedal edema Neurological exam: PRESENT: alert, awake, oriented to person, oriented to place, oriented to time, oriented to situation, CN II-XII grossly intact. ABSENT: motor sensory deficit Psychiatric exam: PRESENT: appropriate affect, normal mood. ABSENT: homicidal ideation, suicidal ideation Skin exam: PRESENT: dry, warm Results Laboratory Results: 06/21/19 04:11 06/21/19 04:11 06/21/19 06/21/19 06/21/19 04:11 04:11 05:34 WBC 10.4 RBC 3.08 L Hgb 9.4 L Hct 27.9 L MCV 91 MCH 30.6 MCHC 33.7 RDW 14.9 H Plt Count 330 Seg Neutrophils % Not Reportable Carbonic Acid 2.33 H HCO3/H2CO3 Ratio 17:1 ABG pH 7.35 ABG pCO2 77.4 H* ABG pO2 84.2 ABG HCO3 41.4 H ABG O2 Saturation 95.3 ABG Base Excess 13.2 FiO2 40% Sodium 136.8 L Potassium 3.9 Chloride 94 L Carbon Dioxide 39 H Anion Gap 4 L BUN 14 Creatinine 0.93 Est GFR ( Amer) > 60 Glucose 115 H Calcium 9.2 Total Bilirubin 0.4 AST 16 Alkaline Phosphatase 80 Total Protein 6.9 Albumin 3.5 06/20/19 06/20/19 07:18 07:18 Creatine Kinase 34 Troponin I < 0.012 Impressions: Chest X-Ray 06/20/19 07:25 IMPRESSION: Low inspiratory lung volumes with upper lobe predominant emphysema and basilar predominant patchy opacities that could be chronic. There is no focal consolidation, sizable pleural effusion or pneumothorax. Assessment & Plan - Diagnosis (1) Acute hypercapnic respiratory failure Is this a current diagnosis for this admission?: Yes Plan: Continue BiPAP support and emphasized to patient compliance with usage during my bedside visit today. (2) COPD (chronic obstructive pulmonary disease) Qualifiers: COPD type: unspecified COPD Is this a current diagnosis for this admission?: Yes Plan: Continue current medication management. (3) Hypertension Qualifiers: Hypertension type: essential hypertension Qualified Code(s): I10 - Essential (primary) hypertension Is this a current diagnosis for this admission?: Yes Plan: Maintain on current medication management. (4) Moderate to severe pulmonary hypertension Is this a current diagnosis for this admission?: Yes Plan: Continue current medication management. - Time Time Spent with patient: 25-34 minutes Level of Care: IMCU Medications reviewed and adjusted accordingly: Yes Anticipated discharge: Home with Homehealth Within: Other - Inpatient Certification Based on my medical assessment, after consideration of the patient's comorbidities, presenting symptoms, or acuity I expect that the services needed warrant INPATIENT care.: Yes I certify that my determination is in accordance with my understanding of [facility]s requirements for reasonable and necessary INPATIENT services [42 CFR 412.3e].: Yes Medical Necessity: Significant Comorbidiites Make Outpatient Treatment Too Risky, Need Close Monitoring Due to Risk of Patient Decompensation, Need For Continuous Telemetry Monitoring, Need for Nebulizer Therapy and Monitoring of Response, Risk of Complication if Not Cared For in Hospital, Risk of Diagnosis Which Will Require Inpatient Eval/Care/Monitoring 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 Obtain ABG, CMP, CBC with diff in AM.
[2019-06-22] MEDS: ALPRAZOLAM 0.5 MG TABLET PO PRN (01:41)
[2019-06-22 04:57] LABS: ABSOLUTE BASOPHILS # (AUTO) 0.1 10^3/uL (0.0-0.2); ABSOLUTE EOSINOPHILS # (AUTO) 0.2 10^3/uL (0.0-0.6); ABSOLUTE LYMPHOCYTES (AUTO) 1.1 10^3/uL (0.5-4.7); ABSOLUTE MONOCYTES (AUTO) 0.8 10^3/uL (0.1-1.4); ABSOLUTE NEUT (AUTO) 5.4 10^3/uL (1.7-8.2); BASOPHILS % (AUTO) 0.8 % (0-2); EOSINOPHILS % (AUTO) 3.3 % (0-6); HEMATOCRIT 26.1 % (36.0-47.0); HEMOGLOBIN 8.8 g/dL (12.0-15.5); LYMPHOCYTES % (AUTO) 14.8 % (13-45); MEAN CORPUSCULAR HEMOGLOBIN 30.7 pg (27.0-33.4); MEAN CORPUSCULAR HGB CONC 33.8 g/dL (32.0-36.0); MEAN CORPUSCULAR VOLUME 91 fl (80-97); MONOCYTES % (AUTO) 10.4 % (3-13); PLATELET COUNT 329 10^3/uL (150-450); RED BLOOD COUNT 2.87 10^6/uL (3.72-5.28); RED CELL DISTRIBUTION WIDTH 14.6 % (11.5-14.0); SEGMENTED NEUTROPHILS % (AUTO) 70.7 % (42-78); TOTAL CELLS COUNTED % (AUTO) 100 %; WHITE BLOOD COUNT 7.6 10^3/uL (4.0-10.5)
[2019-06-22 05:21] LABS: ALBUMIN 2.9 g/dL (3.5-5.0); ALKALINE PHOSPHATASE 64 U/L (38-126); ASPARTATE AMINO TRANSFERASE 14 U/L (14-36); BILIRUBIN,DIRECT 0.3 mg/dL (0.0-0.4); BILIRUBIN,TOTAL 0.3 mg/dL (0.2-1.3); BLOOD UREA NITROGEN 22 mg/dL (7-20); CALCIUM 8.9 mg/dL (8.4-10.2); CHLORIDE 94 mmol/L (98-107); GLUCOSE 79 mg/dL (75-110); POTASSIUM 3.8 mmol/L (3.6-5.0); TOTAL PROTEIN 5.9 g/dL (6.3-8.2)
[2019-06-22 05:32] LABS: ANION GAP 4 (5-19)
[2019-06-22 05:34] LABS: CARBON DIOXIDE 40 mmol/L (22-30)
[2019-06-22 06:14] LABS: ARTERIAL BLOOD BASE EXCESS 18.3 mmol/L; ARTERIAL BLOOD H2CO3 2.63 mmol/L (1.05-1.35); ARTERIAL BLOOD O2 SATURATION 72.1 % (94-98); ARTERIAL BLOOD PH 7.35 (7.35-7.45); ARTERIAL BLOOD PO2 42.5 mmHg (80-100); ARTERIAL BLOOD TOTAL CO2 49.7 mmol/L (21-25)
[2019-06-22 06:15] LABS: ARTERIAL BLOOD FIO2 40%
[2019-06-22 06:17] LABS: ARTERIAL BLOOD PCO2 87.5 mmHg (35-45)
[2019-06-22] MEDS: BUSPIRONE HCL 10 MG TABLET PO SCH ×3 (06:42→21:29)
[2019-06-22 07:00] LABS: ARTERIAL BLOOD H2CO3 2.28 mmol/L (1.05-1.35); ARTERIAL BLOOD O2 SATURATION 94.6 % (94-98); ARTERIAL BLOOD PH 7.36 (7.35-7.45); ARTERIAL BLOOD PO2 78.7 mmHg (80-100); ARTERIAL BLOOD TOTAL CO2 44.4 mmol/L (21-25)
[2019-06-22 07:05] LABS: ARTERIAL BLOOD FIO2 40%
[2019-06-22 07:07] LABS: ARTERIAL BLOOD PCO2 75.6 mmHg (35-45)
[2019-06-22] MEDS: SILDENAFIL CITRATE 20 MG TABLET PO SCH ×3 (08:01→17:08)
[2019-06-22] MEDS: BUDESONIDE NEB 0.5 MG/2 ML AMPUL NEB SCH ×2 (08:06→21:05)
[2019-06-22] MEDS: IPRATROPIUM/ALBUTEROL 0.5-2.5 MG/3 ML AMPUL NEB SCH ×4 (08:06→21:05)
[2019-06-22] MEDS: ESCITALOPRAM OXALATE 10 MG TABLET PO SCH (09:33)
[2019-06-22] MEDS: CARVEDILOL 6.25 MG TABLET PO SCH ×2 (09:33→21:29)
[2019-06-22] MEDS: DIGOXIN 0.25 MG TABLET PO SCH (09:34)
[2019-06-22] MEDS: DOCUSATE SODIUM 100 MG CAPSULE PO SCH ×2 (09:34→17:08)
[2019-06-22] MEDS: FAMOTIDINE 20 MG TABLET PO SCH ×2 (09:34→21:29)
[2019-06-22] MEDS: FUROSEMIDE 20 MG TABLET PO SCH (09:34)
[2019-06-22] MEDS: FLUTICASONE/UMECLIDIN/VILANTER 100-62.5-25 MCG/DOSE IH SCH (09:36)
[2019-06-22] MEDS: ENOXAPARIN SODIUM INJ 40 MG/0.4 ML DISP.SYRIN SUBCUT SCH (09:36)
--- NOTE | 2019-06-22 16:09 | PDOC PROGRESS REPORT ---
Subjective Progress Note for:: 06/22/19 Subjective:: Patient remain on BiPAP support due to persistent hypercapnia. She tequila mostly awake all night and sleep during the day as per nursing report. She denied any chest pain. No fever or chills. No nausea, vomiting, or abdominal pain. Reason For Visit: COPD EXACERBATION Physical Exam Vital Signs: Temp Pulse Resp BP Pulse Ox 97.5 F 70 17 103/40 L 96 06/22/19 11:00 06/22/19 14:00 06/22/19 11:23 06/22/19 11:00 06/22/19 11:23 Intake & Output 06/21/19 06/22/19 06/23/19 06:59 06:59 06:59 Intake Total 1040 720 Output Total 150 100 Balance 890 620 Weight 67.2 kg 66.6 kg Physical Exam: General appearance: PRESENT: mild distress - on BiPAP support. Head exam: PRESENT: atraumatic, normocephalic Eye exam: PRESENT: conjunctiva pink, PERRLA. ABSENT: pallor, scleral icterus Ear exam: PRESENT: normal external ear exam Mouth exam: PRESENT: moist Respiratory exam: PRESENT: clear to auscultation bianca Cardiovascular exam: PRESENT: RRR. ABSENT: diastolic murmur, rubs, systolic murmur GI/Abdominal exam: PRESENT: normal bowel sounds, soft. ABSENT: distended, guarding, mass, organomegaly, rebound, tenderness Extremities exam: ABSENT: pedal edema Neurological exam: PRESENT: alert, awake, oriented to person, oriented to place, oriented to time, oriented to situation, CN II-XII grossly intact. ABSENT: motor sensory deficit Psychiatric exam: PRESENT: appropriate affect, normal mood. ABSENT: homicidal ideation, suicidal ideation Skin exam: PRESENT: dry, warm Results Laboratory Results: 06/22/19 04:23 06/22/19 04:23 06/22/19 06/22/19 06/22/19 04:23 04:23 06:03 WBC 7.6 RBC 2.87 L Hgb 8.8 L Hct 26.1 L MCV 91 MCH 30.7 MCHC 33.8 RDW 14.6 H Plt Count 329 Seg Neutrophils % 70.7 Carbonic Acid 2.63 H HCO3/H2CO3 Ratio 17:1 ABG pH 7.35 ABG pCO2 87.5 H* ABG pO2 42.5 L ABG HCO3 47.0 H ABG O2 Saturation 72.1 L ABG Base Excess 18.3 FiO2 40% Sodium 137.9 Potassium 3.8 Chloride 94 L Carbon Dioxide 40 H* Anion Gap 4 L BUN 22 H Creatinine 1.16 Est GFR ( Amer) 57 L Glucose 79 Calcium 8.9 Magnesium 2.1 Total Bilirubin 0.3 AST 14 Alkaline Phosphatase 64 Total Protein 5.9 L Albumin 2.9 L 06/22/19 06:35 WBC RBC Hgb Hct MCV MCH MCHC RDW Plt Count Seg Neutrophils % Carbonic Acid 2.28 H HCO3/H2CO3 Ratio 18:1 ABG pH 7.36 ABG pCO2 75.6 H* ABG pO2 78.7 L ABG HCO3 42.0 H ABG O2 Saturation 94.6 ABG Base Excess 14.0 FiO2 40% Sodium Potassium Chloride Carbon Dioxide Anion Gap BUN Creatinine Est GFR ( Amer) Glucose Calcium Magnesium Total Bilirubin AST Alkaline Phosphatase Total Protein Albumin 06/20/19 06/20/19 07:18 07:18 Creatine Kinase 34 Troponin I < 0.012 Impressions: Chest X-Ray 06/20/19 07:25 IMPRESSION: Low inspiratory lung volumes with upper lobe predominant emphysema and basilar predominant patchy opacities that could be chronic. There is no focal consolidation, sizable pleural effusion or pneumothorax. Assessment & Plan - Diagnosis (1) Acute hypercapnic respiratory failure Is this a current diagnosis for this admission?: Yes (2) COPD (chronic obstructive pulmonary disease) Qualifiers: COPD type: unspecified COPD Is this a current diagnosis for this admission?: Yes (3) Hypertension Qualifiers: Hypertension type: essential hypertension Qualified Code(s): I10 - Essential (primary) hypertension Is this a current diagnosis for this admission?: Yes (4) Moderate to severe pulmonary hypertension Is this a current diagnosis for this admission?: Yes - Time Time Spent with patient: 25-34 minutes Level of Care: IMCU Medications reviewed and adjusted accordingly: Yes Anticipated discharge: Home with Homehealth Within: Other - Inpatient Certification Based on my medical assessment, after consideration of the patient's comorbidities, presenting symptoms, or acuity I expect that the services needed warrant INPATIENT care.: Yes I certify that my determination is in accordance with my understanding of Medicare's requirements for reasonable and necessary INPATIENT services [42 CFR 412.3e].: Yes Medical Necessity: Significant Comorbidiites Make Outpatient Treatment Too Risky, Need Close Monitoring Due to Risk of Patient Decompensation, Need For IV Fluids, Need For Continuous Telemetry Monitoring, Need for IV Antibiotics, Risk of Complication if Not Cared For in Hospital, Risk of Diagnosis Which Will Require Inpatient Eval/Care/Monitoring Post Hospital Care: D/C [employer] 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 Continue other current medication management.
[2019-06-22] MEDS: ACETAZOLAMIDE 250 MG TABLET PO SCH (21:29)
[2019-06-23] MEDS: ALPRAZOLAM 0.5 MG TABLET PO PRN (00:48)
[2019-06-23 06:27] LABS: ABSOLUTE BASOPHILS # (AUTO) 0.1 10^3/uL (0.0-0.2); ABSOLUTE EOSINOPHILS # (AUTO) 0.3 10^3/uL (0.0-0.6); ABSOLUTE MONOCYTES (AUTO) 0.8 10^3/uL (0.1-1.4); ABSOLUTE NEUT (AUTO) 5.5 10^3/uL (1.7-8.2); BASOPHILS % (AUTO) 0.7 % (0-2); EOSINOPHILS % (AUTO) 4.4 % (0-6); HEMATOCRIT 26.6 % (36.0-47.0); HEMOGLOBIN 8.8 g/dL (12.0-15.5); MEAN CORPUSCULAR HEMOGLOBIN 30.7 pg (27.0-33.4); MEAN CORPUSCULAR HGB CONC 33.3 g/dL (32.0-36.0); MEAN CORPUSCULAR VOLUME 92 fl (80-97); MONOCYTES % (AUTO) 10.9 % (3-13); PLATELET COUNT 343 10^3/uL (150-450); RED BLOOD COUNT 2.88 10^6/uL (3.72-5.28); RED CELL DISTRIBUTION WIDTH 14.9 % (11.5-14.0); TOTAL CELLS COUNTED % (AUTO) 100 %; WHITE BLOOD COUNT 7.7 10^3/uL (4.0-10.5)
[2019-06-23] MEDS: BUSPIRONE HCL 10 MG TABLET PO SCH ×3 (06:50→22:10)
[2019-06-23] MEDS: IPRATROPIUM/ALBUTEROL 0.5-2.5 MG/3 ML AMPUL NEB SCH ×4 (08:07→20:28)
[2019-06-23] MEDS: BUDESONIDE NEB 0.5 MG/2 ML AMPUL NEB SCH ×2 (08:07→20:28)
[2019-06-23] MEDS: SILDENAFIL CITRATE 20 MG TABLET PO SCH ×3 (08:27→17:57)
--- NOTE | 2019-06-23 09:06 | PDOC PROGRESS REPORT ---
Subjective Progress Note for:: 06/23/19 Subjective:: Patient is currently doing well Patient's denied any chest pain no short of breath Patient hemoglobin is 8.8 denied any blood in the stools no black stools Reason For Visit: COPD EXACERBATION Physical Exam Vital Signs: Temp Pulse Resp BP Pulse Ox 97.5 F 85 28 H 108/59 L 97 06/22/19 19:59 06/23/19 02:00 06/23/19 00:00 06/22/19 19:59 06/22/19 21:05 Intake & Output 06/22/19 06/23/19 06/24/19 06:59 06:59 06:59 Intake Total 1040 960 Output Total 150 400 Balance 890 560 Weight 66.6 kg 69.3 kg General appearance: PRESENT: no acute distress, well-developed, well-nourished Head exam: PRESENT: atraumatic, normocephalic Eye exam: PRESENT: conjunctiva pink, EOMI, PERRLA. ABSENT: scleral icterus Ear exam: PRESENT: normal external ear exam Mouth exam: PRESENT: moist, tongue midline Neck exam: PRESENT: full ROM. ABSENT: carotid bruit, JVD, lymphadenopathy, thyromegaly Respiratory exam: PRESENT: clear to auscultation bianca Cardiovascular exam: PRESENT: RRR. ABSENT: diastolic murmur, rubs, systolic murmur Pulses: PRESENT: normal dorsalis pedis pul, +2 pedal pulses bilateral Vascular exam: PRESENT: normal capillary refill GI/Abdominal exam: PRESENT: normal bowel sounds, soft. ABSENT: distended, guarding, mass, organolmegaly, rebound, tenderness Rectal exam: PRESENT: deferred Neurological exam: PRESENT: alert, awake, oriented to person, oriented to place, oriented to time, oriented to situation, CN II-XII grossly intact. ABSENT: motor sensory deficit Psychiatric exam: PRESENT: appropriate affect, normal mood. ABSENT: homicidal ideation, suicidal ideation Skin exam: PRESENT: dry, intact, warm. ABSENT: cyanosis, rash Results Laboratory Results: 06/23/19 06:02 06/22/19 04:23 06/23/19 06:02 WBC 7.7 RBC 2.88 L Hgb 8.8 L Hct 26.6 L MCV 92 MCH 30.7 MCHC 33.3 RDW 14.9 H Plt Count 343 Seg Neutrophils % 71.0 02/14/20 02/14/20 07:18 07:18 Creatine Kinase 34 Troponin I < 0.012 Impressions: Chest X-Ray 06/20/19 07:25 IMPRESSION: Low inspiratory lung volumes with upper lobe predominant emphysema and basilar predominant patchy opacities that could be chronic. There is no focal consolidation, sizable pleural effusion or pneumothorax. Assessment & Plan - Diagnosis (1) Acute hypercapnic respiratory failure Is this a current diagnosis for this admission?: Yes Plan: Continues to use the BiPAP's (2) CHF (congestive heart failure) Qualifiers: Heart failure type: diastolic Heart failure chronicity: chronic Qualified Code(s): I50.32 - Chronic diastolic (congestive) heart failure Is this a current diagnosis for this admission?: Yes Plan: Continues to use the Lasix (3) COPD (chronic obstructive pulmonary disease) Qualifiers: COPD type: unspecified COPD Is this a current diagnosis for this admission?: Yes Plan: Continues to current medications (4) Chronic respiratory failure Qualifiers: Respiratory failure complication: hypoxia and hypercapnia Qualified Code(s): J96.11 - Chronic respiratory failure with hypoxia; J96.12 - Chronic respiratory failure with hypercapnia Is this a current diagnosis for this admission?: Yes (5) Moderate to severe pulmonary hypertension Is this a current diagnosis for this admission?: Yes Plan: Continues to use the Viagra (6) Noncompliance Is this a current diagnosis for this admission?: Yes - Time Time Spent with patient: 15-24 minutes Level of Care: IMCU Medications reviewed and adjusted accordingly: Yes Anticipated discharge: Home with Homehealth Within: Other - Plan Summary Plan Summary: We will get the iron study
[2019-06-23 09:17] LABS: ABSOLUTE RETICS # 0.082 10^6/uL (0.028-0.122); RETICULOCYTE COUNT (AUTO) 2.79 % (0.66-2.85)
[2019-06-23 09:47] LABS: IRON(TIBC) 31.4 ug/dL (37-170)
[2019-06-23 10:53] LABS: FOLATE 4.08 ng/mL (>2.76)
[2019-06-23] MEDS: FLUTICASONE/UMECLIDIN/VILANTER 100-62.5-25 MCG/DOSE IH SCH (11:22)
[2019-06-23] MEDS: FUROSEMIDE 20 MG TABLET PO SCH (11:23)
[2019-06-23] MEDS: DOCUSATE SODIUM 100 MG CAPSULE PO SCH ×2 (11:23→17:57)
[2019-06-23] MEDS: ACETAZOLAMIDE 250 MG TABLET PO SCH ×2 (11:24→22:10)
[2019-06-23] MEDS: FAMOTIDINE 20 MG TABLET PO SCH ×2 (11:24→22:10)
[2019-06-23] MEDS: CARVEDILOL 6.25 MG TABLET PO SCH ×2 (11:24→22:10)
[2019-06-23] MEDS: ESCITALOPRAM OXALATE 10 MG TABLET PO SCH (11:24)
[2019-06-23] MEDS: DIGOXIN 0.25 MG TABLET PO SCH (11:24)
[2019-06-23] MEDS: ENOXAPARIN SODIUM INJ 40 MG/0.4 ML DISP.SYRIN SUBCUT SCH (11:25)
[2019-06-24] MEDS: BUSPIRONE HCL 10 MG TABLET PO SCH (05:21)
[2019-06-24] MEDS: SILDENAFIL CITRATE 20 MG TABLET PO SCH (08:23)
[2019-06-24] MEDS: BUDESONIDE NEB 0.5 MG/2 ML AMPUL NEB SCH (08:52)
[2019-06-24] MEDS: IPRATROPIUM/ALBUTEROL 0.5-2.5 MG/3 ML AMPUL NEB SCH (08:52)
[2019-06-24] MEDS: CARVEDILOL 6.25 MG TABLET PO SCH (09:14)
[2019-06-24] MEDS: DOCUSATE SODIUM 100 MG CAPSULE PO SCH (09:14)
[2019-06-24] MEDS: ESCITALOPRAM OXALATE 10 MG TABLET PO SCH (09:14)
[2019-06-24] MEDS: DIGOXIN 0.25 MG TABLET PO SCH (09:14)
[2019-06-24] MEDS: FUROSEMIDE 20 MG TABLET PO SCH (09:15)
[2019-06-24] MEDS: ACETAZOLAMIDE 250 MG TABLET PO SCH (09:15)
[2019-06-24] MEDS: FAMOTIDINE 20 MG TABLET PO SCH (09:19)
[2019-06-24] MEDS: FLUTICASONE/UMECLIDIN/VILANTER 100-62.5-25 MCG/DOSE IH SCH (09:19)
[2019-06-24 09:29] VITALS: BP 148/77
--- NOTE | 2019-06-24 09:57 | PDOC DISCHARGE SUMMARY ---
Impression - Admit/DC Date/PCP Admission Date/Primary Care Provider: 06/20/19 10:37 DANIAL HALL MD Discharge Date: 06/24/19 - Discharge Diagnosis (1) Acute hypercapnic respiratory failure Is this a current diagnosis for this admission?: Yes (2) CHF (congestive heart failure) Is this a current diagnosis for this admission?: Yes (3) COPD (chronic obstructive pulmonary disease) Is this a current diagnosis for this admission?: Yes (4) Chronic respiratory failure Is this a current diagnosis for this admission?: Yes (5) Moderate to severe pulmonary hypertension Is this a current diagnosis for this admission?: Yes (6) Noncompliance Is this a current diagnosis for this admission?: Yes (7) Iron deficiency anemia Is this a current diagnosis for this admission?: Yes - Additional Information Resuscitation Status: Full Code Discharge Diet: Regular Discharge Activity: Activity As Tolerated, Balance Activity w/Rest Referrals: ORALIA MOORE MD [ACTIVE STAFF] - 07/01/19 1:00 pm STEWART MCINTYRE MD [ACTIVE STAFF] - 07/14/19 3:00 pm DANIAL HALL MD [Primary Care Provider] - 06/30/19 10:30 am (f/u with dr moore make appt to see dr chowdhury for anemia ) Prescriptions: Acetazolamide [Diamox 250 mg Tab] 250 mg PO Q12 #60 tablet Ferrous Sulfate [Feosol 325 mg Tablet] 325 mg PO DAILY #30 tab Cyanocobalamin (Vitamin B-12) [Vitamin B-12 1000 mcg Tablet] 1,000 mcg PO DAILY #30 tablet Home Medications: Albuterol Sulfate [Ventolin 0.083% Neb 2.5 mg/3 mL Ampul] 2.5 mg NEB RTQ6HP PRN 06/20/19 Budesonide [Pulmicort Neb 0.5 mg/2 ml Ampul] 0.5 mg NEB RTQ12 06/20/19 Buspirone HCl [Buspar 10 mg Tablet] 5 mg PO Q8 06/20/19 Carvedilol [Coreg 6.25 mg Tablet] 6.25 mg PO Q12 06/20/19 Digoxin [Lanoxin 0.25 mg Tablet] 0.25 mg PO DAILY 06/20/19 Docusate Sodium [Colace 100 mg Capsule] 100 mg PO BID 06/20/19 Escitalopram Oxalate [Lexapro] 5 mg PO DAILY 06/20/19 Fluticasone/Umeclidin/Vilanter [Trelegy 100-62.5-25 Mcg Ellipta 14 Dose/Dpi] 1 puff IH DAILY 06/20/19 Furosemide [Lasix 20 mg Tablet] 20 mg PO DAILY 06/20/19 Sildenafil Citrate [Revatio 20 mg Tablet] 20 mg PO MEALS 06/20/19 Acetazolamide [Diamox 250 mg Tab] 250 mg PO Q12 #60 tablet 06/24/19 Cyanocobalamin (Vitamin B-12) [Vitamin B-12 1000 mcg Tablet] 1,000 mcg PO DAILY #30 tablet 06/24/19 Ferrous Sulfate [Feosol 325 mg Tablet] 325 mg PO DAILY #30 tab 06/24/19 History of Present Illiness History of Present Illness: CECILE BERRIOS is a 63 year old female Is a 63-year-old female's with history of the chronic respiratory failure history of 1 trilogy machines not using properly and is usable but he noncompliance and a history of severe pulmonary hypertension's diastolic congestive heart failure's anxiety disorders came to the emergency department with a complaint of increasing the shortness of the breath According to the patient's she tried to use the trilogy machine but the mask does not work very well Dr. Moore supposed to change the mask according to the patient did not happen yet and the patient did not use the machine patient's PCO2 as usual was 79 which is positive pretty much very close to the baseline Patient was put on a BiPAP is usually in the ER patients will better To admit the patient's try to utilize the trilogy machines with the fix the mask Hospital Course Hospital Course: 63-year-old female's with the chronic respiratory failure noncompliance with the machine came to the emergency department with a shortness of the breath because of the not availability of the mask on the trilogy machine patient admitting in the hospital put on the BiPAP and patients receive the trilogy machine already at night patient's also got the mass now patient otherwise remained stable Patient is also found anemic but no active bleeding patient's iron study with iron is low patient was put on a p.o. iron tablets and also patients probably need a GI evaluations as outpatient Patient is anxious to go home patient is back to the baseline again discussed with the patient's to continues to more follow-up with the trilogy machines Physical Exam Vital Signs: Temp Pulse Resp BP Pulse Ox 97.6 F 73 18 148/77 H 97 06/24/19 09:27 06/24/19 09:27 06/24/19 09:27 06/24/19 09:27 06/24/19 09:27 Intake & Output 06/23/19 06/24/19 06/25/19 06:59 06:59 06:59 Intake Total 960 818 Output Total 400 950 Balance 560 -132 Weight 69.3 kg 67.3 kg General appearance: PRESENT: no acute distress, well-developed, well-nourished Head exam: PRESENT: atraumatic, normocephalic Eye exam: PRESENT: conjunctiva pink, EOMI, PERRLA. ABSENT: scleral icterus Ear exam: PRESENT: normal external ear exam Mouth exam: PRESENT: moist, tongue midline Neck exam: ABSENT: carotid bruit, JVD, lymphadenopathy, thyromegaly Respiratory exam: PRESENT: clear to auscultation bianca. ABSENT: rales, rhonchi, wheezes Cardiovascular exam: PRESENT: RRR. ABSENT: diastolic murmur, rubs, systolic murmur Pulses: PRESENT: normal dorsalis pedis pul Vascular exam: PRESENT: normal capillary refill GI/Abdominal exam: PRESENT: normal bowel sounds, soft. ABSENT: distended, guarding, mass, organolmegaly, rebound, tenderness Rectal exam: PRESENT: deferred Extremities exam: PRESENT: full ROM. ABSENT: calf tenderness, clubbing, pedal edema Neurological exam: PRESENT: alert, awake, oriented to person, oriented to place, oriented to time, oriented to situation, CN II-XII grossly intact. ABSENT: motor sensory deficit Psychiatric exam: PRESENT: appropriate affect, normal mood. ABSENT: homicidal ideation, suicidal ideation Skin exam: PRESENT: dry, intact, warm. ABSENT: cyanosis, rash Results Laboratory Results: WBC 7.7 10^3/uL (4.0-10.5) 06/23/19 06:02 RBC 2.88 10^6/uL (3.72-5.28) L 06/23/19 06:02 Hgb 8.8 g/dL (12.0-15.5) L 06/23/19 06:02 Hct 26.6 % (36.0-47.0) L 06/23/19 06:02 MCV 92 fl (80-97) 06/23/19 06:02 MCH 30.7 pg (27.0-33.4) 06/23/19 06:02 MCHC 33.3 g/dL (32.0-36.0) 06/23/19 06:02 RDW 14.9 % (11.5-14.0) H 06/23/19 06:02 Plt Count 343 10^3/uL (150-450) 06/23/19 06:02 Lymph % (Auto) 13.0 % (13-45) 06/23/19 06:02 Mckenzie % (Auto) 10.9 % (3-13) 06/23/19 06:02 Eos % (Auto) 4.4 % (0-6) 06/23/19 06:02 Baso % (Auto) 0.7 % (0-2) 06/23/19 06:02 Reticulocyte # 0.082 10^6/uL (0.028-0.122) 06/23/19 06:02 Absolute Neuts (auto) 5.5 10^3/uL (1.7-8.2) 06/23/19 06:02 Absolute Lymphs (auto) 1.0 10^3/uL (0.5-4.7) 06/23/19 06:02 Absolute Monos (auto) 0.8 10^3/uL (0.1-1.4) 06/23/19 06:02 Absolute Eos (auto) 0.3 10^3/uL (0.0-0.6) 06/23/19 06:02 Absolute Basos (auto) 0.1 10^3/uL (0.0-0.2) 06/23/19 06:02 Total Counted 100 06/21/19 04:11 Seg Neutrophils % 71.0 % (42-78) 06/23/19 06:02 Seg Neuts % (Manual) 86 % (42-78) H 06/21/19 04:11 Band Neutrophils % 2 % (3-5) L 06/21/19 04:11 Lymphocytes % (Manual) 6 % (13-45) L 06/21/19 04:11 Monocytes % (Manual) 5 % (3-13) 06/21/19 04:11 Eosinophils % (Manual) 0 % (0-6) 06/21/19 04:11 Basophils % (Manual) 1 % (0-2) 06/21/19 04:11 Abs Neuts (Manual) 9.2 10^3/uL (1.7-8.2) H 06/21/19 04:11 Abs Lymphs (Manual) 0.6 10^3/uL (0.5-4.7) 06/21/19 04:11 Abs Monocytes (Manual) 0.5 10^3/uL (0.1-1.4) 06/21/19 04:11 Absolute Eos (Manual) 0.0 10^3/uL (0.0-0.6) 06/21/19 04:11 Abs Basophils (Manual) 0.1 10^3/uL (0.0-0.2) 06/21/19 04:11 Platelet Comment ADEQUATE 06/21/19 04:11 Anisocytosis SLIGHT 06/21/19 04:11 Retic Count (auto) 2.79 % (0.66-2.85) 06/23/19 06:02 Carbonic Acid 2.28 mmol/L (1.05-1.35) H 06/22/19 06:35 HCO3/H2CO3 Ratio 18:1 06/22/19 06:35 ABG pH 7.36 (7.35-7.45) 06/22/19 06:35 ABG pCO2 75.6 mmHg (35-45) H* 06/22/19 06:35 ABG pO2 78.7 mmHg (80-100) L 06/22/19 06:35 ABG HCO3 42.0 mmol/L (20-24) H 06/22/19 06:35 ABG Total CO2 44.4 mmol/L (21-25) H 06/22/19 06:35 ABG O2 Saturation 94.6 % (94-98) 06/22/19 06:35 ABG Base Excess 14.0 mmol/L 06/22/19 06:35 FiO2 40% 06/22/19 06:35 Sodium 137.9 mmol/L (137-145) 06/22/19 04:23 Potassium 3.8 mmol/L (3.6-5.0) 06/22/19 04:23 Chloride 94 mmol/L (98-107) L 06/22/19 04:23 Carbon Dioxide 40 mmol/L (22-30) H* 06/22/19 04:23 Anion Gap 4 (5-19) L 06/22/19 04:23 BUN 22 mg/dL (7-20) H 06/22/19 04:23 Creatinine 1.16 mg/dL (0.52-1.25) 06/22/19 04:23 Est GFR ( Amer) 57 (>60) L 06/22/19 04:23 Est GFR (MDRD) Non-Af 47 (>60) L 06/22/19 04:23 Glucose 79 mg/dL (75-110) 06/22/19 04:23 Calcium 8.9 mg/dL (8.4-10.2) 06/22/19 04:23 Magnesium 2.1 mg/dL (1.6-2.3) 06/22/19 04:23 Iron 31.4 ug/dL (37-170) L 06/23/19 06:02 TIBC 297 ug/dL (250-450) 06/23/19 06:02 % Saturation 11 % 06/23/19 06:02 Ferritin 47.30 ng/mL (11.1-264.0) 06/23/19 06:02 Total Bilirubin 0.3 mg/dL (0.2-1.3) 06/22/19 04:23 Direct Bilirubin 0.3 mg/dL (0.0-0.4) 06/22/19 04:23 Neonat Total Bilirubin Not Reportable 06/22/19 04:23 Neonat Direct Bilirubin Not Reportable 06/22/19 04:23 Neonat Indirect Bili Not Reportable 06/22/19 04:23 AST 14 U/L (14-36) 06/22/19 04:23 ALT 6 U/L (<35) 06/22/19 04:23 Alkaline Phosphatase 64 U/L (38-126) 06/22/19 04:23 Creatine Kinase 34 U/L (30-135) 06/20/19 07:18 Troponin I < 0.012 ng/mL 06/20/19 07:18 Total Protein 5.9 g/dL (6.3-8.2) L 06/22/19 04:23 Albumin 2.9 g/dL (3.5-5.0) L 06/22/19 04:23 Vitamin B12 343.0 pg/mL (239-931) 06/23/19 06:02 Folate 4.08 ng/mL (>2.76) 06/23/19 06:02 Digoxin 1.09 ng/mL (0.8-2.0) 06/20/19 07:18 06/20/19 07:18 Troponin I < 0.012 Impressions: Chest X-Ray 06/20/19 07:25 IMPRESSION: Low inspiratory lung volumes with upper lobe predominant emphysema and basilar predominant patchy opacities that could be chronic. There is no focal consolidation, sizable pleural effusion or pneumothorax. Plan Time Spent: Greater than 30 Minutes - Follow-up with the Dr. Moore's following office 1 week Stroke Is this a Stroke Patient?: No Acute Heart Failure - Is this a Heart Failure Patient?: No
[2019-06-24] MEDS ORDERED: CYANOCOBALAMIN (VITAMIN B-12) 1,000 MCG TABLET PO SCH (10:00)
== END 2019-06-24 09:40 | disposition home health service (06) | DRG 189 ==
LOC: ER 07:14 → EH 10:37 → 3W 14:30
PROVIDERS: ADMIT Family Medicine; ATTEND Family Medicine
PROC: 5A09357 Assistance with Respiratory Ventilation, Less than 24 Consecutive Hours, Continuous Positive Airway Pressure (ICD-10-PCS; principal; 2019-06-20)
PROC: 3E02340 Introduction of Influenza Vaccine into Muscle, Percutaneous Approach (ICD-10-PCS; 2019-06-20)
DX: J96.02 Acute respiratory failure with hypercapnia (principal); I50.32 Chronic diastolic (congestive) heart failure; I27.20 Pulmonary hypertension, unspecified; J44.9 Chronic obstructive pulmonary disease, unspecified; I11.0 Hypertensive heart disease with heart failure; D50.9 Iron deficiency anemia, unspecified; F32.9 Major depressive disorder, single episode, unspecified; F41.1 Generalized anxiety disorder; J96.12 Chronic respiratory failure with hypercapnia; J96.11 Chronic respiratory failure with hypoxia; Z23 Encounter for immunization; Z91.19 Patient's noncompliance with other medical treatment and regimen; Z87.820 Personal history of traumatic brain injury; Z87.891 Personal history of nicotine dependence; Z83.6 Family history of other diseases of the respiratory system; Z82.49 Family history of ischemic heart disease and other diseases of the circulatory system
CPT/HCPCS: 36415; 36600; 71045; 80053; 80162; 82550; 82607; 82728; 82746; 82803; 83540; 83550; 83735; 84484; 85025; 85045; 87040; 90686; 93005; 93010; 94640; 94660; 99285; J1650; J3490; J7620

== ENCOUNTER → 2020-03-19 | Outpatient (CLI) | payer BC, MEDICAID ==
--- NOTE | 2020-03-19 14:44 | WOMENS IMAGING REPORT ---
EXAM DESCRIPTION: 3D SCREENING MAMMO BILAT IMAGES COMPLETED DATE/TIME: 03/19/2020 2:14 pm REASON FOR STUDY: ROUTINE SCREEWNING MAMMOGRAM Z12.31 Z12.31 ENCNTR SCREEN MAMMOGRAM FOR MALIGNANT NEOPLASM OF JOÃO COMPARISON: No priors, reportedly baseline. EXAM PARAMETERS: Standard craniocaudal and mediolateral oblique views of each breast recorded using digital acquisition and breast tomosynthesis. Read with the assistance of CAD. .[facility] - [employer] Version 9.2 LIMITATIONS: MLO views in particular are somewhat limited due to patient positioning difficulties. Best images possible. FINDINGS: Findings present which are benign by mammographic criteria. No suspicious masses, calcific ations or architectural distortion. Pertinent benign findings: Lateral asymmetries, particularly on the left. Non masslike appearance. Dalton to be asymmetric fibroglandular tissue. Benign mammographic findings may include one or more of the following: Smooth masses, popcorn/rim/coa rse calcifications, asymmetries, post-procedure changes, and lesions with long-standing stability. IMPRESSION: BENIGN MAMMOGRAPHIC FINDINGS. BIRADS 2 BREAST DENSITY: b. There are scattered areas of fibroglandular density. BIRAD: ASSESSMENT: 2 BENIGN FINDING(S) RECOMMENDATION: ROUTINE SCREENING COMMENT: The patient has been notified of the results by letter per [place] requirements. Additional no tification policies are in place for contacting patient with suspicious or incomplete findings. Quality ID #[id number]: The [employer] recommends an annual screening mammogram for women aged 40 years or over. This facility utilizes a reminder system to ensure that all patients receive reminder letters, and/or direct phone calls for appointments. This includes reminders for routine scr eening mammograms, diagnostic mammograms, or other Breast Imaging Interventions when appropriate. Th is patient will be placed in the appropriate reminder system. TECHNICAL DOCUMENTATION: FINDING NUMBER: (1) ASSESSMENT: (1) JOB ID: [id number] 2010 [employer]- All Rights Reserved Reading location - IP/workstation name: [email or web address]
== END ==
LOC: WI 13:42
PROVIDERS: ATTEND Physician Assistant
DX: Z12.31 Encounter for screening mammogram for malignant neoplasm of breast (principal)
CPT/HCPCS: 77063; 77067